=== PATIENT | male | born 1960 | race Hispanic/Latino ===

== ENCOUNTER 2016-12-19 17:35 | Emergency (ER) | payer MEDICARE, MEDICAID ==
[2016-12-19 17:36] VITALS: PULSE 71
[2016-12-19 17:41] VITALS: BP 114/60; TEMP 98.7
[2016-12-19 17:42] VITALS: BMI 29.9
--- NOTE | 2016-12-19 18:14 | ED PDOC ---
Arrival/HPI - General Chief Complaint: Shortness Of Breath Time Seen by Provider: 12/19/16 17:41 Historian: Patient - History of Present Illness Narrative History of Present Illness (Text): 12/19/16 18:06 A 56 year old male, whose past medical history includes hypertension, CHF on lasix, COPD, atrial fibrillation on coumadin and anemia, presents to the emergency department complaining of worsening cough for the past few days. Patient notes a productive cough but denies any fever, chills, nausea, vomiting , diarrhea, abdominal pain, chest pain or any other complaints. He says he does get a little shortness of breathe but that's his baseline. PMD: Dr. Bowman Time/Duration: Other (few days) Symptom Course: Worsening Quality: Other Context: Home Past Medical History - Provider Review Nursing Documentation Reviewed: Yes - Infectious Disease Hx of Infectious Diseases: None - Tetanus Immunization Tetanus Immunization: Unknown - Past Medical History Past Medical History: Non-Contributing - Cardiac Hx Cardiac Disorders: Yes (ASHDSTEPHANIA) Hx Atrial Fibrillation: Yes Hx Congestive Heart Failure: Yes Hx Hypertension: Yes - Pulmonary Hx Respiratory Disorders: Yes Hx Chronic Obstructive Pulmonary Disease (COPD): Yes - Neurological Hx Neurological Disorder: No HX Cerebrovascular Accident: No - HEENT Hx HEENT Disorder: Yes (CONTACTS,WEARS RX GLASSES AT TIMES,H/O OF NOSEBLEEDS) Other/Comment: nosebleeds - Renal Hx Renal Disorder: No - Endocrine/Metabolic Hx Endocrine Disorders: No - Hematological/Oncological Hx Blood Disorders: Yes Hx Anemia: Yes - Integumentary Hx Dermatological Disorder: No - Musculoskeletal/Rheumatological Hx Musculoskeletal Disorders: No Hx Falls: No - Gastrointestinal Hx Gastrointestinal Disorders: Yes (APPENDECTOMY,COLON SURGERY) Hx Gastroesophageal Reflux: Yes Other/Comment: COLS SURGERY A CHILD. PER PT. ,SWALLOWED AN UNKNOWN FOREING OBJ AND SOME PIECES ARE LEFT SHOWED IN XRAYS.DEVELOPED ADHESIONS. - Genitourinary/Gynecological Hx Genitourinary Disorders: No Hx Sexually Transmitted Diseases: No - Psychiatric Hx Psychophysiologic Disorder: No Hx Depression: No Hx Substance Use: No - Past Surgical History Past Surgical History: Non-Contributing - Surgical History Hx Appendectomy: Yes (54 yrs ago) - Anesthesia Hx Anesthesia: Yes Hx Anesthesia Reactions: No Hx Malignant Hyperthermia: No - Suicidal Assessment Feels Threatened In Home Enviroment: No Family/Social History - Physician Review Nursing Documentation Reviewed: Yes Family/Social History: No Known Family HX Smoking Status: Current Some Days Smoker Hx Alcohol Use: No Hx Substance Use: No Substance used: Heroin and opioid use Hx Substance Use Treatment: Yes Allergies/Home Meds Allergies/Adverse Reactions: Allergies No Known Allergies Allergy (Verified 12/19/16 17:42) Home Medications: Home Meds Medication Instructions Recorded Confirmed Warfarin Sodium [Coumadin] 3 mg PO QPM 11/07/13 12/19/16 Roflumilast [Daliresp] 500 mcg PO DAILY 08/04/14 12/19/16 Aspirin [Aspirin EC] 81 mg PO DAILY 11/12/14 12/19/16 Alprazolam [Alprazolam Xr] 0.5 mg PO HS PRN 11/18/15 12/19/16 Digoxin [Lanoxin] 0.125 mg PO BID 11/18/15 12/19/16 Furosemide [Lasix] 40 mg PO QAM 11/18/15 12/19/16 Montelukast [Singulair] 10 mg PO DAILY 11/18/15 12/19/16 Potassium Chloride [Klor-Con 10] 10 meq PO DAILY 11/18/15 12/19/16 Prednisone [Rena] 10 mg PO DAILY 11/18/15 12/19/16 Verapamil [Verapamil HCl] 80 mg PO TID 11/18/15 12/19/16 Arformoterol [Brovana] 15 mcg IH BID 01/27/16 12/19/16 Lubiprostone [Amitiza] 24 mcg PO DAILY 01/27/16 12/19/16 Atenolol [Tenormin] 25 mg PO DAILY 12/19/16 12/19/16 Budesonide [Budesonide] 1 inh INH BID 12/19/16 12/19/16 Digoxin [Lanoxin] 0.125 mg PO DAILY 12/19/16 12/19/16 Polyethylene Glycol 3350 [Miralax] 1 cap PO DAILY 12/19/16 12/19/16 Review of Systems - Physician Review All systems were reviewed & negative as marked: Yes - Review of Systems Constitutional: absent: Fevers, Night Sweats Respiratory: SOB, Cough, Sputum Cardiovascular: absent: Chest Pain Gastrointestinal: absent: Abdominal Pain, Diarrhea, Nausea, Vomiting Physical Exam Vital Signs Reviewed: Yes Vital Signs Temp Pulse Resp BP Pulse Ox 12/19/16 20:14 68 17 96 12/19/16 17:45 22 95 12/19/16 17:40 98.7 F 80 17 114/60 95 Temperature: Afebrile Blood Pressure: Normal Pulse: Regular Respiratory Rate: Normal Appearance: Positive for: Well-Appearing, Non-Toxic, Comfortable Pain Distress: None Mental Status: Positive for: Alert and Oriented X 3 - Systems Exam Head: Present: Atraumatic, Normocephalic Pupils: Present: PERRL Extroacular Muscles: Present: EOMI Conjunctiva: Present: Normal Mouth: Present: Moist Mucous Membranes Neck: Present: Normal Range of Motion. No: JVD Respiratory/Chest: Present: Clear to Auscultation, Good Air Exchange. No: Respiratory Distress, Accessory Muscle Use Cardiovascular: Present: Regular Rate and Rhythm, Normal S1, S2. No: Murmurs Abdomen: Present: Normal Bowel Sounds. No: Tenderness, Distention, Peritoneal Signs Back: Present: Normal Inspection Upper Extremity: Present: Normal Inspection. No: Cyanosis, Edema Lower Extremity: Present: Normal Inspection, NORMAL PULSES. No: Edema, CALF TENDERNESS Neurological: Present: GCS=15, CN II-XII Intact, Speech Normal Skin: Present: Warm, Dry, Normal Color. No: Rashes Psychiatric: Present: Alert, Oriented x 3, Normal Insight, Normal Concentration Medical Decision Making ED Course and Treatment: 12/19/16 18:06 Impression: A 56 year old male with shortness of breath and productive cough. On exam, lungs clear to auscultation bilaterally and no edema. Differential Diagnosis included but are not limited to: Pneumonia vs Bronchitis Plan: -- Chest xray -- EKG -- Labs -- Blood culture -- Reassess and disposition Progress Notes: EKG shows atrial fibrillation at 72 BPM with Q-waves in inferior leads, with no changes from prior on 08/08/16. Interpreted by me. 12/19/16 20:54 Patient's CXR is negative for infiltrate. He saturates at 95-96% on RA. He's on oxygen as needed at home. He denies any shortness of breathe anymore. He was given Doxycycline secondary to elevated WBC and mild bandemia. He does not want to stay in the hospital. He states he wants outpatient treatment and will f/u with Dr. Bowman tomorrow morning. He undestands risk of sepsis and worsening shortness of breathe including disability and . is here with his oxygen to take him home. - Lab Interpretations Lab Results: 12/19/16 18:01 12/19/16 18:01 Lab Results 12/19/16 18:01: Sodium 138, Potassium 4.0, Chloride 95 L, Carbon Dioxide 35 H, Anion Gap 12, BUN 11, Creatinine 0.7, Est GFR ( Amer) > 60, Est GFR (Non- Af Amer) > 60, Random Glucose 131 H, Calcium 9.3, Magnesium 1.9, Lactate Dehydrogenase 326 L, Total Creatine Kinase 43, Troponin I < 0.01, NT-Pro-B Natriuret Pep 327 12/19/16 18:01: PT 23.5 H, INR 2.18 H, APTT 35.7 H 12/19/16 18:01: WBC 12.0 H D, RBC 5.04, Hgb 11.7 L, Hct 37.7 L, MCV 74.8 L, MCH 23.2 L, MCHC 31.0, RDW 20.6 H, Plt Count 273, MPV 10.0, Neutrophils % (Manual) 84 H, Band Neutrophils % 5 H, Lymphocytes % (Manual) 5 L, Monocytes % (Manual) 3 , Eosinophils % (Manual) 3, Platelet Evaluation n, Anisocytosis (manual) 1+, Spherocytes Slight I have reviewed the lab results: Yes Interpretation: Abnormal lab values (elevated wbc and bandemia) - RAD Interpretation Radiology Orders: 12/19/16 18:06 CHEST PORTABLE [RAD] Stat - Medication Orders Current Medication Orders: Discontinued Medications Doxycycline Hyclate (Doryx) 100 mg PO STAT STA PRN Reason: Protocol Stop: 12/19/16 19:07 Last Admin: 12/19/16 19:16 Dose: 100 mg - Scribe Statement The provider has reviewed the documentation as recorded by the Rigoberto Riggs Provider Scribe Attestation: All medical record entries made by the Scribe were at my direction and personally dictated by me. I have reviewed the chart and agree that the record accurately reflects my personal performance of the history, physical exam, medical decision making, and the department course for this patient. I have also personally directed, reviewed, and agree with the discharge instructions and disposition. Disposition/Present on Arrival - Present on Arrival Any Indicators Present on Arrival: No History of DVT/PE: No History of Uncontrolled Diabetes: No Urinary Catheter: No History of Decub. Ulcer: No History Surgical Site Infection Following: None - Disposition Have Diagnosis and Disposition been Completed?: Yes Diagnosis: Bronchitis Disposition: HOME/ ROUTINE Disposition Time: 20:57 Patient Plan: Discharge Condition: IMPROVED Discharge Instructions (ExitCare): Acute Bronchitis (ED) Additional Instructions: Mr Cano, thank you for letting us take care of you today. Your provider was Dr. Underwood. You were treated for Bronchitis. The emergency medical care you received today was directed at your acute symptoms. If you were prescribed any medication, please fill it and take as directed. It may take several days for your symptoms to resolve. Return to the Emergency Department if your symptoms worsen, do not improve, or if you have any other problems. Please contact your doctor or call one of the physicians/clinics you have been referred to that are listed on the Patient Visit Information form that is included in your discharge packet. Bring any paperwork you were given at discharge with you along with any medications you are taking to your follow up visit. Our treatment cannot replace ongoing medical care by a primary care provider (PCP) outside of the emergency department. Thank you for allowing the [facility] team to be part of your care today. If you had an X-Ray or CT scan: A Radiologist will review the ED reading if any change in treatment is needed we will contact you. If you had a blood, urine, or wound culture: It will take several days for the results, if any change in treatment is needed we will contact you. If you had an STI test: It will take 48 hours for the results. Please call after 1 week if you have not heard back. Prescriptions: Doxycycline Hyclate 100 mg PO BID #20 capsule Referrals: Ross Bowman MD [Primary Care Provider] - Follow up with primary Forms: [employer] ([place]ian), WORK NOTE
[2016-12-19 18:32] LABS: BLOOD UREA NITROGEN 11 mg/dL (7-21); CALCIUM 9.3 mg/dL (8.4-10.5); CARBON DIOXIDE 35 mmol/L (21-33); CHLORIDE 95 mmol/L (98-107); GFR AFRICAN-AMERICAN > 60; GLUCOSE,RANDOM 131 mg/dL (70-110); MAGNESIUM 1.9 mg/dL (1.7-2.2); SODIUM 138 mmol/L (132-148)
[2016-12-19 18:33] LABS: HEMATOCRIT 37.7 % (42.0-52.0); MEAN CELL VOLUME 74.8 fL (80.0-105.0); MEAN CORPUSCULAR HEMOGLOBIN 23.2 pg (25.0-35.0); PLATELET COUNT 273 10^3/uL (120.0-450.0); RED CELL DISTRIBUTION WIDTH 20.6 % (11.5-14.5)
[2016-12-19 18:41] LABS: ADD MANUAL DIFF? YES
[2016-12-19 18:44] LABS: TROPONIN I < 0.01 ng/mL
[2016-12-19 18:55] LABS: INR 2.18 (0.93-1.08); PARTIAL THROMBOPLASTIN TIME 35.7 Seconds (23.7-30.8)
[2016-12-19 19:36] LABS: ANISOCYTOSIS 1+; BAND 5 % (0-2); EOSINOPHIL 3 % (0.0-3.0); NEUTROPHIL 84 % (50.0-70.0); PLATELET ESTIMATE n (NORMAL)
[2016-12-19 19:37] LABS: SPHEROCYTE SLIGHT
[2016-12-19 20:22] VITALS: PULSE 68; RESP 17; O2SAT 96
--- NOTE | 2016-12-20 08:22 | RAD ---
HISTORY: cough r/o pna COMPARISON: No prior. FINDINGS: LUNGS: Patchy right basilar opacity. Possible pneumonia. PLEURA: No significant pleural effusion identified, no pneumothorax apparent. CARDIOVASCULAR: Normal. OSSEOUS STRUCTURES: No significant abnormalities. VISUALIZED UPPER ABDOMEN: Normal. OTHER FINDINGS: None. IMPRESSION: Patchy right basilar opacity. Possible pneumonia. Followup advised.
--- NOTE | 2016-12-20 12:45 | CARD ---
APPROVED REPORT EKG Measurement Heart [id number] <Conclusion> Atrial fibrillation Possible Inferior infarct, age undetermined Abnormal ECG
== END 2016-12-19 20:32 | disposition home or self-care (01) ==
LOC: ED 17:35
DX: J20.9 Acute bronchitis, unspecified (principal); I10 Essential (primary) hypertension; I50.9 Heart failure, unspecified; I48.91 Unspecified atrial fibrillation; Z79.01 Long term (current) use of anticoagulants; Z72.0 Tobacco use

== ENCOUNTER 2017-03-31 10:28 | Inpatient (IN) | payer MEDICARE, MEDICAID ==
[2017-03-31 10:32] VITALS: BMI 28.8
[2017-03-31] MEDS ORDERED: Magnesium Sulfate 2 GM in Sodium Chloride 0.9% 100 ML IVPB ONE (11:17)
[2017-03-31 11:18] LABS: BASO # 0.03 K/mm3 (0.0-2.0); BASO % 0.3 % (0.0-3.0); EOS # 0.1 (0.0-0.7); EOS % 0.8 % (1.5-5.0); GRAN # 7.89 (1.4-6.5); GRAN % 85.9 % (50.0-68.0); HEMATOCRIT 30.3 % (42.0-52.0); LYMPH # 0.6 (1.2-3.4); LYMPH % 6.5 % (22.0-35.0); MEAN CELL VOLUME 67.6 fl (80.0-105.0); MEAN CORPUSCULAR HEMOGLOBIN 18.8 pg (25.0-35.0); MEAN CORPUSCULAR HGB CONC 27.7 g/dl (31.0-37.0); MONO # 0.6 (0.1-0.6); MONO % 6.5 % (1.0-6.0); RED CELL DISTRIBUTION WIDTH 18.3 % (11.5-14.5); WHITE BLOOD COUNT 9.2 10^3/ul (4.5-11.0)
[2017-03-31] MEDS ORDERED: Albuterol-Ipratrop 3 mg / 0.5 (3 ml) UD IH STA (11:18)
[2017-03-31 11:28] LABS: ALB/GLOB RATIO 1.5 (1.1-1.8); ALKALINE PHOSPHATASE 78 U/L (38-126); ALT/SGPT 47 U/L (7-56); AST/SGOT 28 U/L (17-59); BILIRUBIN,TOTAL 0.7 mg/dL (0.2-1.3); BLOOD UREA NITROGEN 8 mg/dL (7-21); CALCIUM 8.7 mg/dL (8.4-10.5); CARBON DIOXIDE 31 mmol/L (21-33); CHLORIDE 92 mmol/L (98-107); GFR AFRICAN-AMERICAN > 60; GLUCOSE,RANDOM 156 mg/dL (70-110); INR 1.68 (0.93-1.08); PARTIAL THROMBOPLASTIN TIME 31.4 Seconds (23.7-30.8); POTASSIUM 3.1 mmol/L (3.6-5.0); SODIUM 135 mmol/L (132-148); TOTAL PROTEIN 6.4 g/dL (5.8-8.3)
[2017-03-31] MEDS ORDERED: Potassium Chloride 40 mEq/30 ml LIQ UD PO STA (11:38)
[2017-03-31 11:44] LABS: TROPONIN I < 0.01 ng/mL
[2017-03-31] MEDS ORDERED: Albuterol-Ipratrop 3 mg / 0.5 (3 ml) UD IH PRN (12:09)
[2017-03-31] MEDS: MethylPREDNISolone 40 mg Vial IVP SCH ×2 (12:18→20:44)
[2017-03-31] MEDS: levoFLOXacin 500 MG TAB PO SCH (12:21)
--- NOTE | 2017-03-31 12:35 | RAD ---
HISTORY: sob COMPARISON: 12/19/2016 FINDINGS: LUNGS: No active pulmonary disease. Minimal bibasilar atelectasis PLEURA: No significant pleural effusion identified, no pneumothorax apparent. CARDIOVASCULAR: Normal. OSSEOUS STRUCTURES: No significant abnormalities. VISUALIZED UPPER ABDOMEN: Normal. OTHER FINDINGS: None. IMPRESSION: No active disease.
--- NOTE | 2017-03-31 12:37 | ED PDOC ---
Arrival/HPI - General Chief Complaint: Shortness Of Breath Time Seen by Provider: 03/31/17 11:17 Historian: Patient - History of Present Illness Narrative History of Present Illness (Text): 03/31/17 12:35 A 57 year old male, whose past medical history includes respiratory failure, COPD exacerbation, PNA, dyspnea, CHF, anemia, drug abuse, and drug dependence, presents to the emergency department with shortness of breath, which began 3 days ago. The patient also reports of a chronic cough and he notes that his lower extremities are a little more swollen than usual. The patient denies any fever, chest pain, abdominal pain, headaches, or any other complaints at this time. The patient is compliant with his medication and is currently on Home L2. Time/Duration: < week (x 3 days ) Symptom Onset: Gradual Symptom Course: Other Activities at Onset: Light Context: Home Past Medical History - Provider Review Nursing Documentation Reviewed: Yes - Infectious Disease Hx of Infectious Diseases: None - Tetanus Immunization Tetanus Immunization: Unknown - Past Medical History Past Medical History: Non-Contributing - Cardiac Hx Cardiac Disorders: Yes (STEPHANIA HUDSON) Hx Atrial Fibrillation: Yes Hx Congestive Heart Failure: Yes Hx Hypertension: Yes - Pulmonary Hx Respiratory Disorders: Yes Hx Chronic Obstructive Pulmonary Disease (COPD): Yes - Neurological Hx Neurological Disorder: No HX Cerebrovascular Accident: No - HEENT Hx HEENT Disorder: Yes (CONTACTS,WEARS RX GLASSES AT TIMES,H/O OF NOSEBLEEDS) Other/Comment: nosebleeds - Renal Hx Renal Disorder: No - Endocrine/Metabolic Hx Endocrine Disorders: No - Hematological/Oncological Hx Blood Disorders: Yes Hx Anemia: Yes - Integumentary Hx Dermatological Disorder: No - Musculoskeletal/Rheumatological Hx Musculoskeletal Disorders: No Hx Falls: No - Gastrointestinal Hx Gastrointestinal Disorders: Yes (APPENDECTOMY,COLON SURGERY) Hx Gastroesophageal Reflux: Yes Other/Comment: COLS SURGERY A CHILD. PER PT. ,SWALLOWED AN UNKNOWN FOREING OBJ AND SOME PIECES ARE LEFT SHOWED IN XRAYS.DEVELOPED ADHESIONS. - Genitourinary/Gynecological Hx Genitourinary Disorders: No Hx Sexually Transmitted Diseases: No - Psychiatric Hx Psychophysiologic Disorder: No Hx Depression: No Hx Substance Use: No - Past Surgical History Past Surgical History: Non-Contributing - Surgical History Hx Appendectomy: Yes (54 yrs ago) - Anesthesia Hx Anesthesia: Yes Hx Anesthesia Reactions: No Hx Malignant Hyperthermia: No - Suicidal Assessment Feels Threatened In Home Enviroment: No Family/Social History - Physician Review Nursing Documentation Reviewed: Yes Family/Social History: No Known Family HX Smoking Status: Former Smoker Hx Alcohol Use: No Hx Substance Use: No Substance used: Heroin and opioid use Hx Substance Use Treatment: Yes Allergies/Home Meds Allergies/Adverse Reactions: Allergies No Known Allergies Allergy (Verified 03/31/17 14:21) Home Medications: Home Meds Medication Instructions Recorded Confirmed Warfarin Sodium [Coumadin] 3 mg PO QPM 11/07/13 03/31/17 Roflumilast [Daliresp] 500 mcg PO DAILY 08/04/14 03/31/17 Aspirin [Aspirin EC] 81 mg PO DAILY 11/12/14 03/31/17 Alprazolam [Alprazolam Xr] 0.5 mg PO HS PRN 11/18/15 03/31/17 Furosemide [Lasix] 40 mg PO QAM 11/18/15 03/31/17 Montelukast [Singulair] 10 mg PO DAILY 11/18/15 03/31/17 Potassium Chloride [Klor-Con 10] 10 meq PO DAILY 11/18/15 03/31/17 Prednisone [Rena] 10 mg PO DAILY 11/18/15 03/31/17 Verapamil [Verapamil HCl] 80 mg PO TID 11/18/15 03/31/17 Arformoterol [Brovana] 15 mcg IH BID 01/27/16 03/31/17 Lubiprostone [Amitiza] 24 mcg PO DAILY 01/27/16 03/31/17 Atenolol [Tenormin] 25 mg PO DAILY 12/19/16 03/31/17 Budesonide [Budesonide] 1 inh INH BID 12/19/16 03/31/17 Digoxin [Lanoxin] 0.125 mg PO DAILY 12/19/16 03/31/17 Polyethylene Glycol 3350 [Miralax] 1 cap PO DAILY 12/19/16 03/31/17 oxyCODONE [oxyCODONE Immediate 15 mg PO TID 03/31/17 03/31/17 Release Tab] Review of Systems - Physician Review All systems were reviewed & negative as marked: Yes - Review of Systems Constitutional: absent: Fevers Respiratory: SOB, Cough Cardiovascular: absent: Chest Pain Gastrointestinal: absent: Abdominal Pain Musculoskeletal: Other (swelling in the lower extremities) Neurological: absent: Headache Physical Exam Vital Signs Reviewed: Yes Vital Signs Temp Pulse Pulse Resp BP Pulse Ox 03/31/17 14:34 91 H 116/52 L 03/31/17 14:22 98.7 F 87 104 H 18 116/52 L 93 L 03/31/17 11:39 104/56 L 03/31/17 10:37 98.7 F 104 H 114/53 L 89 L 03/31/17 10:28 20 Temperature: Afebrile Blood Pressure: Normal Pulse: Regular Respiratory Rate: Normal Appearance: Positive for: Well-Appearing, Non-Toxic, Comfortable Pain Distress: None Mental Status: Positive for: Alert and Oriented X 3 - Systems Exam Head: Present: Atraumatic, Normocephalic Pupils: Present: PERRL Extroacular Muscles: Present: EOMI Conjunctiva: Present: Normal Mouth: Present: Moist Mucous Membranes Neck: Present: Normal Range of Motion Respiratory/Chest: Present: Good Air Exchange, Wheezes (bilateral expiratory wheezing). No: Respiratory Distress, Accessory Muscle Use Cardiovascular: Present: Regular Rate and Rhythm, Normal S1, S2. No: Murmurs Abdomen: Present: Normal Bowel Sounds. No: Tenderness, Distention, Peritoneal Signs Back: Present: Normal Inspection Upper Extremity: Present: Normal Inspection. No: Cyanosis, Edema Lower Extremity: Present: Edema (1+ edema bilaterally ) Neurological: Present: GCS=15, CN II-XII Intact, Speech Normal Skin: Present: Warm, Dry, Normal Color. No: Rashes Psychiatric: Present: Alert, Oriented x 3, Normal Insight, Normal Concentration Medical Decision Making ED Course and Treatment: 03/31/17 12:39 Impression: A 57 year old male with shortness of breath Differential Diagnosis included but are not limited to: Plan: -- EKG -- Physician Consult -- Chest X-ray -- Douneb, Budesonide, Lasix, Levaquin, Predinsode, IV Fluids -- Reassess and disposition -- Hospital admisison Prior Visits: Notes and results from previous visits were reviewed. The patient was last seen in the emergency department on 12/19/16 for shortness of breath. The patient was discharged home. Progress Notes: 03/31/17 12:41 EKG: Ordered, reviewed, and independently interpreted the EKG. Rate : 101 BPM Rhythm : Sinus Tachycardia Interpretation : No ST-segment elevations or depressions, no T-wave inversions, normal intervals. Comparison : No previous EKG for comparison. - Lab Interpretations Lab Results: 03/31/17 10:45 03/31/17 10:45 Lab Results 03/31/17 10:45: Iron 11 L, TIBC 416, % Saturation 3 L 03/31/17 10:45: Ferritin 8.9, Vitamin B12 577, Folate Pending 03/31/17 10:45: NT-Pro-B Natriuret Pep 296 03/31/17 10:45: Digoxin 0.7 L 03/31/17 10:45: Sodium 135, Potassium 3.1 L, Chloride 92 L, Carbon Dioxide 31, Anion Gap 15, BUN 8, Creatinine 0.7, Est GFR ( Amer) > 60, Est GFR (Non- Af Amer) > 60, Random Glucose 156 H, Calcium 8.7, Total Bilirubin 0.7, AST 28, ALT 47, Alkaline Phosphatase 78, Lactate Dehydrogenase 420, Total Creatine Kinase 39, Troponin I < 0.01, Total Protein 6.4, Albumin 3.8, Globulin 2.6, Albumin/Globulin Ratio 1.5 03/31/17 10:45: PT 18.1 H, INR 1.68 H, APTT 31.4 H 03/31/17 10:45: WBC 9.2 D, RBC 4.48, Hgb 8.4 L, Hct 30.3 L, MCV 67.6 L, MCH 18.8 L, MCHC 27.7 L, RDW 18.3 H, Plt Count 216, MPV 9.0, Gran % 85.9 H, Lymph % (Auto) 6.5 L, [place] % (Auto) 6.5 H, Eos % (Auto) 0.8 L, Baso % (Auto) 0.3, Gran # 7.89 H, Lymph # 0.6 L, [place] # 0.6, Eos # 0.1, Baso # 0.03 - RAD Interpretation Radiology Orders: 03/31/17 11:06 CHEST PORTABLE [RAD] Stat - Medication Orders Current Medication Orders: Albuterol/Ipratropium (Duoneb 3 Mg/0.5 Mg (3 Ml) Ud) 3 ml IH [id number] ERNESTINA Last Admin: 03/31/17 14:33 Dose: 3 ml Albuterol/Ipratropium (Duoneb 3 Mg/0.5 Mg (3 Ml) Ud) 3 ml IH Q2H PRN PRN Reason: Shortness of Breath Aspirin (Ecotrin) 81 mg PO DAILY [facility] Last Admin: 03/31/17 12:50 Dose: Atenolol (Tenormin) 25 mg PO DAILY [facility] Last Admin: 03/31/17 14:34 Dose: 25 mg Budesonide (Pulmicort Respules) 0.5 mg IH [id number] [facility] Digoxin (Lanoxin) 0.125 mg PO DAILY [facility] Last Admin: 03/31/17 14:32 Dose: 0.125 mg Furosemide (Lasix) 40 mg PO QAM [facility] Levofloxacin (Levaquin) 500 mg PO DAILY [facility] Last Admin: 03/31/17 12:21 Dose: 500 mg Methylprednisolone (Solu-Medrol) 40 mg IVP Q8H [facility] Last Admin: 03/31/17 12:18 Dose: Non-Formulary Medication (Alprazolam [Alprazolam Xr]) 0.5 mg PO HS PRN PRN Reason: Anxiety Non-Formulary Medication (Lubiprostone [Amitiza]) 24 mcg PO DAILY [facility] Last Admin: 03/31/17 15:36 Dose: Oxycodone HCl (Oxycodone Immediate Release Tab) 15 mg PO TID [facility] Last Admin: 03/31/17 14:32 Dose: 15 mg Verapamil HCl (Calan Tab) 80 mg PO TID [facility] Last Admin: 03/31/17 14:48 Dose: Warfarin Sodium (Coumadin) 3 mg PO QPM [facility] Discontinued Medications Albuterol/Ipratropium (Duoneb 3 Mg/0.5 Mg (3 Ml) Ud) 3 ml IH STAT STA Stop: 03/31/17 11:19 Last Admin: 03/31/17 11:25 Dose: 3 ml Furosemide (Lasix) 20 mg IVP STAT STA Stop: 03/31/17 11:19 Last Admin: 03/31/17 11:39 Dose: 20 mg Magnesium Sulfate 2 gm/ Sodium (Chloride) 104 mls @ 102 mls/hr IVPB ONCE ONE Stop: 03/31/17 12:18 Last Admin: 03/31/17 11:41 Dose: 102 mls/hr Methylprednisolone (Solu-Medrol) 125 mg IVP STAT STA Stop: 03/31/17 11:18 Last Admin: 03/31/17 11:35 Dose: Pneumococcal Polyvalent Vaccine (Pneumovax 23 Vaccine) 0.5 ml IM .ONCE ONE Stop: 03/31/17 15:00 Potassium Chloride (Potassium Chloride Oral Soln) 40 meq PO STAT STA Stop: 03/31/17 11:39 Last Admin: 03/31/17 11:46 Dose: 40 meq - Scribe Statement The provider has reviewed the documentation as recorded by the Rigoberto Tomlinson Provider Scribe Attestation: All medical record entries made by the Rigoberto were at my direction and personally dictated by me. I have reviewed the chart and agree that the record accurately reflects my personal performance of the history, physical exam, medical decision making, and the department course for this patient. I have also personally directed, reviewed, and agree with the discharge instructions and disposition. Disposition/Present on Arrival - Present on Arrival Any Indicators Present on Arrival: No History of DVT/PE: No History of Uncontrolled Diabetes: No Urinary Catheter: No History of Decub. Ulcer: No History Surgical Site Infection Following: None - Disposition Have Diagnosis and Disposition been Completed?: Yes Diagnosis: COPD exacerbation, Dyspnea Disposition: HOSPITALIZED Disposition Time: 11:40 Condition: FAIR ED Critical Care Documentation - Critical Care Total Time (mins): 30 Documented critical care: time excludes all time spent performing seperately billable procedures.
[2017-03-31] MEDS ORDERED: Non Formulary Medication (Alprazolam [Alprazolam Xr] 0.5 MG) PO PRN (12:43)
[2017-03-31 13:37] LABS: IRON 11 ug/dL (45-180)
[2017-03-31] MEDS: Albuterol-Ipratrop 3 mg / 0.5 (3 ml) UD IH SCH ×2 (14:31→14:33)
[2017-03-31] MEDS: oxyCODONE 15 mg Immediate Release Tab PO SCH ×2 (14:32→17:53)
[2017-03-31] MEDS: Digoxin 125 mcg (0.125 mg) Tab PO SCH (14:32)
[2017-03-31] MEDS ORDERED: Pneumococcal 23-Valent Vaccine IM ONE (14:59)
[2017-03-31] MEDS: Non Formulary Medication (Lubiprostone [Amitiza] 24 MCG) PO SCH (15:36)
--- NOTE | 2017-03-31 17:05 | CARD ---
APPROVED REPORT EKG Measurement Heart [id number] <Conclusion> Poor data quality, interpretation may be adversely affected Sinus tachycardia Otherwise normal ECG
[2017-03-31 17:21] LABS: FOLATE 9.9 ng/mL
[2017-03-31] MEDS: Budesonide 0.5 mg/2 ml Inhal Susp UD IH SCH (19:37)
--- NOTE | 2017-03-31 21:06 | CON ---
DATE: 03/31/2017 PULMONARY CONSULTATION HISTORY OF PRESENT ILLNESS: The patient is a 57-year-old male with past medical history significant for advanced chronic obstructive pulmonary disease, on home oxygen, positive extensive smoking history, coronary artery disease, myocardial infarction in the past, cardiomyopathy, cardiac arrhythmias, chronic anemia, who presents to [facility] (Formerly [facility]) with a 3-day history of worsening shortness of breath at rest, dyspnea on exertion, cough, and minimal sputum production. There is no history of chest pain, coughing up of blood, or chest pain-made worse with deep respirations. There is no history of temperatures, chills or infectious exposure. There is no history of night sweats, weight loss or appetite change prior to the above events. No history of leg or calf pains. No history of syncope or diaphoresis. No history of recent travel or trauma. REVIEW OF SYSTEMS: No history of nausea, vomiting, or diarrhea. No acute urinary symptoms. No neurological or musculoskeletal complaints. Rest of the review of system is negative. ALLERGIES: NO KNOWN ALLERGIES. SOCIAL HISTORY: Positive for extensive tobacco usage. Social history also positive for pervious poly substance abuse. Also positive for former alcohol abuse. FAMILY HISTORY: No inheritable diseases. HOME MEDICATIONS: Include oxycodone, Coumadin, verapamil, Daliresp, prednisone, MiraLax, Singulair, Lasix, Lanoxin, budesonide, Tenormin, aspirin, Brovana and alprazolam. PHYSICAL EXAMINATION: GENERAL: The patient is mildly short of breath, but in no acute distress. He is not using accessory muscles for breathing. VITAL SIGNS: Temperature 98.7, pulse 92, respiratory rate 20-22, blood pressure 104/56, and oxygen saturation on nasal cannula is 93%. HEENT: Normocephalic and atraumatic. No JVD. CARDIOVASCULAR: Systolic ejection murmur at the lower left sternal border. No S3 gallop. LUNGS: Decreased breath sounds at the bases. [id number] rhonchi and wheezing bilaterally. EXTREMITIES: No clubbing, cyanosis or edema. Calves are nontender to palpation. GASTROINTESTINAL: Abdomen is soft, nontender, nondistended. Bowel sounds are positive. SKIN: No acute rash. NEUROLOGIC: Limited at the present time. PERTINENT LABORATORY DATA: Chest x-ray was done this morning and reviewed. I also compared the film today with the pervious films. On today's film, there is a mild increase in pulmonary vascular congestion. There are also linear chronic appearing changes at both bases. CBC: White count 9.2, hemoglobin 8.4, hematocrit 30.3, platelets of 216. INR 1.68. Complete metabolic profile: Potassium 3.1, chloride 92, glucose 156. Rest of the metabolic profiles are within normal limits. IMPRESSION: 1. Acute bronchitis. 2. Advanced chronic obstructive pulmonary disease. 3. Coronary artery diseases. 4. Cardiomyopathy. 5. Anemia. PLAN: The patient presents to [facility] (Former[facility]) with a 3-day history of worsening pulmonary symptoms. There is no history of fever or chills. I did review the chest x-ray as above. Compared to the pervious films, there is no significant new change. On physical exam, the patient is in [id number] bronchospasm. His oxygen saturation is 93% on nasal cannula-which is acceptable for him. I will start the patient on moderate dose intravenous steroids, as well as frequent nebulizer treatments. I will also start inhaled Pulmicort. There is no history of temperatures or chills. There is no leukocytosis. However, given the patient's above history and age, I will start the patient on oral antibiotic therapy. The patient will be admitted for close observation. I did discuss the case with Dr. Bryson (emergency room) at length. I will also discuss the above with attending physician. Mane Pineda MD MTDRoberto
--- NOTE | 2017-04-01 00:57 | HP ---
HISTORY OF PRESENT ILLNESS: Mr. Cano is 57-year-old male presented to ED with shortness of breath. He has history of respiratory failure, COPD, history of drug abuse or drug dependence, CHF, anemia, atrial fibrillation. He has chronic anemia. He gets IV infusion on a regular basis. Hemoglobin is low at 8.4. He received IV Solu-Medrol in the ER with some relief in shortness of breath. Also developed swelling of lower extremity. PAST MEDICAL HISTORY: COPD, respiratory failure, atrial fibrillation, congestive cardiac failure, chronic anemia. PAST SURGICAL HISTORY: Appendectomy, colon surgery, GE reflux. FAMILY HISTORY: Noncontributory. PERSONAL HISTORY: History of former smoker. History of substance abuse, heroin, and opioid. ALLERGIES: NO KNOWN DRUG ALLERGIES. HOME MEDICATION: Digoxin 0.125 mg daily, oxycodone p.r.n., atenolol 25 mg daily, Amitiza 24 mcg daily, Brovana 15 mcg b.i.d., Verapamil 80 mg p.o. t.i.d. REVIEW OF SYSTEMS: As per HPI. Rest of the 12-point review of systems reviewed and negative. PHYSICAL EXAMINATION: GENERAL: Comfortable in bed, mild respiratory distress. VITAL SIGNS: Respiratory rate 20 per minute, blood pressure 114/80, heart rate is 89 per minute, temperature 98.7. HEENT: Normal. Pallor positive. CHEST: Air entry present and equal and bilaterally. No added sounds. CARDIOVASCULAR: S1 and S2 normal. No murmur, rub, or gallop. EXTREMITIES: 1+ edema bilaterally. NEUROLOGIC: Alert and oriented x3. No focal sensory or motor deficit. SKIN: Warm, dry. No rash. 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 No focal sensory of motor deficit. PSYCH: Normal. LABORATORY DATA: White count 9.2, hemoglobin 8.4, hematocrit 30.3, platelet count 216. Sodium 135, potassium 3.1, glucose 154. ASSESSMENT: 1. Chronic obstructive pulmonary disease acute exacerbation. 2. Atrial fibrillation. 3. Congestive heart failure. 4. Chronic anemia, iron deficiency. 5. History of drug abuse. PLAN: Admit tele monitoring, pulmonary consultation Dr. Pineda requested. DuoNeb q.6h. p.r.n., Solu-Medrol 40 mg q.8h. Continue cardiac medications, verapamil 80 mg p.o. t.i.d., Lasix 40 mg daily, atenolol 25 mg daily, aspirin 81 mg daily. Oxycodone p.r.n. for pain. Continue anticoagulation with Coumadin 3 mg daily. Monitor PT/INR. Digoxin 0.125 mg daily. Hemoglobin and hematocrit low 8.4, chronic iron deficiency anemia. We will give the one dose of IVR 200 mg. Iron study is ordered. Iron 11 percentage saturation is 3. He had extensive GI workup in the past, but source of bleeding could not be found. Discussed with the patient. Discussed with the staff nurse. Jina Cowart MD
--- NOTE | 2017-04-01 02:10 | CP.PCM.PN ---
Subjective - Date & Time of Evaluation Date of Evaluation: 04/01/17 Time of Evaluation: 02:08 - Subjective Subjective: Patient was seen at bedside. Nurse had called and told that he has stomach pain and can not sleep. States that he is on xanax and can not sleep without xanax. Also states that his stomach was hurting bun not anymore. Denies chest pain , sob, nausea, vomiting. ROS: Negative except as mentioned above. Medical record was reviewed. This 57 year old white male was admitted Has PMH of COPD, CHF, atiral fibrillation, chronic anemia,GERD, appendectomy, colon surgery. draft stoamch pain + can't sleep does not want oxycodone for stomach pain. xanax instead of xanax xr Objective - Vital Signs/Intake and Output Vital Signs (last 24 hours): Temp Pulse Resp BP Pulse Ox 98.1 F 95 H 22 130/75 93 L 03/31/17 18:00 03/31/17 18:00 03/31/17 18:00 03/31/17 18:00 03/31/17 14:22 Intake and Output: 03/31/17 04/01/17 18:59 06:59 Output Total 980 Balance -980 - Medications Medications: Current Medications Albuterol/Ipratropium (Duoneb 3 Mg/0.5 Mg (3 Ml) Ud) 3 ml IH [id number] [facility] Last Admin: 03/31/17 14:33 Dose: 3 ml Albuterol/Ipratropium (Duoneb 3 Mg/0.5 Mg (3 Ml) Ud) 3 ml IH Q2H PRN PRN Reason: Shortness of Breath Last Admin: 03/31/17 19:40 Dose: 3 ml Aspirin (Ecotrin) 81 mg PO DAILY [facility] Last Admin: 03/31/17 12:50 Dose: Not Given Atenolol (Tenormin) 25 mg PO DAILY [facility] Last Admin: 03/31/17 14:34 Dose: 25 mg Budesonide (Pulmicort Respules) 0.5 mg IH [id number] [facility] Last Admin: 03/31/17 19:37 Dose: 0.5 mg Digoxin (Lanoxin) 0.125 mg PO DAILY [facility] Last Admin: 03/31/17 14:32 Dose: 0.125 mg Furosemide (Lasix) 40 mg PO QAM [facility] Levofloxacin (Levaquin) 500 mg PO DAILY [facility] Last Admin: 03/31/17 12:21 Dose: 500 mg Methylprednisolone (Solu-Medrol) 40 mg IVP Q8H [facility] Last Admin: 03/31/17 20:44 Dose: 40 mg Non-Formulary Medication (Alprazolam [Alprazolam Xr]) 0.5 mg PO HS PRN PRN Reason: Anxiety Non-Formulary Medication (Lubiprostone [Amitiza]) 24 mcg PO DAILY [facility] Last Admin: 03/31/17 15:36 Dose: Not Given Oxycodone HCl (Oxycodone Immediate Release Tab) 15 mg PO TID [facility] Last Admin: 03/31/17 17:53 Dose: 15 mg Verapamil HCl (Calan Tab) 80 mg PO TID [facility] Last Admin: 03/31/17 17:50 Dose: 80 mg Warfarin Sodium (Coumadin) 3 mg PO QPM [facility] Last Admin: 03/31/17 17:53 Dose: 3 mg - Labs Labs: PT 18.1 Seconds (9.9-11.8) H 03/31/17 10:45 INR 1.68 (0.93-1.08) H 03/31/17 10:45 APTT 31.4 Seconds (23.7-30.8) H 03/31/17 10:45 Laboratory Last Values WBC 9.2 10^3/ul (4.5-11.0) D 03/31/17 10:45 RBC 4.48 10^6/uL (3.5-6.1) 03/31/17 10:45 Hgb 8.4 g/dL (14.0-18.0) L 03/31/17 10:45 Hct 30.3 % (42.0-52.0) L 03/31/17 10:45 MCV 67.6 fl (80.0-105.0) L 03/31/17 10:45 MCH 18.8 pg (25.0-35.0) L 03/31/17 10:45 MCHC 27.7 g/dl (31.0-37.0) L 03/31/17 10:45 RDW 18.3 % (11.5-14.5) H 03/31/17 10:45 Plt Count 216 10^3/uL (120.0-450.0) 03/31/17 10:45 MPV 9.0 fl (7.0-11.0) 03/31/17 10:45 Gran % 85.9 % (50.0-68.0) H 03/31/17 10:45 Lymph % (Auto) 6.5 % (22.0-35.0) L 03/31/17 10:45 Hitchcock % (Auto) 6.5 % (1.0-6.0) H 03/31/17 10:45 Eos % (Auto) 0.8 % (1.5-5.0) L 03/31/17 10:45 Baso % (Auto) 0.3 % (0.0-3.0) 03/31/17 10:45 Gran # 7.89 (1.4-6.5) H 03/31/17 10:45 Lymph # 0.6 (1.2-3.4) L 03/31/17 10:45 Hitchcock # 0.6 (0.1-0.6) 03/31/17 10:45 Eos # 0.1 (0.0-0.7) 03/31/17 10:45 Baso # 0.03 K/mm3 (0.0-2.0) 03/31/17 10:45 PT 18.1 Seconds (9.9-11.8) H 03/31/17 10:45 INR 1.68 (0.93-1.08) H 03/31/17 10:45 APTT 31.4 Seconds (23.7-30.8) H 03/31/17 10:45 Sodium 135 mmol/L (132-148) 03/31/17 10:45 Potassium 3.1 mmol/L (3.6-5.0) L 03/31/17 10:45 Chloride 92 mmol/L (98-107) L 03/31/17 10:45 Carbon Dioxide 31 mmol/L (21-33) 03/31/17 10:45 Anion Gap 15 (10-20) 03/31/17 10:45 BUN 8 mg/dL (7-21) 03/31/17 10:45 Creatinine 0.7 mg/dL (0.5-1.4) 03/31/17 10:45 Est GFR ( Amer) > 60 03/31/17 10:45 Est GFR (Non-Af Amer) > 60 03/31/17 10:45 Random Glucose 156 mg/dL (70-110) H 03/31/17 10:45 Calcium 8.7 mg/dL (8.4-10.5) 03/31/17 10:45 Iron 11 ug/dL (45-180) L 03/31/17 10:45 TIBC 416 ug/dL (261-462) 03/31/17 10:45 % Saturation 3 % (20-55) L 03/31/17 10:45 Ferritin 8.9 ng/mL 03/31/17 10:45 Total Bilirubin 0.7 mg/dL (0.2-1.3) 03/31/17 10:45 AST 28 U/L (17-59) 03/31/17 10:45 ALT 47 U/L (7-56) 03/31/17 10:45 Alkaline Phosphatase 78 U/L (38-126) 03/31/17 10:45 Lactate Dehydrogenase 420 U/L (333-699) 03/31/17 10:45 Total Creatine Kinase 39 U/L (35-230) 03/31/17 10:45 Troponin I < 0.01 ng/mL 03/31/17 10:45 NT-Pro-B Natriuret Pep 296 pg/mL (0-450) 03/31/17 10:45 Total Protein 6.4 g/dL (5.8-8.3) 03/31/17 10:45 Albumin 3.8 g/dL (3.0-4.8) 03/31/17 10:45 Globulin 2.6 gm/dL 03/31/17 10:45 Albumin/Globulin Ratio 1.5 (1.1-1.8) 03/31/17 10:45 Vitamin B12 577 pg/mL (239-931) 03/31/17 10:45 Folate 9.9 ng/mL 03/31/17 10:45 Digoxin 0.7 ng/mL (0.8-2.0) L 03/31/17 10:45 - Constitutional Appears: Well, No Acute Distress - Head Exam Head Exam: ATRAUMATIC, NORMAL INSPECTION, NORMOCEPHALIC - Eye Exam Eye Exam: Normal appearance - ENT Exam ENT Exam: Normal External Ear Exam - Neck Exam Neck Exam: Normal Inspection - Respiratory Exam Respiratory Exam: NORMAL BREATHING PATTERN - Cardiovascular Exam Cardiovascular Exam: absent: JVD - GI/Abdominal Exam GI & Abdominal Exam: absent: Distended - Rectal Exam Rectal Exam: Deferred - Exam Additional comments: Deferred. - Extremities Exam Extremities Exam: Normal Inspection - Back Exam Back Exam: NORMAL INSPECTION - Neurological Exam Neurological Exam: Alert, Oriented x3 - Psychiatric Exam Psychiatric exam: Normal Affect, Normal Mood - Skin Skin Exam: Normal Color Assessment and Plan - Assessment and Plan (Free Text) Assessment: Anxiety. CHF. COPD. Atrial fibrillation. Chronic anemia. GERD. Plan: Xanax 0.5 mg PO now . Continue present management.
[2017-04-01] MEDS: Albuterol-Ipratrop 3 mg / 0.5 (3 ml) UD IH SCH ×4 (02:46→20:35)
[2017-04-01] MEDS: MethylPREDNISolone 40 mg Vial IVP SCH ×3 (05:43→21:58)
[2017-04-01] MEDS: Budesonide 0.5 mg/2 ml Inhal Susp UD IH SCH ×2 (07:32→20:35)
[2017-04-01] MEDS: Digoxin 125 mcg (0.125 mg) Tab PO SCH (09:52)
[2017-04-01] MEDS: levoFLOXacin 500 MG TAB PO SCH (09:53)
[2017-04-01] MEDS: oxyCODONE 15 mg Immediate Release Tab PO SCH ×3 (09:53→17:08)
[2017-04-01] MEDS: Non Formulary Medication (Lubiprostone [Amitiza] 24 MCG) PO SCH (09:54)
--- NOTE | 2017-04-01 12:52 | RAD ---
HISTORY: pneumonia COMPARISON: Chest x-ray performed 03/31/17 TECHNIQUE: Chest PA and lateral FINDINGS: Examination limited by habitus. LUNGS: Linear atelectasis involving the right middle and lower lobe. Streaky retrocardiac atelectasis/ infiltrate. PLEURA: No significant pleural effusion identified. No definite pneumothorax . CARDIOVASCULAR: Heart size appears within normal limits. OSSEOUS STRUCTURES: Degenerative changes. VISUALIZED UPPER ABDOMEN: Unremarkable. OTHER FINDINGS: None. IMPRESSION: Linear atelectasis involving the right middle and lower lobe. Streaky retrocardiac atelectasis/ infiltrate.
--- NOTE | 2017-04-01 12:56 | PN ---
DATE: 04/01/2017 SUBJECTIVE: The patient has no complaints of any chest pain and no shortness of breath. No headaches or dizziness. He states that the breathing is better. PHYSICAL EXAMINATION VITAL SIGNS: Temperature is 98.1, pulse of 95, blood pressure of 130/75, and respiration of 22. GENERAL: The patient is lying in bed, flat, comfortable. HEENT: No oral lesion. Anicteric sclerae. Moist mucosa. NECK: No JVD, adenopathy, or thyromegaly. CARDIOVASCULAR: S1 and S2, regular. No murmurs, rubs, or gallops. LUNGS: Clear to auscultation bilaterally. No wheeze, rales, or rhonchi. ABDOMEN: Bowel sounds are positive, soft, nontender and nondistended. EXTREMITIES: no cyanosis, clubbing or edema. ASSESSMENT: 1. Acute chronic obstructive pulmonary disease exacerbation. 2. Atrial fibrillation on Coumadin. 3. Anemia, iron deficiency type. 4. Peptic ulcer disease. PLAN: The patient is currently comfortable. He is on verapamil. He want to continue on Coumadin for anticoagulation. The patient is on albuterol. He is on Lasix steroid. The patient is on antibiotics of Levaquin. He is on pain medications oxycodone. The patient is receiving atenolol for his atrial fibrillation and he is on a heart healthy diet. We will continue his steroids and nebulizer treatments. We will continue to follow closely. He is improving clinically. Johnathon Willoughby MD
[2017-04-01 14:13] VITALS: RESP 18
--- NOTE | 2017-04-01 17:12 | PN ---
DATE: 04/01/2017 PULMONARY PROGRESS NOTE SUBJECTIVE: Saturnino is doing significantly better than yesterday. He appeared near desk and is actually miraculously better today. He is anxious to be discharge, but he is really not ready for any such move. He is feeling better. The x-ray originally was poor quality with etiology unclear. It needs to be repeated with PA and lateral films to decide if there is any underlying atelectasis infiltrate, pleural effusion, pneumonia, etc. He is feeling better on medications. He needs to have this corticosteroids decrease slightly. We will follow him very, very closely. He was telling me much about his Daliresp. Although, the medication has helped him dramatically. It is way to expensive. He needs pre-authorization that he felt to ask us for because he missed several appointments. We will try to do this for him and if not possible, try to get samples for him in the interim. There is no change in history from what is going from the chart. PHYSICAL EXAMINATION: GENERAL: He is resting comfortably. VITAL SIGNS: Stable. He is afebrile. His heart rate is 80, respiratory rate 16, oxygen sat 97% on supplement oxygen. HEENT: Head is normocephalic, atraumatic. NECK: Supple. No JVD. No bruits. No thyromegaly or mass. CARDIOVASCULAR: Regular rhythm, S1 and S2. No gallops is heard. There is a soft systolic ejection murmur at the lower left sternal border. CHEST: Global decrease in breath sounds, mild rhonchi throughout both lung sousa. Wheezing is still noted bilaterally although it is markedly decreased. ABDOMEN: Soft. Bowel sounds normoactive without mass, guarding, rebound, or organomegaly. EXTREMITIES: Reveal no clubbing, cyanosis. There is trace edema. There is no Homans sign. SKIN: She has no rash or excoriation. NEUROLOGIC: No focal findings. Motor and sensory incoordination is normal. Babinski's downgoing. Deep tendon refluxes is normal. Lymphadenopathy is not present. The supraclavicular notch is clear. There are no nodes palpated in the cervical, inguinal or axillary areas. LABORATORY STUDIES: No new x-ray has been completed, but it needs to be done with a good PA and lateral film. CLINICAL IMPRESSION: 1. Severe chronic obstructive pulmonary disease. This is close to end-stage disease on Daliresp and multiple other medications. 2. Acute bronchitis. 3. Coronary artery disease. 4. Pulmonary vascular congestion, status post. 5. Cardiomyopathy. PLAN: The patient needs a PA and lateral chest. He needs to have this corticosteroid decreased. I need to see if there is any additional change noted. Although, he is clinically better. He is obviously not well enough to go home. We will continue him on bronchodilators, anticholinergics, Daliresp and inhaled corticosteroids. He is still getting nebulizer therapy. No additional problems are noted at this time. We had a long discussion and we will try to push him forward, no longer needs telemetry according to his PMD and we will follow him on the floor. Thank you for the opportunity to see this kemi gentleman. We will see him again in the morning before sending him back to my usual colleagues. Bob Love MD
[2017-04-01] MEDS ORDERED: Non Formulary Medication (Alprazolam [Alprazolam Xr] 0.5 MG) PO PRN (22:31)
[2017-04-02] MEDS: Albuterol-Ipratrop 3 mg / 0.5 (3 ml) UD IH SCH ×3 (01:01→13:43)
[2017-04-02] MEDS: MethylPREDNISolone 40 mg Vial IVP SCH (04:10)
[2017-04-02 07:57] VITALS: O2SAT 95
[2017-04-02] MEDS ORDERED: Iron Sucrose 100 mg/5 ml Inj IVP ONE (09:51)
[2017-04-02 10:43] VITALS: TEMP 97.8
[2017-04-02] MEDS: oxyCODONE 15 mg Immediate Release Tab PO SCH (11:02)
[2017-04-02] MEDS: levoFLOXacin 500 MG TAB PO SCH (11:02)
[2017-04-02] MEDS: Digoxin 125 mcg (0.125 mg) Tab PO SCH (11:02)
[2017-04-02] MEDS: Non Formulary Medication (Lubiprostone [Amitiza] 24 MCG) PO SCH (11:03)
[2017-04-02 11:40] VITALS: BP 125/60; PULSE 82
--- NOTE | 2017-04-02 17:20 | PN ---
DATE: 04/02/2017 PULMONARY PROGRESS NOTE LOCATION: Room 371, bed 2. SUBJECTIVE: The patient is markedly better, doing great. He is still in some minor distress. He has only been here for 2 days, but he is doing well. He has underlying atelectasis and infiltrates. He requires a followup chest x-ray. Clinically, he is doing well; however, the corticosteroids need to be further decreased. PHYSICAL EXAMINATION: GENERAL: He is comfortable, no acute respiratory distress. VITAL SIGNS: Stable. HEENT: Normocephalic. NECK: Supple. No bruit or jugular venous distension. CARDIOVASCULAR: Regular rhythm. S1 and S2 without gallop or rub. There is persistent soft systolic ejection murmur. CHEST: Global decrease in breath sounds. Mild rhonchi and wheezes but markedly improved. ABDOMEN: Soft. Bowel sounds normoactive without mass, guarding, or rebound. No organomegaly. EXTREMITIES: Reveal no clubbing, cyanosis, or edema. No Homans sign is noted. SKIN: No rash or excoriation. NEUROLOGIC: Improved. LYMPHS: Lymphadenopathy is not present. IMAGING: X-ray is pending. CLINICAL IMPRESSION: 1. Severe chronic obstructive pulmonary disease, end-stage disease with poor prognosis. The patient is on Daliresp and has multiple medications that require renewal. 2. Steroid dependent at this time. We will decrease the corticosteroids and see if he does well enough to be discharged soon. He must have oral corticosteroids upon discharge and we can taper this as an outpatient if possible. 3. Coronary artery disease. 4. Pulmonary congestion. 5. Vascular congestion. 6. Cardiomyopathy. PLAN: Await to review chest x-ray, decrease corticosteroids. We will decide with you when appropriate time is for discharge. We will follow with you as necessary. Bob Love MD
[2017-04-02] MEDS ORDERED: MethylPREDNISolone 40 mg Vial IVP SCH (22:00)
--- NOTE | 2017-04-04 09:07 | DS ---
SUBJECTIVE: The patient is a 57-year-old male who came into the hospital because of acute COPD exacerbation. He was placed on nebulizer treatments and given IV steroids. He had improvement of his symptoms. The patient was seen by Pulmonary. He had a chest x-ray that was repeated that shows linear atelectasis. He is going to be discharged home today, follow up as an outpatient. He says his breathing is much better. He has no complaints of any headaches or dizziness. PHYSICAL EXAMINATION: VITAL SIGNS: Temperature is 98, pulse 77, blood pressure is 109/57, respirations 18, O2 saturation is 95%. GENERAL: The patient is lying in bed, flat, comfortable. HEENT: No oral lesion. Anicteric sclerae. Moist mucosa. NECK: No JVD, adenopathy, or thyromegaly. CARDIOVASCULAR: S1 and S2, regular. No murmurs, rubs, or gallops. LUNGS: Clear to auscultation bilaterally. No wheeze, rales, or rhonchi. ABDOMEN: Bowel sounds are positive, soft, nontender and nondistended. EXTREMITIES: No cyanosis, clubbing or edema. ASSESSMENT: 1. Acute chronic obstructive pulmonary disease exacerbation. 2. Congestive heart failure due to systolic dysfunction, chronic, stable. 3. Atrial fibrillation. 4. Chronic anemia, iron deficiency type. PLAN: The patient is currently on Coumadin. The patient is on this for his atrial fibrillation. He has a history of peptic ulcer disease. He was given a dose of Venofer yesterday. He is on antibiotics. This will be continued. I will place him on prednisone at this point and discharge him home to followup as an outpatient. CONDITION: Stable. ACTIVITIES: Increase as tolerated. I will give him another dose of Venofer today as he is not able to see his oncologist. Johnathon Willoughby MD
== END 2017-04-02 15:14 | disposition home or self-care (01) | DRG 191 ==
LOC: ED 10:28 → ERH 11:52 → 2RNO 14:42 → 3RSO 04-01 14:08
PROVIDERS: ADMIT Internal Medicine Nephrology; ATTEND Internal Medicine Nephrology
PROC: 3E0F7GC Introduction of Other Therapeutic Substance into Respiratory Tract, Via Natural or Artificial Opening (ICD-10-PCS; principal; 2017-03-31)
DX: J44.1 Chronic obstructive pulmonary disease with (acute) exacerbation (principal); I50.22 Chronic systolic (congestive) heart failure; I11.0 Hypertensive heart disease with heart failure; I42.9 Cardiomyopathy, unspecified; J44.0 Chronic obstructive pulmonary disease with (acute) lower respiratory infection; J20.9 Acute bronchitis, unspecified; J98.11 Atelectasis; I48.91 Unspecified atrial fibrillation; D50.9 Iron deficiency anemia, unspecified; I25.10 Atherosclerotic heart disease of native coronary artery without angina pectoris; F41.9 Anxiety disorder, unspecified; K21.9 Gastro-esophageal reflux disease without esophagitis; K27.9 Peptic ulcer, site unspecified, unspecified as acute or chronic, without hemorrhage or perforation; Z99.81 Dependence on supplemental oxygen; Z79.01 Long term (current) use of anticoagulants; I25.2 Old myocardial infarction; Z79.52 Long term (current) use of systemic steroids; Z90.49 Acquired absence of other specified parts of digestive tract; Z87.891 Personal history of nicotine dependence

== ENCOUNTER 2017-04-30 12:48 | Emergency (ER) | payer MEDICARE, MEDICAID ==
[2017-04-30 12:48] VITALS: PULSE 82; BMI 28.8
[2017-04-30] MEDS ORDERED: Nitroglycerin 2% Ointment Foilpak UD TOP STA (13:09)
[2017-04-30] MEDS ORDERED: Morphine 2 mg/ml ISec IVP STA (13:09)
[2017-04-30 13:13] VITALS: TEMP 98.6
--- NOTE | 2017-04-30 13:25 | ED PDOC ---
Arrival/HPI - General Chief Complaint: Chest Pain Time Seen by Provider: 04/30/17 12:53 Historian: Patient - History of Present Illness Narrative History of Present Illness (Text): 04/30/17 13:19 A 57 year old male, whose past medical history includes COPD, CHF, anemia, Atrial Fibrillation, complaining of onset chest pain, exertional in nature. Patient describes pain as pressure-like. Patient denies of any cough, shortness of breath, leg pain, back pain, or any other complaints. Also, he mentions regularly experiencing shortness of breath. No PMD Symptom Onset: Gradual Symptom Course: Unchanged Quality: Pressure Past Medical History - Provider Review Nursing Documentation Reviewed: Yes - Infectious Disease Hx of Infectious Diseases: None - Tetanus Immunization Tetanus Immunization: Unknown - Past Medical History Past Medical History: Non-Contributing - Cardiac Hx Cardiac Disorders: Yes (ASHD,AAshelyFIB) Hx Atrial Fibrillation: Yes Hx Congestive Heart Failure: Yes Hx Hypertension: Yes - Pulmonary Hx Respiratory Disorders: Yes Hx Chronic Obstructive Pulmonary Disease (COPD): Yes - Neurological Hx Neurological Disorder: No HX Cerebrovascular Accident: No - HEENT Hx HEENT Disorder: Yes (CONTACTS,WEARS RX GLASSES AT TIMES,H/O OF NOSEBLEEDS) Other/Comment: nosebleeds - Renal Hx Renal Disorder: No - Endocrine/Metabolic Hx Endocrine Disorders: No - Hematological/Oncological Hx Blood Disorders: Yes Hx Anemia: Yes - Integumentary Hx Dermatological Disorder: No - Musculoskeletal/Rheumatological Hx Musculoskeletal Disorders: No Hx Falls: No - Gastrointestinal Hx Gastrointestinal Disorders: Yes (APPENDECTOMY,COLON SURGERY) Hx Gastroesophageal Reflux: Yes Other/Comment: COLS SURGERY A CHILD. PER PT. ,SWALLOWED AN UNKNOWN FOREING OBJ AND SOME PIECES ARE LEFT SHOWED IN XRAYS.DEVELOPED ADHESIONS. - Genitourinary/Gynecological Hx Genitourinary Disorders: No Hx Sexually Transmitted Diseases: No - Psychiatric Hx Psychophysiologic Disorder: No Hx Depression: No Hx Substance Use: No - Past Surgical History Past Surgical History: Non-Contributing - Surgical History Hx Appendectomy: Yes (54 yrs ago) - Anesthesia Hx Anesthesia: Yes Hx Anesthesia Reactions: No Hx Malignant Hyperthermia: No - Suicidal Assessment Feels Threatened In Home Enviroment: No Family/Social History - Physician Review Nursing Documentation Reviewed: Yes Family/Social History: No Known Family HX Smoking Status: Former Smoker Hx Alcohol Use: No Hx Substance Use: No Substance used: Heroin and opioid use Hx Substance Use Treatment: Yes Allergies/Home Meds Allergies/Adverse Reactions: Allergies No Known Allergies Allergy (Verified 04/30/17 13:13) Home Medications: Home Meds Medication Instructions Recorded Confirmed Warfarin Sodium [Coumadin] 3 mg PO QPM 11/07/13 04/30/17 Roflumilast [Daliresp] 500 mcg PO DAILY 08/04/14 04/30/17 Aspirin [Aspirin EC] 81 mg PO DAILY 11/12/14 04/30/17 Alprazolam [Alprazolam Xr] 0.5 mg PO HS PRN 11/18/15 04/30/17 Furosemide [Lasix] 40 mg PO QAM 11/18/15 04/30/17 Montelukast [Singulair] 10 mg PO DAILY 11/18/15 04/30/17 Potassium Chloride [Klor-Con 10] 10 meq PO DAILY 11/18/15 04/30/17 Prednisone [Rena] 10 mg PO DAILY 11/18/15 04/30/17 Verapamil [Calan Tab] 80 mg PO TID 11/18/15 04/30/17 Arformoterol [Brovana] 15 mcg IH BID 01/27/16 04/30/17 Lubiprostone [Amitiza] 24 mcg PO DAILY 01/27/16 04/30/17 Atenolol [Tenormin] 25 mg PO DAILY 12/19/16 04/30/17 Budesonide 1 inh INH BID 12/19/16 04/30/17 Polyethylene Glycol 3350 [Miralax] 1 cap PO PRN PRN 12/19/16 04/30/17 oxyCODONE [oxyCODONE Immediate 15 mg PO TID 03/31/17 04/30/17 Release Tab] Review of Systems - Physician Review All systems were reviewed & negative as marked: Yes - Review of Systems Respiratory: absent: SOB, Cough Cardiovascular: Chest Pain (onset chest pain described as pressure-like) Musculoskeletal: absent: Back Pain, Other (no leg pain) Physical Exam Vital Signs Reviewed: Yes Vital Signs Temp Pulse Resp BP Pulse Ox 04/30/17 13:00 98.6 F 78 16 109/65 94 L Temperature: Afebrile Blood Pressure: Normal Pulse: Regular Respiratory Rate: Normal Appearance: Positive for: Well-Appearing Pain Distress: None Mental Status: Positive for: Alert and Oriented X 3 - Systems Exam Head: Present: Atraumatic, Normocephalic Pupils: Present: PERRL Extroacular Muscles: Present: EOMI Conjunctiva: Present: Normal Mouth: Present: Moist Mucous Membranes Neck: Present: Normal Range of Motion Respiratory/Chest: Present: Clear to Auscultation Cardiovascular: Present: Regular Rate and Rhythm, Normal S1, S2. No: Murmurs Abdomen: Present: Normal Bowel Sounds. No: Tenderness, Distention, Peritoneal Signs Back: Present: Normal Inspection Upper Extremity: Present: Normal Inspection. No: Cyanosis, Edema Lower Extremity: Present: Normal Inspection. No: Edema Neurological: Present: GCS=15, CN II-XII Intact, Speech Normal Skin: Present: Warm, Dry, Normal Color. No: Rashes Psychiatric: Present: Alert, Oriented x 3, Normal Insight, Normal Concentration Medical Decision Making ED Course and Treatment: 04/30/17 13:27 Impression: 57 year old male with onset chest pain. Physical exam shows slightly decreased breath sounds b/l. Plan: -- EKG -- Chest X-ray -- Labs -- Morphine -- Nitroglycerin -- Reassess and disposition Prior Visits: Notes and results from previous visits were reviewed. Patient was last seen in the emergency department on 03/31/2017 for shortness of breath. Patient was admitted. Progress Notes: EKG: Ordered, reviewed, and independently interpreted the EKG. Rate : 96 BPM Rhythm : A-Fib Interpretation : Inferior infarct, no specific ST changes. Comparison : No previous EKG for comparison. 04/30/2017 14:48 Chest X-ray IMPRESSION: No active disease. Dictator: De Mckeon 04/30/17 15:[address] Cowart whom is covering to Dr. Bowman, accepts patient into service. 04/30/17 15:34 Leaving Against Medical Advice (AMA): The patient is choosing to leave against medical advice. I have personally explained to the patient that choosing to do so may result in permanent bodily harm or . I have discussed at great length that without further evaluation and monitoring there may be unforeseen circumstances and/or deterioration causing permanent bodily harm or as a result of their choice. The patient is alert, oriented, and shows the mental capacity to make clear decisions regarding the patients health care at this time. The patient continues to wish to leave against medical advice. In light of the patients decision to leave against medical advice, follow-up has been arranged and the patient is aware of the importance to following up as instructed. The patient has been advised that they should return to the emergency room immediately if they change their mind at any time, or if their condition begins to change or worsen in any way. - Lab Interpretations Lab Results: 04/30/17 13:15 04/30/17 13:15 Lab Results 04/30/17 13:15: WBC 10.0, RBC 4.68, Hgb 8.8 L, Hct 31.5 L, MCV 67.3 L, MCH 18.8 L, MCHC 27.9 L, RDW 19.8 H, Plt Count 271, MPV 9.3 04/30/17 13:15: Sodium 138, Potassium 4.2, Chloride 98, Carbon Dioxide 30, Anion Gap 14, BUN 11, Creatinine 0.7, Est GFR ( Amer) > 60, Est GFR (Non- Af Amer) > 60, Random Glucose 142 H, Calcium 9.3, Total Bilirubin 0.4, AST 28, ALT 48, Alkaline Phosphatase 63, Lactate Dehydrogenase 474, Total Creatine Kinase 48, Troponin I < 0.01, Total Protein 6.2, Albumin 3.9, Globulin 2.3, Albumin/Globulin Ratio 1.7 04/30/17 13:15: PT 26.4 H, INR 2.44 H, APTT 39.1 H I have reviewed the lab results: Yes - RAD Interpretation Radiology Orders: 04/30/17 12:59 CHEST PORTABLE [RAD] Stat - Medication Orders Current Medication Orders: Discontinued Medications Morphine Sulfate (Morphine) 2 mg IVP STAT STA Stop: 04/30/17 13:10 Last Admin: 04/30/17 14:12 Dose: Nitroglycerin (Nitro-Bid 2% Oint) 1 ea TOP ONCE STA Stop: 04/30/17 13:10 Last Admin: 04/30/17 14:12 Dose: - Scribe Statement The provider has reviewed the documentation as recorded by the Rigoberto Simms Provider Scribe Attestation: All medical record entries made by the Audieibtiffany were at my direction and personally dictated by me. I have reviewed the chart and agree that the record accurately reflects my personal performance of the history, physical exam, medical decision making, and the department course for this patient. I have also personally directed, reviewed, and agree with the discharge instructions and disposition. Disposition/Present on Arrival - Present on Arrival Any Indicators Present on Arrival: No History of DVT/PE: No History of Uncontrolled Diabetes: No Urinary Catheter: No History of Decub. Ulcer: No History Surgical Site Infection Following: None - Disposition Have Diagnosis and Disposition been Completed?: Yes Diagnosis: Chest pain Disposition: AGAINST MEDICAL ADVICE Disposition Time: 15:36 Patient Problems: Current Active Problems Problem Status Onset Chest pain Acute Condition: STABLE Discharge Instructions (ExitCare): Chest Pain (ED) Forms: [employer] (Malay)
[2017-04-30 13:39] LABS: HEMATOCRIT 31.5 % (42.0-52.0); MEAN CELL VOLUME 67.3 fl (80.0-105.0); MEAN CORPUSCULAR HEMOGLOBIN 18.8 pg (25.0-35.0); MEAN CORPUSCULAR HGB CONC 27.9 g/dl (31.0-37.0); MEAN PLATELET VOLUME 9.3 fl (7.0-11.0); RED CELL DISTRIBUTION WIDTH 19.8 % (11.5-14.5)
[2017-04-30 13:53] LABS: ALB/GLOB RATIO 1.7 (1.1-1.8); ALKALINE PHOSPHATASE 63 U/L (38-126); ALT/SGPT 48 U/L (7-56); AST/SGOT 28 U/L (17-59); BILIRUBIN,TOTAL 0.4 mg/dL (0.2-1.3); BLOOD UREA NITROGEN 11 mg/dL (7-21); CALCIUM 9.3 mg/dL (8.4-10.5); CARBON DIOXIDE 30 mmol/L (21-33); CHLORIDE 98 mmol/L (98-107); GFR AFRICAN-AMERICAN > 60; GLUCOSE,RANDOM 142 mg/dL (70-110); POTASSIUM 4.2 mmol/L (3.6-5.0); SODIUM 138 mmol/L (132-148); TOTAL PROTEIN 6.2 g/dL (5.8-8.3)
[2017-04-30 14:08] LABS: TROPONIN I < 0.01 ng/mL
[2017-04-30 14:12] LABS: INR 2.44 (0.93-1.08); PARTIAL THROMBOPLASTIN TIME 39.1 Seconds (23.7-30.8)
--- NOTE | 2017-04-30 14:50 | RAD ---
HISTORY: chest pain COMPARISON: 04/01/2017 FINDINGS: LUNGS: No active pulmonary disease. PLEURA: No significant pleural effusion identified, no pneumothorax apparent. CARDIOVASCULAR: Normal. OSSEOUS STRUCTURES: No significant abnormalities. VISUALIZED UPPER ABDOMEN: Normal. OTHER FINDINGS: None. IMPRESSION: No active disease.
[2017-04-30 15:42] VITALS: BP 110/79; PULSE 88; RESP 18; O2SAT 98
--- NOTE | 2017-05-01 07:55 | CARD ---
APPROVED REPORT EKG Measurement Heart [id number] <Conclusion> RSR APC's, new Q in 3
== END 2017-04-30 15:44 | disposition left against medical advice (07) ==
LOC: ED 12:48
DX: R07.9 Chest pain, unspecified (principal); I48.91 Unspecified atrial fibrillation

== ENCOUNTER 2017-08-12 21:38 | Inpatient (IN) | payer MEDICARE, MEDICAID ==
--- NOTE | 2017-08-12 21:54 | ED PDOC ---
Arrival/HPI - General Time Seen by Provider: 08/12/17 21:51 Historian: Patient - History of Present Illness Narrative History of Present Illness (Text): 08/12/17 21:54 Demetrio Ghotra is a 57 year old male, whose past medical history includes COPD, paroxysmal atrial fibrillation, CHF, CAD, [place], hypertension, and chronic back pain, who presents to the Emergency department complaining of worsening shortness of breath for 1 hour prior to arrival. Patient reports associated chest pain and back pain. Patient denies any fever, chills, nausea, vomiting, diarrhea, urinary symptoms, neck pain, headache, dizziness, or any other complaints. PMD: Dr. 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 Love Time/Duration: 1 hour Symptom Course: Unchanged Activities at Onset: Light Context: Home Past Medical History - Provider Review Nursing Documentation Reviewed: Yes - Infectious Disease Hx of Infectious Diseases: None - Tetanus Immunization Tetanus Immunization: Unknown - Past Medical History Past Medical History: Non-Contributing - Cardiac Hx Cardiac Disorders: Yes ([place] 10/2012) Hx Cardiac Arrhythmia: Yes Hx Congestive Heart Failure: Yes Hx Hypertension: Yes Hx Peripheral Edema: Yes - Pulmonary Hx Respiratory Disorders: Yes (on home o2) Hx Chronic Obstructive Pulmonary Disease (COPD): Yes Hx Emphysema: Yes Hx Pneumonia: Yes - Neurological Hx Neurological Disorder: No HX Cerebrovascular Accident: No - HEENT Hx HEENT Disorder: Yes (CONTACTS,WEARS RX GLASSES AT TIMES,H/O OF NOSEBLEEDS) Other/Comment: nosebleeds - Renal Hx Renal Disorder: No - Endocrine/Metabolic Other/Comment: steroid induced diabetes - Hematological/Oncological Hx Blood Disorders: Yes Hx Anemia: Yes (blood transfusion) - Integumentary Other/Comment: ble +1 edema pitting slight redness, tatoo r arm, b/l arms discolored - Musculoskeletal/Rheumatological Hx Musculoskeletal Disorders: No Hx Falls: No Other/Comment: sports injuries b/l ankle fx casted, left fx collarbone sports injury - Gastrointestinal Hx Gastrointestinal Disorders: Yes (APPENDECTOMY,COLON SURGERY) Hx Gastroesophageal Reflux: Yes Other/Comment: colon SURGERY A CHILD. PER PT. ,SWALLOWED some coins SHOWED IN XRAYS.DEVELOPED ADHESIONS.pt was about 20 months old - Genitourinary/Gynecological Hx Prostate Problems: Yes (bph) Hx Sexually Transmitted Diseases: No - Psychiatric Hx Anxiety: Yes Hx Depression: No Hx Substance Use: No - Past Surgical History Past Surgical History: Non-Contributing - Surgical History Hx Appendectomy: Yes (53 yrs ago) Other/Comment: colon sx x2 as a child swallowed coins, bx and polypectomy, egd and colonoscopy - Anesthesia Hx Anesthesia: Yes Hx Anesthesia Reactions: No Hx Malignant Hyperthermia: No - Suicidal Assessment Feels Threatened In Home Enviroment: No Family/Social History - Physician Review Nursing Documentation Reviewed: Yes Family/Social History: Unknown Family HX Smoking Status: Former Smoker Hx Alcohol Use: No Hx Substance Use: No 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 Hx Substance Use Treatment: Yes Allergies/Home Meds Allergies/Adverse Reactions: Allergies No Known Allergies Allergy (Verified 08/12/17 22:09) Home Medications: Home Meds Medication Instructions Recorded Confirmed Roflumilast [Daliresp] 500 mcg PO DAILY 08/04/14 06/04/17 Aspirin [Aspirin EC] 81 mg PO DAILY 11/12/14 06/04/17 Alprazolam [Alprazolam Xr] 0.5 mg PO HS PRN 11/18/15 06/04/17 Furosemide [Lasix] 40 mg PO QAM 11/18/15 05/29/17 Montelukast [Singulair] 10 mg PO DAILY 11/18/15 06/04/17 Potassium Chloride [Klor-Con 10] 10 meq PO DAILY 11/18/15 06/04/17 Prednisone [Rena] 10 mg PO DAILY 11/18/15 05/29/17 Verapamil [Calan Tab] 80 mg PO TID 11/18/15 06/04/17 Arformoterol [Brovana] 15 mcg IH BID 01/27/16 05/29/17 Lubiprostone [Amitiza] 24 mcg PO DAILY 01/27/16 05/29/17 Atenolol [Tenormin] 25 mg PO DAILY 12/19/16 06/04/17 Budesonide 1 inh INH BID 12/19/16 05/29/17 Polyethylene Glycol 3350 [Miralax] 1 cap PO PRN PRN 12/19/16 06/04/17 oxyCODONE [oxyCODONE Immediate 15 mg PO TID 09/01/17 11/05/17 Release Tab] Apixaban [Eliquis] 5 mg PO BID 06/04/17 06/04/17 Clonazepam [Klonopin] 0.5 mg PO BID 06/04/17 06/04/17 Review of Systems - Physician Review All systems were reviewed & negative as marked: Yes - Review of Systems Constitutional: Normal. absent: Fevers Eyes: Normal ENT: Normal Respiratory: SOB. absent: Cough Cardiovascular: Chest Pain Gastrointestinal: Normal. absent: Abdominal Pain, Diarrhea, Nausea, Vomiting Genitourinary Male: Normal. absent: Dysuria, Frequency, Hematuria, Urinary Output Changes Musculoskeletal: Back Pain. absent: Neck Pain Skin: Normal. absent: Rash Neurological: Normal. absent: Headache, Dizziness Endocrine: Normal Hemo/Lymphatic: Normal Psychiatric: Normal Physical Exam Vital Signs Reviewed: Yes Vital Signs Temp Pulse Resp BP Pulse Ox 08/13/17 00:05 66 18 91/63 L 92 L 08/12/17 23:57 69 18 117/70 92 L 08/12/17 22:26 24 08/12/17 22:25 98.4 F 08/12/17 22:05 81 21 144/91 H 95 Temperature: Afebrile Blood Pressure: Normal Pulse: Regular Respiratory Rate: Normal Appearance: Positive for: Well-Appearing, Non-Toxic, Comfortable Pain Distress: None Mental Status: Positive for: Alert and Oriented X 3 - Systems Exam Head: Present: Atraumatic, Normocephalic Pupils: Present: PERRL Extroacular Muscles: Present: EOMI Conjunctiva: Present: Normal Mouth: Present: Moist Mucous Membranes Neck: Present: Normal Range of Motion Respiratory/Chest: Present: Decreased Breath Sounds (Decreased breath sounds bilaterally). No: Respiratory Distress, Accessory Muscle Use Cardiovascular: Present: Regular Rate and Rhythm, Normal S1, S2. No: Murmurs Abdomen: Present: Normal Bowel Sounds. No: Tenderness, Distention, Peritoneal Signs Back: Present: Normal Inspection Upper Extremity: Present: Normal Inspection. No: Cyanosis, Edema Lower Extremity: Present: Normal Inspection. No: Edema Neurological: Present: GCS=15, CN II-XII Intact, Speech Normal Skin: Present: Warm, Dry, Normal Color. No: Rashes Psychiatric: Present: Alert, Oriented x 3, Normal Insight, Normal Concentration Medical Decision Making ED Course and Treatment: 08/12/17 21:54 Impression: 57 year old male complaining of shortness of breath, chest pain, and back pain. Plan: -- EKG -- CXR -- Labs, cardiac enzymes, BNP -- Solu-medrol -- Duoneb -- Reassess and disposition Prior Visits: Notes and results from previous visits were reviewed. On 05/29/2017, pt was seen in the Emergency department for back pain, chest pain, and coughing. Pt was admitted to the hospital for further evaluation. Progress Notes: 08/12/17 22:10 Reviewed EKG, NSR at 74 bpm. Inferior infarct. Non-specific ST/T wave changes. 08/12/17 23:22 Chest X-ray reviewed, shows no acute processes. 08/12/17 23:[address] Cowart, covering for Dr. Bowman, who is aware and agrees with plan. Pt will go to telemetry observation for chest pain under Dr. Bowman's service. - Lab Interpretations Lab Results: 08/12/17 22:20 08/12/17 22:20 Lab Results 08/12/17 22:20: PT 14.7 H, INR 1.28 H, APTT 29.7 08/12/17 22:20: WBC 11.8 H D, RBC 5.24, Hgb 12.5 L D, Hct 40.3 L, MCV 76.9 L D, MCH 23.9 L, MCHC 31.0, RDW 20.0 H, Plt Count 272, MPV 9.8 08/12/17 22:20: Sodium 133, Potassium 4.1, Chloride 93 L, Carbon Dioxide 32, Anion Gap 12, BUN 14, Creatinine 0.7 L, Est GFR ( Amer) > 60, Est GFR ( Non-Af Amer) > 60, Random Glucose 90, Calcium 10.0, Total Bilirubin 0.6, AST 39 , ALT 40, Alkaline Phosphatase 110, Lactate Dehydrogenase 592, Total Creatine Kinase 41, Troponin I < 0.01, NT-Pro-B Natriuret Pep 737 H, Total Protein 7.2, Albumin 4.3, Globulin 2.9, Albumin/Globulin Ratio 1.5 I have reviewed the lab results: Yes - RAD Interpretation Radiology Orders: 08/12/17 21:59 CHEST PORTABLE [RAD] Stat Network Security Consultant: ED Physician - EKG Interpretation Interpreted by ED Physician: Yes Type: 12 lead EKG - Medication Orders Current Medication Orders: Albuterol/Ipratropium (Duoneb 3 Mg/0.5 Mg (3 Ml) Ud) 3 ml IH Q4H PRN PRN Reason: Shortness of Breath Discontinued Medications Albuterol/Ipratropium (Duoneb 3 Mg/0.5 Mg (3 Ml) Ud) 3 ml IH ONCE STA Stop: 08/12/17 21:59 Last Admin: 08/12/17 22:22 Dose: 3 ml Diphenhydramine HCl (Benadryl) 25 mg IVP ONCE ONE Stop: 08/12/17 22:39 Last Admin: 08/12/17 22:40 Dose: 25 mg IVP Administration Document 08/12/17 22:40 YP (Rec: 08/12/17 23:30 YP [id number]) Charges for Administration # of IVP Administrations 1 Hydromorphone HCl (Dilaudid) 2 mg IVP STAT STA Stop: 08/12/17 22:13 Last Admin: 08/12/17 22:22 Dose: 2 mg MAR Pain Assessment Document 08/12/17 22:22 YP (Rec: 08/12/17 22:23 YP [id number]) Pain Reassessment Is this a pain reassessment? No Sleep Is patient sleeping during reassessment? No Presence of Pain Presence of Pain Yes IVP Administration Document 08/12/17 22:22 YP (Rec: 08/12/17 22:23 YP [id number]) Charges for Administration # of IVP Administrations 1 Methylprednisolone (Solu-Medrol) 125 mg IVP ONCE ONE Stop: 08/12/17 21:59 Last Admin: 08/12/17 22:22 Dose: 125 mg IVP Administration Document 08/12/17 22:22 YP (Rec: 08/12/17 22:22 YP [id number]) Charges for Administration # of IVP Administrations 1 - Scribe Statement The provider has reviewed the documentation as recorded by the Scribe Luba Kulkarni All medical record entries made by the Scribe were at my direction and personally dictated by me. I have reviewed the chart and agree that the record accurately reflects my personal performance of the history, physical exam, medical decision making, and the department course for this patient. I have also personally directed, reviewed, and agree with the discharge instructions and disposition. Disposition/Present on Arrival - Present on Arrival Any Indicators Present on Arrival: No History of DVT/PE: No History of Uncontrolled Diabetes: No Urinary Catheter: No History of Decub. Ulcer: No History Surgical Site Infection Following: None - Disposition Have Diagnosis and Disposition been Completed?: Yes Diagnosis: COPD exacerbation, Chest pain Disposition: HOSPITALIZED Disposition Time: 23:56 Patient Plan: Admission Patient Problems: Current Active Problems Problem Status Onset COPD exacerbation Acute Chest pain Acute Condition: STABLE
[2017-08-12] MEDS ORDERED: Albuterol-Ipratrop 3 mg / 0.5 (3 ml) UD IH STA (21:58)
[2017-08-12] MEDS ORDERED: HYDROmorphone 2 mg/ml ISec IVP STA (22:12)
[2017-08-12] MEDS ORDERED: DiphenhydrAMINE 50 mg/ml Inj IVP ONE (22:38)
[2017-08-12 22:49] LABS: HEMOGLOBIN 12.5 g/dL (14.0-18.0); MEAN CELL VOLUME 76.9 fl (80.0-105.0); MEAN CORPUSCULAR HEMOGLOBIN 23.9 pg (25.0-35.0); MEAN PLATELET VOLUME 9.8 fl (7.0-11.0); RBC 5.24 10^6/uL (3.5-6.1); WHITE BLOOD COUNT 11.8 10^3/ul (4.5-11.0)
[2017-08-12 22:57] LABS: ALB/GLOB RATIO 1.5 (1.1-1.8); ALBUMIN 4.3 g/dL (3.0-4.8); ALT/SGPT 40 U/L (7-56); AST/SGOT 39 U/L (17-59); BLOOD UREA NITROGEN 14 mg/dL (7-21); GFR AFRICAN-AMERICAN > 60; GFR NON-AFRICAN AMERICAN > 60
[2017-08-12 23:05] LABS: INR 1.28 (0.93-1.08); PARTIAL THROMBOPLASTIN TIME 29.7 Seconds (25.1-36.5); PROTHROMBIN TIME 14.7 SECONDS (9.4-12.5)
[2017-08-12 23:09] LABS: B-TYPE NATRIURETIC PEPTIDE 737 pg/mL (0-450); TROPONIN I < 0.01 ng/mL
[2017-08-13] MEDS ORDERED: ALPRAZOLAM 0.5 MG PO PRN (00:44)
[2017-08-13] MEDS: Albuterol-Ipratrop 3 mg / 0.5 (3 ml) UD IH PRN (01:28)
[2017-08-13] MEDS ORDERED: HYDROmorphone 0.5 mg/0.5 ml ISec IVP STA (05:35)
--- NOTE | 2017-08-13 08:43 | RAD ---
HISTORY: sob COMPARISON: 06/01/2017 FINDINGS: LUNGS: No active pulmonary disease. PLEURA: No significant pleural effusion identified, no pneumothorax apparent. CARDIOVASCULAR: Normal. OSSEOUS STRUCTURES: No significant abnormalities. VISUALIZED UPPER ABDOMEN: Normal. OTHER FINDINGS: None. IMPRESSION: No active disease.
[2017-08-13] MEDS: oxyCODONE 15 mg Immediate Release Tab PO SCH ×3 (09:02→22:28)
[2017-08-13] MEDS: Potassium Chloride 10 mEq ER Tab PO SCH (11:01)
[2017-08-13] MEDS: LUBIPROSTONE 24 MCG PO SCH (12:24)
[2017-08-13] MEDS: Digoxin 125 mcg (0.125 mg) Tab PO SCH ×2 (14:17→14:31)
[2017-08-13 14:21] VITALS: BMI 28.8
[2017-08-13] MEDS: MethylPREDNISolone 40 mg Vial IVP SCH ×2 (16:02→18:01)
[2017-08-13] MEDS ORDERED: oxyCODONE 15 mg Immediate Release Tab PO PRN (17:04)
[2017-08-13] MEDS: Morphine 2 mg/ml ISec IVP PRN (17:57)
[2017-08-13] MEDS ORDERED: oxyCODONE 15 mg Immediate Release Tab PO SCH (18:15)
[2017-08-13] MEDS: Albuterol-Ipratrop 3 mg / 0.5 (3 ml) UD IH SCH (20:27)
--- NOTE | 2017-08-13 20:37 | HP ---
DATE OF EVALUATION: 08/13/2017 HISTORY OF PRESENT ILLNESS: Mr. Cano is a 57-year-old male, presented to ED with shortness of breath. He has history of hypertension, COPD, paroxysmal atrial fibrillation, and myocardial infarction. He is also complaining of severe back pain. He has chronic back pain. He has history of DVT in the past. Currently, he received nebulizer antibiotics in the ER. Complaining of chills, shortness of breath. No chest pain, no nausea, no vomiting. PAST MEDICAL HISTORY: COPD, CHF, atrial fibrillation, cardiac arrhythmia, hypertension, anemia, history of chronic anemia, history of blood transfusion in the past. PAST SURGICAL HISTORY: Appendectomy, colon surgery, history of BPH. FAMILY HISTORY: Noncontributory. PERSONAL HISTORY: Former smoker. No history of alcohol abuse. ALLERGIES: NO KNOWN DRUG ALLERGIES. MEDICATIONS: Daliresp 500 mcg daily, aspirin 81 mg daily, Xanax 0.5 mg p.o. p.r.n., Lasix 40 mg daily, potassium 10 mEq daily, prednisone 10 mg daily, verapamil 80 mg p.o. t.i.d., Amitiza 24 mcg p.o. daily, atenolol 25 mg daily, Eliquis 5 mg p.o. b.i.d., Klonopin 0.5 mg p.o. b.i.d. REVIEW OF SYSTEMS: As per HPI. Rest of 12-point review of systems reviewed negative. PHYSICAL EXAMINATION: GENERAL: Mild respiratory distress. VITAL SIGNS: Respiratory rate 30 per minute, blood pressure 140/90, pulse ox is 95% on room air, temperature 98.4, heart rate is 130 per minute. HEENT: Normal. NECK: No lymphadenopathy. CHEST: Air entry present and equal bilaterally. No added sounds. CARDIOVASCULAR: S1 and S2 normal. No murmur, no gallop. ABDOMEN: Soft, nontender. No hepatosplenomegaly. Obese. EXTREMITIES: No edema. 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 No focal sensory or motor deficits. SPINE: No focal tenderness. LABORATORY DATA: White count 11.8, hemoglobin 12.5, hematocrit 40.3, platelet count 272. Sodium 133, potassium 4.1, BUN 14, creatinine 0.7, glucose 70. BNP 737. Chest x-ray, no infiltrates. EKG, nonspecific ST-T changes. ASSESSMENT: 1. Chronic obstructive pulmonary disease exacerbation. 2. Congestive heart failure. 3. Coronary artery disease. 4. Back pain. 5. Anemia. 6. Leukocytosis. PLAN: He will be admitted to tele monitoring. DuoNeb q.6 hours p.r.n. Eliquis 5 mg p.o. b.i.d., aspirin 81 mg daily, digoxin 0.125 mg daily, Lasix 40 mg daily, Solu-Medrol 40 mg IV q.6 hours, Singulair 10 mg daily, morphine 2 mg IV q.4 hours p.r.n. for back pain, Xanax 0.5 mg nightly p.r.n. for anxiety, oxycodone for mild to moderate pain at 15 mg q.8 hours, potassium supplementation 10 mEq daily, sotalol 120 mg p.o. q.12 hours. We will continue to monitor the blood count. Cardiology consultation, Dr. Samuel, requested. Pulmonary consultation, Dr. Pineda, requested. Jina Cowart MD MTDRoberto
[2017-08-14] MEDS: oxyCODONE 15 mg Immediate Release Tab PO SCH ×4 (00:41→21:51)
[2017-08-14] MEDS: MethylPREDNISolone 40 mg Vial IVP SCH ×4 (00:44→21:49)
[2017-08-14] MEDS: Albuterol-Ipratrop 3 mg / 0.5 (3 ml) UD IH SCH ×4 (01:46→20:30)
--- NOTE | 2017-08-14 03:13 | CON ---
DATE: 08/13/2017 LOCATION: The patient is in room 275, bed 1. REASON FOR CONSULTATION: Back pain radiating to upper abdominal pain, shortness of breath, history of atrial fibrillation, status post ablation, cardiomyopathy, COPD. HISTORY OF PRESENT ILLNESS: A 57-year-old male who known to have COPD. In June, had an ablation for atrial fibrillation admitting with lower back pain and his lower back pain extend to the upper abdomen, patient had no chest pain. He says when he takes a deep breath it hurts in the back and radiate to the upper abdomen. Therefore he is not taking deep breath and that is causing him marked shortness of breath. He is also very uncomfortable when he lies down or when he walks. Patient said due to back pain he has to sit up. Since ablation, he says he does not have any palpitation. PAST MEDICAL HISTORY: Significant for non-ST segment myocardial infarction in 2013 followed by cardiac catheterization in November 2013 that was essentially normal coronary anatomy and cardiomyopathy possibly secondary to thrombus that went into the coronaries. Later on MUGA scan showed ejection fraction of 54% in October 2013; repeat MUGA in April 2014 showed ejection 50%. Patient had echocardiogram in May 2017 which showed left ventricle size is normal, normal ventricle wall thickness, left ventricle ejection fraction about 50%. Trans-mitral Doppler flow pattern grade I abnormal relaxing pattern, mild pulmonary hypertension with RVSP 49 mmHg. In June 2017, patient had ablation for atrial fibrillation by Dr. Amador, since then he has no palpitation. PERSONAL HISTORY: Used to smoke 1 pack a day, stopped. Denies any drinking. ALLERGIES: PATIENT DENIES ANY ALLERGIES. LIST OF MEDICATIONS AT HOME: The patient was taking Singulair 10 mg p.o. daily, potassium 10 mEq daily, prednisone 10 mg daily, verapamil 80 mg p.o. t.i.d., Brovana 15 mcg IH b.i.d., Amitiza 24 mcg p.o. daily, atenolol 25 mg daily, budesonide 1 inhalation b.i.d., Eliquis 5 mg b.i.d., Klonopin 0.5 b.i.d. PHYSICAL EXAMINATION VITAL SIGNS: Blood pressure 121/89, respirations 18, pulse 99, temperature 97.1. HEENT: Head is normocephalic. Eyes, pupils normal. Conjunctivae normal. Nose and throat normal. NECK: JVP low. Carotids are equal. THORAX: AP diameter is slightly increased. LUNGS: Patient has diminished air entry in the lung. No rales. CARDIOVASCULAR: S1 and S2. ABDOMEN: Soft. Nontender. No organomegaly. EXTREMITIES: No clubbing. No cyanosis. LABORATORY DATA: WBC 11.8, hemoglobin 12.5, hematocrit 40.3, and platelets 272. Sodium 133, potassium 4.1, BUN 14, creatinine 0.7, calcium 10.0. Troponin less than 0.01. NT-pro-B natriuretic peptide 77. Total protein and albumin normal. Chest x-ray clear. EKG showed regular sinus rhythm ____ very small R in lead aVF. DIAGNOSES: Back pain radiating with upper abdominal pain. No chest pain, shortness of breath, chronic obstructive pulmonary disease, nonobstructive coronary artery disease, LV ejection fraction low normal around 50% on the last echo, atrial fibrillation status post ablation, since then patient denies any palpitation PLAN: Patient on Betapace which is sotalol 120 mg p.o q.12 hours, DuoNeb and nebulizer therapy, aspirin 81 daily, Eliquis 5 mg b.i.d., potassium 10 mEq daily, digoxin 0.125 mg p.o. daily, furosemide 40 mg p.o. daily, prednisone 10 mg daily, Singulair 10 mg daily, Solu Medrol 40 mg IV q. 6 hours, Xanax 0.5 mg p.o. q.8 hours. We will monitor with you and we will follow with you. Shaila Resendez MD
[2017-08-14 06:29] LABS: BASO # 0.02 K/mm3 (0.0-2.0); BASO % 0.2 % (0.0-3.0); EOS % 0.1 % (1.5-5.0); GRAN # 7.66 (1.4-6.5); HEMOGLOBIN 12.4 g/dL (14.0-18.0); LYMPH # 0.6 (1.2-3.4); LYMPH % 6.5 % (22.0-35.0); MEAN CORPUSCULAR HEMOGLOBIN 23.8 pg (25.0-35.0); MEAN CORPUSCULAR HGB CONC 31.4 g/dl (31.0-37.0); MEAN PLATELET VOLUME 10.7 fl (7.0-11.0); MONO # 0.4 (0.1-0.6); MONO % 4.2 % (1.0-6.0); RBC 5.2 10^6/uL (3.5-6.1); RED CELL DISTRIBUTION WIDTH 21.5 % (11.5-14.5); WHITE BLOOD COUNT 8.6 10^3/ul (4.5-11.0)
[2017-08-14 06:57] LABS: BLOOD UREA NITROGEN 21 mg/dL (7-21); GFR AFRICAN-AMERICAN > 60; GFR NON-AFRICAN AMERICAN > 60
--- NOTE | 2017-08-14 09:54 | PN ---
DATE: 08/14/2017 PULMONARY NOTE SUBJECTIVE: The patient appears comfortable this morning. He is not short of breath at rest. OBJECTIVE: VITALS: Temperature 98.7, pulse 88, respirations 18, blood pressure 116/59. Oxygen saturation on nasal cannula is 97-98%. HEENT: Normocephalic, atraumatic. No JVD. CARDIOVASCULAR: Systolic ejection murmur at the lower left sternal border. No S3 gallop. LUNGS: Minimal rhonchi. No wheezing. EXTREMITIES: No clubbing, cyanosis, or edema. Calves are nontender to palpation. GI: Abdomen is soft, nontender, and nondistended. Bowel sounds are positive. SKIN: No acute rash. NEUROLOGIC: Limited at the present time. IMPRESSION: 1. Acute back spasms. 2. Advanced chronic obstructive pulmonary disease. 3. Mild bronchospasm. 4. Coronary artery disease. 5. Atrial fibrillation. 6. Chronic anemia. PLAN: The patient appears comfortable this morning. He is not short of breath at rest. On physical exam, there is no significant bronchospasm noted. In addition, there is no significant alveolar-arterial gradient. I will continue the current nebulizer treatments and decrease the intravenous steroids this morning. The patient's main complaint at the present time is his back spasms. He has been in much, much worse bronchospasm in the past. Cardiology evaluation is also noted. Clinical status of the patient is definitely improved - compared to the initial presentation. I will discuss the above with the attending physician. Mane Pineda MD MTDRoberto
[2017-08-14] MEDS: Potassium Chloride 10 mEq ER Tab PO SCH (10:11)
[2017-08-14] MEDS: LUBIPROSTONE 24 MCG PO SCH (10:14)
--- NOTE | 2017-08-14 10:18 | CARD ---
APPROVED REPORT EKG Measurement Heart [id number] <Conclusion> Normal sinus rhythm Cannot rule out Inferior infarct, age undetermined Abnormal ECG
[2017-08-14] MEDS: Digoxin 125 mcg (0.125 mg) Tab PO SCH (13:34)
--- NOTE | 2017-08-14 17:40 | PN ---
DATE: 08/14/2017 REASON FOR CONSULTATION AND FOLLOWUP: Back pain radiating to the abdomen, mild shortness of breath, history of atrial fibrillation, status post ablation, cardiomyopathy, and nonischemic COPD. SUBJECTIVE: The patient denies any chest pain; shortness of breath secondary to back pain, complains of back pain. PHYSICAL EXAMINATION: GENERAL: Not in apparent distress. VITAL SIGNS: As follows: Temperature afebrile, heart rate 88, and blood pressure 116/59. HEENT: PERRLA intact. NECK: Supple. No carotid bruit or thyromegaly. CHEST: Clear to auscultation. HEART: S1 and S2 regular. ABDOMEN: Soft. EXTREMITIES: Clubbing and cyanosis negative. LABORATORY DATA: WBC 8.6, hemoglobin 12.8, hematocrit 39.5, and platelet count 239. Chemistry shows sodium 132, potassium 3.0, chloride 92, CO2 of 32, anion gap of 15, BUN 21, and creatinine 0.7. Troponin is 0.01. IMPRESSION AND PLAN: History of paroxysmal atrial fibrillation, history of radiofrequency ablation, status post converted to normal sinus; last MUGA scan showed an ejection fraction of 54%. Echocardiogram from 2013 shows ejection fraction of 50%, mitral regurgitation, tricuspid regurgitation, right ventricular systolic pressure 49 mmHg. In June, the patient had ablation and admitted with the back pain. Now the patient is in normal sinus. Currently, the patient is off verapamil, off digoxin, off Cardizem. Currently, we will continue Eliquis and sotalol and if remains stable, later on we can discontinue anticoagulation. We will follow with you and we will discontinue Telemetry. Thank you Dr. Cowart for providing us the opportunity in taking care of the patient, Demetrio Cano. Shaila Samuel MD
[2017-08-14] MEDS: Morphine 2 mg/ml ISec IVP PRN (18:48)
--- NOTE | 2017-08-14 22:44 | CP.PCM.PN ---
Subjective - Date & Time of Evaluation Date of Evaluation: 08/14/17 Time of Evaluation: 10:00 - Subjective Subjective: DATE OF EVALUATION: 08/14/2017 HISTORY OF PRESENT ILLNESS: Mr. Cano is a 57-year-old male, presented to ED with shortness of breath. He has history of hypertension, COPD, paroxysmal atrial fibrillation, and myocardial infarction. He is also complaining of severe back pain. He has chronic back pain. He has history of DVT in the past. SOB improved. PAST MEDICAL HISTORY: COPD, CHF, atrial fibrillation, cardiac arrhythmia, hypertension, anemia, history of chronic anemia, history of blood transfusion in the past. PAST SURGICAL HISTORY: Appendectomy, colon surgery, history of BPH. FAMILY HISTORY: Noncontributory. PERSONAL HISTORY: Former smoker. No history of alcohol abuse. ALLERGIES: NO KNOWN DRUG ALLERGIES. MEDICATIONS: Daliresp 500 mcg daily, aspirin 81 mg daily, Xanax 0.5 mg p.o. p.r.n., Lasix 40 mg daily, potassium 10 mEq daily, prednisone 10 mg daily, verapamil 80 mg p.o. t.i.d., Amitiza 24 mcg p.o. daily, atenolol 25 mg daily, Eliquis 5 mg p.o. b.i.d., Klonopin 0.5 mg p.o. b.i.d. REVIEW OF SYSTEMS: As per HPI. Rest of 12-point review of systems reviewed negative. PHYSICAL EXAMINATION: GENERAL: Mild respiratory distress. VITAL SIGNS: reviewed. HEENT: Normal. NECK: No lymphadenopathy. CHEST: Air entry present and equal bilaterally. No added sounds. CARDIOVASCULAR: S1 and S2 normal. No murmur, no gallop. ABDOMEN: Soft, nontender. No hepatosplenomegaly. Obese. EXTREMITIES: No edema. DATA SYSTEMS ANALYST: Alert and oriented x3. No focal sensory or motor deficits. SPINE: No focal tenderness. LABORATORY DATA: reviewed. ASSESSMENT: 1. Chronic obstructive pulmonary disease exacerbation. 2. Congestive heart failure. 3. Coronary artery disease. 4. Back pain. 5. Anemia. 6. Leukocytosis. PLAN: Continue DuoNeb q.6 hours p.r.n. Eliquis 5 mg p.o. b.i.d., aspirin 81 mg daily, digoxin 0.125 mg daily, Lasix 40 mg daily, Solu-Medrol 40 mg IV q.6 hours, Singulair 10 mg daily, morphine 2 mg IV q.4 hours p.r.n. for back pain, Xanax 0.5 mg nightly p.r.n. for anxiety, oxycodone for mild to moderate pain at 15 mg q.8 hours, potassium supplementation 10 mEq daily, sotalol 120 mg p.o. q.12 hours. We will continue to monitor the blood count. Cardiology consultation, Dr. Samuel, appreciated. Pulmonary consultation, Dr. Pineda, appreciated. PSA, SPEP immunofixation for evaluation of back pain. Jina Cowart MD Objective - Vital Signs/Intake and Output Vital Signs (last 24 hours): Temp Pulse Resp BP Pulse Ox 98.8 F 92 H 18 110/71 97 08/14/17 17:47 08/14/17 21:49 08/14/17 17:47 08/14/17 21:49 08/14/17 06:00 Intake and Output: 08/14/17 08/15/17 18:59 06:59 Intake Total 900 Output Total 450 Balance 450 - Medications Medications: Current Medications Albuterol/Ipratropium (Duoneb 3 Mg/0.5 Mg (3 Ml) Ud) 3 ml IH Q4H PRN PRN Reason: Shortness of Breath Last Admin: 08/13/17 01:28 Dose: 3 ml Albuterol/Ipratropium (Duoneb 3 Mg/0.5 Mg (3 Ml) Ud) 3 ml IH [id number] [facility] Last Admin: 08/14/17 20:30 Dose: 3 ml Alprazolam (Xanax) 0.5 mg PO Q8 ERNESTINA PRN Reason: Protocol Last Admin: 08/14/17 21:51 Dose: 0.5 mg Apixaban (Eliquis) 5 mg PO BID [facility] PRN Reason: Protocol Last Admin: 08/14/17 18:48 Dose: 5 mg Aspirin (Ecotrin) 81 mg PO DAILY [facility] Last Admin: 08/14/17 10:12 Dose: 81 mg Digoxin (Lanoxin) 0.125 mg PO 1400 [facility] Last Admin: 08/14/17 13:34 Dose: Not Given Furosemide (Lasix) 40 mg PO QAM [facility] Last Admin: 08/14/17 10:12 Dose: 40 mg Methylprednisolone (Solu-Medrol) 40 mg IVP Q12 [facility] Last Admin: 08/14/17 21:49 Dose: 40 mg Morphine Sulfate (Morphine) 2 mg IVP Q4H PRN PRN Reason: Pain, severe (8-10) Last Admin: 08/14/17 18:48 Dose: 2 mg Alprazolam [ Alprazolam Xr] 0.5 Mg (Home Med) 0.5 mg PO HS PRN PRN Reason: Anxiety Lubiprostone [ Amitiza] 24 Mcg ( Home Med) 24 mcg PO DAILY [facility] Last Admin: 08/14/17 10:14 Dose: Not Given Oxycodone HCl (Oxycodone Immediate Release Tab) 15 mg PO Q8H [facility] Last Admin: 08/14/17 21:51 Dose: 15 mg Potassium Chloride (Klor-Con 10) 10 meq PO DAILY [facility] Last Admin: 08/14/17 10:11 Dose: 10 meq Roflumilast (Daliresp) 500 mcg PO DAILY [facility] Last Admin: 08/14/17 10:12 Dose: 500 mcg Sotalol HCl (Betapace) 120 mg PO Q12 [facility] Last Admin: 08/14/17 21:49 Dose: 120 mg - Labs Labs: 08/14/17 05:20 08/14/17 05:20 PT 14.7 SECONDS (9.4-12.5) H 08/12/17 22:20 INR 1.28 (0.93-1.08) H 08/12/17 22:20 APTT 29.7 Seconds (25.1-36.5) 08/12/17 22:20
[2017-08-15] MEDS: Albuterol-Ipratrop 3 mg / 0.5 (3 ml) UD IH SCH ×4 (01:15→23:03)
[2017-08-15] MEDS: Morphine 2 mg/ml ISec IVP PRN ×2 (01:21→12:29)
[2017-08-15] MEDS ORDERED: MethylPREDNISolone 40 mg Vial IVP STA (01:37)
[2017-08-15] MEDS ORDERED: Albuterol-Ipratrop 3 mg / 0.5 (3 ml) UD IH STA (01:38)
[2017-08-15] MEDS: oxyCODONE 15 mg Immediate Release Tab PO SCH ×3 (05:37→21:30)
[2017-08-15 06:42] LABS: GRAN # 11.31 (1.4-6.5); GRAN % 94.2 % (50.0-68.0); LYMPH # 0.4 (1.2-3.4); LYMPH % 3.7 % (22.0-35.0); MEAN CELL VOLUME 77.2 fl (80.0-105.0); MEAN CORPUSCULAR HEMOGLOBIN 23.8 pg (25.0-35.0); MEAN CORPUSCULAR HGB CONC 30.8 g/dl (31.0-37.0); MONO # 0.3 (0.1-0.6); MONO % 2.1 % (1.0-6.0); PLATELET COUNT 189 10^3/uL (120.0-450.0); RBC 5.04 10^6/uL (3.5-6.1); RED CELL DISTRIBUTION WIDTH 20.1 % (11.5-14.5)
[2017-08-15 07:01] LABS: ALB/GLOB RATIO 1.4 (1.1-1.8); ALBUMIN 3.9 g/dL (3.0-4.8); ALT/SGPT 41 U/L (7-56); AST/SGOT 24 U/L (17-59); BLOOD UREA NITROGEN 20 mg/dL (7-21); CALCIUM 9.7 mg/dL (8.4-10.5); GFR AFRICAN-AMERICAN > 60; GFR NON-AFRICAN AMERICAN > 60; HDL CHOLESTEROL 49 mg/dL (29-60); MAGNESIUM 2.2 mg/dL (1.7-2.2)
[2017-08-15 07:08] LABS: LDL CHOLESTEROL 68 mg/dL (0-129)
--- NOTE | 2017-08-15 07:11 | PN ---
DATE: 08/15/2017 PULMONARY NOTE SUBJECTIVE: The patient appears comfortable this morning. He is not short of breath at rest. PHYSICAL EXAMINATION: VITAL SIGNS: Temperature is 98.0, pulse 98, respirations 18/20, blood pressure 114/87. Oxygen saturation on a non-rebreather is 99%. HEENT: Normocephalic, atraumatic. No JVD. CARDIOVASCULAR: Systolic ejection murmur at the lower left sternal border. No S3 gallop. LUNGS: Minimal/less rhonchi. Few wheezes are also present. EXTREMITIES: No clubbing, cyanosis or edema. Calves are nontender to palpation. GI: Abdomen is soft, nontender and nondistended. Bowel sounds are positive. SKIN: No acute rash. NEUROLOGIC: Exam limited at the present time. IMPRESSION: 1. Acute back spasms. 2. Advanced chronic obstructive pulmonary disease. 3. Mild bronchospasm. 4. Coronary artery disease. 5. Atrial fibrillation. 6. Chronic anemia. PLAN: The patient appears comfortable this morning. He is not short of breath at rest. I did discuss the case with the night nurse at length. The night nurse stated that the patient did experience oxygen desaturation during her shift. The patient was then placed on a non-rebreather mask. At the time of my examination, the patient is quite comfortable. He does state to feeling much better at the time of my examination. I will change him back to nasal cannula. On physical exam, mild bronchospasm remains. I will continue the current nebulizer treatments and intravenous steroids (decreased yesterday) for now. Clinical status of the patient is certainly improved - compared to the initial presentation. However, again, the overall status/prognosis for this patient does remain guarded - as he does continue to have advanced lung disease. I will discuss the above with the attending physician. Mane Pineda MD MTDD
[2017-08-15 08:17] LABS: LYMPHOCYTE 5 % (22.0-35.0); MONOCYTE 5 % (1.0-6.0); NEUTROPHIL 90 % (50.0-70.0); PLATELET ESTIMATE NORMAL (NORMAL)
[2017-08-15] MEDS: Potassium Chloride 10 mEq ER Tab PO SCH (09:20)
[2017-08-15] MEDS: MethylPREDNISolone 40 mg Vial IVP SCH ×2 (09:20→21:24)
[2017-08-15] MEDS: LUBIPROSTONE 24 MCG PO SCH (10:00)
[2017-08-15] MEDS ORDERED: Potassium Chloride 20 mEq ER Tab PO ONE (11:37)
--- NOTE | 2017-08-15 12:52 | CON ---
DATE: 08/13/2017 PULMONARY CONSULTATION REASON FOR CONSULTATION: The patient was seen and examined in the Emergency Room. He is awaiting admission to medical bed, however, medical beds are not available. We will wait for discharges. The patient is known to our services. He is being followed by Dr. Love in office. HISTORY OF PRESENT ILLNESS: The patient has past medical history of COPD, paroxysmal atrial fibrillation, coronary artery disease, congestive heart failure, and mild hypertension. He was complaining of shortness of breath that started according to him few hours prior to admission. He also reported associated chest pain and back pain. Denied any fever, chills, nausea, vomiting, or diarrhea. His private physician is Dr. Bowman and planishing hammer operator is Dr. Love. PAST SURGICAL HISTORY: History of colonic polyps that were removed. ALLERGIES: NO KNOWN DRUG ALLERGIES. HOME MEDICATIONS: Include Singulair, prednisone, Brovana, budesonide, and Klonopin. FAMILY HISTORY: Negative for inherited diseases. SOCIAL HISTORY: He is a milligan smoker. Nondrinker and does not use illicit drugs. REVIEW OF SYSTEMS: Conducted by reviewing all sources. PULMONARY: See history of present illness. CARDIAC: History of cardiac arrhythmia, history of congestive heart failure, history of hypertension. NEUROLOGIC: No complaints. GENITOURINARY: The patient has difficulty passing urine, especially when in distress. The rest of the systems were reviewed and found to be negative. PHYSICAL EXAMINATION: GENERAL: He is awake, alert, in no acute distress. HEAD, EAR, NOSE AND THROAT: Within normal limits. NECK: Supple with no jugular vein distention. CHEST: Symmetrical. HEART: S1 and S2. No S3, regular. LUNGS: Diminished breath sounds bilaterally. Scattered bilateral rhonchi. No wheezing. ABDOMEN: Soft and nontender. No organomegaly. GENITOURINARY: No costovertebral angle tenderness. EXTREMITIES: 1+ pedal edema. NEUROLOGIC: No focal deficits. SKIN: Without cyanosis or skin rashes. IMAGING STUDIES: Chest x-ray shows mild hyperinflation with no acute infiltrates. EKG, normal sinus rhythm, nonspecific ST-T wave changes. LABORATORY DATA: WBC is slightly elevated at 11.8, hemoglobin is slightly reduced at 12.5, and platelets 272,000. Electrolytes are normal. Kidney functions are normal. Pro-BNP is slightly elevated at 737. ASSESSMENT AND PLAN: Exacerbation of chronic obstructive pulmonary disease, chest pain, which will be further evaluated. We will treat these exacerbation of chronic obstructive pulmonary disease with bronchodilator. I now have chest x-ray that I am able to review myself and this shows no cardiomegaly. There is minor atelectatic changes at the right middle lobe. The diaphragms are elevated bilaterally. This is not a good inspiratory fill, so it should be repeated in 24 hours, but does not show acute infiltrates. So he will be treated and evaluated chest pain and will be treated for exacerbation of chronic obstructive pulmonary disease. Jp Lacy MD
[2017-08-15] MEDS: Digoxin 125 mcg (0.125 mg) Tab PO SCH (14:25)
--- NOTE | 2017-08-15 15:53 | PN ---
DATE: 08/15/2017 REASON FOR CONSULTATION: Backache radiating to the abdomen and chest, chronic shortness of breath; atrial fibrillation, status post radiofrequency ablation, cardiomyopathy, mild nonischemic, chronic obstructive pulmonary disease. SUBJECTIVE: complains of back pain that radiates to the front of the abdomen and chest. OBJECTIVE: GENERAL: Not in apparent distress, sits comfortably in bed, but unable to move because of chest pain. VITAL SIGNS: Temperature afebrile, heart rate 90, blood pressure 114/87. HEENT: PERRLA. Extraocular muscles are intact. NECK: Supple. No carotid bruit or thyromegaly. CHEST: Clear to auscultation. HEART: S1 and S2, regular. ABDOMEN: Soft. EXTREMITIES: Clubbing and cyanosis negative. LABORATORY DATA: Blood workup as follows: WBC 12, hemoglobin 12, hematocrit 38.9, platelet counts 189. Chemistry shows sodium of 136, potassium 3.8, chloride 95, carbon dioxide 34, anion gap of 15, BUN 30, creatinine 0.7. IMPRESSION: Back pain, history of nonobstructive coronary artery disease, nonischemic cardiomyopathy, paroxysmal atrial fibrillation, status post radiofrequency ablation, converted to normal sinus, last MUGA scan showed ejection fraction of 54%. Currently, the patient is off verapamil, off digoxin, and off Cardizem. On Eliquis and sotalol. Being followed by Dr. Amador for arrhythmia. If the patient remains stable, we will discontinue long-term anticoagulation. The patient needs to be evaluated for back pain. We will supplement potassium. Thank you Dr. Cowart for providing us the opportunity in taking care of the patient, Mr. Cano. We will supplement potassium. Shaila Samuel MD
[2017-08-15] MEDS: Albuterol-Ipratrop 3 mg / 0.5 (3 ml) UD IH PRN (17:59)
--- NOTE | 2017-08-15 22:20 | CP.PCM.PN ---
Subjective - Date & Time of Evaluation Date of Evaluation: 08/15/17 Time of Evaluation: 09:00 - Subjective Subjective: Shortness of breath improved. Complaining of back pain. On IV steroids. No fever. No chest pain. BP controlled on current meds. Objective - Vital Signs/Intake and Output Vital Signs (last 24 hours): Temp Pulse Resp BP Pulse Ox 98.1 F 89 20 120/69 95 08/15/17 17:32 08/15/17 21:40 08/15/17 20:00 08/15/17 21:20 08/15/17 20:00 - Medications Medications: Current Medications Albuterol/Ipratropium (Duoneb 3 Mg/0.5 Mg (3 Ml) Ud) 3 ml IH [id number] [facility] Last Admin: 08/15/17 13:13 Dose: 3 ml Alprazolam (Xanax) 0.5 mg PO Q8 ENRESTINA PRN Reason: Protocol Last Admin: 08/15/17 21:20 Dose: 0.5 mg Apixaban (Eliquis) 5 mg PO BID [facility] PRN Reason: Protocol Last Admin: 08/15/17 18:03 Dose: 5 mg Aspirin (Ecotrin) 81 mg PO DAILY [facility] Last Admin: 08/15/17 09:23 Dose: 81 mg Digoxin (Lanoxin) 0.125 mg PO 1400 [facility] Last Admin: 08/15/17 14:25 Dose: Not Given Furosemide (Lasix) 40 mg PO QAM [facility] Last Admin: 08/15/17 09:20 Dose: 40 mg Methylprednisolone (Solu-Medrol) 40 mg IVP Q12 [facility] Last Admin: 08/15/17 21:24 Dose: 40 mg Morphine Sulfate (Morphine) 2 mg IVP Q4H PRN PRN Reason: Pain, severe (8-10) Last Admin: 08/15/17 12:29 Dose: 2 mg Alprazolam [ Alprazolam Xr] 0.5 Mg (Home Med) 0.5 mg PO HS PRN PRN Reason: Anxiety Lubiprostone [ Amitiza] 24 Mcg ( Home Med) 24 mcg PO DAILY [facility] Last Admin: 08/15/17 10:00 Dose: Not Given Oxycodone HCl (Oxycodone Immediate Release Tab) 15 mg PO Q8H [facility] Last Admin: 01/16/18 21:30 Dose: 15 mg Potassium Chloride (Klor-Con 10) 10 meq PO DAILY [facility] Last Admin: 08/15/17 09:20 Dose: 10 meq Roflumilast (Daliresp) 500 mcg PO DAILY [facility] Last Admin: 08/15/17 09:21 Dose: 500 mcg Sotalol HCl (Betapace) 120 mg PO Q12 [facility] Last Admin: 08/15/17 21:20 Dose: 120 mg - Labs Labs: 08/15/17 05:30 08/15/17 05:30 PT 14.7 SECONDS (9.4-12.5) H 08/12/17 22:20 INR 1.28 (0.93-1.08) H 08/12/17 22:20 APTT 29.7 Seconds (25.1-36.5) 08/12/17 22:20 - Constitutional Appears: No Acute Distress - Head Exam Head Exam: ATRAUMATIC, NORMAL INSPECTION, NORMOCEPHALIC - Eye Exam Eye Exam: Normal appearance - ENT Exam ENT Exam: Mucous Membranes Moist - Neck Exam Neck Exam: Normal Inspection - Respiratory Exam Respiratory Exam: Clear to Ausculation Bilateral, NORMAL BREATHING PATTERN - Cardiovascular Exam Cardiovascular Exam: REGULAR RHYTHM, +S1, +S2 - GI/Abdominal Exam GI & Abdominal Exam: Soft, Normal Bowel Sounds - Extremities Exam Extremities Exam: Normal Inspection - Back Exam Back Exam: NORMAL INSPECTION - Neurological Exam Neurological Exam: Alert, CN II-XII Intact, Normal Gait, Oriented x3 - Skin Skin Exam: Normal Color Assessment and Plan - Assessment and Plan (Free Text) Assessment: ASSESSMENT: 1. Chronic obstructive pulmonary disease exacerbation. 2. Congestive heart failure. 3. Coronary artery disease. 4. Back pain. 5. Anemia. 6. Leukocytosis. 7. H/O DVT PLAN: Continue DuoNeb q.6 hours p.r.n. On Eliquis 5 mg p.o. b.i.d., aspirin 81 mg daily, digoxin 0.125 mg daily, Lasix 40 mg daily, Solu-Medrol 40 mg IV q.6 hours, Singulair 10 mg daily, morphine 2 mg IV q.4 hours p.r.n. for back pain, Xanax 0.5 mg nightly p.r.n. for anxiety, potassium supplementation 10 mEq daily, sotalol 120 mg p.o. q.12 hours. We will continue to monitor the blood count. Cardiology consultation, Dr. Samuel, appreciated. Pulmonary consultation, Dr. Pineda, appreciated. PSA, SPEP immunofixation for evaluation of back pain. Oxycodone 10 mg Q 4 hr prn for back pain. He has been treated in pain clinic. Jina Cowart MD
[2017-08-16] MEDS: Albuterol-Ipratrop 3 mg / 0.5 (3 ml) UD IH SCH ×4 (03:36→19:26)
[2017-08-16] MEDS: oxyCODONE 15 mg Immediate Release Tab PO SCH (05:39)
[2017-08-16] MEDS ORDERED: Albuterol-Ipratrop 3 mg / 0.5 (3 ml) UD IH STA (05:46)
[2017-08-16 06:13] LABS: ARTERIAL BLOOD GAS HCO3 34.5 mmol/L (21-28); ARTERIAL BLOOD GAS HEMOGLOBIN 11.7 g/dL (11.7-17.4); ARTERIAL BLOOD GAS O2 CAPACITY 16.2 mL/dl (16-24); ARTERIAL BLOOD GAS O2 SAT 86.6 % (95-98); ARTERIAL BLOOD GAS PCO2 52 mm/Hg (35-45); ARTERIAL BLOOD GAS PH 7.43 (7.35-7.45); ARTERIAL BLOOD GAS TCO2 36.1 mmol.L (22-28)
[2017-08-16 06:43] LABS: HEMOGLOBIN 12.7 g/dL (14.0-18.0); MEAN CELL VOLUME 78.4 fl (80.0-105.0); MEAN CORPUSCULAR HEMOGLOBIN 24.2 pg (25.0-35.0); MEAN CORPUSCULAR HGB CONC 30.9 g/dl (31.0-37.0); MEAN PLATELET VOLUME 10.1 fl (7.0-11.0); RBC 5.24 10^6/uL (3.5-6.1); WHITE BLOOD COUNT 14.1 10^3/ul (4.5-11.0)
[2017-08-16 06:55] LABS: BLOOD UREA NITROGEN 23 mg/dL (7-21); CALCIUM 9.6 mg/dL (8.4-10.5); GFR AFRICAN-AMERICAN > 60; GFR NON-AFRICAN AMERICAN > 60; MAGNESIUM 2.5 mg/dL (1.7-2.2)
[2017-08-16 07:03] LABS: ARTERIAL BLOOD GAS HCO3 32.7 mmol/L (21-28); ARTERIAL BLOOD GAS HEMOGLOBIN 11.8 g/dL (11.7-17.4); ARTERIAL BLOOD GAS O2 CAPACITY 16.2 mL/dl (16-24); ARTERIAL BLOOD GAS O2 CONTENT 14.7 ML/dl (15-23); ARTERIAL BLOOD GAS O2 SAT 90.5 % (95-98); ARTERIAL BLOOD GAS PCO2 46 mm/Hg (35-45); ARTERIAL BLOOD GAS PH 7.46 (7.35-7.45); ARTERIAL BLOOD GAS TCO2 34.1 mmol.L (22-28)
[2017-08-16 07:07] LABS: B-TYPE NATRIURETIC PEPTIDE 287 pg/mL (0-450); TROPONIN I < 0.01 ng/mL
--- NOTE | 2017-08-16 07:38 | CP.PCM.PN ---
Subjective - Date & Time of Evaluation Date of Evaluation: 08/16/17 Time of Evaluation: 05:50 - Subjective Subjective: Pt seen stat for his c/o SOB and drop in O2 sat to 82% on 4 litres per min. Pt has history of Copd ,has been on oxycodone and Xanax around the clock Denies c/o chest pain,nausea,vomiting,diaphoresis or any other complaints. O2 sat is 82% on 4LO2/min but other Vital signs are stable Objective - Vital Signs/Intake and Output Vital Signs (last 24 hours): Temp Pulse Resp BP Pulse Ox 98.1 F 86 20 127/90 90 L 08/16/17 06:00 08/16/17 06:00 08/16/17 06:00 08/16/17 06:00 08/16/17 06:00 Intake and Output: 08/16/17 08/16/17 06:59 18:59 Intake Total 120 Output Total 700 Balance -580 - Medications Medications: Current Medications Albuterol/Ipratropium (Duoneb 3 Mg/0.5 Mg (3 Ml) Ud) 3 ml [facility] [id number] Last Admin: 08/16/17 03:36 Dose: 3 ml Alprazolam (Xanax) 0.5 mg PO Q8 ERNESTINA PRN Reason: Protocol Last Admin: 08/16/17 05:39 Dose: 0.5 mg Apixaban (Eliquis) 5 mg PO BID ERNESTINA PRN Reason: Protocol Last Admin: 08/15/17 18:03 Dose: 5 mg Aspirin (Ecotrin) 81 mg PO DAILY [facility] Last Admin: 08/15/17 09:23 Dose: 81 mg Digoxin (Lanoxin) 0.125 mg PO 1400 [facility] Last Admin: 08/15/17 14:25 Dose: Not Given Furosemide (Lasix) 40 mg PO QAM [facility] Last Admin: 08/15/17 09:20 Dose: 40 mg Methylprednisolone (Solu-Medrol) 40 mg IVP Q6 ERNESTINA Morphine Sulfate (Morphine) 2 mg IVP Q4H PRN PRN Reason: Pain, severe (8-10) Last Admin: 08/15/17 12:29 Dose: 2 mg Alprazolam [ Alprazolam Xr] 0.5 Mg (Home Med) 0.5 mg PO HS PRN PRN Reason: Anxiety Lubiprostone [ Amitiza] 24 Mcg ( Home Med) 24 mcg PO DAILY [facility] Last Admin: 08/15/17 10:00 Dose: Not Given Oxycodone HCl (Oxycodone Immediate Release Tab) 15 mg PO Q8H [facility] Last Admin: 08/16/17 05:39 Dose: 15 mg Potassium Chloride (Klor-Con 10) 10 meq PO DAILY [facility] Last Admin: 08/15/17 09:20 Dose: 10 meq Roflumilast (Daliresp) 500 mcg PO DAILY [facility] Last Admin: 08/15/17 09:21 Dose: 500 mcg Sotalol HCl (Betapace) 120 mg PO Q12 [facility] Last Admin: 08/15/17 21:20 Dose: 120 mg - Labs Labs: 08/16/17 06:15 08/16/17 06:15 PT 14.7 SECONDS (9.4-12.5) H 08/12/17 22:20 INR 1.28 (0.93-1.08) H 08/12/17 22:20 APTT 29.7 Seconds (25.1-36.5) 08/12/17 22:20 - Constitutional Appears: In Acute Distress (due to SOB) - Head Exam Head Exam: ATRAUMATIC, NORMAL INSPECTION, NORMOCEPHALIC - Eye Exam Eye Exam: PERRL - ENT Exam ENT Exam: Mucous Membranes Moist - Neck Exam Neck Exam: Normal Inspection - Respiratory Exam Respiratory Exam: Accessory Muscle Use, Decreased Breath Sounds, Wheezes, Respiratory Distress - Cardiovascular Exam Cardiovascular Exam: REGULAR RHYTHM - GI/Abdominal Exam GI & Abdominal Exam: Soft, Normal Bowel Sounds. absent: Tenderness - Extremities Exam Extremities Exam: Normal Inspection. absent: Calf Tenderness - Back Exam Back Exam: NORMAL INSPECTION - Neurological Exam Neurological Exam: Alert, Awake, Oriented x3 - Psychiatric Exam Psychiatric exam: Normal Affect - Skin Skin Exam: Dry, Warm Assessment and Plan - Assessment and Plan (Free Text) Assessment: Exacerbation of COPD Plan: Paient was given Duoneb Rx stat,followed by Solumedrol 125 mg iv push EKG ,CXray, ABGs,.Troponins,CBC,BMP and BNP, ordered stat. Results of ABG discussed with Dr Pineda.Solumedrol 40 mg ivp ordered q 6h.
--- NOTE | 2017-08-16 08:51 | RAD ---
HISTORY: SOB COMPARISON: 08/12/2017 FINDINGS: LUNGS: No active pulmonary disease. PLEURA: No significant pleural effusion identified, no pneumothorax apparent. CARDIOVASCULAR: The heart is normal in size. Mild aortic tortuosity OSSEOUS STRUCTURES: No significant abnormalities. VISUALIZED UPPER ABDOMEN: Normal. OTHER FINDINGS: None. IMPRESSION: No active disease.
--- NOTE | 2017-08-16 10:02 | CARD ---
APPROVED REPORT EKG Measurement Heart [id number] <Conclusion> Normal sinus rhythm Cannot rule out Inferior infarct, age undetermined Abnormal ECG
[2017-08-16] MEDS: Potassium Chloride 10 mEq ER Tab PO SCH (11:17)
[2017-08-16] MEDS: MethylPREDNISolone 40 mg Vial IVP SCH ×2 (11:19→17:25)
[2017-08-16] MEDS: POLYETHYLENE GLYCOL 3350 17 GM/Dose PACKET PO SCH ×2 (11:19→17:24)
[2017-08-16] MEDS: LUBIPROSTONE 24 MCG PO SCH (11:20)
[2017-08-16] MEDS: Morphine 2 mg/ml ISec IVP PRN (11:40)
--- NOTE | 2017-08-16 11:56 | PN ---
DATE: 08/16/2017 SUBJECTIVE: The patient appears comfortable at the present time. He is mildly short of breath, but in no acute distress. PHYSICAL EXAMINATION: VITAL SIGNS: Temperature is 98.1, pulse 81, respirations 20/22, blood pressure 127/90. Oxygen saturation on VentiMask is 90%. HEENT: Normocephalic and atraumatic. No JVD. CARDIOVASCULAR: Systolic ejection murmur at the lower left sternal border. No S3 gallop. LUNGS: Increased rhonchi and wheezing bilaterally. EXTREMITIES: No clubbing, cyanosis or edema. Calves are nontender to palpation. GASTROINTESTINAL: Abdomen is soft, nontender and nondistended. Bowel sounds are positive. SKIN: No acute rash. NEUROLOGIC: Exam limited at the present time. PERTINENT LABORATORY DATA: Chest x-ray was repeated today and reviewed. The chest x-ray is not significantly changed from the previous film. Arterial blood gas was also done on 50% VentiMask. Results are: A pH of 7.46, pCO2 of 46, and pO2 of 55. Oxygen saturation on the arterial blood gas is 91%. IMPRESSION: 1. Acute back spasms. 2. Advanced chronic obstructive pulmonary disease. 3. Increased bronchospasm. 4. Coronary artery disease. 5. Atrial fibrillation. 6. Chronic anemia. PLAN: The patient appears comfortable at the time of my examination. He is mildly short of breath, but in no acute distress. I did discuss the case with the night nurse at length. I have also discussed the case with Dr. Collazo (house physician). Apparently, upon awakening this morning, the patient experienced worsening shortness of breath. He was also noted to be audibly wheezing. I did review the chest x-ray as above. The chest x-ray has not significantly changed from the previous film. I have also reviewed the arterial blood gas. The arterial blood gas does show some CO2 retention, but with normal pH. There is an increase in the alveolar-arterial gradient. I will continue with the VentiMask for now. On physical exam, there is increased bronchospasm noted. The steroids have been increased. I will continue with the nebulizer treatments. One of the major problems in this case is the patient's insistence on frequent pain medications and narcotics. This is certainly a precarious situation, given his advanced chronic obstructive pulmonary disease. The overall status for this patient does remain guarded. I will discuss the above with the attending physician later this morning. Mane Pineda MD MTDRoberto
[2017-08-16] MEDS: oxyCODONE 15 mg Immediate Release Tab PO PRN ×3 (14:46→23:23)
[2017-08-16] MEDS: Digoxin 125 mcg (0.125 mg) Tab PO SCH ×2 (14:47→14:54)
[2017-08-16 14:54] VITALS: PULSE 80
--- NOTE | 2017-08-16 16:02 | PN ---
DATE: 08/16/2017 REASON FOR CONSULTATION AND FOLLOWUP: Back pain radiating to the abdomen and chest, chronic atrial fibrillation, status post radiofrequency ablation, now the patient in normal sinus, nonischemic cardiomyopathy, COPD, obesity. SUBJECTIVE: The patient denies any chest pain, shortness of breath or any palpitations. OBJECTIVE: GENERAL: Not in apparent distress. VITAL SIGNS: Temperature afebrile, heart rate 81, blood pressure 127/90. HEENT: PERRLA, extraocular muscles intact. NECK: Supple. No carotid bruits or thyromegaly. CHEST: Cleat to auscultation. HEART: S1 and S2 regular. ABDOMEN: Soft. LABORATORY DATA: Blood workup as follows; WBC , hemoglobin , hematocrit 41.1, platelet 270. Chemistry shows sodium 135, potassium 4.3, chloride 94, carbon dioxide 20, anion gap of 17, BUN 23, creatinine 0.7. IMPRESSION: 1. Back pain. 2. Nonobstructive coronary artery disease. 3. Nonischemic cardiomyopathy. 4. Paroxysmal atrial fibrillation. 5. Status post radiofrequency ablation converted to normal sinus. Last MUGA scan shows ejection fraction 54%. Currently, the patient is off verapamil, off digoxin, off Cardizem; on Eliquis and sotalol. PLAN: Followup upon discharge with Dr. Amador. CVS status is stable. DC telemetry. The patient is complaining it is difficult to pass urine because of the backache. Continue p.r.n. Live catheter. We will follow with you. CVS status is stable. The patient okay to be discharged when medically stable. Shaila Samuel MD
--- NOTE | 2017-08-16 23:21 | PN ---
DATE: 08/16/2017 SUBJECTIVE: He is comfortable in bed in no acute distress. Shortness of breath is improved. He has episodes of back pain and oxygen desaturation. He is currently on IV steroids and IV antibiotics. Chest x-ray; stat ordered today, no change from previous one. No infiltrate in the lung. He is asking for more frequent pain meds for the back pain. REVIEW OF SYSTEMS: As per HPI. Rest of 12-point review of systems reviewed and negative. PHYSICAL EXAMINATION GENERAL: Mild respiratory distress. VITAL SIGNS: Blood pressure is 120/69, heart rate is 89 per minute and oxygen saturation 95% on oxygen by nasal cannula. HEENT: Pallor positive. NECK: No lymphadenopathy. CHEST: Air entry present and equal bilateral. Crepitations at the bases. Occasional rhonchi. CARDIOVASCULAR: S1 and S2 normal. No murmur. No gallop. ABDOMEN: Obese and nontender. EXTREMITIES: No edema. CENTRAL NERVOUS SYSTEM: Alert and oriented x3. No focal, sensory and motor deficits. SKIN: No petechiae. No rash. LABORATORY DATA: White count 14, hemoglobin 12.7, hematocrit 41.1 and platelet count 270. Sodium 145, potassium 4.3, calcium 9.6, phosphorus 2.5, creatinine 0.7 and GFR more than 60. MEDICATIONS: DuoNeb q.6 hours p.r.n., Xanax 0.5 mg q.4 hours p.r.n., Eliquis 5 mg p.o. b.i.d., aspirin 81 mg daily, digoxin 0.125 mg daily, Colace 100 mg p.o. b.i.d., Lasix 40 mg in the morning, Solu-Medrol 40 q.6 hours, Xanax 0.5 mg at bedtime, potassium 10 mEq daily and sotalol 120 mg p.o. q.12 hours. ASSESSMENT: Chronic obstructive pulmonary disease acute exacerbation, congestive heart failure, leukocytosis, back pain, paroxysmal atrial fibrillation and nonischemic cardiomyopathy. PLAN: Shortness of breath has improved. Heart rate controlled on current medications. Cardiology Dr. Samuel following. Ejection fraction recent was 54% by MUGA scan. Pulmonary Dr. Pineda following. Leukocytosis likely related to steroid use, he is on q.6 hours Solu-Medrol. Hemoglobin and hematocrit has been stable. We will continue MiraLax. Oxycodone will change to q.4 hours p.r.n. We will reserve morphine for severe pain only. Encourage ambulation. Jina Cowart MD
[2017-08-17] MEDS: MethylPREDNISolone 40 mg Vial IVP SCH ×4 (00:02→21:21)
[2017-08-17] MEDS: Albuterol-Ipratrop 3 mg / 0.5 (3 ml) UD IH SCH ×4 (02:55→20:01)
[2017-08-17] MEDS: oxyCODONE 15 mg Immediate Release Tab PO PRN ×5 (06:07→23:00)
[2017-08-17] MEDS: Albuterol-Ipratrop 3 mg / 0.5 (3 ml) UD IH PRN ×2 (06:14→12:03)
[2017-08-17] MEDS ORDERED: MethylPREDNISolone 40 mg Vial IVP SCH (07:30)
--- NOTE | 2017-08-17 08:31 | PN ---
DATE: 08/17/2017 PULMONARY NOTE SUBJECTIVE: The patient appears comfortable this morning. He is not short of breath at rest. He is very anxious. PHYSICAL EXAMINATION: VITALS: Last temperature recorded 97.3, pulse this morning 88, respirations 18/20, blood pressure 113/80. Oxygen saturation on Venti mask is 96%. HEENT: Normocephalic, atraumatic. No JVD. CARDIOVASCULAR: Systolic ejection murmur at the lower left sternal border. No S3 gallop. LUNGS: Less rhonchi, less wheezing. EXTREMITIES: No clubbing, cyanosis, or edema. Calves are nontender to palpation. GI: Abdomen is soft, nontender, and nondistended. Bowel sounds are positive. SKIN: No acute rash. NEUROLOGIC: Limited at the present time. IMPRESSION: 1. Acute back spasms. 2. Advanced chronic obstructive pulmonary disease. 3. Acute bronchospasm. 4. Coronary artery disease. 5. Atrial fibrillation. 6. Chronic anemia. PLAN: The patient appears comfortable at the time of my examination. He is not short of breath at rest. I did have a long talk with the night nurse. Almost on a daily basis, the patient does have panic attacks and starts to hyperventilate. Once he gets his anxiolytics and opioids, he calms down. He does have a long history of opioid dependence. Perhaps, a psychiatric evaluation would be helpful at this point in time. On physical exam, there is less bronchospasm noted this morning. In addition, there is less alveolar-arterial gradient. I will continue the current nebulizer treatments and decrease the intravenous steroids this morning. Input by Internal Medicine and Cardiology are noted. Clinical status of this chronically ill patient does remain guarded. I will discuss the above with the attending physician. Mane Pineda MD LEANDRA
[2017-08-17] MEDS: Potassium Chloride 10 mEq ER Tab PO SCH (10:31)
[2017-08-17] MEDS: POLYETHYLENE GLYCOL 3350 17 GM/Dose PACKET PO SCH ×2 (10:31→18:29)
[2017-08-17] MEDS: LUBIPROSTONE 24 MCG PO SCH (11:59)
[2017-08-17] MEDS: Digoxin 125 mcg (0.125 mg) Tab PO SCH (14:30)
--- NOTE | 2017-08-17 19:29 | PN ---
DATE: 08/17/2017 REASON FOR CONSULTATION AND FOLLOWUP: Back pain radiating to the abdomen and chest, chronic atrial fibrillation, status post radiofrequency ablation, nonischemic cardiomyopathy, obesity, CHF. SUBJECTIVE: Denies any chest pain, complaining of mild shortness of breath. OBJECTIVE: GENERAL: In mild respiratory distress. VITAL SIGNS: As follows; temperature afebrile, heart rate 88, and blood pressure 123/78. HEENT: PERRLA. Extraocular muscles intact. NECK: Supple. No carotid bruit or thyromegaly. CHEST: Clear to auscultation. HEART: S1 and S2 regular. ABDOMEN: Soft. EXTREMITIES: Clubbing and cyanosis negative. LABORATORY DATA: Blood workup as follows: WBC , hemoglobin 12.7, hematocrit 41.1, and platelet count 270. Chemistry shows sodium 135, potassium 4.3, chloride 94 , carbon dioxide 28, anion gap of 17, BUN 23, and creatinine 0.7. Troponin 0.01. IMPRESSION: This is a 57-year-old male with past medical history significant for mild nonischemic cardiomyopathy; nonobstructive coronary artery disease; paroxysmal atrial fibrillation, status post radiofrequency ablation, now the patient is in normal sinus, last MUGA scan showed ejection fraction of 54%, admitted with complaints of back pain, complaining of abdominal pain and shortness of breath secondary to back pain, mild crackles in the bases noted. RECOMMENDATION: He will get 40 mg of Lasix stat after ablation. He is off verapamil, off digoxin, off beta-judith. The patient is on only sotalol 120 mg and apixaban. We will continue Eliquis, given one dose of Lasix now as a stat and repeat another dose of Lasix at 3 p.m.. in addition to daily dose of it. We will follow with you. Thank you Dr. Cowart for providing us the opportunity in taking care of the patient, Rachael. We will repeat the blood workup in the morning next schedule of Lasix. Shaila Samuel MD
[2017-08-17 23:04] VITALS: O2SAT 98
[2017-08-18] MEDS: Albuterol-Ipratrop 3 mg / 0.5 (3 ml) UD IH SCH ×3 (02:03→13:03)
[2017-08-18] MEDS: oxyCODONE 15 mg Immediate Release Tab PO PRN ×3 (05:18→14:48)
[2017-08-18] MEDS: MethylPREDNISolone 40 mg Vial IVP SCH (05:19)
[2017-08-18] MEDS: Albuterol-Ipratrop 3 mg / 0.5 (3 ml) UD IH PRN ×3 (06:26→14:59)
[2017-08-18 07:00] LABS: ALBUMIN (PEP) 3.6 g/dL (3.8-4.8); ALPHA-1-GLOBULIN (PEP) 0.4 g/dL (0.2-0.3)
[2017-08-18 07:08] LABS: BASO # 0.01 K/mm3 (0.0-2.0); BASO % 0.1 % (0.0-3.0); EOS % 0.1 % (1.5-5.0); GRAN # 13.35 (1.4-6.5); GRAN % 88.7 % (50.0-68.0); HEMOGLOBIN 12.9 g/dL (14.0-18.0); LYMPH # 1.1 (1.2-3.4); LYMPH % 7.3 % (22.0-35.0); MEAN CELL VOLUME 78.7 fl (80.0-105.0); MEAN CORPUSCULAR HEMOGLOBIN 23.9 pg (25.0-35.0); MEAN CORPUSCULAR HGB CONC 30.4 g/dl (31.0-37.0); MEAN PLATELET VOLUME 10.5 fl (7.0-11.0); MONO # 0.6 (0.1-0.6); MONO % 3.8 % (1.0-6.0); RBC 5.39 10^6/uL (3.5-6.1); RED CELL DISTRIBUTION WIDTH 19.5 % (11.5-14.5)
[2017-08-18 07:39] LABS: ALB/GLOB RATIO 1.4 (1.1-1.8); ALT/SGPT 44 U/L (7-56); AST/SGOT 32 U/L (17-59); BLOOD UREA NITROGEN 34 mg/dL (7-21); GFR AFRICAN-AMERICAN > 60; GFR NON-AFRICAN AMERICAN > 60; MAGNESIUM 2.5 mg/dL (1.7-2.2)
[2017-08-18 07:50] VITALS: BP 114/82; PULSE 76; RESP 22; TEMP 98
--- NOTE | 2017-08-18 08:37 | CON ---
DATE: 08/17/2017 He is being seen today for consultation. PRESENTATION: The patient is a 57-year-old male seen at bedside, in attendance. The patient was originally admitted to the hospital on 08/12/2017 for complaining of increased shortness of breath prior to arrival. Psychiatric consultation was called due to the patient's anxiety. The patient when initially seen is very anxious, very upset, he is worried that I will think he is crazy, he wants to me to understand his anxiety is related to his medical issues and we go on from there. The patient indicates that he lives with his second . They have been for 14 years. They have a supportive marriage. She appears very supportive of him. They have some issues with finances at this point in time and they were stressed in regard to how sick he has been. The patient has never had seen a psychiatrist. He has never been on any psychiatric medication. He has never had a suicide attempt, and he denies any suicidal feelings at this time. He has never been to drug rehabilitation nor has he ever had any issues with abusing drugs. He only takes medication he has and that is prescribed for him. He does have any history of utilizing alcohol or illicit drugs. Medically, the patient has COPD, paroxysmal atrial fibrillation, CHF, CAD, history of AR, hypertension, and chronic back pain. The patient's primary medical doctor is Dr. Bowman and his acidizer water well is Dr. Love. 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 He has never had a DWI. He denies any family history of mental health issues. He indicates he grew up in [place] in [place]. His parents stay together. He is number 2 of 3 siblings and middle child. He indicates it was an Mosotho Zoroastrianism family and that his childhood was good. 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 He played football, was on the Trackyling team , was very involved in school affairs. When he graduated, he did go to college for a short period of time; however,he ran out of money and was unable to continue. He has worked his adult life in a [employer], which was a very mario place to work with a lot of dirt and fibers. He also indicates his peers were smoker and that those 2 factors, he thinks have a lot to do with his current breathing issues. The patient has a stable marriage. He is an average reader. He loves to talk about politics. He left college originally to support his first and their 2 children after 14 years of marriage was over, they got young, the other 2 children he is involved was one of them. He is a practicing Zoroastrianism. PHYSICAL EXAMINATION: CURRENT VITAL SIGNS: Include blood pressure of 115/71 and a pulse rate of 88. LABORATORY DATA: Latest laboratory results indicate that his white blood cells were up yesterday from the day before, and the patient is having 2 electrocardiograms and 2 chest x-rays since he has been in the hospital. MENTAL STATUS EXAM: The patient is alert and oriented x3. His eye contact is good. His behavior is pleasant and cooperative. His speech, rate, and volume are within normal limits. He tends to speech loudly, this is his baseline normal. His mood is anxious and his affect is constricted. His thoughts are goal directed. He is articulate. He denies being suicidal or homicidal. He denies the presence of hallucinations, delusions, or paranoia. His concentration and his focus he indicates are normal. His memory both short and long-term appears to be adequate. His appetite and sleep are erratic given that he is on steroids and having some significant difficulty with his breathing. DIAGNOSTIC IMPRESSION: Anxiety secondary to medical condition and chronic obstructive pulmonary disease. PLAN: The patient is not suicidal or homicidal and appears in no imminent danger of hurting himself or others. He is anxious, but it is clearly related to the fact that he is having difficulty breathing, this is normally seen in patients with COPD, they struggle very hard breath, it is a physiological anxiety and presents as anxiety on the outside. As I talk with the patient and his breathing comes down, he is able to articulate to me how he is feeling. His anxiety was much less and he was more comfortable. We have some concerns about his medical care and getting questions answered and that kind of thing, so I did direct him back to the medical staff for these questions. However, this patient appears to be psychiatrically stable, he has no history of any psychiatric problems, he has never been treated for any, never been on any medication and never had any suicide attempts and the anxiety is justified given his current situation, but it does seem part of his medical presentation. I will sign off on this patient, please call if there are any further needs. Thank you for the consult. Graciela Holley APN
[2017-08-18] MEDS: POLYETHYLENE GLYCOL 3350 17 GM/Dose PACKET PO SCH (09:04)
[2017-08-18] MEDS: Potassium Chloride 10 mEq ER Tab PO SCH (09:05)
[2017-08-18] MEDS ORDERED: MethylPREDNISolone 40 mg Vial IVP SCH (10:00)
[2017-08-18] MEDS: LUBIPROSTONE 24 MCG PO SCH (11:55)
--- NOTE | 2017-08-18 12:29 | PN ---
DATE: 08/18/2017 PULMONARY NOTE SUBJECTIVE: The patient appears much more comfortable this morning. He is not short of breath at rest. He is much, much less anxious. PHYSICAL EXAMINATION: VITAL SIGNS (last noted in the computer): Temperature is 98.3, pulse 88, respirations 18, blood pressure 152/88. Oxygen saturation on nasal cannula is 98%. HEENT: Normocephalic, atraumatic. No JVD. CARDIOVASCULAR: Systolic ejection murmur at the lower left sternal border. No S3 gallop. LUNGS: Much less rhonchi. No wheezing this morning. EXTREMITIES: No clubbing, cyanosis or edema. Calves are nontender to palpation. GI: Abdomen is soft, nontender and nondistended. Bowel sounds are positive. SKIN: No acute rash. NEUROLOGIC: Limited at the present time. IMPRESSION: 1. Acute back spasms. 2. Advanced chronic obstructive pulmonary disease. 3. Acute bronchospasm. 4. Coronary artery disease. 5. Atrial fibrillation. 6. Chronic anemia. PLAN: The patient appears much more comfortable this morning. He is not short of breath at rest. As above, he is also much, much less anxious. He does state to feeling much better this morning. I did discuss the case with the night nurse at length. The night nurse stated that he had very, very good night. The patient was seen by Psychiatry yesterday. I really appreciate their input. On physical exam, his bronchospasm is significantly less. In addition, the alveolar-arterial gradient is also significantly less. Oxygen saturation on nasal cannula is now 98%. I will continue with the current nebulizer treatments and decrease the intravenous steroids this morning. The patient remains on Eliquis. Input by Cardiology (Dr. Samuel) is noted. Clinical status of the patient is significantly improved this morning. However, again, the future status/prognosis for this patient does remain very guarded - as he does continue to have advanced lung disease. I will discuss the above with the attending physician. Mane Pineda MD MTDRoberto
--- NOTE | 2017-08-18 13:19 | PN ---
DATE: 08/18/2017 LOCATION: Patient in room 565, bed 2. REASON FOR CONSULTATION AND FOLLOWUP: Back pain radiating to the abdomen and chest, chronic atrial fibrillation, status post radiofrequency ablation, nonischemic cardiomyopathy, obesity, CHF and COPD. SUBJECTIVE: The patient complaining of lower back pain. Denies chest pain. Shortness of breath is stable. Denies any palpitation. PHYSICAL EXAMINATION: VITAL SIGNS: Blood pressure 114/82, respirations 22, pulse 76, temperature 98. HEENT: Head is normocephalic. Eyes, pupils normal. Conjunctivae normal. Nose and throat normal. NECK: JVP low. Carotids are equal. THORAX: AP diameter is normal. LUNGS: Clear. CARDIOVASCULAR: S1 and S2. ABDOMEN: Protuberant. No organomegaly. EXTREMITIES: No clubbing. No cyanosis. LABORATORY DATA: Showed WBC 16.0, hemoglobin 12.9, hematocrit 42.4, platelets 264. Sodium 133, potassium 4.3, BUN 34, creatinine 0.7, random glucose 122, calcium 10.0, phosphorus 5.0, magnesium 2.5. AST and ALT normal. Total protein and albumin normal. Chest x-ray clear. DIAGNOSES: Severe back pain, nonischemic cardiomyopathy, chronic obstructive pulmonary disease, nonobstructive coronary artery disease, paroxysmal atrial fibrillation, status post radiofrequency ablation, now patient maintaining sinus rhythm. Last MUGA ejection showed left ventricular ejection fraction of 54%. RECOMMENDATION AND PLAN. The patient's shortness of breath is on the basis of COPD. We will continue sotalol 120 mg b.i.d., Daliresp 500 mcg p.o. daily, DuoNeb hand nebulizer therapy, aspirin 81 daily, Eliquis 5 mg b.i.d., potassium 10 mEq daily, furosemide 40 daily, and Solu-Medrol 40 mg IV q. 12 hours. Clinically, cardiac status is stable. We will follow with you. Shaila Resendez MD
[2017-08-18] MEDS: Digoxin 125 mcg (0.125 mg) Tab PO SCH (14:48)
--- NOTE | 2017-08-19 12:23 | PN ---
DATE: 08/19/2017 PULMONARY FOLLOWUP NOTE LOCATION: TCU. SUBJECTIVE: The patient is feeling more comfortable. This morning, he is having less in the way of shortness of breath, but still has many secretions. It is difficult for him to expectorate and he needs additional help. He has been on fluid restriction, this has made his secretions thicker and he is feeling tight, unable to expectorate his phlegm. PHYSICAL EXAMINATION: GENERAL: He is resting comfortably, but he is awake and alert, able to carry full conversations. VITAL SIGNS: Stable, he is afebrile, heart rate of 80, respiratory rate is 16, blood pressure 160/84 and O2 saturation is 98% on nasal cannula. HEENT: Normocephalic and atraumatic. There is no jugular venous distention or bruit. No lymphadenopathy. CARDIOPULMONARY: Regular rhythm, systolic ejection murmur at the lower left sternal border. S1 and S2. No gallop or rub. LUNGS: Global decrease in breath sounds. No wheezes appreciated. Minimal rhonchi throughout. No rales are noted. ABDOMEN: Soft. Bowel sounds normoactive without mass, guarding, rebound or organomegaly. EXTREMITIES: Reveal no clubbing, cyanosis or edema. There is no Homans' sign. SKIN: No rash or excoriation. Lymphadenopathy is not present and evaluating a supraclavicular notch, cervical, inguinal and axillary areas. NEUROLOGIC: Within normal limits. IMPRESSION: 1. Back pain. 2. Advance chronic obstructive pulmonary disease. 3. Status post acute bronchospasm, resolving slowly. 4. Coronary artery disease, stable. 5. Atrial fibrillation. PLAN: The patient is quite concerned about not receiving his opioids that are required for his back pain. He knows that these are respiratory depressants, but needs the analgesia that he has been on for long periods of time. We will need to adjust his medications with regard to his respiratory status. Due to the secretions, he needs to drink more fluids and we will administer a mucolytic. He is in much better spirits today and we will follow closely with you. Add Mucinex twice daily. Encourage fluids. Continue inhaled bronchodilators and corticosteroids. We will discuss at length with PMD and follow closely. Thank you for the opportunity to continue to follow Mr. Cano. We will follow closely with you. Bob Love MD
--- NOTE | 2017-08-21 00:19 | DS ---
DATE OF DISCHARGE: 08/18/2017 DISCHARGE DIAGNOSES: 1. Chronic obstructive pulmonary disease exacerbation. 2. Congestive heart failure. 3. Leukocytosis. 4. Back pain. 5. Paroxysmal atrial fibrillation. 6. Nonischemic cardiomyopathy. HOSPITAL COURSE: The patient was admitted with shortness of breath. He has history of COPD and CHF. He has severe back pain. He was treated with bronchodilators, IV antibiotics. Pulmonary consultation with Dr. Pineda requested and he followed him during the hospitalization. Chest x-ray did not show any infiltrate. He has severe back pain. He has been extensively evaluated for back pain. His ejection fraction was 54% on MUGA scan, evaluated by Cardiology during hospitalization by Dr. Samuel. Shortness of breath improved, pain controlled with current medication, he is being transferred to Transitional Care Unit for deconditioning. PHYSICAL EXAMINATION: On discharge, GENERAL: Comfortable in bed, in no acute distress. VITAL SIGNS: Temperature 98.7, heart rate 80 per minute, blood pressure 150/60, respiratory rate 20 per minute, and oxygen saturation 95% on room air. HEENT: Normal. NECK: No lymphadenopathy. CHEST: Air entry present and equal bilaterally. No added sounds. CARDIOVASCULAR: S1 and S2 normal. No murmur. No gallop. ABDOMEN: Soft, nontender. No hepatosplenomegaly. EXTREMITIES: No edema. CENTRAL NERVOUS SYSTEM: Alert and oriented x3. SKIN: No petechiae. No rash. DISPOSITION: Discharged to Transitional Care Unit. CONDITION ON DISCHARGE: Stable, discussed with the staff nurse. DISCHARGE MEDICATIONS: DuoNeb q.6 hours as scheduled, Xanax 0.5 mg q.8 hours, atenolol 25 mg daily, Klonopin 0.5 mg p.o. b.i.d., digoxin 0.125 mg daily, Lasix 40 mg in the morning, Solu-Medrol 40 q.12, Protonix, sotalol 120 mg q.12, verapamil 80 mg t.i.d. Discussed with the staff nurse. Discussed with the patient. Time spent in preparing discharge and coordinating care is 60 minutes. Jina Cowart MD
== END 2017-08-18 15:59 | DRG 191 ==
LOC: ED 21:38 → ERH 23:47 → 2RSO 08-13 16:26 → OBSVTOIN 08-14 14:33 → 5RNO 08-16 22:27
PROVIDERS: ADMIT Internal Medicine; ATTEND Internal Medicine
DX: J44.1 Chronic obstructive pulmonary disease with (acute) exacerbation (principal); I42.9 Cardiomyopathy, unspecified; I11.0 Hypertensive heart disease with heart failure; I50.9 Heart failure, unspecified; I08.1 Rheumatic disorders of both mitral and tricuspid valves; I48.0 Paroxysmal atrial fibrillation; N40.0 Benign prostatic hyperplasia without lower urinary tract symptoms; I25.10 Atherosclerotic heart disease of native coronary artery without angina pectoris; M62.830 Muscle spasm of back; F06.4 Anxiety disorder due to known physiological condition; D64.9 Anemia, unspecified; I48.2 Chronic atrial fibrillation; E66.9 Obesity, unspecified; Z68.28 Body mass index [BMI] 28.0-28.9, adult; Z86.718 Personal history of other venous thrombosis and embolism; Z87.891 Personal history of nicotine dependence

== ENCOUNTER 2017-08-18 15:59 | Inpatient (IN) | payer OTHER, MEDICAID ==
[2017-08-18 17:13] VITALS: BMI 25.9
[2017-08-18] MEDS: POLYETHYLENE GLYCOL 3350 17 GM/Dose PACKET PO SCH (18:53)
[2017-08-18] MEDS: oxyCODONE 15 mg Immediate Release Tab PO PRN (19:01)
[2017-08-18] MEDS ORDERED: Influenza Vaccine 60 mcg/0.5 mL SYR (4YR UP) IM ONE (19:06)
[2017-08-18] MEDS ORDERED: Pneumococcal 23-Valent Vaccine IM ONE (19:06)
[2017-08-18] MEDS: MethylPREDNISolone 40 mg Vial IVP SCH (20:09)
[2017-08-18] MEDS: Albuterol-Ipratrop 3 mg / 0.5 (3 ml) UD IH SCH (20:20)
[2017-08-19] MEDS: Albuterol-Ipratrop 3 mg / 0.5 (3 ml) UD IH SCH ×4 (01:44→19:55)
[2017-08-19] MEDS: oxyCODONE 15 mg Immediate Release Tab PO PRN ×5 (02:07→19:24)
[2017-08-19] MEDS: MethylPREDNISolone 40 mg Vial IVP SCH ×2 (05:09→17:52)
[2017-08-19] MEDS: Albuterol-Ipratrop 3 mg / 0.5 (3 ml) UD IH PRN (05:26)
[2017-08-19] MEDS: Potassium Chloride 10 mEq ER Tab PO SCH (08:09)
[2017-08-19] MEDS: POLYETHYLENE GLYCOL 3350 17 GM/Dose PACKET PO SCH ×2 (11:00→17:44)
[2017-08-19] MEDS: Docusate-Senna 50 mg-8.6 mg Tab PO SCH ×2 (11:00→17:45)
[2017-08-19] MEDS: guaiFENesin 600 mg ER Tab PO SCH (17:45)
[2017-08-19] MEDS: Digoxin 125 mcg (0.125 mg) Tab PO SCH (17:50)
[2017-08-19 17:52] VITALS: PULSE 91
[2017-08-20] MEDS: oxyCODONE 15 mg Immediate Release Tab PO PRN ×5 (00:21→21:44)
[2017-08-20] MEDS: Albuterol-Ipratrop 3 mg / 0.5 (3 ml) UD IH SCH ×4 (02:30→20:00)
[2017-08-20] MEDS: MethylPREDNISolone 40 mg Vial IVP SCH ×2 (06:02→22:49)
[2017-08-20] MEDS: Potassium Chloride 10 mEq ER Tab PO SCH (08:17)
[2017-08-20] MEDS: POLYETHYLENE GLYCOL 3350 17 GM/Dose PACKET PO SCH ×2 (09:56→18:11)
[2017-08-20] MEDS: Docusate-Senna 50 mg-8.6 mg Tab PO SCH ×2 (09:56→18:11)
[2017-08-20] MEDS: guaiFENesin 600 mg ER Tab PO SCH ×2 (10:02→18:11)
[2017-08-20] MEDS: Lidocaine 5% Patch TD SCH (10:02)
--- NOTE | 2017-08-20 10:56 | PN ---
DATE: 08/20/2017 SUBJECTIVE: The patient has no complaints of any chest pain. No shortness of breath. He states he has pain in the back that is about 6/10 and worse when he is moving. PHYSICAL EXAMINATION: VITAL SIGNS: Temperature is 98.4, pulse of 91, blood pressure of 100/71, and respirations of 20. GENERAL: The patient is lying in bed, flat, comfortable. HEENT: No oral lesion. Anicteric sclerae. Moist mucosa. NECK: No JVD, adenopathy, or thyromegaly. CARDIOVASCULAR: S1 and S2, regular. No murmurs, rubs, or gallops. LUNGS: Clear to auscultation bilaterally. No wheeze, rales, or rhonchi. ABDOMEN: Bowel sounds are positive, soft, nontender and nondistended. EXTREMITIES: No cyanosis, clubbing or edema. ASSESSMENT: 1. Chronic back pain. 2. Chronic obstructive pulmonary disease. 3. Atrial fibrillation on anticoagulation. 4. Nonischemic cardiomyopathy. PLAN: The patient is not comfortable regarding his back pain. He states he would like Lidoderm patch. The patient is currently on nebulizer treatments. He is on aspirin daily. He is on Eliquis for his atrial fibrillation. The patient has potassium replacement as well as Lasix for his CHF. The patient is on oxycodone for pain. He is receiving Colace for constipation. He is receiving Solu-Medrol for his COPD. The patient had a EF that showed 54% by MUGA. We will place the patient on Lidoderm patch. He is on TCU and going to be continuing. Johnathon Willoughby MD
--- NOTE | 2017-08-20 13:23 | PN ---
DATE: 08/20/2017 PULMONARY PROGRESS NOTE SUBJECTIVE: The patient is markedly better. He has no chest pain. His back is still somewhat bothersome. His respiratory status is better. He is able to sit up and deep breathe deeply. His O2 saturation drops, but when he takes a deep breaths and coughs, it improves. He is not complaining of respiratory problems at this time. He is anxious to get out of TCU and go home. He wants to see me in the office after discharge and start with pulmonary rehabilitation, since the physical therapist and I have both talked to him about moving around more, exercising more. PHYSICAL EXAMINATION: VITAL SIGNS: His vital signs stable. He is afebrile, heart rate is 90, respiratory rate is 16 to 18 , and blood pressure is 110/70. GENERAL: He is sitting at the edge of the bed engaging in physical therapy and in no acute distress. HEENT: Normocephalic and atraumatic. Eyes: PERRLA. EOM is full. Conjunctivae are pink. NECK: Supple. No JVD. No lymphadenopathy. No bruit and no thyromegaly. No lymph nodes. CARDIOVASCULAR: Regular rhythm. S1 and S2 without murmur, gallop or rub. CHEST: Markedly improved. No wheezing is appreciated. Rales and rhonchi are absent as well. There is a prolonged expiratory phase with an increased AP diameter. GASTROINTESTINAL: Abdomen is soft and bowel sounds are normoactive without mass, guarding, rebound or organomegaly. EXTREMITIES: Reveal no clubbing, cyanosis or edema. There is no Homans' sign. LYMPHATIC: Lymphadenopathy is negative. CLINICAL ASSESSMENT: 1. Chronic back pain. 2. Severe chronic obstructive pulmonary disease. 3. Coronary artery disease. 4. Atrial fibrillation with rapid ventricular response. 5. Presently on anticoagulation. 6. Cardiomyopathy. PLAN: The patient is getting physical therapy and his corticosteroids will be decreased. Pain management is being looked into. The patient's COPD is doing better and he will be decreased on his corticosteroids. Hopefully, he will be discharged in the next several days. Dr. Pineda my associate will be following Mr. Cano starting tomorrow. I will see in the office as soon as he is discharged and we will follow closely as before. Thank you for the opportunity to see Demetrio and we will follow up as required. Bob Love MD [facility]
[2017-08-20] MEDS: Digoxin 125 mcg (0.125 mg) Tab PO SCH (15:08)
[2017-08-21] MEDS: oxyCODONE 15 mg Immediate Release Tab PO PRN ×5 (02:08→21:49)
[2017-08-21] MEDS: Albuterol-Ipratrop 3 mg / 0.5 (3 ml) UD IH SCH ×4 (02:18→20:15)
[2017-08-21] MEDS: Potassium Chloride 10 mEq ER Tab PO SCH (08:38)
[2017-08-21] MEDS: Lidocaine 5% Patch TD SCH (09:17)
[2017-08-21] MEDS: POLYETHYLENE GLYCOL 3350 17 GM/Dose PACKET PO SCH ×2 (09:20→17:58)
[2017-08-21] MEDS: Docusate-Senna 50 mg-8.6 mg Tab PO SCH ×2 (09:20→17:57)
[2017-08-21] MEDS: MethylPREDNISolone 40 mg Vial IVP SCH ×2 (09:21→21:43)
[2017-08-21] MEDS: guaiFENesin 600 mg ER Tab PO SCH ×2 (09:21→17:58)
--- NOTE | 2017-08-21 10:01 | PN ---
DATE: 08/21/2017 PULMONARY PROGRESS NOTE SUBJECTIVE: The patient appears comfortable this morning. He is not short of breath at rest. PHYSICAL EXAMINATION: VITAL SIGNS: (Last noted in the computer): Temperature is 98.4, pulse is 84, respirations are 18, and blood pressure is 98/73. Oxygen saturation on nasal cannula is 94%. HEENT: Normocephalic and atraumatic. NECK: No JVD. CARDIOVASCULAR: Systolic ejection murmur at the lower left sternal border. No S3 gallop. LUNGS: Very minimal/less rhonchi. No wheezing. EXTREMITIES: No clubbing, cyanosis or edema. Calves are nontender to palpation. GASTROINTESTINAL: Abdomen is soft, nontender and nondistended. Bowel sounds are positive. SKIN: No acute rash. NEUROLOGIC: Exam is limited at the present time. IMPRESSION 1. Acute back spasms. 2. Advanced chronic obstructive pulmonary disease. 3. Acute bronchospasm - resolving. 4. Coronary artery disease. 5. Atrial fibrillation. 6. Chronic anemia. PLAN: The patient appears very comfortable this morning. He is not short of breath at rest. He states he is feeling much, much better overall. On physical exam, his bronchospasm continues to resolve. I will continue the current nebulizer treatments and low-dose intravenous steroids (decreased yesterday) for now. I would continue with the Cardiology and Psychiatric evaluations. Inputs are noted. Clinical status of the patient is significantly improved - compared to last week. However, again, the overall/future status/prognosis for this patient does remain guarded - as he continues to have advanced lung disease. I will discuss the above with the attending physician. Mane Pineda MD [facility]
[2017-08-21] MEDS: Pantoprazole 40 mg EC Tab PO SCH (14:21)
[2017-08-21] MEDS: Digoxin 125 mcg (0.125 mg) Tab PO SCH (14:22)
--- NOTE | 2017-08-21 15:31 | CON ---
DATE: 08/21/2017 LOCATION: The patient is in room 304, bed 1. REASON FOR CONSULTATION: Back pain radiating to upper abdominal pain, shortness of breath, history of atrial fibrillation, status post ablation, cardiomyopathy, COPD, and deconditioning. HISTORY OF PRESENT ILLNESS: The patient is a 57-year-old male admitted to Transitional Care Unit for deconditioning. The patient was on medical floor, where he was admitted with severe back pain with radiating to the upper abdominal area. The patient is known to have COPD and had atrial fibrillation. In June he had ablation for atrial fibrillation. The patient denied any chest pain, however, he said when he took deep breath his pain in the back was more severe and so he could not take deep breathing, which is leading to his shortness of breath. His pain also gets worse, when he lies down and when he walks, that is lower back pain. Since he had ablation, he denies any incidents of palpitation. The patient is now admitted to Transitional Care Unit for deconditioning and physical therapy. PAST MEDICAL HISTORY: Significant for non-ST segment elevation myocardial infarction in 2013 followed by cardiac catheterization in 2013 that was essential normal coronary anatomy and cardiomyopathy possibly secondary thrombus that went into the coronary. Later on MUGA scan showed ejection fraction of 54% in 2013. Repeat MUGA in 04/2014 showed ejection fraction of 50%. The patient's echo in 05/2017 showed LV normal, normal LV wall thickness, normal LV ejection fraction of 50%, transmitral Doppler flow pattern showed grade I abnormal relaxation pattern, mild pulmonary hypertension, with RVSP 49 mmHg. In 06/2017, patient had ablation for atrial fibrillation by Dr. Amador, since then the patient denies having any palpitations. PERSONAL HISTORY: He used to smoke 1 pack a day, He has stopped. Denies any drinking. ALLERGIES: THE PATIENT DENIES ANY ALLERGIES. MEDICATIONS AT HOME: The patient was taking Singulair 10 mg p.o. daily, potassium 10 mEq daily, prednisone 10 mg daily, verapamil 80 mg p.o. t.i.d., Brovana 15 mcg IH b.i.d., Amitiza 24 mcg p.o. daily, atenolol 25 mg daily, budesonide 1 inhalation b.i.d., Eliquis 5 mg b.i.d., and Klonopin 0.5 mg b.i.d. REVIEW OF SYSTEMS: All other system reviewed, positive mentioned in the HPI, otherwise negative. PHYSICAL EXAMINATION: VITAL SIGNS: Blood pressure 102/73, pulse 80, respirations 29, and the patient is afebrile. HEENT: Head is normocephalic. Eyes, pupils normal. Conjunctivae normal. NECK: JVP low. Carotids are equal. THORAX: AP diameter is slightly increased. LUNGS: No significant rales. CARDIOVASCULAR: S1 and S2. ABDOMEN: Soft. No tenderness. No organomegaly. Bowel sounds normal. EXTREMITIES: No clubbing. No cyanosis. LABORATORY DATA: WBC 15.0, hemoglobin 12.9, hematocrit 42.4, and platelets 264. Random sugar 147. Labs on 08/18/2017 showed sodium 133, potassium 4.3, BUN 34, creatinine 0.7, random sugar 152, random glucose 122, phosphorus 5.0, magnesium 2.5. Troponin less than 0.01. DIAGNOSES AND PLAN: Back pain radiating to upper abdominal wall. No chest pain, shortness of breath due to chronic obstructive pulmonary disease, nonobstructive coronary artery disease, left ventricular ejection fraction low normal around 50% on the last echocardiogram, atrial fibrillation, status post ablation, since then patient does not have any palpitation and deconditioning. The patient is on Transitional Care Unit. The patient is on sotalol 120 b.i.d., DuoNeb hand nebulizer therapy, aspirin 81 daily, Eliquis 5 b.i.d., potassium 10 mEq p.o. daily, digoxin 0.125 daily, furosemide 40 mg p.o. daily, Mobic 15 mg daily, and Solu-Medrol 30 mg IV q.12 hours. We will add Protonix 40 mg daily to therapy and we will continue physical therapy and we will follow with you. Shaila Resendez MD
--- NOTE | 2017-08-22 01:17 | PN ---
DATE: SUBJECTIVE: The patient is a 57-year-old, who was admitted with lower back pain, chest pain, has been having some shortness of breath, cough and congestion, transferred to TCU for close observation and physical therapy and monitoring and pain management. PHYSICAL EXAMINATION GENERAL: He is awake, alert, oriented, communicative. VITAL SIGNS: He is afebrile, pulse 75, respirations 20, blood pressure 104/68. LUNGS: Bilateral fair airflow. No rhonchi or crackles. HEART: S1, S2 audible. ABDOMEN: Soft, obese, nontender. No rebound, no guarding. NEUROLOGIC: The patient is awake and alert, able to communicate. LABORATORY EXAM: Blood sugar is 179. ASSESSMENT AND PLAN: 1. Probably degenerative disk disease versus musculoskeletal . 2. Lumbosacral radiculopathy. 3. Atrial fibrillation, status post ablation procedure in [facility]. 4. Congestive heart failure. 5. History of chronic obstructive pulmonary disease secondary to chronic smoking. 6. Chronic atrial fibrillation. PLAN: Currently, the patient is on sotalol 120 mg twice a day, he is on Daliresp, getting nebulizer treatment, aspirin 81 daily, he is on Eliquis, we will add muscle relaxant. Continue him on Lasix and potassium, Lidoderm patch will be placed on his chest. We will add antiinflammatory and analgesic as needed. I will follow up the patient in the a.m. Ross Bowman MD
[2017-08-22] MEDS: Albuterol-Ipratrop 3 mg / 0.5 (3 ml) UD IH SCH ×4 (02:30→21:24)
[2017-08-22] MEDS: oxyCODONE 15 mg Immediate Release Tab PO PRN ×5 (04:38→23:39)
--- NOTE | 2017-08-22 07:55 | PN ---
DATE: 08/22/2017 PULMONARY NOTE SUBJECTIVE: The patient appears very comfortable this morning. He is not short of breath at rest. PHYSICAL EXAMINATION: VITAL SIGNS: Temperature is 98.2, pulse 80, respirations 18, blood pressure 101/66. Oxygen saturation on nasal cannula is 94%. HEENT: Normocephalic, atraumatic. NECK: No JVD. CARDIOVASCULAR: Systolic ejection murmur at the lower left sternal border. No S3 gallop. LUNGS: Very minimal/less rhonchi. No wheezing. EXTREMITIES: No clubbing, cyanosis or edema. Calves are nontender to palpation. GI: Abdomen is soft, nontender and nondistended. Bowel sounds are positive. SKIN: No acute rash. NEUROLOGIC: Exam limited at the present time. IMPRESSION: 1. Acute back spasms. 2. Advanced chronic obstructive pulmonary disease. 3. Acute bronchospasm - resolving. 4. Coronary artery disease. 5. Atrial fibrillation. 6. Chronic anemia. PLAN: The patient appears very comfortable this morning. He is not short of breath at rest. He does state to feeling much better overall. On physical exam, his bronchospasm continues to resolve. In addition, the alveolar arterial gradient also continues to resolve. I will continue the current nebulizer treatments and low-dose intravenous steroids for now. I would continue with the Psychiatry and Cardiology evaluations. Inputs are noted. Clinical status of the patient is significantly improved. I will discuss the above with the attending physician. Mane Pineda MD [facility]
[2017-08-22] MEDS: Potassium Chloride 10 mEq ER Tab PO SCH (08:40)
[2017-08-22] MEDS: Docusate-Senna 50 mg-8.6 mg Tab PO SCH ×2 (09:27→17:53)
[2017-08-22] MEDS: Lidocaine 5% Patch TD SCH (09:28)
[2017-08-22] MEDS: guaiFENesin 600 mg ER Tab PO SCH ×2 (09:29→17:55)
[2017-08-22] MEDS: POLYETHYLENE GLYCOL 3350 17 GM/Dose PACKET PO SCH ×2 (09:29→17:53)
--- NOTE | 2017-08-22 09:34 | CP.PCM.PCO ---
Physician Communication Note - Physician Communication Note Physician Communication Note: psych team signed off last week, call if any changes with mental status
[2017-08-22] MEDS: Pantoprazole 40 mg EC Tab PO SCH (09:42)
[2017-08-22] MEDS: MethylPREDNISolone 40 mg Vial IVP SCH ×2 (09:51→22:49)
--- NOTE | 2017-08-22 13:21 | PN ---
DATE: 08/22/2017 REASON FOR CONSULTATION: Back pain radiating to upper abdominal pain, shortness of breath, history of atrial fibrillation, status post ablation, cardiomyopathy, COPD, and deconditioning. HISTORY OF PRESENT ILLNESS: Patient admitted to Transitional Care for deconditioning. Patient continues to have back pain radiating to abdominal area. Patient noted to have COPD and had atrial fibrillation. In 06/2017, he had ablation for atrial fibrillation. Since then, patient denies any palpitation. Patient lying in bed, still complains of back pain. He denies any chest pain, palpitation, he says his breathing is stable. PHYSICAL EXAMINATION: VITAL SIGNS: Blood pressure 101/66, respiration 20, pulse 90, temperature is 98.2. HEENT: Head is normocephalic. Eyes, pupils normal. Conjunctivae normal. Nose and throat normal. NECK: JVP low. Carotids are equal. THORAX: AP diameter is normal. LUNGS: No significant rales. CARDIOVASCULAR: S1 and S2. ABDOMEN: Soft. No organomegaly. Bowel sounds normal. EXTREMITIES: No clubbing. No cyanosis. LABORATORY DATA: Random sugar 143. Other lab data was done on the medical floor and they were reported in our previous notes. DIAGNOSES: Back pain radiating to upper abdominal wall. No chest pain, shortness of breath related to chronic obstructive pulmonary disease, nonobstructive coronary artery disease, left ventricular ejection fraction 50% on the last echocardiogram, atrial fibrillation, status post ablation. Since then, patient denies any palpitation and deconditioning. PLAN: Patient to continue physical therapy and continue therapy for back pain. Patient is on aspirin 81 mg daily, Eliquis 5 mg b.i.d., potassium 10 mEq p.o. daily, digoxin 0.125 daily, furosemide 40 p.o. daily, Mobic 15 mg p.o. daily, and Solu-Medrol 30 mg IV q. 12 hours. Clinically, cardiac status stable. Continue physical therapy. Patient is also on sotalol 120 mg b.i.d. Also, on Daliresp 500 mcg p.o. daily. We will follow with you. Shaila Resendez MD [facility] # [id number]
--- NOTE | 2017-08-22 17:45 | RAD ---
HISTORY: back pain COMPARISON: 05/29/2017 FINDINGS: BONES: Moderate compression fractures are seen at T9 and T10. These were not present on the previous study DISC SPACES: Normal. SOFT TISSUES: Normal. OTHER FINDINGS: None. IMPRESSION: Moderate compression fractures are seen at T9 and T10. These were not present on the previous study
--- NOTE | 2017-08-22 17:46 | RAD ---
PROCEDURE: Radiographs of the Lumbar Spine. HISTORY: back pain COMPARISON: No prior. FINDINGS: BONES: Normal alignment. No listhesis. No fracture. DISC SPACES: Unremarkable. OTHER FINDINGS: None. IMPRESSION: Unremarkable radiographs of the lumbar spine.
--- NOTE | 2017-08-22 22:20 | PN ---
DATE: SUBJECTIVE: The patient is 57-year-old, seen and examined, still has back pain, the tip of trapezius muscle area and the low back area, complain of having difficulty taking deep breath because of the pain. Current medication is not helping. PHYSICAL EXAMINATION: VITAL SIGNS: He is afebrile, pulse 96, respirations 20, blood pressure 100/68. LUNGS: Bilateral fair airflow. No rhonchi or crackle. HEART: S1, S2 audible. ABDOMEN: Soft, nontender. No rebound. No guarding. NEUROLOGIC: The patient is awake and alert, able to communicate. LABORATORY DATA: Blood sugar is 119. ASSESSMENT AND PLAN: 1. Musculoskeletal pain. 2. Lumbosacral sprain. 3. Paroxysmal atrial fibrillation, status post ablation, currently on sotalol, off of digoxin. 4. Hypertension. 5. Nonischemic cardiomyopathy. 6. Chronic obstructive pulmonary disease. 7. Opioid dependence. PLAN: I will continue the patient on NSAIDs, local Lidoderm patch has been applied with no significant relief. I will request Dr. Demetrio Mota to evaluate the patient and discharge plan for five days with home physical therapy. Ross Bowman MD
[2017-08-23] MEDS: Albuterol-Ipratrop 3 mg / 0.5 (3 ml) UD IH SCH ×3 (01:16→14:50)
[2017-08-23] MEDS: oxyCODONE 15 mg Immediate Release Tab PO PRN ×3 (03:25→15:40)
--- NOTE | 2017-08-23 08:04 | PN ---
DATE: SUBJECTIVE: The patient appears very comfortable this morning. He is not short of breath at rest. OBJECTIVE VITALS (last noted in the computer): Temperature 97.2, pulse 90, respirations 18, blood pressure 100/68. Oxygen saturation on nasal cannula is 94%. HEENT: Normocephalic, atraumatic. No JVD. CARDIOVASCULAR: Systolic ejection murmur at the lower left sternal border. No S3 gallop. LUNGS: Very minimal/less rhonchi. No wheezing. EXTREMITIES: No clubbing, cyanosis or edema. Calves are nontender to palpation. GASTROINTESTINAL: Abdomen is soft, nontender and nondistended. Bowel sounds are positive. SKIN: No acute rash. NEUROLOGIC: Exam limited at the present time. IMPRESSION 1. Acute back spasms. 2. Advanced chronic obstructive pulmonary disease. 3. Acute bronchospasm - resolving. 4. Coronary artery disease. 5. Atrial fibrillation. 6. Chronic anemia. PLAN: The patient appears very comfortable this morning. He is not short of breath at rest. He does state to feeling much, much better overall. On physical exam, his bronchospasm continues to resolve. In addition, the alveolar-arterial gradient is also much less. I will continue with the current nebulizer treatments and change to oral steroids this morning. Inputs by Cardiology and Psychiatry are noted. Clinical status of the patient is significantly improved. However, again, the future status/prognosis for this patient does remain guarded - as he does continue to have advanced lung disease. Mane Pineda MD MTDD
[2017-08-23] MEDS: Potassium Chloride 10 mEq ER Tab PO SCH (08:24)
[2017-08-23] MEDS: Lidocaine 5% Patch TD SCH (10:21)
[2017-08-23] MEDS: guaiFENesin 600 mg ER Tab PO SCH ×2 (10:22→17:47)
[2017-08-23] MEDS: POLYETHYLENE GLYCOL 3350 17 GM/Dose PACKET PO SCH ×2 (10:22→17:47)
[2017-08-23] MEDS: Docusate-Senna 50 mg-8.6 mg Tab PO SCH ×2 (10:23→17:47)
--- NOTE | 2017-08-23 14:54 | PN ---
DATE: REASON FOR CONSULTATION: ____ back pain radiating to upper abdomen, shortness of breath, history of atrial fibrillation, status post ablation, COPD, deconditioning, left ventricle ejection fraction of 50% on the last echo. SUBJECTIVE: The patient is lying comfortably in bed, without any chest pain, shortness of breath, palpitation, but he still complains of lower back pain. PHYSICAL EXAMINATION: VITAL SIGNS: Blood pressure 100/68, respirations 20, pulse 90 and temperature 97.2. HEENT: Head is normocephalic. Eyes, pupils normal. Conjunctivae are normal. Nose and throat is normal. NECK: JVP low. Carotids equal. THORAX: AP diameter normal. LUNGS: No rales. CARDIOVASCULAR: S1 and S2. ABDOMEN: Soft. No tenderness. No organomegaly. EXTREMITIES: No clubbing, no cyanosis. LABORATORY DATA: Random sugar 219. Other labs were done on the medical floor and they were reported in our previous notes on the medical floor. DIAGNOSES: Back pain radiating to upper abdominal wall, no chest pain, shortness of breath related to chronic obstructive pulmonary disease, non-obstructive coronary artery disease, left ventricular ejection fraction 50% on the last echocardiogram, atrial fibrillation, status post ablation. Since then, patient denies any palpitation. The patient has had deconditioning for which he is getting home physical therapy. PLAN: Will continue physical therapy for deconditioning and back pain. We will continue sotalol 120 mg p.o. b.i.d., DuoNeb hand nebulizer therapy, aspirin 81 mg daily, Eliquis 5 mg b.i.d., Flexeril 5 mg p.o. t.i.d.,potassium 10 mEq p.o. daily, furosemide 40 mg p.o. daily, Mobic 15 mg p.o. daily, Protonix 40 p.o. daily. Continue physical therapy. Shaila Resendez MD
[2017-08-23 17:34] VITALS: RESP 20
[2017-08-24] MEDS: Albuterol-Ipratrop 3 mg / 0.5 (3 ml) UD IH SCH ×4 (01:28→20:31)
[2017-08-24] MEDS: oxyCODONE 15 mg Immediate Release Tab PO PRN ×5 (01:44→23:02)
[2017-08-24] MEDS: Pantoprazole 40 mg EC Tab PO SCH ×2 (05:46→10:02)
[2017-08-24] MEDS: Albuterol-Ipratrop 3 mg / 0.5 (3 ml) UD IH PRN (06:08)
[2017-08-24] MEDS: Potassium Chloride 10 mEq ER Tab PO SCH (08:25)
--- NOTE | 2017-08-24 08:47 | PN ---
DATE: 08/23/2017 SUBJECTIVE: The patient is a 57-year-old, seen and examined, and doing well. He states pain is getting better. No nausea or vomiting. No diarrhea. PHYSICAL EXAMINATION: VITAL SIGNS: The patient is afebrile, pulse 70, respirations 20, and blood pressure 95/59. LUNGS: Bilateral diffusely decreased breath sounds. HEART: S1 and S2 audible. ABDOMEN: Soft and nontender. No rebound. No guarding. NEUROLOGIC: The patient is awake, alert and oriented, and able to communicate. LABORATORY DATA: Blood sugar is 231. ASSESSMENT: 1. T9 and T10 compression fractures. 2. Musculoskeletal chest pain. 3. Chronic obstructive pulmonary disease exacerbation. 4. Chronic atrial fibrillation seems to be rate control. Currently, on sotalol. PLAN: We will continue the patient on current medication. Continue physical therapy. We will follow up with the patient in a.m. Ross Bowman MD
[2017-08-24] MEDS: Lidocaine 5% Patch TD SCH (10:00)
[2017-08-24] MEDS: POLYETHYLENE GLYCOL 3350 17 GM/Dose PACKET PO SCH ×2 (10:01→17:28)
[2017-08-24] MEDS: guaiFENesin 600 mg ER Tab PO SCH ×2 (10:01→17:28)
[2017-08-24] MEDS: Docusate-Senna 50 mg-8.6 mg Tab PO SCH ×2 (10:02→17:28)
--- NOTE | 2017-08-24 10:31 | PN ---
DATE: 08/24/2017 PULMONARY PROGRESS NOTE SUBJECTIVE: The patient appears very comfortable this morning. He is not short of breath at rest. PHYSICAL EXAMINATION: VITAL SIGNS: Temperature is 97.8, pulse is 70, respirations are 18, and blood pressure is 113/77. Oxygen saturation on nasal cannula ranges between 91% and 94%. HEENT: Normocephalic and atraumatic. NECK: No JVD. CARDIOVASCULAR: Systolic ejection murmur at the lower left sternal border. No S3 gallop. LUNGS: Very minimal/less rhonchi. No wheezing. Extremities: No clubbing, cyanosis or edema. Calves are nontender to palpation. GASTROINTESTINAL: Abdomen is soft, nontender and nondistended. Bowel sounds are positive. SKIN: No acute rash. NEUROLOGIC: Exam is limited at the present time. IMPRESSION 1. Acute back spasms. 2. Advanced chronic obstructive pulmonary disease. 3. Acute bronchospasm-- resolving. 4. Coronary artery disease. 5. Atrial fibrillation. 6. Chronic anemia. PLAN: The patient appears very comfortable this morning. He is not short of breath at rest. He does state to feeling much better overall. On physical exam, his bronchospasm continues to resolve. I will continue the current nebulizer treatments and oral steroids (changed yesterday) for now. Inputs by Cardiology and Psychiatry are also noted. Clinical status of the patient is significantly improved. However, again, the overall status/prognosis for this patient does remain guarded - as he continues to have advanced lung disease. I will discuss the above with the attending physician. Mane Pineda MD MTDRoberto
--- NOTE | 2017-08-24 19:32 | PN ---
DATE: SUBJECTIVE: The patient is a 57-year-old male, seen and examined, seems to be in pain. He went for therapy yesterday evening, and since then his upper and lower back has been hurting. He cannot find any comfortable position. PHYSICAL EXAMINATION: VITAL SIGNS: He is afebrile, pulse 170, respirations are 20, and blood pressure is 119/84. LUNGS: Bilateral fair airflow, diffusely decreased breath sounds. No rhonchi or crackles. HEART: S1 and S2 audible. ABDOMEN: Soft and nontender. No rebound, no guarding. NEUROLOGIC: The patient is awake, alert, and oriented. Able to communicate, has generalized weakness. LABORATORY EXAMINATION: Blood sugar is 119. ASSESSMENT: 1. Intractable back pain. 2. T9 and T12 compression fracture. 3. Chronic obstructive pulmonary disease. 4. Nonischemic cardiomyopathy. 5. History of alcohol abuse in the past. 6. History of alcohol dependence. PLAN: We will apply 5% Lidoderm patch to either side of the spine and also in the thoracic spine area. He is on Flexeril 5 mg three times a day. Continue him on Lasix. Continue him on Mobic. We will re-evaluate the patient in a.m. oRss Bowman MD
[2017-08-25] MEDS: Albuterol-Ipratrop 3 mg / 0.5 (3 ml) UD IH SCH ×4 (01:28→21:06)
[2017-08-25] MEDS: Albuterol-Ipratrop 3 mg / 0.5 (3 ml) UD IH PRN (06:06)
--- NOTE | 2017-08-25 08:34 | PN ---
DATE: 08/24/2017 LOCATION: The patient is in room 304, bed 1. REASON FOR CONSULTATION: Back pain radiating to upper abdomen, shortness of breath, history of atrial fibrillation, status post ablation, COPD, deconditioning. SUBJECTIVE: The patient is lying in bed comfortably without chest pain, shortness of breath or palpitations, still complained of back pain. The patient denies any palpitations since ablation. PHYSICAL EXAMINATION: VITAL SIGNS: Blood pressure 113/77, respirations 22, pulse 70, temperature 97.8. HEENT: Head is normocephalic. Eyes, pupils normal. Conjunctivae normal. Nose and throat normal. NECK: JVP low. Carotids are equal. THORAX: AP diameter is normal. LUNGS: No significant rales. CARDIOVASCULAR: S1 and S2. ABDOMEN: Soft. No organomegaly. Bowel sounds normal. EXTREMITIES: No clubbing. No cyanosis. LABORATORY DATA: Random glucose 100. Other labs were done on the medical floor and they were reported in our previous notes. The patient had moderate compression fractures of T9 and T10 . DIAGNOSES: Back pain radiating to the upper abdominal wall probably related to compression fracture of T9 and T10, nonobstructive coronary artery disease, left ventricular ejection fraction 50% on the last echocardiogram, history of atrial fibrillation status post ablation. Since then, patient did not have any palpitation . PLAN: The patient Mobic 15 mg daily, prednisone 40 mg daily, Protonix 40 daily. We will follow with you. Shaila Resendez MD
[2017-08-25] MEDS: Potassium Chloride 10 mEq ER Tab PO SCH (09:00)
[2017-08-25] MEDS: oxyCODONE 15 mg Immediate Release Tab PO PRN (09:17)
[2017-08-25] MEDS: guaiFENesin 600 mg ER Tab PO SCH ×2 (10:34→18:26)
[2017-08-25] MEDS: Pantoprazole 40 mg EC Tab PO SCH ×2 (10:36→10:37)
[2017-08-25] MEDS: Docusate-Senna 50 mg-8.6 mg Tab PO SCH ×2 (10:37→18:26)
[2017-08-25] MEDS: POLYETHYLENE GLYCOL 3350 17 GM/Dose PACKET PO SCH ×2 (11:00→18:26)
[2017-08-25] MEDS: Lidocaine 5% Patch TD SCH (11:53)
--- NOTE | 2017-08-25 11:57 | PN ---
DATE: 08/25/2017 SUBJECTIVE: The patient appears very comfortable this morning. He is not short of breath at rest. PHYSICAL EXAMINATION: VITALS SIGNS: Temperature is 98.7, pulse is 87, respirations 18, blood pressure 101/68. Oxygen saturation on nasal cannula is 96%. HEENT: Normocephalic, atraumatic. NECK: No JVD. CARDIOVASCULAR: Systolic ejection murmur at the lower left sternal border. No S3 gallop. LUNGS: No rhonchi or wheezing this morning. EXTREMITIES: No clubbing, cyanosis, or edema. Calves are nontender to palpation. GI: Abdomen is soft, nontender, and nondistended. Bowel sounds are positive. SKIN: No acute rash. NEUROLOGIC: Limited at the present time. IMPRESSION: 1. Acute back spasms. 2. Advanced chronic obstructive pulmonary disease. 3. Acute bronchospasm - resolving. 4. Coronary artery disease. 5. Atrial fibrillation. 6. Chronic anemia. PLAN: The patient appears very comfortable this morning. He is not short of breath at rest. He does state to feeling much, much better overall. On physical exam, his bronchospasm continues to resolve. In addition, the alveolar arterial gradient also continues to resolve. I will continue with the current nebulizer treatments and decrease the oral steroids this morning. Input by Cardiology is also noted. Clinical status of the patient is significantly improved overall. However, again, the patient's future status/prognosis does remain guarded - as he does continue to have advanced lung disease. The patient is for probable discharge tomorrow. I will discuss the above with the attending physician. Mane Pineda MD LEANDRA
--- NOTE | 2017-08-25 13:48 | PN ---
DATE: 08/25/2017 REASON FOR CONSULTATION AND FOLLOWUP: Complaining of back pain radiating to the front and upper abdomen, shortness of breath, history of atrial fibrillation, status post ablation, COPD, deconditioning not in apparent distress, lying flat in the bed, but is still complaining of pain. OBJECTIVE: GENERAL: Not in apparent distress when he is still, but on movement complained of pain in the back. VITAL SIGNS: Temperature afebrile, heart rate 87, and blood pressure 101/68.. HEENT: PERRLA. Extraocular muscles intact. NECK: Supple. No carotid bruits or thyromegaly. CHEST: Clear to auscultation. HEART: S1, S2, regular. ABDOMEN: Soft. EXTREMITIES: Clubbing and cyanosis negative. LABORATORY DATA: Blood workup as follows; blood glucose 92. IMPRESSION: Back pain. X-ray of his spine shows compression fracture of T9 and T10. Back pain radiating to the upper abdomen, probably related to compression fracture, nonobstructive coronary artery disease, ejection fraction 25% in last echo, history of atrial fibrillation status post ablation. RECOMMENDATION: Adequate analgesia for pain. CV status is stable. Continue Eliquis. Continue sotalol. The patient is on verapamil. Nonischemic cardiomyopathy, history of alcohol abuse in the past, continue Eliquis. If the patient in 2 to 3 months, we will discontinue anticoagulation. Continue sotalol. Follow with Dr. Amador, pattern gater, upon discharge. We will follow with you. The patient had a prior thoracic spine x-ray on 05/29/2013. No acute fracture at that time noted. Thank you Dr. Bowman for providing us the opportunity in taking care of the patient, Demetrio Cano. Shaila Samuel MD
[2017-08-25] MEDS: oxyCODONE 5 mg Immediate Release Tab PO PRN (15:38)
[2017-08-25 17:21] VITALS: PULSE 74; TEMP 98; O2SAT 97
[2017-08-26] MEDS: oxyCODONE 5 mg Immediate Release Tab PO PRN ×2 (00:32→08:13)
--- NOTE | 2017-08-26 00:46 | PN ---
DATE: SUBJECTIVE: Patient is 57 years old, seen and examined. States he feels a lot better today; not having difficulty breathing like before. PHYSICAL EXAMINATION: VITAL SIGNS: He is afebrile, pule 74, respiration 20, blood pressure 91/60. LUNGS: Bilateral, diffusely decreased breath sound. HEART: S1 and S2 audible. ABDOMEN: Soft, nontender, no rebound, no guarding. NEUROLOGICALLY: Patient is awake and alert, able to communicate, ambulate with a cane. LABORATORY DATA: Blood sugar is 252. ASSESSMENT: 1. Intractable back pain. 2. History of T9 and T10 compression fracture. 3. Chronic obstructive pulmonary disease. 4. Atrial fibrillation status post ablation, seems to be in sinus rhythm. 5. Nonischemic cardiomyopathy. PLAN: We will continue patient on current medical regimen. He is on Daliresp, sotalol, nebulizer treatment, aspirin. He is on Eliquis that we will continue a total of 1 month after the ablation and then it will be discontinued. Taper down his steroid. Followup . Ross Bowman MD
[2017-08-26] MEDS: Albuterol-Ipratrop 3 mg / 0.5 (3 ml) UD IH SCH ×2 (01:33→08:00)
[2017-08-26] MEDS: Albuterol-Ipratrop 3 mg / 0.5 (3 ml) UD IH PRN ×3 (03:42→10:38)
[2017-08-26 05:37] VITALS: BP 93/60
[2017-08-26] MEDS: Potassium Chloride 10 mEq ER Tab PO SCH (08:04)
--- NOTE | 2017-08-26 08:55 | PN ---
DATE: 08/26/2017 PULMONARY NOTE SUBJECTIVE: The patient appears very comfortable this morning. He is not short of breath at rest. PHYSICAL EXAMINATION VITAL SIGNS: Last temperature recorded is 98.0, pulse this morning 80, respiration 18, last blood pressure recorded 93/60. Oxygen saturation on nasal cannula is 97%. HEENT: Normocephalic, atraumatic. No JVD. CARDIOVASCULAR: Systolic ejection murmur at the lower left sternal border. No S3 gallop. LUNGS: Clear bilaterally. EXTREMITIES: No clubbing, cyanosis or edema. Calves are nontender to palpation. GI: Abdomen is soft, nontender, nondistended. Bowel sounds are positive. SKIN: No acute rash. NEUROLOGIC: Limited at the present time. IMPRESSION: 1. Acute back spasms. 2. Advanced chronic obstructive pulmonary disease. 3. Acute bronchospasm - resolved. 4. Coronary artery disease. 5. Atrial fibrillation. 6. Chronic anemia. PLAN: The patient appears very comfortable this morning. He is not short of breath at rest. He does state to feeling much, much better overall. On physical exam, his lungs are clear. In addition, the oxygen saturation on nasal cannula is now 97%. I will continue the current nebulizer treatments and oral steroids for now. Clinical status of the patient is significantly improved - compared to the initial presentation. He is for probable discharge this morning. He is well aware that he will need to follow up with my partner, Dr. Love as an outpatient. I will discuss the above with the attending physician. Mane Pineda MD LEANDRA
[2017-08-26] MEDS: Lidocaine 5% Patch TD SCH (10:23)
[2017-08-26] MEDS: Pantoprazole 40 mg EC Tab PO SCH (10:24)
[2017-08-26] MEDS: Docusate-Senna 50 mg-8.6 mg Tab PO SCH (10:24)
[2017-08-26] MEDS: guaiFENesin 600 mg ER Tab PO SCH (10:25)
[2017-08-26] MEDS: POLYETHYLENE GLYCOL 3350 17 GM/Dose PACKET PO SCH (10:25)
--- NOTE | 2017-08-27 08:59 | DS ---
HOSPITAL COURSE: The patient is 57-year-old, seen and examined, was admitted with intractable chest pain, mid back pain, and lower back pain. He was found to have compression fracture of T9 to T10. He also has some component of COPD exacerbation. He was placed in TCU for rehab, pain management, and close observation. The patient meanwhile in TCU received physical therapy, has been on different pain medications until his pain was controlled. PHYSICAL EXAMINATION: GENERAL: On examination today, he is awake, alert, oriented, and communicative. VITAL SIGNS: He is afebrile, pulse 74, respirations 20, blood pressure 93/60. LUNGS: Bilateral diffusely decreased breath sounds. HEART: S1, S2 audible. ABDOMEN: Soft and nontender. No rebound. No guarding. NEUROLOGIC: He is awake, alert, oriented, able to communicate, ambulatory with a walker. LABORATORY EXAM: Blood sugar 94. ASSESSMENT AND PLAN: 1. Chronic obstructive pulmonary disease exacerbation. 2. History of chronic atrial fibrillation, status post ablation. Currently, on Eliquis and he is in sinus rhythm. 3. Degenerative disk disease. 4. Musculoskeletal pain. 5. Nonischemic cardiomyopathy. 6. Morbid obesity. 7. Narcotic dependence. PLAN: The patient is being discharged home on oxycodone 15 mg q. 6 hours p.r.n., Zanaflex 4 mg t.i.d. We will resume all his medications that includes sotalol 120 twice a day. He is on prednisone 10 mg twice a day, Daliresp 500 daily, aspirin, Eliquis, and Xanax. He will follow up in office. Ross Bowman MD
== END 2017-08-26 13:15 | disposition home or self-care (01) | DRG 191 ==
LOC: TRCU 15:59
PROVIDERS: ADMIT Internal Medicine; ATTEND Internal Medicine
PROC: F07Z9FZ Gait Training/Functional Ambulation Treatment using Assistive, Adaptive, Supportive or Protective Equipment (ICD-10-PCS; principal; 2017-08-19)
PROC: F07M6ZZ Therapeutic Exercise Treatment of Musculoskeletal System - Whole Body (ICD-10-PCS; 2017-08-19)
PROC: F08Z1ZZ Dressing Techniques Treatment (ICD-10-PCS; 2017-08-21)
PROC: F08Z2ZZ Grooming/Personal Hygiene Treatment (ICD-10-PCS; 2017-08-21)
PROC: F08Z0ZZ Bathing/Showering Techniques Treatment (ICD-10-PCS; 2017-08-21)
DX: J44.1 Chronic obstructive pulmonary disease with (acute) exacerbation (principal); M48.54XA Collapsed vertebra, not elsewhere classified, thoracic region, initial encounter for fracture; I27.20 Pulmonary hypertension, unspecified; I42.9 Cardiomyopathy, unspecified; I11.0 Hypertensive heart disease with heart failure; I50.9 Heart failure, unspecified; E66.01 Morbid (severe) obesity due to excess calories; F11.20 Opioid dependence, uncomplicated; J98.01 Acute bronchospasm; I48.0 Paroxysmal atrial fibrillation; I48.2 Chronic atrial fibrillation; D64.9 Anemia, unspecified; G89.29 Other chronic pain; I25.10 Atherosclerotic heart disease of native coronary artery without angina pectoris; I25.2 Old myocardial infarction; M54.17 Radiculopathy, lumbosacral region; S33.8XXA Sprain of other parts of lumbar spine and pelvis, initial encounter; Z79.01 Long term (current) use of anticoagulants; Z79.82 Long term (current) use of aspirin; Z79.899 Other long term (current) drug therapy; Z87.891 Personal history of nicotine dependence; K59.00 Constipation, unspecified; M62.830 Muscle spasm of back; M51.36 Other intervertebral disc degeneration, lumbar region

== ENCOUNTER 2017-09-02 09:05 | Inpatient (IN) | payer MEDICARE, MEDICAID ==
[2017-09-02 09:06] VITALS: PULSE 91
[2017-09-02 09:09] VITALS: BMI 27.3
[2017-09-02] MEDS ORDERED: Magnesium Sulfate 1 gm in D5W 1 GM/100 ML BAG IVPB ONE (09:35)
[2017-09-02] MEDS ORDERED: Morphine 2 mg/ml ISec IVP STA (09:35)
--- NOTE | 2017-09-02 09:38 | ED PDOC ---
Arrival/HPI - General Chief Complaint: Shortness Of Breath Time Seen by Provider: 09/02/17 09:32 Historian: Patient, Spouse, EMS - History of Present Illness Narrative History of Present Illness (Text): 09/02/17 09:37 pt p/w + few days onset of worsening sob, pt was just released from the hospital for COPD exacerbation/T9-T10 fracture 1 week ago; pt states he has not felt improvement; and last night with worsening SOB and inability to breath; pt states + intermittent fever, chills, no sweating; pt states his thoracic pain prevents him from breathing properly; pt's at home medications are not helping; pt had seen Dr Mota (pain specialists) 5 days ago but no improvement of pt's back pain; pt states + mild nasal congestions, easily fatigued/weakness, + decr appetite, and noted b/l leg swelling x 1-2 weeks; pt states no abd pain, no cp, no urinary/bowel changes, no loc, no Fall/trauma/sick contact, no travel; pt is here for further eval; pt's without other complaints PMD: Dr. Leach Pain management: Dr. Mota Time/Duration: Prior to Arrival Symptom Onset: Gradual Symptom Course: Unchanged Severity Level: Mild Activities at Onset: Light Context: Home Past Medical History - Provider Review Nursing Documentation Reviewed: Yes - Travel History Have you recently traveled outside [place] w/in the past 3 mons?: No - Past History Past History: No Previous - Infectious Disease Hx of Infectious Diseases: None - Tetanus Immunization Tetanus Immunization: Unknown - Past Medical History Past Medical History: Non-Contributing - Cardiac Hx Cardiac Disorders: Yes (NM) Hx Congestive Heart Failure: Yes Hx Hypertension: Yes - Pulmonary Hx Chronic Obstructive Pulmonary Disease (COPD): Yes - Neurological Hx Neurological Disorder: No - HEENT Hx HEENT Disorder: Yes (CONTACTS,WEARS RX GLASSES AT TIMES,H/O OF NOSEBLEEDS) Other/Comment: nosebleeds - Renal Hx Renal Disorder: No - Endocrine/Metabolic Other/Comment: steroid induced diabetes - Hematological/Oncological Hx Blood Disorders: Yes Hx Anemia: Yes (blood transfusion) - Integumentary Other/Comment: tatoo r arm - Musculoskeletal/Rheumatological Hx Falls: No - Gastrointestinal Hx Gastrointestinal Disorders: Yes (appendectomy,colon sx,gerd) - Genitourinary/Gynecological Hx Genitourinary Disorders: No Hx Reproductive Disorders: No - Psychiatric Hx Anxiety: Yes Hx Substance Use: No - Past Surgical History Past Surgical History: Non-Contributing - Surgical History Hx Appendectomy: Yes (53 yrs ago) Other/Comment: colon sx x2 as a child swallowed coins, bx and polypectomy, egd and colonoscopy - Anesthesia Hx Anesthesia: Yes Hx Anesthesia Reactions: No Hx Malignant Hyperthermia: No - Suicidal Assessment Feels Threatened In Home Enviroment: No Family/Social History - Physician Review Nursing Documentation Reviewed: Yes Family/Social History: No Known Family HX Smoking Status: Former Smoker Hx Alcohol Use: No Hx Substance Use: No 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 Hx Substance Use Treatment: Yes Allergies/Home Meds Allergies/Adverse Reactions: Allergies No Known Allergies Allergy (Verified 09/02/17 14:51) Home Medications: Home Meds Medication Instructions Recorded Confirmed Alprazolam [Xanax] 0.5 mg PO BID 08/13/17 09/02/17 Apixaban [Eliquis] 5 mg PO BID 08/13/17 09/02/17 Aspirin [Adult Aspirin Regimen] 81 mg PO DAILY 08/13/17 09/02/17 Furosemide [Lasix] 40 mg PO DAILY 08/13/17 09/02/17 Linaclotide [Linzess] 72 mcg PO DAILY 08/13/17 09/02/17 Oxycodone HCl [Oxycontin] 15 mg PO QID 08/13/17 09/02/17 Potassium Chloride [Klor-Con 10 meq PO DAILY 08/13/17 09/02/17 Sprinkle] Roflumilast [Daliresp] 500 mcg PO DAILY 08/13/17 09/02/17 Sotalol [Betapace] 120 mg PO BID 08/13/17 09/02/17 predniSONE [Prednisone] 20 mg PO BID 08/13/17 09/02/17 Ferrous Sulfate [Feosol] 325 mg PO BID 09/02/17 09/02/17 Pantoprazole [Protonix] 40 mg PO DAILY 09/02/17 09/02/17 tiZANidine [Zanaflex] 4 mg PO DAILY 09/02/17 09/02/17 Review of Systems - Physician Review All systems were reviewed & negative as marked: Yes - Review of Systems Constitutional: Weight Change, Fevers. absent: Night Sweats Eyes: absent: Vision Changes ENT: Sore Throat, Sinus Congestion Respiratory: SOB Cardiovascular: Chest Pain Gastrointestinal: Appetite Changes (decreased appetite). absent: Abdominal Pain , Stool Changes Genitourinary Male: absent: Urinary Output Changes Endocrine: absent: Diaphoresis Physical Exam Vital Signs Reviewed: Yes Vital Signs Temp Pulse Resp BP Pulse Ox 09/02/17 11:17 85 20 103/62 93 L 09/02/17 10:41 91 H 20 105/42 L 95 09/02/17 10:15 87 22 106/59 L 96 09/02/17 10:02 24 95 09/02/17 09:53 109/57 L 09/02/17 09:06 99.8 F H 101 H 24 103/54 L 92 L Temperature: Febrile Blood Pressure: Hypotensive Pulse: Tachycardic Respiratory Rate: Tachypneic Appearance: Positive for: Well-Appearing, Non-Toxic, Uncomfortable, Other ( uncomfortable, alert/awake, GCS = 15, oriented x 3, mild distress due to resp fatigued; cooperative, follows command with ease) Pain Distress: None Mental Status: Positive for: Alert and Oriented X 3 - Systems Exam Head: Present: Atraumatic, Normocephalic, Other (mild bi-temporal wasting) Pupils: Present: PERRL, Other (no nystagmus, no photophobia, sclera anicteric; visual field intact b/l) Extroacular Muscles: Present: EOMI Conjunctiva: Present: Normal Ears: Present: Normal Mouth: Present: Dry, Other (fair dentitions, dry oral mucosa; no drooling/ stridor, no exudate/lesions) Pharnyx: Present: Normal Nose (External): Present: Atraumatic Nose (Internal): Present: Normal Inspection Neck: Present: Normal Range of Motion, Trachea Midline. No: MIDLINE TENDERNESS Respiratory/Chest: Present: Respiratory Distress, Other (poor respiration/ aeration; faint wheezing noted bibasiliar; + tachypenia, no accessory muscle use noted). No: Accessory Muscle Use Cardiovascular: Present: Regular Rate and Rhythm, Normal S1, S2. No: Murmurs Abdomen: Present: Normal Bowel Sounds, Other (well nourished male, no focal tenderness, no masses/rebound/guarding/rigidity). No: Tenderness, Distention, Peritoneal Signs Rectal: Present: Other (guiacac positve - slightly darken brown stool ) Back: Present: Normal Inspection. No: Midline Tenderness Upper Extremity: Present: Normal Inspection, Normal ROM, NORMAL PULSES, Neurovascularly Intact, Capillary Refill < 2s. No: Cyanosis, Edema Lower Extremity: Present: Normal Inspection, NORMAL PULSES, Swelling (pitting edema +1-2/5; neurovasc intact b/l, strength 5/5 grossly intact in all limbs), Neurovascularly Intact. No: Edema Neurological: Present: GCS=15, CN II-XII Intact, Speech Normal Skin: Present: Warm, Dry, Other (cap refill ~ 1-2 sec, + mild pallor noted). No : Rashes Psychiatric: Present: Alert, Oriented x 3, Normal Insight, Normal Concentration Medical Decision Making ED Course and Treatment: 09/02/17 11:00 Impression: A 57 year old male with SOB I have considered all differential diagnoses regarding patients chief medical complaints/clinical findings which include but are not limited to: r/o ACS/NM , r/o CHF; r/o infection; r/o copd exacerbation Plan: -- labs -- ekg -- xray -- Reassess and disposition Progress Notes: 09/02/17 11:[address] Leach, who is aware and agrees to admission. Requests to contact track laminating machine tender for ICU placement. to contact Dr Samuel/Dennis/Jami for further consultations (cards/heme/GI) 09/02/17 11:[address] Villegas track laminating machine tender, made aware and will evaluate patient at bedside. 12:00 - pt is doing well currently on the bipap machine, pt states he is breathing easier pt denied pain currently pt is made aware of his medical results agrees with admission Re-evaluation Time: 12:00 Reassessment Condition: Improving,but remains with symptoms - Critical Care Critical Care Minutes: 45 minutes Critical Care Time: Excluding Proc Time Narrative Critical Care (Text): 09/02/17 15:40 critical care time: 45min, excluding procedure time, excluding time teaching residents/students/mid-level providers; including initial eval/diagnosis, diagnostic interpretation, re-eval, consultations, final disposition - Lab Interpretations Lab Results: 09/02/17 09:30 09/02/17 09:30 Lab Results 09/02/17 11:40: Blood Type O POSITIVE, Antibody Screen Negative, Crossmatch See Detail, BBK History Checked Patient has bt 09/02/17 11:29: Urine Color Yellow, Urine Appearance Clear, Urine pH 6.0, Ur Specific [place] 1.015, Urine Protein Negative, Urine Glucose (UA) Negative, Urine Ketones Negative, Urine Blood Negative, Urine Nitrate Positive H, Urine Bilirubin Negative, Urine Urobilinogen 0.2, Ur Leukocyte Esterase Small H, Urine RBC 0 - 2, Urine WBC 20 - 25, Ur Epithelial Cells 1 - 3, Urine Bacteria Many 09/02/17 09:30: Influenza Typ A,B (EIA) Negative for flu a/b 09/02/17 09:30: Sodium 135, Chloride 86 L, Potassium 2.9 L* D, Carbon Dioxide 38 H, Anion Gap 14, BUN 13, Creatinine 0.5 L, Est GFR ( Amer) > 60, Est GFR (Non-Af Amer) > 60, Random Glucose 119 H, Calcium 8.9, Total Bilirubin 0.4, AST 24, ALT 36, Alkaline Phosphatase 110, Lactate Dehydrogenase 477, Total Creatine Kinase < 20 L, Troponin I < 0.01, NT-Pro-B Natriuret Pep 702 H, Total Protein 6.0, Albumin 3.3, Globulin 2.6, Albumin/Globulin Ratio 1.3 09/02/17 09:30: pO2 25 L, VBG pH 7.41, VBG pCO2 72.0 H*, VBG HCO3 45.6 H, VBG Total CO2 47.8 H, VBG O2 Sat (Calc) 48.8, VBG Base Excess 17.1 H, VBG Potassium 3.0 L, Sodium 134.0, Chloride 93.0 L, Glucose 121 H, Lactate 1.9, FiO2 21.0, Venous Blood Potassium 3.0 L 09/02/17 09:30: WBC 7.8 D, RBC 2.92 L, Hgb 7.2 L D, Hct 24.2 L, MCV 82.9 D, MCH 24.7 L, MCHC 29.8 L, RDW 20.1 H, Plt Count 177, MPV 9.1, Gran % 93.5 H, Lymph % (Auto) 3.2 L, [facility] % (Auto) 3.1, Eos % (Auto) 0.1 L, Baso % (Auto) 0.1, Gran # 7.27 H, Lymph # (Auto) 0.3 L, [facility] # (Auto) 0.2, Eos # (Auto) 0.0, Baso # (Auto) 0.01, Neutrophils % (Manual) 93 H, Lymphocytes % (Manual) 5 L, Monocytes % (Manual) 2, Platelet Evaluation Normal, Anisocytosis (manual) Slight I have reviewed the lab results: Yes Interpretation: Abnormal lab values (decr h/h, decr k, elevated BNP) - RAD Interpretation Narrative RAD Interpretations (Text): 09/02/17 10:34 Chest X-ray Soaker Meat : Dr. Daniels, [place] الع[place] Report Date : 09/02/2017 10:26:31 HISTORY:severe sob COMPARISON:No prior. FINDINGS: LUNGS:No active pulmonary disease. PLEURA:No significant pleural effusion identified, no pneumothorax apparent. CARDIOVASCULAR:There is mild to moderate aortic tortuosity. The heart is top- normal in size OSSEOUS STRUCTURES:No significant abnormalities. VISUALIZED UPPER ABDOMEN:Normal. OTHER FINDINGS: None. IMPRESSION: No active disease. Radiology Orders: 09/02/17 09:33 CHEST PORTABLE [RAD] Stat Affiliate Marketing Manager: Radiologist - EKG Interpretation EKG Interpretation (Text): 09/02/17 15:45 NSR at 95 bpm, normal axis, no ectopy, poor baseline, non-specific st-t changes , ABNL EKG; no gross changes compare with old ekg 07/2017 Interpreted by ED Physician: Yes Type: 12 lead EKG Comparison: Similar to previous EKG - Medication Orders Current Medication Orders: Alprazolam (Xanax) 0.25 mg PO BID [facility] Stop: 09/09/17 18:01 Alprazolam (Xanax) 0.25 mg PO BID ERNESTINA PRN Reason: Protocol Stop: 09/09/17 18:01 Arformoterol Tartrate (Brovana) 15 mcg IH [id number] [facility] Aspirin (Ecotrin) 81 mg PO DAILY ERNESTINA Ferrous Sulfate (Feosol) 324 mg PO TID [facility] Last Admin: 09/02/17 14:11 Dose: 324 mg Furosemide (Lasix) 40 mg IVP DAILY ERNESTINA Pantoprazole Sodium (Protonix 40mg Ivpb) 40 mg in 100 mls @ 20 mls/hr IVPB .Q5H [facility] Last Admin: 09/02/17 14:13 Dose: 20 mls/hr eMAR Start Stop Document 09/02/17 14:13 RAMOM (Rec: 09/02/17 14:13 RAMOM [facility] [id number]) Intravenous Solution Start Date 09/02/17 Start Time 14:15 Levalbuterol HCl (Xopenex) 1.25 mg IH [id number] ERNESTINA Methylprednisolone (Solu-Medrol) 40 mg IVP Q12 ERNESTINA Montelukast Sodium (Singulair) 10 mg PO HS [facility] Oxycodone HCl (Oxycodone Immediate Release Tab) 15 mg PO Q6H PRN PRN Reason: Pain, severe (8-10) Last Admin: 09/02/17 14:11 Dose: 15 mg Roflumilast (Daliresp) 500 mcg PO DAILY [facility] Last Admin: 09/02/17 14:10 Dose: 500 mcg Roflumilast (Daliresp) 500 mcg PO DAILY [facility] Sotalol HCl (Betapace) 120 mg PO BID [facility] Tizanidine HCl (Zanaflex) 4 mg PO TID [facility] Last Admin: 09/02/17 14:11 Dose: 4 mg Discontinued Medications Albuterol/Ipratropium (Duoneb 3 Mg/0.5 Mg (3 Ml) Ud) 3 ml IH Q15M ERNESTINA Stop: 09/02/17 10:16 Last Admin: 09/02/17 10:55 Dose: 3 ml Aspirin (Ecotrin) 81 mg PO STAT STA Stop: 09/02/17 09:33 Last Admin: 09/02/17 09:47 Dose: 81 mg Diazepam (Valium) 2 mg PO ONCE ONE PRN Reason: Protocol Stop: 09/02/17 09:36 Last Admin: 09/02/17 09:47 Dose: 2 mg Furosemide (Lasix) 40 mg IVP STAT STA Stop: 09/02/17 09:33 Last Admin: 09/02/17 09:53 Dose: 40 mg MAR Blood Pressure Document 09/02/17 09:53 MS (Rec: 09/02/17 09:54 [id number]) Blood Pressure Blood Pressure (100/60-150/90) 109/57 IVP Administration Document 09/02/17 09:53 MS (Rec: 09/02/17 09:54 MS [facility] [id number]) Charges for Administration # of IVP Administrations 1 Magnesium Sulfate/Dextrose (Magnesium Sulfate 1 Gm/100 Ml D5w) 1 gm in 100 mls @ 100 mls/hr IVPB ONCE ONE Stop: 09/02/17 10:34 Last Admin: 09/02/17 09:54 Dose: 100 mls/hr eMAR Start Stop Document 09/02/17 09:54 MS (Rec: 09/02/17 09:54 MS [facility] [id number]) Intravenous Solution Start Date 09/02/17 Start Time 09:54 End Date 09/02/17 End time 10:54 Total Infusion Time 60 Methylprednisolone (Solu-Medrol) 125 mg IVP STAT STA Stop: 09/02/17 09:35 Last Admin: 09/02/17 09:51 Dose: 125 mg IVP Administration Document 09/02/17 09:51 MS (Rec: 09/02/17 09:53 MS [facility] [id number]) Charges for Administration # of IVP Administrations 1 Methylprednisolone (Solu-Medrol) 40 mg IM STAT STA Stop: 09/02/17 13:33 Last Admin: 09/02/17 14:00 Dose: Morphine Sulfate (Morphine) 4 mg IVP STAT STA Stop: 09/02/17 09:40 Last Admin: 09/02/17 09:57 Dose: 4 mg IVP Administration Document 09/02/17 09:57 MS (Rec: 09/02/17 09:57 MS [facility] [id number]) Charges for Administration # of IVP Administrations 1 Pantoprazole Sodium (Protonix Inj) 40 mg IVP STAT STA Stop: 09/02/17 10:55 Last Admin: 09/02/17 11:24 Dose: 40 mg IVP Administration Document 09/02/17 11:24 MS (Rec: 09/02/17 11:24 MS [facility] [id number]) Charges for Administration # of IVP Administrations 1 Potassium Chloride (Klor-Con 10) 20 meq PO STAT STA Stop: 09/02/17 10:39 Last Admin: 09/02/17 10:56 Dose: 20 meq - Scribe Statement The provider has reviewed the documentation as recorded by the Rigoberto Tomlinson Provider Scribe Attestation: All medical record entries made by the Scribe were at my direction and personally dictated by me. I have reviewed the chart and agree that the record accurately reflects my personal performance of the history, physical exam, medical decision making, and the department course for this patient. I have also personally directed, reviewed, and agree with the discharge instructions and disposition. Disposition/Present on Arrival - Present on Arrival Any Indicators Present on Arrival: No History of DVT/PE: No History of Uncontrolled Diabetes: No Urinary Catheter: No History of Decub. Ulcer: No History Surgical Site Infection Following: None - Disposition Have Diagnosis and Disposition been Completed?: Yes Diagnosis: COPD exacerbation, Anemia, GI bleed, Fever, Respiratory distress Disposition: HOSPITALIZED Disposition Time: 12:00 Patient Plan: Admission, ICU Condition: STABLE
[2017-09-02] MEDS ORDERED: Morphine 5 MG/ML SYRINGE IVP STA (09:39)
[2017-09-02 09:50] LABS: BASO # 0.01 K/mm3 (0.0-2.0); BASO % 0.1 % (0.0-3.0); EOS % 0.1 % (1.5-5.0); GRAN # 7.27 (1.4-6.5); GRAN % 93.5 % (50.0-68.0); LYMPH # 0.3 (1.2-3.4); LYMPH % 3.2 % (22.0-35.0); MEAN CELL VOLUME 82.9 fl (80.0-105.0); MEAN CORPUSCULAR HEMOGLOBIN 24.7 pg (25.0-35.0); MEAN CORPUSCULAR HGB CONC 29.8 g/dl (31.0-37.0); MEAN PLATELET VOLUME 9.1 fl (7.0-11.0); MONO # 0.2 (0.1-0.6); MONO % 3.1 % (1.0-6.0); PLATELET COUNT 177 10^3/uL (120.0-450.0); RBC 2.92 10^6/uL (3.5-6.1); RED CELL DISTRIBUTION WIDTH 20.1 % (11.5-14.5); WHITE BLOOD COUNT 7.8 10^3/ul (4.5-11.0)
[2017-09-02 09:54] LABS: HEMOGLOBIN 7.2 g/dL (14.0-18.0)
[2017-09-02] MEDS: Albuterol-Ipratrop 3 mg / 0.5 (3 ml) UD IH SCH ×3 (09:57→10:55)
[2017-09-02 09:59] LABS: VENOUS BLOOD GAS BASE EXCESS 17.1 mmol/L (0.0-2.0); VENOUS BLOOD GAS PO2 25 mm/Hg (30-55); VENOUS BLOOD PH 7.41 (7.32-7.43)
[2017-09-02 10:19] LABS: B-TYPE NATRIURETIC PEPTIDE 702 pg/mL (0-450); TROPONIN I < 0.01 ng/mL
--- NOTE | 2017-09-02 10:27 | RAD ---
HISTORY: severe sob COMPARISON: No prior. FINDINGS: LUNGS: No active pulmonary disease. PLEURA: No significant pleural effusion identified, no pneumothorax apparent. CARDIOVASCULAR: There is mild to moderate aortic tortuosity. The heart is top-normal in size OSSEOUS STRUCTURES: No significant abnormalities. VISUALIZED UPPER ABDOMEN: Normal. OTHER FINDINGS: None. IMPRESSION: No active disease.
[2017-09-02 10:30] LABS: LYMPHOCYTE 5 % (22.0-35.0); MONOCYTE 2 % (1.0-6.0); NEUTROPHIL 93 % (50.0-70.0); PLATELET ESTIMATE NORMAL (NORMAL)
[2017-09-02 10:31] LABS: ALB/GLOB RATIO 1.3 (1.1-1.8); ALBUMIN 3.3 g/dL (3.0-4.8); ALT/SGPT 36 U/L (7-56); ANISOCYTOSIS SLIGHT; AST/SGOT 24 U/L (17-59); BLOOD UREA NITROGEN 13 mg/dL (7-21); CALCIUM 8.9 mg/dL (8.4-10.5); GFR AFRICAN-AMERICAN > 60; GFR NON-AFRICAN AMERICAN > 60
[2017-09-02] MEDS ORDERED: Potassium Chloride 10 mEq ER Tab PO STA (10:38)
[2017-09-02 12:16] LABS: URINE BILIRUBIN NEGATIVE (NEGATIVE); URINE BLOOD NEGATIVE (NEGATIVE); URINE GLUCOSE (UA) NEGATIVE (NEGATIVE); URINE LEUKOCYTE ESTERASE SMALL Leu/uL (NEGATIVE); URINE NITRATE POSITIVE (NEGATIVE); URINE PROTEIN NEGATIVE mg/dL (<30 mg/dL); URINE UROBILINOGEN 0.2 E.U./dL (<1 E.U./dL)
[2017-09-02 12:19] LABS: URINE APPEARANCE CLEAR (CLEAR); URINE COLOR YELLOW (YELLOW)
[2017-09-02 12:32] LABS: URINE BACTERIA MANY (NEG); URINE RBC 0 - 2 /hpf (0-2); URINE WBC 20 - 25 /hpf (0-6)
[2017-09-02] MEDS ORDERED: MethylPREDNISolone 40 mg Vial IM STA (13:32)
[2017-09-02] MEDS: oxyCODONE 15 mg Immediate Release Tab PO PRN ×2 (14:11→19:55)
[2017-09-02] MEDS: Pantoprazole 40mg/100mL NS 40 MG/100 ML BAG IVPB SCH ×2 (14:13→20:30)
[2017-09-02 14:37] LABS: BASO # 0.01 K/mm3 (0.0-2.0); BASO % 0.2 % (0.0-3.0); GRAN # 4.38 (1.4-6.5); GRAN % 94.4 % (50.0-68.0); LYMPH # 0.1 (1.2-3.4); MEAN CELL VOLUME 83.1 fl (80.0-105.0); MEAN CORPUSCULAR HGB CONC 30.1 g/dl (31.0-37.0); MEAN PLATELET VOLUME 8.6 fl (7.0-11.0); MONO # 0.1 (0.1-0.6); MONO % 2.4 % (1.0-6.0); RBC 2.72 10^6/uL (3.5-6.1); WHITE BLOOD COUNT 4.6 10^3/ul (4.5-11.0)
--- NOTE | 2017-09-02 14:39 | CARD ---
APPROVED REPORT EKG Measurement Heart [id number] <Conclusion> Normal sinus rhythm Prolonged QT Abnormal ECG
[2017-09-02 14:44] LABS: HEMOGLOBIN 6.8 g/dL (14.0-18.0)
[2017-09-02] MEDS ORDERED: Pneumococcal 23-Valent Vaccine IM ONE (16:16)
[2017-09-02] MEDS ORDERED: Influenza Vaccine 60 mcg/0.5 mL SYR (4YR UP) IM ONE (16:16)
[2017-09-02] MEDS ORDERED: SOTALOL 120 MG PO SCH (18:00)
[2017-09-02 19:26] LABS: BASO # 0.01 K/mm3 (0.0-2.0); BASO % 0.2 % (0.0-3.0); GRAN # 3.96 (1.4-6.5); GRAN % 92.3 % (50.0-68.0); LYMPH # 0.2 (1.2-3.4); LYMPH % 4.2 % (22.0-35.0); MEAN CELL VOLUME 82.8 fl (80.0-105.0); MEAN CORPUSCULAR HEMOGLOBIN 25.6 pg (25.0-35.0); MEAN CORPUSCULAR HGB CONC 30.9 g/dl (31.0-37.0); MONO # 0.1 (0.1-0.6); MONO % 3.3 % (1.0-6.0); RBC 2.97 10^6/uL (3.5-6.1); RED CELL DISTRIBUTION WIDTH 18.4 % (11.5-14.5); WHITE BLOOD COUNT 4.3 10^3/ul (4.5-11.0)
[2017-09-02 19:30] LABS: HEMOGLOBIN 7.6 g/dL (14.0-18.0)
[2017-09-02] MEDS ORDERED: Sodium Chloride 0.9% 1,000 ML IV SCH (19:45)
[2017-09-02] MEDS: Levalbuterol 1.25 MG/3 ML Inhal Soln UD IH SCH (19:52)
[2017-09-02] MEDS: Arformoterol 15 mcg/2 ml Inh Sol IH SCH (19:52)
[2017-09-02] MEDS: cefTRIAXone 1 gm 1 GM/100 ML BAG IVPB SCH (19:58)
[2017-09-02] MEDS ORDERED: MethylPREDNISolone 40 mg Vial IV SCH (22:00)
[2017-09-02] MEDS: MethylPREDNISolone 40 mg Vial IVP SCH (22:09)
[2017-09-02] MEDS ORDERED: oxyCODONE 15 mg Immediate Release Tab PO STA (22:44)
[2017-09-03] MEDS: Pantoprazole 40mg/100mL NS 40 MG/100 ML BAG IVPB SCH ×4 (01:30→20:40)
--- NOTE | 2017-09-03 01:35 | CON ---
DATE: 09/02/2017 DIRECTOR OF KIDS CONSULTATION REQUESTING PHYSICIAN: Dr. Bowman. CHIEF COMPLAINT: Patient presented with worsening shortness of breath, feeling very weak, intermittent fevers, sore throat and was noted in the emergency room to have anemia and heme-positive stools. HISTORY OF PRESENT ILLNESS: Mr. Cano is a 57-year-old male with a history of COPD, respiratory failure, hypoxia for which he is on home oxygen 3 liters per minute, dyspnea, congestive heart failure, anemia, atrial fibrillation with RVR for which he had an ablation. Patient has spinal compressions of his thoracic spine and has chronic pain. He also carries a diagnosis of anemia as well as congestive heart failure, has had myocardial infarctions in the past as well as has a history of diabetes and hypertension. The patient, at this time, is awake and alert, complaining that he continues to have pain. He did have dark stools this morning and they were heme-positive in the emergency room. He presented with significant shortness of breath and respiratory failure requiring BiPAP and O2 support. The patient continued to complain of sore throat, but note his vitals were stable at this time. He is scheduled for 1 unit of packed red blood cells. PAST MEDICAL HISTORY: As above. ALLERGIES: HE HAS NO KNOWN ALLERGIES. CURRENT MEDICATIONS: His current medications can be evaluated as per the nurse's intake form. SOCIAL HISTORY: Patient is a former smoker. No EtOH use and no drug abuse, but the patient did take heroin and opioids previously. FAMILY HISTORY: Noncontributory. REVIEW OF SYSTEMS: CONSTITUTIONAL: Patient did present with a history of fever and has had some weight loss. HEENT: He complains of some sore throat. RESPIRATORY: The patient presented with shortness of breath, occasional cough. CARDIOVASCULAR: He did have some chest pain. GASTROINTESTINAL: He had decreased appetite, but no nausea or vomiting. GENITOURINARY: All negative. NEUROPSYCHIATRIC: All negative. ENDOCRINE: All negative. IMMUNOLOGIC: All negative. HEMATOLOGIC: History of anemia. INTEGUMENTARY: All negative. PHYSICAL EXAMINATION: VITAL SIGNS: Note that his temperature is 99.8, his pulse is 101, respirations of 24, BP is 103/54. Note that his pulse ox is 92% with BiPAP and O2 support. HEENT: Head is atraumatic, normocephalic. Eyes reactive to light. Ear, nose and throat seemed to be within normal limits. NECK: His neck is supple. No JVD. No thyroid enlargement, no lymph nodes. HEART: Has regular rate and rhythm. Normal S1, S2, but tachycardic. LUNGS: Reveal decreased breath sounds at both bases with occasional rhonchi. ABDOMEN: Soft. Decreased bowel sounds. No obvious organomegaly noted. GENITALIA AND RECTAL: Deferred. MUSCULOSKELETAL: No joint deformities. EXTREMITIES: Reveal 1+ lower extremity edema. NEUROLOGIC: He seemed to be grossly intact. LABORATORY DATA: As far as his laboratories, his white count is 7.8, hemoglobin is 7.2, hematocrit 24.2 with platelets of 177,000. Sodium is 135, potassium 2.9, chloride 86, CO2 of 38 with a BUN of 13, creatinine of 0.5 and glucose of 119. As far as his chest x-ray, it shows no obvious infiltrates. IMPRESSION: My impression is that this patient has acute gastrointestinal bleed with anemia, has exacerbation of his chronic obstructive pulmonary disease and is oxygen dependent with respiratory failure. Patient has history of congestive heart failure, is home oxygen dependent. He also has atrial fibrillation and with history of rapid ventricular response and cardiac ablation. He has chronic thoracic pain and thoracic spine compression. The patient also carries a diagnosis of hypertension, diabetes, anxiety reaction and has had myocardial infarctions in the past. PLAN: As far as our plan, we will consult Pulmonary, Cardiac as well as GI and Hematology. The patient will continue his pain meds of oxycodone. We will start the patient on Protonix and he will get transfused packed red blood cells and we will follow his hemoglobin closely. The patient also will continue his Brovana and his Daliresp and Singulair. We will continue with the BiPAP and O2 support and follow his O2 saturations. The patient will get Lasix for appropriate diuresis and we will continue to treat aggressively and follow closely along with the other consultants and the primary care doctor. Husam Villegas MD
[2017-09-03 02:08] LABS: MEAN CELL VOLUME 82.4 fl (80.0-105.0); MEAN CORPUSCULAR HEMOGLOBIN 25.9 pg (25.0-35.0); MEAN CORPUSCULAR HGB CONC 31.5 g/dl (31.0-37.0); MEAN PLATELET VOLUME 9.1 fl (7.0-11.0); RBC 3.47 10^6/uL (3.5-6.1); RED CELL DISTRIBUTION WIDTH 17.8 % (11.5-14.5); WHITE BLOOD COUNT 5.6 10^3/ul (4.5-11.0)
[2017-09-03] MEDS: Levalbuterol 1.25 MG/3 ML Inhal Soln UD IH SCH ×4 (02:16→19:45)
--- NOTE | 2017-09-03 02:50 | HP ---
HISTORY OF PRESENT ILLNESS: The patient is 57 years old, known to me from multiple previous admissions, came to emergency room, not feeling well, tired, lethargic, short of breath, no energy. The patient called me yesterday evening. He has been having intermittent rectal bleeding for almost a week. Patient has been on Eliquis, but yesterday evening, he had more blood than usual, so he was advised to come to emergency room for further evaluation. Denies any fever or chills. Does complain of some generalized weakness and shortness of breath. PAST MEDICAL HISTORY: Significant for: 1. Congestive heart failure. 2. Emphysema. 3. Chronic AFib. 4. Recent ablation for chronic AFib in [facility]. 5. Intractable back pain secondary to T4, T10 compression fracture that was diagnosed last week. 6. Chronic anemia, had upper and lower endoscopy and colonoscopy, followed by capsule colonoscopy done 2 years ago. He has been on chronic intravenous infusion. Patient states he has been taking pain medications, oxycodone 15 mg every 4 to 6 hours with no relief. Recently saw Dr. Mota also for the same pain management. ALLERGIES: NOT ALLERGIC TO ANY MEDICATION. MEDICATIONS AT HOME: He is on Zanaflex 4 mg 3 times a day, ferrous sulfate 325 daily, Protonix 40 daily, aspirin 81 daily, sotalol 120 twice a day, Lasix 40 mg daily, Eliquis 4 mg twice a day, Xanax 0.5 twice a day, Daliresp 500 mcg daily, potassium 10 mEq daily, oxycodone 15 mg 4 times a day, Linzess 72 daily, and prednisone 20 mg twice a day. SOCIAL HISTORY: He used to be a heavy smoker. He uses drugs presently, has been on methadone, but recently tapered down. He currently is on oxycodone. He quit smoking in 2013, has been smoking a few cigarettes here and there, but was a heavy smoker for 35 years. Does not drink. REVIEW OF SYSTEMS: Generalized weakness, shortness of breath, not feeling well. PHYSICAL EXAMINATION: GENERAL: He is awake and alert. Has BiPAP on. VITAL SIGNS: He is afebrile. Pulse 103, respirations 20, blood pressure 95/54. LUNGS: Bilateral fair airflow. Diffusely decreased breath sounds. HEART: S1 and S2 audible. ABDOMEN: Soft, obese, and nontender. No rebound. No guarding. NEUROLOGIC: Patient is awake and alert, able to communicate. EXTREMITIES: Bilateral leg +1 edema. ASSESSMENT: 1. Symptomatic anemia. 2. Congestive heart failure. 3. Chronic obstructive pulmonary disease exacerbation. 4. Rectal bleeding, etiology unknown. 5. Chronic atrial fibrillation, recently had ablation done, currently in sinus rhythm. 6. Chronic anemia. 7. Non-ischemic cardiomyopathy. PLAN: Patient is currently on sotalol. I will hold off his Eliquis and he will be given two blood transfusions. We will diurese him by 40 mg Lasix everyday. We will monitor his electrolytes. Start him on Xopenex. We will follow up H and H in the a.m. Cardiology consult by Dr. Samuel. GI consult by Dr. Bansal. We will follow this patient. Ross Bowman MD
[2017-09-03] MEDS: oxyCODONE 15 mg Immediate Release Tab PO PRN ×5 (03:30→22:11)
[2017-09-03] MEDS ORDERED: Levalbuterol 1.25 MG/3 ML Inhal Soln UD IH STA (04:08)
[2017-09-03] MEDS ORDERED: Levalbuterol 1.25 MG/3 ML Inhal Soln UD ONE (04:11)
[2017-09-03 06:25] LABS: BASO # 0.01 K/mm3 (0.0-2.0); BASO % 0.2 % (0.0-3.0); GRAN # 5.48 (1.4-6.5); GRAN % 91.3 % (50.0-68.0); HEMOGLOBIN 9.4 g/dL (14.0-18.0); LYMPH # 0.3 (1.2-3.4); LYMPH % 5.5 % (22.0-35.0); MEAN CORPUSCULAR HEMOGLOBIN 26.2 pg (25.0-35.0); MEAN CORPUSCULAR HGB CONC 31.5 g/dl (31.0-37.0); MEAN PLATELET VOLUME 9.2 fl (7.0-11.0); MONO # 0.2 (0.1-0.6); RBC 3.59 10^6/uL (3.5-6.1); RED CELL DISTRIBUTION WIDTH 18.1 % (11.5-14.5)
[2017-09-03 06:49] LABS: ALB/GLOB RATIO 1.2 (1.1-1.8); ALT/SGPT 33 U/L (7-56); AST/SGOT 24 U/L (17-59); BLOOD UREA NITROGEN 14 mg/dL (7-21); CALCIUM 9.1 mg/dL (8.4-10.5); GFR AFRICAN-AMERICAN > 60; GFR NON-AFRICAN AMERICAN > 60; MAGNESIUM 2.3 mg/dL (1.7-2.2)
[2017-09-03] MEDS ORDERED: Albuterol-Ipratrop 3 mg / 0.5 (3 ml) UD IH STA (06:50)
[2017-09-03] MEDS: Arformoterol 15 mcg/2 ml Inh Sol IH SCH ×2 (07:21→19:45)
--- NOTE | 2017-09-03 07:54 | CON ---
DATE: REFERRING PHYSICIAN: Ross Bowman MD REASON FOR CONSULT: Respiratory failure. HISTORY OF PRESENT ILLNESS: This is a 57-year-old gentleman with known history of chronic obstructive lung disease, also had T9-T10 compression fracture, recently discharged from the hospital with COPD exacerbation outpatient, been followed by Dr. Mota for pain management without much relief, admitted in intensive care unit, placed on noninvasive ventilation with high dose of steroids, antibiotics, inhaled bronchodilator; feels a little better, has a cough, shortness of breath and back pain. No nausea, no vomiting. No diarrhea, leg pain, or leg swelling. PAST MEDICAL HISTORY: Again, significant for chronic obstructive lung disease, recent T9-T10 compression fracture, chronic pain syndrome, history of [place] and heart failure, hypertension, steroid-induced hyperglycemia, anemia. FAMILY HISTORY: Significant cardiopulmonary disease reported. SOCIAL HISTORY: Former smoker. Denies any alcohol use. ALLERGIES: None known. MEDICATIONS: He is on sotalol 120 mg twice a day, Brovana inhaled twice a day, Daliresp 500 mcg daily, Ecotrin 81 mg daily, ferrous sulfate 324 mg three times a day, oxycodone immediate release 50 mg q. 6h. p.r.n., Protonix 40 mg IV daily, Rocephin 1 g daily, Singulair 10 mg daily, IV fluid normal saline 100 mL/hour, Solu-Medrol 40 mg q. 12h., Tylenol p.r.n., Xanax 0.25 mg twice a day, Xopenex inhaled q. 6h., Zanaflex 4 mg three times a day REVIEW OF SYSTEMS: No headache or rhinitis. Has cough, shortness of breath. No chest pain. Has mid back discomfort. No nausea, no vomiting or diarrhea, dysuria, leg pain or leg swelling. PHYSICAL EXAMINATION GENERAL: Lying in the bed, on noninvasive ventilation. VITAL SIGNS: Temperature is 98, heart rate 69, respiratory rate is 20, blood pressure is 102/60, pulse ox 95% on BiPAP with supplemental oxygen. HEENT: Moist mucous membrane. Crowded airway. NECK: Supple. No JVD. LUNGS: Has crackles and scattered rhonchi with wheezing. HEART: S1 and S2. ABDOMEN: Soft, nontender. No organomegaly. EXTREMITIES: There is no edema. NEUROLOGICAL: Awake and follows simple commands. LABORATORY DATA: Shows hemoglobin of 7.6, hematocrit 24.6, WBC 4.3, platelet count is 155,000. VBG show pH 7.41, pCO2 of 72, O2 was 25. Sodium 135, potassium 2.9, chloride 86, bicarbonate 38, BUN 13, creatinine 0.5, glucose 119, calcium 8.9, total bilirubin 0.4, AST 24, ALT 36, alkaline phosphatase is 110. Albumin is 3.3. ProBNP 702. Urinalysis shows WBCs 20 to 25. Influenza A and B negative. Chest x-ray shows no active pulmonary disease. EKG was done, which shows normal sinus rhythm. Prolonged QT interval. Thoracic spine x-ray which was done last admission which was on August 22 shows moderate compression fracture seen at T9-T10. Had echocardiogram done in May 2017, which shows a right ventricular systolic pressure of 49. Left ventricle of normal size. There is normal left ventricular wall thickening. Left ventricle systolic function is borderline. There is normal LV segmental wall motion and mild diastolic dysfunction for which had a CT angio done last year which showed mild central lobular emphysema in the lungs and a bronchial thickening most compatible with chronic reactive airway. IMPRESSION AND PLAN: Severe anemia, respiratory failure, chronic obstructive lung disease, history of T9-T10 compression fracture, coronary artery disease, history of atrial fibrillation. Pulmonary point of view, continue BiPAP, IV and inhaled bronchodilator, and GI consult, transfusion. We will also send B12, folate, iron studies; placed on inhibitors, aspirin as well as anticoagulation is on hold. The patient already started on Protonix drip. Followup H and H closely. May need surgical followup. We will follow up with you. Shaila Mercado MD
[2017-09-03] MEDS: cefTRIAXone 1 gm 1 GM/100 ML BAG IVPB SCH (09:06)
[2017-09-03] MEDS: MethylPREDNISolone 40 mg Vial IVP SCH ×2 (09:06→18:31)
--- NOTE | 2017-09-03 09:16 | RAD ---
HISTORY: Evaluate for vascular congestion COMPARISON: 09/02/2017 FINDINGS: LUNGS: No active pulmonary disease. PLEURA: No significant pleural effusion identified, no pneumothorax apparent. CARDIOVASCULAR: Normal. OSSEOUS STRUCTURES: No significant abnormalities. VISUALIZED UPPER ABDOMEN: Normal. OTHER FINDINGS: None. IMPRESSION: No active disease.
[2017-09-03] MEDS: Dexmedetomidine 400mcg/100mL 400 MCG/100 ML BOTTLE IV PRN ×3 (11:04→22:23)
--- NOTE | 2017-09-03 11:46 | CARD ---
APPROVED REPORT EKG Measurement Heart [id number] <Conclusion> Normal sinus rhythm Normal ECG
[2017-09-03] MEDS ORDERED: Potassium Chloride 20 mEq ER Tab PO ONE (13:44)
[2017-09-03 14:14] LABS: GRAN # 6.73 (1.4-6.5); GRAN % 92.9 % (50.0-68.0); HEMOGLOBIN 9.3 g/dL (14.0-18.0); LYMPH # 0.3 (1.2-3.4); LYMPH % 3.9 % (22.0-35.0); MEAN CELL VOLUME 83.1 fl (80.0-105.0); MEAN CORPUSCULAR HEMOGLOBIN 25.8 pg (25.0-35.0); MEAN CORPUSCULAR HGB CONC 31.1 g/dl (31.0-37.0); MEAN PLATELET VOLUME 9.1 fl (7.0-11.0); MONO # 0.2 (0.1-0.6); MONO % 3.2 % (1.0-6.0); RBC 3.6 10^6/uL (3.5-6.1); RED CELL DISTRIBUTION WIDTH 18.3 % (11.5-14.5); WHITE BLOOD COUNT 7.2 10^3/ul (4.5-11.0)
[2017-09-03 14:25] LABS: ALB/GLOB RATIO 1.2 (1.1-1.8); ALBUMIN 3.1 g/dL (3.0-4.8); ALT/SGPT 34 U/L (7-56); AST/SGOT 24 U/L (17-59); BLOOD UREA NITROGEN 14 mg/dL (7-21); GFR AFRICAN-AMERICAN > 60; GFR NON-AFRICAN AMERICAN > 60
--- NOTE | 2017-09-03 23:26 | CP.PCM.CON ---
History of Present Illness - History of Present Illness History of Present Illness: this 57-year-old patient the possibilities here for COPD, paroxysmal atrial fibrillation status post ablation , cardiomyopathy status post a non-ST segment SD possibly secondary thrombus on elaquis was admitted with shortness of breath and episodes of the bright red blood per rectum. He has small amounts of blood intermittently but recently has moved significant blood per rectum. Patient was also found to have a hemoglobin of 7.2 has bilateral leg swelling G a consult was requested to evaluate the anemia and GI bleeding. This patient had push enteroscopy was done by is Dr. Manjarrez on 11/19/2015. Patient had a jejunal biopsies and the duodenal biopsies were negative for celiac disease.patient had a colonoscopy done on the same date was found to have multiple colon polyps hemorrhoids and the preparation was fair with areas of semisolid stool material present throughout the colon , the pathology of the colon polyps were tubular adenomas. The duodenal biopsy negative for celiac and gastric biopsy was negative for H. pylori patient did have colonoscopy done by Dr. Gonzalez on 11/12/2014 on how colon polyps esophageal brushing done revealed a candidiasis. Patient denies any abdominal pain now is no vomiting blood No melena history of bright red blood Per rectum History of chronic back pain. Patient has chronic pain medication being followed by pain management Dr. Mota patient is also on lenses for constipation OTHER POSSIBILITIES HISTORY as above COPD emphysema chronic back pain compression fracture of T10 D4 chronic anemia on iron supplements SOCIAL HISTORY ex-smoker Patient on methadone denies drinking FAMILY HISTORY significant for coronary artery disease REVIEW OF SYSTEM positive as above other systems reviewed Review of Systems - Review of Systems All systems: reviewed and no additional remarkable complaints except - Constitutional Constitutional: absent: Chills, Fever - Gastrointestinal Gastrointestinal: Hematochezia Past Patient History - Infectious Disease Hx of Infectious Diseases: None - Tetanus Immunizations Tetanus Immunization: Unknown - Past Medical History & Family History Past Medical History?: Yes - Past Social History Smoking Status: Former Smoker - CARDIAC Hx Cardiac Disorders: Yes (SD) Hx Congestive Heart Failure: Yes Hx Hypertension: Yes - PULMONARY Hx Chronic Obstructive Pulmonary Disease (COPD): Yes - NEUROLOGICAL Hx Neurological Disorder: No - HEENT Hx HEENT Problems: Yes (CONTACTS,WEARS RX GLASSES AT TIMES,H/O OF NOSEBLEEDS) Other/Comment: nosebleeds - RENAL Hx Chronic Kidney Disease: No - ENDOCRINE/METABOLIC Other/Comment: steroid induced diabetes - HEMATOLOGICAL/ONCOLOGICAL Hx Blood Disorders: Yes Hx Anemia: Yes (blood transfusion) - INTEGUMENTARY Other/Comment: tatoo r arm - MUSCULOSKELETAL/RHEUMATOLOGICAL Hx Falls: No - GASTROINTESTINAL Hx Gastrointestinal Disorders: Yes (appendectomy,colon sx,gerd) - GENITOURINARY/GYNECOLOGICAL Hx Genitourinary Disorders: No Hx Reproductive Disorders: No - PSYCHIATRIC Hx Anxiety: Yes Hx Substance Use: No - SURGICAL HISTORY Hx Appendectomy: Yes (53 yrs ago) Other/Comment: colon sx x2 as a child swallowed coins, bx and polypectomy, egd and colonoscopy - ANESTHESIA Hx Anesthesia: Yes Hx Anesthesia Reactions: No Hx Malignant Hyperthermia: No Meds Allergies/Adverse Reactions: Allergies Allergy/AdvReac Type Severity Reaction Status Date / Time No Known Allergies Allergy Verified 09/02/17 14:51 - Medications Medications: Current Medications Acetaminophen (Tylenol 325mg Tab) 650 mg PO Q6H PRN PRN Reason: Pain, moderate (4-7) Last Admin: 09/02/17 22:10 Dose: 650 mg Arformoterol Tartrate (Brovana) 15 mcg IH [id number] [facility] Last Admin: 09/03/17 07:21 Dose: 15 mcg Ferrous Sulfate (Feosol) 324 mg PO TID ERNESTINA Last Admin: 09/03/17 18:29 Dose: 324 mg Furosemide (Lasix) 40 mg IVP DAILY [facility] Last Admin: 09/03/17 09:05 Dose: 40 mg Pantoprazole Sodium (Protonix 40mg Ivpb) 40 mg in 100 mls @ 20 mls/hr IVPB .Q5H [facility] Last Admin: 09/03/17 20:40 Dose: 20 mls/hr Ceftriaxone Sodium (Rocephin 1 Gram Ivpb) 1 gm in 100 mls @ 100 mls/hr IVPB DAILY ERNESTINA PRN Reason: Protocol Last Admin: 09/03/17 09:06 Dose: 100 mls/hr Dexmedetomidine HCl (Precedex 4 Mcg/Ml (100 Ml)) 400 mcg in 100 mls @ 3.795 mls /hr IV .Q24H PRN; Protocol; 0.2 MCG/KG/HR PRN Reason: Anxiety Last Admin: 09/03/17 22:23 Dose: 1.2 mcg/kg/hr, 22.768 mls/hr Levalbuterol HCl (Xopenex) 1.25 mg IH [id number] [facility] Last Admin: 09/03/17 13:03 Dose: 1.25 mg Methylprednisolone (Solu-Medrol) 40 mg IVP Q6 [facility] Last Admin: 09/03/17 18:31 Dose: 40 mg Montelukast Sodium (Singulair) 10 mg PO HS [facility] Last Admin: 09/03/17 21:39 Dose: 10 mg Oxycodone HCl (Oxycodone Immediate Release Tab) 15 mg PO Q6H PRN PRN Reason: Pain, severe (8-10) Last Admin: 09/03/17 22:11 Dose: 15 mg Roflumilast (Daliresp) 500 mcg PO DAILY [facility] Last Admin: 09/03/17 09:00 Dose: 500 mcg Roflumilast (Daliresp) 500 mcg PO DAILY [facility] Last Admin: 09/03/17 09:00 Dose: Not Given Sotalol HCl (Betapace) 120 mg PO BID [facility] Last Admin: 09/03/17 18:29 Dose: 120 mg Tizanidine HCl (Zanaflex) 4 mg PO TID [facility] Last Admin: 09/03/17 18:29 Dose: 4 mg Physical Exam - Head Exam Head Exam: ATRAUMATIC. absent: NORMOCEPHALIC - Eye Exam Eye Exam: EOMI, PERRL. absent: Scleral icterus - ENT Exam ENT Exam: Mucous Membranes Moist - Neck Exam Neck exam: Positive for: Normal Inspection. Negative for: Lymphadenopathy, Thyromegaly - Respiratory Exam Respiratory Exam: absent: Rhonchi, Stridor - Cardiovascular Exam Cardiovascular Exam: +S1, +S2. absent: JVD - GI/Abdominal Exam GI & Abdominal Exam: Normal Bowel Sounds, Soft. absent: Mass, Tenderness - Extremities Exam Extremities exam: Positive for: pedal edema. Negative for: calf tenderness - Neurological Exam Neurological exam: Alert, Oriented x3 Results - Vital Signs Recent Vital Signs: Last Vital Signs Temp 99 F 09/03/17 16:00 Pulse 79 09/03/17 22:16 Resp 26 H 09/03/17 22:16 BP 107/67 09/03/17 22:16 Pulse Ox 92 L 09/03/17 22:16 - Labs Result Diagrams: 09/03/17 06:00 09/03/17 06:00 Labs: Laboratory Results - last 24 hr 09/03/17 09/03/17 09/03/17 02:00 02:00 02:00 WBC 7.2 D 5.6 D RBC 3.60 3.47 L Hgb 9.3 L 9.0 L Hct 29.9 L 28.6 L MCV 83.1 82.4 MCH 25.8 25.9 MCHC 31.1 31.5 RDW 18.3 H 17.8 H Plt Count 160 135 MPV 9.1 9.1 Gran % 92.9 H Lymph % (Auto) 3.9 L [place] % (Auto) 3.2 Eos % (Auto) 0.0 L Baso % (Auto) 0.0 Gran # 6.73 H Lymph # (Auto) 0.3 L [place] # (Auto) 0.2 Eos # (Auto) 0.0 Baso # (Auto) 0.00 Sodium 138 Potassium 3.4 L Chloride 91 L Carbon Dioxide 37 H Anion Gap 14 BUN 14 Creatinine 0.6 L Est GFR ( Amer) > 60 Est GFR (Non-Af Amer) > 60 Random Glucose 130 H Calcium 9.0 Phosphorus Magnesium Total Bilirubin 0.6 AST 24 ALT 34 Alkaline Phosphatase 99 Total Protein 5.8 Albumin 3.1 Globulin 2.7 Albumin/Globulin Ratio 1.2 09/03/17 09/03/17 06:00 06:00 WBC 6.0 RBC 3.59 Hgb 9.4 L Hct 29.8 L MCV 83.0 MCH 26.2 MCHC 31.5 RDW 18.1 H Plt Count 154 MPV 9.2 Gran % 91.3 H Lymph % (Auto) 5.5 L [place] % (Auto) 3.0 Eos % (Auto) 0.0 L Baso % (Auto) 0.2 Gran # 5.48 Lymph # (Auto) 0.3 L [place] # (Auto) 0.2 Eos # (Auto) 0.0 Baso # (Auto) 0.01 Sodium 136 Potassium 3.3 L Chloride 89 L Carbon Dioxide 39 H Anion Gap 10 BUN 14 Creatinine 0.6 L Est GFR ( Amer) > 60 Est GFR (Non-Af Amer) > 60 Random Glucose 142 H Calcium 9.1 Phosphorus 4.1 Magnesium 2.3 H Total Bilirubin 0.6 AST 24 ALT 33 Alkaline Phosphatase 98 Total Protein 5.5 L Albumin 3.0 Globulin 2.5 Albumin/Globulin Ratio 1.2 Assessment & Plan - Assessment and Plan (Free Text) Assessment: this 57-year-old patient admitted with anemia shortness of breath dysuria or bleeding with a hemoglobin of 7.8 patient drop in hemoglobin to 6.8 admitted hemoglobin 7.2 patient did receive 2 units of packed RBC and now the hemoglobin has improved to 9.4 his problems include 1 GI bleeding history of bleeding per rectum the differential diagnoses include diverticulosis internal hemorrhoids colon polyps patient did have colonoscopy 2 years ago had a multiple polyps the preparation was fair 2. Patient has been on liquids until admission yesterday 3. Paroxysmal A. fib status post ablation therapy 4. Cardiomyopathy history of possible thrombus 5. COPD on home prednisone 6. History of iron deficiency anemia on chronic iron supplement last EGD workup was in 2015 Plan: 1. Follow up of the hemoglobin Hematocrit and transfuse 2. Patient is on empiric pantoprazole IV drip and continue 3. COPD accelerations on IV Solu-Medrol 4, Cardia myopathy history of status post SD in the past status post ablation therapy for atrial fibrillation will continue to closely follow her Consider upper GI endoscopy as initial evaluation after further optimization off cardiopulmonary status I discussed with the Dr. velázquez today about this patient including previous GI workup Continue to follow the patient and suggest further recommendation based on the clinical course - Date & Time Date: 09/03/17 Time: 15:00
[2017-09-04] MEDS: MethylPREDNISolone 40 mg Vial IVP SCH ×4 (00:38→21:35)
--- NOTE | 2017-09-04 00:50 | CON ---
DATE: 09/03/2017 CONSULTING SERVICE: Cardiology. CONSULTING PHYSICIAN: Shaila Samuel MD REASON FOR CONSULTATION AND FOLLOWUP: Cardiac evaluation, admitted with GI bleeding, history of nonobstructive coronary artery disease, cardiomyopathy, AFib status post radiofrequency ablation. BRIEF CLINICAL HISTORY: This is a 57-year-old male with past medical history significant for paroxysmal atrial fibrillation status post radiofrequency ablation; COPD; history of non-ST elevation myocardial infarction in 2013; cardiac catheterization, essentially normal coronaries; came in with complaint of rectal bleeding, patient was on Eliquis; admitting hemoglobin was packed RBC transfusion. Denies any chest pain, shortness of breath, any palpitation. PAST MEDICAL HISTORY: Significant for atrial fibrillation, status post radiofrequency ablation, nonobstructive coronary artery disease, status post cardiac catheterization in 11/2013, history of COPD. Previous cardiac workup as follows: History of cardiac catheterization 11/2013, essentially normal coronaries; cardiomyopathy was secondary to thrombus in the coronaries. Later on, the MUGA scan showed ejection fraction 54%, dated 10/2013. Repeat MUGA in 04/2014, 55%. Most recent MUGA also 50%. Most recent echocardiography on 06/01/2017, it shows borderline LV function within normal, LV segmental wall motion abnormality, mild pulmonary hypertension. At this time, the patient following up with Dr. Garg, ejection fraction 50%. SOCIAL HISTORY: Used to smoke heavy, but cut down. Now, patient is on Methadone Maintenance Program, currently is on oxycodone. Quit smoking in 2012. Denies any history of alcohol abuse. REVIEW OF SYSTEMS: As per HPI. PHYSICAL EXAMINATION: As follows: VITAL SIGNS: Temperature afebrile, heart rate 84, blood pressure 116/65. HEENT: PERRLA. Extraocular muscles intact. NECK: Supple. No carotid bruits or thyromegaly. CHEST: Clear to auscultation. HEART: S1 and S2 regular. ABDOMEN: Soft. EXTREMITIES: Clubbing and cyanosis negative. LABORATORY DATA: WBC 6, hemoglobin 9.8, hematocrit 29.8, platelet count 154. Chemistry showed sodium 130, potassium 3.3, chloride 89, carbon dioxide 39, anion gap of 10, BUN 14, creatinine 0.4. IMPRESSION: Rectal bleed, severe anemia, admitting hemoglobin 6.8. Patient was no Eliquis. History of paroxysmal atrial fibrillation status post radiofrequency ablation, normal coronaries, mild cardiomyopathy, fractured vertebrae, back pain radiating to the front. RECOMMENDATION: Adequate analgesia, avoid NSAID, discontinue Eliquis. We will follow closely. Supplement electrolytes. We will follow with you. Thank you Dr. Bowman for providing us the opportunity in taking care of the patient, Demetrio Ghotra. We will follow with you. Shaila Samuel MD
[2017-09-04] MEDS: Levalbuterol 1.25 MG/3 ML Inhal Soln UD IH SCH ×4 (01:15→19:53)
[2017-09-04] MEDS: Pantoprazole 40mg/100mL NS 40 MG/100 ML BAG IVPB SCH (01:28)
[2017-09-04] MEDS: Dexmedetomidine 400mcg/100mL 400 MCG/100 ML BOTTLE IV PRN (01:30)
--- NOTE | 2017-09-04 02:41 | PN ---
DATE: 09/03/2017 REFERRING PHYSICIAN: Ross Bowman MD. SUBJECTIVE: He is mildly sedative, on noninvasive ventilation. Night was unremarkable. No cough. No sputum production. No abdominal pain. No nausea. No vomiting. He had a dark melanotic stool at one time last night. No leg pain, no leg swelling. OBJECTIVE: GENERAL: On noninvasive ventilation. VITAL SIGNS: Temperature is 98, heart rate 74, respiratory rate is 26, blood pressure is 90/49, pulse ox 92% on BiPAP with supplemental oxygen. HEENT: Moist mucous membrane. Crowded airway. Mallampati score 4. NECK: Supple. No JVD. LUNGS: Bilateral wheezing, rhonchi heard. HEART: S1 and S2. ABDOMEN: Soft, nontender. Nondistended. EXTREMITIES: There is no edema. NEUROLOGIC: Awake and alert. Follows simple commands. MEDICATIONS: He is on sotalol 120 mg twice a day, Brovana inhale twice a day, Daliresp daily. Also ferrous sulfate 324 mg three times a day, Lasix 40 mg daily, oxycodone immediate release 50 mg q. 6 hours p.r.n.. He is on Precedex IV, Protonix 40 mg daily, Rocephin 1 g IV daily, Singulair 10 mg daily, Solu-Medrol 40 mg q. 6 hours, Tylenol p.r.n. basis, Xopenex inhaler q.6 hours, and Zanaflex 4 mg three times a day. LABORATORY DATA: Shows hemoglobin of 9.4, hematocrit 29.8, WBC 6.0, platelet is 154. Sodium 139, potassium 3.3, chloride 89, bicarbonate 39, BUN 14, creatinine 0.6, glucose 142, calcium 9.1, phosphorus 4.1, magnesium 2.3. AST is 24, ALT 33, alkaline phosphatase 98. Albumin is 3.0. Microbiology: Urine culture has gram negative rods. Chest x-ray done today, shows no active pulmonary disease reported. IMPRESSION AND PLAN: Severe anemia probably secondary to gastrointestinal bleed. He had episode of melena last night, chronic obstructive lung disease, respiratory failure, requiring noninvasive ventilation, T9-T10 compression fracture, coronary artery disease, history of atrial fibrillation, presently off all anticoagulation because of gastrointestinal bleed and severe anemia. Continue IV Protonix, continue noninvasive ventilation, IV fluids, IV and inhaled bronchodilator, SCD to lower extremity. Follow up ABG, chest x-ray, CBC, CMP in the morning. GI followup. Critical care time more than 35 minutes. Shaila Mercado MD
[2017-09-04] MEDS: oxyCODONE 15 mg Immediate Release Tab PO PRN ×5 (05:19→21:35)
[2017-09-04] MEDS ORDERED: Levalbuterol 1.25 MG/3 ML Inhal Soln UD IH STA (05:56)
[2017-09-04 06:25] LABS: BASO # 0.03 K/mm3 (0.0-2.0); BASO % 0.6 % (0.0-3.0); GRAN # 4.69 (1.4-6.5); GRAN % 88.3 % (50.0-68.0); HEMOGLOBIN 9.2 g/dL (14.0-18.0); LYMPH # 0.4 (1.2-3.4); LYMPH % 8.3 % (22.0-35.0); MEAN CELL VOLUME 83.5 fl (80.0-105.0); MEAN CORPUSCULAR HEMOGLOBIN 25.8 pg (25.0-35.0); MEAN CORPUSCULAR HGB CONC 30.9 g/dl (31.0-37.0); MONO # 0.2 (0.1-0.6); MONO % 2.8 % (1.0-6.0); RBC 3.57 10^6/uL (3.5-6.1); WHITE BLOOD COUNT 5.3 10^3/ul (4.5-11.0)
[2017-09-04 06:40] LABS: ARTERIAL BLOOD GAS HCO3 31.9 mmol/L (21-28); ARTERIAL BLOOD GAS HEMOGLOBIN 8.5 g/dL (11.7-17.4); ARTERIAL BLOOD GAS O2 CAPACITY 11.9 mL/dl (16-24); ARTERIAL BLOOD GAS O2 CONTENT 11.5 ML/dl (15-23); ARTERIAL BLOOD GAS O2 SAT 96.7 % (95-98); ARTERIAL BLOOD GAS PCO2 40 mm/Hg (35-45); ARTERIAL BLOOD GAS PH 7.51 (7.35-7.45); ARTERIAL BLOOD GAS TCO2 33.1 mmol.L (22-28)
[2017-09-04 07:04] LABS: ALBUMIN 3.1 g/dL (3.0-4.8); BLOOD UREA NITROGEN 18 mg/dL (7-21); CALCIUM 9.3 mg/dL (8.4-10.5); GFR AFRICAN-AMERICAN > 60; GFR NON-AFRICAN AMERICAN > 60; MAGNESIUM 2.3 mg/dL (1.7-2.2)
[2017-09-04 07:05] LABS: ALB/GLOB RATIO 1.1 (1.1-1.8); ALT/SGPT 32 U/L (7-56); AST/SGOT 29 U/L (17-59)
[2017-09-04] MEDS ORDERED: Potassium Chloride 40 mEq/30 ml LIQ UD PO ONE ×2 (07:33→09:49)
[2017-09-04] MEDS: Arformoterol 15 mcg/2 ml Inh Sol IH SCH ×2 (08:03→19:53)
--- NOTE | 2017-09-04 09:53 | PN ---
DATE: 09/03/2017 [facility] REPAIRER NOTE SUBJECTIVE: The patient this morning is on BiPAP with O2 support stating that he needs his pain medications and is a little anxious. The patient had a second unit of packed red blood cells and developed some increased shortness of breath with hypoxia secondary to pulmonary edema. Lasix has been given and he is diuresing very well. We are monitoring him closely with O2 sats and giving the BiPAP as well as the oxygen. The patient's hemoglobin has improved significantly. No fever, chills. No nausea or vomiting. No diarrhea. No chest pain. No abdominal pain. No significant cough. The patient was noted to have UTI and antibiotics were started. PHYSICAL EXAMINATION VITAL SIGNS: His temperature is 97.9, pulse is 87, respirations are 19, and blood pressure is 133/74. SKIN: Warm and dry. HEENT: Head is atraumatic, normocephalic. Eyes, reactive to light. Ear, nose, and throat: Seem to be within normal limits. NECK: Supple. No JVD. No thyroid enlargement or lymph nodes. HEART: Has regular rate and rhythm. Normal S1, S2. LUNGS: Reveal rare crackles at the bases with generalized decreased breath sounds. ABDOMEN: Soft. Decreased bowel sounds. GENITALIA: Deferred. RECTAL: Deferred. MUSCULOSKELETAL: No joint deformities. EXTREMITIES: Reveal trace lower extremity edema. NEUROLOGIC: He seemed to be grossly intact. DATA: As far as his laboratories are concerned, the patient's white count is 6.0, hemoglobin is 9.4, hematocrit 29.8 with platelets of 154,000. His sodium is 136, potassium 3.3, chloride 89, CO2 of 39 with a BUN of 14, creatinine of 0.6, and a glucose of 142. As far as chest x-ray, results are pending. IMPRESSION: My impression is that this patient has acute pulmonary edema. Also, history of severe chronic obstructive pulmonary disease, oxygen dependent at home. He has a history of congestive heart failure and presented to the hospital with acute gastrointestinal bleed and anemia. The patient does have chronic respiratory failure. He carries a diagnosis of atrial fibrillation with a history of rapid ventricular response and cardiac ablation. He has chronic thoracic pain due to thoracic spine compression. The patient has diagnoses of hypertension, diabetes, anxiety and myocardial infarction in the past. PLAN: As far as our plan, we will continue with aggressive diuresis. Continue with the BiPAP and O2 support. The patient is getting his pain medications and his anxiety medications. We will monitor his O2 saturation closely. He is on Brovana as well as Solu-Medrol and he is getting his Daliresp as well as his Singulair. The patient's hemoglobin will be followed closely. We will continue to treat aggressively along with the other consultants and primary care doctor. Husam Villegas MD <
[2017-09-04] MEDS ORDERED: Cefepime 1gm in NS 100ml 1 GM/100 ML BAG IVPB SCH (10:00)
[2017-09-04] MEDS: cefTRIAXone 1 gm 1 GM/100 ML BAG IVPB SCH (10:04)
[2017-09-04 10:07] LABS: INR 0.99 (0.93-1.08); PROTHROMBIN TIME 11.4 SECONDS (9.4-12.5)
[2017-09-04 10:10] LABS: PARTIAL THROMBOPLASTIN TIME 21.6 Seconds (25.1-36.5)
--- NOTE | 2017-09-04 11:35 | CP.PCM.PN ---
<Tasha Francois - Last Filed: 09/04/17 11:31> Subjective - Date & Time of Evaluation Date of Evaluation: 09/04/17 Time of Evaluation: 11:31 - Subjective Subjective: ICU Progress Note for Inna Moncada PGY2 Patient seen and examined at bedside. As per nursing staff, there were no acute overnight events. Patient is resting comfortably on Bipap. He denies chest pain , shortness of breath, nausea/vomiting/diarrhea, numbness/tingling, fever or chills, dysuria or hematuria. Objective - Vital Signs/Intake and Output Vital Signs (last 24 hours): Temp Pulse Resp BP Pulse Ox 98.2 F 80 43 H 126/53 L 95 09/04/17 08:00 09/04/17 11:17 09/04/17 11:00 09/04/17 11:17 09/04/17 11:17 Intake and Output: 09/04/17 09/04/17 06:59 18:59 Intake Total 694.7 Output Total 600 Balance 94.7 - Medications Medications: Current Medications Acetaminophen (Tylenol 325mg Tab) 650 mg PO Q6H PRN PRN Reason: Pain, moderate (4-7) Last Admin: 09/02/17 22:10 Dose: 650 mg Alprazolam (Xanax) 0.25 mg PO TID [facility] PRN Reason: Protocol Stop: 09/11/17 14:01 Alprazolam (Xanax) 0.25 mg PO ONCE ONE PRN Reason: Protocol Stop: 09/04/17 11:22 Arformoterol Tartrate (Brovana) 15 mcg IH [id number] [facility] Last Admin: 09/04/17 08:03 Dose: 15 mcg Ferrous Sulfate (Feosol) 324 mg PO TID [facility] Last Admin: 09/04/17 10:01 Dose: 324 mg Furosemide (Lasix) 40 mg IVP DAILY [facility] Last Admin: 09/04/17 10:03 Dose: 40 mg Cefepime HCl (Maxipime 1gm) 1 gm in 100 mls @ 100 mls/hr IVPB Q12 [facility] PRN Reason: Protocol Last Admin: 09/04/17 10:03 Dose: 100 mls/hr Levalbuterol HCl (Xopenex) 1.25 mg IH [id number] [facility] Last Admin: 09/04/17 08:03 Dose: 1.25 mg Methylprednisolone (Solu-Medrol) 40 mg IVP Q8 [facility] Montelukast Sodium (Singulair) 10 mg PO HS [facility] Last Admin: 09/03/17 21:39 Dose: 10 mg Oxycodone HCl (Oxycodone Immediate Release Tab) 15 mg PO Q4H PRN PRN Reason: Pain, severe (8-10) Pantoprazole Sodium (Protonix Inj) 40 mg IVP Q12 [facility] Last Admin: 09/04/17 10:04 Dose: 40 mg Roflumilast (Daliresp) 500 mcg PO DAILY [facility] Last Admin: 09/04/17 10:01 Dose: 500 mcg Sotalol HCl (Betapace) 120 mg PO BID [facility] Last Admin: 09/04/17 10:01 Dose: 120 mg Tizanidine HCl (Zanaflex) 4 mg PO TID [facility] Last Admin: 09/04/17 10:13 Dose: 4 mg - Labs Labs: 09/04/17 05:30 09/04/17 05:30 PT 11.4 SECONDS (9.4-12.5) 09/04/17 09:30 INR 0.99 (0.93-1.08) 09/04/17 09:30 APTT 21.6 Seconds (25.1-36.5) L 09/04/17 09:30 - Constitutional Appears: No Acute Distress - Head Exam Head Exam: ATRAUMATIC, NORMAL INSPECTION, NORMOCEPHALIC - Eye Exam Eye Exam: Normal appearance, PERRL Pupil Exam: NORMAL ACCOMODATION, PERRL - ENT Exam ENT Exam: Mucous Membranes Dry - Neck Exam Neck Exam: Full ROM - Respiratory Exam Respiratory Exam: Clear to Ausculation Bilateral, NORMAL BREATHING PATTERN. absent: Rales, Rhonchi, Wheezes - Cardiovascular Exam Cardiovascular Exam: REGULAR RHYTHM, +S1, +S2. absent: Gallop, Rubs, Murmur - GI/Abdominal Exam GI & Abdominal Exam: Soft, Normal Bowel Sounds. absent: Rigid, Tenderness, Mass , Rebound - Extremities Exam Extremities Exam: Normal Inspection. absent: Calf Tenderness, Pedal Edema - Neurological Exam Neurological Exam: Alert, Awake, CN II-XII Intact, Oriented x3 - Psychiatric Exam Psychiatric exam: Normal Affect, Normal Mood - Skin Skin Exam: Dry, Warm Assessment and Plan - Assessment and Plan (Free Text) Assessment: This is a 57yo M with PMH with CHF, emphysema (on home O2 4L), paroxysmal a.fib (on Xeralto), Thoracic compression fracture (chronic opioid user) and anemia was admitted for UTI, COPD exacerbation and anemia secondary to GI bleed. Plan: Neuro: A&O x 3 Continue pain control Maintain normotermia CV: Hx of a.fib and CHF HD stable at this time Anticoagulants on hold for GI bleed Cardio on consult Lasix 40 IVP daily and Sotalol Monitor I&O. Maintain MAP >65 Pulm: COPD exacerbation ABG showed improvement of CO2 retention Pt put on venti mask Pulm consulted Maintain spO2>92% Aspiration precaution, HOB elevated Solumedrol decreased to 40q8 Continue Brovana, Singulair, Daliresp, Xopenex GI: Rectal bleeding while on Xeralto GI on consult-recs appreciated Clear liquid diet Heme: Anemia secondary to GI bleed s/p 2U PRBC Hgb stable Hold anticoagulants Monitor H/H Heme consulted ID: UTI Afebrile, no leukocytosis Culture results done with sensitivities Changed Abx to Cefepime Endo: Maintain euglycemia GI ppx: Protonix DVT ppx: SCDs (no anticoags for bleed) Dispo: Patient is HD stable. He will be transferred to [facility]. Case seen, discussed and reviewed with attending. Inna Francois PGY2 <Omer Jules - Last Filed: 09/04/17 12:04> Objective - Vital Signs/Intake and Output Vital Signs (last 24 hours): Temp Pulse Resp BP Pulse Ox 98.2 F 80 43 H 126/53 L 95 09/04/17 08:00 09/04/17 11:17 09/04/17 11:00 09/04/17 11:17 09/04/17 11:17 Intake and Output: 09/04/17 09/04/17 06:59 18:59 Intake Total 694.7 Output Total 600 Balance 94.7 - Medications Medications: Current Medications Acetaminophen (Tylenol 325mg Tab) 650 mg PO Q6H PRN PRN Reason: Pain, moderate (4-7) Last Admin: 09/02/17 22:10 Dose: 650 mg Alprazolam (Xanax) 0.25 mg PO TID [facility] PRN Reason: Protocol Stop: 09/11/17 14:01 Arformoterol Tartrate (Brovana) 15 mcg IH [id number] [facility] Last Admin: 09/04/17 08:03 Dose: 15 mcg Ferrous Sulfate (Feosol) 324 mg PO TID [facility] Last Admin: 09/04/17 10:01 Dose: 324 mg Furosemide (Lasix) 40 mg IVP DAILY [facility] Last Admin: 09/04/17 10:03 Dose: 40 mg Cefepime HCl (Maxipime 1gm) 1 gm in 100 mls @ 100 mls/hr IVPB Q12 [facility] PRN Reason: Protocol Last Admin: 09/04/17 10:03 Dose: 100 mls/hr Levalbuterol HCl (Xopenex) 1.25 mg IH [id number] [facility] Last Admin: 09/04/17 08:03 Dose: 1.25 mg Methylprednisolone (Solu-Medrol) 40 mg IVP Q8 [facility] Montelukast Sodium (Singulair) 10 mg PO HS [facility] Last Admin: 09/03/17 21:39 Dose: 10 mg Oxycodone HCl (Oxycodone Immediate Release Tab) 15 mg PO Q4H PRN PRN Reason: Pain, severe (8-10) Pantoprazole Sodium (Protonix Inj) 40 mg IVP Q12 [facility] Last Admin: 09/04/17 10:04 Dose: 40 mg Roflumilast (Daliresp) 500 mcg PO DAILY [facility] Last Admin: 09/04/17 10:01 Dose: 500 mcg Sotalol HCl (Betapace) 120 mg PO BID [facility] Last Admin: 09/04/17 10:01 Dose: 120 mg Tizanidine HCl (Zanaflex) 4 mg PO TID [facility] Last Admin: 09/04/17 10:13 Dose: 4 mg - Labs Labs: 09/04/17 05:30 09/04/17 05:30 PT 11.4 SECONDS (9.4-12.5) 09/04/17 09:30 INR 0.99 (0.93-1.08) 09/04/17 09:30 APTT 21.6 Seconds (25.1-36.5) L 09/04/17 09:30 Assessment and Plan - Assessment and Plan (Free Text) Plan: Patient seen and examined on rounds with resident, agree with note with following additions/exceptions: 57yo male with PMHx of COPD on home o2, Afib on Xarelto, Chronic opiod use, presents with hypercapnia, which has resolved, currently off bipap, doing well, in NAD, ABG improved. COPD exacerbation Chronic Hypoxia Anemia, stable Afib Recommend: - supp o2 as needed, goal sat 90% - Change antibiotics to cefepime to cover for UTI based on sensitivities - BP control - hold A/C - Sotalol - Lasix daily - Duonebs PRN - Solumedrol 40mg Q8hr - monitor HH, follow up GI - GI ppx, PPI - DVT ppx, SCDs - Stable, transfer to tele
--- NOTE | 2017-09-04 16:48 | PN ---
DATE: 09/04/2017 REASON FOR CONSULTATION: Followup cardiac evaluation, admitted with GI bleed, history of nonobstructive coronary artery disease, cardiomyopathy, AFib, status post radiofrequency ablation. SUBJECTIVE: He denies any chest pain, but complains of back pain. PHYSICAL EXAMINATION: GENERAL: Not in apparent distress. VITAL SIGNS: Temperature afebrile, heart rate 80, blood pressure 123/53. HEENT: PERRLA. Extraocular muscles intact. NECK: Supple. No carotid bruits or thyromegaly. CHEST: Clear to auscultation. HEART: S1 and S2 regular. ABDOMEN: Soft. EXTREMITIES: Clubbing and cyanosis negative. LABORATORY DATA: Blood workup as follows: WBC , hemoglobin 9.8, hematocrit 29.8, platelet count 170. Chemistry showed sodium 130, potassium 3.4, chloride 93, carbon dioxide 33, anion gap of 16, BUN 18, creatinine 0.6, total protein 5.8, albumin 3.1, albumin-globulin ratio 1.1. IMPRESSION: Hypokalemia, rectal bleed, now hemoglobin and hematocrit have been stable, history of nonobstructive coronary artery disease, mild cardiomyopathy, back pain, lumbar vertebra compression fracture. Most recent MUGA scan, preserved left ventricular function. Smoker, history of atrial fibrillation, status post radiofrequency ablation, was on Eliquis. RECOMMENDATIONS: Continue adequate analgesia, avoid NSAID, it was discontinued, supportive care. CVS status is stable. No further invasive cardiac workup is planned. The patient is okay to transfer to telemetry. Continue sotalol. Thank you, Dr. Bowman for providing us the opportunity in taking care of the patient, Demetrio Cano. Shaila Samuel MD
--- NOTE | 2017-09-04 17:44 | PN ---
DATE: SUBJECTIVE: The patient is 57-year-old, seen and examined. States he could not sleep sleeping pill, still has shortness of breath. No more rectal bleeding. Required two blood transfusions. Planned to have endoscopy and colonoscopy once the respiratory status is stable. PHYSICAL EXAMINATION: VITAL SIGNS: He is afebrile, pulse 80, respirations 24, blood pressure 126/53. LUNGS: Bilateral diffusely decreased breath sounds. HEART: S1 and S2 audible. ABDOMEN: Soft, nontender, abuse, no hepatosplenomegaly. NEUROLOGIC: He is awake, alert, able to communicate. EXTREMITIES: Bilateral legs, no edema. LABORATORY DATA: WBC 5.3, hemoglobin 9.2, hematocrit 28.9, platelet of 170. Chemistry; sodium 138, potassium 3.4, chloride 93, CO2 of 33, BUN 18, creatinine 0.6, blood sugar of 135. ASSESSMENT: 1. Rectal bleeding, probably secondary to anticoagulation. He was on Eliquis that has been stopped. The patient has GI workup done almost two years ago including capsule endoscopy and capsule ended up getting stuck, was surgically removed. However, plan is to do EGD and colonoscopy once he is stable. 2. Congestive heart failure, [id number]. 3. Nonischemic cardiomyopathy. 4. Paroxysmal atrial fibrillation, status post ablation, now seems to be in sinus rhythm. 5. Citrobacter freundii urinary tract infection. 6. Degenerative disk disease. 7. Narcotic dependence. 8. Anxiety disorder. PLAN: We will start patient on Cipro since he is sensitive to Cipro. We will give him a dose of Ambien and small dose of anxiolytics and reevaluate in a.m. Ross Bowman MD
--- NOTE | 2017-09-05 00:33 | PN ---
DATE: 09/04/2017 PULMONARY CRITICAL CARE PROGRESS NOTE REFERRING PHYSICIAN: Dr. Bowman. SUBJECTIVE: Patient is still on noninvasive ventilation, mildly sedated, family is at the bedside, it was tried to place on high-flow oxygen, but the patient did not like it. Still short of breath, no melena, no vomiting, no abdominal pain. OBJECTIVE: GENERAL: On noninvasive ventilation. VITAL SIGNS: Temperature is 98, heart rate is 81, respiratory rate is 25, blood pressure 108/61, pulse ox 90% on BiPAP. HEENT: Moist mucous membrane. Crowded airway. NECK: Supple. No JVD. LUNGS: Have a prolonged expiratory phase with some wheezing. HEART: S1, S2. ABDOMEN: Soft, nontender, no organomegaly. EXTREMITIES: No edema. NEUROLOGIC: Awake, alert, and follows simple command. MEDICATIONS: He is on Betapace 120 mg twice a day, Brovana inhaled twice a day, Cipro 500 mg twice a day, Daliresp 500 mg daily, ferrous sulfate 325 mg three times a day, Lasix 40 mg daily, oxycodone immediate release 50 mg q.4 hours p.r.n., Protonix 40 mg q.12 hours, Singulair 10 mg daily, Solu-Medrol 40 mg q.12 hours, Tylenol p.r.n. basis, Xanax 0.25 mg three times a day, Xopenex inhaled q.6 hours p.r.n., Zanaflex 4 mg three times a day p.r.n. LABORATORY DATA: Shows hemoglobin of 9.2, hematocrit 29.8, WBC 5.3, platelet count is 170. INR 0.99, PTT is 22. ABG done today shows pH 7.51, pCO2 40, O2 of 80, this is on BiPAP with 80% oxygen. Sodium 138, potassium 3.4, chloride 93, bicarbonate 33, BUN is 18, creatinine 0.6, calcium is 9.3, phosphorus 4.4, magnesium 2.3. AST 29, ALT 32, alk phos is 102, albumin is 3.1. Influenza A and B is negative. Urine culture has Citrobacter freundii. Nares culture is unremarkable. IMPRESSION AND PLAN: Severe anemia, probably secondary to gastrointestinal bleed, chronic obstructive lung disease, respiratory failure, noninvasive ventilation, T9 to T10 compression fracture, coronary artery disease, history of atrial fibrillation. Case discussed with medical program specialist and spoke to nursing staff. Spoke with family at bedside. All the questions answered. For now, continue BiPAP. Agree with increasing Solu-medrol. Continue inhaled bronchodilator. We will try to optimize pulmonary care to get him off noninvasive ventilation. We will continue BiPAP for now. In the morning, we will try high-flow oxygen. Again, out of bed to chair, physical therapy, followup labs in the morning. Critical care time more than 35 minutes. Thank you and we will follow with you. Shaila Mercado MD
--- NOTE | 2017-09-05 01:55 | CP.PCM.PN ---
Subjective - Date & Time of Evaluation Date of Evaluation: 09/04/17 Time of Evaluation: 05:00 - Subjective Subjective: S: patient requested a nebulizer treatment. He received one about 2 hours ago. Has no other complaints. Also, respiratory therapist had asked me to draw blood for ABG. Medical record was reviewed. O: VSS. Not in distress. BiPAP on. LUNGS: Normal breathing pattern. A:Dyspnea. Poor vascular access. P:Stat nebulizer treatment with Xopenex 1.25 mg . Blood was drawn for ABG from right brachial artery. Objective - Vital Signs/Intake and Output Vital Signs (last 24 hours): Temp Pulse Resp BP Pulse Ox 97.3 F L 69 20 102/59 L 93 L 09/04/17 23:19 09/04/17 23:19 09/04/17 23:19 09/04/17 23:19 09/04/17 23:19 Intake and Output: 09/04/17 09/05/17 18:59 06:59 Intake Total 880 Output Total 1100 Balance -220 - Medications Medications: Current Medications Acetaminophen (Tylenol 325mg Tab) 650 mg PO Q6H PRN PRN Reason: Pain, moderate (4-7) Last Admin: 09/02/17 22:10 Dose: 650 mg Alprazolam (Xanax) 0.25 mg PO TID [facility] PRN Reason: Protocol Stop: 09/11/17 14:01 Last Admin: 09/04/17 17:57 Dose: 0.25 mg Arformoterol Tartrate (Brovana) 15 mcg IH [id number] [facility] [place] Last Admin: 09/04/17 19:53 Dose: 15 mcg Ciprofloxacin (Cipro) 500 mg PO Q12 [facility] PRN Reason: Protocol Stop: 09/09/17 13:01 Last Admin: 09/04/17 21:35 Dose: 500 mg Ferrous Sulfate (Feosol) 324 mg PO TID [facility] [place] Last Admin: 09/04/17 17:57 Dose: 324 mg Furosemide (Lasix) 40 mg IVP DAILY [facility] [place] Last Admin: 09/04/17 10:03 Dose: 40 mg Levalbuterol HCl (Xopenex) 1.25 mg IH [id number] [facility] [place] Last Admin: 09/04/17 19:53 Dose: 1.25 mg Methylprednisolone (Solu-Medrol) 40 mg IVP Q8 [facility] [place] Last Admin: 09/04/17 21:35 Dose: 40 mg Montelukast Sodium (Singulair) 10 mg PO HS [facility] Last Admin: 09/04/17 21:35 Dose: 10 mg Oxycodone HCl (Oxycodone Immediate Release Tab) 15 mg PO Q4H PRN PRN Reason: Pain, severe (8-10) Last Admin: 09/04/17 21:35 Dose: 15 mg Pantoprazole Sodium (Protonix Inj) 40 mg IVP Q12 [facility] [place] Last Admin: 09/04/17 21:35 Dose: 40 mg Roflumilast (Daliresp) 500 mcg PO DAILY [facility] [place] Last Admin: 09/04/17 10:01 Dose: 500 mcg Sotalol HCl (Betapace) 120 mg PO BID [facility] [place] Last Admin: 09/04/17 17:58 Dose: Not Given Tizanidine HCl (Zanaflex) 4 mg PO TID [facility] [place] Last Admin: 09/04/17 17:57 Dose: 4 mg - Labs Labs: 09/04/17 05:30 09/04/17 05:30 PT 11.4 SECONDS (9.4-12.5) 09/04/17 09:30 INR 0.99 (0.93-1.08) 09/04/17 09:30 APTT 21.6 Seconds (25.1-36.5) L 09/04/17 09:30
[2017-09-05] MEDS: oxyCODONE 15 mg Immediate Release Tab PO PRN ×5 (01:59→17:33)
[2017-09-05] MEDS: Levalbuterol 1.25 MG/3 ML Inhal Soln UD IH SCH ×4 (04:05→19:30)
[2017-09-05] MEDS: MethylPREDNISolone 40 mg Vial IVP SCH ×2 (05:43→21:49)
[2017-09-05 06:55] LABS: HEMOGLOBIN 10.8 g/dL (14.0-18.0); MEAN CELL VOLUME 85.5 fl (80.0-105.0); MEAN CORPUSCULAR HEMOGLOBIN 25.7 pg (25.0-35.0); MEAN CORPUSCULAR HGB CONC 30.1 g/dl (31.0-37.0); MEAN PLATELET VOLUME 9.2 fl (7.0-11.0); RBC 4.2 10^6/uL (3.5-6.1); RED CELL DISTRIBUTION WIDTH 18.4 % (11.5-14.5); WHITE BLOOD COUNT 7.1 10^3/ul (4.5-11.0)
[2017-09-05 07:26] LABS: B-TYPE NATRIURETIC PEPTIDE 889 pg/mL (0-450)
[2017-09-05] MEDS: Arformoterol 15 mcg/2 ml Inh Sol IH SCH ×2 (07:33→19:30)
[2017-09-05 07:49] LABS: ALBUMIN 3.2 g/dL (3.0-4.8); ALT/SGPT 28 U/L (7-56); AST/SGOT 26 U/L (17-59); BLOOD UREA NITROGEN 23 mg/dL (7-21); CALCIUM 9.7 mg/dL (8.4-10.5); GFR AFRICAN-AMERICAN > 60; GFR NON-AFRICAN AMERICAN > 60
--- NOTE | 2017-09-05 08:47 | PN ---
DATE: 09/04/2017 SUBJECTIVE: The patient was seen and evaluated earlier today. No episodes of bleeding per rectum or vomiting. The patient is now off the BiPAP. PHYSICAL EXAMINATION: VITAL SIGNS: Afebrile, blood pressure 108/61, respiration is 23, pulse 81, O2 saturation 90%. HEENT: Atraumatic, anicteric. NECK: Supple. HEART: S1 and S2 heard. LUNGS: Bilateral air entry present. There are few rhonchi present bilaterally. EXTREMITIES: No cyanosis, no clubbing. ABDOMEN: Soft, no tenderness. NEUROLOGIC: Alert, oriented. Moves all extremities. LABORATORY DATA: Hemoglobin 9.2, hematocrit 29.8, WBC 5.3, platelets 170. Chemistry shows potassium 3.4, BUN 18, creatinine 0.6, chloride 93. IMPRESSION: This is a 57-year-old patient with a past medical history of chronic obstructive pulmonary disease, history of paroxysmal atrial fibrillation, status post ablation therapy, cardiomyopathy, status post non-ST segment myocardial infarction, chronic back pain, compression fracture of T9 to T10 vertebra, on pain medications, admitted with increased shortness of breath, found to be anemic, status post 2 units of packed red blood cells, hemoglobin now stable. Gastrointestinal bleeding. The patient is admitted with episodes of rectal bleeding. Hemoglobin post-transfusion 9.4 yesterday and today is 9.2. No obvious bleeding. History of coagulopathy. IMPRESSION: This 57-year-old patient with paroxysmal atrial fibrillation, status post ablation therapy, admitted with severe anemia, shortness of breath, hemoglobin of 7.8, status post 2 units of red blood cells given. Hemoglobin is stable. No obvious bleeding per rectum or melena. The patient did have an esophagogastroduodenoscopy and a colonoscopy in 2015. The patient did have a capsule endoscopy h/o retained capsule was noticed. PLAN: 1. Follow up of the hemoglobin, hematocrit. 2. Continue the Protonix. We will discontinue the drip and change it to Protonix 40 mg q. 12 hourly. 3. We will start the patient on clear liquid diet. 4. The patient would benefit from the endoscopy to further evaluate and we will also do the colonoscopy at the same time as the preparation was suboptimal during the last colonoscopy. Both EGD and colonoscopy will be done after optimization of the patient's pulmonary condition. Preoperatively follow up of the hemoglobin and hematocrit and continue the antibiotics and pulmonary optimization as per the child neurologist, patient would benefit with it. 5. Atrial fibrillation, paroxysmal; status post ablation therapy, appears to be in sinus now. 6. Cardiomyopathy, history of history of peripheral vascular disease. Continue Protonix. 7. The patient has chronic obstructive pulmonary disease exacerbation, on IV Solu-Medrol. Continue the antibiotics as per ID and follow up for the hemoglobin and hematocrit. The patient is scheduled for an endoscopy evaluation tomorrow. Followup of the hemoglobin, hematocrit. The patient is scheduled for an endoscopy evaluation tomorrow. We will continue to closely follow up. Continue PPI. The patient would benefit from the EGD and colonoscopy to further evaluate. Last GI workup was done was in 2015, the colonoscopy. He had multiple colon polyps there and the patient's preparation was suboptimal. Chronic reflux disease. Felicia Bansal MD [facility]
[2017-09-05] MEDS ORDERED: Potassium Chloride 20 mEq ER Tab PO ONE (10:47)
--- NOTE | 2017-09-05 11:34 | CP.PCM.PN ---
<Kiki Vega - Last Filed: 09/05/17 13:06> Subjective - Date & Time of Evaluation Date of Evaluation: 09/05/17 Time of Evaluation: 09:30 - Subjective Subjective: Seen and examined at the bedside earlier today, chart review. Patient on BiPAP , no acute distress. Patient denies nausea or vomiting complains of some epigastric burning and right-sided discomfort. On clear liquids no reports of any overt GI bleed. Objective - Vital Signs/Intake and Output Vital Signs (last 24 hours): Temp Pulse Resp BP Pulse Ox 98.4 F 106 H 23 139/84 94 L 09/05/17 06:00 09/05/17 09:46 09/05/17 06:00 09/05/17 09:46 09/05/17 06:00 Intake and Output: 09/05/17 09/05/17 06:59 18:59 Intake Total 240 Output Total 500 Balance -260 - Medications Medications: Current Medications Acetaminophen (Tylenol 325mg Tab) 650 mg PO Q6H PRN PRN Reason: Pain, moderate (4-7) Last Admin: 09/02/17 22:10 Dose: 650 mg Alprazolam (Xanax) 0.25 mg PO TID [facility] PRN Reason: Protocol Stop: 09/11/17 14:01 Last Admin: 09/05/17 09:54 Dose: 0.25 mg Arformoterol Tartrate (Brovana) 15 mcg IH [id number] [facility] Last Admin: 09/05/17 07:33 Dose: 15 mcg Ciprofloxacin (Cipro) 500 mg PO Q12 [facility] PRN Reason: Protocol Stop: 09/09/17 13:01 Last Admin: 09/05/17 10:15 Dose: 500 mg Ferrous Sulfate (Feosol) 324 mg PO TID [facility] Last Admin: 09/05/17 09:49 Dose: 324 mg Furosemide (Lasix) 40 mg IVP DAILY [facility] Last Admin: 09/05/17 09:45 Dose: 40 mg Levalbuterol HCl (Xopenex) 1.25 mg IH [id number] [facility] Last Admin: 09/05/17 07:34 Dose: 1.25 mg Methylprednisolone (Solu-Medrol) 40 mg IVP Q8 [facility] Last Admin: 09/05/17 05:43 Dose: 40 mg Montelukast Sodium (Singulair) 10 mg PO HS [facility] Last Admin: 09/04/17 21:35 Dose: 10 mg Oxycodone HCl (Oxycodone Immediate Release Tab) 15 mg PO Q4H PRN PRN Reason: Pain, severe (8-10) Last Admin: 09/05/17 09:53 Dose: 15 mg Pantoprazole Sodium (Protonix Inj) 40 mg IVP Q12 [facility] Last Admin: 09/05/17 09:45 Dose: 40 mg Roflumilast (Daliresp) 500 mcg PO DAILY [facility] Last Admin: 09/05/17 09:49 Dose: 500 mcg Sotalol HCl (Betapace) 120 mg PO BID [facility] Last Admin: 09/05/17 09:46 Dose: 120 mg Tizanidine HCl (Zanaflex) 4 mg PO TID [facility] Last Admin: 09/05/17 09:55 Dose: 4 mg Zolpidem Tartrate (Ambien) 5 mg PO HS PRN; Protocol PRN Reason: Insomnia Stop: 09/07/17 23:59 - Labs Labs: 09/05/17 05:30 09/05/17 05:30 PT 11.4 SECONDS (9.4-12.5) 09/04/17 09:30 INR 0.99 (0.93-1.08) 09/04/17 09:30 APTT 21.6 Seconds (25.1-36.5) L 09/04/17 09:30 - Constitutional Appears: No Acute Distress - Eye Exam Eye Exam: Normal appearance. absent: Scleral icterus - ENT Exam ENT Exam: Mucous Membranes Moist - Neck Exam Neck Exam: Normal Inspection - Respiratory Exam Respiratory Exam: Decreased Breath Sounds, Rhonchi, Wheezes. absent: Respiratory Distress - Cardiovascular Exam Cardiovascular Exam: +S1, +S2 - GI/Abdominal Exam GI & Abdominal Exam: Soft, Tenderness (right upper quadrant no rebound or guarding), Normal Bowel Sounds. absent: Guarding, Rebound - Extremities Exam Extremities Exam: absent: Calf Tenderness, Pedal Edema - Neurological Exam Neurological Exam: Alert, Awake, Oriented x3 - Skin Skin Exam: Dry, Warm Assessment and Plan - Assessment and Plan (Free Text) Assessment: Assessment: Non-ST [place] Acute exacerbation of COPD GI bleed, rectal bleed Anemia status post 2 units of packed RBCs total Urinary tract infection History of chronic atrial fibrillation, status post cardiac ablation Plan: Monitor H&H , GI bleed and transfuse as necessary Continue Protonix twice a day On clear liquid On oral Cipro On Solu-Medrol abdominal US Consider endoscopy when patient is cardiopulmonary stable. Seen and discussed with Dr. Bansal. <Felicia Bansal V - Last Filed: 09/05/17 19:50> Objective - Vital Signs/Intake and Output Vital Signs (last 24 hours): Temp Pulse Resp BP Pulse Ox 97.6 F 68 20 104/54 L 93 L 09/05/17 16:41 09/05/17 19:30 09/05/17 19:30 09/05/17 19:30 09/05/17 19:30 - Medications Medications: Current Medications Acetaminophen (Tylenol 325mg Tab) 650 mg PO Q6H PRN PRN Reason: Pain, moderate (4-7) Last Admin: 09/02/17 22:10 Dose: 650 mg Alprazolam (Xanax) 0.25 mg PO TID [facility] PRN Reason: Protocol Stop: 09/11/17 14:01 Last Admin: 09/05/17 17:21 Dose: 0.25 mg Arformoterol Tartrate (Brovana) 15 mcg IH [id number] [facility] Last Admin: 09/05/17 19:30 Dose: 15 mcg Ciprofloxacin (Cipro) 500 mg PO Q12 [facility] PRN Reason: Protocol Stop: 09/09/17 13:01 Last Admin: 09/05/17 10:15 Dose: 500 mg Ferrous Sulfate (Feosol) 324 mg PO TID [facility] Last Admin: 09/05/17 17:20 Dose: 324 mg Furosemide (Lasix) 40 mg IVP DAILY [facility] Last Admin: 09/05/17 09:45 Dose: 40 mg Iron Sucrose 100 mg/ Sodium (Chloride) 105 mls @ 210 mls/hr IV DAILY [facility] Stop: 09/10/17 15:16 Last Admin: 09/05/17 16:39 Dose: 210 mls/hr Levalbuterol HCl (Xopenex) 1.25 mg IH [id number] [facility] Last Admin: 09/05/17 19:30 Dose: 1.25 mg Methylprednisolone (Solu-Medrol) 40 mg IVP Q12 [facility] Montelukast Sodium (Singulair) 10 mg PO HS [facility] Last Admin: 09/04/17 21:35 Dose: 10 mg Oxycodone HCl (Oxycodone Immediate Release Tab) 15 mg PO Q4H PRN PRN Reason: Pain, severe (8-10) Last Admin: 09/05/17 17:33 Dose: 15 mg Pantoprazole Sodium (Protonix Inj) 40 mg IVP Q12 [facility] Last Admin: 09/05/17 09:45 Dose: 40 mg Roflumilast (Daliresp) 500 mcg PO DAILY [facility] Last Admin: 09/05/17 09:49 Dose: 500 mcg Sotalol HCl (Betapace) 120 mg PO BID [facility] Last Admin: 09/05/17 17:21 Dose: 120 mg Tizanidine HCl (Zanaflex) 4 mg PO TID [facility] Last Admin: 09/05/17 17:22 Dose: 4 mg Zolpidem Tartrate (Ambien) 10 mg PO [facility] PRN Reason: Protocol Stop: 09/07/17 23:59 - Labs Labs: 09/05/17 05:30 09/05/17 05:30 PT 11.4 SECONDS (9.4-12.5) 09/04/17 09:30 INR 0.99 (0.93-1.08) 09/04/17 09:30 APTT 21.6 Seconds (25.1-36.5) L 09/04/17 09:30 Attending/Attestation - Attestation I have personally seen and examined this patient.: Yes I have fully participated in the care of the patient.: Yes I have reviewed all pertinent clinical information, including history, physical exam and plan: Yes Notes (Text): This is an addendum to GI progress report dictated by Kiki Vega APN.The patient was seen and examined earlier. Medical records, lab studies, imagings were reviewed. Last 24 hours events reviewed. Agreed with the above treatment plan as outlined in Kiki Vega APN's notes the with the addition of the following patient still on BiPAP Complains of some right upper quadrant discomfort Requested for ultrasound scan of the abdomen Would consider endoscopy evaluation once his cardio respiratory status optimized 09/05/17 19:49
--- NOTE | 2017-09-05 13:48 | PN ---
DATE: 09/05/2017 REASON FOR CONSULTATION AND FOLLOWUP: Followup cardiac evaluation, admitted with GI bleed, history of nonobstructive coronary artery disease, cardiomyopathy, atrial fibrillation, status post radiofrequency ablation, now is in normal sinus. SUBJECTIVE: The patient denies any chest pain, shortness of breath or any palpitation. OBJECTIVE GENERAL: Not in apparent distress. Complaining of sleeplessness, wanted Ambien at night. VITAL SIGNS: Temperature afebrile, heart rate 85, blood pressure 137/84. HEENT: PERRLA. Extraocular muscles intact. NECK: Supple. No carotid bruit or thyromegaly. CHEST: Clear to auscultation. HEART: S1, S2 regular. ABDOMEN: Soft. EXTREMITIES: Clubbing and cyanosis negative. LABORATORY DATA: Blood workup as follows: WBC 7.1, hemoglobin 10.8, hematocrit 35.9, and platelet count 198,000. Chemistry shows sodium 142, potassium 3.3, chloride 96, carbon dioxide 49, anion gap of 23, BUN 23, creatinine 0.7, total protein 6.3, albumin 3.2, albumin-globulin ratio 1. IMPRESSION: Hypokalemia; rectal bleed; anemia, status post packed red blood cell transfusion; history of paroxysmal atrial fibrillation, status post radiofrequency ablation, in normal sinus; history of cardiac catheterization; nonobstructive coronary artery disease; cardiomyopathy, improved; lumbar vertebral compression fracture. Last MUGA scan showed preserved LV function. RECOMMENDATIONS: Avoid NSAID. Discontinued Eliquis already. We will give one dose of at bedtime Ambien on the patient request. Continue sotalol. Continue gentle diuretics. CVS status is stable. When the patient is stable from GI point of view, can be discharged. Shaila Samuel MD
--- NOTE | 2017-09-05 14:19 | PN ---
DATE: SUBJECTIVE: The patient is 57 years old. Seen and examined. Still has shortness of breath. Anxious. He states he could not sleep last night. Complained of generalized weakness. No more rectal bleeding. Started on clear liquid. PHYSICAL EXAMINATION: VITAL SIGNS: He is afebrile, pulse 106, respirations 20, blood pressure 139/84. LUNGS: Bilateral diffusely decreased breath sounds, few expiratory rhonchi. HEART: S1 and S2 audible. Regular rate and rhythm. ABDOMEN: Soft, obese, nontender. No rebound. No guarding. NEUROLOGIC: The patient is awake, alert, oriented, able to communicate. LABORATORY EXAM: WBC 7.1, hemoglobin 10.8, hematocrit 35.9, platelet 198. Chemistry: Sodium 142, potassium 3.3, chloride 96, CO2 of 36, BUN 23, creatinine 0.7, blood sugar of 168. Urine positive for Citrobacter freundii. ASSESSMENT: 1. Chronic obstructive pulmonary disease exacerbation. 2. Nonischemic cardiomyopathy. 3. Rectal bleeding, probably secondary to anticoagulant. 4. History of atrial fibrillation, currently in sinus rhythm. 5. Urinary tract infection. 6. Chronic anemia. PLAN: The patient is scheduled for an endoscopy today. Follow up H and H. Continue nebulizer treatment. Will be given Ambien at the patient's request. His potassium has been supplemented. I will cut down his steroid to 40 q. 12. We will reevaluate the patient in the a.m. Follow up H and H in the a.m. Ross Bowman MD
--- NOTE | 2017-09-05 20:00 | US ---
EXAM: US Abdomen Complete EXAM DATE/TIME: 09/05/2017 1:05 PM CLINICAL HISTORY: The patient age is 57 years old and is male; Pain; Abdominal pain; Flank; Right upper quadrant (ruq); Additional info: Right sided abdominal pain Facility exam id and description: Us abd abdomen complete TECHNIQUE: Real-time ultrasound of the abdomen (complete) with image documentation. COMPARISON: CT - ABD PELVIS IV CONTRAST ONLY 2015-12-05 18:15 FINDINGS: Liver: The liver is increased in echogenicity, most commonly due to fatty infiltration, but other chronic liver diseases may have a similar appearance. The liver measures 16.6 x 13.3 cm. Gallbladder: No discrete gallstones are visualized. Upon remeasuring, gallbladder wall thickness is 3 mm. This is borderline thickened. The sonographic Leon sign is negative. Common bile duct: The common bile duct measures 6-7 mm in diameter, which is at the upper limits of normal. Pancreas: The pancreas is incompletely visualized. There is an ovoid focus of gas adjacent to the pancreatic head. Based on these images, it is indeterminate if this is intra-or extraluminal. Kidneys: The right kidney measures 11.4 x 4.8 x 6.1 cm. The cortical thickness of the right kidney is at the low end of normal. There is no hydronephrosis of the right kidney. The left kidney measures 11.7 x 5.2 x 5.3 cm. There is a mildly lobulated hypoechoic cyst at the mid to lower pole the left kidney measuring 2.6 x 2.0 x 2.6 cm. Internal septation is visualized, consistent with increased complexity. There is no hydronephrosis of the left kidney. No shadowing stones. Spleen: The spleen measures 14.5 x 5.3 cm and is normal in echotexture. Aorta: Not imaged. Inferior vena cava: The visualized IVC is patent. Free fluid: No para cholecystic fluid. IMPRESSION: 1. There is an ovoid focus of gas adjacent to the pancreatic head. Based on these images, it is indeterminate if this is intra-or extraluminal. Correlation with CT is recommended. 2. The liver is increased in echogenicity, most commonly due to fatty infiltration, but other chronic liver diseases may have a similar appearance. 3. Splenomegaly. 4. Mild complex left renal cyst. Follow-up ultrasonography is recommended. 5. There is borderline gallbladder wall thickening. No discrete gallstones are visualized. 6. Additional findings described above.
[2017-09-05] MEDS ORDERED: HYDROmorphone 1 mg/ml ISec IVP PRN (21:26)
--- NOTE | 2017-09-05 21:42 | RAD ---
EXAM: XR Abdomen, 2 Views EXAM DATE/TIME: 09/05/2017 8:58 PM CLINICAL HISTORY: The patient age is 57 years old and is male; Screening exam; Other: R/O free air Facility exam id and description: Rad abdp2 abdomen portable 2 views TECHNIQUE: Frontal view of the abdomen/pelvis with upright view of the abdomen. COMPARISON: CR - ABDOMEN (FLAT PLATE) 1VIEW 2015-11-19 12:24 FINDINGS: Lower thorax: Bibasilar atelectatic changes are identified. Intraperitoneal space: No free air is visualized underlying the hemidiaphragms on the upright view. Gastrointestinal tract: Dilated small bowel loops are identified within the central abdomen, suggestive of obstruction. Moderate fecal material is identified within the colon. Bones/joints: There is a linear band of lucency involving the right parasymphyseal pubic bone, likely contributed by gas within the rectum. Fracture cannot be excluded. Osteopenia. Soft tissues: The previously visualized foreign body/filled camera is again identified and is seen in the right lower quadrant. IMPRESSION: 1. No free air is visualized underlying the hemidiaphragms on the upright view. 2. Dilated small bowel loops are identified within the central abdomen, suggestive of obstruction. 3. There is a linear band of lucency involving the right parasymphyseal pubic bone, likely contributed by gas within the rectum. Fracture cannot be excluded. Clinical correlation is recommended. 4. The previously visualized foreign body/filled camera is again identified and is seen in the right lower quadrant. 5. A CT of the abdomen/pelvis is recommended, as clinically indicated.
--- NOTE | 2017-09-05 21:46 | RAD ---
EXAM: XR Chest, 1 View EXAM DATE/TIME: 09/05/2017 9:00 PM CLINICAL HISTORY: The patient age is 57 years old and is male; Screening exam; Other screening; Additional info: R/O free air Facility exam id and description: Rad chest p chest portable TECHNIQUE: Frontal view of the chest. COMPARISON: No relevant prior studies available. FINDINGS: Lungs: Bibasilar atelectatic changes are visualized. Otherwise, there is no visualized confluent infiltrate. There is a nodular opacity within the right lower lung zone measuring 1.4 cm in diameter. This is suggestive of a nipple shadow, although a parenchymal nodule cannot be excluded. The lateral left lung base extends out of the field of view of this study. Pleural space: No visualized pleural effusions. Evaluation for pleural effusion is limited by nonvisualization of the lateral left lung base. No pneumothorax. Heart: No cardiomegaly. Mediastinum: Unremarkable. Bones/joints: Hypertrophic degenerative changes are noted within the spine. IMPRESSION: 1. Bibasilar atelectatic changes are visualized. Otherwise, there is no visualized confluent infiltrate. 2. There is a nodular opacity within the right lower lung zone measuring 1.4 cm in diameter. This is suggestive of a nipple shadow, although a parenchymal nodule cannot be excluded. This could be further evaluated with CT. 3. The lateral left lung base extends out of the field of view of this study.
[2017-09-05] MEDS: Dextrose 5%/0.45% NS 1,000 ML IV SCH (21:49)
[2017-09-05] MEDS: HYDROmorphone 0.5 mg/0.5 ml ISec IVP PRN (21:58)
--- NOTE | 2017-09-05 22:09 | CP.PCM.PN ---
Subjective - Date & Time of Evaluation Date of Evaluation: 09/05/17 Time of Evaluation: 08:30 - Subjective Subjective: Pt was seen after I received a call from Dr Hartman at [facility] findings noted by him on the ultrasound study of his abdomen earlier today.He suspects air in the abdomen,is not sure if it is intraluminal or outside and suggested a CAT scan be done on his abdomen with iv contrast stat. Patient has been c/o of R upper abdominal pain since earlier .At present ,is not any worse than before. VS are stable.He is on continuous BIPAP. Chart reviewed.meds noted.they include steroids. PMH:Recent gastro intestinal bleed,COPD,Nonischemic cardiomyopathy,Afib,UTI, Anemia,DVT. Objective - Vital Signs/Intake and Output Vital Signs (last 24 hours): Temp Pulse Resp BP Pulse Ox 97.6 F 68 20 104/54 L 93 L 09/05/17 16:41 09/05/17 19:30 09/05/17 19:30 09/05/17 19:30 09/05/17 19:30 - Medications Medications: Current Medications Acetaminophen (Tylenol 325mg Tab) 650 mg PO Q6H PRN PRN Reason: Pain, moderate (4-7) Last Admin: 09/02/17 22:10 Dose: 650 mg Alprazolam (Xanax) 0.25 mg PO TID [facility] PRN Reason: Protocol Stop: 09/11/17 14:01 Last Admin: 09/05/17 17:21 Dose: 0.25 mg Arformoterol Tartrate (Brovana) 15 mcg IH [id number] [facility] Last Admin: 09/05/17 19:30 Dose: 15 mcg Ciprofloxacin (Cipro) 500 mg PO Q12 [facility] PRN Reason: Protocol Stop: 09/09/17 13:01 Last Admin: 09/05/17 21:37 Dose: Not Given Ferrous Sulfate (Feosol) 324 mg PO TID [facility] Last Admin: 09/05/17 17:20 Dose: 324 mg Furosemide (Lasix) 40 mg IVP DAILY [facility] Last Admin: 09/05/17 09:45 Dose: 40 mg Hydromorphone HCl (Dilaudid) 1 mg IVP Q4H PRN PRN Reason: Pain, moderate (4-7) Iron Sucrose 100 mg/ Sodium (Chloride) 105 mls @ 210 mls/hr IV DAILY [facility] Stop: 09/10/17 15:16 Last Admin: 09/05/17 16:39 Dose: 210 mls/hr Dextrose/Sodium Chloride (Dextrose 5%/0.45% Ns 1000 Ml) 1,000 mls @ 50 mls/hr IV .Q20H [facility] Levalbuterol HCl (Xopenex) 1.25 mg IH [id number] [facility] Last Admin: 09/05/17 19:30 Dose: 1.25 mg Methylprednisolone (Solu-Medrol) 40 mg IVP Q12 [facility] Montelukast Sodium (Singulair) 10 mg PO HS [facility] Last Admin: 09/05/17 21:37 Dose: Not Given Oxycodone HCl (Oxycodone Immediate Release Tab) 15 mg PO Q4H PRN PRN Reason: Pain, severe (8-10) Last Admin: 09/05/17 17:33 Dose: 15 mg Pantoprazole Sodium (Protonix Inj) 40 mg IVP Q12 [facility] Last Admin: 09/05/17 09:45 Dose: 40 mg Roflumilast (Daliresp) 500 mcg PO DAILY [facility] Last Admin: 09/05/17 09:49 Dose: 500 mcg Sotalol HCl (Betapace) 120 mg PO BID [facility] Last Admin: 09/05/17 17:21 Dose: 120 mg Tizanidine HCl (Zanaflex) 4 mg PO TID [facility] Last Admin: 09/05/17 17:22 Dose: 4 mg Zolpidem Tartrate (Ambien) 10 mg PO [facility] PRN Reason: Protocol Stop: 09/07/17 23:59 Last Admin: 09/05/17 21:36 Dose: Not Given - Labs Labs: 09/05/17 05:30 09/05/17 05:30 PT 11.4 SECONDS (9.4-12.5) 09/04/17 09:30 INR 0.99 (0.93-1.08) 09/04/17 09:30 APTT 21.6 Seconds (25.1-36.5) L 09/04/17 09:30 - Constitutional Appears: Chronically Ill, Other (mildly dyspneic ) - Head Exam Head Exam: ATRAUMATIC, NORMAL INSPECTION, NORMOCEPHALIC - Eye Exam Eye Exam: PERRL - ENT Exam ENT Exam: Mucous Membranes Moist - Neck Exam Neck Exam: Normal Inspection - Respiratory Exam Respiratory Exam: Decreased Breath Sounds, Respiratory Distress (mildly dyspneic ) - Cardiovascular Exam Cardiovascular Exam: REGULAR RHYTHM - GI/Abdominal Exam GI & Abdominal Exam: Soft, Tenderness (in RUQ), Normal Bowel Sounds. absent: Rebound - Extremities Exam Extremities Exam: Normal Inspection. absent: Calf Tenderness, Pedal Edema - Neurological Exam Neurological Exam: Alert, Oriented x3 - Psychiatric Exam Psychiatric exam: Anxious - Skin Skin Exam: Dry, Warm Assessment and Plan - Assessment and Plan (Free Text) Assessment: RUQ pain Plan: Discussed with Dr Bowman,then With Dr Bansal. Cat scan of the Abdomen and Pelvis with no iv or po contrast ordered stat. (Since pt is on steroids there is possibility of perforation.) Due to pt being on continuous Bipap cat scan was cancelled ,Xray Abdomen,flat and upright views ordered stat. Additional orders placed. Pt is NPO ,Surgical consult was ordered.
--- NOTE | 2017-09-05 23:33 | CP.PCM.CON ---
History of Present Illness - History of Present Illness History of Present Illness: GENERAL SURGERY CONSULT NOTE FOR DR. LOCKETT 57yo M with PMHx of COPD on home O2 & prednisone, OH, HTN, DM, CHF, A fib w/ RVR s/p recent ablation, DVT on Eliquis. Surgery consulted for SBO and rule out free air. He initially presented on 09/02 to the ED for SOB and intermittent fever and chills. He also reported a sore throat and had hemoccult positive stool. He was admitted for GI bleed and COPD exacerbation. His Hgb went from 7.2 to 6.8 and he was transfused 2 units PRBC. He was put on a protonix drip and his Eliquis was held. On 09/04, his GI bleed had resolved so his protonix drip was stopped and he was started on CLD. GI planning to do colonoscopy & EGD when optimized. Today, on 09/05, he complained of RUQ pain. An US was done which showed no gallstones; fatty liver; splenomegaly; a focus of gas adjacent to pancreatic head - indeterminate if intra or extraluminal. A CT was ordered but not done yet due to patient being on continuous BIPAP. A CXR was done which did not show any free air. An abdominal X-ray was done which showed dilated loops of small bowel - possible obstruction. The patient states that his abdominal pain has been present for about 2-3 months, on and off. The pain is worse with eating ( any type of food). He denies nausea or vomiting but does have some heartburn. His last BM was / and it was bloody. He has not had any bloody BMs since then. He last passed flatus today. PMHx: COPD on home O2 3L and prednisone, OH, HTN, DM, CHF, A fib w/ RVR s/p recent ablation, chronic anemia, anxiety, chronic pain on oxycodone for spinal compressions, DVT on Eliquis Previous endoscopy & colonoscopy done 2 years ago which showed multiple polyps. Surgeries: colon surgery x2 as a 1 year old after swallowing a coin ( appendectomy done at that time) Allergies: none Social history: former smoker, former heroin and opioid use Review of Systems - Review of Systems All systems: reviewed and no additional remarkable complaints except (as per HPI ) Past Patient History - Infectious Disease Hx of Infectious Diseases: None - Tetanus Immunizations Tetanus Immunization: Unknown - Past Medical History & Family History Past Medical History?: Yes - Past Social History Smoking Status: Former Smoker - CARDIAC Hx Cardiac Disorders: Yes (OH) Hx Congestive Heart Failure: Yes Hx Hypertension: Yes - PULMONARY Hx Chronic Obstructive Pulmonary Disease (COPD): Yes - NEUROLOGICAL Hx Neurological Disorder: No - HEENT Hx HEENT Problems: Yes (CONTACTS,WEARS RX GLASSES AT TIMES,H/O OF NOSEBLEEDS) Other/Comment: nosebleeds - RENAL Hx Chronic Kidney Disease: No - ENDOCRINE/METABOLIC Other/Comment: steroid induced diabetes - HEMATOLOGICAL/ONCOLOGICAL Hx Blood Disorders: Yes Hx Anemia: Yes (blood transfusion) - INTEGUMENTARY Other/Comment: tatoo r arm - MUSCULOSKELETAL/RHEUMATOLOGICAL Hx Falls: No - GASTROINTESTINAL Hx Gastrointestinal Disorders: Yes (appendectomy,colon sx,gerd) - GENITOURINARY/GYNECOLOGICAL Hx Genitourinary Disorders: No Hx Reproductive Disorders: No - PSYCHIATRIC Hx Anxiety: Yes Hx Substance Use: No - SURGICAL HISTORY Hx Appendectomy: Yes (54 yrs ago) Other/Comment: colon sx x2 as a child swallowed coins, bx and polypectomy, egd and colonoscopy - ANESTHESIA Hx Anesthesia: Yes Hx Anesthesia Reactions: No Hx Malignant Hyperthermia: No Meds Allergies/Adverse Reactions: Allergies Allergy/AdvReac Type Severity Reaction Status Date / Time No Known Allergies Allergy Verified 09/02/17 14:51 - Medications Medications: Current Medications Acetaminophen (Tylenol 325mg Tab) 650 mg PO Q6H PRN PRN Reason: Pain, moderate (4-7) Last Admin: 09/02/17 22:10 Dose: 650 mg Alprazolam (Xanax) 0.25 mg PO TID [facility] PRN Reason: Protocol Stop: 09/11/17 14:01 Last Admin: 09/05/17 17:21 Dose: 0.25 mg Arformoterol Tartrate (Brovana) 15 mcg IH [id number] [facility] Last Admin: 09/05/17 19:30 Dose: 15 mcg Ciprofloxacin (Cipro) 500 mg PO Q12 ERNESTINA PRN Reason: Protocol Stop: 09/09/17 13:01 Last Admin: 09/05/17 21:37 Dose: Not Given Ferrous Sulfate (Feosol) 324 mg PO TID [facility] Last Admin: 09/05/17 17:20 Dose: 324 mg Furosemide (Lasix) 40 mg IVP DAILY [facility] Last Admin: 09/05/17 09:45 Dose: 40 mg Hydromorphone HCl (Dilaudid) 1 mg IVP Q4 PRN PRN Reason: Pain, moderate (4-7) Last Admin: 09/05/17 21:58 Dose: 1 mg Iron Sucrose 100 mg/ Sodium (Chloride) 105 mls @ 210 mls/hr IV DAILY [facility] Stop: 09/10/17 15:16 Last Admin: 09/05/17 16:39 Dose: 210 mls/hr Dextrose/Sodium Chloride (Dextrose 5%/0.45% Ns 1000 Ml) 1,000 mls @ 50 mls/hr IV .Q20H [facility] Last Admin: 09/05/17 21:49 Dose: 50 mls/hr Levalbuterol HCl (Xopenex) 1.25 mg IH [id number] [facility] Last Admin: 09/05/17 19:30 Dose: 1.25 mg Methylprednisolone (Solu-Medrol) 40 mg IVP Q12 [facility] Last Admin: 09/05/17 21:49 Dose: 40 mg Montelukast Sodium (Singulair) 10 mg PO HS [facility] Last Admin: 09/05/17 21:37 Dose: Not Given Oxycodone HCl (Oxycodone Immediate Release Tab) 15 mg PO Q4H PRN PRN Reason: Pain, severe (8-10) Last Admin: 09/05/17 17:33 Dose: 15 mg Pantoprazole Sodium (Protonix Inj) 40 mg IVP Q12 [facility] Last Admin: 09/05/17 21:48 Dose: 40 mg Roflumilast (Daliresp) 500 mcg PO DAILY [facility] Last Admin: 09/05/17 09:49 Dose: 500 mcg Sotalol HCl (Betapace) 120 mg PO BID [facility] Last Admin: 09/05/17 17:21 Dose: 120 mg Tizanidine HCl (Zanaflex) 4 mg PO TID [facility] Last Admin: 09/05/17 17:22 Dose: 4 mg Zolpidem Tartrate (Ambien) 10 mg PO [facility] PRN Reason: Protocol Stop: 09/07/17 23:59 Last Admin: 09/05/17 21:36 Dose: Not Given Physical Exam - Constitutional Appears: No Acute Distress, In Acute Distress - Head Exam Head Exam: ATRAUMATIC, NORMAL INSPECTION - Respiratory Exam Respiratory Exam: NORMAL BREATHING PATTERN (on BIPAP). absent: Respiratory Distress - Cardiovascular Exam Cardiovascular Exam: +S1, +S2 - GI/Abdominal Exam GI & Abdominal Exam: Distended (tympanic to percussion), Tenderness (mild tenderness bilateral upper abdomen, more so in RUQ). absent: Firm, Guarding, Rebound, Rigid - Neurological Exam Neurological exam: Alert, CN II-XII Intact, Oriented x3 - Psychiatric Exam Psychiatric exam: Normal Affect, Normal Mood - Skin Skin Exam: Dry, Normal Color, Warm Results - Vital Signs Recent Vital Signs: Last Vital Signs Temp 98.4 F 09/05/17 23:10 Pulse 69 09/05/17 22:47 Resp 24 09/05/17 22:47 BP 164/71 H 09/05/17 22:47 Pulse Ox 91 L 09/05/17 22:47 - Labs Result Diagrams: 09/05/17 05:30 09/05/17 05:30 Labs: Laboratory Results - last 24 hr 09/05/17 09/05/17 09/05/17 05:30 05:30 05:30 WBC 7.1 D RBC 4.20 Hgb 10.8 L Hct 35.9 L MCV 85.5 MCH 25.7 MCHC 30.1 L RDW 18.4 H Plt Count 198 MPV 9.2 Sodium 142 Potassium 3.3 L Chloride 96 L Carbon Dioxide 36 H Anion Gap 14 BUN 23 H Creatinine 0.7 L Est GFR ( Amer) > 60 Est GFR (Non-Af Amer) > 60 Random Glucose 168 H Calcium 9.7 Total Bilirubin 0.5 AST 26 ALT 28 Alkaline Phosphatase 96 NT-Pro-B Natriuret Pep 889 H Total Protein 6.3 Albumin 3.2 Globulin 3.1 Albumin/Globulin Ratio 1.0 L Procalcitonin < 0.05 L Assessment & Plan - Assessment and Plan (Free Text) Assessment: 57yo M with PMHx of COPD on home O2 & prednisone, [place], HTN, DM, CHF, A fib w/ RVR s/p recent ablation, DVT on Eliquis. Surgery consulted for SBO and rule out free air. - Afebrile, Hemodynamically stable, good urine output - No free air on CXR, no peritoneal signs on abdominal exam - Will FU CT - NPO, IV fluids - Serial abdominal exams - Discussed with patient effect of opioids on constipation - Discussed plan with Dr. Bansal - Discussed plan with Dr. Janeth Chew PGY-3
[2017-09-06] MEDS: Levalbuterol 1.25 MG/3 ML Inhal Soln UD IH SCH ×4 (01:50→19:30)
[2017-09-06] MEDS: HYDROmorphone 0.5 mg/0.5 ml ISec IVP PRN ×6 (01:52→21:46)
--- NOTE | 2017-09-06 02:17 | PN ---
DATE: 09/05/2017 PULMONARY PROGRESS NOTE REFERRING PHYSICIAN: Ross Bowman MD. SUBJECTIVE: He is lying in the bed, head at 45 degrees. He is still on noninvasive ventilation with failed attempt to wean off noninvasive ventilation. Got short of breath. No nausea, no vomiting, and no diarrhea. No leg pain or leg swelling. OBJECTIVE: GENERAL: In no acute distress. VITAL SIGNS: Temperature is 98, heart rate is 68, respiratory rate is 20, blood pressure 104/54, and pulse ox 94% on noninvasive ventilation. HEENT: Showed thick neck. LUNGS: Prolonged expiratory phase with some wheezing. HEART: S1 and S2. ABDOMEN: Soft. Nontender. No organomegaly. EXTREMITIES: No edema. NEUROLOGIC: Awake and alert. Follows simple commands. LABORATORY DATA: Shows hemoglobin 10.8, hematocrit 35.9, WBC 7.1, and platelets 198. Sodium 142, potassium 3.3, chloride 96, bicarbonate 36, BUN 23, creatinine 0.7, glucose is 168, calcium 9.7. AST 27, ALT 28, alkaline phosphatase is 96, proBNP 889, albumin is 3.2, and procalcitonin 0.05. Urine culture: Citrobacter freundii. Had an abdominal ultrasound done, with some void focus of gas adjacent to pancreatic head, liver is increased in echogenicity, and renal cyst. MEDICATIONS: He is on Ambien 10 mg daily, sotalol 120 mg twice a day, Brovana inhale twice a day, Cipro 500 mg twice a day, Daliresp 500 mg daily, ferrous sulfate 324 mg three times a day, iron supplement, Lasix 40 mg daily, OxyContin immediate release 15 mg q.4 hours p.r.n., Protonix 40 mg twice a day, Singulair 10 mg daily, Solu-Medrol 40 mg q.12 hours, Tylenol p.r.n., Xanax 0.25 mg 3 times a day, mg q.6 hours p.r.n., and Zanaflex 4 mg 3 times a day. IMPRESSION AND PLAN: Severe anemia, probably secondary to gastrointestinal bleed, chronic obstructive lung disease, respiratory failure requiring noninvasive ventilation, status post T9-T10 compression fracture, coronary artery disease, and history of atrial fibrillation. Pulmonary point of view, back on Solu-Medrol 40 mg twice a day. I think severe anemia is one of the cause to get him off noninvasive ventilation. His hemoglobin should be 15-16 when consider extensive chronic lung disease, so we will continue IV and inhaled bronchodilator, continue attempt to wean off BiPAP, continue attempt to optimize hemoglobin. Gastric prophylaxis. Sequential compressive device to lower extremities. Followup labs in the morning. Critical care time more than 35 minutes. Thank you and we will follow with you. Shaila Mercado MD
--- NOTE | 2017-09-06 02:36 | CON ---
DATE: 09/05/2017 HISTORY OF PRESENT ILLNESS: The patient is a 57-year-old male well known to me from prior admissions as well as the office with known iron-deficiency anemia secondary to GI bleeding. He has history of intermittent rectal bleeding over several years, but has worsened over the last week, presented to the emergency room with hemoglobin of 7.2 on admission, now status post PRBC transfusion. Feels better, though his shortness of breath has not improved. He is currently on BiPAP, still in the ICU and his shortness of breath continues. Denies any fevers or chills. Does have generalized weakness and shortness of breath, and he has not followed up in the office in several months now. Has changed appointments several times and then canceled on multiple occasions. PAST MEDICAL HISTORY: Significant for congestive heart failure, emphysema, chronic AFib, recent ablation for chronic AFib in [facility], intractable back pain secondary to T4, T10 compression as well as chronic known iron-deficiency anemia secondary to AV malformations. ALLERGIES: HE DENIES ANY ALLERGIES TO ANY MEDICATIONS. MEDICATIONS: He takes multiple medications at home including Zanaflex, ferrous sulfate, Protonix, aspirin, Lasix, Eliquis, Daliresp, potassium, oxycodone as well as prednisone and Linzess. SOCIAL HISTORY: Positive for alcohol and drug abuse in the past as well as tobacco abuse. Currently on methadone, but denies any active use. FAMILY HISTORY: Noncontributory. REVIEW OF SYSTEMS: As per the HPI. PHYSICAL EXAMINATION: VITAL SIGNS: Reveal a temperature of 97.5, pulse of 106, respiratory rate of 28, and a blood pressure of 139/84. GENERAL: The patient is a middle-aged male lying in bed in moderate respiratory distress despite BiPAP machine on, and his O2 sats are running in the low 90s. HEENT: Head and neck: Normocephalic and atraumatic. Eyes: Pupils equal, round, reactive to light and accommodation. Extraocular muscles are intact. There is some pallor. No icterus is noted. NECK: Supple with no adenopathy. No JVD. No thyromegaly. LUNGS: Bilateral rhonchi are heard. CARDIOVASCULAR: S1, S2 is heard. Patient is tachycardic. ABDOMEN: Positive bowel sounds. Soft, nontender, nondistended. No organomegaly is palpated. EXTREMITIES: There is no edema, clubbing, or cyanosis. LABORATORY DATA: His labs reveal a white count of 7.1, hemoglobin of 10.8, hematocrit of 35.9, MCV of 85.5, and a platelet count of 198. Chemistries are within normal limits except for a low potassium and an elevated BUN of 23. Iron studies are not done on this admission. ASSESSMENT AND PLAN: Middle-aged male with known iron-deficiency anemia secondary to chronic gastrointestinal bleed from arteriovenous malformations as well as varices. He has had multiple procedures done with no active bleeding source identified including a capsule endoscopy which was embedded, and subsequently he required an operation to have that removed. Currently, admitted with a hemoglobin of 7.2, now packed red blood cells transfusion, his hemoglobin has improved. We will check iron studies and likely start the patient on intravenous Venofer. Continue current management as per Pulmonary and Critical Care Team for his shortness of breath, which is multifactorial secondary to congestive heart failure and chronic obstructive pulmonary disease. Hold Eliquis at this point. Thank you for the consult. We will follow. Minal Collins MD
[2017-09-06 06:20] LABS: HEMOGLOBIN 11.1 g/dL (14.0-18.0); MEAN CELL VOLUME 87.6 fl (80.0-105.0); MEAN CORPUSCULAR HEMOGLOBIN 25.9 pg (25.0-35.0); MEAN CORPUSCULAR HGB CONC 29.6 g/dl (31.0-37.0); MEAN PLATELET VOLUME 9.4 fl (7.0-11.0); RBC 4.28 10^6/uL (3.5-6.1); RED CELL DISTRIBUTION WIDTH 18.5 % (11.5-14.5); WHITE BLOOD COUNT 12.3 10^3/ul (4.5-11.0)
[2017-09-06 06:37] LABS: IRON 152 ug/dL (45-180)
[2017-09-06 06:54] LABS: % IRON SATURATION 49 % (20-55); TOTAL IRON BINDING CAPACITY 309 ug/dL (261-462)
[2017-09-06] MEDS: Arformoterol 15 mcg/2 ml Inh Sol IH SCH ×2 (07:24→19:30)
[2017-09-06] MEDS ORDERED: Barium Sulfate Susp 2.1% w/v, 2.0% w/w 450 mL Bottle PO ONE (07:45)
[2017-09-06 08:00] LABS: ALB/GLOB RATIO 1.1 (1.1-1.8); ALBUMIN 3.7 g/dL (3.0-4.8); ALT/SGPT 30 U/L (7-56); AST/SGOT 44 U/L (17-59); BLOOD UREA NITROGEN 29 mg/dL (7-21); CALCIUM 9.7 mg/dL (8.4-10.5); GFR AFRICAN-AMERICAN > 60; GFR NON-AFRICAN AMERICAN > 60
[2017-09-06] MEDS ORDERED: Iohexol 350 MG/100 ML VIAL ONE ×2 (08:16→15:41)
[2017-09-06] MEDS: MethylPREDNISolone 40 mg Vial IVP SCH ×2 (09:10→21:49)
--- NOTE | 2017-09-06 10:21 | CP.PCM.PN ---
Subjective - Date & Time of Evaluation Date of Evaluation: 09/06/17 Time of Evaluation: 10:17 - Subjective Subjective: Surgery: Dr. Fowler Patient remains in ICU on BiPAP. Patient with increase work of breathing. Patient reports abdominal pain, directly under rib cage bilaterally, right > left. No n/v/f/c. +BM this am. No hematochezia or melena. Objective - Vital Signs/Intake and Output Vital Signs (last 24 hours): Temp Pulse Resp BP Pulse Ox 98.9 F 81 55 H 142/66 94 L 09/06/17 06:00 09/06/17 08:50 09/06/17 07:00 09/06/17 09:08 09/06/17 07:00 Intake and Output: 09/06/17 09/06/17 06:59 18:59 Intake Total 400 Output Total 650 Balance -250 - Medications Medications: Current Medications Acetaminophen (Tylenol 325mg Tab) 650 mg PO Q6H PRN PRN Reason: Pain, moderate (4-7) Last Admin: 09/02/17 22:10 Dose: 650 mg Alprazolam (Xanax) 0.5 mg PO TID PRN; Protocol PRN Reason: Anxiety Last Admin: 09/06/17 09:08 Dose: 0.5 mg Arformoterol Tartrate (Brovana) 15 mcg IH [id number] [facility] Last Admin: 09/06/17 07:24 Dose: 15 mcg Ciprofloxacin (Cipro) 500 mg PO Q12 ERNESTINA PRN Reason: Protocol Stop: 09/09/17 13:01 Last Admin: 09/06/17 09:08 Dose: 500 mg Ferrous Sulfate (Feosol) 324 mg PO TID [facility] Last Admin: 09/06/17 09:08 Dose: 324 mg Furosemide (Lasix) 40 mg IVP DAILY [facility] Last Admin: 09/06/17 09:08 Dose: 40 mg Hydromorphone HCl (Dilaudid) 1 mg IVP Q4 PRN PRN Reason: Pain, moderate (4-7) Last Admin: 09/06/17 10:11 Dose: 1 mg Iron Sucrose 100 mg/ Sodium (Chloride) 105 mls @ 210 mls/hr IV DAILY [facility] Stop: 09/10/17 15:16 Last Admin: 09/06/17 09:14 Dose: 210 mls/hr Dextrose/Sodium Chloride (Dextrose 5%/0.45% Ns 1000 Ml) 1,000 mls @ 50 mls/hr IV .Q20H [facility] Last Admin: 09/05/17 21:49 Dose: 50 mls/hr Potassium Chloride (Potassium Chloride 10 Meq/100 Ml) 10 meq in 100 mls @ 50 mls/hr IVPB ONCE ONE Stop: 09/06/17 12:15 Levalbuterol HCl (Xopenex) 1.25 mg IH [id number] [facility] Last Admin: 09/06/17 07:24 Dose: 1.25 mg Methylprednisolone (Solu-Medrol) 40 mg IVP Q12 [facility] Last Admin: 09/06/17 09:10 Dose: 40 mg Montelukast Sodium (Singulair) 10 mg PO [facility] Last Admin: 09/05/17 21:37 Dose: Not Given Oxycodone HCl (Oxycodone Immediate Release Tab) 15 mg PO Q4H PRN PRN Reason: Pain, severe (8-10) Last Admin: 09/05/17 17:33 Dose: 15 mg Pantoprazole Sodium (Protonix Inj) 40 mg IVP Q12 [facility] Last Admin: 09/06/17 09:10 Dose: 40 mg Roflumilast (Daliresp) 500 mcg PO DAILY [facility] Last Admin: 09/06/17 09:08 Dose: 500 mcg Sotalol HCl (Betapace) 120 mg PO BID [facility] Last Admin: 09/06/17 09:07 Dose: 120 mg Tizanidine HCl (Zanaflex) 4 mg PO TID [facility] Last Admin: 09/06/17 09:13 Dose: 4 mg Zolpidem Tartrate (Ambien) 10 mg PO [facility] PRN Reason: Protocol Stop: 09/07/17 23:59 Last Admin: 09/05/17 21:36 Dose: Not Given - Labs Labs: 09/06/17 05:30 09/06/17 05:30 PT 11.4 SECONDS (9.4-12.5) 09/04/17 09:30 INR 0.99 (0.93-1.08) 09/04/17 09:30 APTT 21.6 Seconds (25.1-36.5) L 09/04/17 09:30 - Constitutional Appears: Other (increased work of breathing ) - Head Exam Head Exam: ATRAUMATIC, NORMOCEPHALIC - Eye Exam Eye Exam: EOMI, Normal appearance - ENT Exam ENT Exam: Mucous Membranes Dry - Respiratory Exam Respiratory Exam: Respiratory Distress (on BiPAP) - Cardiovascular Exam Cardiovascular Exam: REGULAR RHYTHM. absent: Tachycardia - GI/Abdominal Exam GI & Abdominal Exam: Soft, Tenderness (bilateral mild tenderness to palpation, neg jiang's ). absent: Distended, Guarding, Rebound - Extremities Exam Extremities Exam: Normal Inspection. absent: Calf Tenderness - Neurological Exam Neurological Exam: Alert, Awake - Psychiatric Exam Psychiatric exam: Normal Affect, Normal Mood - Skin Skin Exam: Dry, Normal Color, Warm Assessment and Plan - Assessment and Plan (Free Text) Assessment: 57 y/o male w/ abdominal pain, could be secondary to MSK due to increase work of breathing Plan: -abd u/s with "foci of air", recommending repeating U/S study to obtain multiple views of area of concern -most likely represents GB vs intraluminal air -patient respiratory status not able to tolerate laying flat to CT scan -no acute surgical intervention at this time -cont strict Is&Os -f/u am labs -pain control -d/w Dr. Fowler [facility], [place], operated by [facility] PGY3
--- NOTE | 2017-09-06 10:56 | CP.PCM.PN ---
<Kiki Vega - Last Filed: 09/06/17 10:55> Subjective - Date & Time of Evaluation Date of Evaluation: 09/06/17 Time of Evaluation: 09:35 - Subjective Subjective: Seen and examined at the bedside earlier today, chart review. Patient does complain of epigastric burning, no reports of nausea or vomiting. Continues to have right upper quadrant pain. Reported to have a large hard bowel movement last night, no reports of melena or bright red blood per rectum. Abdominal ultrasound findings and abdominal x-ray findings are noted, patient has been evaluated by surgery, remains nothing by mouth. Patient remains on BiPAP with complaints of shortness of breath at times, patient attempted to be weaned off but continues to desaturate with labored breathing. Patient is pending CT scan of abdomen and pelvis when optimal.Passing gas as per patient. Objective - Vital Signs/Intake and Output Vital Signs (last 24 hours): Temp Pulse Resp BP Pulse Ox 98.9 F 81 55 H 142/66 94 L 09/06/17 06:00 09/06/17 08:50 09/06/17 07:00 09/06/17 09:08 09/06/17 07:00 Intake and Output: 09/06/17 09/06/17 06:59 18:59 Intake Total 400 Output Total 650 Balance -250 - Medications Medications: Current Medications Acetaminophen (Tylenol 325mg Tab) 650 mg PO Q6H PRN PRN Reason: Pain, moderate (4-7) Last Admin: 09/02/17 22:10 Dose: 650 mg Alprazolam (Xanax) 0.5 mg PO TID PRN; Protocol PRN Reason: Anxiety Last Admin: 09/06/17 09:08 Dose: 0.5 mg Arformoterol Tartrate (Brovana) 15 mcg IH [id number] [facility] Last Admin: 09/06/17 07:24 Dose: 15 mcg Ciprofloxacin (Cipro) 500 mg PO Q12 ERNESTINA PRN Reason: Protocol Stop: 09/09/17 13:01 Last Admin: 09/06/17 09:08 Dose: 500 mg Ferrous Sulfate (Feosol) 324 mg PO TID [facility] Last Admin: 09/06/17 09:08 Dose: 324 mg Furosemide (Lasix) 40 mg IVP DAILY [facility] Last Admin: 09/06/17 09:08 Dose: 40 mg Hydromorphone HCl (Dilaudid) 1 mg IVP Q4 PRN PRN Reason: Pain, moderate (4-7) Last Admin: 09/06/17 10:11 Dose: 1 mg Iron Sucrose 100 mg/ Sodium (Chloride) 105 mls @ 210 mls/hr IV DAILY [facility] Stop: 09/10/17 15:16 Last Admin: 09/06/17 09:14 Dose: 210 mls/hr Dextrose/Sodium Chloride (Dextrose 5%/0.45% Ns 1000 Ml) 1,000 mls @ 50 mls/hr IV .Q20H [facility] Last Admin: 09/05/17 21:49 Dose: 50 mls/hr Potassium Chloride (Potassium Chloride 10 Meq/100 Ml) 10 meq in 100 mls @ 50 mls/hr IVPB ONCE ONE Stop: 09/06/17 12:15 Last Admin: 09/06/17 10:24 Dose: 50 mls/hr Levalbuterol HCl (Xopenex) 1.25 mg IH [id number] [facility] Last Admin: 09/06/17 07:24 Dose: 1.25 mg Methylprednisolone (Solu-Medrol) 40 mg IVP Q12 [facility] Last Admin: 09/06/17 09:10 Dose: 40 mg Montelukast Sodium (Singulair) 10 mg PO [facility] Last Admin: 09/05/17 21:37 Dose: Not Given Oxycodone HCl (Oxycodone Immediate Release Tab) 15 mg PO Q4H PRN PRN Reason: Pain, severe (8-10) Last Admin: 09/05/17 17:33 Dose: 15 mg Pantoprazole Sodium (Protonix Inj) 40 mg IVP Q12 [facility] Last Admin: 09/06/17 09:10 Dose: 40 mg Roflumilast (Daliresp) 500 mcg PO DAILY [facility] Last Admin: 09/06/17 09:08 Dose: 500 mcg Sotalol HCl (Betapace) 120 mg PO BID [facility] Last Admin: 09/06/17 09:07 Dose: 120 mg Tizanidine HCl (Zanaflex) 4 mg PO TID [facility] Last Admin: 09/06/17 09:13 Dose: 4 mg Zolpidem Tartrate (Ambien) 10 mg PO [facility] PRN Reason: Protocol Stop: 02/08/18 23:59 Last Admin: 09/05/17 21:36 Dose: Not Given - Labs Labs: 09/06/17 05:30 09/06/17 05:30 PT 11.4 SECONDS (9.4-12.5) 09/04/17 09:30 INR 0.99 (0.93-1.08) 09/04/17 09:30 APTT 21.6 Seconds (25.1-36.5) L 09/04/17 09:30 - Constitutional Appears: No Acute Distress - Eye Exam Eye Exam: Normal appearance. absent: Scleral icterus - ENT Exam ENT Exam: Mucous Membranes Moist - Respiratory Exam Respiratory Exam: NORMAL BREATHING PATTERN (labored at times, on BIPAP). absent : Respiratory Distress - Cardiovascular Exam Cardiovascular Exam: +S1, +S2 - GI/Abdominal Exam GI & Abdominal Exam: Distended, Soft, Tenderness (RUQ), Normal Bowel Sounds. absent: Guarding, Rebound - Extremities Exam Extremities Exam: absent: Calf Tenderness, Pedal Edema - Neurological Exam Neurological Exam: Alert, Awake, Oriented x3 - Skin Skin Exam: Dry, Warm Assessment and Plan - Assessment and Plan (Free Text) Assessment: Assessment: RUQ abdominal pain, s/p US, "ovid gas adjacent to pancreas, abd xray reports: Dilated small bowel loops, ? obstruction Non-STEMI Acute exacerbation of COPD GI bleed, rectal bleed Anemia status post 2 units of packed RBCs total Urinary tract infection History of chronic atrial fibrillation, status post cardiac ablation Plan: Monitor H&H , GI bleed and transfuse as necessary Continue Protonix twice a day NPO, continue IVF for hydration On oral Cipro On Solu-Medrol SCD for dvt prophlaxsis surgery on board for repeat abdominal US pending ct scan of A&P when respiratory status improves, on BIPAP Consider endoscopy when patient is cardiopulmonary stable. Seen and discussed with Dr. Bansal. <Felicia Bansal V - Last Filed: 09/06/17 23:39> Objective - Vital Signs/Intake and Output Vital Signs (last 24 hours): Temp Pulse Resp BP Pulse Ox 97.9 F 79 20 142/66 94 L 09/06/17 18:00 09/06/17 17:01 09/06/17 19:50 09/06/17 09:08 09/06/17 07:00 - Medications Medications: Current Medications Acetaminophen (Tylenol 325mg Tab) 650 mg PO Q6H PRN PRN Reason: Pain, moderate (4-7) Last Admin: 09/02/17 22:10 Dose: 650 mg Alprazolam (Xanax) 0.5 mg PO TID PRN; Protocol PRN Reason: Anxiety Last Admin: 09/06/17 22:10 Dose: 0.5 mg Arformoterol Tartrate (Brovana) 15 mcg IH [id number] [facility] Last Admin: 09/06/17 19:30 Dose: 15 mcg Artificial Tears (Refresh Opth Soln) 0.3 ml OU Q8H PRN PRN Reason: Dry eyes Ciprofloxacin (Cipro) 500 mg PO Q12 ERNESTINA PRN Reason: Protocol Stop: 09/09/17 13:01 Last Admin: 09/06/17 21:46 Dose: 500 mg Ferrous Sulfate (Feosol) 324 mg PO TID [facility] Last Admin: 09/06/17 17:08 Dose: 324 mg Furosemide (Lasix) 40 mg IVP DAILY [facility] Last Admin: 09/06/17 09:08 Dose: 40 mg Hydromorphone HCl (Dilaudid) 1 mg IVP Q4 PRN PRN Reason: Pain, moderate (4-7) Last Admin: 09/06/17 21:46 Dose: 0.5 mg Iron Sucrose 100 mg/ Sodium (Chloride) 105 mls @ 210 mls/hr IV DAILY [facility] Stop: 09/10/17 15:16 Last Admin: 09/06/17 09:14 Dose: 210 mls/hr Dextrose/Sodium Chloride (Dextrose 5%/0.45% Ns 1000 Ml) 1,000 mls @ 50 mls/hr IV .Q20H [facility] Last Admin: 09/06/17 17:15 Dose: 50 mls/hr Levalbuterol HCl (Xopenex) 1.25 mg IH [id number] [facility] Last Admin: 09/06/17 19:30 Dose: 1.25 mg Methylprednisolone (Solu-Medrol) 40 mg IVP Q12 [facility] Last Admin: 09/06/17 21:49 Dose: 40 mg Montelukast Sodium (Singulair) 10 mg PO HS [facility] Last Admin: 09/06/17 21:48 Dose: 10 mg Oxycodone HCl (Oxycodone Immediate Release Tab) 15 mg PO Q4H PRN PRN Reason: Pain, severe (8-10) Last Admin: 09/05/17 17:33 Dose: 15 mg Pantoprazole Sodium (Protonix Inj) 40 mg IVP Q12 [facility] Last Admin: 09/06/17 21:48 Dose: 40 mg Roflumilast (Daliresp) 500 mcg PO DAILY [facility] Last Admin: 09/06/17 09:08 Dose: 500 mcg Sotalol HCl (Betapace) 120 mg PO BID [facility] Last Admin: 09/06/17 17:10 Dose: 120 mg Tizanidine HCl (Zanaflex) 4 mg PO TID [facility] Last Admin: 09/06/17 17:08 Dose: 4 mg Zolpidem Tartrate (Ambien) 10 mg PO HS [facility] PRN Reason: Protocol Stop: 09/07/17 23:59 Last Admin: 09/05/17 21:36 Dose: Not Given - Labs Labs: 09/06/17 05:30 09/06/17 05:30 PT 11.4 SECONDS (9.4-12.5) 09/04/17 09:30 INR 0.99 (0.93-1.08) 09/04/17 09:30 APTT 21.6 Seconds (25.1-36.5) L 09/04/17 09:30 Attending/Attestation - Attestation I have personally seen and examined this patient.: Yes I have fully participated in the care of the patient.: Yes I have reviewed all pertinent clinical information, including history, physical exam and plan: Yes Notes (Text): This is an addendum to GI progress report dictated by Kiki Vega APN.The patient was seen and examined earlier. Medical records, lab studies, imagings were reviewed. Last 24 hours events reviewed. Agreed with the above treatment plan as outlined in Kiki Vega APN's notes the with the addition of the following Patient did have bowel movements today. Still he complains of mild abdominal discomfort. I did review the ultrasound and also abdominal x-ray done earlier today. Patient was about to go for a CT of the abdomen and pelvis with a po and IV contrast at the time of evaluation Continue the antibiotics and close monitoring in ICU 09/06/17 23:37
[2017-09-06 13:32] LABS: ARTERIAL BLOOD GAS HCO3 37.1 mmol/L (21-28); ARTERIAL BLOOD GAS O2 SAT 93.7 % (95-98); ARTERIAL BLOOD GAS PCO2 51 mm/Hg (35-45); ARTERIAL BLOOD GAS PH 7.47 (7.35-7.45); ARTERIAL BLOOD GAS TCO2 38.7 mmol.L (22-28)
[2017-09-06] MEDS: Dextrose 5%/0.45% NS 1,000 ML IV SCH ×2 (13:54→17:15)
[2017-09-06 14:39] LABS: FOLATE 10.4 ng/mL
--- NOTE | 2017-09-06 15:16 | PN ---
DATE: 09/06/2017 SUBJECTIVE: The patient denies any chest pain, shortness of breath. complains of pain in the belly, complains of pain in the back. PHYSICAL EXAMINATION: GENERAL: Not in apparent distress, on CPAP. VITAL SIGNS: Temperature afebrile, heart rate , blood pressure . HEENT: PERRLA. Extraocular muscles intact. NECK: Supple. No carotid bruit or thyromegaly. CHEST: Clear to auscultation. HEART: S1 and S2, regular. ABDOMEN: Soft. EXTREMITIES: Clubbing and cyanosis negative. LABORATORY DATA: Blood workup as follows: WBC 12.3, hemoglobin 11. , hematocrit 37.5, and platelet count 335. Chemistry shows sodium 146, potassium 3.7, chloride 90, carbon dioxide 13, anion gap of 14, BUN 29, creatinine 0.7. Total protein 7.2, albumin 3.5, albumin-globulin ratio 1.1. IMPRESSION: Chronic obstructive pulmonary disease; history of vertebral fracture of lower thoracic lumbar vertebra; history of rectal bleed, anemia, status post packed red blood cell transfusion; paroxysmal atrial fibrillation, status post radiofrequency ablation, now the patient is in normal sinus; history of cardiac catheterization; nonobstructive coronary artery disease. Last MUGA scan showed preserved LV function. RECOMMENDATIONS: Aggressive medical treatment, avoid NSAID, Eliquis has been discontinued since admission because of the rectal bleed. H and H remain stable. The patient can be transferred to telemetry. We will supplement potassium. Continue sotalol. We will change Lasix to p.o. once the p.o. is started. Thank you Dr. Bowman for providing us the opportunity in taking care of the patient, Demetrio Cano. We will follow with you. Shaila Samuel MD
[2017-09-06] MEDS ORDERED: HYDROmorphone 1 mg/ml ISec IVP ONE (16:39)
[2017-09-06] MEDS ORDERED: HYDROmorphone 0.5 mg/0.5 ml ISec IVP STA ×2 (16:46→16:48)
--- NOTE | 2017-09-06 16:55 | PN ---
DATE: SUBJECTIVE: The patient is a 57-year-old. Last night events noted. Ultrasound shows questionable air. There is gas adjacent to pancreatic head base on these images. It was determined. It might be intraluminal or extraluminal. discussed with Dr. Bansal. We got surgical team involved. X-ray of the abdomen was done that showed no free air visualized underlying the hemidiaphragm, on the upright view. Dilated small bowel loops were identified. The patient is awaiting CT scan of the abdomen and pelvis prior to making decision. Currently, the patient's respiratory status is not very stable. He is on BiPAP and as soon as BiPAP is removed, he starts complaining that he is very short of breath. He does desaturate. The patient will be given oral contrast soon, so we can have CT of the abdomen and pelvis done. PHYSICAL EXAMINATION: GENERAL: He is sleepy, but arousable. VITAL SIGNS: He is afebrile, pulse 81, respirations , blood pressure 142/66. LUNGS: Bilateral fair airflow. Diffusely decreased breath sound. HEART: S1 and S2 audible. ABDOMEN: Soft. Epigastric discomfort. No rebound. No guarding. NEUROLOGIC: He is sleepy, but arousable. LABORATORY DATA: WBC is 12.3, hemoglobin 11, hematocrit 37, platelets 335. Chemistry: Sodium 146, potassium 3.7, chloride 98, CO2 of 39, BUN 29, creatinine 0.7, blood sugar of 131. ASSESSMENT: 1. Chronic obstructive pulmonary disease exacerbation. 2. Nonischemic cardiomyopathy. 3. Narcotic dependence. 4. History of gastritis. 5. Chronic anemia. 6. Status post rectal bleeding. 7. Urinary tract infection. 8. Chronic atrial fibrillation, status post ablation, currently in sinus rhythm. PLAN: We will continue on BiPAP support. He is n.p.o. We will give him IV fluid. He is currently on sotalol. He is on Brovana. He is on Cipro and is getting IV iron infusion. Once the patient's respiratory status is stable, we will get CT of the abdomen and pelvis. Ross Bowman MD [facility] # [id number]
[2017-09-06] MEDS ORDERED: Lubricant Eye Drops UD OU PRN (18:03)
--- NOTE | 2017-09-06 18:14 | CT ---
PROCEDURE: CT Abdomen and Pelvis with contrast HISTORY: abd pain and constipation COMPARISON: Comparison is made with 12/05/2015 TECHNIQUE: Contrast dose: 100 mL of Omnipaque 350. Axial and reformatted coronal and sagittal CT images of the abdomen and pelvis were obtained after IV and oral contrast administration. Radiation dose: Total exam DLP = 940.68 mGy-cm. This CT exam was performed using one or more of the following dose reduction techniques: Automated exposure control, adjustment of the mA and/or kV according to patient size, and/or use of iterative reconstruction technique. FINDINGS: LOWER THORAX: Bilateral airspace consolidations seen at the lung bases may represent atelectasis or bilateral aspiration pneumonia. No evidence of significant pleural effusion. The heart is normal in size. LIVER: Unremarkable. No gross lesion or ductal dilatation. GALLBLADDER AND BILE DUCTS: Mild diffuse gallbladder wall thickening noted. No definite CT evidence of acute cholecystitis. PANCREAS: Unremarkable. No gross lesion or ductal dilatation. SPLEEN: Unremarkable. ADRENALS: Unremarkable. No mass. KIDNEYS AND URETERS: Unremarkable. No hydronephrosis. No solid mass. VASCULATURE: Unremarkable. No aortic aneurysm. BOWEL: There is moderately dilated small bowel loops at the mid and lower abdomen. The distal small bowel loops demonstrate diffuse wall thickening. No evidence of high-grade bowel obstruction. The oral contrast seen in the large bowel. The stomach is mildly distended. APPENDIX: There is no evidence of appendicitis. PERITONEUM: Unremarkable. No free fluid. No free air. LYMPH NODES: Unremarkable. No enlarged lymph nodes. BLADDER: There is a Live catheter in the bladder. REPRODUCTIVE: Unremarkable. BONES: Partially imaged sclerotic changes and compression deformity of T9 and T10 vertebral bodies is noted. There is also mild compression deformity at the superior endplate of L5. Diffuse osteopenia is noted. OTHER FINDINGS: None. IMPRESSION: No CT evidence of free fluid or free air. Moderately dilated small bowel loops in the mid and lower abdomen. Moderate distal small bowel loops wall thickening. The differential diagnosis includes infectious inflammatory or neoplasm process. No evidence of high-grade bowel obstruction. Oral contrast reached the large bowel. Small opacities at the lung bases may represent atelectasis or aspiration pneumonia. Mild gallbladder wall thickening without evidence of acute cholecystitis. Partially image sclerotic changes and mild compression deformity of T10 and T9 vertebral bodies. Mild compression deformity of L5.
--- NOTE | 2017-09-06 18:34 | PN ---
DATE: 09/06/2017 PULMONARY CRITICAL CARE PROGRESS NOTE REFERRING PHYSICIAN: Ross Bowman MD SUBJECTIVE: He is lying in the bed, head at 45 degrees. Night was unremarkable, on noninvasive ventilation. Still short of breath and no significant cough, no sputum production. No vomiting. No hematuria. No diarrhea reported. OBJECTIVE: VITAL SIGNS: Temperature 98, heart rate 81, respiratory rate is 20, blood pressure 142/56, and pulse ox is 94% on noninvasive ventilation. HEENT: Moist mucous membranes. Crowded airway. NECK: Supple. No JVD. Short thick neck. LUNGS: Bilateral crackles and rhonchi with wheezing. HEART: S1 and S2. ABDOMEN: Soft and nontender. No organomegaly. EXTREMITIES: There is no edema. NEUROLOGIC: Awake and alert. Follows simple commands. MEDICATIONS: He is on Ambien 10 mg at bedtime, sotalol 120 mg twice a day, Brovana inhaled twice a day, Cipro 500 mg twice a day, Daliresp 500 mcg daily, Dilaudid 1 mg q. 4 hours p.r.n., IV fluid Dextrose 50 mL/hour, ferrous sulfate 324 mg three times a day and also getting IV iron, Lasix 40 mg daily, OxyContin immediate release 15 mg q.4 hours p.r.n., Protonix 40 mg twice a day, Singulair 10 mg daily, Solu-Medrol 40 mg q.12 hours, Tylenol p.r.n., Xanax 0.25 mg three times a day p.r.n., Xopenex inhaled q. 6 hours, and Zanaflex 4 mg three times a day. LABORATORY DATA: Shows hemoglobin 11.1, hematocrit 37.5, WBC 12.3, platelets 335, reticulocyte count is 420. Sodium 146, potassium 2.7, chloride , bicarbonate 39. BUN 29, creatinine 0.7. Glucose is 131. Calcium is 9.7. Total bilirubin is 0.5, AST 44, ALT 30, alkaline phosphatase is 111. Albumin is 3.7. Procalcitonin is less than 0.05. Chest x-ray done today shows basilar atelectasis and nodular opacity with the right lower lung zone measuring 1.4 cm, probably nipple shadow, but need to assure it. IMPRESSION AND PLAN: Anemia, probably secondary to gastrointestinal bleed, chronic obstructive lung disease, respiratory failure, noninvasive ventilation, has a T9-T10 compression fracture, coronary artery disease, history of atrial fibrillation. Case discussed with the vocational education professional, Dr. Cameron in detail. Clinically, I feel we need to increase Solu-medrol 40 q. 6 hours to optimize his pulmonary care, so we can get it after noninvasive ventilation, which is a continuous noninvasive ventilation. Seems like anemia is improving. Of course as I said, his optimal hemoglobin probably is 15 for compensating of his severe lung disease. Procalcitonin had been negative. May have to get a proBNP and also need to look at echocardiogram that showed there is no cardiac dysfunction contributing to his respiratory failure. For now, try to increase Solu-medrol, inhaled bronchodilator, keep head at 45 degrees. Try high-flow nasal cannula. Follow up ABG, chest x-ray, CBC, CMP in the morning. Thank you and we will follow with you. Shaila Mercado MD
--- NOTE | 2017-09-06 22:30 | PN ---
DATE: 09/06/2017 SUBJECTIVE: The patient is seen and examined at bedside. He was on BiPAP with FiO2 of 50% /, his O2 sat was 95%-97%. He was going down to high-flow oxygen 50%/60 liters per minute with oxygen saturation varying between 90% and 93%. Of note, patient uses oxygen at home 4 liters per minute. The patient tolerated this transition well. He is not short of breath. He is comfortable. He is not in respiratory or otherwise distress. He talks full sentences. He tolerates oral nutrition and hydration. He was able to drink oral contrast for CT scan of the abdomen and pelvis. OBJECTIVE: VITAL SIGNS: Temperature 98.1, blood pressure 142/66, oxygen saturation 90-93 on 50% FiO2 on high-flow oxygen, respiratory rate 18, heart rate 76. HEENT: Head and neck atraumatic. LUNGS: Decreased breath sounds bilaterally. HEART: Regular rate and rhythm. S1, S2 normal. ABDOMEN: Soft, nondistended, mildly tender in the left upper quadrant. MUSCULOSKELETAL: Trace bilateral pedal and ankle edema. NEUROLOGIC: The patient moves all extremities spontaneously. SKIN: Moist. PSYCHIATRIC: The patient is alert and oriented x3. LABORATORY DATA: WBC 12.3, hemoglobin 11.1, platelet count 335. Sodium 146, potassium 3.7, chloride 98, carbon dioxide 39, BUN 29, creatinine 0.7, glucose 131, calcium 9.7. ABG on BiPAP 7.47/51/62 on 50% FiO2, O2 sat 93%, lactic acid 1.5. MEDICATIONS: Tylenol p.r.n., Xanax p.r.n., Brovana, Cipro, D5 half-normal saline at 50 mL/hour, Feosol, Lasix 40 mg IV daily, Dilaudid p.r.n., Xopenex, Solu-Medrol 40 mg IV q. 12, Singulair, oxycodone p.r.n., Protonix, Daliresp, sotalol, Zanaflex, zolpidem at bedtime. ASSESSMENT AND PLAN: This is a 57-year-old gentleman, who presented with chronic obstructive pulmonary disease exacerbation in the setting of severe chronic obstructive pulmonary disease (patient is on Daliresp and home oxygen). The patient was treated with steroids, antibiotics and bronchodilators. He has temporarily required BiPAP for ventilatory support. He substantially improved. BiPAP was weaned off. He is continued to be on steroid taper and bronchodilators. Abdominal ultrasound revealed a questionable air pocket whether extra or intraluminal. CAT scan of the abdomen, pelvis was ordered to follow up on that. The patient is hemodynamically stable. The patient respiratory khan is at his baseline consistent with chronic ventilatory failure. He however was able to tolerate transition from BiPAP to high-flow O2. We will repeat ABG while on high-flow. If CAT scan of the abdomen and pelvis does not reveal any free air to suggest a perforation, the patient will be considered to be transferred to the telemetry or Med-Surg floor. We will continue to maintain euvolemia,euglycemia, normothermia and oxygen saturation more than 90%. We will continue with deep venous thrombosis, gastrointestinal prophylaxis. Addendum: CTA/P-->enteritis? but no SBO and no perforation: ok to downgrade to tele: discussed with PMD ccm time 40 min Luisito Cameron MD [facility]
[2017-09-07] MEDS: Levalbuterol 1.25 MG/3 ML Inhal Soln UD IH SCH ×4 (01:56→20:22)
[2017-09-07] MEDS: HYDROmorphone 0.5 mg/0.5 ml ISec IVP PRN ×4 (02:00→12:55)
[2017-09-07 06:03] LABS: HEMOGLOBIN 10.6 g/dL (14.0-18.0); MEAN CELL VOLUME 85.6 fl (80.0-105.0); MEAN CORPUSCULAR HEMOGLOBIN 25.4 pg (25.0-35.0); MEAN CORPUSCULAR HGB CONC 29.7 g/dl (31.0-37.0); MEAN PLATELET VOLUME 9.4 fl (7.0-11.0); RBC 4.17 10^6/uL (3.5-6.1); RED CELL DISTRIBUTION WIDTH 17.9 % (11.5-14.5); WHITE BLOOD COUNT 7.3 10^3/ul (4.5-11.0)
[2017-09-07 07:11] LABS: ALB/GLOB RATIO 1.1 (1.1-1.8); ALBUMIN 3.4 g/dL (3.0-4.8); ALT/SGPT 60 U/L (7-56); AST/SGOT 42 U/L (17-59); BLOOD UREA NITROGEN 24 mg/dL (7-21); CALCIUM 9.5 mg/dL (8.4-10.5); GFR AFRICAN-AMERICAN > 60; GFR NON-AFRICAN AMERICAN > 60
[2017-09-07] MEDS: Arformoterol 15 mcg/2 ml Inh Sol IH SCH ×2 (07:17→20:22)
--- NOTE | 2017-09-07 08:25 | CP.PCM.PN ---
Subjective - Date & Time of Evaluation Date of Evaluation: 09/07/17 Time of Evaluation: 08:22 - Subjective Subjective: GENERAL SURGERY CONSULT PROGRESS NOTE FOR DR. LOCKETT Patient has been seen and examined at bedside. No overnight events reported. Patient reports that his dysnea has improved. He denies any fever, chills, abdominal pain, nausea, or vomiting. Objective - Vital Signs/Intake and Output Vital Signs (last 24 hours): Temp Pulse Resp BP Pulse Ox 98.3 F 86 15 124/69 95 09/07/17 00:01 09/07/17 07:28 09/07/17 06:00 09/07/17 06:00 09/07/17 06:00 Intake and Output: 09/07/17 09/07/17 06:59 18:59 Intake Total 100 Output Total 800 Balance -700 - Medications Medications: Current Medications Acetaminophen (Tylenol 325mg Tab) 650 mg PO Q6H PRN PRN Reason: Pain, moderate (4-7) Last Admin: 09/02/17 22:10 Dose: 650 mg Alprazolam (Xanax) 0.5 mg PO TID PRN; Protocol PRN Reason: Anxiety Last Admin: 09/07/17 08:14 Dose: 0.5 mg Arformoterol Tartrate (Brovana) 15 mcg IH [id number] [facility] Last Admin: 09/07/17 07:17 Dose: 15 mcg Artificial Tears (Refresh Opth Soln) 0.3 ml OU Q8H PRN PRN Reason: Dry eyes Ciprofloxacin (Cipro) 500 mg PO Q12 ERNESTINA PRN Reason: Protocol Stop: 09/09/17 13:01 Last Admin: 09/06/17 21:46 Dose: 500 mg Ferrous Sulfate (Feosol) 324 mg PO TID [facility] Last Admin: 09/06/17 17:08 Dose: 324 mg Furosemide (Lasix) 40 mg IVP DAILY [facility] Last Admin: 09/06/17 09:08 Dose: 40 mg Hydromorphone HCl (Dilaudid) 1 mg IVP Q4 PRN PRN Reason: Pain, moderate (4-7) Last Admin: 09/07/17 05:33 Dose: 1 mg Iron Sucrose 100 mg/ Sodium (Chloride) 105 mls @ 210 mls/hr IV DAILY [facility] Stop: 09/10/17 15:16 Last Admin: 09/06/17 09:14 Dose: 210 mls/hr Levalbuterol HCl (Xopenex) 1.25 mg IH [id number] [facility] Last Admin: 09/07/17 07:17 Dose: 1.25 mg Methylprednisolone (Solu-Medrol) 40 mg IVP Q12 [facility] Last Admin: 09/06/17 21:49 Dose: 40 mg Montelukast Sodium (Singulair) 10 mg PO [facility] Last Admin: 09/06/17 21:48 Dose: 10 mg Oxycodone HCl (Oxycodone Immediate Release Tab) 15 mg PO Q4H PRN PRN Reason: Pain, severe (8-10) Last Admin: 09/05/17 17:33 Dose: 15 mg Pantoprazole Sodium (Protonix Inj) 40 mg IVP Q12 [facility] Last Admin: 09/06/17 21:48 Dose: 40 mg Roflumilast (Daliresp) 500 mcg PO DAILY [facility] Last Admin: 09/06/17 09:08 Dose: 500 mcg Sotalol HCl (Betapace) 120 mg PO BID [facility] Last Admin: 09/06/17 17:10 Dose: 120 mg Tizanidine HCl (Zanaflex) 4 mg PO TID [facility] Last Admin: 09/06/17 17:08 Dose: 4 mg Zolpidem Tartrate (Ambien) 10 mg PO [facility] PRN Reason: Protocol Stop: 09/07/17 23:59 Last Admin: 09/05/17 21:36 Dose: Not Given - Labs Labs: 09/07/17 05:30 09/07/17 05:30 PT 11.4 SECONDS (9.4-12.5) 09/04/17 09:30 INR 0.99 (0.93-1.08) 09/04/17 09:30 APTT 21.6 Seconds (25.1-36.5) L 09/04/17 09:30 - Constitutional Appears: Non-toxic, No Acute Distress - Head Exam Head Exam: ATRAUMATIC, NORMAL INSPECTION, NORMOCEPHALIC - Eye Exam Eye Exam: EOMI, Normal appearance - Respiratory Exam Respiratory Exam: Accessory Muscle Use. absent: Respiratory Distress Additional comments: On BIPAP - Cardiovascular Exam Cardiovascular Exam: +S1, +S2 - GI/Abdominal Exam GI & Abdominal Exam: Soft. absent: Distended, Firm, Guarding, Rigid, Tenderness - Neurological Exam Neurological Exam: Alert, Awake, Oriented x3 - Skin Skin Exam: Normal Color, Warm Assessment and Plan - Assessment and Plan (Free Text) Assessment: 57 y/o male w/ abdominal pain, could be secondary to MSK due to increase work of breathing Abd/Pelvis CT - Noted Plan: -advance diet as tolerated -pain control -no acute surgical intervention at this time. Please feel free to contact us with any questions nor concerns. -Will discuss with Dr. Janeth Rogers, PGY1
[2017-09-07 09:22] LABS: ARTERIAL BLOOD GAS HCO3 37.4 mmol/L (21-28); ARTERIAL BLOOD GAS O2 CAPACITY 15.2 mL/dl (16-24); ARTERIAL BLOOD GAS O2 CONTENT 14.1 ML/dl (15-23); ARTERIAL BLOOD GAS PCO2 55 mm/Hg (35-45); ARTERIAL BLOOD GAS PH 7.44 (7.35-7.45); ARTERIAL BLOOD GAS TCO2 39.1 mmol.L (22-28)
[2017-09-07] MEDS: MethylPREDNISolone 40 mg Vial IVP SCH ×2 (09:41→21:26)
--- NOTE | 2017-09-07 16:40 | CP.PCM.PN ---
<Kiki Vega - Last Filed: 09/07/17 16:41> Subjective - Date & Time of Evaluation Date of Evaluation: 09/07/17 Time of Evaluation: 09:25 - Subjective Subjective: Seen and examined at the bedside earlier today, chart review. Patient was able to go on CT scan of abdomen and pelvis on BiPAP, this reported some lung obesity , gallbladder wall thickening with no signs of acute cholecystitis. The small bowel loops appear dilated no evidence of high-grade SBO. The patient denies abdominal discomfort. No reports of nausea, vomiting, fever or chills. Patient appears more comfortable today. Patient requesting oatmeal. Started on clear liquid this morning. Objective - Vital Signs/Intake and Output Vital Signs (last 24 hours): Temp Pulse Resp BP Pulse Ox 98.3 F 122 H 18 122/83 83 L 09/07/17 00:01 09/07/17 10:40 09/07/17 16:03 09/07/17 10:40 09/07/17 10:40 Intake and Output: 09/07/17 09/07/17 06:59 18:59 Intake Total 100 Output Total 800 Balance -700 - Medications Medications: Current Medications Acetaminophen (Tylenol 325mg Tab) 650 mg PO Q6H PRN PRN Reason: Pain, moderate (4-7) Last Admin: 09/02/17 22:10 Dose: 650 mg Alprazolam (Xanax) 0.5 mg PO TID PRN; Protocol PRN Reason: Anxiety Last Admin: 09/07/17 08:14 Dose: 0.5 mg Arformoterol Tartrate (Brovana) 15 mcg IH [id number] [facility] Last Admin: 09/07/17 07:17 Dose: 15 mcg Artificial Tears (Refresh Opth Soln) 0.3 ml OU Q8H PRN PRN Reason: Dry eyes Ferrous Sulfate (Feosol) 324 mg PO TID [facility] Last Admin: 09/07/17 13:00 Dose: 324 mg Furosemide (Lasix) 40 mg IVP DAILY [facility] Last Admin: 09/07/17 09:40 Dose: 40 mg Iron Sucrose 100 mg/ Sodium (Chloride) 105 mls @ 210 mls/hr IV DAILY [facility] Stop: 09/10/17 15:16 Last Admin: 09/07/17 10:34 Dose: 210 mls/hr Levalbuterol HCl (Xopenex) 1.25 mg IH [id number] [facility] Last Admin: 09/07/17 13:14 Dose: 1.25 mg Methylprednisolone (Solu-Medrol) 40 mg IVP Q12 [facility] Last Admin: 09/07/17 09:41 Dose: 40 mg Montelukast Sodium (Singulair) 10 mg PO HS [facility] Last Admin: 09/06/17 21:48 Dose: 10 mg Oxycodone HCl (Oxycodone Immediate Release Tab) 15 mg PO Q4H PRN PRN Reason: Pain, severe (8-10) Last Admin: 09/05/17 17:33 Dose: 15 mg Pantoprazole Sodium (Protonix Inj) 40 mg IVP Q12 [facility] Last Admin: 09/07/17 09:41 Dose: 40 mg Roflumilast (Daliresp) 500 mcg PO DAILY [facility] Last Admin: 09/07/17 09:41 Dose: 500 mcg Sotalol HCl (Betapace) 120 mg PO BID [facility] Last Admin: 09/07/17 09:41 Dose: 120 mg Tizanidine HCl (Zanaflex) 4 mg PO TID [facility] Last Admin: 09/07/17 13:00 Dose: 4 mg Zolpidem Tartrate (Ambien) 10 mg PO [facility] PRN Reason: Protocol Stop: 09/07/17 23:59 Last Admin: 09/05/17 21:36 Dose: Not Given - Labs Labs: 09/07/17 05:30 09/07/17 05:30 PT 11.4 SECONDS (9.4-12.5) 09/04/17 09:30 INR 0.99 (0.93-1.08) 09/04/17 09:30 APTT 21.6 Seconds (25.1-36.5) L 09/04/17 09:30 - Constitutional Appears: No Acute Distress - Eye Exam Eye Exam: Normal appearance - ENT Exam ENT Exam: Mucous Membranes Moist - Neck Exam Neck Exam: Normal Inspection - Respiratory Exam Respiratory Exam: Accessory Muscle Use (on BiPAP), Decreased Breath Sounds, Rhonchi, Wheezes. absent: Respiratory Distress - Cardiovascular Exam Cardiovascular Exam: +S1 - GI/Abdominal Exam GI & Abdominal Exam: Soft, Normal Bowel Sounds. absent: Guarding, Tenderness, Rebound - Neurological Exam Neurological Exam: Alert, Awake, Oriented x3 - Skin Skin Exam: Dry, Warm Assessment and Plan - Assessment and Plan (Free Text) Assessment: Assessment: Resolved RUQ abdominal pain, may be r/t hepatic congestion,s/p US, "ovid gas adjacent to pancreas, abd xray reports: Dilated small bowel loops, ? obstruction ,status post CT scan no evidence of high-grade dysplasia but positive small bowel dilated loops Non-STEMI Acute exacerbation of COPD GI bleed, rectal bleed Anemia status post 2 units of packed RBCs total Urinary tract infection History of chronic atrial fibrillation, status post cardiac ablation Plan: Monitor H&H , GI bleed and transfuse as necessary Continue Protonix twice a day on clear liquids, advance diet as tolerated, will try full liquid diet for lunch On oral Cipro On Solu-Medrol On iron supplement SCD for dvt prophlaxsis surgery on board Consider endoscopy when patient is cardiopulmonary stable. Seen and discussed with Dr. Bansal. <Felicia Bansal V - Last Filed: 09/07/17 20:13> Objective - Vital Signs/Intake and Output Vital Signs (last 24 hours): Temp Pulse Resp BP Pulse Ox 98.5 F 78 20 103/81 91 L 09/07/17 16:00 09/07/17 18:00 09/07/17 18:00 09/07/17 18:00 09/07/17 18:00 Intake and Output: 09/07/17 09/08/17 18:59 06:59 Intake Total 940 Output Total 1150 Balance -210 - Medications Medications: Current Medications Acetaminophen (Tylenol 325mg Tab) 650 mg PO Q6H PRN PRN Reason: Pain, moderate (4-7) Last Admin: 09/02/17 22:10 Dose: 650 mg Alprazolam (Xanax) 0.5 mg PO TID PRN; Protocol PRN Reason: Anxiety Last Admin: 09/07/17 17:24 Dose: 0.5 mg Arformoterol Tartrate (Brovana) 15 mcg IH [id number] [facility] Last Admin: 09/07/17 07:17 Dose: 15 mcg Artificial Tears (Refresh Opth Soln) 0.3 ml OU Q8H PRN PRN Reason: Dry eyes Ferrous Sulfate (Feosol) 324 mg PO TID [facility] Last Admin: 09/07/17 17:24 Dose: 324 mg Furosemide (Lasix) 40 mg IVP DAILY [facility] Last Admin: 09/07/17 09:40 Dose: 40 mg Iron Sucrose 100 mg/ Sodium (Chloride) 105 mls @ 210 mls/hr IV DAILY [facility] Stop: 09/10/17 15:16 Last Admin: 09/07/17 10:34 Dose: 210 mls/hr Levalbuterol HCl (Xopenex) 1.25 mg IH [id number] [facility] Last Admin: 09/07/17 13:14 Dose: 1.25 mg Methylprednisolone (Solu-Medrol) 40 mg IVP Q12 [facility] Last Admin: 09/07/17 09:41 Dose: 40 mg Montelukast Sodium (Singulair) 10 mg PO [facility] Last Admin: 09/06/17 21:48 Dose: 10 mg Oxycodone HCl (Oxycodone Immediate Release Tab) 15 mg PO Q4H PRN PRN Reason: Pain, severe (8-10) Last Admin: 09/07/17 17:24 Dose: 15 mg Pantoprazole Sodium (Protonix Inj) 40 mg IVP Q12 [facility] Last Admin: 09/07/17 09:41 Dose: 40 mg Roflumilast (Daliresp) 500 mcg PO DAILY [facility] Last Admin: 09/07/17 09:41 Dose: 500 mcg Sotalol HCl (Betapace) 120 mg PO BID [facility] Last Admin: 09/07/17 17:25 Dose: 120 mg Tizanidine HCl (Zanaflex) 4 mg PO TID [facility] Last Admin: 09/07/17 17:24 Dose: 4 mg Zolpidem Tartrate (Ambien) 10 mg PO [facility] PRN Reason: Protocol Stop: 09/07/17 23:59 Last Admin: 09/05/17 21:36 Dose: Not Given - Labs Labs: 09/07/17 05:30 09/07/17 05:30 PT 11.4 SECONDS (9.4-12.5) 09/04/17 09:30 INR 0.99 (0.93-1.08) 09/04/17 09:30 APTT 21.6 Seconds (25.1-36.5) L 09/04/17 09:30 Attending/Attestation - Attestation I have personally seen and examined this patient.: Yes I have fully participated in the care of the patient.: Yes I have reviewed all pertinent clinical information, including history, physical exam and plan: Yes Notes (Text): This is an addendum to GI progress report dictated by Kiki Vega APN.The patient was seen and examined earlier. Medical records, lab studies, imagings were reviewed. Last 24 hours events reviewed. Agreed with the above treatment plan as outlined in Kiki Vega APN's notes the with the addition of the following The CT scan was reviewed On examination abdomen soft there was some mild tenderness on deep palpation right upper quadrant area Continue high-dose PPI Advance the diet to full liquid diet and then to soft diet Close follow-up hemoglobin and hematocrit Endoscopy evaluation after optimization off respiratory status 09/07/17 20:12
[2017-09-07] MEDS: oxyCODONE 15 mg Immediate Release Tab PO PRN ×2 (17:24→21:27)
--- NOTE | 2017-09-07 19:31 | PN ---
DATE: SUBJECTIVE: Patient is 57 years old. Seen and examined, still short of breath. No abdominal pain, tolerating liquid diet. Seems a little distended. Asking for more and more pain medication. PHYSICAL EXAMINATION: VITAL SIGNS: Patient is afebrile, pulse 120, blood pressure 122/83, respirations 21. LUNGS: Bilateral diffusely decreased breath sounds. HEART: S1 and S2 audible. ABDOMEN: Soft. Slightly distended. EXTREMITIES: Bilateral leg no edema. NEUROLOGIC: He is awake, alert, oriented, very anxious. LABORATORY DATA: WBC 7.3, hemoglobin 10.6, hematocrit 35.7, platelets of 254. Chemistry: Sodium 140, potassium 3.6, chloride 97, CO2 of 34, BUN 24, creatinine 0.5, blood sugar of 155. ASSESSMENT: 1. Respiratory failure. 2. Pulmonary hypertension. 3. Advanced chronic obstructive pulmonary disease. 4. Narcotic dependence. 5. Cardiomyopathy. 6. Chronic atrial fibrillation status post ablation. 7. Status post gastrointestinal bleed. 8. Chronic anemia. 9. Compression fracture of T9 and T10. PLAN: We will switch his analgesic to p.o. and I will request Dr. eLe to evaluate patient for his anxiety and increasing need of narcotics as his pain is out of proportion to his disease and to give us input how to handle it. Ross Bowman MD
--- NOTE | 2017-09-07 19:36 | PN ---
DATE: REASON FOR CONSULTATION AND FOLLOWUP: Cardiac evaluation, admitted with rectal bleed, history of AFib, status post radiofrequency ablation. SUBJECTIVE: Patient denies any chest pain, shortness of breath, or any palpitation. OBJECTIVE: GENERAL: Not in apparent distress. VITAL SIGNS: Temperature afebrile, heart rate 87, blood pressure 133/82. HEENT: PERRLA intact. NECK: Supple. No carotid bruit or thyromegaly. CHEST: Clear to auscultation. HEART: S1 and S2, regular. ABDOMEN: Soft. EXTREMITIES: Clubbing and cyanosis negative. LABORATORY DATA: WBC , hematocrit 35.7, platelet count 254. Chemistry shows sodium 140, potassium 3.6, chloride 97, carbon dioxide of 34, anion gap of 13. BUN 25, creatinine 0.5. Magnesium 2.5. IMPRESSION: Status post rectal bleed, history of cardiomyopathy, chronic obstructive pulmonary disease, nonischemic cardiomyopathy, narcotic dependence, history of gastritis, rectal bleed, chronic anemia, urinary tract infection, atrial fibrillation, status post radiofrequency ablation, nonobstructive coronary artery disease, off Eliquis since patient came in here, was on Eliquis prior to coming because of atrial fibrillation. RECOMMENDATION: Continue off Eliquis. Resume back sotalol. Monitor H and H, stable. CVS status is stable. No further invasive cardiac workup is planned. Okay to discharge when the H and H remain stable. Shaila Samuel MD
[2017-09-08] MEDS: oxyCODONE 15 mg Immediate Release Tab PO PRN ×2 (02:20→06:18)
[2017-09-08] MEDS: Levalbuterol 1.25 MG/3 ML Inhal Soln UD IH SCH ×4 (02:45→20:10)
--- NOTE | 2017-09-08 02:52 | PN ---
DATE: 09/07/2017 REFERRING PHYSICIAN: Ross Bowman MD SUBJECTIVE: Patient is lying in the bed, head at 45 degrees in the intensive care unit on high-flow nasal cannula oxygen. Was able to take him off BiPAP this morning, still short of breath with some cough. No nausea. No vomiting. No diarrhea. No leg pain or leg swelling. OBJECTIVE: GENERAL: In no acute distress. VITAL SIGNS: Temperature is 98, heart rate is 98, respiratory rate is 20, blood pressure 103/81, pulse ox 91% on high-flow nasal cannula. HEENT: Crowded airway. NECK: Supple. No JVD. LUNGS: Has scattered crackles and wheezing. HEART: S1 and S2. ABDOMEN: Soft. Nontender. No organomegaly. EXTREMITIES: There is no edema. NEUROLOGIC: Awake and alert. Follows simple commands. MEDICATIONS: He is on Ambien 10 mg at bedtime p.r.n., sotalol 120 mg twice a day, Brovana inhaled twice a day, Daliresp 500 mcg daily, ferrous sulfate 324 mg three times a day, IV iron, Lasix 40 mg daily, oxycodone immediate release 15 mg q. 4 hours p.r.n, Protonix 40 mg twice a day, Singulair 10 mg daily, Solu-Medrol 40 mg q. 12 hours, Tylenol p.r.n., Xanax 0.5 mg three times a day p.r.n., Xopenex inhaled q. 6 hours, and Zanaflex 4 mg three times a day. LABORATORY DATA: Shows hemoglobin 10.6, hematocrit 35.7, WBC 7.3, platelets 254, reticulocyte count is 4.2. ABG this morning showed pH 7.44, pCO2 of 55, O2 of 64, this is on 60% oxygen. Sodium 140, potassium 3.6, chloride 97, bicarbonate 34, BUN 24, creatinine 0.5, glucose 155, calcium is 9.5, magnesium 2.5, AST 42, ALT 60, albumin 3.4. Repeat CT of the abdomen and pelvis shows there is no CT evidence of free fluid or free air, dilated small bowel loops in the mid and lower abdomen. Moderate distal small bowel loop with wall thickening. Small basilar infiltrate in the lung. Mild gallbladder thickening. IMPRESSION AND PLAN: Respiratory failure requiring high-flow nasal canula oxygen, able to get him off from noninvasive ventilation, chronic obstructive lung disease, anemia, T9 to T10 compression fracture, coronary artery disease, history of atrial fibrillation. CT evidence also of small bowel thickening. We will continue intravenous and inhaled bronchodilator, keep head at 45 degrees, continue gastric prophylaxis, sequential compression devices to lower extremity. Continue to optimize hemoglobin. Follow up arterial blood gas, chest x-ray, complete blood count, and comprehensive metabolic panel in the morning. Critical care time is more than 35 minutes. We will follow up with you. Shaila Mercado MD
[2017-09-08 03:21] LABS: ARTERIAL BLOOD GAS HEMOGLOBIN 11.2 g/dL (11.7-17.4); ARTERIAL BLOOD GAS O2 CAPACITY 15.4 mL/dl (16-24); ARTERIAL BLOOD GAS O2 SAT 90.7 % (95-98); ARTERIAL BLOOD GAS PH 7.35 (7.35-7.45); ARTERIAL BLOOD GAS TCO2 43.2 mmol.L (22-28)
[2017-09-08 03:22] LABS: ARTERIAL BLOOD GAS PCO2 74 mm/Hg (35-45)
[2017-09-08 03:23] LABS: ARTERIAL BLOOD GAS HCO3 40.9 mmol/L (21-28)
--- NOTE | 2017-09-08 04:44 | CON ---
DATE: IDENTIFYING INFORMATION: The patient is a 57-year-old, two times , retired white male, with a number of admissions for COPD. HISTORY OF PRESENT ILLNESS: On this occasion, the patient had been having intermittent rectal bleeding for almost a week. He had been maintained on Eliquis, but exhibited more blood than usual; thus was advised to come to the emergency room. PAST MEDICAL HISTORY: Positive for congestive heart failure, emphysema, chronic AFib - he had an electrical procedure at [facility] (ablation) at the end of last year, intractable back pain secondary to T4, T10 compression fracture that had been diagnosed last week (which the patient is attributing to his chronic use of steroids to help control his COPD), chronic anemia. He has been on chronic intravenous infusion. MEDICATIONS: The patient is maintained for palliation of his pain relief on oxycodone 50 mg q.4-6 hours without relief. He had recently seen Dr. Mota, pain management, for the same pain management. He also takes Xanax 0.5 mg twice daily. His other medications include Zanaflex 4 mg t.i.d., ferrous sulfate, Protonix, aspirin 81 mg, sotalol 120 mg b.i.d., Lasix 40 mg daily, Eliquis mg b.i.d., Daliresp 500 mcg daily, 10 mEq of potassium, Linzess 72 mcg daily, prednisone 20 mg twice daily. SOCIAL HISTORY: The patient used to be a heavy smoker. He had been on methadone, but recently tapered this down (the patient omitted telling me about this). He does indicate that in his teens and early 20s, he used both marijuana and cocaine, with cocaine being used into his 30s "recreationally." He has never been in treatment for substance abuse, has never seen a psychiatrist, nor has he seen the need for this. He is a [employer] [place] and a high school graduate. He worked for many years as a [employer] worker, but retired/went on disability about 8 years ago because of his pulmonary problems. FAMILY HISTORY: He for the first time to his high school [employer] at age 17 and remained for 8 years. He has a son, now in his 30s, from that union. They broke up mutually. He now has been for approximately 8 years to his second and indicates he gets along with her. She had never been before. The patient is the middle of his parents' three children with he denying any psychiatric familial or substance abuse history. He denied a history of alcohol use, he denied any legal history. VITAL SIGNS: The patient is presently running a low blood pressure with systolic reportedly 80+ earlier; now it is 107/70. DIAGNOSTICS: Metabolically, his hemoglobin is low at 10.6, hematocrit 35.7. It is higher than his admission, but lower than yesterday. Biochemical profile today shows elevated BUN of 24 (but lower than yesterday of 29), creatinine elevated at 0.5 (but lower than the 0.7 of yesterday), with an elevated glucose of 155, elevated magnesium of 2.5, and slightly elevated ALT of 60. He is negative for flu. Urine shows small amount of leukocyte esterase, positive nitrate. No urine drug screen has been performed. PSYCHIATRIC: The patient is presently alert, quiet spoken, wearing a face mask for oxygen, appears older than his stated age, denies feelings of depression, denies irregular use of his prescribed medications, indicates a desire to come off of his pain medication if he can. IMPRESSION AND PLAN: The patient does not appear to be on enormous amount of opioid analgesic relief for chronic back pain. Nor is he taking an excessive amount of Xanax such that we should necessarily worried about an interaction between both opiates and benzodiazepines, as both appear to be needed for his condition. If the patient wants to be tapered from his oxycodone, we can consider either methadone or buprenorphine (Suboxone). Will discuss further with you. Thank you as always for this consultation. Gamal Lee MD/ PhD
[2017-09-08 06:20] LABS: HEMOGLOBIN 12.1 g/dL (14.0-18.0); MEAN CELL VOLUME 86.7 fl (80.0-105.0); MEAN CORPUSCULAR HEMOGLOBIN 25.6 pg (25.0-35.0); MEAN CORPUSCULAR HGB CONC 29.5 g/dl (31.0-37.0); MEAN PLATELET VOLUME 9.4 fl (7.0-11.0); RBC 4.73 10^6/uL (3.5-6.1); RED CELL DISTRIBUTION WIDTH 17.8 % (11.5-14.5); WHITE BLOOD COUNT 17.3 10^3/ul (4.5-11.0)
[2017-09-08 07:13] LABS: ALB/GLOB RATIO 1.1 (1.1-1.8); ALBUMIN 3.6 g/dL (3.0-4.8); ALT/SGPT 57 U/L (7-56); AST/SGOT 33 U/L (17-59); BLOOD UREA NITROGEN 24 mg/dL (7-21); CALCIUM 9.7 mg/dL (8.4-10.5); GFR AFRICAN-AMERICAN > 60; GFR NON-AFRICAN AMERICAN > 60
[2017-09-08] MEDS: Arformoterol 15 mcg/2 ml Inh Sol IH SCH (07:15)
[2017-09-08 08:22] LABS: ARTERIAL BLOOD GAS O2 SAT 84.9 % (95-98); ARTERIAL BLOOD GAS PCO2 59 mm/Hg (35-45); ARTERIAL BLOOD GAS PH 7.45 (7.35-7.45); ARTERIAL BLOOD GAS TCO2 42.8 mmol.L (22-28)
[2017-09-08] MEDS ORDERED: Propofol 10 mg/ml 1,000 MG/100 ML VIAL ONE (09:03)
[2017-09-08] MEDS ORDERED: Propofol 10 mg/ml 500 MG/50 ML VIAL IV PRN (09:09)
[2017-09-08] MEDS: Propofol 10 mg/ml 1,000 MG/100 ML VIAL IV PRN ×2 (09:55→15:40)
--- NOTE | 2017-09-08 10:04 | CP.PCM.PN ---
<Kiki Vega - Last Filed: 09/08/17 10:04> Subjective - Date & Time of Evaluation Date of Evaluation: 09/08/17 Time of Evaluation: 07:55 - Subjective Subjective: S&E a t bedside, chart reviewed, on BIPAP, labored breathing, s/p ABG. Abdominal pain slightly better but present, No N/V. No reports of overt GI bleeding. Objective - Vital Signs/Intake and Output Vital Signs (last 24 hours): Temp Pulse Resp BP Pulse Ox 97.5 F L 94 H 18 154/87 H 92 L 09/08/17 06:00 09/08/17 07:37 09/08/17 09:39 09/08/17 06:00 09/08/17 09:39 - Medications Medications: Current Medications Acetaminophen (Tylenol 325mg Tab) 650 mg PO Q6H PRN PRN Reason: Pain, moderate (4-7) Last Admin: 09/02/17 22:10 Dose: 650 mg Alprazolam (Xanax) 0.5 mg PO TID PRN; Protocol PRN Reason: Anxiety Last Admin: 09/08/17 00:26 Dose: 0.5 mg Arformoterol Tartrate (Brovana) 15 mcg IH [id number] [facility] Last Admin: 09/08/17 07:15 Dose: 15 mcg Artificial Tears (Refresh Opth Soln) 0.3 ml OU Q8H PRN PRN Reason: Dry eyes Ferrous Sulfate (Feosol) 324 mg PO TID [facility] Last Admin: 09/07/17 17:24 Dose: 324 mg Furosemide (Lasix) 40 mg IVP DAILY [facility] Last Admin: 09/07/17 09:40 Dose: 40 mg Iron Sucrose 100 mg/ Sodium (Chloride) 105 mls @ 210 mls/hr IV DAILY [facility] Stop: 09/10/17 15:16 Last Admin: 09/07/17 10:34 Dose: 210 mls/hr Propofol (Diprivan) 500 mg in 50 mls @ 2.164 mls/hr IV .Q23H7M PRN; Protocol; 5 MCG/KG/MIN PRN Reason: TITRATE PER MD ORDER Levalbuterol HCl (Xopenex) 1.25 mg IH [id number] [facility] Last Admin: 09/08/17 07:15 Dose: 1.25 mg Methylprednisolone (Solu-Medrol) 40 mg IVP Q12 [facility] Last Admin: 09/07/17 21:26 Dose: 40 mg Montelukast Sodium (Singulair) 10 mg PO HS [facility] Last Admin: 09/07/17 21:27 Dose: 10 mg Oxycodone HCl (Oxycodone Immediate Release Tab) 15 mg PO Q4H PRN PRN Reason: Pain, severe (8-10) Last Admin: 09/08/17 06:18 Dose: 15 mg Pantoprazole Sodium (Protonix Inj) 40 mg IVP Q12 [facility] Last Admin: 09/07/17 21:26 Dose: 40 mg Roflumilast (Daliresp) 500 mcg PO DAILY [facility] Last Admin: 09/07/17 09:41 Dose: 500 mcg Sotalol HCl (Betapace) 120 mg PO BID [facility] Last Admin: 09/07/17 17:25 Dose: 120 mg Tizanidine HCl (Zanaflex) 4 mg PO TID [facility] Last Admin: 09/07/17 17:24 Dose: 4 mg - Labs Labs: 09/08/17 05:30 09/08/17 05:30 PT 11.4 SECONDS (9.4-12.5) 09/04/17 09:30 INR 0.99 (0.93-1.08) 09/04/17 09:30 APTT 21.6 Seconds (25.1-36.5) L 09/04/17 09:30 - Constitutional Appears: No Acute Distress - Eye Exam Eye Exam: Normal appearance. absent: Scleral icterus - ENT Exam ENT Exam: Mucous Membranes Moist - Respiratory Exam Respiratory Exam: Accessory Muscle Use, Rhonchi, Wheezes, Respiratory Distress ( on BIPAP) - Cardiovascular Exam Cardiovascular Exam: +S1, +S2 - GI/Abdominal Exam GI & Abdominal Exam: Soft, Tenderness (RUQ), Normal Bowel Sounds. absent: Guarding, Rebound - Extremities Exam Extremities Exam: absent: Calf Tenderness - Neurological Exam Neurological Exam: Alert, Awake, Oriented x3 - Skin Skin Exam: Dry, Warm Assessment and Plan - Assessment and Plan (Free Text) Assessment: Assessment: RUQ abdominal pain, may be r/t hepatic congestion,s/p US, "ovid gas adjacent to pancreas, abd xray reports: Dilated small bowel loops, ? obstruction,status post CT scan no evidence of high-grade dysplasia but positive small bowel dilated loops Non-STEMI Acute exacerbation of COPD GI bleed, rectal bleed Anemia status post 2 units of packed RBCs total Urinary tract infection History of chronic atrial fibrillation, status post cardiac ablation Plan: Monitor H&H , GI bleed and transfuse as necessary Continue Protonix twice a day On oral Cipro On Solu-Medrol On iron supplement SCD for dvt prophlaxsis surgery on board on fulls but recommend to keep NPO till resp status improves Consider endoscopy when patient is cardiopulmonary stable. Seen and discussed with Dr. Bansal. <Felicia Bansal V - Last Filed: 09/08/17 19:59> Objective - Vital Signs/Intake and Output Vital Signs (last 24 hours): Temp Pulse Resp BP Pulse Ox 98 F 73 19 89/57 L 96 09/08/17 16:26 09/08/17 18:05 09/08/17 15:22 09/08/17 18:05 09/08/17 16:16 Intake and Output: 09/08/17 09/09/17 18:59 06:59 Intake Total 1117.0 11.8 Output Total 1000 Balance 117.0 11.8 - Medications Medications: Current Medications Acetaminophen (Tylenol 325mg Tab) 650 mg PO Q6H PRN PRN Reason: Pain, moderate (4-7) Last Admin: 09/02/17 22:10 Dose: 650 mg Alprazolam (Xanax) 0.5 mg PO TID PRN; Protocol PRN Reason: Anxiety Last Admin: 09/08/17 00:26 Dose: 0.5 mg Artificial Tears (Refresh Opth Soln) 0.3 ml OU Q8H PRN PRN Reason: Dry eyes Ferrous Sulfate (Feosol) 324 mg PO TID [facility] Last Admin: 09/08/17 18:03 Dose: 324 mg Heparin Sodium (Porcine) (Heparin) 5,000 units SC Q8 [facility] PRN Reason: Protocol Last Admin: 09/08/17 16:02 Dose: 5,000 units Iron Sucrose 100 mg/ Sodium (Chloride) 105 mls @ 210 mls/hr IV DAILY [facility] Stop: 09/10/17 15:16 Last Admin: 09/08/17 13:16 Dose: 210 mls/hr Vancomycin HCl (Vancomycin 1gm) 1 gm in 250 mls @ 167 mls/hr IVPB Q12H [facility] PRN Reason: Protocol Last Admin: 09/08/17 12:28 Dose: 167 mls/hr Meropenem/Sodium Chloride (Meropenem 1g/Ns 100ml Ivpb) 1 gm in 100 mls @ 100 mls/hr IVPB Q8 [facility] PRN Reason: Protocol Last Admin: 09/08/17 16:01 Dose: Not Given Propofol (Diprivan) 1,000 mg in 100 mls @ 2.164 mls/hr IV .Q24H PRN; Protocol; 5 MCG/KG/MIN PRN Reason: TITRATE PER MD ORDER Last Titration: 09/08/17 19:21 Dose: 0 mcg/kg/min, 0 mls/hr Fentanyl Citrate (Fentanyl Citrate/Sodium Chloride 1 Mg/100 Ml) 1,000 mcg in 100 mls @ 7.5 mls/hr IV .[id number] PRN; Protocol; 75 MCG/HR PRN Reason: TITRATE PER MD ORDER Last Admin: 09/08/17 18:19 Dose: 200 mcg/hr, 20 mls/hr diltiaZEM IVPB 100mg in NS (Cardizem 100mg In Ns) 100 mls @ 5 mls/hr IV .Q20H PRN; Protocol; 5 MG/HR PRN Reason: TITRATE PER MD ORDER Last Titration: 09/08/17 17:50 Dose: Infused Sodium Chloride (Sodium Chloride 0.9%) 1,000 mls @ 999 mls/hr IV .Q1H1M [facility] Stop: 09/08/17 20:21 Last Admin: 09/08/17 19:25 Dose: 999 mls/hr Levalbuterol HCl (Xopenex) 1.25 mg IH [id number] [facility] Last Admin: 09/08/17 13:23 Dose: 1.25 mg Methylprednisolone (Solu-Medrol) 40 mg IVP Q12 [facility] Last Admin: 09/08/17 11:51 Dose: 40 mg Montelukast Sodium (Singulair) 10 mg PO HS [facility] Last Admin: 09/07/17 21:27 Dose: 10 mg Oxycodone HCl (Oxycodone Immediate Release Tab) 15 mg PO Q4H PRN PRN Reason: Pain, severe (8-10) Last Admin: 09/08/17 06:18 Dose: 15 mg Pantoprazole Sodium (Protonix Inj) 40 mg IVP Q12 [facility] Last Admin: 09/08/17 11:51 Dose: 40 mg Roflumilast (Daliresp) 500 mcg PO DAILY [facility] Last Admin: 09/08/17 11:52 Dose: 500 mcg Sotalol HCl (Betapace) 120 mg PO BID [facility] Last Admin: 09/08/17 18:05 Dose: Not Given Tizanidine HCl (Zanaflex) 4 mg PO TID [facility] Last Admin: 09/08/17 17:59 Dose: 4 mg - Labs Labs: 09/08/17 05:30 09/08/17 05:30 PT 11.4 SECONDS (9.4-12.5) 09/04/17 09:30 INR 0.99 (0.93-1.08) 09/04/17 09:30 APTT 21.6 Seconds (25.1-36.5) L 09/04/17 09:30 Attending/Attestation - Attestation I have personally seen and examined this patient.: Yes I have fully participated in the care of the patient.: Yes I have reviewed all pertinent clinical information, including history, physical exam and plan: Yes Notes (Text): This is an addendum to GI progress report dictated by Kiki Vega APN.The patient was seen and examined earlier. Medical records, lab studies, imagings were reviewed. Last 24 hours events reviewed. Agreed with the above treatment plan as outlined in Kiki Vega APN's notes the with the addition of the following patient is back on ventilator Intubated for respiratory distress Abdomen soft bowel sounds present Follow up of the hemoglobin and hematocrit High-dose PPI Continue the antibiotics as per ID Endoscopy evaluation after optimization of cardiac pulmonary status 09/08/17 19:57
[2017-09-08 10:13] LABS: ARTERIAL BLOOD GAS HCO3 42.5 mmol/L (21-28); ARTERIAL BLOOD GAS HEMOGLOBIN 12.5 g/dL (11.7-17.4); ARTERIAL BLOOD GAS O2 CONTENT 15.3 ML/dl (15-23); ARTERIAL BLOOD GAS O2 SAT 89.8 % (95-98); ARTERIAL BLOOD GAS PCO2 64 mm/Hg (35-45); ARTERIAL BLOOD GAS PH 7.43 (7.35-7.45); ARTERIAL BLOOD GAS TCO2 44.5 mmol.L (22-28)
[2017-09-08] MEDS ORDERED: Propofol 10 mg/ml Inj (20 ML) IVP ONE (10:18)
--- NOTE | 2017-09-08 11:33 | RAD ---
HISTORY: intubated COMPARISON: Comparison is made with prior same-day exam FINDINGS: LUNGS: The ET tube is seen at appropriate position. Interval improvement in the previously seen bibasilar opacities since the previous study. Otherwise no interval change in the lungs PLEURA: No significant pleural effusion identified, no pneumothorax apparent. CARDIOVASCULAR: Normal. OSSEOUS STRUCTURES: No significant abnormalities. VISUALIZED UPPER ABDOMEN: NG tube seen extending to the abdomen. OTHER FINDINGS: None. IMPRESSION: Appropriate position of the ETT. Interval improvement in the lung bases since the previous study.
[2017-09-08 11:49] LABS: VENOUS BLOOD GAS BASE EXCESS 16.3 mmol/L (0.0-2.0); VENOUS BLOOD GAS PO2 40 mm/Hg (30-55); VENOUS BLOOD PH 7.37 (7.32-7.43)
[2017-09-08] MEDS: MethylPREDNISolone 40 mg Vial IVP SCH ×2 (11:51→22:00)
[2017-09-08] MEDS ORDERED: diltiaZEM IVPB 100mg in NS 100 ML IV PRN (12:18)
[2017-09-08] MEDS: Vancomycin 1gm in NS 250ml 1 GM/250 ML BAG IVPB SCH ×2 (12:28→22:55)
--- NOTE | 2017-09-08 12:35 | US ---
HISTORY: Leg pain and swelling. Evaluate for DVT PHYSICIAN(S): De Campoverde MD. TECHNIQUE: Duplex sonography and color-flow Doppler with graded compression were used to evaluate the deep venous systems of both lower extremities. FINDINGS: The visualized deep venous systems of both lower extremities are sonographically normal and compressible. Normal wave forms and augmentation are seen. There is no sonographic evidence for deep venous thrombosis in the visualized segments of both lower extremities. IMPRESSION: No sonographic evidence for deep venous thrombosis in the visualized segments of both lower extremities.
[2017-09-08] MEDS: Fentanyl 1000mcg/100ml NS 1,000 MCG/100 ML BAG IV PRN ×3 (12:39→22:45)
[2017-09-08] MEDS: Meropenem 1g/NS 100mL IVPB 1 GM/100 ML PIGGYBACK IVPB SCH ×3 (12:46→22:00)
--- NOTE | 2017-09-08 12:55 | RAD ---
HISTORY: infiltrate COMPARISON: Portable chest 09/05/2017. FINDINGS: LUNGS: Bibasilar medial atelectasis favored over infiltrates though the latter is not completely excluded. Clinically correlate further. PLEURA: Borderline right pleural effusion. None is seen the left. No pneumothorax bilaterally. CARDIOVASCULAR: Normal. OSSEOUS STRUCTURES: No significant abnormalities. VISUALIZED UPPER ABDOMEN: Normal. OTHER FINDINGS: None. IMPRESSION: Bibasilar atelectasis favored over infiltrates bilaterally. Clinically correlate. Trace right pleural effusion is not completely excluded.
[2017-09-08] MEDS ORDERED: Iodixanol 320 MG/ML 100 ML BOTTLE IV ONE (13:37)
--- NOTE | 2017-09-08 15:40 | PN ---
DATE: 09/08/2017 SUBJECTIVE: The patient was seen and examined at the bedside. He had an episode of respiratory distress in the morning. His heart rate went up to 160. He started to gasp for air and was working hard to breath to the point that he asked to be put on ventilator. After initial short BPAP trial he was intubated for impending respiratory failure. Currently, he is on PRVC 420/16/5/60%. PHYSICAL EXAMINATION: VITAL SIGNS: His oxygen saturation is 90%, his heart rate is 83, his blood pressure is 116/68, his end-tidal CO2 on the monitor 41, O2 sat 90%, respiratory rate 23. HEENT: Head and neck atraumatic. LUNGS: Few wheezes bilaterally. HEART: Regular rate and rhythm. S1 and S2 normal. ABDOMEN: Soft, nontender, and nondistended. MUSCULOSKELETAL: Trace bilateral pedal and ankle edema. NEUROLOGIC: The patient moves all extremities spontaneously. SKIN: Moist. PSYCH: The patient is sedated with propofol. Chest x-ray showed no acute infiltrate, no active pulmonary disease. Endotracheal tube is in correct position and NG tube is below diaphragm. LABORATORY DATA: WBC is 17.3, hemoglobin 12.1, and platelet count 405. Sodium 142, potassium 4.1, chloride 95, carbon dioxide 40, anion gap 12. BUN 24, creatinine 0.5. Glucose 150. ABG before intubation 7.45, pCO2 of 59, pO2 of 44, down from 61. ABG after intubation 7.43, pCO2 of 64, pO2 of 51, O2 sat 89%. MEDICATIONS: Tylenol p.r.n., Brovana, Lasix 40 mg daily which will be held, Solu-Medrol 40 mg IV q.12, Singulair, oxycodone p.r.n., Protonix, propofol, Daliresp, sotalol, and Zanaflex. ASSESSMENT AND PLAN: This is a 57-year-old gentleman who is intubated for combined hypercapnic and hypoxemic respiratory failure in the setting of severe COPD, bronchospasm and chronic ventilatory failure. The patient does have leukocytosis which is a new change compared with the previous labs and put infection with severe sepsis on the differential diagnosis list. afib with RVR noted--> cardizem drip started; d-dimers, venous doppler is ordered; depending on the results CT chest with PE protocol will be considered. At present time, we will proceed with antibiotics, septic workup, procalcitonin, bronchodilators. We will continue with steroids and Daliresp. Knowing that the patient has enteritis, we will obtain CAT scan of the abdomen and pelvis, to evaluate whether or not it might have contributed to the patient's clinical deterioration. I will also stop Lasix as the patient might need fluids in the setting of severe sepsis. I will also order echocardiogram. I will check troponin. I will do 12-lead EKG. We will continue with protective lung ventilation strategy, tidal volume of 6 to 8 mL per predicted body weight and plateau pressure less than 30. We will maintain I to E ratio more than 1 to 2.5. We will continue with head of bed elevated more than 35 degrees, DVT and GI prophylaxis, oral hygiene. The patient has normal creatinine and making urine. We will put Live catheter in to monitor urine output with a goal of more than 0.5 mL/kg/hour. We will maintain mean arterial pressure of more than 65, euvolemia, euglycemia for additional nephroprotective effect. We will try to avoid nephrotoxic medication, but not in the expense of treating underlying disease. Addendum: No evidence of VTE-->discussed need for TAC for afib with Dr. Samuel: if not spontaneously converted to sinus rhythm within 12-24 hrs TAC will be considered. CT abdomen/pelvis-->no acute changes c/w previous CT; CTH no acute intracranial pathology. Heparin for DVT prophylaxis started. ccm time 40 min Luisito Cameron MD [facility]AN[facility]
--- NOTE | 2017-09-08 16:05 | CT ---
PROCEDURE: CT HEAD WITHOUT CONTRAST. HISTORY: AMS COMPARISON: Unenhanced head CT 08/08/2013. TECHNIQUE: Axial computed tomography images were obtained through the head/brain without intravenous contrast. Radiation dose: Total exam DLP = 933.38 mGy-cm. This CT exam was performed using one or more of the following dose reduction techniques: Automated exposure control, adjustment of the mA and/or kV according to patient size, and/or use of iterative reconstruction technique. FINDINGS: HEMORRHAGE: No intracranial hemorrhage. BRAIN: Relatively extensive bilateral septum semiovale, optic radiation subcortical white matter appreciate throughout the bilateral cerebellar hemispheres once again. The pattern is not appear significantly increased in the interval and there is no cortical edema to suggest an acute or subacute brain infarction at this time. MRI follow-up may be useful for further characterization. While this may be a function of relatively early advanced chronic microangiopathy, other etiologies including vasculitis and demyelination are not excluded as well as others on additional clinical correlation is recommended. If there is a contraindication to MRI then follow-up CT with contrast is advised. Very limited diffuse cerebral atrophy is identified. VENTRICLES: Unremarkable. No hydrocephalus. CALVARIUM: Unremarkable. PARANASAL SINUSES: Unremarkable as visualized. No significant inflammatory changes. MASTOID AIR CELLS: Unremarkable as visualized. No inflammatory changes. OTHER FINDINGS: None. IMPRESSION: Stable unenhanced head CT including extensive white matter lucency throughout the cerebrum but appearing to spare the corpus callosum. No suspicious renal findings as compared to prior head CT dated 08/08/2013. No definite cortical edema cyst to suggest an acute separate brain infarction at this time. Follow-up MRI is advised without contrast as the pattern white-matter changes rather prominent for this patient's age unless there is a prior history of vasculopathy related comorbidity such as diabetes. Further clinical correlation is advised.
--- NOTE | 2017-09-08 16:31 | CT ---
PROCEDURE: CT Chest with contrast (Pulmonary Angiogram) HISTORY: PE COMPARISON: Unenhanced chest CT 02/08/2016. TECHNIQUE: Axial computed tomography images were obtained of the chest in the pulmonary arterial phase of enhancement. Coronal and sagittal reformatted images were created and reviewed. Intravenous contrast dose: Visipaque 320, 100 cc Radiation dose: Total exam DLP = 478.05 mGy-cm. This CT exam was performed using one or more of the following dose reduction techniques: Automated exposure control, adjustment of the mA and/or kV according to patient size, and/or use of iterative reconstruction technique. FINDINGS: PULMONARY ARTERIES: Unremarkable. No pulmonary embolism. AORTA: No acute findings. No thoracic aortic aneurysm. LUNGS: Tiny patchy opacities are scattered in the bilateral upper and lower lobes as well as minimally affecting the right middle lobe suggestive of possible atypical pneumonitis pattern. Limited possibility of mixed alveolar/interstitial pulmonary disease is not excluded and further clinical correlation is recommended. Bilateral basilar dependent atelectasis appreciated. Central airways are remarkable for endotracheal tube intubation terminating at the mid trachea. Limited mucoid material is pooling in the distal trachea and into the intermediate size bronchi bilaterally. For underlying fibrosis in the bilateral bases or tiny pulmonary nodule not excluded bilaterally in the remaining lung sousa including the bases obscured by the alveolar/ interstitial pattern described above. PLEURAL SPACES: Unremarkable. No effusion or pneuomothorax. HEART: Unremarkable. No cardiomegaly. No significant pericardial effusion. LYMPH NODES: No lymphadenopathy. BONES, CHEST WALL: Multiple interval severe compression fracture identified T6, T8, T9 and T10 with a moderate anterior wedge compression fracture identified at T7 without severe spinal stenosis resulting. OTHER FINDINGS: Nasogastric tube in situ terminating at the gastric viscus. IMPRESSION: 1. No CT evidence of pulmonary embolus at this time. 2. Limited mixed alveolar/interstitial pneumonitis affects the bilateral upper and lower lobes and right middle lobe mildly. 3. Limited bilateral basilar atelectasis with underlying pulmonary fibrosis not excluded. Tiny scattered pulmonary nodules are difficult to completely exclude as per above. 4. Indeterminate age advanced compression fracture identified T6, T8, T9 and T10 with a moderate compression fracture T7 in the interval. These are likely osteoporosis related but are indeterminate in age.
--- NOTE | 2017-09-08 16:39 | CT ---
PROCEDURE: CT Abdomen and Pelvis without intravenous contrast HISTORY: severe sepsis COMPARISON: None. TECHNIQUE: Helical CT of the abdomen and pelvis was performed without oral or intravenous contrast as per referring physician request.. Contrast Dose: None Radiation dose: Total exam DLP = 811.84 mGy-cm. This CT exam was performed using one or more of the following dose reduction techniques: Automated exposure control, adjustment of the mA and/or kV according to patient size, and/or use of iterative reconstruction technique. FINDINGS: LOWER THORAX: Unremarkable. LIVER: Unremarkable. No gross lesion or ductal dilatation. GALLBLADDER AND BILE DUCTS: Unremarkable. PANCREAS: Unremarkable. No gross lesion or ductal dilatation. SPLEEN: Unremarkable. ADRENALS: Unremarkable. No mass. KIDNEYS AND URETERS: Unremarkable. No hydronephrosis. No solid mass. VASCULATURE: Unremarkable. No aortic aneurysm. BOWEL: Oral contrast seen retained throughout large-bowel likely from prior administration on 09/06/2017. Limited sigmoid diverticulosis again identified without diverticulitis. APPENDIX: Not identified. No CT pattern suggest appendicitis at this time nevertheless. PERITONEUM: Unremarkable. No free fluid. No free air. LYMPH NODES: Unremarkable. No enlarged lymph nodes. BLADDER: Unremarkable. REPRODUCTIVE: Probable prior prostatectomy. Live catheter remains placed terminating in the urinary bladder lumen with the urinary bladder partially decompressed. BONES: A [id number] compression fracture of L5 is appreciated as well as at L2 which are not clearly identified on the prior and pelvis CT 05/29/2017. Their age is indeterminate. OTHER FINDINGS: None. IMPRESSION: No definite acute intra abdominal or pelvic findings as discussed above. No definitive suspicious fluid collection abscess identified in this unenhanced CT. No measure edema. Stable sigmoid diverticulosis again evident. The overall study is not significantly changed compared to prior abdomen and pelvis CT with contrast 09/06/2017. A nasogastric tube is identified however in the interval terminating in the gastric viscus. Residual oral contrast remains throughout the colon from prior administration 09/06/2017. Compression fracture of L5 is again seen.
--- NOTE | 2017-09-08 16:53 | CP.PCM.CON ---
History of Present Illness - History of Present Illness History of Present Illness: 57 year old male with PMH of CAD with chronic CHF, atrial fibrillation, COPD, history of DVT was initially admitted in [facility] [place] [facility] for shortness of breath and possible small bowel obstruction. He was being monitored closely in the ICU but the continues to have worsening respiratory status and the patient needed to be intubated this morning. His WBC count also increased today and had been normal the previous day. CXR and CT A/P has been showing lower lobe infiltrates and Infectious Diseases consult is requested to further evaluate and manage. He is currently on the ventilator, no fevers currently, no diarrhea. Review of Systems - Review of Systems Systems not reviewed;Unavailable: Intubated Past Patient History - Infectious Disease Hx of Infectious Diseases: None - Tetanus Immunizations Tetanus Immunization: Unknown - Past Medical History & Family History Past Medical History?: Yes - Past Social History Smoking Status: Former Smoker - CARDIAC Hx Pacemaker: No - PULMONARY Hx Chronic Obstructive Pulmonary Disease (COPD): Yes - NEUROLOGICAL Hx Neurological Disorder: No - HEENT Hx HEENT Problems: Yes (CONTACTS,WEARS RX GLASSES AT TIMES,H/O OF NOSEBLEEDS) Other/Comment: nosebleeds - RENAL Hx Chronic Kidney Disease: No - ENDOCRINE/METABOLIC Other/Comment: steroid induced diabetes - HEMATOLOGICAL/ONCOLOGICAL Hx Cancer: No - INTEGUMENTARY Other/Comment: tatoo r arm - MUSCULOSKELETAL/RHEUMATOLOGICAL Hx Falls: No - GASTROINTESTINAL Hx Gastrointestinal Disorders: Yes (appendectomy,colon sx,gerd) - GENITOURINARY/GYNECOLOGICAL Hx Genitourinary Disorders: No Hx Reproductive Disorders: No - PSYCHIATRIC Hx Anxiety: Yes Hx Substance Use: No - SURGICAL HISTORY Hx Mastectomy: No - ANESTHESIA Hx Anesthesia: Yes Hx Anesthesia Reactions: No Hx Malignant Hyperthermia: No Meds Allergies/Adverse Reactions: Allergies Allergy/AdvReac Type Severity Reaction Status Date / Time No Known Allergies Allergy Verified 09/02/17 14:51 - Medications Medications: Current Medications Acetaminophen (Tylenol 325mg Tab) 650 mg PO Q6H PRN PRN Reason: Pain, moderate (4-7) Last Admin: 09/02/17 22:10 Dose: 650 mg Alprazolam (Xanax) 0.5 mg PO TID PRN; Protocol PRN Reason: Anxiety Last Admin: 09/08/17 00:26 Dose: 0.5 mg Artificial Tears (Refresh Opth Soln) 0.3 ml OU Q8H PRN PRN Reason: Dry eyes Ferrous Sulfate (Feosol) 324 mg PO TID [facility] Last Admin: 09/07/17 17:24 Dose: 324 mg Heparin Sodium (Porcine) (Heparin) 5,000 units SC Q8 ERNESTINA PRN Reason: Protocol Iron Sucrose 100 mg/ Sodium (Chloride) 105 mls @ 210 mls/hr IV DAILY [facility] Stop: 09/10/17 15:16 Last Admin: 09/07/17 10:34 Dose: 210 mls/hr Vancomycin HCl (Vancomycin 1gm) 1 gm in 250 mls @ 167 mls/hr IVPB Q12H ERNESTINA PRN Reason: Protocol Meropenem/Sodium Chloride (Meropenem 1g/Ns 100ml Ivpb) 1 gm in 100 mls @ 100 mls/hr IVPB Q8 ERNESTINA PRN Reason: Protocol Propofol (Diprivan) 1,000 mg in 100 mls @ 2.164 mls/hr IV .Q24H PRN; Protocol; 5 MCG/KG/MIN PRN Reason: TITRATE PER MD ORDER Levalbuterol HCl (Xopenex) 1.25 mg IH [id number] [facility] Last Admin: 09/08/17 07:15 Dose: 1.25 mg Methylprednisolone (Solu-Medrol) 40 mg IVP Q12 [facility] Last Admin: 09/07/17 21:26 Dose: 40 mg Montelukast Sodium (Singulair) 10 mg PO HS [facility] Last Admin: 09/07/17 21:27 Dose: 10 mg Oxycodone HCl (Oxycodone Immediate Release Tab) 15 mg PO Q4H PRN PRN Reason: Pain, severe (8-10) Last Admin: 09/08/17 06:18 Dose: 15 mg Pantoprazole Sodium (Protonix Inj) 40 mg IVP Q12 [facility] Last Admin: 09/07/17 21:26 Dose: 40 mg Roflumilast (Daliresp) 500 mcg PO DAILY [facility] Last Admin: 09/07/17 09:41 Dose: 500 mcg Sotalol HCl (Betapace) 120 mg PO BID [facility] Last Admin: 09/07/17 17:25 Dose: 120 mg Tizanidine HCl (Zanaflex) 4 mg PO TID [facility] Last Admin: 09/07/17 17:24 Dose: 4 mg Physical Exam - Constitutional Appears: Other (intubated and sedated) - ENT Exam Additional comments: ET tube in place - Respiratory Exam Respiratory Exam: Decreased Breath Sounds - Cardiovascular Exam Cardiovascular Exam: +S1, +S2 - GI/Abdominal Exam GI & Abdominal Exam: Soft. absent: Tenderness Results - Vital Signs Recent Vital Signs: Last Vital Signs Temp 97.5 F L 09/08/17 06:00 Pulse 111 H 09/08/17 11:12 Resp 18 09/08/17 09:39 BP 116/81 09/08/17 11:12 Pulse Ox 86 L 09/08/17 11:12 - Labs Result Diagrams: 09/08/17 05:30 09/08/17 05:30 Labs: Laboratory Results - last 24 hr 09/08/17 09/08/17 09/08/17 03:00 05:30 05:30 WBC 17.3 H D RBC 4.73 Hgb 12.1 L Hct 41.0 L MCV 86.7 MCH 25.6 MCHC 29.5 L RDW 17.8 H Plt Count 405 MPV 9.4 pCO2 74 H* pO2 61.0 L HCO3 40.9 H* ABG pH 7.35 ABG Total CO2 43.2 H ABG O2 Saturation 90.7 L ABG O2 Content 14.0 L ABG Base Excess 12.6 H ABG Hemoglobin 11.2 L ABG Carboxyhemoglobin 2.0 H POC ABG HHb (Measured) 9.1 H ABG Methemoglobin 0.4 ABG O2 Capacity 15.4 L ABG Potassium VBG pH VBG pCO2 VBG HCO3 VBG Total CO2 VBG O2 Sat (Calc) VBG Base Excess VBG Potassium Hgb O2 Saturation 88.5 L Glucose Lactate FiO2 60.0 Inspiratory BiPAP Sodium 142 Potassium 4.1 Chloride 95 L Carbon Dioxide 40 H Anion Gap 12 BUN 24 H Creatinine 0.5 L Est GFR ( Amer) > 60 Est GFR (Non-Af Amer) > 60 Random Glucose 150 H Calcium 9.7 Total Bilirubin 0.6 AST 33 ALT 57 H Alkaline Phosphatase 118 Total Protein 7.0 Albumin 3.6 Globulin 3.4 Albumin/Globulin Ratio 1.1 Arterial Blood Potassium Venous Blood Potassium 09/08/17 09/08/17 09/08/17 08:15 10:09 11:44 WBC RBC Hgb Hct MCV MCH MCHC RDW Plt Count MPV pCO2 59 H 64 H pO2 44.0 L* 51.0 L 40 HCO3 41.0 H* 42.5 H* ABG pH 7.45 7.43 ABG Total CO2 42.8 H 44.5 H ABG O2 Saturation 84.9 L 89.8 L ABG O2 Content 15.3 ABG Base Excess 14.2 H 15.2 H ABG Hemoglobin 12.5 ABG Carboxyhemoglobin 2.2 H POC ABG HHb (Measured) 9.9 H ABG Methemoglobin 0.6 ABG O2 Capacity 17.0 ABG Potassium 3.4 L VBG pH 7.37 VBG pCO2 79.0 H* VBG HCO3 45.7 H VBG Total CO2 48.1 H VBG O2 Sat (Calc) 74.1 H VBG Base Excess 16.3 H VBG Potassium 3.4 L Hgb O2 Saturation 87.4 L Glucose 131 H 106 Lactate 0.8 1.3 FiO2 50.0 60.0 21.0 Inspiratory BiPAP 16 Sodium 138.0 139.0 Potassium Chloride 98.0 102.0 Carbon Dioxide Anion Gap BUN Creatinine Est GFR ( Amer) Est GFR (Non-Af Amer) Random Glucose Calcium Total Bilirubin AST ALT Alkaline Phosphatase Total Protein Albumin Globulin Albumin/Globulin Ratio Arterial Blood Potassium 3.4 L Venous Blood Potassium 3.4 L Assessment & Plan - Assessment and Plan (Free Text) Plan: Assessment New onset systemic inflammatory response syndrome, consider severe sepsis with VDRF due to bilateral lower lobe HCAP in this patient with possible small bowel obstruction CAD with chronic CHF atrial fibrillation COPD history of DVT Plan Started the patient on Vancomycin and Merrem - follow up blood cx, sputum cx, PCT, repeat CXR will monitor clinically discussed with Dr. Cameron
--- NOTE | 2017-09-08 18:19 | CARD ---
APPROVED REPORT EXAM: LIMITED Two-dimensional and M-mode echocardiogram. INDICATION EVALUATE RV/CARDIOGENIC SHOCK 2D DIMENSIONS IVSd1.2 (0.7-1.1cm)LVDd4.1 (3.9-5.9cm) PWd1.2 (0.7-1.1cm)LVDs3.1 (2.5-4.0cm) FS (%) 24.3 %LVEF (%)48.9 (>50%) Mitral Valve E/A ratio0.0 TDI E/Lateral E'0.0E/Medial E'0.0 Tricuspid Valve TR Peak [id number] [id number] Peak Gr.37mmHg [id number] LEFT VENTRICLE The left ventricle is normal size. There is normal left ventricular wall thickness. Left ventricle systolic function is borderline. No left ventricle thrombus noted on this study. RIGHT VENTRICLE The right ventricle is normal size. There is normal right ventricular wall thickness. RV Systolic function is moderately reduced. ATRIA The left atrium size is normal. The right atrium size is normal. AORTIC VALVE The aortic valve is normal in structure. No aortic regurgitation is present. MITRAL VALVE The mitral valve is normal in structure. There is no mitral valve regurgitation noted. TRICUSPID VALVE There is mild tricuspid regurgitation. There is mild to moderate pulmonary hypertension. GREAT VESSELS The aortic root is normal in size. PERICARDIAL EFFUSION There is a small loculated anterior pericardial effusion. <Conclusion> The left ventricle is normal size. There is normal left ventricular wall thickness. Left ventricle systolic function is borderline. RV Systolic function is moderately reduced. There is mild tricuspid regurgitation. There is mild to moderate pulmonary hypertension.
[2017-09-08] MEDS ORDERED: Sodium Chloride 0.9% 1,000 ML IV STA (19:21)
--- NOTE | 2017-09-08 23:14 | PN ---
DATE: SUBJECTIVE: The patient is a 57-year-old, went into respiratory distress, was intubated this morning. When I examined the patient, he is intubated and sedated. PHYSICAL EXAMINATION VITAL SIGNS: He is afebrile, pulse 73, respirations 18, blood pressure 89/57. LUNGS: Bilateral diffusely decreased breath sounds. HEART: S1 and S2 audible. ABDOMEN: Soft, obese, nontender. No rebound, no guarding. NEUROLOGIC: He is sedated. LABORATORY DATA: WBC 17.3, hemoglobin 12, hematocrit 41, platelets of 405. Chemistry: Sodium 142, potassium 4.1, chloride 95, CO2 of 40, BUN 24, creatinine 0.5, blood sugar of 150. CT scan of the abdomen and pelvis was done that shows no definite acute intraabdominal pelvic finding, with no suspicious fluid collection. Had CT scan of the chest done that shows limited mixed alveolar interstitial pneumonitis, bilateral upper and lower lung regions, affecting the right middle lobe, bilateral basal atelectasis. ASSESSMENT: 1. Respiratory failure. 2. Chronic obstructive pulmonary disease. 3. History of atrial fibrillation, currently in sinus rhythm. 4. Narcotic dependence. 5. Anxiety disorder. 6. Chronic anemia. PLAN: Currently, he is on vent support. We will continue him on antibiotic. He is on sotalol. He is on diltiazem because of his sinus tachycardia and continue him on nebulizer treatment. He is on DVT prophylaxis. We will reevaluate in a.m. ____ overall prognosis. Ross Bowman MD
--- NOTE | 2017-09-08 23:32 | CARD ---
APPROVED REPORT EKG Measurement Heart [id number] <Conclusion> Sinus tachycardia, APCs Nonspecific ST abnormality Abnormal ECG
[2017-09-09] MEDS: Propofol 10 mg/ml 1,000 MG/100 ML VIAL IV PRN ×5 (00:47→20:25)
[2017-09-09] MEDS: Levalbuterol 1.25 MG/3 ML Inhal Soln UD IH SCH ×4 (01:05→19:13)
[2017-09-09] MEDS: Fentanyl 1000mcg/100ml NS 1,000 MCG/100 ML BAG IV PRN ×5 (04:15→22:55)
[2017-09-09] MEDS: Meropenem 1g/NS 100mL IVPB 1 GM/100 ML PIGGYBACK IVPB SCH ×3 (05:07→21:32)
[2017-09-09 06:07] LABS: ARTERIAL BLOOD GAS HCO3 33.5 mmol/L (21-28); ARTERIAL BLOOD GAS HEMOGLOBIN 8.9 g/dL (11.7-17.4); ARTERIAL BLOOD GAS O2 CAPACITY 12.4 mL/dl (16-24); ARTERIAL BLOOD GAS O2 CONTENT 12.1 ML/dl (15-23); ARTERIAL BLOOD GAS O2 SAT 97.8 % (95-98); ARTERIAL BLOOD GAS PCO2 58 mm/Hg (35-45); ARTERIAL BLOOD GAS PH 7.37 (7.35-7.45); ARTERIAL BLOOD GAS TCO2 35.3 mmol.L (22-28)
--- NOTE | 2017-09-09 06:16 | PN ---
DATE: 09/08/2017 PULMONARY CRITICAL CARE PROGRESS NOTE REFERRING PHYSICIAN: Dr. Bowman. SUBJECTIVE: Intubated and sedated. Apparently part of the night, he was on high-flow oxygen and then, noninvasive ventilation, became very short of breath, ended up being placed on the ventilator; getting CT scan of the head, chest, abdomen and pelvis. No hemoptysis, no hematemesis, no hematuria. No diarrhea reported. OBJECTIVE GENERAL: Intubated and sedated. VITAL SIGNS: Temperature is 98, heart rate 73, respiratory rate is 20, blood pressure 89/57, pulse ox 96% on ventilator, 65% oxygen. HEENT: Moist mucous membranes. ET tube, not much secretion. LUNGS: Have a prolonged expiratory phase with rhonchi and crackles. HEART: S1 and S2. ABDOMEN: Soft, nondistended, nontender. EXTREMITIES: No edema. NEUROLOGICAL: Intubated and sedated. MEDICATIONS: He is on sotalol 120 mg twice a day, also patient is on diltiazem for atrial fibrillation and rapid ventricular response, Daliresp 500 mcg daily, on propofol, also on fentanyl, ferrous sulfate 324 mg three times a day, heparin 5000 units subcutaneous q. 8 hours, iron sucrose 100 mg daily, meropenem is 1 g IV q. 8 hours, oxycodone immediate release 50 mg q. 4 hours p.r.n., Protonix 40 mg q. 12 hours, artificial tears 0.3 mL q. 8 hours, Singulair 10 mg daily, Solu-Medrol 40 mg q. 12 hours, Tylenol on p.r.n. basis, vancomycin 1 g IV q. 12 hours, Xanax 0.5 mg three times a day p.r.n.,Xopenex inhaled q. 6 hours, Zanaflex 4 mg three times a day. LABORATORY DATA: Shows sodium 142, potassium 4.1, chloride 95, bicarbonate 40, BUN 24, creatinine 0.5. Glucose 150. Calcium is 9.7, magnesium is 2.5. AST 33, ALT 57, alkaline phosphatase is 118. Troponin is less than 0.01, albumin 3.6, procalcitonin is 0.07. Microbiology: Urine culture has Citrobacter freundii. CT of the chest negative for PE and shows bilateral interstitial alveolar infiltrate, may have some component of fibrosis. CT of the head is unremarkable. Also, CT of the abdomen is unremarkable. Venous Doppler of lower extremity is negative for DVT. Echocardiogram suggested moderately decreased systolic function, I am not sure what moderately meant; 40% or 50%?, but also there is a significant pulmonary hypertension. ASSESSMENT AND PLAN: Respiratory failure, on ventilator, has a chronic lung disease, has a bilateral interstitial alveolar infiltrate. Procalcitonin is negative. Does have cardiomyopathy with pulmonary hypertension, anemia, significant compression fracture from T7 to T10, coronary artery disease, history of atrial fibrillation with rapid ventricular response, on beta judith and also on Cardizem presently. We will continue intravenous and inhaled bronchodilators, antibiotics as per Infectious Diseases. We will send proBNP for the morning. If blood pressure low, continue diuresis. Nasogastric tube in place. We will suggest starting the feeding. Followup ABG, chest x-ray, CBC, CMP in the morning. Critical care time, more than 35 minutes. Thank you and we will follow with you. Shaila Mercado MD
[2017-09-09 06:22] LABS: ALB/GLOB RATIO 1.1 (1.1-1.8); ALBUMIN 3.1 g/dL (3.0-4.8); ALT/SGPT 50 U/L (7-56); AST/SGOT 19 U/L (17-59); B-TYPE NATRIURETIC PEPTIDE 699 pg/mL (0-450); BLOOD UREA NITROGEN 26 mg/dL (7-21); CALCIUM 9.4 mg/dL (8.4-10.5); GFR AFRICAN-AMERICAN > 60; GFR NON-AFRICAN AMERICAN > 60
[2017-09-09] MEDS ORDERED: DOBUTamine 500mg/250ml D5W 500 MG/250 ML BAG IV PRN (09:51)
[2017-09-09] MEDS: MethylPREDNISolone 40 mg Vial IVP SCH ×2 (09:52→21:31)
[2017-09-09] MEDS: Vancomycin 1gm in NS 250ml 1 GM/250 ML BAG IVPB SCH ×2 (09:52→21:48)
--- NOTE | 2017-09-09 10:20 | RAD ---
HISTORY: Intubated. COMPARISON: September 08, 2017. Chest x-ray. September 08, 2017. CT pulmonary angiogram. FINDINGS: LUNGS: No active pulmonary disease. PLEURA: No significant pleural effusion identified, no pneumothorax apparent. CARDIOVASCULAR: No radiographic findings to suggest acute or significant cardiovascular disease. OSSEOUS STRUCTURES: No significant abnormalities. VISUALIZED UPPER ABDOMEN: Normal. OTHER FINDINGS: Satisfactory position of endotracheal tube and nasogastric tube unchanged compared to the prior study. IMPRESSION: No active pulmonary disease. Stable position of support apparatus. No significant interval change compared to the prior examination(s).
--- NOTE | 2017-09-09 10:50 | CP.PCM.PN ---
Subjective - Date & Time of Evaluation Date of Evaluation: 09/09/17 Time of Evaluation: 07:20 - Subjective Subjective: Pt seen and examined, intubated, on sedation, but awake, alert, in NAD, no complaints. Objective - Vital Signs/Intake and Output Vital Signs (last 24 hours): Temp Pulse Resp BP Pulse Ox 97.2 F L 74 19 101/54 L 100 09/09/17 08:00 09/09/17 09:51 09/08/17 15:22 09/09/17 09:51 09/09/17 08:30 Intake and Output: 09/09/17 09/09/17 06:59 18:59 Intake Total 368.0 200 Balance 368.0 200 - Medications Medications: Current Medications Acetaminophen (Tylenol 325mg Tab) 650 mg PO Q6H PRN PRN Reason: Pain, moderate (4-7) Last Admin: 09/02/17 22:10 Dose: 650 mg Alprazolam (Xanax) 0.5 mg PO TID PRN; Protocol PRN Reason: Anxiety Last Admin: 09/08/17 00:26 Dose: 0.5 mg Artificial Tears (Refresh Opth Soln) 0.3 ml OU Q8H PRN PRN Reason: Dry eyes Heparin Sodium (Porcine) (Heparin) 5,000 units SC Q8 ERNESTINA PRN Reason: Protocol Last Admin: 09/09/17 05:07 Dose: 5,000 units Iron Sucrose 100 mg/ Sodium (Chloride) 105 mls @ 210 mls/hr IV DAILY ERNESTINA Stop: 09/10/17 15:16 Last Admin: 09/09/17 09:52 Dose: 210 mls/hr Vancomycin HCl (Vancomycin 1gm) 1 gm in 250 mls @ 167 mls/hr IVPB Q12H ERNESTINA PRN Reason: Protocol Last Admin: 09/09/17 09:52 Dose: 167 mls/hr Meropenem/Sodium Chloride (Meropenem 1g/Ns 100ml Ivpb) 1 gm in 100 mls @ 100 mls/hr IVPB Q8 ERNESTINA PRN Reason: Protocol Last Admin: 09/09/17 05:07 Dose: 100 mls/hr Propofol (Diprivan) 1,000 mg in 100 mls @ 2.164 mls/hr IV .Q24H PRN; Protocol; 5 MCG/KG/MIN PRN Reason: TITRATE PER MD ORDER Last Admin: 09/09/17 10:32 Dose: 46.21 mcg/kg/min, 20 mls/hr Fentanyl Citrate (Fentanyl Citrate/Sodium Chloride 1 Mg/100 Ml) 1,000 mcg in 100 mls @ 7.5 mls/hr IV [id number] PRN; Protocol; 75 MCG/HR PRN Reason: TITRATE PER MD ORDER Last Admin: 09/09/17 08:17 Dose: 200 mcg/hr, 20 mls/hr Dobutamine HCl/Dextrose (Dobutamine/Dextrose 5% 500mg/250ml) 500 mg in 250 mls @ 4.273 mls/hr IV .Q24H PRN; Protocol; 2 MCG/KG/MIN PRN Reason: TITRATE PER PROTOCOL Levalbuterol HCl (Xopenex) 1.25 mg IH [id number] [facility] Last Admin: 09/09/17 08:15 Dose: 1.25 mg Methylprednisolone (Solu-Medrol) 40 mg IVP Q12 [facility] Last Admin: 09/09/17 09:52 Dose: 40 mg Montelukast Sodium (Singulair) 10 mg PO HS [facility] Last Admin: 09/08/17 22:00 Dose: 10 mg Oxycodone HCl (Oxycodone Immediate Release Tab) 15 mg PO Q4H PRN PRN Reason: Pain, severe (8-10) Last Admin: 09/08/17 06:18 Dose: 15 mg Pantoprazole Sodium (Protonix Inj) 40 mg IVP Q12 [facility] Last Admin: 09/09/17 09:53 Dose: 40 mg Roflumilast (Daliresp) 500 mcg PO DAILY [facility] Last Admin: 09/09/17 09:59 Dose: 500 mcg Sotalol HCl (Betapace) 120 mg PO BID [facility] Last Admin: 09/09/17 09:51 Dose: 120 mg Tizanidine HCl (Zanaflex) 4 mg PO TID [facility] Last Admin: 09/09/17 10:03 Dose: 4 mg - Labs Labs: 09/08/17 05:30 09/09/17 05:00 PT 11.4 SECONDS (9.4-12.5) 09/04/17 09:30 INR 0.99 (0.93-1.08) 09/04/17 09:30 APTT 21.6 Seconds (25.1-36.5) L 09/04/17 09:30 - Constitutional Appears: Non-toxic, No Acute Distress - Eye Exam Eye Exam: Normal appearance - ENT Exam ENT Exam: Mucous Membranes Moist - Respiratory Exam Respiratory Exam: Clear to Ausculation Bilateral, NORMAL BREATHING PATTERN - Cardiovascular Exam Cardiovascular Exam: REGULAR RHYTHM, +S1, +S2 - GI/Abdominal Exam GI & Abdominal Exam: Soft, Normal Bowel Sounds - Extremities Exam Extremities Exam: Pedal Edema - Neurological Exam Neurological Exam: Alert, Awake Assessment and Plan - Assessment and Plan (Free Text) Assessment: 57yo male with PMHx of COPD on home o2, Afib on Xarelto, Chronic opiod use, admitted with hypercapnic/hypoxic resp failure, intubated. Currently afebrile, HD stable, comfortable in NAD, good oxygenation. COPD exacerbation Respiratory failure Chronic Hypoxia Anemia, stable Afib Recommend: - cont with ventilatory support, ABG acceptable, daily CPAP trials - Solumedrol 40mg IV q12hr - antibiotics as per ID - follow up cultures, procal - Sotalol - Lasix daily - Duonebs PRN - monitor HH, follow up GI, will discuss with GI about A/C - GI ppx, PPI - DVT ppx, HSQ - Monitor in MICU Critical care time 35 minutes
[2017-09-09 11:05] LABS: HEMOGLOBIN 9.7 g/dL (14.0-18.0); MEAN CELL VOLUME 88.1 fl (80.0-105.0); MEAN CORPUSCULAR HEMOGLOBIN 25.7 pg (25.0-35.0); MEAN CORPUSCULAR HGB CONC 29.1 g/dl (31.0-37.0); MEAN PLATELET VOLUME 9.5 fl (7.0-11.0); RBC 3.78 10^6/uL (3.5-6.1); RED CELL DISTRIBUTION WIDTH 17.8 % (11.5-14.5); WHITE BLOOD COUNT 5.9 10^3/ul (4.5-11.0)
--- NOTE | 2017-09-09 14:46 | PN ---
DATE: 09/09/2017 PULMONARY CRITICAL CARE PROGRESS NOTE REFERRING PHYSICIAN: Ross Bowman MD. SUBJECTIVE: He is intubated, fully awake and alert, mildly sedated. Family is at bedside. Not much ET tube secretion. No hemoptysis, no hematemesis, no hematuria, no diarrhea reported. PHYSICAL EXAMINATION: GENERAL: On ventilator. VITAL SIGNS: Temperature is 98, heart rate 75, respiratory rate is 20, blood pressure 100/55, pulse ox 100% on 65% oxygen on ventilator. HEENT: Moist mucous membranes. ET tube, no secretion. NECK: Supple. No JVD. LUNGS: Have crackles and rhonchi. HEART: S1 and S2. ABDOMEN: Soft, nontender. No organomegaly. EXTREMITIES: No edema. NEUROLOGICAL: Awake and follows simple commands. MEDICATIONS: He is on sotalol 120 mg twice a day, Daliresp 500 mcg daily. He is on IV Diprivan, fentanyl, heparin 5000 unit subcutaneous q. 8 hours, IV iron, also on meropenem 1 gm IV q. 8 hour, oxycodone immediate release 15 mg q. 4 hours p.r.n., Protonix 40 mg daily, artificial tears q. 8 hours, Singulair 10 mg daily, Solu-Medrol 40 mg q. 12 hours, Tylenol on p.r.n. basis, vancomycin 1 g IV q. 12 hours, Xanax 0.5 mg three times a day p.r.n., Xopenex inhaled q. 6 hours, and Zanaflex 4 mg three times a day. LABORATORY DATA: Reviewed. Blood gases this morning show pH 7.37, pCO2 of 58, O2 is 85, this is on 65% oxygen on ventilator. Sodium 141, potassium 4.3, chloride 97, bicarbonate 33, BUN 26, creatinine 0.4, glucose is 124. Calcium is 9.4. AST 19, ALT 50, alkaline phosphatase is 99. ProBNP 699. Albumin 3.1, procalcitonin is 0.07. Urine culture has Citrobacter. Today's chest x-ray is pending. IMPRESSION AND PLAN: Respiratory failure, on ventilator, known to have a chronic obstructive lung disease, some component of fibrosis, atelectasis. According to echocardiogram, moderately decreased left ventricular function with moderate pulmonary hypertension. Anemia; vertebral compression fracture; osteoporosis; atrial fibrillation, presently in sinus rhythm, on beta judith. So, with procalcitonin negative, most likely it is not a pneumonia. Does have a high proBNP?. Of course, there is cardiomyopathy continued into this respiratory failure and there is also chronic disease not helping us. So, I will continue steroids for now. We will suggest adding dobutamine 1.25 mcg per kg per minute. If tolerate well, may go up on 2.5 slowly. Of course, concern is sleeping and back to atrial fibrillation and tachycardiac. We will watch closely. Continue inhaled bronchodilators, gastric prophylaxis, deep venous thrombosis. I spoke to family at bedside. All the questions answered. I spoke to nursing staff. Critical care time more than 35 minutes. Thank you and we will follow with you. Shaila Mercado MD
--- NOTE | 2017-09-09 19:29 | PN ---
DATE: SUBJECTIVE: The patient is a 57-year-old, remains intubated on vent. PHYSICAL EXAMINATION VITAL SIGNS: The patient is afebrile, pulse 64, respirations 18, blood pressure 101/54. LUNGS: Diffusely decreased breath sounds. HEART: S1 and S2 audible. ABDOMEN: Soft, obese, nontender. No rebound, no guarding. NEUROLOGIC: The patient is sleepy but arousable, opens eyes on verbal commands. EXTREMITIES: Bilateral legs, no edema. LABORATORY DATA: WBC is 4.9, hemoglobin 9.7, hematocrit 33.3, platelets 205. Chemistry: Sodium 141, potassium 4.3, chloride 97, CO2 of 33, BUN 26, creatinine 0.4, blood sugar of 124. Flu test is negative. ASSESSMENT: 1. Respiratory failure. 2. Chronic obstructive pulmonary disease exacerbation. 3. Bronchospasm. 4. Narcotic dependence. 5. History of chronic atrial fibrillation status post ablation, now in sinus rhythm. 6. Nonischemic cardiomyopathy. 7. Moderate pulmonary hypertension. 8. Chronic anemia. 9. T9 vertebral compression fracture. PLAN: We will continue the patient on vent support for now. Blood pressure seems to be running low. He is on DVT prophylaxis. He is getting iron supplementation. He is on meropenem and IV steroid. Overall, prognosis is poor. We will continue current treatment and monitor his electrolyte and CBC. Ross Bowman MD
--- NOTE | 2017-09-09 20:11 | PN ---
DATE: SUBJECTIVE: The patient is in bed, not acute distress, was seen earlier this morning in room #129, Bed 5. Patient is intubated on the ventilator. PHYSICAL EXAMINATION VITAL SIGNS: On examination, temperature is 97, blood pressure is 78/40, respiratory rate on the ventilator, and heart rate of 64. HEENT: Unremarkable. NECK: Supple. LUNGS: Have decreased breath sounds. HEART: Normal S1 and S2. ABDOMEN: Soft. LABORATORY DATA: Reveals a white count of 5.9, hemoglobin of 9, platelets of 205, and chemistry reveals that the patient has a BUN of 26, creatinine of 0.4, and procalcitonin 0.07. Urinalysis is noted. Influenza is negative. Microbiology reveals Citrobacter freundii in the urine from 09/04/2017. It is a relatively sensitive organism. Blood cultures are no growth. . No MRSA is detected. REVIEW OF ORDERS: Reveals the patient to be on Dobutamine, meropenem, Solu-Medrol, and IV vancomycin. ASSESSMENT AND PLAN: This is a 57-year-old male with systemic inflammatory response syndrome - consider severe sepsis, ventilator-dependent respiratory failure with bilateral lower lobe healthcare-associated pneumonia with possible small-bowel obstruction with a normal procalcitonin - on vancomycin and meropenem. Cultures are negative thus far. Patient's chest x-ray from this morning - no active pulmonary disease, bacteruria. Jorge A's note from this morning is reviewed. We will follow closely with you. Merrill Martinez MD
--- NOTE | 2017-09-10 01:29 | PN ---
DATE:09/09/2017 SUBJECTIVE: This patient is on vent now. PHYSICAL EXAMINATION: VITAL SIGNS: He is afebrile. pulse 81, blood pressure is 123/68, O2 saturation 99%.09/09/2011 HEENT: Atraumatic, anicteric. NECK: Supple. HEART: S1 and S2 heard. LUNGS: Bilateral air entry present, slightly reduced in the base. EXTREMITIES: Bilateral edema present. NEUROLOGIC: Alert, on vent. LABORATORY DATA: Hemoglobin stable at 9.7, hematocrit 33.3, WBC count come down to 5.9, platelets 205. Chemistry, LFTs normal. BUN 26, creatinine 0.4. IMPRESSION AND PLAN: This 57-year-old patient with chronic obstructive pulmonary disease, paroxysmal atrial fibrillation, status post ablation in the past, cardiomyopathy, admitted with the shortness of breath. Patient also gave history of some bright red blood per rectum before. Patient, for few days, was admitted with severe anemia. The hemoglobin was 7.2, status post transfusion of 2 units. Now, the hemoglobin has been stable. Patient was to be reintubated for the shortness of breath. Patient is on dobutamine drip ,chronic obstructive pulmonary disease, on steroid. Hemoglobin remained stable. Patient did have complaints of right upper quadrant discomfort, had a CT that showed no perforation. Patient is due to have an upper GI endoscopy, which is deferred in view of the respiratory status, would recommend one. Continue to closely follow up the hemoglobin and hematocrit. Continue the PPI. Consider EGD when is optimized. Thank you very much for allowing me to participate in the care of the patient. Felicia Bansal MD LEANDRA
[2017-09-10] MEDS: Levalbuterol 1.25 MG/3 ML Inhal Soln UD IH SCH ×4 (02:06→19:27)
[2017-09-10] MEDS: Propofol 10 mg/ml 1,000 MG/100 ML VIAL IV PRN ×2 (02:30→06:15)
[2017-09-10] MEDS: Fentanyl 1000mcg/100ml NS 1,000 MCG/100 ML BAG IV PRN ×2 (03:19→07:26)
[2017-09-10 05:04] LABS: ARTERIAL BLOOD GAS HCO3 33.3 mmol/L (21-28); ARTERIAL BLOOD GAS O2 CAPACITY 12.6 mL/dl (16-24); ARTERIAL BLOOD GAS O2 CONTENT 12.4 ML/dl (15-23); ARTERIAL BLOOD GAS O2 SAT 98.2 % (95-98); ARTERIAL BLOOD GAS PCO2 55 mm/Hg (35-45); ARTERIAL BLOOD GAS PH 7.39 (7.35-7.45)
[2017-09-10] MEDS: Meropenem 1g/NS 100mL IVPB 1 GM/100 ML PIGGYBACK IVPB SCH ×3 (05:11→21:17)
[2017-09-10 05:50] LABS: HEMOGLOBIN 9.4 g/dL (14.0-18.0); MEAN CORPUSCULAR HEMOGLOBIN 25.9 pg (25.0-35.0); MEAN CORPUSCULAR HGB CONC 29.1 g/dl (31.0-37.0); MEAN PLATELET VOLUME 9.4 fl (7.0-11.0); RBC 3.63 10^6/uL (3.5-6.1); RED CELL DISTRIBUTION WIDTH 17.6 % (11.5-14.5); WHITE BLOOD COUNT 6.4 10^3/ul (4.5-11.0)
[2017-09-10 05:59] LABS: ALB/GLOB RATIO 1.2 (1.1-1.8); ALT/SGPT 39 U/L (7-56); AST/SGOT 28 U/L (17-59); BLOOD UREA NITROGEN 24 mg/dL (7-21); CALCIUM 9.4 mg/dL (8.4-10.5); GFR AFRICAN-AMERICAN > 60; GFR NON-AFRICAN AMERICAN > 60
--- NOTE | 2017-09-10 09:14 | CP.PCM.PN ---
Subjective - Date & Time of Evaluation Date of Evaluation: 09/10/17 Time of Evaluation: 07:20 - Subjective Subjective: Pt seen and examined, reports no major complaints, awake, alert, in NAD, placed on CPAP. Objective - Vital Signs/Intake and Output Vital Signs (last 24 hours): Temp Pulse Resp BP Pulse Ox 97.7 F 83 19 110/63 88 L 09/09/17 16:00 09/10/17 09:01 09/08/17 15:22 09/10/17 09:01 09/10/17 09:01 Intake and Output: 09/10/17 09/10/17 06:59 18:59 Intake Total 1565 100 Output Total 100 Balance 1465 100 - Medications Medications: Current Medications Acetaminophen (Tylenol 325mg Tab) 650 mg PO Q6H PRN PRN Reason: Pain, moderate (4-7) Last Admin: 09/02/17 22:10 Dose: 650 mg Alprazolam (Xanax) 0.5 mg PO TID PRN; Protocol PRN Reason: Anxiety Last Admin: 09/08/17 00:26 Dose: 0.5 mg Artificial Tears (Refresh Opth Soln) 0.3 ml OU Q8H PRN PRN Reason: Dry eyes Heparin Sodium (Porcine) (Heparin) 5,000 units SC Q8 ERNESTINA PRN Reason: Protocol Last Admin: 09/10/17 05:11 Dose: 5,000 units Iron Sucrose 100 mg/ Sodium (Chloride) 105 mls @ 210 mls/hr IV DAILY ERNESTINA Stop: 09/10/17 15:16 Last Admin: 09/09/17 09:52 Dose: 210 mls/hr Vancomycin HCl (Vancomycin 1gm) 1 gm in 250 mls @ 167 mls/hr IVPB Q12H ERNESTINA PRN Reason: Protocol Last Admin: 09/09/17 21:48 Dose: 167 mls/hr Meropenem/Sodium Chloride (Meropenem 1g/Ns 100ml Ivpb) 1 gm in 100 mls @ 100 mls/hr IVPB Q8 ERNESTINA PRN Reason: Protocol Last Admin: 09/10/17 05:11 Dose: 100 mls/hr Propofol (Diprivan) 1,000 mg in 100 mls @ 2.164 mls/hr IV .Q24H PRN; Protocol; 5 MCG/KG/MIN PRN Reason: TITRATE PER MD ORDER Last Admin: 09/10/17 06:15 Dose: 40 mcg/kg/min, 17.309 mls/hr Fentanyl Citrate (Fentanyl Citrate/Sodium Chloride 1 Mg/100 Ml) 1,000 mcg in 100 mls @ 7.5 mls/hr IV .[id number] PRN; Protocol; 75 MCG/HR PRN Reason: TITRATE PER MD ORDER Last Admin: 09/10/17 07:26 Dose: 220 mcg/hr, 22 mls/hr Levalbuterol HCl (Xopenex) 1.25 mg IH [id number] [facility] Last Admin: 09/10/17 08:19 Dose: 1.25 mg Methylprednisolone (Solu-Medrol) 40 mg IVP Q12 [facility] Last Admin: 09/09/17 21:31 Dose: 40 mg Montelukast Sodium (Singulair) 10 mg PO HS [facility] Last Admin: 09/09/17 21:33 Dose: 10 mg Oxycodone HCl (Oxycodone Immediate Release Tab) 15 mg PO Q4H PRN PRN Reason: Pain, severe (8-10) Last Admin: 09/08/17 06:18 Dose: 15 mg Pantoprazole Sodium (Protonix Inj) 40 mg IVP Q12 [facility] Last Admin: 09/09/17 21:31 Dose: 40 mg Roflumilast (Daliresp) 500 mcg PO DAILY [facility] Last Admin: 09/09/17 09:59 Dose: 500 mcg Sotalol HCl (Betapace) 120 mg PO BID [facility] Last Admin: 09/09/17 17:26 Dose: Not Given Tizanidine HCl (Zanaflex) 4 mg PO TID [facility] Last Admin: 09/09/17 17:30 Dose: 4 mg - Labs Labs: 09/10/17 05:00 09/10/17 05:00 PT 11.4 SECONDS (9.4-12.5) 09/04/17 09:30 INR 0.99 (0.93-1.08) 09/04/17 09:30 APTT 21.6 Seconds (25.1-36.5) L 09/04/17 09:30 - Constitutional Appears: Non-toxic, No Acute Distress - Eye Exam Eye Exam: Normal appearance - ENT Exam ENT Exam: Mucous Membranes Moist - Respiratory Exam Respiratory Exam: Clear to Ausculation Bilateral, NORMAL BREATHING PATTERN - Cardiovascular Exam Cardiovascular Exam: REGULAR RHYTHM, +S1, +S2 - GI/Abdominal Exam GI & Abdominal Exam: Soft, Normal Bowel Sounds - Extremities Exam Extremities Exam: Pedal Edema - Neurological Exam Neurological Exam: Alert, Awake - Psychiatric Exam Psychiatric exam: Normal Affect Assessment and Plan - Assessment and Plan (Free Text) Assessment: 57yo male with PMHx of COPD on home o2, Afib on Xarelto, Chronic opiod use, admitted with hypercapnic/hypoxic resp failure, intubated. Currently afebrile, HD stable, comfortable in NAD, good oxygenation. Placed on CPAP trial, doing well, possible extubation today. COPD exacerbation Respiratory failure Chronic Hypoxia Anemia, stable Afib Recommend: - cont with ventilatory support, ABG acceptable, daily CPAP trials, possible extubation today - Solumedrol 40mg IV q12hr - antibiotics as per ID - follow up cultures - Sotalol - Lasix daily - DC Dobutamine, (tachycardia) - Duonebs PRN - monitor HH, follow up GI, will discuss with GI about A/C - EGD when optimized as per GI - GI ppx, PPI - DVT ppx, HSQ - Monitor in MICU
[2017-09-10] MEDS: MethylPREDNISolone 40 mg Vial IVP SCH ×2 (09:51→21:17)
[2017-09-10] MEDS: Vancomycin 1gm in NS 250ml 1 GM/250 ML BAG IVPB SCH ×2 (09:51→22:14)
--- NOTE | 2017-09-10 10:51 | RAD ---
HISTORY: intubated COMPARISON: September 09, 2017. Single-view chest 09/08/2017 CT thorax FINDINGS: LUNGS: Go atelectasis at the lung bases. Stable PLEURA: No significant pleural effusion identified, no pneumothorax apparent. CARDIOVASCULAR: No radiographic findings to suggest acute or significant cardiovascular disease. PICC line tip at the level of the right axillary vein unchanged. OSSEOUS STRUCTURES: No significant abnormalities. VISUALIZED UPPER ABDOMEN: Unremarkable OTHER FINDINGS: Stable position of endotracheal tube and nasogastric tube. IMPRESSION: No significant interval change compared to the prior examination(s). Stable position of support apparatus.
[2017-09-10] MEDS: oxyCODONE 15 mg Immediate Release Tab PO PRN ×3 (12:52→21:16)
--- NOTE | 2017-09-10 16:49 | PN ---
DATE: 09/10/2017 REASON FOR CONSULTATION: Nonischemic cardiomyopathy, paroxysmal atrial fibrillation, status post radiofrequency ablation, rectal bleed, respiratory failure, intubated, AFib now converted to normal sinus. SUBJECTIVE: The patient remains on vent. OBJECTIVE: GENERAL: Not in apparent distress. VITAL SIGNS: Temperature afebrile, heart rate 88, blood pressure 131/69. HEENT: PERRLA, intact. NECK: Supple. No carotid bruit or thyromegaly. CHEST: Clear to auscultation. HEART: S1 and S2, regular. ABDOMEN: Soft. EXTREMITIES: Clubbing and cyanosis negative. LABORATORY DATA: Blood workup as follows: WBC 6.5, hemoglobin 9.4, hematocrit 32.3, platelet count 297. Chemistry shows sodium 141, potassium 4.5, chloride 98, carbon dioxide is 36, anion gap of 12. BUN 24, creatinine 0.5. IMPRESSION: Status post respiratory failure, bronchospasm, rectal bleed, narcotic dependence, paroxysmal atrial fibrillation, status post radiofrequency ablation. Also the patient has two episodes of atrial fibrillation, narcotic dependence, lower thoracic vertebral fracture, back pain, moderate pulmonary hypertension, and nonischemic cardiomyopathy status post cardiac catheterization, no significant coronary artery disease. Repeat echocardiogram on 09/08/2017, shows left ventricular systolic function borderline, RV systolic function reduced, mild tricuspid regurgitation, [id number] pulmonary hypertension. RECOMMENDATIONS: Continue vent management. Continue gentle diuresis. Not on anticoagulation because patient has a recent GI bleed. Continue beta-judith. We will follow with you. Thank you Dr. Bowman for providing us the opportunity in taking care of the patient, Demetrio Cano. Shaila Samuel MD
--- NOTE | 2017-09-10 17:33 | PN ---
DATE: 09/10/2017 SUBJECTIVE: The patient is in bed, in no acute distress, nontoxic, was seen earlier today in the CCU 129, bed 5. OBJECTIVE: VITAL SIGNS: Temperature is 97; blood pressure is 130/60; respiratory rate, the patient is on the vent; and heart rate of 83. HEENT: Unremarkable. NECK: Supple. LUNGS: Decreased breath sounds. HEART: Normal S1, S2. ABDOMEN: Soft, nontender. LABORATORY EXAMINATION: Reveals the patient's white count of 6.4, hemoglobin of 9, platelets of 297. BUN of 24, creatinine of 0.5. Procalcitonin from 0.07. Urinalysis is noted and influenza is negative. The patient did have an HIV test in January, which was negative also. The patient had a chest x-ray this morning, which was read by Dr. Thomas Green, which is reported as no significant change. ASSESSMENT/PLAN: This is a 57-year-old male with systemic inflammatory response syndrome, severe sepsis, ventilator-dependent respiratory failure, bilateral lower healthcare associated pneumonia, possible small bowel obstruction, normal procalcitonin vancomycin, meropenem. Cultures thus far are no growth at 24 hours. Urine culture does have Citrobacter freundii, with wbc's in the urine now 20 to 25, many bacteria. Continue the present course and make adjustments within the next 24 hours. The patient currently on meropenem and vancomycin. Merrill Martinez MD
[2017-09-11] MEDS: oxyCODONE 15 mg Immediate Release Tab PO PRN ×5 (00:35→23:36)
--- NOTE | 2017-09-11 00:44 | PN ---
DATE: SUBJECTIVE: Patient is awake, able to communicate with his hands. He does have an ET tube in place. He denies any pain. PHYSICAL EXAMINATION: VITAL SIGNS: Temperature is 98, pulse of 62, blood pressure of 120/59, and respiration is 13. GENERAL: The patient is lying in bed, flat, comfortable. HEENT: No oral lesion. Anicteric sclerae. Moist mucosa. Positive for ET tube. NECK: No JVD, adenopathy, or thyromegaly. CARDIOVASCULAR: S1 and S2, regular. No murmurs, rubs, or gallops. LUNGS: Clear to auscultation bilaterally. No wheeze, rales, or rhonchi. ABDOMEN: Bowel sounds are positive, soft, nontender and nondistended. EXTREMITIES: no cyanosis, clubbing or edema. 1. Resp failure 2. Nonischemic Cardiomyopathy 3. Pulmonary HTN 4. Chronic anemia 5. T9 Vertebral fracture He is on antibiotic, vancomycin. He is getting Xopenex for his breathing treatments. His blood work showed a white count as normal.Continue with ventilator. Labs reviewed Continue in ICU. Johnathon Willoughby MD MTDRoberto
[2017-09-11] MEDS: Levalbuterol 1.25 MG/3 ML Inhal Soln UD IH SCH ×4 (02:31→19:40)
--- NOTE | 2017-09-11 03:57 | PN ---
DATE: 09/10/2017 PULMONARY CRITICAL CARE PROGRESS NOTE REFERRING PHYSICIAN: Ross Bowman MD SUBJECTIVE: He is lying in the bed, head at degrees. He is on high flow oxygen and extubated. Night was unremarkable. More awake and alert. Still short of breath and cough. No vomiting. No hematuria. No diarrhea. No leg swelling reported. OBJECTIVE: GENERAL: In no acute distress. 7ITAL SIGNS: Temperature is 98, heart rate is 62, respiratory rate is 18-20, blood pressure 120/59, pulse ox 97% on high flow nasal cannula. HEENT: Moist mucous membranes. Crowded airway. Mallampati score is IV. NECK: Supple, no JVD .LUNGS: Poor air flow with scattered rhonchi and crackles. HEART: S1, S2. ABDOMEN: Soft, nontender. No organomegaly. EXTREMITIES: No edema. NEUROLOGIC: Awake, alert. Follows simple commands. MEDICATIONS: He is on sotalol 120 mg twice a day, Daliresp 500 mcg daily, Diprivan want to discontinue, fentanyl is discontinued, heparin 5000 unit subcutaneous q. 8 hours, meropenem 1 gm IV q. 8 hour, oxycodone immediate release q. 4 hours p.r.n., Protonix 40 mg q. 12 hours, artificial tears q. 8 hours p.r.n., Singulair 10 mg at bedtime, Solu-Medrol 40 mg q. 12 hours, Tylenol p.r.n., vancomycin 1 g IV q. 12 hours, Xanax 0.5 mg three times a day p.r.n., Xopenex inhaled q. 6 hours, Zanaflex 4 mg three times a day, was discontinued after 12 hours because of tachycardia. LABORATORY DATA: Shows hemoglobin 9.4, hematocrit 32.3, WBC 6.4, platelet is 297. Blood gas this morning showed pH 7.39, PCO2 55, O2 is 115, this is on 65% oxygen, sodium 141, potassium 4.5, chloride 98, bicarbonate 36, BUN 24, creatinine 0.5. Glucose 124. Calcium is 9.4. AST 20, ALT 39. Alkaline phosphatase 87. Albumin is 3.0. Procalcitonin was 0.07. Chest x-ray done this morning shows atelectasis in the lung bases, otherwise unremarkable. IMPRESSION AND PLAN: Respiratory failure, being on ventilator, liberated on high flow nasal cannula, chronic obstructive lung disease, that may be component of atelectasis and fibrosis. Cardiomyopathy with moderately decreased left ventricular function, pulmonary hypertension, anemia; vertebral compression fracture; osteoporosis; atrial fibrillation. Case discussed with the nursing staff. Continue IV and inhaled bronchodilator antibiotics, keep head 45 degrees, continue high flow oxygen, diuretics, may need pulmonary vasodilator. Gastric prophylaxis. Deep venous thrombosis. Aspiration precaution. Follow labs in the morning. Critical care time more than 35 minutes. Thank you and we will follow with you Shaila Mercado MD
--- NOTE | 2017-09-11 04:03 | PN ---
DATE: SUBJECTIVE: The patient was seen and evaluated today. The patient is off the ventilator and is in high flow oxygen. PHYSICAL EXAMINATION: VITAL SIGNS: Temperature 98, blood pressure 120/59, respirations 18, O2 saturation 97%, and is in high flow oxygen. HEENT: Atraumatic, anicteric. NECK: Supple. HEART: S1 and S2 heard. LUNGS: Bilateral air entry present. EXTREMITIES: No cyanosis, no clubbing. NEUROLOGICAL: Alert, oriented, moves all the extremities. LABORATORY DATA: Hemoglobin 9.4, hematocrit 32.3, WBC 6.4, platelets 297. LFTs normal. ASSESSMENT: This is a 57-year-old patient with chronic obstructive pulmonary disease, paroxysmal atrial fibrillation, status post ablation in the past, cardiomyopathy, admitted with shortness of breath and the patient also gave history of bright red blood per rectum. The patient's hemoglobin on admission was 7.2, status post 2 units of packed red blood cells, the patient's hemoglobin has been stable. The patient was intubated, extubated today, on dobutamine drip. Continue the patient on heparin 5000 units q. 8 hourly, on Protonix 40 mg daily. The patient is also on steroid. Needed close followup with the hemoglobin and hematocrit. The patient did complain of pain in the right upper quadrant area. The patient has CT scan done showed no perforation and no free air. The plan is to continue the PPI and close followup of the hemoglobin and hematocrit, and consider upper endoscopic evaluation once the patient's cardiorespiratory status is optimized. I would consider emergency endoscopic evaluation if the patient develops an active bleeding; however, it carries a higher risk in view of this cardiorespiratory status presently. Thank you very much for allowing me to participate in the care of the patient. Felicia Bansal MD
[2017-09-11] MEDS: Meropenem 1g/NS 100mL IVPB 1 GM/100 ML PIGGYBACK IVPB SCH ×3 (05:11→23:13)
[2017-09-11 05:47] LABS: ARTERIAL BLOOD GAS HCO3 35.9 mmol/L (21-28); ARTERIAL BLOOD GAS HEMOGLOBIN 10.4 g/dL (11.7-17.4); ARTERIAL BLOOD GAS O2 CAPACITY 14.3 mL/dl (16-24); ARTERIAL BLOOD GAS O2 CONTENT 13.4 ML/dl (15-23); ARTERIAL BLOOD GAS O2 SAT 93.9 % (95-98); ARTERIAL BLOOD GAS PCO2 45 mm/Hg (35-45); ARTERIAL BLOOD GAS PH 7.51 (7.35-7.45); ARTERIAL BLOOD GAS TCO2 37.3 mmol.L (22-28)
[2017-09-11 07:21] LABS: HEMOGLOBIN 10.9 g/dL (14.0-18.0); MEAN CELL VOLUME 87.1 fl (80.0-105.0); MEAN CORPUSCULAR HGB CONC 29.9 g/dl (31.0-37.0); MEAN PLATELET VOLUME 9.8 fl (7.0-11.0); RBC 4.19 10^6/uL (3.5-6.1); WHITE BLOOD COUNT 6.6 10^3/ul (4.5-11.0)
[2017-09-11 07:39] LABS: ALB/GLOB RATIO 1.2 (1.1-1.8); ALBUMIN 3.3 g/dL (3.0-4.8); ALT/SGPT 37 U/L (7-56); AST/SGOT 39 U/L (17-59); BLOOD UREA NITROGEN 17 mg/dL (7-21); CALCIUM 9.4 mg/dL (8.4-10.5); GFR AFRICAN-AMERICAN > 60; GFR NON-AFRICAN AMERICAN > 60
--- NOTE | 2017-09-11 08:34 | RAD ---
HISTORY: intubated COMPARISON: 09/10/2017. FINDINGS: Interval extubation. The nasogastric tube has been removed. The right PICC line terminates in the right axillary vein. LUNGS: The lungs are well inflated. There is interval improved aeration in the right lower lobe. There is probable atelectasis in the left lung base. PLEURA: No significant pleural effusion identified, no pneumothorax apparent. CARDIOVASCULAR: Normal. OSSEOUS STRUCTURES: No significant abnormalities. VISUALIZED UPPER ABDOMEN: Normal. OTHER FINDINGS: None. IMPRESSION: Status post extubation No active pulmonary disease.
--- NOTE | 2017-09-11 08:42 | CON ---
DATE: 09/09/2017 HISTORY OF PRESENT ILLNESS: The patient is a 57-year-old white male with multiple admissions for respiratory distress secondary to COPD. The patient has a history of anxiety related to his medical condition, and Psychiatry followed up with him on 08/17/2017 for anxiety and was signed off as it was related to medical issues. The patient was also followed by Dr. Lee on 09/07/2017 for anxiety and narcotic dependence. I reviewed both of these notes as well as recent notes on the unit, met with the patient at bedside. Apparently, the patient went into respiratory distress yesterday and required intubation and sedation. I met with him at bedside and that he is alert, focus is fair, and he remains oriented, however, interview has been conducted by yes or no questions or by patient responding or questioning or expressing himself by writing it in my notebook. His responses are consistent with the nursing report. He denies having any pain at this time, and he requested that we remove his restraints which was done after I left between the hour of 8 a.m. and 9 a.m. He appears to be in fairly good control during my interview. He is not suicidal. He is not hallucinating. He is aware of current situation and regarding his mental health issues, he does not appear to be super enthusiastic about discussing or focusing on them at this time in consideration of his current status. It is unclear if he wants psychiatry to follow up at a later time when his medical condition improves. Regardless, he is consistent with his responses and does not pretend, and he has never pretended to be in acute danger to himself. He does not appear to be hallucinating and major issue is that there still appears to be anxiety. Presents with fair insight and judgment. PHYSICAL EXAMINATION VITAL SIGNS: Vital signs were reviewed. LABORATORY DATA: The patient's recent laboratory work was also reviewed by this provider from this morning. Relevant medications include Xanax 0.5 mg p.o. four times daily of which the patient did not receive any doses yesterday and only received one dose around 12:26 a.m. yesterday. He only received two doses on 09/07/2017. The patient of note is also on oxycodone 50 mg q.4 hours. p.r.n., and he only received about two doses yesterday, no doses this morning, and only two doses on 09/07/2017, and the patient is also getting an infusion of Fentanyl daily. IMPRESSION: Anxiety secondary to general medical condition, and this anxiety appears to be appropriate considering his current condition that requires intubation due to his respiratory distress. RECOMMENDATIONS: As much as possible, we would minimize Xanax use, and I will decrease his p.r.n. use as the patient has very tenuous respiratory condition, and he also has not required too much of the medication while in the ICU. The patient's medical team should adjust narcotics as tolerated and taper him from his opioids. Of note, the patient is comfortable at this time, so there is some leeway for medical team to follow up on this recommendation though I am sure medical team is aware of opiates effects on breathing, but it should be noted that he told both this provider and the nursing that his pain management is under control and further taper should be considered. At this time, Psychiatry will follow up with the patient every two days to monitor his progress. This patient's medical issues are his predominant focus at this time. Please request an earlier consult if there are any acute changes in his presentation. Sandy Juárez MD
[2017-09-11] MEDS: MethylPREDNISolone 40 mg Vial IVP SCH ×2 (11:10→23:19)
[2017-09-11] MEDS: Vancomycin 1gm in NS 250ml 1 GM/250 ML BAG IVPB SCH ×2 (11:11→23:20)
--- NOTE | 2017-09-11 11:49 | PCM.PYCHPN ---
Psychiatric Progress Note - Psychiatric Progress Note Patient seen today, length of contact: 25 Patient Chief Complaint: T fatigue Patient is weak. Is asking to be put [facility]. Will discuss with Dr. nick Problems Identified/Issues Discussed: general health and possibilng put on mmethadone. Patient informs that he he had bad reaction to buprenorhine in the past Medication Change: No Medical Record Reviewed: Yes Consults ordered or reviewed: discussed wit dr nick
[2017-09-11 12:11] LABS: ALBUMIN (PEP) 3.2 g/dL (3.8-4.8); ALPHA-1-GLOBULIN (PEP) 0.5 g/dL (0.2-0.3)
--- NOTE | 2017-09-11 13:05 | CP.CCUPN ---
<Mike Srivastava - Last Filed: 09/11/17 13:15> CCU Subjective - Physician Review Subjective (Free Text): Mike Srivastava PGY1 ICU Note for Dr. Jules Patient was seen and examined at bedside in ICU. Patient is breathing comfortably on high flow O2 and denies any shortness of breath or any chest pain , fever/chills. Patient was extubated yesterday and has been saturating well and had no respiratory distress since then. Patient complaining of some facial numbness, but no focal deficits noted. CCU Objective - Vital Signs / Intake & Output Vital Signs (Last 4 hours): Vital Signs Pulse BP 09/11/17 11:09 119 H 132/77 Intake and Output (Last 8hrs): Intake & Output 09/10/17 09/11/17 09/11/17 22:59 06:59 14:59 Intake Total 954 634 Output Total 850 1400 Balance 104 -766 Weight 164 lb 8 oz Intake: IV 504 514 abx 450 460 diprivan 27 27 fentanyl 27 27 Oral 450 120 Output: Urine 850 1400 Urethral (Live) 850 1400 Other: # Bowel Movements 0 0 - Physical Exam Head: Positive for: Atraumatic, Normocephalic, Other (mild bi-temporal wasting) Pupils: Positive for: PERRL, Other (no nystagmus, no photophobia, sclera anicteric; visual field intact b/l) Extroacular Muscles: Positive for: EOMI Conjunctiva: Positive for: Normal Ears: Positive for: Normal Mouth: Positive for: Dry, Other (fair dentitions, dry oral mucosa; no drooling/ stridor, no exudate/lesions) Pharnyx: Positive for: Normal Nose (External): Positive for: Atraumatic Nose (Internal): Positive for: Normal Inspection Neck: Positive for: Normal Range of Motion. Negative for: MIDLINE TENDERNESS Respiratory/Chest: Positive for: Clear to Auscultation, Other (on high flow O2 ) . Negative for: Accessory Muscle Use, Wheezes, Rhonchi, Tachypneic Cardiovascular: Positive for: Regular Rate and Rhythm, Normal S1, S2. Negative for: Murmurs Abdomen: Positive for: Normal Bowel Sounds, Other (well nourished male, no focal tenderness, no masses/rebound/guarding/rigidity). Negative for: Tenderness, Distention, Peritoneal Signs Back: Positive for: Normal Inspection. Negative for: Midline Tenderness Upper Extremity: Positive for: Normal Inspection, Normal ROM, NORMAL PULSES, Neurovascularly Intact, Capillary Refill < 2s. Negative for: Cyanosis, Edema Lower Extremity: Positive for: Normal Inspection, NORMAL PULSES, Neurovascularly Intact. Negative for: Edema Neurological: Positive for: GCS=15, CN II-XII Intact, Speech Normal Skin: Positive for: Warm, Dry. Negative for: Rashes Psychiatric: Positive for: Alert, Oriented x 3, Normal Insight, Normal Concentration - Medications Active Medications: Active Medications Generic Name Dose Route Start Last Admin Trade Name Freq PRN Reason Stop Dose Admin Acetaminophen 650 mg 09/02/17 21:43 09/02/17 22:10 Tylenol 325mg Tab PO 650 mg Q6H PRN Administration Pain, moderate (4-7) Alprazolam 0.5 mg 09/06/17 10:00 09/11/17 09:26 Xanax PO 0.5 mg TID PRN Administration Anxiety Protocol Artificial Tears 0.3 ml 09/06/17 18:03 Refresh Opth Soln OU Q8H PRN Dry eyes Furosemide 10 mg 09/10/17 22:00 09/11/17 05:10 Lasix IVP 10 mg Q8 ERNESTINA Administration Heparin Sodium (Porcine) 5,000 units 09/08/17 14:00 09/11/17 05:08 Heparin SC 5,000 units Q8 ERNESTINA Administration Protocol Vancomycin HCl 1 gm in 250 mls @ 167 mls/hr 09/08/17 10:45 09/11/17 11:11 Vancomycin 1gm IVPB 167 mls/hr Q12H ERNESTINA Administration Protocol Meropenem/Sodium Chloride 1 gm in 100 mls @ 100 mls/hr 09/08/17 14:00 05:11 Meropenem 1g/Ns 100ml Ivpb IVPB 100 mls/hr Q8 ERNESTINA Administration Protocol Fentanyl Citrate 1,000 mcg in 100 mls @ 7.5 mls/hr 09/08/17 12:18 09/10/17 09 :25 Fentanyl Citrate/Sodium Chloride 1 Mg/100 Ml IV 0 mcg/hr .[id number] PRN 0 mls/hr TITRATE PER MD ORDER Titration Protocol 75 MCG/HR Levalbuterol HCl 1.25 mg 09/02/17 20:00 09/11/17 08:36 Xopenex IH 1.25 mg [id number] ERNESTINA Administration Methylprednisolone 40 mg 09/05/17 22:00 09/11/17 11:10 Solu-Medrol IVP 40 mg Q12 ERNESTINA Administration Montelukast Sodium 10 mg 09/02/17 22:00 09/10/17 21:16 Singulair PO 10 mg HS ERNESTINA Administration Oxycodone HCl 15 mg 09/04/17 10:21 09/11/17 11:10 Oxycodone Immediate Release Tab PO 15 mg Q4H PRN Administration Pain, severe (8-10) Pantoprazole Sodium 40 mg 09/04/17 10:00 09/11/17 11:10 Protonix Inj IVP 40 mg Q12 ERNESTINA Administration Roflumilast 500 mcg 09/02/17 12:15 09/11/17 11:10 Daliresp PO 500 mcg DAILY ERNESTINA Administration Sotalol HCl 120 mg 09/02/17 18:00 09/11/17 11:09 Betapace PO 120 mg BID ERNESTINA Administration Tizanidine HCl 4 mg 09/02/17 14:00 09/11/17 11:09 Zanaflex PO 4 mg TID ERNESTINA Administration - Patient Studies Lab Studies: Microbiology Studies 09/08/17 11:00 Blood Culture - Preliminary Blood NO GROWTH AFTER 3 DAYS 09/08/17 10:30 Blood Culture - Preliminary Blood NO GROWTH AFTER 3 DAYS 09/08/17 18:31 Urine Culture - Final Urine,Catheterized No Growth (<1,000 CFU/ML) Lab Studies 09/11/17 09/11/17 09/11/17 Range/Units 05:30 05:30 05:30 WBC 6.6 (4.5-11.0) 10^3/ul RBC 4.19 (3.5-6.1) 10^6/uL Hgb 10.9 L (14.0-18.0) g/dL Hct 36.5 L (42.0-52.0) % MCV 87.1 (80.0-105.0) fl MCH 26.0 (25.0-35.0) pg MCHC 29.9 L (31.0-37.0) g/dl RDW 18.0 H (11.5-14.5) % Plt Count 356 (120.0-450.0) 10^3/uL MPV 9.8 (7.0-11.0) fl pCO2 45 (35-45) mm/Hg pO2 57.0 L (80-100) mm/Hg HCO3 35.9 H (21-28) mmol/L ABG pH 7.51 H (7.35-7.45) ABG Total CO2 37.3 H (22-28) mmol.L ABG O2 Saturation 93.9 L (95-98) % ABG O2 Content 13.4 L (15-23) ML/dl ABG Base Excess 11.6 H (-2.0-3.0) mmol/L ABG Hemoglobin 10.4 L (11.7-17.4) g/dL ABG Carboxyhemoglobin 2.0 H (0.5-1.5) % POC ABG HHb (Measured) 5.9 H (0-5) % ABG Methemoglobin 0.9 (0.0-3.0) % ABG O2 Capacity 14.3 L (16-24) mL/dl Hgb O2 Saturation 91.3 L (95.0-98.0) % FiO2 50.0 % Sodium 142 (132-148) mmol/L Potassium 3.5 L (3.6-5.0) mmol/L Chloride 95 L (98-107) mmol/L Carbon Dioxide 37 H (21-33) mmol/L Anion Gap 13 (10-20) BUN 17 (7-21) mg/dL Creatinine 0.5 L (0.8-1.5) mg/dl Est GFR ( Amer) > 60 Est GFR (Non-Af Amer) > 60 Random Glucose 100 (70-110) mg/dL Calcium 9.4 (8.4-10.5) mg/dL Total Bilirubin 0.6 (0.2-1.3) mg/dL AST 39 (17-59) U/L ALT 37 (7-56) U/L Alkaline Phosphatase 100 (38-126) U/L Total Protein 6.0 (5.8-8.3) g/dL Albumin 3.3 (3.0-4.8) g/dL Albumin (PEP) (3.8-4.8) g/dL Globulin 2.7 gm/dL Albumin/Globulin Ratio 1.2 (1.1-1.8) Xddon-4-Btxazwbjz (0.2-0.3) g/dL Narqu-1-Mszhdaadx (0.5-0.9) g/dL Sxan-0-Ixljibsk (0.4-0.6) g/dL Nnlj-5-Ihugrmzj (0.2-0.5) g/dL Gamma Globulins (0.8-1.7) g/dL Abnorm Protein Band 1 Abnorm Protein Band 2 Abnorm Protein Band 3 MARIA ANTONIA & SPEP Interp 09/06/17 Range/Units 05:30 WBC (4.5-11.0) 10^3/ul RBC (3.5-6.1) 10^6/uL Hgb (14.0-18.0) g/dL Hct (42.0-52.0) % MCV (80.0-105.0) fl MCH (25.0-35.0) pg MCHC (31.0-37.0) g/dl RDW (11.5-14.5) % Plt Count (120.0-450.0) 10^3/uL MPV (7.0-11.0) fl pCO2 (35-45) mm/Hg pO2 (80-100) mm/Hg HCO3 (21-28) mmol/L ABG pH (7.35-7.45) ABG Total CO2 (22-28) mmol.L ABG O2 Saturation (95-98) % ABG O2 Content (15-23) ML/dl ABG Base Excess (-2.0-3.0) mmol/L ABG Hemoglobin (11.7-17.4) g/dL ABG Carboxyhemoglobin (0.5-1.5) % POC ABG HHb (Measured) (0-5) % ABG Methemoglobin (0.0-3.0) % ABG O2 Capacity (16-24) mL/dl Hgb O2 Saturation (95.0-98.0) % FiO2 % Sodium (132-148) mmol/L Potassium (3.6-5.0) mmol/L Chloride (98-107) mmol/L Carbon Dioxide (21-33) mmol/L Anion Gap (10-20) BUN (7-21) mg/dL Creatinine (0.8-1.5) mg/dl Est GFR ( Amer) Est GFR (Non-Af Amer) Random Glucose (70-110) mg/dL Calcium (8.4-10.5) mg/dL Total Bilirubin (0.2-1.3) mg/dL AST (17-59) U/L ALT (7-56) U/L Alkaline Phosphatase (38-126) U/L Total Protein (5.8-8.3) g/dL Albumin (3.0-4.8) g/dL Albumin (PEP) 3.2 L (3.8-4.8) g/dL Globulin gm/dL Albumin/Globulin Ratio (1.1-1.8) Etnxn-3-Smgmekldl 0.5 H (0.2-0.3) g/dL Tspoe-2-Mskhmjysz 1.2 H (0.5-0.9) g/dL Fqkb-7-Kehcvooo 0.5 (0.4-0.6) g/dL Rfpm-1-Metnscuj 0.3 (0.2-0.5) g/dL Gamma Globulins 1.0 (0.8-1.7) g/dL Abnorm Protein Band 1 TEST NOT PERFORMED Abnorm Protein Band 2 TEST NOT PERFORMED Abnorm Protein Band 3 TEST NOT PERFORMED MARIA ANTONIA & SPEP Interp See note Laboratory Results - last 24 hr 09/06/17 09/11/17 09/11/17 05:30 05:30 05:30 WBC 6.6 RBC 4.19 Hgb 10.9 L Hct 36.5 L MCV 87.1 MCH 26.0 MCHC 29.9 L RDW 18.0 H Plt Count 356 MPV 9.8 pCO2 45 pO2 57.0 L HCO3 35.9 H ABG pH 7.51 H ABG Total CO2 37.3 H ABG O2 Saturation 93.9 L ABG O2 Content 13.4 L ABG Base Excess 11.6 H ABG Hemoglobin 10.4 L ABG Carboxyhemoglobin 2.0 H POC ABG HHb (Measured) 5.9 H ABG Methemoglobin 0.9 ABG O2 Capacity 14.3 L Hgb O2 Saturation 91.3 L FiO2 50.0 Sodium Potassium Chloride Carbon Dioxide Anion Gap BUN Creatinine Est GFR ( Amer) Est GFR (Non-Af Amer) Random Glucose Calcium Total Bilirubin AST ALT Alkaline Phosphatase Total Protein Albumin Albumin (PEP) 3.2 L Globulin Albumin/Globulin Ratio Qxqsz-1-Jingtlfnw 0.5 H Nonno-5-Lmknpdpmn 1.2 H Dbmj-6-Aqjjrxxb 0.5 Xbas-3-Vmiawkno 0.3 Gamma Globulins 1.0 Abnorm Protein Band 1 TEST NOT PERFORMED Abnorm Protein Band 2 TEST NOT PERFORMED Abnorm Protein Band 3 TEST NOT PERFORMED MARIA ANTONIA & SPEP Interp See note 09/11/17 05:30 WBC RBC Hgb Hct MCV MCH MCHC RDW Plt Count MPV pCO2 pO2 HCO3 ABG pH ABG Total CO2 ABG O2 Saturation ABG O2 Content ABG Base Excess ABG Hemoglobin ABG Carboxyhemoglobin POC ABG HHb (Measured) ABG Methemoglobin ABG O2 Capacity Hgb O2 Saturation FiO2 Sodium 142 Potassium 3.5 L Chloride 95 L Carbon Dioxide 37 H Anion Gap 13 BUN 17 Creatinine 0.5 L Est GFR ( Amer) > 60 Est GFR (Non-Af Amer) > 60 Random Glucose 100 Calcium 9.4 Total Bilirubin 0.6 AST 39 ALT 37 Alkaline Phosphatase 100 Total Protein 6.0 Albumin 3.3 Albumin (PEP) Globulin 2.7 Albumin/Globulin Ratio 1.2 Gbyxr-1-Apkmimpjj Phjby-7-Zcssmsvhc Prbk-5-Vxedrcdf Giur-0-Zskaocop Gamma Globulins Abnorm Protein Band 1 Abnorm Protein Band 2 Abnorm Protein Band 3 MARIA ANTONIA & SPEP Interp Review of Systems - Review of Systems All systems: reviewed and no additional remarkable complaints except (as per HPI ) Critical Care Progress Note - Prophylaxis GI Prophylaxis GI: PPI - Prophylaxis DVT Prophylaxis DVT: Heparin SQ - Nutrition Nutrition: Nutrition Category Date Time Status Liquid Diet [DIET] Diets 09/10/17 Dinner Ordered Assessment/Plan - Assessment and Plan (Free Text) Assessment: 57yo M with PMH with CHF, emphysema (on home O2 4L), paroxysmal a.fib, Thoracic compression fracture (chronic opioid user) and anemia was admitted for UTI, COPD exacerbation and anemia secondary to GI bleed. Plan: Neuro: A&O x 3 Continue pain control Maintain normotermia Neuro consulted, recs appreciated will start Gabapentin 100mg HS per Neuro recs CV: Hx of a.fib and CHF HD stable at this time Anticoagulants on hold for GI bleed, per Cardio, will not restart Xarelto DVT ppx with heparin SC Cardio on consult Lasix 40 IVP daily and Sotalol Monitor I&O. Maintain MAP >65 Pulm: COPD exacerbation resolved Satting well on high flow O2 Pulm consulted Maintain spO2>92% Aspiration precaution, HOB elevated Solumedrol decreased to 40q8 Continue Brovana, Singulair, Daliresp, Xopenex GI: Rectal bleeding while on Xeralto, will not restart per Cardio recs GI on consult-recs appreciated Clear liquid diet Heme: Anemia secondary to GI bleed s/p 2U PRBC Hgb stable Hold anticoagulants Monitor H/H Heme consulted ID: [id number] Afebrile, no leukocytosis Culture results done with sensitivities Patient on Vanc and Meropenem Endo: Maintain euglycemia GI ppx: Protonix DVT ppx: Heparin and SCDs Dispo: Patient is HD stable. He will be transferred to [facility]. Patient was seen, examined and discussed with attending, Dr. Jorge A Srivastava PGY1 Pager # [phone] <Omer Jules - Last Filed: 09/11/17 13:25> CCU Objective - Vital Signs / Intake & Output Vital Signs (Last 4 hours): Vital Signs Pulse BP 09/11/17 11:09 119 H 132/77 Intake and Output (Last 8hrs): Intake & Output 09/10/17 09/11/17 09/11/17 22:59 06:59 14:59 Intake Total 954 634 Output Total 850 1400 Balance 104 -766 Weight 164 lb 8 oz Intake: IV 504 514 abx 450 460 diprivan 27 27 fentanyl 27 27 Oral 450 120 Output: Urine 850 1400 Urethral (Live) 850 1400 Other: # Bowel Movements 0 0 - Medications Active Medications: Active Medications Generic Name Dose Route Start Last Admin Trade Name Freq PRN Reason Stop Dose Admin Acetaminophen 650 mg 09/02/17 21:43 09/02/17 22:10 Tylenol 325mg Tab PO 650 mg Q6H PRN Administration Pain, moderate (4-7) Alprazolam 0.5 mg 09/06/17 10:00 09/11/17 09:26 Xanax PO 0.5 mg TID PRN Administration Anxiety Protocol Artificial Tears 0.3 ml 09/06/17 18:03 Refresh Opth Soln OU Q8H PRN Dry eyes Furosemide 10 mg 09/10/17 22:00 09/11/17 05:10 Lasix IVP 10 mg Q8 ERNESTINA Administration Gabapentin 100 mg 09/11/17 22:00 Neurontin PO HS ERNESTINA Protocol Heparin Sodium (Porcine) 5,000 units 09/08/17 14:00 09/11/17 05:08 Heparin SC 5,000 units Q8 ERNESTINA Administration Protocol Vancomycin HCl 1 gm in 250 mls @ 167 mls/hr 09/08/17 10:45 09/11/17 11:11 Vancomycin 1gm IVPB 167 mls/hr Q12H ERNESTINA Administration Protocol Meropenem/Sodium Chloride 1 gm in 100 mls @ 100 mls/hr 09/08/17 14:00 05:11 Meropenem 1g/Ns 100ml Ivpb IVPB 100 mls/hr Q8 ERNESTINA Administration Protocol Fentanyl Citrate 1,000 mcg in 100 mls @ 7.5 mls/hr 09/08/17 12:18 09/10/17 09 :25 Fentanyl Citrate/Sodium Chloride 1 Mg/100 Ml IV 0 mcg/hr .[id number] PRN 0 mls/hr TITRATE PER MD ORDER Titration Protocol 75 MCG/HR Levalbuterol HCl 1.25 mg 09/02/17 20:00 09/11/17 08:36 Xopenex IH 1.25 mg [id number] ERNESTINA Administration Methylprednisolone 40 mg 09/05/17 22:00 09/11/17 11:10 Solu-Medrol IVP 40 mg Q12 ERNESTINA Administration Montelukast Sodium 10 mg 09/02/17 22:00 09/10/17 21:16 Singulair PO 10 mg HS ERNESTINA Administration Oxycodone HCl 15 mg 09/04/17 10:21 09/11/17 11:10 Oxycodone Immediate Release Tab PO 15 mg Q4H PRN Administration Pain, severe (8-10) Pantoprazole Sodium 40 mg 09/04/17 10:00 09/11/17 11:10 Protonix Inj IVP 40 mg Q12 ERNESTINA Administration Roflumilast 500 mcg 09/02/17 12:15 09/11/17 11:10 Daliresp PO 500 mcg DAILY ERNESTINA Administration Sotalol HCl 120 mg 09/02/17 18:00 09/11/17 11:09 Betapace PO 120 mg BID ERNESTINA Administration Tizanidine HCl 4 mg 09/02/17 14:00 09/11/17 11:09 Zanaflex PO 4 mg TID ERNESTINA Administration - Patient Studies Lab Studies: Microbiology Studies 09/08/17 11:00 Blood Culture - Preliminary Blood NO GROWTH AFTER 3 DAYS 09/08/17 10:30 Blood Culture - Preliminary Blood NO GROWTH AFTER 3 DAYS 09/08/17 18:31 Urine Culture - Final Urine,Catheterized No Growth (<1,000 CFU/ML) Lab Studies 09/11/17 09/11/17 09/11/17 Range/Units 05:30 05:30 05:30 WBC 6.6 (4.5-11.0) 10^3/ul RBC 4.19 (3.5-6.1) 10^6/uL Hgb 10.9 L (14.0-18.0) g/dL Hct 36.5 L (42.0-52.0) % MCV 87.1 (80.0-105.0) fl MCH 26.0 (25.0-35.0) pg MCHC 29.9 L (31.0-37.0) g/dl RDW 18.0 H (11.5-14.5) % Plt Count 356 (120.0-450.0) 10^3/uL MPV 9.8 (7.0-11.0) fl pCO2 45 (35-45) mm/Hg pO2 57.0 L (80-100) mm/Hg HCO3 35.9 H (21-28) mmol/L ABG pH 7.51 H (7.35-7.45) ABG Total CO2 37.3 H (22-28) mmol.L ABG O2 Saturation 93.9 L (95-98) % ABG O2 Content 13.4 L (15-23) ML/dl ABG Base Excess 11.6 H (-2.0-3.0) mmol/L ABG Hemoglobin 10.4 L (11.7-17.4) g/dL ABG Carboxyhemoglobin 2.0 H (0.5-1.5) % POC ABG HHb (Measured) 5.9 H (0-5) % ABG Methemoglobin 0.9 (0.0-3.0) % ABG O2 Capacity 14.3 L (16-24) mL/dl Hgb O2 Saturation 91.3 L (95.0-98.0) % FiO2 50.0 % Sodium 142 (132-148) mmol/L Potassium 3.5 L (3.6-5.0) mmol/L Chloride 95 L (98-107) mmol/L Carbon Dioxide 37 H (21-33) mmol/L Anion Gap 13 (10-20) BUN 17 (7-21) mg/dL Creatinine 0.5 L (0.8-1.5) mg/dl Est GFR ( Amer) > 60 Est GFR (Non-Af Amer) > 60 Random Glucose 100 (70-110) mg/dL Calcium 9.4 (8.4-10.5) mg/dL Total Bilirubin 0.6 (0.2-1.3) mg/dL AST 39 (17-59) U/L ALT 37 (7-56) U/L Alkaline Phosphatase 100 (38-126) U/L Total Protein 6.0 (5.8-8.3) g/dL Albumin 3.3 (3.0-4.8) g/dL Albumin (PEP) (3.8-4.8) g/dL Globulin 2.7 gm/dL Albumin/Globulin Ratio 1.2 (1.1-1.8) Wpnpp-9-Dwsevegtq (0.2-0.3) g/dL Wqgzz-4-Snptqisut (0.5-0.9) g/dL Sjsm-9-Oifvzfnn (0.4-0.6) g/dL Vfzq-0-Qoxemnbi (0.2-0.5) g/dL Gamma Globulins (0.8-1.7) g/dL Abnorm Protein Band 1 Abnorm Protein Band 2 Abnorm Protein Band 3 MARIA ANTONIA & SPEP Interp 09/06/17 Range/Units 05:30 WBC (4.5-11.0) 10^3/ul RBC (3.5-6.1) 10^6/uL Hgb (14.0-18.0) g/dL Hct (42.0-52.0) % MCV (80.0-105.0) fl MCH (25.0-35.0) pg MCHC (31.0-37.0) g/dl RDW (11.5-14.5) % Plt Count (120.0-450.0) 10^3/uL MPV (7.0-11.0) fl pCO2 (35-45) mm/Hg pO2 (80-100) mm/Hg HCO3 (21-28) mmol/L ABG pH (7.35-7.45) ABG Total CO2 (22-28) mmol.L ABG O2 Saturation (95-98) % ABG O2 Content (15-23) ML/dl ABG Base Excess (-2.0-3.0) mmol/L ABG Hemoglobin (11.7-17.4) g/dL ABG Carboxyhemoglobin (0.5-1.5) % POC ABG HHb (Measured) (0-5) % ABG Methemoglobin (0.0-3.0) % ABG O2 Capacity (16-24) mL/dl Hgb O2 Saturation (95.0-98.0) % FiO2 % Sodium (132-148) mmol/L Potassium (3.6-5.0) mmol/L Chloride (98-107) mmol/L Carbon Dioxide (21-33) mmol/L Anion Gap (10-20) BUN (7-21) mg/dL Creatinine (0.8-1.5) mg/dl Est GFR ( Amer) Est GFR (Non-Af Amer) Random Glucose (70-110) mg/dL Calcium (8.4-10.5) mg/dL Total Bilirubin (0.2-1.3) mg/dL AST (17-59) U/L ALT (7-56) U/L Alkaline Phosphatase (38-126) U/L Total Protein (5.8-8.3) g/dL Albumin (3.0-4.8) g/dL Albumin (PEP) 3.2 L (3.8-4.8) g/dL Globulin gm/dL Albumin/Globulin Ratio (1.1-1.8) Cnvkw-1-Qpdypztyj 0.5 H (0.2-0.3) g/dL Mgoft-6-Whkbctooh 1.2 H (0.5-0.9) g/dL Nboe-0-Awyviwim 0.5 (0.4-0.6) g/dL Yqtr-3-Fkkootsv 0.3 (0.2-0.5) g/dL Gamma Globulins 1.0 (0.8-1.7) g/dL Abnorm Protein Band 1 TEST NOT PERFORMED Abnorm Protein Band 2 TEST NOT PERFORMED Abnorm Protein Band 3 TEST NOT PERFORMED MARIA ANTONIA & SPEP Interp See note Laboratory Results - last 24 hr 09/06/17 09/11/17 09/11/17 05:30 05:30 05:30 WBC 6.6 RBC 4.19 Hgb 10.9 L Hct 36.5 L MCV 87.1 MCH 26.0 MCHC 29.9 L RDW 18.0 H Plt Count 356 MPV 9.8 pCO2 45 pO2 57.0 L HCO3 35.9 H ABG pH 7.51 H ABG Total CO2 37.3 H ABG O2 Saturation 93.9 L ABG O2 Content 13.4 L ABG Base Excess 11.6 H ABG Hemoglobin 10.4 L ABG Carboxyhemoglobin 2.0 H POC ABG HHb (Measured) 5.9 H ABG Methemoglobin 0.9 ABG O2 Capacity 14.3 L Hgb O2 Saturation 91.3 L FiO2 50.0 Sodium Potassium Chloride Carbon Dioxide Anion Gap BUN Creatinine Est GFR ( Amer) Est GFR (Non-Af Amer) Random Glucose Calcium Total Bilirubin AST ALT Alkaline Phosphatase Total Protein Albumin Albumin (PEP) 3.2 L Globulin Albumin/Globulin Ratio Suhrv-6-Ekatgmwas 0.5 H Tsomr-7-Aepmukkfc 1.2 H Ecou-4-Bjxbemax 0.5 Zsnj-5-Qgwphtzr 0.3 Gamma Globulins 1.0 Abnorm Protein Band 1 TEST NOT PERFORMED Abnorm Protein Band 2 TEST NOT PERFORMED Abnorm Protein Band 3 TEST NOT PERFORMED MARIA ANTONIA & SPEP Interp See note 09/11/17 05:30 WBC RBC Hgb Hct MCV MCH MCHC RDW Plt Count MPV pCO2 pO2 HCO3 ABG pH ABG Total CO2 ABG O2 Saturation ABG O2 Content ABG Base Excess ABG Hemoglobin ABG Carboxyhemoglobin POC ABG HHb (Measured) ABG Methemoglobin ABG O2 Capacity Hgb O2 Saturation FiO2 Sodium 142 Potassium 3.5 L Chloride 95 L Carbon Dioxide 37 H Anion Gap 13 BUN 17 Creatinine 0.5 L Est GFR ( Amer) > 60 Est GFR (Non-Af Amer) > 60 Random Glucose 100 Calcium 9.4 Total Bilirubin 0.6 AST 39 ALT 37 Alkaline Phosphatase 100 Total Protein 6.0 Albumin 3.3 Albumin (PEP) Globulin 2.7 Albumin/Globulin Ratio 1.2 Fioqi-1-Srqhrfrqk Tqkbp-4-Jarrqywgm Coxf-0-Rxagcydn Snkt-5-Xjfodwje Gamma Globulins Abnorm Protein Band 1 Abnorm Protein Band 2 Abnorm Protein Band 3 MARIA ANTONIA & SPEP Interp Critical Care Progress Note - Nutrition Nutrition: Nutrition Category Date Time Status Liquid Diet [DIET] Diets 09/10/17 Dinner Ordered Assessment/Plan - Assessment and Plan (Free Text) Assessment: Pt seen and examined on rounds with resident, agree with note with following additions/exceptions: 57yo male with PMHx of COPD on home o2, Afib on Xarelto, Chronic opiod use, admitted with hypercapnic/hypoxic resp failure, intubated. Patient yesterday placed on CPAP trial, for 1 hour, did well, subsequently extubated to high flow 50%/50LPM. Currently afebrile, HD stable, comfortable in NAD, good oxygenation. COPD exacerbation Respiratory failure Chronic Hypoxia Anemia, stable Afib Recommend: - cont with high flow as tolerated, titrate down FiO2, goal sat 90% - Solumedrol 40mg IV q12hr - antibiotics as per ID - follow up cultures - Sotalol - Lasix daily - Duonebs PRN - monitor HH, follow up GI, EGD when optimized as per GI - defer anticoagulaiton to Cardiology - - GI ppx, PPI - DVT ppx, HSQ - stable, transfer to telemetry
--- NOTE | 2017-09-11 14:07 | CON ---
DATE: 09/11/2017 NEUROLOGY CONSULTATION CHIEF COMPLAINT: Facial numbness and whole body numbness. HISTORY OF PRESENT ILLNESS: This is a 57-year-old man with past medical history of COPD, on home oxygen; AFib, on Xarelto; chronic opioid use; history of T9 vertebral fracture; chronic anemia; nonischemic cardiomyopathy, who came in for hypercapnic-hypoxic respiratory failure, was initially intubated, currently extubated, is sitting up in the chair with high-flow oxygen, complained of facial numbness and whole body numbness. He is mildly anxious. His blood pressures are stable and electrolytes are stable except for some low potassium. He moves all extremities, no focal deficits on neuro exam. No pronator drift seen. PAST MEDICAL HISTORY: COPD, on home oxygen; AFib, on Xarelto; chronic opioid use; history of T9 vertebral fracture; history of ischemic cardiomyopathy. ALLERGIES: NO KNOWN DRUG ALLERGIES. SOCIAL HISTORY: No illicit drug use, smoking or EtOH abuse at this time. FAMILY HISTORY: Noncontributory. REVIEW OF SYSTEMS: A 14-point of review of systems except as per the HPI. PHYSICAL EXAMINATION: VITAL SIGNS: Temperature afebrile, pulse rate 75, blood pressure 136/68, high-flow oxygen. GENERAL: Patient is sitting up in bed, in no acute distress. HEENT: Head is atraumatic and normocephalic. PERRLA. Extraocular muscles intact. NECK: Supple. No JVD, no adenopathy noted. LUNGS: Mild decreased breath sounds, otherwise no wheeze or rhonchi. ABDOMEN: Soft, nontender, nondistended. Bowel sounds present. EXTREMITIES: No clubbing, no cyanosis. Peripheral pulses 2+ felt bilaterally. NEUROLOGIC: Patient is mildly anxious. Otherwise A and O x3. Speech is fluent without any errors. Cranial nerves II-XII intact. No pronator drift seen. No facial asymmetry. Motor: Moves all extremities equally. No focal weakness. Toes are downgoing bilaterally. DTRs are 2+ throughout. Coordination: Zrwprw-ev-opas intact. Gait is deferred for now. LABORATORY DATA: Sodium is 142, potassium 3.5, chloride is 95, carbon dioxide 37, BUN 17, creatinine 0.5, random glucose 100. ASSESSMENT AND PLAN: This is a 57-year-old man with history of chronic obstructive pulmonary disease, on home oxygen; atrial fibrillation, on Xarelto; chronic opioid use; T9 vertebral fracture; history of ischemic cardiomyopathy, came in for hypercapnic-hypoxic respiratory failure, status post intubation, status post extubation, currently on high-flow oxygen and DuoNeb. I was consulted for generalized numbness as well as facial numbness. He is mildly anxious. Facial numbness could be secondary to his hypercapnic-hypoxic respiratory failure superimposed on anxiety and given his underlying high-flow oxygen. No focal neurological deficits seen on examination. At this recommend: 1. Aspirin 81 mg for stroke prevention and he is Xarelto given his history of AFib. 2. Keep blood pressure between 130 to 144. 3. Monitor electrolytes and correct accordingly. He is mildly hypokalemic, we will therefore correct his underlying hypokalemia. 4. respiratory treatments, which could also cause facial numbness, therefore be cautious. 5. Continue with the Xanax p.r.n. for his underlying anxiety. 6. Give gabapentin 100 mg p.o. at bedtime for underlying numbness. Once again, he is neurologically stable. Thank you for this consult. Demarco Linder MD
--- NOTE | 2017-09-11 16:24 | CP.PCM.PN ---
Subjective - Date & Time of Evaluation Date of Evaluation: 09/11/17 Time of Evaluation: 09:10 - Subjective Subjective: Extubated, still with shortness of breath at rest, no fevers, still with cough. Objective - Vital Signs/Intake and Output Vital Signs (last 24 hours): Temp Pulse Resp BP Pulse Ox 98.2 F 75 13 136/68 95 09/11/17 04:00 09/11/17 05:41 09/11/17 04:00 09/11/17 05:10 09/11/17 05:00 Intake and Output: 09/10/17 09/11/17 18:59 06:59 Intake Total 1125.6 634 Output Total 850 1400 Balance 275.6 -766 - Medications Medications: Current Medications Acetaminophen (Tylenol 325mg Tab) 650 mg PO Q6H PRN PRN Reason: Pain, moderate (4-7) Last Admin: 09/02/17 22:10 Dose: 650 mg Alprazolam (Xanax) 0.5 mg PO TID PRN; Protocol PRN Reason: Anxiety Last Admin: 09/08/17 00:26 Dose: 0.5 mg Artificial Tears (Refresh Opth Soln) 0.3 ml OU Q8H PRN PRN Reason: Dry eyes Furosemide (Lasix) 10 mg IVP Q8 ERNESTINA Last Admin: 09/11/17 05:10 Dose: 10 mg Heparin Sodium (Porcine) (Heparin) 5,000 units SC Q8 ERNESTINA PRN Reason: Protocol Last Admin: 09/11/17 05:08 Dose: 5,000 units Vancomycin HCl (Vancomycin 1gm) 1 gm in 250 mls @ 167 mls/hr IVPB Q12H ERNESTINA PRN Reason: Protocol Last Admin: 09/10/17 22:14 Dose: 167 mls/hr Meropenem/Sodium Chloride (Meropenem 1g/Ns 100ml Ivpb) 1 gm in 100 mls @ 100 mls/hr IVPB Q8 ERNESTINA PRN Reason: Protocol Last Admin: 09/11/17 05:11 Dose: 100 mls/hr Propofol (Diprivan) 1,000 mg in 100 mls @ 2.164 mls/hr IV .Q24H PRN; Protocol; 5 MCG/KG/MIN PRN Reason: TITRATE PER MD ORDER Last Titration: 09/10/17 09:15 Dose: 0 mcg/kg/min, 0 mls/hr Fentanyl Citrate (Fentanyl Citrate/Sodium Chloride 1 Mg/100 Ml) 1,000 mcg in 100 mls @ 7.5 mls/hr IV .[id number] PRN; Protocol; 75 MCG/HR PRN Reason: TITRATE PER MD ORDER Last Titration: 09/10/17 09:25 Dose: 0 mcg/hr, 0 mls/hr Levalbuterol HCl (Xopenex) 1.25 mg IH [id number] [facility] Last Admin: 09/11/17 02:31 Dose: 1.25 mg Methylprednisolone (Solu-Medrol) 40 mg IVP Q12 [facility] Last Admin: 09/10/17 21:17 Dose: 40 mg Montelukast Sodium (Singulair) 10 mg PO HS [facility] Last Admin: 09/10/17 21:16 Dose: 10 mg Oxycodone HCl (Oxycodone Immediate Release Tab) 15 mg PO Q4H PRN PRN Reason: Pain, severe (8-10) Last Admin: 09/11/17 05:09 Dose: 15 mg Pantoprazole Sodium (Protonix Inj) 40 mg IVP Q12 [facility] Last Admin: 09/10/17 21:18 Dose: 40 mg Roflumilast (Daliresp) 500 mcg PO DAILY [facility] Last Admin: 09/10/17 09:47 Dose: 500 mcg Sotalol HCl (Betapace) 120 mg PO BID [facility] Last Admin: 09/10/17 17:21 Dose: 120 mg Tizanidine HCl (Zanaflex) 4 mg PO TID [facility] Last Admin: 09/10/17 17:22 Dose: 4 mg - Labs Labs: 09/10/17 05:00 09/10/17 05:00 PT 11.4 SECONDS (9.4-12.5) 09/04/17 09:30 INR 0.99 (0.93-1.08) 09/04/17 09:30 APTT 21.6 Seconds (25.1-36.5) L 09/04/17 09:30 - Constitutional Appears: Chronically Ill - Head Exam Head Exam: NORMAL INSPECTION - ENT Exam ENT Exam: Mucous Membranes Moist - Neck Exam Neck Exam: absent: Meningismus - Respiratory Exam Respiratory Exam: Decreased Breath Sounds - Cardiovascular Exam Cardiovascular Exam: +S1, +S2 - GI/Abdominal Exam GI & Abdominal Exam: Soft. absent: Tenderness Assessment and Plan - Assessment and Plan (Free Text) Plan: Assessment consider severe sepsis S/P VDRF due to bilateral lower lobe HCAP in this patient with possible small bowel obstruction CAD with chronic CHF atrial fibrillation COPD history of DVT Plan continue Vancomycin and Merrem day 4 - cultures have been negative - should complete 4-7 days of antibiotics will continue to monitor clinically
--- NOTE | 2017-09-11 20:58 | PN ---
DATE: 09/11/2017 PULMONARY CRITICAL CARE PROGRESS NOTE REFERRING PHYSICIAN: Ross Bowman MD. SUBJECTIVE: The patient is lying in the bed on high-flow oxygen, having dinner. Night was unremarkable. Feels a little better. Still very short of breath, very deconditioned. Need lift to get him out of bed to chair. No abdominal pain. No diarrhea. No leg pain or leg swelling. OBJECTIVE: GENERAL: In no acute distress. VITAL SIGNS: Temp is 98, heart rate is 85, respiratory rate is 26, blood pressure 125/76, pulse ox 95% on high-flow nasal cannula. HEENT: Dry mucous membrane. NECK: Supple. No JVD. LUNGS: Have some crackles and rhonchi. HEART: S1 and S2. ABDOMEN: Soft and nontender. There is no organomegaly. EXTREMITIES: There is no edema. NEUROLOGICAL: Awake, alert. Follows simple command. LABORATORY DATA: Shows hemoglobin 10.9, hematocrit 36.5, WBC 6.6, platelet is 356. Blood gases today showed pH 7.51, pCO2 of 45, O2 of 57 that is on high-flow 50 L oxygen. Sodium 142, potassium 3.5, chloride 95, bicarbonate 37, BUN 17, creatinine 0.5, glucose is 100, calcium is 9.4, AST 39, ALT 37, alk phos is 100, albumin is 3.3. Microbiology: Blood culture has been negative. A repeat urine culture, there is no growth. Chest x-ray done today shows extubation. Still has a bilateral infiltrate, but improved, especially on the right lung. MEDICATIONS: He is on Betapace 120 mg twice a day, Daliresp 500 mcg daily, heparin 5000 units subcu q. 8 hours, Lasix 10 mg q. 8 hours, meropenem 1 g IV q. 8 hours, gabapentin 100 mg at bedtime, oxycodone immediate release 15 mg q. 4 hours p.r.n., Protonix 40 mg twice a day, artificial tears to both eyes q. 8 hours, Singulair 10 mg daily, Solu-Medrol 40 mg q. 12 hours, Tylenol p.r.n., vancomycin 1 g IV q. 12 hours, Xanax 0.5 mg three times a day p.r.n., Xopenex 1.25 mg q. 6 hours, Zanaflex 4 mg three times a day. IMPRESSION AND PLAN: Respiratory failure, liberated from ventilator, on high-flow nasal cannula oxygen. Chronic obstructive lung disease. Also component of cardiomyopathy with heart failure, history of atelectasis, fibrosis, pulmonary hypertension, anemia, vertebral compression fracture, atrial fibrillation. Case discussed with nursing staff. I also spoke to my resident. Continue IV diuretics, IV and inhaled bronchodilator, antibiotics. Keep head elevated at 45 degrees. May continue high-flow nasal cannula. Physical therapy. Follow up labs in the morning. Critical care time is more than 35 minutes. Thank you and we will follow with you. Shaila Mercado MD
[2017-09-12] MEDS: Levalbuterol 1.25 MG/3 ML Inhal Soln UD IH SCH ×4 (01:05→20:00)
--- NOTE | 2017-09-12 01:47 | PN ---
DATE: SUBJECTIVE: The patient is a 57-year-old, seen and examined while successfully extubated. Mild shortness of breath, on high-flow oxygen, 50% Ventimask, seems to be comfortable. PHYSICAL EXAMINATION VITAL SIGNS: He is afebrile. Pulse 85, respirations , blood pressure 125/76. LUNGS: Bilateral decreased breath sounds rhonchi. HEART: S1 and S2 audible. ABDOMEN: Soft, nontender. No rebound. No guarding. NEUROLOGIC: The patient is awake and alert. Able to communicate. LABORATORY DATA: WBC 6.6, hemoglobin 10.9, hematocrit 36.5, platelets 365. Chemistries: Sodium 142, potassium 3.5, chloride 95, CO2 of 37, BUN 17, creatinine 0.5, blood sugar of 100. Urine cultures and blood cultures are negative. ASSESSMENT: 1. Chronic obstructive pulmonary disease exacerbation, status post extubation. 2. Nonischemic cardiomyopathy. 3. Status post gastrointestinal bleed. 4. Bilateral pneumonia. 5. Left facial and tongue numbness. 6. Anxiety disorder. 7. Narcotic dependence. PLAN: Currently, the patient is on nebulizer treatment. He is on Sotalol. His AFib was corrected by ablation. He is off of anticoagulation. He is on DVT prophylaxis. We will continue him on IV diuretics. He is on meropenem and he is on 40 mg q. 12, vancomycin 1 g q. [address] The patient seems to be relatively stable and can be transferred to telemetry close to the nursing station. Ross Bowman MD
--- NOTE | 2017-09-12 01:58 | PN ---
DATE: SUBJECTIVE: This patient was seen and evaluated today. The patient is off the ventilator. The patient is alert . PHYSICAL EXAMINATION: VITAL SIGNS: Afebrile. Blood pressure is 125/76, pulse 68, O2 saturation 95%, respiration is 24. HEENT: Atraumatic and anicteric. NECK: Supple. HEART: S1 and S2 heard. LUNGS: Bilateral air entry present. ABDOMEN: Soft. EXTREMITIES: No cyanosis. No clubbing. LABORATORY DATA: Hemoglobin 10.9, hematocrit 36.5, WBC 6.6, platelets 356. Chemistry: Potassium 3.5. LFTs normal. IMPRESSION: This is a 57-year-old patient with a past medical history of COPD, paroxysmal atrial fibrillation, status post ablation therapy, cardiomyopathy, admitted with shortness of breath. The patient gave a history of bright red blood per rectum for few days before the admission. The patient's hemoglobin was 7.2. On admission, the patient was transfused 2 units. Presently, the hemoglobin has been stable. The patient was intubated and extubated. The patient is on heparin now, hemoglobin has been stable. The patient has history of right upper quadrant pain, improved on high dose PPI. Recommend to closely follow up with the hemoglobin and hematocrit. Slowly advance the diet. We will consider endoscopy and also colonoscopy evaluation after further optimization of the cardiopulmonary status. We will continue to closely follow up with his care. Thank you very much for allowing me to participate in the care of the patient. Felicia Bnasal MD
[2017-09-12] MEDS: oxyCODONE 15 mg Immediate Release Tab PO PRN ×4 (04:17→19:57)
[2017-09-12] MEDS: Meropenem 1g/NS 100mL IVPB 1 GM/100 ML PIGGYBACK IVPB SCH ×2 (05:25→14:21)
[2017-09-12 05:45] LABS: ARTERIAL BLOOD GAS O2 CAPACITY 15.3 mL/dl (16-24); ARTERIAL BLOOD GAS O2 CONTENT 14.9 ML/dl (15-23); ARTERIAL BLOOD GAS O2 SAT 97.7 % (95-98); ARTERIAL BLOOD GAS PCO2 62 mm/Hg (35-45); ARTERIAL BLOOD GAS PH 7.44 (7.35-7.45)
[2017-09-12 05:49] LABS: ARTERIAL BLOOD GAS HCO3 42.1 mmol/L (21-28)
[2017-09-12 08:05] LABS: HEMOGLOBIN 11.5 g/dL (14.0-18.0); MEAN CELL VOLUME 89.1 fl (80.0-105.0); MEAN CORPUSCULAR HEMOGLOBIN 26.6 pg (25.0-35.0); MEAN CORPUSCULAR HGB CONC 29.8 g/dl (31.0-37.0); MEAN PLATELET VOLUME 9.7 fl (7.0-11.0); RBC 4.33 10^6/uL (3.5-6.1); RED CELL DISTRIBUTION WIDTH 18.1 % (11.5-14.5)
--- NOTE | 2017-09-12 08:23 | PN ---
DATE: 09/11/2017 REASON FOR CONSULTATION AND FOLLOWUP: Nonischemic cardiomyopathy; paroxysmal atrial fibrillation, status post radiofrequency ablation; rectal bleed; respiratory failure, intubated and subsequently extubated, very brief period; AFib, now converted to normal sinus. SUBJECTIVE: Patient denies any chest pain, shortness of breath, or any palpitation. OBJECTIVE: GENERAL: Not in apparent distress, sitting on the chair. Feels that he is dependent narcotically. VITAL SIGNS: Heart rate 75, blood pressure 132/77. HEENT: PERRLA, extraocular muscles intact. NECK: Supple. No carotid bruit or thyromegaly. CHEST: Clear to auscultation. HEART: S1 and S2, regular. ABDOMEN: Soft. EXTREMITIES: Clubbing and cyanosis negative. LABORATORY DATA: Blood workup as follows: WBC 6.6, hemoglobin 10.9, hematocrit 36.5, platelet count 356. Chemistry shows sodium 142, potassium 3.5, chloride 95, carbon dioxide 32, anion gap of 13, BUN 17, creatinine 0.5. IMPRESSION: Status post respiratory failure, bronchospasm, is extubated very brief period of atrial fibrillation; history of atrial fibrillation, status post radiofrequency ablation, was on Eliquis at home, brought here on Eliquis; has a big rectal bleed, off anticoagulation; nonischemic cardiomyopathy; chronic obstructive pulmonary disease; narcotic dependent. Most recent echo on 09/08/2017 shows left ventricular function, borderline; systolic function reduced; mild tricuspid regurgitation; [id number] pulmonary hypertension. RECOMMENDATION: Continue sotalol, we will continue DVT prophylaxis, oxycodone. treatment for COPD. Resident patient was on Eliquis at home, but since the patient has a big rectal bleed, we will hold off anticoagulation, a full dose of anticoagulation. Patient is in normal sinus, though very briefly, the patient went, after the intubation, AFib converted to normal sinus. Since recent history of GI bleed, we will try to off. Continue sotalol. The patient is in normal sinus. We will supplement potassium. We will repeat EKG in the morning. Thank you, Dr. Bowman, for providing us the opportunity in taking care of the patient, Rachael. Shaila Samuel MD cc: Ross Bowman MD [facility] # [id number]
--- NOTE | 2017-09-12 08:37 | RAD ---
HISTORY: intubated COMPARISON: 09/11/2017 FINDINGS: LUNGS: Bibasilar subsegmental atelectasis. PLEURA: No significant pleural effusion identified, no pneumothorax apparent. CARDIOVASCULAR: Normal. OSSEOUS STRUCTURES: No significant abnormalities. VISUALIZED UPPER ABDOMEN: Normal. OTHER FINDINGS: None. IMPRESSION: Bibasilar subsegmental atelectasis. Otherwise unremarkable.
[2017-09-12 08:40] LABS: ALB/GLOB RATIO 1.3 (1.1-1.8); ALBUMIN 3.4 g/dL (3.0-4.8); ALT/SGPT 40 U/L (7-56); AST/SGOT 25 U/L (17-59); BLOOD UREA NITROGEN 16 mg/dL (7-21); CALCIUM 9.5 mg/dL (8.4-10.5); GFR AFRICAN-AMERICAN > 60; GFR NON-AFRICAN AMERICAN > 60
--- NOTE | 2017-09-12 10:31 | CARD ---
APPROVED REPORT EKG Measurement Heart [id number] <Conclusion> Atrial fibrillation with rapid ventricular response, new NSSTW changes Prolonged QTc
[2017-09-12] MEDS: Vancomycin 1gm in NS 250ml 1 GM/250 ML BAG IVPB SCH (10:39)
[2017-09-12] MEDS: MethylPREDNISolone 40 mg Vial IVP SCH ×2 (10:41→21:08)
--- NOTE | 2017-09-12 11:57 | CP.PCM.PN ---
<Kiki Vega - Last Filed: 09/12/17 11:57> Subjective - Date & Time of Evaluation Date of Evaluation: 09/12/17 Time of Evaluation: 09:45 - Subjective Subjective: S&E at bedside, on 100% O2NC, no respiratory distress, denies abdominal pain, N/ V tolerated full liquids, no reports of BM. Appear clinically better. Objective - Vital Signs/Intake and Output Vital Signs (last 24 hours): Temp Pulse Resp BP Pulse Ox 98.3 F 99 H 18 100/64 98 09/12/17 04:00 09/12/17 11:09 09/12/17 07:36 09/12/17 11:09 09/12/17 07:00 Intake and Output: 09/12/17 09/12/17 06:59 18:59 Intake Total 810 Output Total 2575 Balance -1765 - Medications Medications: Current Medications Acetaminophen (Tylenol 325mg Tab) 650 mg PO Q6H PRN PRN Reason: Pain, moderate (4-7) Last Admin: 09/02/17 22:10 Dose: 650 mg Alprazolam (Xanax) 0.5 mg PO TID PRN; Protocol PRN Reason: Anxiety Last Admin: 09/12/17 06:40 Dose: 0.5 mg Artificial Tears (Refresh Opth Soln) 0.3 ml OU Q8H PRN PRN Reason: Dry eyes Furosemide (Lasix) 20 mg IVP Q12 ERNESTINA Last Admin: 09/12/17 10:40 Dose: 20 mg Gabapentin (Neurontin) 100 mg PO HS ERNESTINA PRN Reason: Protocol Last Admin: 09/11/17 23:19 Dose: 100 mg Heparin Sodium (Porcine) (Heparin) 5,000 units SC Q8 ERNESTINA PRN Reason: Protocol Last Admin: 09/12/17 05:24 Dose: 5,000 units Vancomycin HCl (Vancomycin 1gm) 1 gm in 250 mls @ 167 mls/hr IVPB Q12H ERNESTINA PRN Reason: Protocol Last Admin: 09/12/17 10:39 Dose: 167 mls/hr Meropenem/Sodium Chloride (Meropenem 1g/Ns 100ml Ivpb) 1 gm in 100 mls @ 100 mls/hr IVPB Q8 ERNESTINA PRN Reason: Protocol Last Admin: 09/12/17 05:25 Dose: 100 mls/hr Levalbuterol HCl (Xopenex) 1.25 mg IH [id number] [facility] Last Admin: 09/12/17 07:33 Dose: 1.25 mg Methylprednisolone (Solu-Medrol) 40 mg IVP Q12 [facility] Last Admin: 09/12/17 10:41 Dose: 40 mg Montelukast Sodium (Singulair) 10 mg PO HS [facility] Last Admin: 09/11/17 23:19 Dose: 10 mg Oxycodone HCl (Oxycodone Immediate Release Tab) 15 mg PO Q4H PRN PRN Reason: Pain, severe (8-10) Last Admin: 09/12/17 11:05 Dose: 15 mg Pantoprazole Sodium (Protonix Inj) 40 mg IVP Q12 [facility] Last Admin: 09/12/17 10:40 Dose: 40 mg Roflumilast (Daliresp) 500 mcg PO DAILY [facility] Last Admin: 09/12/17 10:40 Dose: 500 mcg Sotalol HCl (Betapace) 120 mg PO BID [facility] Last Admin: 09/12/17 11:09 Dose: Not Given Tizanidine HCl (Zanaflex) 4 mg PO TID [facility] Last Admin: 09/12/17 10:41 Dose: 4 mg - Labs Labs: 09/12/17 07:40 09/12/17 07:40 PT 11.4 SECONDS (9.4-12.5) 09/04/17 09:30 INR 0.99 (0.93-1.08) 09/04/17 09:30 APTT 21.6 Seconds (25.1-36.5) L 09/04/17 09:30 - Constitutional Appears: No Acute Distress - Eye Exam Eye Exam: Normal appearance. absent: Scleral icterus - ENT Exam ENT Exam: Mucous Membranes Moist - Neck Exam Neck Exam: Normal Inspection - Respiratory Exam Respiratory Exam: NORMAL BREATHING PATTERN. absent: Respiratory Distress - Cardiovascular Exam Cardiovascular Exam: +S1, +S2 - GI/Abdominal Exam GI & Abdominal Exam: Soft, Normal Bowel Sounds. absent: Distended, Guarding, Tenderness, Rebound - Extremities Exam Extremities Exam: absent: Calf Tenderness - Neurological Exam Neurological Exam: Alert, Awake, Oriented x3 - Skin Skin Exam: Dry, Warm Assessment and Plan - Assessment and Plan (Free Text) Assessment: Assessment: S/P Respiratory failure Resolved RUQ abdominal pain, may be r/t hepatic congestion,s/p US, "ovid gas adjacent to pancreas, abd xray reports: Dilated small bowel loops, ? obstruction ,status post CT scan no evidence of high-grade dysplasia but positive small bowel dilated loops Non-STEMI Acute exacerbation of COPD GI bleed, rectal bleed Anemia status post 2 units of packed RBCs total Urinary tract infection History of chronic atrial fibrillation, status post cardiac ablation Plan: Monitor H&H , GI bleed and transfuse as necessary Continue Protonix twice a day On IV antibiotics On Solu-Medrol On iron supplement on Heparin SQ ,dvt prophlaxsis Full liquids, slowly advance diet as tolerated Consider endoscopy when patient is cardiopulmonary stable. Seen and discussed with Dr. Bansal. <Felicia Bansal V - Last Filed: 09/12/17 23:51> Objective - Vital Signs/Intake and Output Vital Signs (last 24 hours): Temp Pulse Resp BP Pulse Ox 98.3 F 90 20 136/53 L 100 09/12/17 04:00 09/12/17 22:00 09/12/17 18:00 09/12/17 21:07 09/12/17 18:00 Intake and Output: 09/12/17 09/13/17 18:59 06:59 Intake Total 950 Output Total 1800 Balance -850 - Medications Medications: Current Medications Acetaminophen (Tylenol 325mg Tab) 650 mg PO Q6H PRN PRN Reason: Pain, moderate (4-7) Last Admin: 09/02/17 22:10 Dose: 650 mg Alprazolam (Xanax) 0.5 mg PO TID PRN; Protocol PRN Reason: Anxiety Last Admin: 09/12/17 15:25 Dose: 0.5 mg Artificial Tears (Refresh Opth Soln) 0.3 ml OU Q8H PRN PRN Reason: Dry eyes Furosemide (Lasix) 20 mg IVP Q12 ERNESTINA Last Admin: 09/12/17 21:07 Dose: 20 mg Gabapentin (Neurontin) 100 mg PO HS ERNESTINA PRN Reason: Protocol Last Admin: 09/12/17 21:07 Dose: 100 mg Heparin Sodium (Porcine) (Heparin) 5,000 units SC Q8 ERNESTINA PRN Reason: Protocol Last Admin: 09/12/17 21:07 Dose: 5,000 units Levalbuterol HCl (Xopenex) 1.25 mg IH [id number] [facility] Last Admin: 09/12/17 14:04 Dose: 1.25 mg Methylprednisolone (Solu-Medrol) 30 mg IVP Q12 [facility] Last Admin: 09/12/17 21:08 Dose: 30 mg Montelukast Sodium (Singulair) 10 mg PO HS [facility] Last Admin: 09/12/17 21:07 Dose: 10 mg Oxycodone HCl (Oxycodone Immediate Release Tab) 15 mg PO Q4H PRN PRN Reason: Pain, severe (8-10) Last Admin: 09/12/17 19:57 Dose: 15 mg Pantoprazole Sodium (Protonix Inj) 40 mg IVP Q12 [facility] Last Admin: 09/12/17 21:06 Dose: 40 mg Roflumilast (Daliresp) 500 mcg PO DAILY [facility] Last Admin: 09/12/17 10:40 Dose: 500 mcg Sotalol HCl (Betapace) 120 mg PO BID [facility] Last Admin: 09/12/17 17:06 Dose: 120 mg Tizanidine HCl (Zanaflex) 4 mg PO TID [facility] Last Admin: 09/12/17 17:06 Dose: 4 mg - Labs Labs: 09/12/17 07:40 09/12/17 07:40 PT 11.4 SECONDS (9.4-12.5) 09/04/17 09:30 INR 0.99 (0.93-1.08) 09/04/17 09:30 APTT 21.6 Seconds (25.1-36.5) L 09/04/17 09:30 Attending/Attestation - Attestation Notes (Text): This is an addendum to GI progress report dictated by Kiki Vega APN.The patient was seen and examined earlier. Medical records, lab studies, imagings were reviewed. Last 24 hours events reviewed. Agreed with the above treatment plan as outlined in Kiki Vega APN's notes the with the addition of the following 09/12/17 23:50
--- NOTE | 2017-09-12 16:38 | PN ---
DATE: 09/12/2017 REASON FOR CONSULTATION AND FOLLOWUP: Nonischemic cardiomyopathy; paroxysmal atrial fibrillation, status post radiofrequency ablation; rectal bleed; respiratory failure, intubated and now successfully extubated. SUBJECTIVE: The patient denies any chest pain, shortness of breath, or any palpitation. OBJECTIVE: GENERAL: Not in apparent distress. VITAL SIGNS: Temperature afebrile, heart rate 83, blood pressure 100/64. HEENT: PERRLA, extraocular muscles intact. NECK: Supple. No carotid bruit or thyromegaly. CHEST: Clear to auscultation. HEART: S1 and S2, regular. ABDOMEN: Soft. EXTREMITIES: Clubbing and cyanosis negative. LABORATORY DATA: Blood workup as follows: WBC 8, hemoglobin 11.9, hematocrit 38.6, and platelet count 345. Chemistry shows sodium 140, potassium 5.9, carbon dioxide 39, anion gap of 14. BUN 16, creatinine 0.5. IMPRESSION: History of paroxysmal atrial fibrillation, status post radiofrequency ablation; nonischemic cardiomyopathy, status post cardiac catheterization; chronic obstructive pulmonary disease exacerbation; bronchospasm; upper respiratory failure, intubated and successfully extubated. Most recent echo on 09/08/2017, showed ejection fraction borderline, systolic function reduced, mild tricuspid regurgitation, [id number] pulmonary hypertension. Admitted to rectal bleed. The patient was at home and came to the hospital with Eliquis, but is stopped because of the rectal bleed. I discussed with the resident. RECOMMENDATION: No anticoagulation because patient recently has history of rectal bleed, status post packed RBC transfusion. Continue sotalol. Continue DVT prophylaxis. Supplement electrolytes as needed. The patient has a history of narcotic abuse. We will follow with you. CVS status stable. Gentle diuretics to keep the patient in negative fluid balance. Monitor electrolytes. Thank you Dr. Bowman for providing us the opportunity in taking care of the patient, Demetrio Cano. Shaila Samuel MD
--- NOTE | 2017-09-12 21:58 | PN ---
DATE: SUBJECTIVE: Patient is 57 years old. Seen and examined, extubated, seems to be comfortable. No chest pain, no shortness of breath. No palpitation. PHYSICAL EXAMINATION: VITAL SIGNS: Patient is afebrile. Pulse 102, respirations 20, blood pressure 100/64. LUNGS: Bilateral decreased breath sounds. A few rhonchi, scattered. HEART: S1 and S2 audible. Regular rate and rhythm. ABDOMEN: Soft, obese, nontender. No rebound, no guarding. NEUROLOGIC: He is awake and alert, oriented. Communicative. Has generalized weakness. EXTREMITIES: Bilateral legs, he has muscular atrophy because of disuse, atrophy and because of being on steroids intermittently for long time. Bilateral legs, no edema. LABORATORY DATA: WBC is 8.0, hemoglobin 11.5, hematocrit 38, platelet of 345. CHEMISTRY: Sodium 143, potassium 5.0, chloride 96, CO2 of 39, BUN 16, creatinine 0.5. Blood sugar of 145. ASSESSMENT: 1. Status post chronic obstructive pulmonary disease exacerbation. 2. Respiratory failure, status post extubation. 3. Chronic anemia, iron deficiency. 4. Narcotic dependence. 5. Anxiety disorder. 6. Nonischemic cardiomyopathy. 7. Peptic ulcer disease. 8. Recent gastrointestinal bleed. 9. History of atrial fibrillation status post ablation and had been on Eliquis but that has been stopped. PLAN: Patient is being transferred to telemetry. He is on sotalol. We will continue montelukast. He is on DVT prophylaxis. He is getting Lasix, meropenem. Can tapered down the steroids from 40 to 30 mg and physical therapy evaluation has been requested. We will follow up with this patient in the a.m. Ross Bowman MD
[2017-09-13] MEDS: oxyCODONE 15 mg Immediate Release Tab PO PRN ×6 (00:07→21:18)
--- NOTE | 2017-09-13 00:26 | PN ---
DATE: 09/12/2017 SUBJECTIVE: The patient was seen in room 129, bed 3, early this morning. No fevers and no chills. He was doing, awake. PHYSICAL EXAMINATION: VITAL SIGNS: Temperature is 98, blood pressure is 92/50, respiratory rate of 18, heart rate of 104. HEENT: Unremarkable. LUNGS: Decreased breath sounds. HEART: Normal S1, S2. ABDOMEN: Soft, nontender. LABORATORY EXAMINATION: Reveals a white count of 8000, hemoglobin of 11, platelets of 345. BUN of 16, creatinine of 0.5 and procalcitonin 0.07. Urinalysis is noted and serology for influenza is negative. ASSESSMENT/PLAN: This is a 57-year-old male with severe sepsis, status post ventilatory dependent respiratory failure due to bilateral lower lobe healthcare associated with a possible small bowel obstruction, coronary artery disease, history of chronic congestive heart failure and atrial fibrillation. Day #5 of vancomycin and meropenem, would complete 4 to 7 days. The patient is much improved, afebrile. White count is normal. His procalcitonin is down. We will discontinue the vancomycin and the meropenem. No further antibiotics; however, the patient is at risk for developing nosocomial infections. Merrill Martinez MD
[2017-09-13] MEDS: Levalbuterol 1.25 MG/3 ML Inhal Soln UD IH SCH ×4 (01:40→20:20)
--- NOTE | 2017-09-13 02:03 | PN ---
DATE: 09/12/2017 REFERRING PHYSICIAN: Ross Bowman MD SUBJECTIVE: He is lying in the bed at 45 degrees, slowly improving, decrease shortness of breath and cough. No nausea, no vomiting. No diarrhea, pain, leg swelling; been up in the chair today. OBJECTIVE: GENERA: In no acute distress. VITAL SIGNS: Temperature is 98, heart rate is 120, respiratory rate is 20, blood pressure 136/53, pulse ox 100% on high-flow nasal cannula. HEENT: Moist mucous membranes. Crowded airway. NECK: Supple. No JVD. LUNGS: Have a scattered rhonchi, crackles, wheezing. HEART: S1 and S2. ABDOMEN: Soft, nontender, no organomegaly. EXTREMITIES: There is no edema. NEUROLOGIC: Awake and alert, follows simple commands. MEDICATIONS: He is on Betapace 120 mg twice daily, Daliresp 5 mcg daily, heparin 5000 subcu q. 8 hour, Lasix 20 mg twice a day, gabapentin 100 mg at bedtime, oxycodone immediate release 50 mg q.4h. p.r.n., Protonix 40 mg twice a day, Singulair 10 mg daily, Solu-Medrol 30 mg q.12h., Tylenol p.r.n. basis, Xanax 0.5 mg three times a day p.r.n., Xopenex inhaled q.6h., Zanaflex 4 mg three times a day. LABORATORY DATA: Shows, hemoglobin 11.5, hematocrit 38.6, WBC 8.0, platelet is 345. ABG show pH 7.44, pCO2 of 62, O2 90% - this is on high-flow nasal cannula. Sodium 143, potassium 5.0, chloride 96, bicarbonate 39, BUN 16, creatinine 0.5, glucose is 145, calcium 9.5, AST 25, ALT is 40, alk phos is 93. Albumin is 3.4. Chest x-ray done today shows by basilar segmental atelectasis, otherwise unremarkable. IMPRESSION AND PLAN: Respiratory failure requiring ventilation, presently liberated from the ventilator on high-flow nasal cannula, requiring bilevel positive airway pressure at night and chronic obstructive lung disease. There is a component of cardiomyopathy with heart failure, atelectasis, pulmonary fibrosis, hypertension, anemia, vertebral compression fracture, atrial fibrillation, activities of daily living dysfunction. Case discussed with nursing staff, also spoke to speech and respiratory therapist. Will continue diuretics IV bronchodilator, gastric prophylaxis. CT to lower extremity, out of bed to chair, physical therapy. Follow up labs in the morning. Thank you and we will follow with you. Shaila Mercado MD
[2017-09-13 07:17] LABS: ARTERIAL BLOOD GAS HEMOGLOBIN 10.4 g/dL (11.7-17.4); ARTERIAL BLOOD GAS O2 CAPACITY 14.3 mL/dl (16-24); ARTERIAL BLOOD GAS O2 CONTENT 13.2 ML/dl (15-23); ARTERIAL BLOOD GAS O2 SAT 92.1 % (95-98); ARTERIAL BLOOD GAS PCO2 54 mm/Hg (35-45); ARTERIAL BLOOD GAS PH 7.48 (7.35-7.45); ARTERIAL BLOOD GAS TCO2 41.9 mmol.L (22-28)
[2017-09-13 07:18] LABS: HEMOGLOBIN 11.6 g/dL (14.0-18.0); MEAN CELL VOLUME 90.3 fl (80.0-105.0); MEAN CORPUSCULAR HEMOGLOBIN 26.7 pg (25.0-35.0); MEAN CORPUSCULAR HGB CONC 29.5 g/dl (31.0-37.0); MEAN PLATELET VOLUME 9.7 fl (7.0-11.0); RBC 4.35 10^6/uL (3.5-6.1); RED CELL DISTRIBUTION WIDTH 18.2 % (11.5-14.5); WHITE BLOOD COUNT 10.5 10^3/ul (4.5-11.0)
[2017-09-13 07:21] LABS: ARTERIAL BLOOD GAS HCO3 40.2 mmol/L (21-28)
[2017-09-13 07:35] LABS: ALB/GLOB RATIO 1.3 (1.1-1.8); ALBUMIN 3.4 g/dL (3.0-4.8); ALT/SGPT 40 U/L (7-56); AST/SGOT 23 U/L (17-59); BLOOD UREA NITROGEN 17 mg/dL (7-21); CALCIUM 9.4 mg/dL (8.4-10.5); GFR AFRICAN-AMERICAN > 60; GFR NON-AFRICAN AMERICAN > 60
[2017-09-13] MEDS ORDERED: Potassium Chloride 20 mEq ER Tab PO ONE (09:36)
[2017-09-13] MEDS: MethylPREDNISolone 40 mg Vial IVP SCH ×2 (10:00→21:19)
--- NOTE | 2017-09-13 12:22 | CP.PCM.PN ---
<Kiki Vega - Last Filed: 09/13/17 12:21> Subjective - Date & Time of Evaluation Date of Evaluation: 09/13/17 Time of Evaluation: 09:45 - Subjective Subjective: S&E at bedside earlier today, chart reviewed, no complaints of N/V or abdominal pain. No respiratory distress, tolerating well diet. No acute overnight events. Last BM yesterday. Was hypotensive this am. Objective - Vital Signs/Intake and Output Vital Signs (last 24 hours): Temp Pulse Resp BP Pulse Ox 98.3 F 99 H 15 132/75 93 L 09/12/17 04:00 09/13/17 10:00 09/13/17 10:00 09/13/17 10:01 09/13/17 10:00 - Medications Medications: Current Medications Acetaminophen (Tylenol 325mg Tab) 650 mg PO Q6H PRN PRN Reason: Pain, moderate (4-7) Last Admin: 09/02/17 22:10 Dose: 650 mg Alprazolam (Xanax) 0.5 mg PO TID PRN; Protocol PRN Reason: Anxiety Last Admin: 09/13/17 07:53 Dose: 0.5 mg Artificial Tears (Refresh Opth Soln) 0.3 ml OU Q8H PRN PRN Reason: Dry eyes Furosemide (Lasix) 20 mg IVP Q12 [facility] Last Admin: 09/13/17 10:01 Dose: 20 mg Gabapentin (Neurontin) 100 mg PO HS ERNESTINA PRN Reason: Protocol Last Admin: 09/12/17 21:07 Dose: 100 mg Heparin Sodium (Porcine) (Heparin) 5,000 units SC Q8 ERNESTINA PRN Reason: Protocol Last Admin: 09/13/17 05:57 Dose: 5,000 units Levalbuterol HCl (Xopenex) 1.25 mg IH [id number] [facility] Last Admin: 09/13/17 08:30 Dose: 1.25 mg Methylprednisolone (Solu-Medrol) 30 mg IVP Q12 [facility]NEST[facility] Last Admin: 09/13/17 10:00 Dose: 30 mg Montelukast Sodium (Singulair) 10 mg PO HS [facility] Last Admin: 09/12/17 21:07 Dose: 10 mg Oxycodone HCl (Oxycodone Immediate Release Tab) 15 mg PO Q4H PRN PRN Reason: Pain, severe (8-10) Last Admin: 09/13/17 08:26 Dose: 15 mg Pantoprazole Sodium (Protonix Inj) 40 mg IVP Q12 [facility] Last Admin: 09/13/17 09:58 Dose: 40 mg Roflumilast (Daliresp) 500 mcg PO DAILY [facility] Last Admin: 09/13/17 10:00 Dose: 500 mcg Sotalol HCl (Betapace) 120 mg PO BID [facility] Last Admin: 09/13/17 09:58 Dose: 120 mg Tizanidine HCl (Zanaflex) 4 mg PO TID [facility] Last Admin: 09/13/17 10:01 Dose: 4 mg - Labs Labs: 09/13/17 05:30 09/13/17 05:30 PT 11.4 SECONDS (9.4-12.5) 09/04/17 09:30 INR 0.99 (0.93-1.08) 09/04/17 09:30 APTT 21.6 Seconds (25.1-36.5) L 09/04/17 09:30 - Constitutional Appears: No Acute Distress - Head Exam Head Exam: NORMOCEPHALIC - Eye Exam Eye Exam: Normal appearance. absent: Scleral icterus - ENT Exam ENT Exam: Mucous Membranes Moist - Neck Exam Neck Exam: Normal Inspection - Respiratory Exam Respiratory Exam: Rhonchi, NORMAL BREATHING PATTERN. absent: Respiratory Distress - Cardiovascular Exam Cardiovascular Exam: +S1, +S2 - GI/Abdominal Exam GI & Abdominal Exam: Soft, Normal Bowel Sounds. absent: Guarding, Tenderness, Rebound - Extremities Exam Extremities Exam: Normal Capillary Refill. absent: Calf Tenderness, Pedal Edema - Neurological Exam Neurological Exam: Alert, Awake, Oriented x3 - Skin Skin Exam: Dry, Warm Assessment and Plan - Assessment and Plan (Free Text) Assessment: Assessment: S/P Respiratory failure Resolved RUQ abdominal pain, may be r/t hepatic congestion,s/p US, "ovid gas adjacent to pancreas, abd xray reports: Dilated small bowel loops, ? obstruction ,status post CT scan no evidence of high-grade dysplasia but positive small bowel dilated loops Non-STEMI Acute exacerbation of COPD GI bleed, rectal bleed Anemia status post 2 units of packed RBCs total Urinary tract infection History of chronic atrial fibrillation, status post cardiac ablation Plan: Monitor H&H , GI bleed and transfuse as necessary Continue Protonix twice a day off antibiotics On Solu-Medrol on Heparin SQ ,dvt prophlaxsis advacne diet to soft low residual diet Consider endoscopy when patient is cardiopulmonary stable. Seen and discussed with Dr. Bansal. <Felicia Bansal V - Last Filed: 09/13/17 23:13> Objective - Vital Signs/Intake and Output Vital Signs (last 24 hours): Temp Pulse Resp BP Pulse Ox 98.6 F 71 20 86/55 L 96 09/13/17 18:00 09/13/17 21:06 09/13/17 21:06 09/13/17 21:16 09/13/17 21:06 - Labs Labs: 09/13/17 05:30 09/13/17 05:30 PT 11.4 SECONDS (9.4-12.5) 09/04/17 09:30 INR 0.99 (0.93-1.08) 09/04/17 09:30 APTT 21.6 Seconds (25.1-36.5) L 09/04/17 09:30 Attending/Attestation - Attestation I have personally seen and examined this patient.: Yes I have fully participated in the care of the patient.: Yes I have reviewed all pertinent clinical information, including history, physical exam and plan: Yes Notes (Text): This is an addendum to GI progress report dictated by Kiki Vega APN.The patient was seen and examined earlier. Medical records, lab studies, imagings were reviewed. Last 24 hours events reviewed. Agreed with the above treatment plan as outlined in Kiki Vega APN's notes the with the addition of the following 09/13/17 23:13
--- NOTE | 2017-09-13 13:08 | PN ---
DATE: REASON FOR CONSULTATION AND FOLLOWUP: Nonischemic cardiomyopathy with paroxysmal atrial fibrillation, status post radiofrequency ablation; rectal bleed; respiratory failure, intubated and now successfully extubated. SUBJECTIVE: The patient denies any chest pain, shortness of breath, or any palpitation. OBJECTIVE GENERAL: Not in apparent distress. VITAL SIGNS: Temperature afebrile, heart rate 70, blood pressure 93/53. HEENT: PERRLA, intact. NECK: Supple. No carotid bruit or thyromegaly. CHEST: Clear to auscultation. HEART: S1, S2, regular. ABDOMEN: Soft. EXTREMITIES: Clubbing and cyanosis negative. LABORATORY DATA: Blood workup as follows: WBC , hemoglobin , hematocrit 39.3, platelet count 366,000. Chemistry shows sodium 140, potassium 3.4, chloride , creatinine of 0.5. IMPRESSION: Hypokalemia; chronic obstructive pulmonary disease exacerbation; narcotic dependence; nonischemic cardiomyopathy; paroxysmal atrial fibrillation, status post radiofrequency ablation, recommended not on anticoagulation because of the patient's recent history of rectal bleed. The patient came in on Eliquis, but held because of the rectal bleed. Very briefly, the patient on this admission went into atrial fibrillation, converted to normal sinus during intubation, off anticoagulation again. We will continue off anticoagulation. As mentioned, discussed with the resident. Continue sotalol. Continue deep venous thrombosis prophylaxis. Supplement electrolytes as needed. Discharge planning. Thank you Dr. Bowman for providing us the opportunity in taking care of the patient, Mr. Cano. We will supplement potassium. Shaila Samuel MD
[2017-09-13 18:05] VITALS: TEMP 98.6
--- NOTE | 2017-09-13 18:40 | PN ---
DATE: 09/13/2017 SUBJECTIVE: Patient is in bed, in no acute distress, nontoxic. PHYSICAL EXAMINATION: VITAL SIGNS: Temperature is 98, blood pressure is 130/70, respiratory rate of 18, heart rate of 98. HEENT: Unremarkable. NECK: Supple. LUNGS: Have decreased breath sounds. HEART: Normal S1, S2. ABDOMEN: Soft, nontender. LABORATORY EXAMINATION: Reveals a white count of 10,000, hemoglobin of 11. Chemistries reveal the BUN of 17, creatinine of 0.7. Review of orders reveals the patient to be on Solu-Medrol. The patient is not on any antibiotics. ASSESSMENT AND PLAN: This is a 57-year-old male with severe sepsis, status post ventilatory-dependent respiratory failure due to bilateral lower healthcare-associated and possible small bowel obstruction, coronary artery disease, history of chronic congestive heart failure, and atrial fibrillation. Day #5 of vancomycin and meropenem, currently now off of antibiotics, afebrile, and the patient is at risk for developing nosocomial infection. Patient was seen early this morning in [facility], bed 5, doing well. Merrill Martinez MD
[2017-09-13 21:20] VITALS: BP 86/55
[2017-09-13 21:40] VITALS: PULSE 71; RESP 20; O2SAT 96
--- NOTE | 2017-09-14 05:57 | PN ---
PULMONARY PROGRESS NOTE DATE: 09/13/2017 REFERRING PHYSICIAN: Ross Bowman MD SUBJECTIVE: He is lying in the recliner chair in Intensive Care Unit on high flow nasal cannula oxygen. Feels better, decreased cough, decreased shortness of breath. No nausea, no vomiting. No diarrhea. No leg pain or leg swelling. OBJECTIVE: GENERAL: In no acute distress. VITAL SIGNS: Temperature is 98, heart rate is 71, respiratory rate is 20, blood pressure 86/55, pulse ox 96% on high-flow nasal cannula. HEENT: Moist mucous membranes. Crowded airway. Mallampati score is IV. NECK: Supple. No JVD. LUNGS: Improved airflow, decreased crackles, still wheezing. HEART: S1 and S2. ABDOMEN: Soft, nontender, no organomegaly. EXTREMITIES: There is no edema. NEUROLOGIC: Awake and alert, follows simple commands. MEDICATIONS: Reviewed. No new changes in medication reported since yesterday. LABORATORY DATA: Revealed hemoglobin 11.6, hematocrit 39.3, WBC 10.5, platelet count is 366, blood gases show pH 7.48, PCO2 of 54, O2 of 55, this is on a liter of high-flow nasal cannula oxygen. Sodium 142, potassium 3.4, chloride 92, bicarbonate 40, BUN 17, creatinine 0.5. Glucose 162, calcium is 9.5. AST 23, ALT 40, alkaline phosphatase is 88, albumin is 3.4. IMPRESSION AND PLAN: Respiratory failure requiring noninvasive ventilation and high-flow oxygen during the daytime, chronic obstructive lung disease, component of heart failure with cardiomyopathy, atelectasis, pulmonary fibrosis, hypertension, anemia, vertebral compression fracture, atrial fibrillation. Spoke to Press Breaker. Spoke to nursing staff. the patient being discharge to long-term acute care type of services, could go there on noninvasive ventilation. Continue diuretics. Continue intravenous and inhaled bronchodilator, antibiotics, gastric prophylaxis. Heating to lower extremity, needs aggressive physical therapy. Critical care time: More than 35 minutes. Shaila Mercaod MD
--- NOTE | 2017-09-14 08:49 | PN ---
DATE: 09/13/2017 SUBJECTIVE: The patient is a 57-year-old white male, who was seen today seated for the first time and in the presence of his and son. He has been treated for severe sepsis, status post ventilatory-dependent respiratory failure due to bilateral lower pneumonia, possible small bowel obstruction, coronary artery disease, history of congestive heart failure and atrial fibrillation. He is complaining about the food. He informs me that he is going to a rehab facility with the Social Work noting that he will be going to [facility]. He is presently taking Betapace 120 mg b.i.d., Daliresp 500 mcg daily, heparin 5000 units subcu q. 8 hours, Lasix 20 mg IV push q. 12 hours, Neurontin 100 mg at bedtime, oxycodone 15 mg q. 4 hours p.r.n., Protonix 40 mg IV push q. 12 hours, artificial tears 0.3 mL daily, Singulair 10 mg at bedtime, Solu-Medrol 30 mg IV push q. 12 hours, Xanax 0.5 t.i.d. p.r.n. and Xopenex 1.25 mg q. 6 hours and Zanaflex 4 mg t.i.d. CBC and differential today show lowered hemoglobin 11.6, hematocrit 39.3. Biochemical profile shows lower potassium of 3.4, creatinine 0.5, elevated glucose 162. Gamal Lee MD/ PhD
[2017-09-14] MEDS ORDERED: Lubricant Eye Drops UD OU SCH (10:00)
--- NOTE | 2017-09-14 18:26 | DS ---
HISTORY OF PRESENT ILLNESS: The patient is a 57-year-old, seen and examined, sitting in chair, mild shortness of breath, awake, alert, oriented, complaint of generalized weakness, complaint of difficulty walking. The patient states that he has developed muscular atrophy because of being on steroid and was . The patient was initially admitted because of GI bleed secondary to Eliquis that has been stopped. The patient has chronic AFib, had ablation done in [place] and was supposed to be on Eliquis for a month, but he started to have lower GI bleed, so Eliquis is stopped and currently not on anticoagulation. PHYSICAL EXAMINATION: GENERAL: He is doing well except generalized weakness. VITAL SIGNS: He is afebrile, pulse 87, respirations 21, blood pressure 107/55. LUNGS: Bilateral diffusely decreased breath sounds. HEART: S1 and S2 audible. ABDOMEN: Soft, obese, nontender. No rebound. No guarding. NEUROLOGIC: The patient is awake, alert, and oriented. Generalized weakness. LABORATORY DATA: WBC is 10.5, hemoglobin 11.6, hematocrit 39.3, platelet of 366. Chemistry: Sodium 142, potassium 3.4, chloride 92, CO2 of 40, BUN 17, creatinine 0.5, blood sugar of 162. Flu test is negative. ASSESSMENT: 1. Status post gastrointestinal bleed. 2. History of atrial fibrillation, but currently in sinus rhythm. 3. Chronic obstructive pulmonary disease. 4. Non-ischemic cardiomyopathy. 5. Status post respiratory failure and extubation. 6. Generalized weakness and muscular atrophy. PLAN: The patient is clinically stable and can be transferred to LTAC. I will continue him on sotalol. He is on Daliresp. He is on potassium supplementation. He is on Lasix 20 q. 12. I will maintain him on oxycodone, Protonix, Xanax, and Xopenex. He can be transferred to LTAC where he will be followed with . Ross Bowman MD
== END 2017-09-13 22:14 | DRG 208 ==
LOC: ED 09:05 → ERH 12:01 → CCU 12:36
PROVIDERS: ADMIT Internal Medicine; ATTEND Internal Medicine
PROC: 5A09457 Assistance with Respiratory Ventilation, 24-96 Consecutive Hours, Continuous Positive Airway Pressure (ICD-10-PCS; 2017-09-02)
PROC: 3E0F7GC Introduction of Other Therapeutic Substance into Respiratory Tract, Via Natural or Artificial Opening (ICD-10-PCS; 2017-09-02)
PROC: 5A1945Z Respiratory Ventilation, 24-96 Consecutive Hours (ICD-10-PCS; principal; 2017-09-08)
PROC: 05HY33Z Insertion of Infusion Device into Upper Vein, Percutaneous Approach (ICD-10-PCS; 2017-09-08)
PROC: 0BH17EZ Insertion of Endotracheal Airway into Trachea, Via Natural or Artificial Opening (ICD-10-PCS; 2017-09-08)
DX: J44.1 Chronic obstructive pulmonary disease with (acute) exacerbation (principal); R65.20 Severe sepsis without septic shock; J96.11 Chronic respiratory failure with hypoxia; J96.12 Chronic respiratory failure with hypercapnia; J18.9 Pneumonia, unspecified organism; A41.9 Sepsis, unspecified organism; K55.21 Angiodysplasia of colon with hemorrhage; I42.8 Other cardiomyopathies; F11.20 Opioid dependence, uncomplicated; N39.0 Urinary tract infection, site not specified; M48.54XA Collapsed vertebra, not elsewhere classified, thoracic region, initial encounter for fracture; J98.11 Atelectasis; I11.0 Hypertensive heart disease with heart failure; I27.20 Pulmonary hypertension, unspecified; J84.10 Pulmonary fibrosis, unspecified; I50.9 Heart failure, unspecified; I48.2 Chronic atrial fibrillation; I25.10 Atherosclerotic heart disease of native coronary artery without angina pectoris; G89.4 Chronic pain syndrome; D50.0 Iron deficiency anemia secondary to blood loss (chronic); F06.4 Anxiety disorder due to known physiological condition; E87.6 Hypokalemia; B96.89 Other specified bacterial agents as the cause of diseases classified elsewhere; K21.9 Gastro-esophageal reflux disease without esophagitis; Z99.81 Dependence on supplemental oxygen; M81.0 Age-related osteoporosis without current pathological fracture; J98.01 Acute bronchospasm; J44.0 Chronic obstructive pulmonary disease with (acute) lower respiratory infection; I36.1 Nonrheumatic tricuspid (valve) insufficiency; K27.9 Peptic ulcer, site unspecified, unspecified as acute or chronic, without hemorrhage or perforation; K59.00 Constipation, unspecified; K64.9 Unspecified hemorrhoids; I25.2 Old myocardial infarction; Z79.01 Long term (current) use of anticoagulants; Z79.52 Long term (current) use of systemic steroids; Z86.718 Personal history of other venous thrombosis and embolism; Z79.82 Long term (current) use of aspirin

== ENCOUNTER 2017-12-28 03:56 | Inpatient (IN) | payer MEDICARE, MEDICAID ==
[2017-12-28 03:57] VITALS: PULSE 91
[2017-12-28 04:11] VITALS: BMI 24.3
[2017-12-28] MEDS ORDERED: Albuterol 0.083% Inhal Sol (2.5 mg/3 mL) UD INH STA (04:38)
[2017-12-28] MEDS ORDERED: Albuterol-Ipratrop 3 mg / 0.5 (3 ml) UD IH STA (04:38)
[2017-12-28 04:42] LABS: VENOUS BLOOD GAS BASE EXCESS 11.5 mmol/L (0.0-2.0); VENOUS BLOOD GAS PO2 26 mm/Hg (30-55); VENOUS BLOOD PH 7.39 (7.32-7.43)
[2017-12-28 04:51] LABS: ALB/GLOB RATIO 1.5 (1.1-1.8); ALBUMIN 3.8 g/dL (3.0-4.8); ALT/SGPT 32 U/L (7-56); AST/SGOT 32 U/L (17-59); BLOOD UREA NITROGEN 11 mg/dL (7-21); CALCIUM 9.3 mg/dL (8.4-10.5); GFR AFRICAN-AMERICAN > 60; GFR NON-AFRICAN AMERICAN > 60
[2017-12-28 04:58] LABS: BASO # 0.05 K/mm3 (0.0-2.0); BASO % 0.6 % (0.0-3.0); EOS # 0.2 (0.0-0.7); EOS % 2.7 % (1.5-5.0); GRAN # 6.11 (1.4-6.5); HEMOGLOBIN 10.5 g/dL (14.0-18.0); INR 0.93 (0.93-1.08); LYMPH # 1.1 (1.2-3.4); MEAN CORPUSCULAR HEMOGLOBIN 24.1 pg (25.0-35.0); MEAN CORPUSCULAR HGB CONC 30.7 g/dl (31.0-37.0); MEAN PLATELET VOLUME 10.5 fl (7.0-11.0); MONO # 0.7 (0.1-0.6); MONO % 8.7 % (1.0-6.0); PROTHROMBIN TIME 10.6 SECONDS (9.4-12.5); RBC 4.35 10^6/uL (3.5-6.1); RED CELL DISTRIBUTION WIDTH 14.8 % (11.5-14.5); WHITE BLOOD COUNT 8.2 10^3/ul (4.5-11.0)
[2017-12-28 04:59] LABS: MEAN CELL VOLUME 78.6 fl (80.0-105.0)
--- NOTE | 2017-12-28 05:01 | ED PDOC ---
Arrival/HPI - General Chief Complaint: Palpitations Time Seen by Provider: 12/28/17 04:11 Historian: Patient, Family - History of Present Illness Narrative History of Present Illness (Text): 12/28/17 04:50 57 year old male, whose past medical history includes COPD, paroxysmal atrial fibrillation status post ablation, CHF, CAD, NE, Hypertension, and chronic back pain, presents to the emergency department complaining of rapid hear rate that began today. Patient was just discharged from a 6 month rehab program after being admitted for respiratory distress and chest pain. Patient had a transfusion from blood loss situation due to hemorrhoids which the transfusion led to CHF and being placed in the CCU for a couple of week. Patient then was sent to rehab due to being too weak to move. Patient was discharged from rehab 7 days ago. Patient denies any fever, chills, chest pain, shortness of breath, abdominal pain, nausea, vomiting, diarrhea, urinary symptoms, back pain, neck pain, headache, dizziness, or any other complaints. PMD: Dr. Bowman Outcomes Specialist: Dr. Love Time/Duration: Other (tonight) Symptom Onset: Sudden Symptom Course: Unchanged Activities at Onset: Light Context: Home Past Medical History - Provider Review Nursing Documentation Reviewed: Yes - Past History Past History: No Previous - Infectious Disease Hx of Infectious Diseases: None - Tetanus Immunization Tetanus Immunization: Unknown - Past Medical History Past Medical History: Non-Contributing - Cardiac Hx Congestive Heart Failure: Yes Hx Hypertension: Yes Other/Comment: Cardiac ablation for Afib jun 30 2017 - Pulmonary Hx Chronic Obstructive Pulmonary Disease (COPD): Yes (O2 at home) Hx Emphysema: Yes - Neurological Hx Neurological Disorder: No - HEENT Hx HEENT Disorder: Yes (CONTACTS,WEARS RX GLASSES AT TIMES,H/O OF NOSEBLEEDS) Other/Comment: nosebleeds - Renal Hx Renal Disorder: No - Endocrine/Metabolic Hx Diabetes Mellitus Type 2: Yes - Hematological/Oncological Hx Cancer: No - Integumentary Other/Comment: tatoo r arm - Musculoskeletal/Rheumatological Hx Falls: No Hx Spinal Stenosis: Yes - Gastrointestinal Hx Gastrointestinal Disorders: Yes (appendectomy,colon sx,gerd) - Genitourinary/Gynecological Hx Genitourinary Disorders: No Hx Reproductive Disorders: No - Psychiatric Hx Anxiety: Yes Hx Substance Use: No - Past Surgical History Past Surgical History: Non-Contributing - Surgical History Hx Mastectomy: No - Anesthesia Hx Anesthesia: Yes Hx Anesthesia Reactions: No Hx Malignant Hyperthermia: No - Suicidal Assessment Feels Threatened In Home Enviroment: No Family/Social History - Physician Review Nursing Documentation Reviewed: Yes Family/Social History: No Known Family HX Smoking Status: Former Smoker Hx Alcohol Use: No Hx Substance Use: No 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 Hx Substance Use Treatment: Yes Allergies/Home Meds Allergies/Adverse Reactions: Allergies No Known Allergies Allergy (Verified 12/28/17 04:16) Home Medications: Home Meds Medication Instructions Recorded Confirmed Alprazolam [Xanax] 0.5 mg PO BID 08/13/17 12/28/17 Apixaban [Eliquis] 5 mg PO BID 08/13/17 09/02/17 Aspirin [Adult Aspirin Regimen] 81 mg PO DAILY 08/13/17 09/02/17 Furosemide [Lasix] 40 mg PO DAILY 08/13/17 12/28/17 Linaclotide [Linzess] 72 mcg PO DAILY 08/13/17 09/02/17 Oxycodone HCl [Oxycontin] 20 mg PO BID 08/13/17 12/28/17 Potassium Chloride [Klor-Con 10 meq PO DAILY 08/13/17 09/02/17 Sprinkle] Roflumilast [Daliresp] 500 mcg PO DAILY 08/13/17 12/28/17 Sotalol [Betapace] 120 mg PO BID 08/13/17 12/28/17 predniSONE [Prednisone] 5 mg PO BID 08/13/17 12/28/17 Ferrous Sulfate [Feosol] 325 mg PO BID 09/02/17 09/02/17 Pantoprazole [Protonix] 40 mg PO DAILY 09/02/17 12/28/17 tiZANidine [Zanaflex] 4 mg PO DAILY 09/02/17 09/02/17 Montelukast [Singulair] 10 mg PO DAILY 12/28/17 12/28/17 Tiotropium [Spiriva] 18 mcg PO DAILY 12/28/17 12/28/17 Review of Systems - Physician Review All systems were reviewed & negative as marked: Yes - Review of Systems Constitutional: absent: Fevers, Other (Chills) Respiratory: absent: SOB Cardiovascular: Other (rapid heart rate). absent: Chest Pain Gastrointestinal: absent: Abdominal Pain, Constipation, Diarrhea, Nausea Genitourinary Male: absent: Dysuria, Frequency, Hematuria Musculoskeletal: absent: Back Pain, Neck Pain Neurological: absent: Headache, Dizziness Physical Exam Vital Signs Reviewed: Yes Vital Signs Pulse Resp BP Pulse Ox 12/28/17 04:16 104 H 18 108/68 96 Blood Pressure: Normal Pulse: Tachycardic Respiratory Rate: Normal Appearance: Positive for: Well-Appearing, Non-Toxic, Comfortable Pain Distress: None Mental Status: Positive for: Alert and Oriented X 3, other (anxious) - Systems Exam Head: Present: Atraumatic, Normocephalic Pupils: Present: PERRL Extroacular Muscles: Present: EOMI Conjunctiva: Present: Normal Mouth: Present: Moist Mucous Membranes Neck: Present: JVD (some JVD) Respiratory/Chest: Present: Clear to Auscultation, Good Air Exchange. No: Respiratory Distress, Accessory Muscle Use Cardiovascular: Present: Regular Rate and Rhythm, Normal S1, S2. No: Murmurs Abdomen: No: Tenderness, Distention, Peritoneal Signs Back: Present: Normal Inspection Upper Extremity: Present: Normal Inspection. No: Cyanosis, Edema Lower Extremity: Present: Normal Inspection. No: Edema Neurological: Present: GCS=15, CN II-XII Intact, Speech Normal Skin: Present: Warm, Dry, Normal Color. No: Rashes Psychiatric: Present: Alert, Oriented x 3, Normal Insight, Normal Concentration , Anxious Medical Decision Making ED Course and Treatment: 12/28/17 04:30 Impression: 57 year old male presents complaining of rapid heart rate that began tonight. Plan: -- VBG -- Labs -- Chest X-Ray -- Albuterol, Duoneb -- Blood Culture -- EKG -- Reassess and disposition Prior Visits: Notes and results from previous visits were reviewed. On 09/02/17 patient came in complaining of worsening shortness of breath. Patient was admitted. Progress Notes: 12/28/17 05:54 CXR Impression: As read by me, COPD. Bilateral hemodiaphragm. Elevated hemodiaphragm atelectasis EKG: Ordered, reviewed, and independently interpreted the EKG. Rate : 103 BPM Rhythm : Sinus Tachycardia Interpretation : incomplete RBBB. Inferior infarct Comparison : No previous EKG for comparison. 12/28/17 06:[address] Bowman who is aware and agrees with the plan. Accepts patient into her service. - Lab Interpretations Lab Results: 12/28/17 04:03 12/28/17 04:03 Lab Results 12/28/17 04:03: Sodium 143, Chloride 95 L, Potassium 3.2 L, Carbon Dioxide 37 H , Anion Gap 15, BUN 11, Creatinine 0.5 L, Est GFR ( Amer) > 60, Est GFR ( Non-Af Amer) > 60, Random Glucose 118 H, Calcium 9.3, Total Bilirubin 0.5, AST 32, ALT 32, Alkaline Phosphatase 94, Lactate Dehydrogenase 464, Total Creatine Kinase 25 L, Troponin I < 0.01, NT-Pro-B Natriuret Pep 821 H, Total Protein 6.4 , Albumin 3.8, Globulin 2.6, Albumin/Globulin Ratio 1.5 12/28/17 04:03: pO2 26 L, VBG pH 7.39, VBG pCO2 65.0 H, VBG HCO3 39.3 H, VBG Total CO2 41.3 H, VBG O2 Sat (Calc) 48.8, VBG Base Excess 11.5 H, VBG Potassium 3.1 L, Sodium 140.0, Chloride 95.0 L, Glucose 121 H, Lactate 1.4, FiO2 21.0, Venous Blood Potassium 3.1 L 12/28/17 04:03: PT 10.6, INR 0.93 12/28/17 04:03: WBC 8.2 D, RBC 4.35, Hgb 10.5 L, Hct 34.2 L, MCV 78.6 L D, MCH 24.1 L, MCHC 30.7 L, RDW 14.8 H, Plt Count 275, MPV 10.5, Gran % 75.0 H, Lymph % (Auto) 13.0 L, Fergus % (Auto) 8.7 H, Eos % (Auto) 2.7, Baso % (Auto) 0.6, Gran # 6.11, Lymph # (Auto) 1.1 L, Fergus # (Auto) 0.7 H, Eos # (Auto) 0.2, Baso # ( Auto) 0.05 I have reviewed the lab results: Yes - RAD Interpretation Radiology Orders: 12/28/17 04:12 CHEST PORTABLE [RAD] Stat - EKG Interpretation Interpreted by ED Physician: Yes Type: 12 lead EKG - Medication Orders Current Medication Orders: Ceftriaxone Sodium (Rocephin 1 Gram Ivpb) 1 gm in 100 mls @ 200 mls/hr IVPB STAT STA PRN Reason: Protocol Stop: 12/28/17 06:35 Last Admin: 12/28/17 06:15 Dose: 200 mls/hr eMAR Start Stop Document 12/28/17 06:15 IT (Rec: 12/28/17 06:16 IT [id number]) Intravenous Solution Start Date 12/28/17 Start Time 06:16 Azithromycin (Zithromax 500mg In Ns) 500 mg in 250 mls @ 167 mls/hr IVPB STAT STA PRN Reason: Protocol Stop: 12/28/17 07:35 Discontinued Medications Albuterol Sulfate (Albuterol 0.083% Inhal Brigida (2.5 Mg/3 Ml) Ud) 2.5 mg INH STAT STA Stop: 12/28/17 04:39 Last Admin: 12/28/17 04:58 Dose: 2.5 mg Albuterol/Ipratropium (Duoneb 3 Mg/0.5 Mg (3 Ml) Ud) 3 ml IH STAT STA Stop: 12/28/17 04:39 Last Admin: 12/28/17 04:58 Dose: 3 ml - Scribe Statement The provider has reviewed the documentation as recorded by the Rigoberto Castro Provider Scribe Attestation: All medical record entries made by the Rigoberto were at my direction and personally dictated by me. I have reviewed the chart and agree that the record accurately reflects my personal performance of the history, physical exam, medical decision making, and the department course for this patient. I have also personally directed, reviewed, and agree with the discharge instructions and disposition. Disposition/Present on Arrival - Present on Arrival Any Indicators Present on Arrival: No History of DVT/PE: No History of Uncontrolled Diabetes: No Urinary Catheter: No History of Decub. Ulcer: No History Surgical Site Infection Following: None - Disposition Have Diagnosis and Disposition been Completed?: Yes Diagnosis: Chronic obstructive pulmonary disease, Dyspnea, Palpitations, COPD exacerbation , Acute bronchitis Disposition: HOSPITALIZED Disposition Time: 06:24 Patient Plan: Admission, Telemetry Condition: FAIR
[2017-12-28 05:03] LABS: B-TYPE NATRIURETIC PEPTIDE 821 pg/mL (0-450); TROPONIN I < 0.01 ng/mL
[2017-12-28] MEDS ORDERED: Azithromycin 500MG/NS 250ml 500 MG/250 ML BAG IVPB STA (06:06)
[2017-12-28] MEDS ORDERED: cefTRIAXone 1 gm 1 GM/100 ML BAG IVPB STA (06:06)
--- NOTE | 2017-12-28 08:33 | RAD ---
HISTORY: Chest Pain COMPARISON: 09/12/2017 FINDINGS: LUNGS: No active pulmonary disease. PLEURA: No significant pleural effusion identified, no pneumothorax apparent. CARDIOVASCULAR: Normal. OSSEOUS STRUCTURES: No significant abnormalities. VISUALIZED UPPER ABDOMEN: Normal. OTHER FINDINGS: None. IMPRESSION: No active disease.
[2017-12-28] MEDS: Pantoprazole 40 mg EC Tab PO SCH (11:02)
[2017-12-28] MEDS: Potassium Chloride 10 mEq ER Tab PO SCH (11:02)
[2017-12-28] MEDS ORDERED: OXYCODONE HCL 20 MG PO SCH (11:45)
[2017-12-28] MEDS: oxyCODONE 20 mg ER Tab (oxyCONTIN) PO SCH ×2 (12:30→22:06)
[2017-12-28] MEDS: Levalbuterol 1.25 MG/3 ML Inhal Soln UD IH SCH ×2 (13:47→19:51)
[2017-12-28] MEDS ORDERED: Potassium Chloride 20 mEq ER Tab PO ONE (13:47)
--- NOTE | 2017-12-28 22:52 | HP ---
HISTORY OF PRESENT ILLNESS: The patient is 57-year-old, known to me from multiple previous admissions. Patient was admitted here in August with COPD exacerbation. At that point, he had rectal bleeding. He was in respiratory distress. He was intubated and extubated successfully, but he was very deconditioned, so he was transferred to LTAC in the town facility named [facility]. He remained there, received aggressive rehab, started to ambulate, but he got bacteremia. He was intubated. He was referred to medical center where he was treated with antibiotics. He was recently discharged from long-term acute care facility last . Patient states last night he became short of breath and he developed tachycardia, so then called ambulance and was brought to emergency room. Denies any fever or chills. Does complain of cough and congestion. PAST MEDICAL HISTORY: Significant for, 1. Hypotension now. 2. Congestive heart failure. 3. COPD. 4. History of AFib status post radiofrequency ablation in [facility]. 5. Chronic degenerative disk disease and opioid dependence. 6. Chronic anemia. Workup has been negative and capsule endoscopy was negative. 7. Anxiety disorder. ALLERGIES: NOT ALLERGIC TO ANY MEDICATIONS. MEDICATION AT HOME: He is on prednisone 5 mg twice a day, OxyContin 20 mg twice a day, Xanax 0.5 b.i.d., Daliresp 500 mcg daily, Singulair 10 mg daily, Spiriva daily, Protonix 40 daily, Lasix 40 daily, Zanaflex 4 mg at bedtime, potassium supplementation less than 72 mcg daily, aspirin 81 daily and Eliquis has been discontinued. SOCIAL HISTORY: He is , lives with his . History of smoking. Still smokes here and there 1 or 2 cigarettes; quit in 2012. He used to use marijuana. He used to drink, but not recently. REVIEW OF SYSTEMS: Significant for cough, congestion, shortness of breath. PHYSICAL EXAMINATION: GENERAL: He is awake, alert, oriented, communicative. VITAL SIGNS: He is afebrile, pulse 99, respirations 18, blood pressure 100/62. LUNGS: Bilateral good airflow. No rhonchi or crackles. HEART: S1 and S2 audible. ABDOMEN: Soft, obese, and nontender. No rebound. No guarding. NEUROLOGIC: Patient is awake and alert, communicative. LABORATORY DATA: WBC is 8.2, hemoglobin 10.5, hematocrit 34.2, platelets 275. PT 10.6, INR 0.93. Chemistry: Sodium 143, potassium 3.2, chloride , CO2 of 37, BUN 11, creatinine 0.5, blood sugar of 118. LFT's are within normal limits. BNP 621. ASSESSMENT: 1. Chronic obstructive pulmonary disease exacerbation. 2. Asthmatic bronchitis. 3. Sinus tachycardia. 4. Chronic back pain. 5. Chronic anemia. PLAN: We will restart patient on sotalol 120 mg twice a day, Daliresp, he is on nebulizer treatment. We will start him on Xopenex Lasix 40 IV daily and supplement potassium. Follow up electrolyte in a.m.. Cardiology consult and Pulmonary consult has been requested. Ross Bowman MD
--- NOTE | 2017-12-28 23:45 | CARD ---
APPROVED REPORT EKG Measurement Heart [id number] <Conclusion> Sinus tachycardia with premature atrial complexes with aberrant conduction Incomplete right bundle branch block Inferior infarct, age undetermined Abnormal ECG
--- NOTE | 2017-12-29 01:33 | CON ---
DATE: 12/28/2017 CARDIOLOGY CONSULTATION REASON FOR CONSULTATION: Sinus tachycardia; palpitation; history of AFib, status post radiofrequency ablation; COPD; CHF. BRIEF CLINICAL HISTORY: This is a 57-year-old male with a past medical history of COPD; paroxysmal atrial fibrillation, status post radiofrequency ablation in June. Then, patient was on anticoagulation and admitted with significant GI bleed, requiring 4 units of packed RBCs and was intubated at that time. Later on, patient was discharged to rehab from [place] and came back yesterday with complaint of low blood pressure and heart rate of 140 at home. So, patient called the ambulance and brought here. PAST MEDICAL HISTORY: Significant for atrial fibrillation, status post radiofrequency ablation in June, status post cardiac cath, nonobstructive coronary artery disease. Cardiac cath in 11/2013, patient presented with non-STEMI, history of COPD, history of cardiomyopathy. History of recently admitted with sepsis, also patient had a PICC line and went to the rehab where the patient developed sepsis and was admitted to [facility] for full-blown sepsis and later on treated with IV antibiotic and removal of the line. 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 Later on, the MUGA scan shows ejection fraction significant improved at 54%. At that time as mentioned above, patient had non-STEMI most likely secondary to thrombus sent from the LV to coronaries. Last MUGA scan shows ejection fraction in 04/2014, 65% where as in 10/2013, is 54%. Most recently echo, patient on 06/01/2017, that shows a borderline LV function within normal limit, mild pulmonary hypertension. This time, the patient was being followed by other security officer as well. Patient had last echo done in [facility] on 09/08/2017, read by Dr. Garg that shows normal LV thickness, systolic function borderline, RV systolic pressure moderately reduced. There is a mild tricuspid regurgitation, [id number] pulmonary hypertension. No mitral valve regurgitation noted and a calculated ejection fraction of 48% with a calculated RV systolic pressure of 47%. Past history also significant for lumbar radiculopathy secondary to spinal disease. SOCIAL HISTORY: Denies any history of alcohol abuse, quit smoking. REVIEW OF SYSTEMS: As per HPI. PHYSICAL EXAMINATION: As follows: VITAL SIGNS: Temperature afebrile, heart rate 101, blood pressure 104/68. HEENT: PERRLA. Extraocular muscles intact. NECK: Supple. No carotid bruits or thyromegaly. CHEST: Clear to auscultation. HEART: S1 and S2 regular. ABDOMEN: Soft. EXTREMITIES: Clubbing and cyanosis negative, but trace pedal edema noted. LABORATORY DATA: Blood workup as follows: WBC 8.8, hemoglobin , hematocrit 34.2, platelet count 275. Chemistry shows sodium 143, potassium 3, chloride 95, carbon dioxide 37, anion gap of 15, BUN 11, creatinine 0.5. ProBNP 821. IMPRESSION: Tachycardia, in sinus; patient claims a heart rate of 170, but here the patient has sinus tachycardia. History of paroxysmal atrial fibrillation, status post radiofrequency ablation in 06/2014. History of multiple admissions with congestive heart failure and atrial fibrillation with rapid ventricular rate; history of chronic obstructive pulmonary disease, multiple admission with chronic obstructive pulmonary disease exacerbation; history of cardiac catheterization in 2013, nonobstructive coronary artery disease, history of [id number] myocardial infarction most likely secondary to thrombus went into coronaries. Cardiac catheterization revealed normal coronaries. History of recent line sepsis from the peripherally inserted central catheter line and admitted with sepsis at [facility] after getting discharge from here. History of gastrointestinal bleed, off anticoagulation. Currently, patient is taking only sotalol. Digoxin completely stopped, also Eliquis was discontinued after the last gastrointestinal bleed, history of radiofrequency ablation in June. Last echo in 2018, read by Dr. Garg, he has no significant mitral regurgitation, [id number] tricuspid regurgitation and right ventricular systolic pressure reported as 47 and ejection fraction of 49%. RECOMMENDATION: We will repeat the MUGA scan to see the LV function. We will resume back sotalol and if the patient gets more tachycardic, we will consider verapamil. Now the patient's blood pressure is borderline, so we will hold off. Continue sotalol and aspirin. We will follow with you. Discuss in length with the patient and patient's . We will supplement potassium and also get a lipid profile, TSH, hemoglobin A1c. We will hold any type of anticoagulation because of the history of bleeding. We will consider Venodyne boot for DVT prophylaxis. Thank you, Dr. Bowman, for providing us the opportunity in taking care of Demetrio Cano. Shaila Samuel MD
[2017-12-29] MEDS: Levalbuterol 1.25 MG/3 ML Inhal Soln UD IH SCH ×5 (02:45→20:30)
[2017-12-29] MEDS: oxyCODONE 15 mg Immediate Release Tab PO PRN ×2 (04:48→17:51)
[2017-12-29 07:11] LABS: BASO # 0.03 K/mm3 (0.0-2.0); BASO % 0.5 % (0.0-3.0); EOS # 0.2 (0.0-0.7); EOS % 3.1 % (1.5-5.0); GRAN # 4.15 (1.4-6.5); GRAN % 70.5 % (50.0-68.0); HEMOGLOBIN 8.8 g/dL (14.0-18.0); LYMPH # 0.9 (1.2-3.4); LYMPH % 15.5 % (22.0-35.0); MEAN CELL VOLUME 79.5 fl (80.0-105.0); MEAN CORPUSCULAR HEMOGLOBIN 23.8 pg (25.0-35.0); MEAN CORPUSCULAR HGB CONC 29.9 g/dl (31.0-37.0); MEAN PLATELET VOLUME 9.5 fl (7.0-11.0); MONO # 0.6 (0.1-0.6); MONO % 10.4 % (1.0-6.0); RBC 3.7 10^6/uL (3.5-6.1); RED CELL DISTRIBUTION WIDTH 14.8 % (11.5-14.5); WHITE BLOOD COUNT 5.9 10^3/ul (4.5-11.0)
[2017-12-29 07:34] LABS: LDL CHOLESTEROL 82 mg/dL (0-129)
[2017-12-29 07:47] LABS: ALB/GLOB RATIO 1.3 (1.1-1.8); ALBUMIN 3.3 g/dL (3.0-4.8); ALT/SGPT 26 U/L (7-56); AST/SGOT 18 U/L (17-59); BLOOD UREA NITROGEN 8 mg/dL (7-21); CALCIUM 8.7 mg/dL (8.4-10.5); GFR AFRICAN-AMERICAN > 60; GFR NON-AFRICAN AMERICAN > 60; HDL CHOLESTEROL 34 mg/dL (29-60)
[2017-12-29] MEDS ORDERED: Potassium Chloride 20 mEq ER Tab PO ONE ×2 (09:27→11:45)
[2017-12-29] MEDS: Potassium Chloride 10 mEq ER Tab PO SCH (09:45)
[2017-12-29] MEDS: oxyCODONE 20 mg ER Tab (oxyCONTIN) PO SCH ×2 (09:45→22:14)
[2017-12-29] MEDS: Pantoprazole 40 mg EC Tab PO SCH (09:45)
[2017-12-29] MEDS: Magnesium Oxide 400 mg Tab UD PO SCH ×2 (09:55→17:50)
[2017-12-29] MEDS ORDERED: Magnesium Citrate Oral SOL (300 ml) PO ONE (10:32)
[2017-12-29] MEDS: POLYETHYLENE GLYCOL 3350 17 GM/Dose PACKET PO SCH (11:48)
[2017-12-29 11:53] LABS: HEMOGLOBIN 9.6 g/dL (14.0-18.0)
[2017-12-29] MEDS ORDERED: Gadodiamide 287 MG/ML VIAL (20ML) IV ONE (12:49)
--- NOTE | 2017-12-29 13:40 | MRI ---
PROCEDURE: MR LUMBAR SPINE WITH AND WITHOUT CONTRAST HISTORY: low back pain /numbnesss COMPARISON: None available. TECHNIQUE: Multiecho multiplanar sequences were performed through the lumbar spine with and without the use of intravenous contrast. FINDINGS: Normal lumbar lordosis. Multiple vertebral compression fractures are seen with marrow edema and enhancement indicating they are either acute or subacute. There is mild compression of the superior endplate of T12 with associated enhancement. There is a focal Schmorl's node. There is a mild compression deformity of the inferior endplate of L1 with enhancement and edema. There is a large Schmorl's node of the superior endplate of L2 and enhancement of the lower half of the L2 vertebral body. L3 and L4 vertebral bodies are unremarkable. There is a moderate compression deformity of L5 with edema and enhancement in the inferior half. Conus medullaris unremarkable at the level of T12 Paraspinal soft tissues are unremarkable. OTHER FINDINGS: None. IMPRESSION: Multiple compression fractures with marrow edema and enhancement consistent with acute or subacute fractures.
--- NOTE | 2017-12-29 14:56 | PN ---
DATE: 12/29/2017 SUBJECTIVE: The patient is 57-year-old, complained of constipation, does have shortness of breath with cough, no more feeling of palpitation. PHYSICAL EXAMINATION: VITAL SIGNS: The patient is afebrile, pulse 58, respirations 18, blood pressure 100/55. LUNGS: Bilateral fair airflow, diffusely decreased breath sounds. HEART: S1 and S2 audible. ABDOMEN: Soft, nontender, obese, no hepatosplenomegaly. NEUROLOGIC: The patient is awake, alert, oriented, communicative. LABORATORY DATA: Hemoglobin 9.6, hematocrit 32. Chemistry: Sodium 140, potassium 3.8, chloride 97, CO2 of 34, BUN 8, creatinine 0.6, blood sugar of 98. ASSESSMENT: 1. Chronic obstructive pulmonary disease exacerbation. 2. Cardiomyopathy. 3. Left ventricular dysfunction. 4. Mild pulmonary hypertension. 5. Status post ablation for atrial fibrillation, now in sinus rhythm. 6. Chronic degenerative disk disease. PLAN: We will follow up MUGA scan. He is currently on sotalol, Daliresp, nebulizer treatment. He is on diuretics. Continue him on Rocephin and Zithromax. The patient is scheduled to have MRI of the lumbosacral spine. We will follow that. Follow up electrolyte in the a.m. Ross Bowman MD
--- NOTE | 2017-12-29 14:57 | PN ---
DATE: 12/29/2017 REASON FOR CONSULTATION: Follow up sinus tachycardia, palpitations, history of atrial fibrillation. He is status post radiofrequency ablation, COPD, CHF. SUBJECTIVE: The patient denies any chest pain, shortness of breath, wanted bedside commode because he feels that legs are weak and he get an accident. OBJECTIVE: GENERAL: Not in any apparent distress, lying flat on the bed. VITAL SIGNS: Temperature afebrile, heart rate 88, blood pressure 97/61. HEENT: PERRLA. Extraocular muscles intact. NECK: Supple. No carotid bruit. No thyromegaly. CHEST: Clear to auscultation. HEART: S1 and S2 regular. ABDOMEN: Soft. EXTREMITIES: Clubbing and cyanosis negative. LABORATORY DATA: Blood workup as follows; WBC 5.9, hemoglobin 8.8, hematocrit 29.4, platelet count 241. Chemistry shows sodium 140, potassium 3.8, chloride 97, carbon dioxide 34, anion gap of 13, BUN 8, creatinine 0.8. IMPRESSION: History of paroxysmal atrial fibrillation, status post radiofrequency ablation; history of [id number] myocardial infarction in the past; history of cardiac catheterization; nonobstructive coronary artery disease, possibly thrombus went into coronaries; history of bad chronic obstructive pulmonary disease; history of atrial fibrillation, status post radiofrequency ablation in June; history of cardiac catheterization in 11/2013. Last MUGA scan shows ejection fraction 54%, on sotalol. Hypotension, bad chronic obstructive pulmonary disease, history of gastrointestinal bleed, was on Eliquis; massive gastrointestinal bleed on last admission and he came back from rehab. RECOMMENDATIONS: Cut the sotalol to 80 mg twice. We will provide the bedside commode. Complaint of numbness in the feet, history of lumbar radiculopathy. We will ask Dr. Linder for followup. Repeat CBC because of drop in hemoglobin from 10.5 to 8.8. If remained stable, then we will discontinue telemetry. We will supplement potassium. Continue physical therapy and bedside commode and we will get MUGA scan to assess the LV and RV function. Most recent echo the patient had on 06/01/2017 that shows borderline LV function within the normal limit. Mild pulmonary hypertension. Repeat echo on 09/08/2017 shows mild tricuspid regurgitation, mild to moderate pulmonary hypertension. No mitral valve regurgitation. Calculated ejection fraction 48% with calculated RV systolic pressure 47 mmHg. Interim, continue supplement potassium. Continue aspirin. Continue pain medication. We will change the albuterol to Xopenex to prevent tachycardia and stat CBC. If the CBC remain stable, then we will discontinue telemetry. History of GI bleed in the past. I will send also guaiac stool also and repeat H&H. Thank you, Dr. Bowman, for providing us the opportunity in taking care of the patient, Demetrio Cano. Shaila Samuel MD
--- NOTE | 2017-12-29 15:21 | CON ---
DATE: 12/29/2017 PULMONARY CONSULTATION We were asked by Dr. Bowman, nuclear spectroscopist to evaluate and treat this 57-year-old man who is well known to us from previous admissions. HISTORY OF PRESENT ILLNESS: A 57-year-old admitted in August with exacerbation of COPD. He was intubated and after successful weaning of the ventilator, his condition has improved. He was transferred to [facility]. However, he developed bacteremia due to a line sepsis. From there, he went to acute hospital and was discharged 1 week ago. He states that last night he developed rapid heartbeat and some shortness of breath and was brought to emergency room. ALLERGIES: NO KNOWN ALLERGIES. HOME MEDICATIONS: He was on prednisone 5 mg b.i.d., OxyContin 20 b.i.d., Singulair 10 once a day, Spiriva daily and Eliquis was discontinued. SOCIAL HISTORY: History of smoking, quit in 2012 and recently was not drinking. FAMILY HISTORY: HTN, CAD REVIEW OF SYSTEMS: Was conducted by reviewing all sources. Respiratory: See history of present illness. In addition to that, there is cough, congestion. Cardiovascular: Recent tachycardia. See history of present illness. GI: No history of nausea, vomiting or diarrhea. The rest of the systems were reviewed and found to be negative. PHYSICAL EXAMINATION: GENERAL: He is awake, alert, in no acute distress. VITAL SIGNS: His respirations are 22, pulse 100, blood pressure is 100/62, oxygen saturation on nasal cannula is 95. HEENT: Examination of head normocephalic and atraumatic. PULMONARY: Bilateral good airflow. No rhonchi or crackles. CARDIOVASCULAR: S1, S2. GI: Soft, obese, nontender. No rebound. No guarding. NEUROLOGIC: No focal deficits. SKIN: No skin rashes. No cyanosis. LABORATORY DATA: WBC is 8.2, hemoglobin of 10.5, hematocrit 34. CO2 of 37. ASSESSMENT: 1. Exacerbation of chronic obstructive pulmonary disease. 2. Bronchial asthma. 3. Tachycardia, sinus versus supraventricular tachycardia. 4. Chronic anemia. PLAN: The patient was started on Xopenex inhalations. I will adjust his nebulizer treatments. His electrolytes are acceptable. Cardiology is seeing the patient and he is currently undergoing workup. A nuclear stress test will be done today. We will review results. We will follow closely. Jp Lacy MD [facility] # [id number] LEANDRA
--- NOTE | 2017-12-29 18:42 | CON ---
DATE: 12/29/2017 NEUROLOGY CONSULT CHIEF COMPLAINT: Low back pain and numbness of the toes. HISTORY OF PRESENT ILLNESS: This is a 57-year-old man with history of COPD; history of cardiomyopathy; history of pulmonary hypertension; history of AFib, status post ablation, now in sinus rhythm; history of chronic low back pain and chronic degenerative disk disease and and deconditioned state, who was recently admitted in the hospital in 08/2017 for COPD exacerbation, was intubated and successfully weaned off from the ventilator and condition improved and transferred to the long-term care and now has developed bacteremia due to the line sepsis for that he has been admitted to the hospital for further evaluation and developed rapid AFib and shortness of breath and was brought into the emergency room, which has now been stabilized. I was consulted for low back pain, occasionally radiating down the leg as well as numbness of his toes. He has underwent an MRI of the lumbosacral spine, which showed multiple compression fractures, marrow edema and enhancement consistent with acute to subacute fractures, especially there is a moderate compression deformity at L5 with edema and enhancement in the inferior half as well as mild compression of superior end plate of T12 and associated encroachment and mild compression deformity of the inferior end plate of L1 with enhancement of edema. The patient will likely benefit from gabapentin and he is on opiates for pain relief. We will also recommend Neurosurgery consult for acute and subacute compression fractures and physical therapy. PAST MEDICAL HISTORY: As above. SOCIAL HISTORY: No illicit drug use, smoking or EtOH abuse. ALLERGIES: NO KNOWN DRUG ALLERGIES. MEDICATIONS: Reviewed by nurses' reconciliation sheet. FAMILY HISTORY: Noncontributory. REVIEW OF SYSTEMS: Fourteen-point review of systems negative except as per the HPI. PHYSICAL EXAMINATION: VITAL SIGNS: Temperature of 98, pulse rate 116, blood pressure 98/59, respiratory rate of 18. GENERAL: The patient is sitting up in bed, in no acute distress. HEENT: Atraumatic, normocephalic. PERRLA. Extraocular muscles intact. NECK: Supple. No JVD. No adenopathy noted. LUNGS: Clear to auscultation. No adventitious sounds. HEART: S1, S2. Normal rate and rhythm. No murmurs, rubs or gallops. ABDOMEN: Soft, nontender and nondistended. Bowel sounds are present. EXTREMITIES: No clubbing. No cyanosis. Peripheral pulses 2+ felt bilaterally. NEUROLOGIC: The patient is alert and oriented to person, place, month and year. Speech is fluent without any errors. Cranial nerves II through XII intact. Motor exam: Moves all extremities equally. No pronator drift seen. Sensory exam: Decreased light touch and pinprick up to the calves bilaterally. Decreased vibration of the toes. DTRs are 2+ throughout, 1 at both knees and ankles. Coordination: Iuwnee-em-lige intact. No dysmetria noted. LABORATORY DATA: Sodium is 140, potassium 3.8, chloride 97, carbon dioxide of 34, BUN of 8, creatinine of 0.6, random glucose of 98. ASSESSMENT AND PLAN: This is a 57-year-old man with history of chronic obstructive pulmonary disease with recent chronic obstructive pulmonary disease exacerbation; history of atrial fibrillation, status post ablation; hypertension; chronic degenerative disk disease especially in the lumbosacral area with occasional low back pain radiating down the right leg, who comes in for a line sepsis and bacteremia and developed rapid heart rate and shortness of breath. He has been corrected by Cardiology and the Medical team. I was consulted for mid low back pain, radiating down the right buttocks down the right leg with some paresthesias and numbness of his toes, which is likely secondary to his underlying acute on chronic lumbosacral radiculopathy with evidence of acute on chronic subacute compression fractures, which is seen on the MRI with marrow edema, especially at the L5 inferior half where there is some edema as well, but the conus medullaris is unremarkable at the level of T12. Paraspinal soft tissues are unremarkable. At this time, I would recommend, 1. Physical and occupational therapy. 2. Lidoderm patches. 3. Gabapentin 300 mg p.o. at bedtime for neuropathic relief and this will continue with chronic nonsteroidal antiinflammatory drugs or opiates for acute onset of pain. 4. Neurosurgery consult in regards to acute and subacute compression fractures and continue with current present medical management. Thank you for this consult. Demarco Linder MD
[2017-12-30] MEDS: Levalbuterol 1.25 MG/3 ML Inhal Soln UD IH SCH ×4 (02:50→19:58)
[2017-12-30] MEDS: oxyCODONE 15 mg Immediate Release Tab PO PRN ×2 (05:07→16:19)
[2017-12-30 07:59] LABS: BASO # 0.03 K/mm3 (0.0-2.0); BASO % 0.6 % (0.0-3.0); EOS # 0.2 (0.0-0.7); EOS % 3.4 % (1.5-5.0); GRAN # 3.63 (1.4-6.5); GRAN % 68.1 % (50.0-68.0); HEMOGLOBIN 8.8 g/dL (14.0-18.0); LYMPH # 0.9 (1.2-3.4); LYMPH % 16.1 % (22.0-35.0); MEAN CELL VOLUME 78.9 fl (80.0-105.0); MEAN CORPUSCULAR HEMOGLOBIN 24.1 pg (25.0-35.0); MEAN CORPUSCULAR HGB CONC 30.6 g/dl (31.0-37.0); MEAN PLATELET VOLUME 9.4 fl (7.0-11.0); MONO # 0.6 (0.1-0.6); MONO % 11.8 % (1.0-6.0); RBC 3.65 10^6/uL (3.5-6.1); RED CELL DISTRIBUTION WIDTH 14.9 % (11.5-14.5); WHITE BLOOD COUNT 5.3 10^3/ul (4.5-11.0)
[2017-12-30 08:17] LABS: BLOOD UREA NITROGEN 7 mg/dL (7-21); CALCIUM 8.8 mg/dL (8.4-10.5); GFR AFRICAN-AMERICAN > 60; GFR NON-AFRICAN AMERICAN > 60
[2017-12-30] MEDS: oxyCODONE 20 mg ER Tab (oxyCONTIN) PO SCH ×2 (11:03→21:39)
[2017-12-30] MEDS: Potassium Chloride 10 mEq ER Tab PO SCH (11:06)
[2017-12-30] MEDS: Magnesium Oxide 400 mg Tab UD PO SCH ×2 (11:06→17:58)
[2017-12-30] MEDS: Pantoprazole 40 mg EC Tab PO SCH (11:06)
[2017-12-30] MEDS: POLYETHYLENE GLYCOL 3350 17 GM/Dose PACKET PO SCH (11:07)
--- NOTE | 2017-12-30 11:16 | CP.PCM.PN ---
Subjective - Date & Time of Evaluation Date of Evaluation: 12/30/17 Time of Evaluation: 11:15 - Subjective Subjective: full consult dictated no acute surgical problem poor surgical candidate in any event Suggest consult by Dr Campoverde for vertebroplasty Objective - Vital Signs/Intake and Output Vital Signs (last 24 hours): Temp Pulse Resp BP Pulse Ox 98.5 F 83 18 91/60 L 93 L 12/30/17 06:00 12/30/17 11:06 12/30/17 06:00 12/30/17 11:06 12/30/17 06:00 Intake and Output: 12/30/17 12/30/17 06:59 18:59 Intake Total 120 Output Total 200 Balance -80 - Medications Medications: Current Medications Alprazolam (Xanax) 0.5 mg PO BID ERNESTINA PRN Reason: Protocol Last Admin: 12/30/17 11:04 Dose: 0.5 mg Aspirin (Ecotrin) 81 mg PO DAILY ERNESITNA Last Admin: 12/30/17 11:06 Dose: 81 mg Budesonide (Pulmicort Respules) 0.5 mg IH BIDRESP ERNESTINA Furosemide (Lasix) 40 mg IVP DAILY ERNESTINA Last Admin: 12/30/17 11:06 Dose: 40 mg Levalbuterol HCl (Xopenex) 1.25 mg [id number] Last Admin: 12/30/17 08:31 Dose: 1.25 mg Magnesium Oxide (Mag-Ox) 400 mg PO BID ERNESTINA Last Admin: 12/30/17 11:06 Dose: 400 mg Montelukast Sodium (Singulair) 10 mg PO DAILY ERNESTINA Last Admin: 12/30/17 11:06 Dose: 10 mg Oxycodone HCl (Oxycontin Extended Release Tab) 20 mg PO Q12 ERNESTINA Last Admin: 12/30/17 11:03 Dose: 20 mg Oxycodone HCl (Oxycodone Immediate Release Tab) 15 mg PO Q6H PRN PRN Reason: Pain, moderate (4-7) Last Admin: 12/30/17 05:07 Dose: 15 mg Pantoprazole Sodium (Protonix Ec Tab) 40 mg PO DAILY ERNESTINA Last Admin: 12/30/17 11:06 Dose: 40 mg Polyethylene Glycol (Miralax) 17 gm PO DAILY ERNESTINA Last Admin: 12/30/17 11:07 Dose: Not Given Potassium Chloride (Klor-Con 10) 10 meq PO DAILY [facility] Last Admin: 12/30/17 11:06 Dose: 10 meq Roflumilast (Daliresp) 500 mcg PO DAILY [facility] Last Admin: 12/30/17 11:06 Dose: 500 mcg Sotalol HCl (Betapace) 80 mg PO BID [facility] Last Admin: 12/30/17 11:06 Dose: 80 mg Verapamil HCl (Verapamil Inj) 2.5 mg IVP Q6H PRN PRN Reason: for heart rate >130 - Labs Labs: 12/30/17 07:30 12/30/17 07:30 PT 10.6 SECONDS (9.4-12.5) 12/28/17 04:03 INR 0.93 (0.93-1.08) 12/28/17 04:03
--- NOTE | 2017-12-30 13:38 | PN ---
DATE: 12/30/2017 SUBJECTIVE: The patient is a 57 years old, seen and examined, lying in bed, seems to be comfortable. No nausea. No vomiting. No diarrhea. PHYSICAL EXAMINATION: VITAL SIGNS: He is afebrile, pulse 83, respirations 18, blood pressure 91/60. LUNGS: Bilateral diffusely decreased breath sounds. HEART: S1 and S2, audible. ABDOMEN: Soft, obese, nontender. No rebound. No guarding. NEUROLOGIC: He is awake, alert, oriented, communicative. EXTREMITIES: Bilateral legs, no edema. LABORATORY DATA: WBC 5.3, hemoglobin 8.8, hematocrit 28, platelet of 224. Chemistry: Sodium 137, potassium 4.4, chloride 96, CO2 33, BUN 7, creatinine is 0.6. Blood sugar of 97. He had MUGA scan done yesterday, results are pending. Lumbar spine MRI was ordered that shows multiple compression fracture with marrow edema and enhancement consistent with acute or subacute fractures. Dr. Downs was consulted. His input noted and appreciated. He referred the patient to Dr. De Campoverde for possible kyphoplasty. ASSESSMENT: 1. Chronic obstructive pulmonary disease exacerbation. 2. Congestive heart failure. 3. Status post ablation procedure for atrial fibrillation, currently, the patient is in sinus rhythm. 4. Nonischemic cardiomyopathy. 5. Chronic back pain. 8. Chronic anemia. PLAN: We will continue patient on current medication, sotalol is used for treatment of his arrhythmia. We will continue him on Daliresp, potassium. He is on Lasix. Continue him on magnesium and Protonix. I will request Dr. De Campoverde to evaluate the patient if he is a candidate for kyphoplasty. Ross Bowman MD
--- NOTE | 2017-12-30 13:44 | PN ---
DATE: 12/30/2017 NEUROLOGY FOLLOWUP CHIEF COMPLAINT: Followup for low back pain. SUBJECTIVE: The patient is seen and examined at bedside, has mild low back pain. Neurosurgery is seen. Recommended vertebroplasty rather than surgery for his acute and subacute compression fractures, especially at the L5 inferior half. No acute events overnight. PAST MEDICAL HISTORY: History of COPD; history of cardiomyopathy; history of pulmonary hypertension; history of AFib, status post ablation and chronic degenerative disk disease. ALLERGIES: NO KNOWN DRUG ALLERGIES. SOCIAL HISTORY: No illicit use, smoking or EtOH abuse. MEDICATIONS: Reviewed by nurse reconciliation sheet. FAMILY HISTORY: Noncontributory. LABORATORY DATA: Sodium is 137, potassium 4.4, chloride of 96, BUN of 7, creatinine 0.6, random glucose of 97. PHYSICAL EXAMINATION: VITAL SIGNS: Temperature of 98.5, pulse rate of 82, blood pressure of 91/60, respiratory rate of 18, oxygen saturation of % by nasal cannula. GENERAL: The patient is sitting up in bed, in no acute distress. HEENT: Atraumatic, normocephalic. PERRLA. Extraocular muscles intact. NECK: Supple. No JVD. No adenopathy noted. LUNGS: Clear to auscultation. No adventitious sounds. HEART: S1, S2. Normal rate and rhythm. No murmurs, rubs or gallops. ABDOMEN: Soft, nontender and nondistended. Bowel sounds are present. EXTREMITIES: No clubbing. No cyanosis. Peripheral pulses 2+ felt bilaterally. NEUROLOGIC: The patient is alert and oriented to person, place, month and year. Speech is fluent without any errors. Cranial nerves II through XII intact. Motor exam: Moves all extremities equally. No pronator drift seen. Sensory exam: Decreased light touch and pinprick up to the calves bilaterally. Decreased vibration of the toes. DTRs are 2+ throughout, 1 at both knees and ankles. Coordination: Ppergo-vo-[id number] intact. No dysmetria noted. Gait is deferred for now. ASSESSMENT AND PLAN: This is a 57-year-old man with history of chronic obstructive pulmonary disease with recent chronic obstructive pulmonary disease exacerbation; history of atrial fibrillation, status post ablation; hypertension; chronic degenerative disk disease, especially in the lumbosacral area with occasionally low back pain radiating down the right leg, who comes in for a line sepsis, bacteremia, rapid heart rate and shortness of breath. He has been corrected and stabilized by the Medical and Cardiac team. I was consulted initially for mid to low back pain radiating down the right buttocks down the right leg with some paresthesias in terms of numbness and tingling of the toes, which is likely secondary to acute on chronic lumbosacral radiculopathy with evidence of acute on chronic subacute compression fractures, which is seen on the MRI with marrow edema, especially at the L4 inferior half. Neurosurgical team has evaluated the patient and recommended no surgical indication at this time and then recommend vertebroplasty. At this time, I will recommend, 1. Physical and occupational therapy. 2. Lidoderm patches. 3. Gabapentin 300 mg p.o. at bedtime for neuropathic relief and continue with chronic antisteroidals. 4. Consult Dr. De Campoverde for vertebroplasty and continue current present medical management. Thank you for this followup. Demarco Linder MD
--- NOTE | 2017-12-30 16:17 | PN ---
DATE: 12/30/2017 PULMONARY PROGRESS NOTE LOCATION: Room 275, bed 2. SUBJECTIVE: Demetrio Cano has markedly improved since coming to the hospital. He had exacerbation of chronic obstructive pulmonary disease, was initially intubated and weaned from mechanical ventilation, underlying sepsis and now is recovering on telemetry. He is in no acute respiratory distress at this time, moving around gives him some distress but the rest is fine. PHYSICAL EXAMINATION: GENERAL: He is resting comfortably, in no acute distress. VITAL SIGNS: Stable. Blood pressure 120/70, heart rate 80, respiratory rate 18, O2 sat 98% on supplemental nasal cannula oxygen. HEENT: Normocephalic, atraumatic. Eyes: PERRLA. EOM is full. Conjunctivae pink. NECK: Supple. No JVD. No bruit. No lymphadenopathy. CHEST: Global decrease in breath sounds. No wheezing appreciated. Minimal rhonchi noted. ABDOMEN: Soft. Bowel sounds normoactive without mass, guarding, rebound or organomegaly. EXTREMITIES: No clubbing, cyanosis or edema. NEUROLOGICAL: No focal findings. SKIN: Dry; intact LABORATORY STUDIES: No new findings are available today. ASSESSMENT: 1. Status post exacerbation of chronic obstructive pulmonary disease. 2. Status post respiratory failure. 3. Tracheomalacia. 4. Acute bronchospasm, resolved. 5. Anemia. PLAN: Continue vigorous inhalation therapy. Cardiology evaluation. Stress test regarding cardiac disease is pending. We will follow closely with you and decide on the need for further intervention based on his clinical status. We will follow with you during this hospitalization and afterwards in the office as usual. Continue to taper medications as tolerated. Thank you for the opportunity to see Demetrio Cano in followup Pulmonary evaluation. Bob Love MD LEANDRA
[2017-12-30] MEDS: Budesonide 0.5 mg/2 ml Inhal Susp UD IH SCH (19:58)
[2017-12-31] MEDS: Levalbuterol 1.25 MG/3 ML Inhal Soln UD IH SCH ×4 (04:35→19:35)
[2017-12-31] MEDS: oxyCODONE 15 mg Immediate Release Tab PO PRN ×2 (05:39→16:38)
[2017-12-31 07:32] LABS: ALB/GLOB RATIO 1.3 (1.1-1.8); ALBUMIN 3.3 g/dL (3.0-4.8); ALT/SGPT 26 U/L (7-56); AST/SGOT 26 U/L (17-59); BLOOD UREA NITROGEN 6 mg/dL (7-21); CALCIUM 8.9 mg/dL (8.4-10.5); GFR AFRICAN-AMERICAN > 60; GFR NON-AFRICAN AMERICAN > 60
[2017-12-31] MEDS: Budesonide 0.5 mg/2 ml Inhal Susp UD IH SCH ×2 (08:58→19:35)
[2017-12-31] MEDS: Magnesium Oxide 400 mg Tab UD PO SCH ×2 (10:22→17:47)
[2017-12-31] MEDS: Potassium Chloride 10 mEq ER Tab PO SCH (10:23)
[2017-12-31] MEDS: Pantoprazole 40 mg EC Tab PO SCH (10:23)
[2017-12-31] MEDS: oxyCODONE 20 mg ER Tab (oxyCONTIN) PO SCH ×2 (10:23→22:32)
[2017-12-31] MEDS: POLYETHYLENE GLYCOL 3350 17 GM/Dose PACKET PO SCH (10:24)
--- NOTE | 2017-12-31 15:06 | PN ---
DATE: 12/31/2017 SUBJECTIVE: The patient is markedly improved after significant diuresis. He has no respiratory distress at this time. He does note a discoloration and discomfort in his right lower extremity, it appears different than the left and is enlarged. Further evaluation is required. PHYSICAL EXAMINATION: GENERAL: Resting comfortably, improved respiratory status. VITAL SIGNS: Stable. Blood pressure 110/70, heart rate 80, respiratory rate 16, O2 sat 98% on supplemental oxygen. HEENT: Normocephalic, atraumatic. Eyes: PERRLA. EOMs full. Conjunctivae pink. NECK: Supple. No JVD. No lymphadenopathy. No bruit. CHEST: Global decrease in breath sounds. No wheezing appreciated. Some rales and rhonchi noted today. ABDOMEN: Soft. Bowel sounds normoactive without mass, guarding, rebound, organomegaly. EXTREMITIES: Reveal some edema and discoloration of the right lower extremity. Etiology unclear. NEUROLOGIC: No focal findings. ASSESSMENT: 1. Rule out deep venous thrombosis. Rule out cellulitis, right lower extremity. 2. Status post respiratory failure. 3. Exacerbation of chronic obstructive pulmonary disease, resolved. 4. Congestive heart failure, currently being treated. PLAN: Bilateral venous Dopplers to rule out DVT. PMD to be notified about evaluation of right lower extremity. Continue vigorous bronchodilator and inhaled corticosteroids. Close followup is essential. We will follow closely with you and decide on the need for further intervention. Thank you for allowing us to participate in the care of this kemi gentleman. Bob Love MD
--- NOTE | 2017-12-31 15:28 | PN ---
DATE: 12/31/2017 SUBJECTIVE: The patient has no complaints of any chest pain or shortness of breath. No headaches. PHYSICAL EXAMINATION: VITAL SIGNS: Temperature is 98.2, pulse of 11, blood pressure is 93/60, respiration is 19. GENERAL: The patient is lying in bed, flat, comfortable. HEENT: No oral lesion. Anicteric sclerae. Moist mucosa. NECK: No JVD, adenopathy, or thyromegaly. CARDIOVASCULAR: S1 and S2, regular. No murmurs, rubs, or gallops. LUNGS: Clear to auscultation bilaterally. No wheeze, rales, or rhonchi. ABDOMEN: Bowel sounds are positive, soft, nontender and nondistended. EXTREMITIES: No cyanosis, clubbing or edema. ASSESSMENT: 1. Acute chronic obstructive pulmonary disease. 2. Congestive heart failure. 3. Atrial fibrillation, now in sinus rhythm, status post ablation. 4. Chronic back pain. 5. Anemia, chronic. PLAN: The patient is currently on sotalol. This will be continued. He is on Daliresp for breathing. The patient is on Lasix daily. He is on Neurontin for neuropathy. He is going to continue on oxycodone for pain. The patient is on verapamil. He is on a heart-healthy diet. Johnathon Willoughby MD
[2018-01-01] MEDS: Levalbuterol 1.25 MG/3 ML Inhal Soln UD IH SCH ×4 (01:24→20:33)
[2018-01-01] MEDS: oxyCODONE 15 mg Immediate Release Tab PO PRN ×2 (03:12→16:44)
[2018-01-01] MEDS: Budesonide 0.5 mg/2 ml Inhal Susp UD IH SCH ×2 (07:45→20:33)
--- NOTE | 2018-01-01 08:14 | CON ---
DATE: 12/29/2017 HISTORY OF PRESENT ILLNESS: This is a 57-year-old male with significant cardiopulmonary disease, who has longstanding low back pain. He was treated with some epidurals and inpatient physical therapy, which helped somewhat. He tends to use a walker or wheelchair to get around because of low back pain. He denies any leg pain. He states that the pain has slowly been getting worse. He presents with an MRI showing multiple small compression fractures in the lumbar spine. There is really no evidence of spinal stenosis. He has, on exam, 5/5 strength. No straight leg raising. No sensory deficits and his back is fairly nontender. At this point, he needs to be maximally treated for his admission diagnosis and treated for his cardiopulmonary disease. The spine is a longstanding problem, which is certainly not emergent. I told him that he can come to the office and we can discuss possible treatment, but based upon the MRI that I see, I really cannot discern a surgical management for him. Perhaps an evaluation for kyphoplasty or vertebroplasty by Dr. Campoverde would be warranted. Chon Downs MD
--- NOTE | 2018-01-01 08:16 | CP.PCM.PN ---
Subjective - Date & Time of Evaluation Date of Evaluation: 01/01/18 Time of Evaluation: 06:35 - Subjective Subjective: Awake, no distress, denies shortness of breath and chest pain Reason for consultation and follow up:Cardiac evaluation, sinus tachycardia, atrial fibrillation post ablation, COPD, CHF Seen and examined by me and Dr. Samuel Objective - Vital Signs/Intake and Output Vital Signs (last 24 hours): Temp Pulse Resp BP Pulse Ox 98.1 F 110 H 20 98/65 L 95 01/01/18 06:00 01/01/18 06:00 01/01/18 06:00 01/01/18 06:00 01/01/18 06:00 Intake and Output: 01/01/18 01/01/18 06:59 18:59 Intake Total 480 Output Total 340 Balance 140 - Medications Medications: Current Medications Alprazolam (Xanax) 0.5 mg PO BID ERNESTINA PRN Reason: Protocol Last Admin: 12/31/17 17:47 Dose: 0.5 mg Aspirin (Ecotrin) 81 mg PO DAILY [facility] Last Admin: 12/31/17 10:22 Dose: 81 mg Budesonide (Pulmicort Respules) 0.5 mg IH BIDRESP [facility] Last Admin: 01/01/18 07:45 Dose: 0.5 mg Furosemide (Lasix) 40 mg IVP DAILY [facility] Last Admin: 12/31/17 10:24 Dose: 40 mg Gabapentin (Neurontin) 300 mg PO HS ERNESTINA PRN Reason: Protocol Last Admin: 12/31/17 22:33 Dose: 300 mg Levalbuterol HCl (Xopenex) 1.25 mg IH A5CNSHT [facility] Last Admin: 01/01/18 07:45 Dose: 1.25 mg Magnesium Oxide (Mag-Ox) 400 mg PO BID [facility] Last Admin: 12/31/17 17:47 Dose: 400 mg Montelukast Sodium (Singulair) 10 mg PO DAILY [facility] Last Admin: 12/31/17 10:23 Dose: 10 mg Oxycodone HCl (Oxycontin Extended Release Tab) 20 mg PO Q12 [facility] Last Admin: 12/31/17 22:32 Dose: 20 mg Oxycodone HCl (Oxycodone Immediate Release Tab) 15 mg PO Q6H PRN PRN Reason: Pain, moderate (4-7) Last Admin: 01/01/18 03:12 Dose: 15 mg Pantoprazole Sodium (Protonix Ec Tab) 40 mg PO DAILY [facility] Last Admin: 12/31/17 10:23 Dose: 40 mg Polyethylene Glycol (Miralax) 17 gm PO DAILY [facility] Last Admin: 12/31/17 10:24 Dose: Not Given Potassium Chloride (Klor-Con 10) 10 meq PO DAILY [facility] Last Admin: 12/31/17 10:23 Dose: 10 meq Roflumilast (Daliresp) 500 mcg PO DAILY [facility] Last Admin: 12/31/17 10:22 Dose: 500 mcg Sotalol HCl (Betapace) 80 mg PO BID [facility] Last Admin: 12/31/17 17:47 Dose: 80 mg Verapamil HCl (Verapamil Inj) 2.5 mg IVP Q6H PRN PRN Reason: for heart rate >130 - Labs Labs: 12/30/17 07:30 12/31/17 06:30 PT 10.6 SECONDS (9.4-12.5) 12/28/17 04:03 INR 0.93 (0.93-1.08) 12/28/17 04:03 - Constitutional Appears: No Acute Distress - Head Exam Head Exam: NORMOCEPHALIC - Eye Exam Eye Exam: Normal appearance - ENT Exam ENT Exam: Mucous Membranes Moist - Respiratory Exam Respiratory Exam: Decreased Breath Sounds, NORMAL BREATHING PATTERN Additional comments: nasal cannula - Cardiovascular Exam Cardiovascular Exam: +S1, +S2 Additional comments: Telemetry sinus tachycardia - GI/Abdominal Exam GI & Abdominal Exam: Soft, Normal Bowel Sounds - Extremities Exam Extremities Exam: Normal Capillary Refill Additional comments: 1+edema - Neurological Exam Neurological Exam: Alert, Awake, Oriented x3 - Psychiatric Exam Psychiatric exam: Normal Affect, Normal Mood - Skin Skin Exam: Intact, Normal Color, Warm Assessment and Plan - Assessment and Plan (Free Text) Assessment: A 57 year old male,who was brought to the ER by ambulance due to rapid heart rate (sinus tachycardia). History of COPD, paroxysmal atrial fibrillation status post ablation, CHF, CAD, LA, Hypertension, and chronic back pain. Recently discharged from rehab post hospitalization for CHF and rectal bleeding from hemorrhoids requiring blood transfusion. Plan: Complaining of back pain. PRN pain medication On ASA 81 mg daily, Lasix 40 mg daily, Sotalol 80 mg BID, PRN Verapamil for HR above 130 Continue current medications Continue current treatment Will follow up Plan and treatment discussed with Dr. Samuel
--- NOTE | 2018-01-01 09:49 | US ---
HISTORY: Leg pain and swelling. Evaluate for DVT PHYSICIAN(S): De Campoverde MD. TECHNIQUE: Duplex sonography and color-flow Doppler with graded compression were used to evaluate the deep venous systems of both lower extremities. The exam is somewhat limited by edema. FINDINGS: The visualized deep venous systems of both lower extremities are sonographically normal and compressible. Normal wave forms and augmentation are seen. There is no sonographic evidence for deep venous thrombosis in the visualized segments of both lower extremities. IMPRESSION: No sonographic evidence for deep venous thrombosis in the visualized segments of both lower extremities.
[2018-01-01] MEDS: POLYETHYLENE GLYCOL 3350 17 GM/Dose PACKET PO SCH (10:11)
[2018-01-01] MEDS: oxyCODONE 20 mg ER Tab (oxyCONTIN) PO SCH ×2 (10:11→21:29)
[2018-01-01] MEDS: Potassium Chloride 10 mEq ER Tab PO SCH (10:12)
[2018-01-01] MEDS: Pantoprazole 40 mg EC Tab PO SCH (10:12)
[2018-01-01] MEDS: Magnesium Oxide 400 mg Tab UD PO SCH ×2 (10:13→18:09)
--- NOTE | 2018-01-01 14:12 | PN ---
DATE: 01/01/2018 SUBJECTIVE: The patient is 57 years old, seen and examined, lying in bed, seems to be comfortable. Complains of back pain. Complains of shortness of breath. Complains of palpitation at time. PHYSICAL EXAMINATION: VITAL SIGNS: He is afebrile, pulse 110, respirations 20, blood pressure 98/65. LUNGS: Bilateral diffusely decreased breath sounds. HEART: S1 and S2, audible. Regular rate and rhythm. ABDOMEN: Soft, obese, nontender. No rebound. No guarding. NEUROLOGICAL: The patient is awake, alert, oriented, able to communicate. Moves all extremities. No focal deficits. LABORATORY DATA: Procalcitonin 0.05. ASSESSMENT: 1. Sinus tachycardia. 2. Non-ischemic cardiomyopathy. 3. Chronic obstructive pulmonary disease. 4, History of atrial fibrillation, status post ablation. 5. Congestive heart failure. 6. Multiple compression fracture with marrow edema of T12-L1. PLAN: The patient currently is on diuretic. He is on nebulizer treatment. He is on Betapace, getting diuretic IV daily. He is on stool softeners and awaiting Dr. De Campoverde's evaluation for possible kyphoplasty. oRss Bowman MD
--- NOTE | 2018-01-01 21:18 | CARD ---
APPROVED REPORT PROCEDURE The above named patient recieved 25.06 millicuries of Tc99m tagged red blood cells intravenously. After achieving equilibrium, gated imaging of 16/frame/cycle was performed utillizing Gamma camera interfaced with a digital computer and gated device. Gated imaging was then performed in the left anterior oblique, anterior, and the left lateral projections. Findings Left Ventricle: The quality of the study is good. The left ventricle is within normal lmiits in size. The right ventricle is normal in size. Wall motion study shows mild diffuse hypokinesis of the left ventricle. RV wall motion is normal. The right atrium is dynamic. The left atrium is prominent. The remainder of the study is unremarkable. Impressions Mild LV dysfunction with diffuse hypokinesis. LVEF = 44%. Normal RV wall motion. In comparison with the last study of 11/21/2013, there is interval decrease in LV contractility.
[2018-01-02] MEDS: Levalbuterol 1.25 MG/3 ML Inhal Soln UD IH SCH ×4 (01:54→19:52)
[2018-01-02] MEDS: oxyCODONE 15 mg Immediate Release Tab PO PRN ×2 (02:46→16:36)
--- NOTE | 2018-01-02 05:52 | CP.PCM.PN ---
Subjective - Date & Time of Evaluation Date of Evaluation: 01/02/18 Time of Evaluation: 06:25 - Subjective Subjective: Feels better, awake, no distress, denies shortness of breath and chest pain, still complains of back pain Reason for consultation and follow up:Cardiac evaluation, sinus tachycardia, atrial fibrillation post ablation, COPD, CHF Seen and examined by me and Dr. Samuel Objective - Vital Signs/Intake and Output Vital Signs (last 24 hours): Temp Pulse Resp BP Pulse Ox 98.4 F 99 H 22 100/60 99 01/01/18 17:35 01/01/18 18:11 01/01/18 17:35 01/01/18 18:11 01/01/18 17:35 Intake and Output: 01/01/18 01/02/18 18:59 06:59 Intake Total 360 720 Output Total 700 Balance 360 20 - Medications Medications: Current Medications Alprazolam (Xanax) 0.5 mg PO BID [facility] PRN Reason: Protocol Last Admin: 01/01/18 18:09 Dose: 0.5 mg Aspirin (Ecotrin) 81 mg PO DAILY [facility] Last Admin: 01/01/18 10:12 Dose: 81 mg Budesonide (Pulmicort Respules) 0.5 mg IH BIDRESP [facility] Last Admin: 01/01/18 20:33 Dose: 0.5 mg Furosemide (Lasix) 40 mg IVP DAILY [facility] Last Admin: 01/01/18 10:14 Dose: 40 mg Gabapentin (Neurontin) 300 mg PO HS [facility] PRN Reason: Protocol Last Admin: 01/01/18 21:31 Dose: 300 mg Levalbuterol HCl (Xopenex) 1.25 mg IH [id number] [facility] Last Admin: 01/02/18 01:54 Dose: 1.25 mg Magnesium Oxide (Mag-Ox) 400 mg PO BID [facility] Last Admin: 01/01/18 18:09 Dose: 400 mg Montelukast Sodium (Singulair) 10 mg PO DAILY [facility] Last Admin: 01/01/18 10:12 Dose: 10 mg Oxycodone HCl (Oxycontin Extended Release Tab) 20 mg PO Q12 [facility] Last Admin: 01/01/18 21:29 Dose: 20 mg Oxycodone HCl (Oxycodone Immediate Release Tab) 15 mg PO Q6H PRN PRN Reason: Pain, moderate (4-7) Last Admin: 01/02/18 02:46 Dose: 15 mg Pantoprazole Sodium (Protonix Ec Tab) 40 mg PO DAILY [facility] Last Admin: 01/01/18 10:12 Dose: 40 mg Polyethylene Glycol (Miralax) 17 gm PO DAILY [facility] Last Admin: 01/01/18 10:11 Dose: 17 gm Potassium Chloride (Klor-Con 10) 10 meq PO DAILY [facility] Last Admin: 01/01/18 10:12 Dose: 10 meq Roflumilast (Daliresp) 500 mcg PO DAILY [facility] Last Admin: 01/01/18 10:12 Dose: 500 mcg Sotalol HCl (Betapace) 80 mg PO BID [facility] Last Admin: 01/01/18 18:11 Dose: 80 mg Verapamil HCl (Verapamil Inj) 2.5 mg IVP Q6H PRN PRN Reason: for heart rate >130 - Labs Labs: 12/30/17 07:30 12/31/17 06:30 PT 10.6 SECONDS (9.4-12.5) 12/28/17 04:03 INR 0.93 (0.93-1.08) 12/28/17 04:03 - Constitutional Appears: No Acute Distress - Head Exam Head Exam: NORMOCEPHALIC - Eye Exam Eye Exam: Normal appearance - ENT Exam ENT Exam: Mucous Membranes Moist - Respiratory Exam Respiratory Exam: Decreased Breath Sounds, Rhonchi, NORMAL BREATHING PATTERN - Cardiovascular Exam Cardiovascular Exam: +S1, +S2 Additional comments: no JVD - GI/Abdominal Exam GI & Abdominal Exam: Soft, Normal Bowel Sounds - Extremities Exam Extremities Exam: Normal Capillary Refill - Back Exam Additional comments: back pain chronic - Neurological Exam Neurological Exam: Alert, Awake, Oriented x3 - Psychiatric Exam Psychiatric exam: Normal Affect, Normal Mood - Skin Skin Exam: Intact, Normal Color, Warm Assessment and Plan - Assessment and Plan (Free Text) Assessment: A 57 year old male,who was brought to the ER by ambulance due to rapid heart rate (sinus tachycardia). History of COPD, paroxysmal atrial fibrillation status post ablation, CHF, CAD, [place], Hypertension, and chronic back pain. Recently discharged from rehab post hospitalization for CHF and rectal bleeding from hemorrhoids requiring blood transfusion.For possible kyphoplasty (back pain ) Plan: Cardiac status stable Heart rate and blood pressure controlled Still Complaining of back pain. PRN pain medication Dr. Campoverde on consult for possible kyphoplasty On ASA 81 mg daily, Lasix 40 mg daily, Sotalol 80 mg BID, PRN Verapamil for HR above 130 Continue current medications Continue current treatment Will follow up Plan and treatment discussed with Dr. Samuel
[2018-01-02] MEDS: Budesonide 0.5 mg/2 ml Inhal Susp UD IH SCH ×2 (07:54→19:52)
[2018-01-02] MEDS: Potassium Chloride 10 mEq ER Tab PO SCH (09:28)
[2018-01-02] MEDS: POLYETHYLENE GLYCOL 3350 17 GM/Dose PACKET PO SCH (09:29)
[2018-01-02] MEDS: Pantoprazole 40 mg EC Tab PO SCH (09:30)
[2018-01-02] MEDS: oxyCODONE 20 mg ER Tab (oxyCONTIN) PO SCH ×2 (09:31→21:41)
--- NOTE | 2018-01-02 13:16 | PN ---
DATE: 01/02/2018 SUBJECTIVE: The patient is 57 years old, seen and examined. Mild shortness of breath. Intermittent tachycardia. Complained of back pain. Had bowel movement yesterday. PHYSICAL EXAMINATION: VITAL SIGNS: He is afebrile, pulse 111, respirations 20, blood pressure 99/72. LUNGS: Bilateral fair airflow decreased breath sound. HEART: S1 and S2 audible. Tachycardic. ABDOMEN: Soft. Nontender. No rebound. No guarding. NEUROLOGIC: He is awake, alert, oriented, communicative. He has palpable discomfort in the lumbar area. LABORATORY EXAM: His sodium 139, potassium 4.5, chloride 96, CO2 of 35, BUN 6, creatinine 0.6, blood sugar of 102. ASSESSMENT: 1. Chronic obstructive pulmonary disease exacerbation. 2. Sinus tachycardia. 3. Intractable back pain due to multiple compression fractures. 4. Chronic obstructive pulmonary disease. 5. Nonischemic cardiomyopathy. 6. Chronic low back pain and multiple compression fractures. 7. Chronic anemia. 8. Morbid obesity. PLAN: We will continue the patient on current medication. Discussed with Dr. De Campoverde. The patient is planned to have kyphoplasty done either tonight or tomorrow. Then we will make disposition plan for possible physical therapy. I will request for TCU evaluation. If he is a candidate, he can be transferred in the a.m. Ross Bowman MD
--- NOTE | 2018-01-02 16:49 | PN ---
DATE: 01/02/2018 PULMONARY PROGRESS NOTE SUBJECTIVE: The patient was seen and examined at the bedside. He states that his breathing has improved. He is less short of breath, coughing less and less expiratory wheezes. PHYSICAL EXAMINATION: VITAL SIGNS: Temperature is 97, pulse 111, respirations 20, pulse oximetry is 94 on room air, blood pressure is 99/72. HEENT: Examination of head, ears, nose and throat is within normal limits. NECK: Supple with no jugular vein distentions. CARDIOVASCULAR: S1, S2. No S3. Regular. PULMONARY: Diminished breath sounds bilaterally with diffuse expiratory wheezes. No rales. GI: Soft, nontender. No organomegaly. : No CVA tenderness. SKIN: Clear with no cyanosis and no skin rashes. NEUROLOGIC: Limited at the present time. ASSESSMENT: 1. Exacerbation of chronic obstructive pulmonary disease. 2. Chronic respiratory insufficiency. 3. Cardiomyopathy. 4. Rule out deep vein thrombosis. 5. Congestive heart failure. PLAN: We will continue with vigorous bronchodilator and inhaled corticosteroid therapy. Venous Dopplers will be done to rule out DVT, although it appears like chronic symmetrical lower extremity swelling. His pulse oximetry is acceptable. We will follow closely. Jp Lacy MD
[2018-01-03] MEDS: Levalbuterol 1.25 MG/3 ML Inhal Soln UD IH SCH ×4 (03:02→19:55)
--- NOTE | 2018-01-03 04:23 | CON ---
DATE: 01/02/2018 TIME: 7 p.m. CHIEF COMPLAINT AND HISTORY OF PRESENT ILLNESS: This is a 57-year-old gentleman, who was admitted with a COPD exacerbation. His past medical history is significant for atrial fibrillation, status post ablation and pulmonary artery hypertension. He is complaining of significant lumbar back pain, which has been acute on chronic. The pain is severe and interferes with his sleep. MRI of the lumbar spine demonstrated acute compression fractures at T12, L1, L2, and L5. He denies recent trauma other than bed transfers. He is tender to palpation in these locations. He has been evaluatedby neurosurgery, who recommended possible vertebroplasty/kyphoplasty. I had a long discussion with Mr. Cano concerning his back pain. There is a chronic component and acute fractures. His osteopenia is likely related to COPD and steroid use. He is frustrated by his current situation and would like a kyphoplasty procedure attempted. We will try to perform multiple lumbar kyphoplasties at L1, L2, and L5. This was discussed at length with the patient. De Campoverde MD MTDRoberto
[2018-01-03] MEDS: oxyCODONE 15 mg Immediate Release Tab PO PRN ×2 (05:19→15:36)
--- NOTE | 2018-01-03 06:53 | CP.PCM.PN ---
Subjective - Date & Time of Evaluation Date of Evaluation: 01/03/18 Time of Evaluation: 06:15 - Subjective Subjective: Awake, no distress, denies shortness of breath and chest pain, complaints of back pain (chronic) Reason for consultation and follow up:Cardiac evaluation, sinus tachycardia, atrial fibrillation post ablation, COPD, CHF Seen and examined by me and Dr. Samuel Objective - Vital Signs/Intake and Output Vital Signs (last 24 hours): Temp Pulse Resp BP Pulse Ox 97.6 F 113 H 20 111/57 L 96 01/02/18 18:00 01/02/18 18:00 01/02/18 18:00 01/02/18 18:00 01/02/18 18:00 Intake and Output: 01/02/18 01/03/18 18:59 06:59 Intake Total 540 Output Total 700 Balance -160 - Medications Medications: Current Medications Alprazolam (Xanax) 0.5 mg PO BID [facility] PRN Reason: Protocol Last Admin: 01/02/18 17:20 Dose: 0.5 mg Aspirin (Ecotrin) 81 mg PO DAILY [facility] Last Admin: 01/02/18 09:28 Dose: 81 mg Budesonide (Pulmicort Respules) 0.5 mg IH BIDRESP [facility] Last Admin: 01/02/18 19:52 Dose: 0.5 mg Furosemide (Lasix) 40 mg IVP DAILY [facility] Last Admin: 01/02/18 09:29 Dose: Not Given Gabapentin (Neurontin) 300 mg PO HS [facility] PRN Reason: Protocol Last Admin: 01/02/18 21:40 Dose: 300 mg Levalbuterol HCl (Xopenex) 1.25 mg IH [id number] [facility] Last Admin: 01/03/18 03:02 Dose: 1.25 mg Magnesium Oxide (Mag-Ox) 400 mg PO BID [facility] Last Admin: 01/01/18 18:09 Dose: 400 mg Montelukast Sodium (Singulair) 10 mg PO DAILY [facility] Last Admin: 01/02/18 09:30 Dose: 10 mg Oxycodone HCl (Oxycontin Extended Release Tab) 20 mg PO Q12 [facility] Last Admin: 01/02/18 21:41 Dose: 20 mg Oxycodone HCl (Oxycodone Immediate Release Tab) 15 mg PO Q6H PRN PRN Reason: Pain, moderate (4-7) Last Admin: 01/03/18 05:19 Dose: 15 mg Pantoprazole Sodium (Protonix Ec Tab) 40 mg PO DAILY [facility] Last Admin: 01/02/18 09:30 Dose: 40 mg Polyethylene Glycol (Miralax) 17 gm PO DAILY [facility] Last Admin: 01/02/18 09:29 Dose: 17 gm Potassium Chloride (Klor-Con 10) 10 meq PO DAILY [facility] Last Admin: 01/02/18 09:28 Dose: 10 meq Roflumilast (Daliresp) 500 mcg PO DAILY [facility] Last Admin: 01/02/18 09:28 Dose: 500 mcg Sotalol HCl (Betapace) 80 mg PO BID [facility] Last Admin: 01/02/18 17:18 Dose: 80 mg Verapamil HCl (Verapamil Inj) 2.5 mg IVP Q6H PRN PRN Reason: for heart rate >130 - Labs Labs: 12/30/17 07:30 12/31/17 06:30 PT 10.6 SECONDS (9.4-12.5) 12/28/17 04:03 INR 0.93 (0.93-1.08) 12/28/17 04:03 - Constitutional Appears: No Acute Distress - Head Exam Head Exam: NORMOCEPHALIC - Eye Exam Eye Exam: Normal appearance - ENT Exam ENT Exam: Mucous Membranes Moist - Respiratory Exam Respiratory Exam: Decreased Breath Sounds Additional comments: shortness of breath on exertion Nasal cannula - Cardiovascular Exam Cardiovascular Exam: +S1, +S2 - GI/Abdominal Exam GI & Abdominal Exam: Soft, Normal Bowel Sounds - Exam Additional comments: continent - Extremities Exam Extremities Exam: Normal Capillary Refill - Back Exam Additional comments: chronic back pain - Neurological Exam Neurological Exam: Alert, Awake, Oriented x3 - Psychiatric Exam Psychiatric exam: Normal Affect, Normal Mood - Skin Skin Exam: Intact, Normal Color, Warm Assessment and Plan - Assessment and Plan (Free Text) Assessment: A 57 year old male,who was brought to the ER by ambulance due to rapid heart rate (sinus tachycardia). History of COPD, paroxysmal atrial fibrillation status post ablation, CHF, CAD, [place], Hypertension, and chronic back pain. Recently discharged from rehab post hospitalization for CHF and rectal bleeding from hemorrhoids requiring blood transfusion.For possible kyphoplasty (back pain ) Plan: For possible kyphoplasty (chronic back pain) Dr. Campoverde on consult for possible kyphoplasty Cardiac status stable Blood pressure controlled Still Complaining of back pain. PRN pain medication On ASA 81 mg daily, Lasix 40 mg daily, Sotalol 80 mg BID, PRN Verapamil for HR above 130 Continue current medications Continue current treatment Will follow up Plan and treatment discussed with Dr. Samuel
[2018-01-03] MEDS: Budesonide 0.5 mg/2 ml Inhal Susp UD IH SCH ×2 (07:36→19:55)
[2018-01-03 08:27] VITALS: TEMP 97.9
--- NOTE | 2018-01-03 08:42 | PN ---
DATE: 01/03/2018 PULMONARY NOTE SUBJECTIVE: The patient appears comfortable this morning. He is not short of breath at rest. OBJECTIVE: VITAL SIGNS: Last temperature recorded is 97.6, pulse this morning is approximately 90, respiratory rate 18/20, blood pressure 111/57. Oxygen saturation on room air is 96%. HEENT: Normocephalic, atraumatic. No JVD. CARDIOVASCULAR: Systolic ejection murmur at the lower left sternal border. No S3 gallop. LUNGS; Minimal bilateral rhonchi. No wheezing. EXTREMITIES: Positive for mild edema. No cyanosis or clubbing. Calves are nontender to palpation. GASTROINTESTINAL: Abdomen is soft, nontender, nondistended. Bowel sounds are positive. SKIN: No acute rash. NEUROLOGIC: Exam limited at the present time. IMPRESSION: 1. Advanced chronic obstructive pulmonary disease. 2. Mild bronchospasm. 3. Coronary artery disease. 4. Atrial fibrillation. 5. Lumbar compression fractures. PLAN: The patient appears comfortable this morning. He is not short of breath at rest. He does state to feeling better overall. On physical exam, there is no significant bronchospasm noted. In addition, there is no significant alveolar-arterial gradient. Oxygen saturation on room air is currently 96%. I will continue with the current pulmonary medications for now. I did review the note by Dr. De Campoverde. The patient is for kyphoplasty in the near future. His overall status/prognosis does remain guarded. Input by Cardiology is also noted. I will discuss the above with the attending physician. Mnae Pineda MD MTDD
[2018-01-03] MEDS ORDERED: oxyCODONE 15 mg Immediate Release Tab PO PRN (09:02)
[2018-01-03] MEDS: POLYETHYLENE GLYCOL 3350 17 GM/Dose PACKET PO SCH (09:28)
[2018-01-03] MEDS: Pantoprazole 40 mg EC Tab PO SCH (09:29)
[2018-01-03] MEDS: oxyCODONE 20 mg ER Tab (oxyCONTIN) PO SCH ×2 (11:18→21:01)
--- NOTE | 2018-01-03 14:52 | PN ---
DATE: 01/03/2018 SUBJECTIVE: The patient is 57 years old, seen and examined, sitting in a chair, complained of mild shortness of breath and intractable back pain, just back pain medication, scheduled to have kyphoplasty done. PHYSICAL EXAMINATION: GENERAL: He is awake, alert, oriented, and communicative. VITAL SIGNS: He is afebrile, pulse 109, respirations 22, and blood pressure 100/66. LUNGS: Bilateral diffusely decreased breath sounds. HEART: S1 and S2 audible. ABDOMEN: Soft, nontender. No rebound. No guarding. NEUROLOGIC: The patient is awake, alert, oriented, able to communicate. EXTREMITIES: Bilateral leg, no edema. ASSESSMENT: 1. Chronic obstructive pulmonary disease exacerbation. 2. Non-ischemic cardiomyopathy. 3. Congestive heart failure. 4. Intractable back pain. 5. Multiple compression fracture of lumbar and thoracic spine. Patient is scheduled for lumbar kyphoplasty today. PLAN: Analgesic as needed. Continue on current medication including sotalol, Daliresp, aspirin 81 daily. He is on magnesium 400 twice a day and getting MiraLax, gabapentin. We will reevaluate in the a.m. The patient is going for kyphoplasty in later afternoon. Ross Bowman MD
[2018-01-03] MEDS ORDERED: Lidocaine 2% Inj (20ml) ONE ×2 (17:09→18:19)
[2018-01-03] MEDS ORDERED: Midazolam 2 MG/2 ML VIAL ONE ×3 (17:10→18:00)
[2018-01-03] MEDS ORDERED: Flumazenil 0.1 mg/ml Inj (5ml) IVP ONE (18:36)
[2018-01-03] MEDS: Magnesium Oxide 400 mg Tab UD PO SCH (18:45)
[2018-01-03] MEDS ORDERED: Sodium Chloride 0.45% 1,000 ML IV SCH (19:00)
[2018-01-03] MEDS: Oxycodone/Acetaminophen 5/325 mg Tab PO PRN (19:35)
[2018-01-03] MEDS ORDERED: Oxycodone/Acetaminophen 5/325 mg Tab ONE (19:37)
[2018-01-03 19:46] VITALS: RESP 15; O2SAT 94
[2018-01-04] MEDS: oxyCODONE 15 mg Immediate Release Tab PO PRN ×3 (00:28→13:34)
[2018-01-04] MEDS: Levalbuterol 1.25 MG/3 ML Inhal Soln UD IH SCH ×4 (02:49→13:45)
[2018-01-04 07:07] LABS: BASO # 0.04 K/mm3 (0.0-2.0); BASO % 0.8 % (0.0-3.0); EOS # 0.2 (0.0-0.7); GRAN # 3.81 (1.4-6.5); GRAN % 72.2 % (50.0-68.0); HEMOGLOBIN 8.2 g/dL (14.0-18.0); LYMPH # 0.6 (1.2-3.4); MEAN CELL VOLUME 78.1 fl (80.0-105.0); MEAN CORPUSCULAR HEMOGLOBIN 22.8 pg (25.0-35.0); MEAN CORPUSCULAR HGB CONC 29.2 g/dl (31.0-37.0); MEAN PLATELET VOLUME 9.4 fl (7.0-11.0); MONO # 0.6 (0.1-0.6); RBC 3.6 10^6/uL (3.5-6.1); RED CELL DISTRIBUTION WIDTH 15.2 % (11.5-14.5); WHITE BLOOD COUNT 5.3 10^3/ul (4.5-11.0)
[2018-01-04 07:29] LABS: BLOOD UREA NITROGEN 8 mg/dL (7-21); CALCIUM 8.8 mg/dL (8.4-10.5); GFR AFRICAN-AMERICAN > 60; GFR NON-AFRICAN AMERICAN > 60
--- NOTE | 2018-01-04 07:59 | CP.PCM.PN ---
Subjective - Date & Time of Evaluation Date of Evaluation: 01/04/18 Time of Evaluation: 06:25 - Subjective Subjective: Awake, no distress, complaints of back pain (post kyphoplasty),denies shortness of breath and chest pain, Reason for consultation and follow up:Cardiac evaluation, sinus tachycardia, atrial fibrillation post ablation, COPD, CHF Seen and examined by me and Dr. Samuel Objective - Vital Signs/Intake and Output Vital Signs (last 24 hours): Temp Pulse Resp BP Pulse Ox 97.9 F 92 H 15 100/60 94 L 01/03/18 19:44 01/03/18 19:44 01/03/18 19:44 01/03/18 19:44 01/03/18 19:44 Intake and Output: 01/04/18 01/04/18 06:59 18:59 Intake Total 600 Output Total 400 Balance 200 - Medications Medications: Current Medications Acetaminophen (Tylenol 325mg Tab) 650 mg PO Q4 PRN PRN Reason: Pain, Mild (1-3) Alprazolam (Xanax) 0.5 mg PO BID [facility] PRN Reason: Protocol Last Admin: 01/03/18 18:45 Dose: Not Given Aspirin (Ecotrin) 81 mg PO DAILY [facility] Last Admin: 01/03/18 09:29 Dose: 81 mg Budesonide (Pulmicort Respules) 0.5 mg IH BIDRESP [facility] Last Admin: 01/03/18 19:55 Dose: Not Given Gabapentin (Neurontin) 300 mg PO HS [facility] PRN Reason: Protocol Last Admin: 01/03/18 21:01 Dose: 300 mg Sodium Chloride (Sodium Chloride 0.45%) 1,000 mls @ 80 mls/hr IV .[id number] [facility] Stop: 01/04/18 12:00 Levalbuterol HCl (Xopenex) 1.25 mg IH [id number] [facility] Last Admin: 01/04/18 02:49 Dose: Not Given Magnesium Oxide (Mag-Ox) 400 mg PO BID [facility] Last Admin: 01/03/18 18:45 Dose: Not Given Montelukast Sodium (Singulair) 10 mg PO DAILY [facility] Last Admin: 01/03/18 09:30 Dose: 10 mg Ondansetron HCl (Zofran Inj) 4 mg IVP Q6H PRN PRN Reason: Nausea/Vomiting Oxycodone HCl (Oxycontin Extended Release Tab) 20 mg PO Q12 [facility] Last Admin: 01/03/18 21:01 Dose: 20 mg Oxycodone HCl (Oxycodone Immediate Release Tab) 15 mg PO Q6H PRN PRN Reason: Pain, moderate (4-7) Last Admin: 01/04/18 06:36 Dose: 15 mg Oxycodone/Acetaminophen (Percocet 5/325 Mg Tab) 1 tab PO Q4H PRN PRN Reason: Pain, moderate (4-7) Stop: 01/06/18 19:00 Last Admin: 01/03/18 19:35 Dose: 1 tab Pantoprazole Sodium (Protonix Ec Tab) 40 mg PO DAILY [facility] Last Admin: 01/03/18 09:29 Dose: 40 mg Polyethylene Glycol (Miralax) 17 gm PO DAILY [facility] Last Admin: 01/03/18 09:28 Dose: Not Given Roflumilast (Daliresp) 500 mcg PO DAILY [facility] Last Admin: 01/03/18 09:30 Dose: 500 mcg Sotalol HCl (Betapace) 80 mg PO BID [facility] Last Admin: 01/03/18 18:45 Dose: Not Given Verapamil HCl (Verapamil Inj) 2.5 mg IVP Q6H PRN PRN Reason: for heart rate >130 - Labs Labs: 01/04/18 06:00 01/04/18 06:00 PT 10.6 SECONDS (9.4-12.5) 12/28/17 04:03 INR 0.93 (0.93-1.08) 12/28/17 04:03 - Constitutional Appears: In Acute Distress - Head Exam Head Exam: NORMOCEPHALIC - Eye Exam Eye Exam: Normal appearance - ENT Exam ENT Exam: Mucous Membranes Moist - Respiratory Exam Respiratory Exam: Decreased Breath Sounds, NORMAL BREATHING PATTERN - Cardiovascular Exam Cardiovascular Exam: +S1, +S2 - GI/Abdominal Exam GI & Abdominal Exam: Soft, Normal Bowel Sounds - Extremities Exam Extremities Exam: Normal Capillary Refill Additional comments: 1+ edema - Neurological Exam Neurological Exam: Alert, Awake, Oriented x3 - Psychiatric Exam Psychiatric exam: Normal Affect, Normal Mood - Skin Skin Exam: Intact, Normal Color, Warm Assessment and Plan - Assessment and Plan (Free Text) Assessment: A 57 year old male,who was brought to the ER by ambulance due to rapid heart rate (sinus tachycardia). History of COPD, paroxysmal atrial fibrillation status post ablation, CHF, CAD, [place], Hypertension, and chronic back pain. Recently discharged from rehab post hospitalization for CHF and rectal bleeding from hemorrhoids requiring blood transfusion. kyphoplasty (back pain) Plan: Kyphoplasty done yesterday(chronic back pain) Still Complaining of back pain. PRN pain medication Cardiac status stable Blood pressure controlled On ASA 81 mg daily, Lasix 40 mg daily, Sotalol 80 mg BID, PRN Verapamil for HR above 130 Continue current medications Continue current treatment Will follow up Plan and treatment discussed with Dr. Samuel
[2018-01-04] MEDS: Budesonide 0.5 mg/2 ml Inhal Susp UD IH SCH (08:37)
--- NOTE | 2018-01-04 09:03 | PN ---
DATE: 01/04/2018 PULMONARY NOTE SUBJECTIVE: The patient appears comfortable this morning. He is not short of breath at rest. PHYSICAL EXAMINATION: VITAL SIGNS (Last noted in the computer): Temperature is 97.9, pulse 92, respirations 15, blood pressure 100/60. Oxygen saturation on nasal cannula is 94%-96%. HEENT: Normocephalic, atraumatic. No JVD. CARDIOVASCULAR: Systolic ejection murmur at the lower left sternal border. No S3 gallop. LUNGS: Very minimal/less rhonchi. No wheezing. EXTREMITIES: Positive for mild edema. No cyanosis or clubbing. Calves are nontender to palpation. GASTROINTESTINAL: Abdomen is soft, nontender, and nondistended. Bowel sounds are positive. SKIN: No acute rash. NEUROLOGIC: Limited at the present time. IMPRESSION: 1. Advanced chronic obstructive pulmonary disease. 2. Mild bronchospasm - resolving. 3. Coronary artery disease. 4. Atrial fibrillation. 5. Lumbar compression fractures. Status post kyphoplasty. PLAN: The patient appears comfortable this morning. He is not short of breath at rest. He does state to feeling better overall. On physical exam, there is no significant bronchospasm noted. In addition, there is no significant alveolar-arterial gradient. I will continue with the current pulmonary medications for now. Inputs by Cardiology and Interventional Radiology are also noted. The patient is status post kyphoplasty. Clinical status of the patient has certainly improved overall. I will discuss the above with the attending physician. Mane Pineda MD MTDD
[2018-01-04] MEDS: Pantoprazole 40 mg EC Tab PO SCH (09:59)
[2018-01-04] MEDS: Magnesium Oxide 400 mg Tab UD PO SCH (10:00)
[2018-01-04] MEDS: oxyCODONE 20 mg ER Tab (oxyCONTIN) PO SCH (10:00)
[2018-01-04] MEDS: POLYETHYLENE GLYCOL 3350 17 GM/Dose PACKET PO SCH (10:01)
[2018-01-04 10:12] VITALS: BP 106/65; PULSE 62
--- NOTE | 2018-01-04 14:12 | IP.NPCORE ---
COPD Progress Note - COPD Progress Note FEV1/FVC<70: No Plan to assess at outpatient follow up: Yes Symptoms:: Increase in Dyspnea Initial CXR:: no active disease Date:: 12/28/17
--- NOTE | 2018-01-04 14:22 | VASCULAR ---
PROCEDURE: 1. L1 kyphoplasty 2. L2 kyphoplasty 3. L5 kyphoplasty and biopsy HISTORY: Severe refractory lumbar back pain. Unresponsive to conservative measures including at bedrest, analgesics, and physical therapy. Multiple old and new compression fractures on MRI. Acute L1, L2, and L5 compression fractures PHYSICIAN(S): De Campoverde MD. TECHNIQUE: he relative risks and indications of the procedure were explained to the patient and informed written consent obtained. The patient was placed prone on the arteriography table and the thoracolumbar spine prepped and draped in the usual sterile fashion. Conscious sedation and monitoring were provided throughout the procedure by a nurse. The L5 vertebral body was carefully localized with fluoroscopy. The skin and soft tissues were anesthetized with 1% Xylocaine. Under direct fluoroscopic guidance, bilateral transpedicular bone needles were placed into the posterior aspect of the L5 vertebral body. Through the right needle, a biopsy of the [id number] body was performed. The specimen was sent to histology. Next bilateral 15mm bone balloons were placed in the medial portion of the L5 vertebral body. They were inflated to approximately 4 cc apiece with dilute contrast. The balloons were removed and 6 cc of barium-impregnated PMMA cement instilled into the L5 vertebral body. No extravasation was seen. The bone needles were removed. Next to the L2 vertebral body was localized with fluoroscopy. Skin and soft tissues were anesthetized 1 percent xylocaine. Bilateral transpedicular bone needles were placed into the anterior inferior aspect of the L2 vertebral body. Exchange is made for 15 mm bone balloons. The balloons were inflated to 4 cc apiece with dilute contrast. The balloons were removed and 6 cc of barium -impregnated PMMA cement instilled into L2 vertebral body. No extravasation was noted. Finally the L1 vertebral body was localized with fluoroscopy. The skin and soft tissues were anesthetized 1 percent xylocaine. Once again bilateral transpedicular bone needles were placed into the anterior and inferior aspect of the L1 vertebral body. Exchange is made for 15 mm bone balloons. The balloons were inflated to 4 cc apiece with dilute contrast. The balloons were removed and 7.5 cc of barium impregnated PMMA cement instilled into L1 vertebral body. No extravasation was noted. The patient tolerated the procedure well IMPRESSION: 1. L5 vertebral body biopsy and kyphoplasty. 2. L2 vertebral body kyphoplasty 3. L1 vertebral body kyphoplasty
[2018-01-04] MEDS: Oxycodone/Acetaminophen 5/325 mg Tab PO PRN (15:40)
--- NOTE | 2018-01-04 17:19 | PN ---
DATE: 01/04/2018 SUBJECTIVE: The patient is 57 years old, seen and examined, lying in bed, states he is so since yesterday's procedure. Complained of mild shortness of breath. No nausea or vomiting. No diarrhea. PHYSICAL EXAMINATION: VITAL SIGNS: The patient is afebrile, pulse 62, respirations 15, blood pressure 106/65. LUNGS: Bilateral diffusely decreased breath sounds. Occasional rhonchi. HEART: S1 and S2 audible. ABDOMEN: Soft. Nontender. No rebound. No guarding. NEUROLOGICAL: The patient is awake, alert, oriented, communicative. LABORATORY EXAM: WBC is 5.3, hemoglobin 8.2, hematocrit 28, and platelets of 311. Chemistry: Sodium 139, potassium 4.7, chloride 98, CO2 of 33. BUN 8, creatinine 0.7. Blood sugar of 100. Blood cultures are negative. ASSESSMENT: 1. Status post kyphoplasty. 2. Hypertension. 3. Congestive heart failure. 4. Dilated cardiomyopathy. 5. Chronic anemia. 6. Multiple lumbar fracture. PLAN: The patient will be encouraged for ambulation. I will give a dose of Venofer and give him analgesic as needed. If accepted in TCU, can be transferred later on today. Ross Bowman MD
== END 2018-01-04 16:59 | DRG 478 ==
LOC: ED 03:56 → ERH 06:07 → 2RSO 08:50 → 3RSO 01-01 14:36
PROVIDERS: ADMIT Internal Medicine; ATTEND Internal Medicine
PROC: 3E0F7GC Introduction of Other Therapeutic Substance into Respiratory Tract, Via Natural or Artificial Opening (ICD-10-PCS; 2017-12-28)
PROC: 0QS03ZZ Reposition Lumbar Vertebra, Percutaneous Approach (ICD-10-PCS; principal; 2018-01-03)
PROC: 0QB03ZX Excision of Lumbar Vertebra, Percutaneous Approach, Diagnostic (ICD-10-PCS; 2018-01-03)
PROC: 0QU03JZ Supplement Lumbar Vertebra with Synthetic Substitute, Percutaneous Approach (ICD-10-PCS; 2018-01-03)
DX: M48.56XA Collapsed vertebra, not elsewhere classified, lumbar region, initial encounter for fracture (principal); J44.1 Chronic obstructive pulmonary disease with (acute) exacerbation; I42.0 Dilated cardiomyopathy; M54.17 Radiculopathy, lumbosacral region; M48.54XA Collapsed vertebra, not elsewhere classified, thoracic region, initial encounter for fracture; F41.9 Anxiety disorder, unspecified; G89.29 Other chronic pain; I50.9 Heart failure, unspecified; I11.0 Hypertensive heart disease with heart failure; I25.10 Atherosclerotic heart disease of native coronary artery without angina pectoris; I27.21 Secondary pulmonary arterial hypertension; I48.91 Unspecified atrial fibrillation; R00.0 Tachycardia, unspecified; I25.2 Old myocardial infarction; D64.9 Anemia, unspecified; K59.00 Constipation, unspecified; Z99.81 Dependence on supplemental oxygen

== ENCOUNTER 2018-01-04 16:23 | Inpatient (IN) | payer OTHER, MEDICAID ==
[2018-01-04 17:08] VITALS: BMI 25.7
[2018-01-04] MEDS ORDERED: Oxycodone/Acetaminophen 5/325 mg Tab PO PRN (17:52)
[2018-01-04] MEDS: Magnesium Oxide 400 mg Tab UD PO SCH (19:28)
[2018-01-04] MEDS: Levalbuterol 1.25 MG/3 ML Inhal Soln UD IH SCH (20:53)
[2018-01-04] MEDS: Budesonide 0.5 mg/2 ml Inhal Susp UD IH SCH (20:53)
[2018-01-04] MEDS: oxyCODONE 20 mg ER Tab (oxyCONTIN) PO SCH (21:14)
[2018-01-04] MEDS ORDERED: Levalbuterol 1.25 MG/3 ML Inhal Soln UD IH STA (23:33)
[2018-01-04] MEDS: oxyCODONE 15 mg Immediate Release Tab PO PRN (23:36)
--- NOTE | 2018-01-05 03:47 | CP.PCM.PN ---
Subjective - Date & Time of Evaluation Date of Evaluation: 01/05/18 Time of Evaluation: 03:44 - Subjective Subjective: Patient was seen because of shortness of breath. Has no other complaints. Had recently received Xopenex treatment. Denies chest pain , sob, nausea, sweating. Medical record was reviewed. This 57 year old white male was admitted with rectal bleeding,respiratory distress. Has PMH of CHF,COPD, HTN, atrial fibrillation, DJD, anemia, anxiety. Objective - Vital Signs/Intake and Output Vital Signs (last 24 hours): Temp Pulse Resp BP Pulse Ox 98.4 F 110 H 20 105/69 96 01/05/18 00:00 01/05/18 00:00 01/05/18 00:00 01/05/18 00:00 01/05/18 00:12 - Medications Medications: Current Medications Acetaminophen (Tylenol 325mg Tab) 650 mg PO Q4 PRN PRN Reason: Pain, Mild (1-3) Alprazolam (Xanax) 0.5 mg PO BID ERNESTINA PRN Reason: Protocol Last Admin: 01/04/18 19:33 Dose: 0.5 mg Aspirin (Ecotrin) 81 mg PO 0800 ERNESTINA Budesonide (Pulmicort Respules) 0.5 mg IH BIDRESP [facility] Last Admin: 01/04/18 20:53 Dose: 0.5 mg Gabapentin (Neurontin) 300 mg PO HS ERNESTINA PRN Reason: Protocol Last Admin: 01/04/18 21:14 Dose: 300 mg Levalbuterol HCl (Xopenex) 1.25 mg IH [id number] [facility] Last Admin: 01/04/18 20:53 Dose: 1.25 mg Magnesium Oxide (Mag-Ox) 400 mg PO BID [facility] Last Admin: 01/04/18 19:28 Dose: 400 mg Montelukast Sodium (Singulair) 10 mg PO DAILY [facility] Ondansetron HCl (Zofran Inj) 4 mg IVP Q6H PRN PRN Reason: Nausea/Vomiting Oxycodone HCl (Oxycodone Immediate Release Tab) 15 mg PO Q6H PRN PRN Reason: moderate pain (4-7) Last Admin: 01/04/18 23:36 Dose: 15 mg Oxycodone HCl (Oxycontin Extended Release Tab) 20 mg PO Q12 [facility] Last Admin: 01/04/18 21:14 Dose: 20 mg Oxycodone/Acetaminophen (Percocet 5/325 Mg Tab) 1 tab PO Q4H PRN PRN Reason: moderate pain (4-7) Stop: 01/07/18 17:53 Pantoprazole Sodium (Protonix Ec Tab) 40 mg PO 0630 [facility] Polyethylene Glycol (Miralax) 17 gm PO DAILY [facility] Roflumilast (Daliresp) 500 mcg PO DAILY [facility] Sotalol HCl (Betapace) 80 mg PO BID [facility] Last Admin: 01/04/18 23:49 Dose: 80 mg Verapamil HCl (Verapamil Inj) 2.5 mg IVP Q6H PRN PRN Reason: for heart rate >130 - Constitutional Appears: Well, No Acute Distress - Head Exam Head Exam: ATRAUMATIC, NORMAL INSPECTION, NORMOCEPHALIC - Eye Exam Eye Exam: Normal appearance - ENT Exam ENT Exam: Normal External Ear Exam - Neck Exam Neck Exam: Normal Inspection - Respiratory Exam Respiratory Exam: Wheezes (Bilateral.), NORMAL BREATHING PATTERN. absent: Accessory Muscle Use, Prolonged Expiratory Phase, Rales, Rhonchi, Stridor - Cardiovascular Exam Cardiovascular Exam: absent: JVD - GI/Abdominal Exam GI & Abdominal Exam: absent: Distended - Rectal Exam Rectal Exam: Deferred - Exam Exam: NORMAL INSPECTION - Extremities Exam Extremities Exam: Normal Inspection - Back Exam Back Exam: NORMAL INSPECTION - Neurological Exam Neurological Exam: Alert, Awake, Oriented x3 - Psychiatric Exam Psychiatric exam: Normal Affect, Normal Mood - Skin Skin Exam: Normal Color Assessment and Plan - Assessment and Plan (Free Text) Assessment: Dyspnea. COPD. CHF. Anemia. DJD. HYN. Atrial fibrillation. Plan: Xopenex 1.25 mg as nebulizer treatment. Continue present management.
[2018-01-05] MEDS: Pantoprazole 40 mg EC Tab PO SCH ×2 (05:17→05:57)
[2018-01-05] MEDS: oxyCODONE 15 mg Immediate Release Tab PO PRN ×2 (05:23→14:56)
[2018-01-05 07:22] LABS: BASO # 0.03 K/mm3 (0.0-2.0); BASO % 0.6 % (0.0-3.0); EOS # 0.2 (0.0-0.7); EOS % 3.5 % (1.5-5.0); GRAN # 3.74 (1.4-6.5); HEMOGLOBIN 8.1 g/dL (14.0-18.0); LYMPH # 0.7 (1.2-3.4); LYMPH % 12.9 % (22.0-35.0); MEAN CELL VOLUME 77.7 fl (80.0-105.0); MEAN CORPUSCULAR HEMOGLOBIN 23.5 pg (25.0-35.0); MEAN CORPUSCULAR HGB CONC 30.2 g/dl (31.0-37.0); MEAN PLATELET VOLUME 9.5 fl (7.0-11.0); MONO # 0.6 (0.1-0.6); RBC 3.45 10^6/uL (3.5-6.1); RED CELL DISTRIBUTION WIDTH 15.2 % (11.5-14.5); WHITE BLOOD COUNT 5.2 10^3/ul (4.5-11.0)
[2018-01-05] MEDS: Budesonide 0.5 mg/2 ml Inhal Susp UD IH SCH ×2 (07:24→20:20)
[2018-01-05] MEDS: Levalbuterol 1.25 MG/3 ML Inhal Soln UD IH SCH ×3 (07:24→20:20)
[2018-01-05 08:05] LABS: ALB/GLOB RATIO 1.3 (1.1-1.8); ALBUMIN 3.1 g/dL (3.0-4.8); ALT/SGPT 22 U/L (7-56); AST/SGOT 23 U/L (17-59); BLOOD UREA NITROGEN 7 mg/dL (7-21); CALCIUM 8.8 mg/dL (8.4-10.5); GFR AFRICAN-AMERICAN > 60; GFR NON-AFRICAN AMERICAN > 60
--- NOTE | 2018-01-05 08:44 | PN ---
DATE: 01/05/2018 PULMONARY NOTE SUBJECTIVE: The patient appears comfortable this morning. He is not short of breath at rest. PHYSICAL EXAMINATION: VITAL SIGNS: Temperature is 98.5, pulse this morning is approximately 88, respiratory rate 18/20, blood pressure last recorded 88/61. Oxygen saturation on nasal cannula is 90-96%. HEENT: Normocephalic, atraumatic. No JVD. CARDIOVASCULAR: Systolic ejection murmur at the lower left sternal border. No S3 gallop. LUNGS: Very minimal/less rhonchi bilaterally. No wheezing. EXTREMITIES: Positive for mild edema. No cyanosis. No clubbing. Calves are nontender to palpation. GI: Abdomen is soft, nontender and nondistended. Bowel sounds are positive. SKIN: No acute rash. NEUROLOGIC: Limited at the present time. IMPRESSION: 1. Advanced chronic obstructive pulmonary disease. 2. Mild bronchospasm. 3. Coronary artery disease. 4. Atrial fibrillation. 5. Lumbar compression fractures. Status post kyphoplasty. PLAN: The patient appears comfortable at the present time. He is not short of breath at rest. He does state to feeling better overall. I did discuss the case with the night nurse at length. The night nurse stated that the patient did have an episode of shortness of breath(during her shift) - relieved with a nebulizer treatment. At the time of my examination, the patient is not in significant bronchospasm at all. I will continue with the current nebulizer treatments, and add a p.r.n. dosage for the patient. The patient is status post kyphoplasty. Reevaluation with Dr. Campoverde has been ordered. Clinical status of the patient is significantly improved overall. However, his future status/prognosis does remain somewhat guarded - as he continues to have advanced lung disease. The patient did request that I follow him throughout this hospital admission. He is now on the transitional unit - where he will participate physical therapy. I will discuss the above with the attending physician. Mane Pineda MD [facility]
[2018-01-05] MEDS: Magnesium Oxide 400 mg Tab UD PO SCH ×2 (10:06→17:53)
[2018-01-05] MEDS: POLYETHYLENE GLYCOL 3350 17 GM/Dose PACKET PO SCH (10:07)
[2018-01-05] MEDS: oxyCODONE 20 mg ER Tab (oxyCONTIN) PO SCH ×2 (10:09→22:02)
[2018-01-06] MEDS: Levalbuterol 1.25 MG/3 ML Inhal Soln UD IH SCH ×5 (01:00→21:20)
--- NOTE | 2018-01-06 03:11 | HP ---
HISTORY OF PRESENT ILLNESS: The patient is 57 years old, known to me from multiple previous admissions, came to emergency room because of chest pressure, rapid heart rate, and shortness of breath. Patient was also complaining of intractable back pain. Patient was started on his usual medication. He had MRI done that shows multiple compression fractures in the lumbar spine and also has a compression fracture in the thoracic area. Dr. De Campoverde was consulted. Patient underwent kyphoplasty yesterday, being transferred to TCU for rehab. PAST MEDICAL HISTORY: He has past medical history significant for; 1. Nonischemic cardiomyopathy. 2. COPD. 3. Hypertension. 4. Hyperlipidemia. 5. Chronic anemia. 6. Chronic degenerative disk disease. 7. Opioid dependence. ALLERGIES: HE IS NOT ALLERGIC TO ANY MEDICATIONS. MEDICATIONS AT HOME: As per MAR, he is on Zanaflex, prednisone, verapamil, Spiriva, sotalol, pantoprazole, oxycodone, montelukast, Lasix, ferrous sulfate, and Xanax. REVIEW OF SYSTEMS: Significant for back pain and shortness of breath. PHYSICAL EXAMINATION: GENERAL: He is awake, alert, oriented, communicative. VITAL SIGNS: He is afebrile, pulse 100, respirations 22, blood pressure 100/64. LUNGS: Bilateral fair airflow. No rhonchi or crackle. HEART: S1, S2 audible. ABDOMEN: Soft, nontender, obese. No hepatosplenomegaly. NEUROLOGICAL: He is awake, alert, oriented, able to communicate. Complained of low back pain. LABORATORY DATA: WBC is 5.2, hemoglobin 8.1, hematocrit 26.8, platelet of 270. Chemistry: Sodium 139, potassium 4.3, chloride 100, CO2 of 33, BUN 7, creatinine 0.7, blood sugar of 107. LFTs are within normal limit. ASSESSMENT: 1. Status post kyphoplasty for lumbar spine multiple compression fractures. 2. Nonischemic cardiomyopathy. 3. Hypertension. 4. Hyperlipidemia. 5. Status post radiofrequency ablation for chronic atrial fibrillation, currently in sinus rhythm. PLAN: We will continue patient on current medication. He is requesting to cut down his p.r.n. medication. He want to get rid of opioids, he states he has . We will keep him on slow-release MS Contin 20 mg twice a day. Encourage physical therapy. We will follow up his labs intermittently. Ross Bowman MD
[2018-01-06] MEDS: oxyCODONE 10 mg Immediate Release Tab PO PRN ×2 (05:29→15:18)
[2018-01-06] MEDS: Pantoprazole 40 mg EC Tab PO SCH (06:21)
[2018-01-06] MEDS: Budesonide 0.5 mg/2 ml Inhal Susp UD IH SCH ×2 (07:34→21:20)
[2018-01-06] MEDS: Magnesium Oxide 400 mg Tab UD PO SCH ×2 (10:12→17:44)
[2018-01-06] MEDS: POLYETHYLENE GLYCOL 3350 17 GM/Dose PACKET PO SCH (10:12)
[2018-01-06] MEDS: oxyCODONE 20 mg ER Tab (oxyCONTIN) PO SCH ×2 (10:13→21:28)
--- NOTE | 2018-01-06 23:32 | PN ---
DATE: 01/06/2018 SUBJECTIVE: Patient is 57 years old, seen and examined, lying in bed, seems to be comfortable. States he was very short of breath after physical therapy yesterday, but it took him long time to recuperate. PHYSICAL EXAMINATION: VITAL SIGNS: Temperature 99.4, pulse 95, respirations 20, blood pressure 91/62. LUNGS: Bilateral diffusely decreased breath sounds. HEART: S1 and S2 audible. ABDOMEN: Soft. Nontender. No rebound. No guarding. NEUROLOGICAL: He is awake, alert, oriented, able to communicate. Moving all extremities. EXTREMITIES: Bilateral legs edema. ASSESSMENT: 1. Chronic obstructive pulmonary disease exacerbation. 2. Compression fracture of lumbar and thoracic area, status post lumbar kyphoplasty. 3. Nonischemic cardiomyopathy. 4. Chronic anemia. 5. Hypotension. 6. Chronic degenerative disk disease. PLAN: We will continue patient on current medication. We will monitor his blood pressure closely. If blood pressure drops below 90, we might add midodrine. Continue nebulizer treatment. Ross Bowman MD
[2018-01-07] MEDS: Levalbuterol 1.25 MG/3 ML Inhal Soln UD IH SCH ×4 (01:37→21:44)
[2018-01-07] MEDS: oxyCODONE 10 mg Immediate Release Tab PO PRN ×2 (03:23→17:21)
[2018-01-07] MEDS: Pantoprazole 40 mg EC Tab PO SCH (05:32)
[2018-01-07] MEDS: Budesonide 0.5 mg/2 ml Inhal Susp UD IH SCH ×2 (07:35→21:44)
[2018-01-07] MEDS: oxyCODONE 20 mg ER Tab (oxyCONTIN) PO SCH ×2 (09:15→21:23)
[2018-01-07] MEDS: Magnesium Oxide 400 mg Tab UD PO SCH ×2 (09:16→17:14)
[2018-01-07] MEDS: POLYETHYLENE GLYCOL 3350 17 GM/Dose PACKET PO SCH (09:24)
--- NOTE | 2018-01-07 22:50 | PN ---
DATE: 01/07/2018 SUBJECTIVE: The patient is 57 years old, seen and examined, complain of feeling tired and exhausted. He has a couple of bowel movements this morning and he feels nauseous and does not have appetite. PHYSICAL EXAMINATION VITAL SIGNS: He is afebrile, pulse 94, respirations 20 and blood pressure 92/55. LUNGS: Bilateral fair airflow, diffusely decreased breath sounds. HEART: S1 and S2 audible. ABDOMEN: Soft. Nontender. Obese . There is no hepatosplenomegaly. NEUROLOGICAL: The patient is awake, alert, oriented and communicative. EXTREMITIES: Bilateral legs, no edema. LABORATORY DATA: His blood sugar is 98. ASSESSMENT AND PLAN: 1. Diarrhea probably secondary to laxative. 2. Chronic obstructive pulmonary disease. 3. Nonischemic cardiomyopathy. 4. Chronic back pain and recent kyphoplasty of lumbar compression fracture. PLAN: We will hold his Colace, continue him on aspirin and also hold magnesium oxide that could cause diarrhea too. I will hold MiraLax and continue him on gabapentin, oxycodone, and I will give him a dose of Zofran as needed. We will follow up the patient. Ross Bowman MD
[2018-01-08] MEDS: Levalbuterol 1.25 MG/3 ML Inhal Soln UD IH SCH ×4 (01:38→22:00)
[2018-01-08] MEDS: oxyCODONE 10 mg Immediate Release Tab PO PRN ×2 (05:07→16:07)
[2018-01-08] MEDS: Pantoprazole 40 mg EC Tab PO SCH (06:20)
[2018-01-08 07:21] LABS: ALB/GLOB RATIO 1.3 (1.1-1.8); ALBUMIN 3.1 g/dL (3.0-4.8); ALT/SGPT 20 U/L (7-56); AST/SGOT 15 U/L (17-59); BLOOD UREA NITROGEN 8 mg/dL (7-21); CALCIUM 8.8 mg/dL (8.4-10.5); GFR AFRICAN-AMERICAN > 60; GFR NON-AFRICAN AMERICAN > 60
[2018-01-08] MEDS: Budesonide 0.5 mg/2 ml Inhal Susp UD IH SCH ×2 (07:27→22:00)
--- NOTE | 2018-01-08 07:31 | PN ---
DATE: 01/08/2018 PULMONARY NOTE SUBJECTIVE: The patient appears comfortable this morning. He is not short of breath at rest. OBJECTIVE: VITAL SIGNS (last noted in the computer): Temperature is 98, pulse 94, respirations 18/20, blood pressure 92/55. Oxygen saturation on nasal cannula is 93%. HEENT: Normocephalic, atraumatic. No JVD. CARDIOVASCULAR: Systolic ejection murmur at the lower left sternal border. No S3 gallop. LUNGS: Very minimal rhonchi bilaterally. No wheezing. EXTREMITIES: Positive for mild edema. No cyanosis or clubbing. Calves are nontender to palpation. GI: Abdomen is soft, nontender and nondistended. Bowel sounds are positive. SKIN: No acute rash. NEUROLOGIC: Exam limited at the present time. IMPRESSION: 1. Advanced chronic obstructive pulmonary disease. 2. Mild bronchospasm - resolving. 3. Coronary artery disease. 4. Atrial fibrillation. 5. Lumbar compression fractures, status post kyphoplasty. PLAN: The patient appears comfortable this morning. He is not short of breath at rest. He does state to feeling much better overall. On physical exam, no significant bronchospasm is noted. In addition, there is no significant alveolar-arterial gradient. I will continue with the current nebulizer treatments and inhaled steroids for now. Repeat morning labs are pending. Clinical status of the patient is certainly improved - compared to the initial presentation. I will discuss the above with Dr. Bowman. Mane Pineda MD [facility]
--- NOTE | 2018-01-08 08:15 | PN ---
DATE: 01/06/2018 PULMONARY PROGRESS NOTE SUBJECTIVE: Patient was seen and examined in transitional care unit. He is stating that he is less short of breath. He is on oxygen 24x7. PHYSICAL EXAMINATION: VITAL SIGNS: His temperature is 98.5, pulse is 84, respirations 20, blood pressure is 95/60, oxygen saturation on nasal canula is 93%. HEENT: Head normocephalic and atraumatic. CARDIOVASCULAR: S1 and S2. No S3. Regular. PULMONARY: Diminished breath sounds bilaterally, with few expiratory wheezes. GASTROINTESTINAL: Soft, nontender. No organomegaly. EXTREMITIES: 1+ pedal edema. SKIN: No acute skin rash. NEUROLOGIC: No focal deficits. ASSESSMENT: 1. Advanced chronic obstructive pulmonary disease. 2. Resolving bronchospasm. 3. Coronary artery disease. 4. Atrial fibrillation. 5. Lumbar compression fractures, status post kyphoplasty. PLAN: Patient's pulmonary status is stable. He is not short of breath at rest. He is using supplemental oxygen, nebulizer treatments. Clinically, he is improved. We will continue with current intervention. Jp Lacy MD
[2018-01-08] MEDS: oxyCODONE 20 mg ER Tab (oxyCONTIN) PO SCH ×2 (09:36→21:00)
--- NOTE | 2018-01-08 20:33 | PN ---
DATE: 01/08/2018 SUBJECTIVE: The patient is a 57-year-old, seen and examined. Complained of feeling tired, fatigue. Complained of having diarrhea, had two bowel movement since morning. PHYSICAL EXAMINATION: VITAL SIGNS: He is afebrile, pulse 90, respirations 20, blood pressure 98/55. LUNGS: Bilateral few soft crackle at bases. HEART: S1, S2 audible. ABDOMEN: Soft, nontender. No rebound. No guarding. NEUROLOGICAL: Patient is awake and alert, able to communicate. EXTREMITIES: Bilateral legs, no edema. LABORATORY EXAM: Sodium 141, potassium 4.6, chloride 98, CO2 of 34, BUN 8, creatinine 0.8. Blood sugar of 83. Hemoglobin on 01/05/2018 was 8.1, hematocrit 26.8. ASSESSMENT: 1. Nonischemic cardiomyopathy. 2. Compression fracture of lumbar vertebra, status post kyphoplasty. 3. History of atrial fibrillation, status post ablation. 4. History of chronic obstructive pulmonary disease. 5. Opioid dependence. 6. Recent diarrhea. PLAN: We will hold his laxative, give him one dose of loperamide and continue all other medications. We will follow up patient in a.m. Ross Bowman MD
--- NOTE | 2018-01-09 01:03 | PN ---
DATE: 01/08/2018 SUBJECTIVE: The patient is 57 years old, seen and examined, complained of feeling tired, mild shortness of breath, had diarrhea again, although laxatives are on hold. Denies any abdominal pain. No nausea or vomiting. States he has no appetite. PHYSICAL EXAMINATION: GENERAL: He is afebrile, pulse 62, respirations 18, and blood pressure 93/60. LUNGS: Bilateral fair airflow, decreased breath sounds at bases. HEART: S1 and S2 audible. No murmur. ABDOMEN: Soft. It is nontender. No rebound. No guarding. NEUROLOGICAL: He is awake, alert, oriented, and communicative. LABORATORY EXAM: WBC is 5.2, hemoglobin 8, hematocrit 26.8, platelet of 270. Chemistry: Blood sugar is 134. ASSESSMENT: 1. Diarrhea, probably secondary to laxative. 2. Status post lumbar kyphoplasty. 3. Nonischemic cardiomyopathy. 4. Hypotension. 5. Chronic obstructive pulmonary disease. PLAN: So, the plan is we will give him one dose of . Sent stool for Clostridium difficile. Continue physical therapy. Medication reviewed. Continue current medications. We will follow up patient in a.m. Ross Bowman MD
[2018-01-09] MEDS: Levalbuterol 1.25 MG/3 ML Inhal Soln UD IH SCH ×4 (01:54→20:04)
[2018-01-09] MEDS: oxyCODONE 10 mg Immediate Release Tab PO PRN ×3 (02:07→17:37)
[2018-01-09] MEDS: Pantoprazole 40 mg EC Tab PO SCH (06:22)
[2018-01-09] MEDS: Budesonide 0.5 mg/2 ml Inhal Susp UD IH SCH ×2 (07:25→20:04)
[2018-01-09] MEDS: oxyCODONE 20 mg ER Tab (oxyCONTIN) PO SCH ×3 (07:43→21:22)
--- NOTE | 2018-01-09 08:11 | PN ---
DATE: 01/09/2018 PULMONARY NOTE SUBJECTIVE: The patient appears comfortable this morning. He is not short of breath at rest. PHYSICAL EXAMINATION: VITAL SIGNS: (Last noted in the computer): Temperature is 97.1, pulse 62, respirations 18, blood pressure 93/61. Oxygen saturation on nasal cannula is 91%-94%. HEENT: Normocephalic, atraumatic. No JVD. CARDIOVASCULAR: Systolic ejection murmur at the lower left sternal border. No S3 gallop. LUNGS: Clear bilaterally this morning. EXTREMITIES: Positive for mild edema. No cyanosis, no clubbing. Calves are nontender to palpation. GASTROINTESTINAL: Abdomen is soft, nontender, and nondistended. Bowel sounds are positive. SKIN: No acute rash. NEUROLOGIC: Limited at the present time. IMPRESSION: 1. Advanced chronic obstructive pulmonary disease. 2. Mild bronchospasm - resolving. 3. Coronary artery disease. 4. Atrial fibrillation. 5. Lumbar compression fractures, status post kyphoplasty. PLAN: The patient appears comfortable this morning. He is not short of breath at rest. He does state to feeling much better overall. On physical exam, his lungs are clear this morning. I will continue with the current nebulizer treatments and inhaled steroids for now. Input by Internal Medicine is also noted. The clinical status of the patient has significantly improved overall. However, again, his future status/prognosis does remain somewhat guarded - as he does continue to have advanced lung disease. I will discuss the above with Dr. Bowman. Mane Pineda MD [facility]
--- NOTE | 2018-01-09 12:56 | PN ---
DATE: 01/09/2018 SUBJECTIVE: The patient is 57 years old. Complained of feeling bloated. No appetite. He states that he ate very little and feels full. Did have bowel movement with scanty blood, not black. PHYSICAL EXAMINATION: VITAL SIGNS: He is afebrile, pulse 89, respirations 18, blood pressure 92/57. LUNGS: Bilateral fair airflow. No rhonchi or crackle. HEART: S1 and S2 audible. ABDOMEN: Soft, obese, nontender. No rebound. No guarding. NEUROLOGICAL: He is awake, alert, oriented, communicative, ambulatory. BACK: He said his back pain has converted into soreness only. His initial pain seems to be better. ASSESSMENT: 1. Status post kyphoplasty, lumbar vertebral fracture. 2. Nonischemic cardiomyopathy. 3. Chronic obstructive pulmonary disease. 4. Probably gastroparesis. 5. Neuropathy. PLAN: Start him on Reglan. Follow up his H&H in the a.m. He might need blood transfusion since his hemoglobin is running borderline. Ross Bowman MD
[2018-01-10] MEDS: Levalbuterol 1.25 MG/3 ML Inhal Soln UD IH SCH ×4 (01:41→20:49)
[2018-01-10] MEDS: oxyCODONE 10 mg Immediate Release Tab PO PRN ×2 (04:51→13:28)
[2018-01-10] MEDS: Levalbuterol 1.25 MG/3 ML Inhal Soln UD IH PRN ×2 (05:09→18:24)
[2018-01-10] MEDS: Pantoprazole 40 mg EC Tab PO SCH (06:02)
[2018-01-10 07:09] LABS: BASO # 0.03 K/mm3 (0.0-2.0); EOS # 0.1 (0.0-0.7); EOS % 3.7 % (1.5-5.0); GRAN # 2.02 (1.4-6.5); GRAN % 67.3 % (50.0-68.0); HEMOGLOBIN 8.1 g/dL (14.0-18.0); LYMPH # 0.5 (1.2-3.4); LYMPH % 16.3 % (22.0-35.0); MEAN CELL VOLUME 78.9 fl (80.0-105.0); MEAN CORPUSCULAR HEMOGLOBIN 22.8 pg (25.0-35.0); MEAN CORPUSCULAR HGB CONC 28.9 g/dl (31.0-37.0); MEAN PLATELET VOLUME 10.9 fl (7.0-11.0); MONO # 0.4 (0.1-0.6); MONO % 11.7 % (1.0-6.0); RBC 3.55 10^6/uL (3.5-6.1); RED CELL DISTRIBUTION WIDTH 16.7 % (11.5-14.5)
[2018-01-10] MEDS: Budesonide 0.5 mg/2 ml Inhal Susp UD IH SCH ×2 (07:20→20:49)
[2018-01-10 07:36] LABS: ALB/GLOB RATIO 1.4 (1.1-1.8); ALBUMIN 3.3 g/dL (3.0-4.8); ALT/SGPT 19 U/L (7-56); AST/SGOT 17 U/L (17-59); BLOOD UREA NITROGEN 7 mg/dL (7-21); CALCIUM 9.1 mg/dL (8.4-10.5); GFR AFRICAN-AMERICAN > 60; GFR NON-AFRICAN AMERICAN > 60
--- NOTE | 2018-01-10 09:41 | PN ---
DATE: 01/10/2018 PULMONARY NOTE SUBJECTIVE: The patient appears comfortable this morning. He is not short of breath at rest. PHYSICAL EXAMINATION VITAL SIGNS: Last temperature recorded is 98.1, pulse is 67, respirations 18, blood pressure 99/66. Oxygen saturation on nasal cannula is 94%. HEENT: Normocephalic, atraumatic. No JVD. CARDIOVASCULAR: Systolic ejection murmur at the lower left sternal border. No S3 gallop. LUNGS: Minimal rhonchi bilaterally. No wheezing. EXTREMITIES: Mild edema. No cyanosis, no clubbing. Calves are nontender to palpation. GI: Abdomen is soft, nontender and nondistended. Bowel sounds are positive. SKIN: No acute rash. NEUROLOGIC: Limited at the present time. IMPRESSION: 1. Advanced chronic obstructive pulmonary disease. 2. Mild bronchospasm - resolving. 3. Coronary artery disease. 4. Atrial fibrillation. 5. Lumbar compression fractures, status post kyphoplasty. PLAN: The patient appears comfortable this morning. He is not short of breath at rest. He does state to feeling much better overall. On physical exam, there is no significant bronchospasm noted. In addition, the alveolar-arterial gradient is also less. I will continue with the current pulmonary medications for now. The clinical status of the patient is significantly improved overall. Again, his future status/prognosis does remain guarded. I will discuss the above with Dr. Bowman. Mane Pineda MD [facility]
[2018-01-10] MEDS: oxyCODONE 20 mg ER Tab (oxyCONTIN) PO SCH ×2 (09:44→21:04)
--- NOTE | 2018-01-11 00:27 | PN ---
DATE: 01/10/2018 SUBJECTIVE: Patient is 57 years old, seen and examined, still complaining of feeling bloated and little better than before. Had couple of bowel movements. PHYSICAL EXAMINATION VITAL SIGNS: He is afebrile. Pulse 98, respirations 20, blood pressure 104/64. LUNGS: Bilateral diffusely decreased breath sounds. HEART: S1 and S2 audible. ABDOMEN: Soft, nontender. No rebound. No guarding. NEUROLOGICAL: Patient is awake and alert, able to communicate. EXTREMITIES: Bilateral legs, no edema. LABORATORY DATA: WBC 3, hemoglobin 8.1, hematocrit 28, platelets of 230. Chemistry: Sodium 141, potassium 4.1, chloride 103, CO2 28, BUN 7, creatinine 0.5, blood sugar of 96. ASSESSMENT: 1. Chronic obstructive pulmonary disease exacerbation. 2. Compression fracture, secondary to osteoporosis, and being on steroids, status post kyphoplasty. 3. Nonischemic cardiomyopathy. 4. Hypotension. 5. Chronic anemia. GI workup negative. PLAN: I will give one dose of Venofer. Will continue on current medications. Continue on Protonix. He is on Reglan. We will continue that and encourage physical therapy. Follow up patient. Ross Bowman MD
[2018-01-11] MEDS: Levalbuterol 1.25 MG/3 ML Inhal Soln UD IH SCH ×4 (01:35→19:23)
[2018-01-11] MEDS: oxyCODONE 10 mg Immediate Release Tab PO PRN ×3 (02:28→17:44)
[2018-01-11] MEDS: Pantoprazole 40 mg EC Tab PO SCH (05:36)
[2018-01-11] MEDS: Levalbuterol 1.25 MG/3 ML Inhal Soln UD IH PRN (06:36)
[2018-01-11] MEDS: Budesonide 0.5 mg/2 ml Inhal Susp UD IH SCH ×2 (07:26→19:23)
--- NOTE | 2018-01-11 07:49 | PN ---
DATE: 01/11/2018 PULMONARY NOTE SUBJECTIVE: The patient appears comfortable this morning. He is not short of breath at rest. OBJECTIVE: VITAL SIGNS: Temperature is 98, pulse 96, respirations 18, blood pressure 93/59.. Oxygen saturation on nasal cannula is 92 - 94%. HEENT: Normocephalic, atraumatic. No JVD. CARDIOVASCULAR: Systolic ejection murmur at the lower left sternal border. No S3 gallop. LUNGS: Clear bilaterally this morning. EXTREMITIES: Mild edema. No cyanosis, no clubbing. Calves are nontender to palpation. GI: Abdomen is soft, nontender and nondistended. Bowel sounds are positive. SKIN: No acute rash. NEUROLOGIC: Exam limited at the present time. IMPRESSION: 1. Advanced chronic obstructive pulmonary disease. 2. Mild bronchospasm - resolved. 3. Coronary artery disease. 4. Atrial fibrillation. 5. Lumbar compression fractures, status post kyphoplasty. PLAN: The patient appears comfortable this morning. He is not short of breath at rest. He does state to feeling much better overall. On physical exam, his lungs are clear this morning. In addition, the alveolar-arterial gradient is also less. I will continue with the current pulmonary medications for now. The clinical status of the patient is significantly improved overall. However, again, his future status/prognosis does remain guarded. I will discuss the above with the attending physician. Mane Pineda MD MTDD
[2018-01-11] MEDS: oxyCODONE 20 mg ER Tab (oxyCONTIN) PO SCH ×2 (09:53→21:47)
[2018-01-11 16:23] VITALS: PULSE 91; RESP 20; TEMP 98.7; O2SAT 96
--- NOTE | 2018-01-11 21:20 | PN ---
DATE: 01/11/2018 SUBJECTIVE: Patient is 57 years old, seen and examined, lying in bed, just came from therapy, feels tired, complaining of back pain, had kyphoplasty done. PHYSICAL EXAMINATION: VITAL SIGNS: He is afebrile. Pulse 91, respirations 20, blood pressure 93/59. LUNGS: Bilateral diffusely decreased breath sounds. HEART: S1 and S2 audible. ABDOMEN: Soft, nontender. No rebound. No guarding. NEUROLOGICAL: Patient is awake, alert, oriented, communicative. Moves all extremities. Complaining of back pain upon ambulation. ASSESSMENT: 1. Nonischemic cardiomyopathy. 2. Advanced chronic obstructive pulmonary disease. 3. Hypotension. 4. Chronic anemia. 5. Chronic constipation. 6. Deconditioning and difficulty walking. PLAN: Give him another bag of iron supplementation. Continue current medications. Patient remains stable. He is scheduled to be discharged in a.m. Ross Bowman MD
[2018-01-12] MEDS: Levalbuterol 1.25 MG/3 ML Inhal Soln UD IH SCH ×3 (01:15→13:14)
[2018-01-12] MEDS: oxyCODONE 10 mg Immediate Release Tab PO PRN ×2 (05:09→11:35)
[2018-01-12] MEDS: Pantoprazole 40 mg EC Tab PO SCH (05:47)
[2018-01-12] MEDS: Budesonide 0.5 mg/2 ml Inhal Susp UD IH SCH (07:31)
--- NOTE | 2018-01-12 07:50 | PN ---
DATE: 01/12/2018 PULMONARY NOTE SUBJECTIVE: The patient appears very comfortable this morning. He is not short of breath at rest. OBJECTIVE: VITAL SIGNS (last noted in the computer): Temperature is 98.7, pulse 91, respirations 18/20, blood pressure 93/59. Oxygen saturation on nasal cannula is 96%. HEENT: Normocephalic, atraumatic. No JVD. CARDIOVASCULAR: Systolic ejection murmur at the lower left sternal border. No S3 gallop. LUNGS: Clear bilaterally. EXTREMITIES: Mild edema. No cyanosis, no clubbing. Calves are nontender to palpation. GI: Abdomen is soft, nontender and nondistended. Bowel sounds are positive. SKIN: No acute rash. NEUROLOGIC: Exam limited at the present time. IMPRESSION: 1. Advanced chronic obstructive pulmonary disease. 2. Mild bronchospasm - resolved. 3. Coronary artery disease. 4. Atrial fibrillation. 5. Lumbar compression fractures, status post kyphoplasty. PLAN: The patient appears very comfortable this morning. He is not short of breath at rest. He does state to feeling much better overall. On physical exam, his lungs remain clear. In addition, the alveolar-arterial gradient is also much less. I will continue with the current pulmonary medications for now. The clinical status of the patient is significantly improved overall. However, again, his future status/prognosis does remain somewhat guarded - as he continues to have advanced lung disease. He is for discharge in the near future. I will discuss the above with the attending physician. Mane Pineda MD MTDD
[2018-01-12] MEDS: oxyCODONE 20 mg ER Tab (oxyCONTIN) PO SCH (09:30)
[2018-01-12 09:33] VITALS: BP 98/66
--- NOTE | 2018-01-12 22:21 | DS ---
HISTORY OF PRESENT ILLNESS: The patient is 57 years old, seen and examined. The patient was initially admitted with shortness of breath, palpitation and cough and congestion. He was also having intractable back pain. Had MRI of the lumbosacral spine. He was found to have thoracic vertebral fracture, but was chronic; however, lumbar fracture was acute, so he was seen by Dr. De Campoverde and underwent kyphoplasty. PHYSICAL EXAMINATION: GENERAL: He is awake, alert, oriented, communicative. Complained of back pain. VITAL SIGNS: He is afebrile, pulse 91, respirations 20, blood pressure 93/59. LUNGS: Bilateral diffusely decreased breath sounds. HEART: S1 and S2 audible. ABDOMEN: Soft. Nontender. No rebound. No guarding. NEUROLOGICAL: He is awake, alert, oriented, communicative, ambulatory, participating in therapy. ASSESSMENT: 1. Nonischemic cardiomyopathy. 2. Compression fracture, chronic use of steroid, status post kyphoplasty of multiple lumbar vertebrae. 3. Hypotension. 4. Chronic obstructive pulmonary disease. 5. Degenerative disk disease. 6. Chronic narcotic dependence. PLAN: The patient is being discharged home on MS Contin, oxycodone 10 mg b.i.d. p.r.n. and he will resume all his medications. Follow up with Dr. Love and will follow up the patient in the office as outpatient. Ross Bowman MD
== END 2018-01-12 15:51 | disposition home or self-care (01) | DRG 560 ==
LOC: TRCU 16:23
PROVIDERS: ADMIT Internal Medicine; ATTEND Internal Medicine
PROC: 3E0F7GC Introduction of Other Therapeutic Substance into Respiratory Tract, Via Natural or Artificial Opening (ICD-10-PCS; 2018-01-04)
PROC: F07Z9FZ Gait Training/Functional Ambulation Treatment using Assistive, Adaptive, Supportive or Protective Equipment (ICD-10-PCS; principal; 2018-01-05)
PROC: F08Z4FZ Home Management Treatment using Assistive, Adaptive, Supportive or Protective Equipment (ICD-10-PCS; 2018-01-05)
DX: M48.56XD Collapsed vertebra, not elsewhere classified, lumbar region, subsequent encounter for fracture with routine healing (principal); R26.2 Difficulty in walking, not elsewhere classified; Z98.890 Other specified postprocedural states; I42.9 Cardiomyopathy, unspecified; F11.20 Opioid dependence, uncomplicated; J44.1 Chronic obstructive pulmonary disease with (acute) exacerbation; I25.10 Atherosclerotic heart disease of native coronary artery without angina pectoris; D64.9 Anemia, unspecified; G62.9 Polyneuropathy, unspecified; I10 Essential (primary) hypertension; R19.7 Diarrhea, unspecified; T47.4X5A Adverse effect of other laxatives, initial encounter; M81.0 Age-related osteoporosis without current pathological fracture; K59.09 Other constipation; I95.9 Hypotension, unspecified; E78.5 Hyperlipidemia, unspecified

== ENCOUNTER 2018-03-15 05:45 | Inpatient (IN) | payer MEDICARE, MEDICAID ==
[2018-03-15 05:45] VITALS: PULSE 91; BMI 24.3
--- NOTE | 2018-03-15 05:54 | ED PDOC ---
Arrival/HPI - General Time Seen by Provider: 03/15/18 05:46 Historian: Patient - History of Present Illness Narrative History of Present Illness (Text): 03/15/18 05:50 Demetrio Ghotra is a 57 year old male, whose past medical history includes COPD, paroxysmal atrial fibrillation, CHF, CAD, NC, hypertension, and chronic back pain, who presents to the Emergency department complaining of shortness of breath, progressively worsening since yesterday. Patient reports associated productive cough with sputum and a fever of 101F yesterday evening. Patient denies any nausea, vomiting, diarrhea, urinary symptoms, neck pain, headache, dizziness, or any other complaints. PMD: Dr. Bowman Stem Crusher: Dr. Love Time/Duration: 24 hours Symptom Onset: Gradual Symptom Course: Unchanged Activities at Onset: Light Context: Home Past Medical History - Provider Review Nursing Documentation Reviewed: Yes - Past History Past History: No Previous - Infectious Disease Hx of Infectious Diseases: None - Tetanus Immunization Tetanus Immunization: Unknown - Past Medical History Past Medical History: Non-Contributing - Cardiac Hx Cardiac Disorders: Yes Hx Congestive Heart Failure: Yes Hx Hypertension: Yes - Pulmonary Hx Chronic Obstructive Pulmonary Disease (COPD): Yes (O2 at home) - Neurological Hx Neurological Disorder: No - HEENT Hx HEENT Disorder: Yes (CONTACTS,WEARS RX GLASSES AT TIMES,H/O OF NOSEBLEEDS) Other/Comment: nosebleeds - Renal Hx Renal Disorder: No - Endocrine/Metabolic Hx Diabetes Mellitus Type 2: Yes - Hematological/Oncological Hx Cancer: No - Integumentary Other/Comment: tatoo r arm - Musculoskeletal/Rheumatological Hx Falls: Yes - Gastrointestinal Hx Gastrointestinal Disorders: Yes (appendectomy,colon sx,gerd) - Genitourinary/Gynecological Hx Genitourinary Disorders: No - Psychiatric Hx Anxiety: Yes Hx Substance Use: No - Past Surgical History Past Surgical History: Non-Contributing - Surgical History Hx Mastectomy: No - Anesthesia Hx Anesthesia: Yes Hx Anesthesia Reactions: No Hx Malignant Hyperthermia: No - Suicidal Assessment Feels Threatened In Home Enviroment: No Family/Social History - Physician Review Nursing Documentation Reviewed: Yes Family/Social History: Unknown Family HX Smoking Status: Former Smoker Hx Alcohol Use: No Hx Substance Use: No 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 Hx Substance Use Treatment: Yes Allergies/Home Meds Allergies/Adverse Reactions: Allergies No Known Allergies Allergy (Verified 03/15/18 05:56) Home Medications: Home Meds Medication Instructions Recorded Confirmed Alprazolam [Xanax] 0.5 mg PO BID 08/13/17 03/15/18 Furosemide [Lasix] 20 mg PO DAILY 08/13/17 03/15/18 Linaclotide [Linzess] 72 mcg PO DAILY 08/13/17 03/15/18 Oxycodone HCl [Oxycontin] 20 mg PO BID 08/13/17 03/15/18 Potassium Chloride [Klor-Con 10 meq PO DAILY 08/13/17 03/15/18 Sprinkle] Roflumilast [Daliresp] 500 mcg PO DAILY 08/13/17 03/15/18 predniSONE [predniSONE Tab] 5 mg PO BID 08/13/17 03/15/18 Pantoprazole [Protonix EC Tab] 40 mg PO DAILY 09/02/17 03/15/18 Tiotropium [Spiriva] 18 mcg PO DAILY 12/28/17 03/15/18 Levalbuterol [Xopenex] 1.25 mg IH [id number] PRN 03/15/18 03/15/18 Montelukast [Singulair] 10 mg PO HS 03/15/18 03/15/18 oxyCODONE [oxyCODONE Immediate 10 mg PO BID PRN 03/15/18 03/15/18 Release Tab] Review of Systems - Physician Review All systems were reviewed & negative as marked: Yes - Review of Systems Constitutional: Fevers Eyes: Normal ENT: Normal Respiratory: SOB, Cough, Sputum Cardiovascular: Normal. absent: Chest Pain Gastrointestinal: Normal. absent: Abdominal Pain, Diarrhea, Nausea, Vomiting Genitourinary Male: Normal. absent: Dysuria, Frequency, Hematuria, Urinary Output Changes Musculoskeletal: Normal. absent: Back Pain, Neck Pain Skin: Normal. absent: Rash Neurological: Normal. absent: Headache, Dizziness Endocrine: Normal Hemo/Lymphatic: Normal Psychiatric: Normal Physical Exam Vital Signs Reviewed: Yes Vital Signs Temp Pulse Resp BP Pulse Ox 03/15/18 11:55 98.8 F 82 20 122/78 95 03/15/18 10:00 78 18 110/71 95 03/15/18 09:00 20 95 03/15/18 08:26 98.7 F 84 20 101/63 94 L 03/15/18 07:03 80 20 110/72 96 03/15/18 06:01 19 95 03/15/18 05:52 98.3 F 86 19 127/71 92 L Temperature: Afebrile Blood Pressure: Normal Pulse: Regular Respiratory Rate: Normal Appearance: Positive for: Well-Appearing, Non-Toxic, Comfortable Pain Distress: None Mental Status: Positive for: Alert and Oriented X 3 - Systems Exam Head: Present: Atraumatic, Normocephalic Pupils: Present: PERRL Extroacular Muscles: Present: EOMI Conjunctiva: Present: Normal Mouth: Present: Moist Mucous Membranes Neck: Present: Normal Range of Motion Respiratory/Chest: No: Good Air Exchange (Poor air entry bilaterally), Respiratory Distress, Accessory Muscle Use Cardiovascular: Present: Regular Rate and Rhythm, Normal S1, S2. No: Murmurs Abdomen: No: Tenderness, Distention, Peritoneal Signs Back: Present: Normal Inspection Upper Extremity: Present: Normal Inspection. No: Cyanosis, Edema Lower Extremity: Present: Normal Inspection. No: Edema Neurological: Present: GCS=15, CN II-XII Intact, Speech Normal Skin: Present: Warm, Dry, Normal Color. No: Rashes Psychiatric: Present: Alert, Oriented x 3, Normal Insight, Normal Concentration Medical Decision Making ED Course and Treatment: 03/15/18 05:50 Impression: 58 year old male complaining of progressively worsening shortness of breath, productive cough with sputum, and fever since yesterday. Plan: -- EKG -- Chest X-Ray -- Labs, cardiac enzymes -- Reassess and disposition Progress Notes: 03/15/18 05:57 Reviewed EKG, NSR at [address] bpm[address] Non-specific ST/T wave changes. - Lab Interpretations Lab Results: 03/15/18 06:03 03/15/18 06:03 Lab Results 03/15/18 06:03: Sodium 137, Potassium 3.7, Chloride 97 L, Carbon Dioxide 27, Anion Gap 17, BUN 15, Creatinine 0.5 L, Est GFR ( Amer) > 60, Est GFR ( Non-Af Amer) > 60, Random Glucose 102, Calcium 9.7, Magnesium 1.9, Total Bilirubin 1.0, AST 14 L, ALT 31, Alkaline Phosphatase 99, Lactate Dehydrogenase 324 L, Total Creatine Kinase < 20 L, Troponin I < 0.01, NT-Pro-B Natriuret Pep 252, Total Protein 7.1, Albumin 4.3, Globulin 2.9, Albumin/Globulin Ratio 1.5 03/15/18 06:03: PT 11.6, INR 1.01, APTT 25.5 03/15/18 06:03: WBC 17.0 H D, RBC 5.04, Hgb 13.0 L D, Hct 40.0 L, MCV 79.4 L, MCH 25.8, MCHC 32.5, RDW 17.4 H, Plt Count 196, MPV 10.3, Gran % 89.0 H, Lymph % (Auto) 5.2 L, [place] % (Auto) 5.3, Eos % (Auto) 0.4 L, Baso % (Auto) 0.1, Gran # 15.15 H, Lymph # (Auto) 0.9 L, [place] # (Auto) 0.9 H, Eos # (Auto) 0.1, Baso # ( Auto) 0.02 - RAD Interpretation Radiology Orders: 03/15/18 06:01 CHEST PORTABLE [RAD] Stat - EKG Interpretation Interpreted by ED Physician: Yes Type: 12 lead EKG - Medication Orders Current Medication Orders: Acetaminophen (Tylenol 325mg Tab) 650 mg PO Q4H PRN PRN Reason: Fever >100.5 F Albuterol/Ipratropium (Duoneb 3 Mg/0.5 Mg (3 Ml) Ud) 3 ml IH Q3H PRN PRN Reason: Shortness of Breath Aspirin (Ecotrin) 81 mg PO DAILY ERNESTINA Ferrous Sulfate (Feosol) 324 mg PO BID ERNESTINA Furosemide (Lasix) 40 mg PO DAILY ERNESTINA Last Admin: 03/15/18 14:12 Dose: 40 mg MAR Blood Pressure Document 03/15/18 14:12 EKATERINA (Rec: 03/15/18 14:13 [facility] [id number]) Blood Pressure Blood Pressure (100/60-150/90) 112/63 Potassium Chloride (Klor-Con 10) 10 meq PO DAILY ERNESTINA Last Admin: 03/15/18 14:12 Dose: 10 meq Roflumilast (Daliresp) 500 mcg PO DAILY ERNESTINA Last Admin: 03/15/18 14:11 Dose: 500 mcg Sotalol HCl (Betapace) 80 mg PO BID ERNESTINA Discontinued Medications Albuterol/Ipratropium (Duoneb 3 Mg/0.5 Mg (3 Ml) Ud) 3 ml IH Q15M ERNESTINA Stop: 03/15/18 06:46 Last Admin: 03/15/18 06:58 Dose: 3 ml Azithromycin (Zithromax) 500 mg PO STAT STA PRN Reason: Protocol Stop: 03/15/18 07:38 Last Admin: 03/15/18 07:55 Dose: 500 mg Ceftriaxone Sodium (Rocephin 1 Gram Ivpb) 1 gm in 100 mls @ 200 mls/hr IVPB STAT STA PRN Reason: Protocol Stop: 03/15/18 08:05 Last Admin: 03/15/18 07:54 Dose: 200 mls/hr eMAR Start Stop Document 03/15/18 07:54 KARLIA (Rec: 03/15/18 07:55 SZMelissa [id number]) Intravenous Solution Start Date 03/15/18 Start Time 07:54 End Date 03/15/18 End time 08:30 Total Infusion Time 36 Methylprednisolone (Solu-Medrol) 125 mg IVP STAT STA Stop: 03/15/18 06:02 Last Admin: 03/15/18 06:10 Dose: 125 mg IVP Administration Document 03/15/18 06:10 RG (Rec: 03/15/18 06:16 RG [id number]) Charges for Administration # of IVP Administrations 1 - Transfer of Care Patient signed out to Dr:: leandro labs and dispo - Scribe Statement The provider has reviewed the documentation as recorded by the Rigoberto Kulkarni Provider Scribe Attestation: All medical record entries made by the Scribtiffany were at my direction and personally dictated by me. I have reviewed the chart and agree that the record accurately reflects my personal performance of the history, physical exam, medical decision making, and the department course for this patient. I have also personally directed, reviewed, and agree with the discharge instructions and disposition. Disposition/Present on Arrival - Present on Arrival Any Indicators Present on Arrival: No History of DVT/PE: No History of Uncontrolled Diabetes: No Urinary Catheter: No History Surgical Site Infection Following: None - Disposition Have Diagnosis and Disposition been Completed?: Yes Diagnosis: COPD exacerbation, Pneumonia Disposition: HOSPITALIZED Disposition Time: 07:00 Patient Problems: Current Active Problems Problem Status Onset COPD exacerbation Acute Pneumonia Acute Condition: FAIR
[2018-03-15] MEDS: Albuterol-Ipratrop 3 mg / 0.5 (3 ml) UD IH SCH ×4 (06:07→19:36)
[2018-03-15 07:05] LABS: BASO # 0.02 K/mm3 (0.0-2.0); BASO % 0.1 % (0.0-3.0); EOS # 0.1 (0.0-0.7); EOS % 0.4 % (1.5-5.0); GRAN # 15.15 (1.4-6.5); LYMPH # 0.9 (1.2-3.4); LYMPH % 5.2 % (22.0-35.0); MEAN CELL VOLUME 79.4 fl (80.0-105.0); MEAN CORPUSCULAR HEMOGLOBIN 25.8 pg (25.0-35.0); MEAN CORPUSCULAR HGB CONC 32.5 g/dl (31.0-37.0); MEAN PLATELET VOLUME 10.3 fl (7.0-11.0); MONO # 0.9 (0.1-0.6); MONO % 5.3 % (1.0-6.0); RBC 5.04 10^6/uL (3.5-6.1); RED CELL DISTRIBUTION WIDTH 17.4 % (11.5-14.5)
[2018-03-15 07:16] LABS: ALB/GLOB RATIO 1.5 (1.1-1.8); ALBUMIN 4.3 g/dL (3.0-4.8); ALT/SGPT 31 U/L (7-56); AST/SGOT 14 U/L (17-59); BLOOD UREA NITROGEN 15 mg/dL (7-21); CALCIUM 9.7 mg/dL (8.4-10.5); GFR AFRICAN-AMERICAN > 60; GFR NON-AFRICAN AMERICAN > 60
[2018-03-15 07:26] LABS: INR 1.01; PARTIAL THROMBOPLASTIN TIME 25.5 Seconds (25.1-36.5); PROTHROMBIN TIME 11.6 SECONDS (9.4-12.5)
[2018-03-15 07:27] LABS: B-TYPE NATRIURETIC PEPTIDE 252 pg/mL (0-450); TROPONIN I < 0.01 ng/mL
[2018-03-15] MEDS ORDERED: cefTRIAXone 1 gm 1 GM/100 ML BAG IVPB STA (07:36)
--- NOTE | 2018-03-15 08:02 | ED PDOC ---
Physical Exam Vital Signs Reviewed: Yes Vital Signs Temp Pulse Resp BP Pulse Ox 03/15/18 08:26 98.7 F 84 20 101/63 94 L 03/15/18 07:03 80 20 110/72 96 03/15/18 06:01 19 95 03/15/18 05:52 98.3 F 86 19 127/71 92 L Temperature: Afebrile Blood Pressure: Normal Pulse: Regular Respiratory Rate: Normal - Systems Exam Respiratory/Chest: Present: Rhonchi (lungs have right-sided rhonchi, cleared when he coughs). No: Rales Lower Extremity: No: Edema Medical Decision Making ED Course and Treatment: 03/15/18 07:58 ED Course and Treatment: 03/15/18 05:50 Impression: 58 year old male complaining of progressively worsening shortness of breath, productive cough with sputum, and fever since yesterday. Plan: -- EKG -- Chest X-Ray -- Labs, cardiac enzymes -- Reassess and disposition Progress Notes: 03/15/18 05:57 Reviewed EKG, NSR at 85 bpm[address] Non-specific ST/T wave changes. 03/15/18 07:00 Case endorsed to me by Dr. Bhagat for pending Chest X-Ray results/reassessment/ 03/15/18 07:40 Patient found with white count of 17. Chest X-ray read and interpreted by me and is clear of infiltrates in light of his cough and fever. Will treat with IV and antibiotics. Patient currently improving but still having symptoms. Lungs have right sided bronchi that is cleared when he coughs. No rales, no lower extremity edema. Patient is on chronic steroids, which may also increase his white count. Will admit patient for treatment of Pneumonia and COPD. 03/15/18 08:[address] Bowman about case, who is aware of and agrees with plan. Dr. Bowman agrees to admit patient onto her service. Dr. Bowman is asking for consult from Dr. Pineda. Patient is being admitted to remote telemetry. - Lab Interpretations Lab Results: 03/15/18 06:03 03/15/18 06:03 Lab Results 03/15/18 06:03: Sodium 137, Potassium 3.7, Chloride 97 L, Carbon Dioxide 27, Anion Gap 17, BUN 15, Creatinine 0.5 L, Est GFR ( Amer) > 60, Est GFR ( Non-Af Amer) > 60, Random Glucose 102, Calcium 9.7, Magnesium 1.9, Total Bilirubin 1.0, AST 14 L, ALT 31, Alkaline Phosphatase 99, Lactate Dehydrogenase 324 L, Total Creatine Kinase < 20 L, Troponin I < 0.01, NT-Pro-B Natriuret Pep 252, Total Protein 7.1, Albumin 4.3, Globulin 2.9, Albumin/Globulin Ratio 1.5 03/15/18 06:03: PT 11.6, INR 1.01, APTT 25.5 03/15/18 06:03: WBC 17.0 H D, RBC 5.04, Hgb 13.0 L D, Hct 40.0 L, MCV 79.4 L, MCH 25.8, MCHC 32.5, RDW 17.4 H, Plt Count 196, MPV 10.3, Gran % 89.0 H, Lymph % (Auto) 5.2 L, [place] % (Auto) 5.3, Eos % (Auto) 0.4 L, Baso % (Auto) 0.1, Gran # 15.15 H, Lymph # (Auto) 0.9 L, [place] # (Auto) 0.9 H, Eos # (Auto) 0.1, Baso # ( Auto) 0.02 - RAD Interpretation Radiology Orders: 03/15/18 06:01 CHEST PORTABLE [RAD] Stat Pig Breeder: ED Physician - Medication Orders Current Medication Orders: Discontinued Medications Albuterol/Ipratropium (Duoneb 3 Mg/0.5 Mg (3 Ml) Ud) 3 ml IH Q15M ERNESTINA Stop: 03/15/18 06:46 Last Admin: 03/15/18 06:58 Dose: 3 ml Azithromycin (Zithromax) 500 mg PO STAT STA PRN Reason: Protocol Stop: 03/15/18 07:38 Last Admin: 03/15/18 07:55 Dose: 500 mg Ceftriaxone Sodium (Rocephin 1 Gram Ivpb) 1 gm in 100 mls @ 200 mls/hr IVPB STAT STA PRN Reason: Protocol Stop: 03/15/18 08:05 Last Admin: 03/15/18 07:54 Dose: 200 mls/hr eMAR Start Stop Document 03/15/18 07:54 FELY (Rec: 03/15/18 07:55 FELY [id number]) Intravenous Solution Start Date 03/15/18 Start Time 07:54 End Date 03/15/18 End time 08:30 Total Infusion Time 36 Methylprednisolone (Solu-Medrol) 125 mg IVP STAT STA Stop: 03/15/18 06:02 Last Admin: 03/15/18 06:10 Dose: 125 mg IVP Administration Document 03/15/18 06:10 RG (Rec: 03/15/18 06:16 RG [id number]) Charges for Administration # of IVP Administrations 1 - Scribe Statement The provider has reviewed the documentation as recorded by the Scribe Kaci Saunders All medical record entries made by the Scribtiffany were at my direction and personally dictated by me. I have reviewed the chart and agree that the record accurately reflects my personal performance of the history, physical exam, medical decision making, and the department course for this patient. I have also personally directed, reviewed, and agree with the discharge instructions and disposition. Disposition/Present on Arrival - Present on Arrival Any Indicators Present on Arrival: No History of DVT/PE: No History of Uncontrolled Diabetes: No Urinary Catheter: No History of Decub. Ulcer: No History Surgical Site Infection Following: None - Disposition Have Diagnosis and Disposition been Completed?: Yes Diagnosis: COPD exacerbation, Pneumonia Disposition: HOSPITALIZED Disposition Time: 08:19 Patient Plan: Admission Condition: FAIR
--- NOTE | 2018-03-15 09:17 | RAD ---
Date of service: 03/15/2018 HISTORY: sob COMPARISON: 12/28/2017 FINDINGS: LUNGS: Bibasilar subsegmental atelectasis. No acute infiltrate. PLEURA: No significant pleural effusion identified, no pneumothorax apparent. CARDIOVASCULAR: Normal. OSSEOUS STRUCTURES: No significant abnormalities. VISUALIZED UPPER ABDOMEN: Normal. OTHER FINDINGS: None. IMPRESSION: Bibasilar subsegmental atelectasis.
[2018-03-15 09:32] LABS: VENOUS BLOOD GAS BASE EXCESS 2.8 mmol/L (0.0-2.0); VENOUS BLOOD GAS PO2 79 mm/Hg (30-55); VENOUS BLOOD PH 7.39 (7.32-7.43)
--- NOTE | 2018-03-15 10:08 | CARD ---
APPROVED REPORT Date of service: 03/15/2018 EKG Measurement Heart [id number] <Conclusion> Normal sinus rhythm Incomplete right bundle branch block Possible Inferior infarct, age undetermined Abnormal ECG
[2018-03-15] MEDS ORDERED: Albuterol-Ipratrop 3 mg / 0.5 (3 ml) UD IH PRN (11:58)
[2018-03-15 12:26] LABS: URINE BILIRUBIN NEGATIVE (NEGATIVE); URINE BLOOD NEGATIVE (NEGATIVE); URINE GLUCOSE (UA) NEGATIVE (NEGATIVE); URINE LEUKOCYTE ESTERASE NEGATIVE Leu/uL (NEGATIVE); URINE PROTEIN NEGATIVE mg/dL (<30 mg/dL)
[2018-03-15 12:28] LABS: URINE APPEARANCE CLEAR (CLEAR); URINE COLOR YELLOW (YELLOW)
[2018-03-15] MEDS: Potassium Chloride 10 mEq ER Tab PO SCH (14:12)
[2018-03-15] MEDS: oxyCODONE 20 mg ER Tab (oxyCONTIN) PO SCH (17:28)
[2018-03-15] MEDS ORDERED: SOTALOL 120 MG PO SCH (18:00)
[2018-03-15] MEDS: Cefepime 0.5 GM in Sodium Chloride 0.9% 100 ML IVPB SCH (18:30)
[2018-03-15] MEDS: oxyCODONE 10 mg Immediate Release Tab PO PRN (22:50)
[2018-03-15] MEDS: MethylPREDNISolone 40 mg Vial IV SCH (22:50)
[2018-03-16] MEDS: Cefepime 0.5 GM in Sodium Chloride 0.9% 100 ML IVPB SCH ×3 (04:44→19:00)
[2018-03-16] MEDS: oxyCODONE 20 mg ER Tab (oxyCONTIN) PO SCH ×2 (06:18→18:27)
[2018-03-16] MEDS: MethylPREDNISolone 40 mg Vial IV SCH (06:19)
[2018-03-16 06:27] LABS: EOS % 0.1 % (1.5-5.0); GRAN # 8.82 (1.4-6.5); GRAN % 93.1 % (50.0-68.0); HEMOGLOBIN 12.6 g/dL (14.0-18.0); LYMPH # 0.4 (1.2-3.4); LYMPH % 4.3 % (22.0-35.0); MEAN CELL VOLUME 78.6 fl (80.0-105.0); MEAN CORPUSCULAR HEMOGLOBIN 25.5 pg (25.0-35.0); MEAN CORPUSCULAR HGB CONC 32.4 g/dl (31.0-37.0); MEAN PLATELET VOLUME 10.4 fl (7.0-11.0); MONO # 0.2 (0.1-0.6); MONO % 2.5 % (1.0-6.0); PLATELET COUNT 188 10^3/uL (120.0-450.0); RBC 4.95 10^6/uL (3.5-6.1); RED CELL DISTRIBUTION WIDTH 16.9 % (11.5-14.5); WHITE BLOOD COUNT 9.5 10^3/ul (4.5-11.0)
[2018-03-16 06:54] LABS: ALB/GLOB RATIO 1.4 (1.1-1.8); ALBUMIN 4.1 g/dL (3.0-4.8); ALT/SGPT 21 U/L (7-56); AST/SGOT 16 U/L (17-59); BLOOD UREA NITROGEN 15 mg/dL (7-21); CALCIUM 9.9 mg/dL (8.4-10.5); GFR AFRICAN-AMERICAN > 60; GFR NON-AFRICAN AMERICAN > 60
--- NOTE | 2018-03-16 07:39 | CON ---
Copied To: Mane Pineda MD Attending MD: Mane Pineda MD DATE: 03/16/2018 PULMONARY CONSULTATION REFERRING PHYSICIAN: Dr. Bowman REASON FOR CONSULTATION: Chronic obstructive pulmonary disease. HISTORY OF PRESENT ILLNESS: The patient is a chronically ill 58-year-old male, with past medical history significant for advanced chronic obstructive pulmonary disease, on home oxygen, paroxysmal atrial fibrillation, coronary artery disease, myocardial infarction in the past, hypertension, who presents to [facility], [place] with a 2-day history of worsening shortness of breath at rest, dyspnea on exertion, cough, and sputum production. There is no history of chest pain, coughing up of blood, or chest pain - made worse with deep respirations. The patient does state to low grade fevers at home. No history of chills or infectious exposure. No history of night sweats, weight loss or appetite change prior to the above events. No history of leg or calf pains. No history of syncope or diaphoresis. No history of recent travel or trauma. REVIEW OF SYSTEMS: No history of nausea, vomiting or diarrhea. No acute urinary symptoms. No new neurologic complaints. Rest of the review of systems is negative. ALLERGIES: NO KNOWN ALLERGIES. SOCIAL HISTORY: Positive for extensive tobacco usage. Also positive for previous alcohol usage. Also positive for previous polysubstance abuse. FAMILY HISTORY: No inheritable diseases. HOME MEDICATIONS: Include Lasix, Spiriva, prednisone, oxycodone, Betapace, Daliresp, oxycodone, Singulair, Xopenex, Pulmicort, Ecotrin, Xanax. PHYSICAL EXAMINATION: GENERAL: The patient appears comfortable this morning. He is not short of breath at rest. He is not using accessory muscles for breathing. VITAL SIGNS: Temperature is 97.7, pulse is 66, respirations 18, blood pressure 110/77. Oxygen saturation on nasal cannula is 95%. HEENT: Normocephalic, atraumatic. No JVD. CARDIOVASCULAR: Systolic ejection murmur at the lower left sternal border. No S3 gallop. LUNGS: Decreased breath sounds at the bases. Mild bilateral rhonchi and wheezing are appreciated. EXTREMITIES: Mild edema. No cyanosis, no clubbing. Calves are nontender to palpation. GI: Abdomen is soft, nontender, nondistended. Bowel sounds are positive. SKIN: No acute rash. NEUROLOGIC: Exam limited at the present time. PERTINENT LABORATORY DATA: Chest x-ray was done and reviewed. I have also compared the most present chest x-ray with previous x-rays. There are very minimal linear chronic changes at the right base. There are also minimal changes at the left base. However, I do question whether there is an accompanying infiltrate (small) at the left base. CBC: White count 17.0K, hemoglobin 13, hematocrit 40, platelets of 196,000. Complete metabolic profile: Glucose 144, AST 16. Rest of the metabolic profile is within normal limits. IMPRESSION: 1. Acute bronchitis. 2. Advanced chronic obstructive pulmonary disease, on home oxygen. 3. Rule out pneumonia versus subsegmental atelectasis - left base. 4. Mild anemia. 5. Coronary artery disease. PLAN: I did discuss the case with the night nurse at length. I have also reviewed the chart at length, and discussed the case with the patient at length. The patient presents to [facility], [place] with a 2-day history of worsening pulmonary symptoms. I did review the chest x-ray - at length - above. Procalcitonin has been ordered for this morning - to help us distinguish whether we are dealing with a true pneumonia or not. I would continue with the current antibiotic therapy for now. The temperatures have now fully resolved. On physical exam, there is mild bronchospasm noted. I will continue the current nebulizer treatments and decrease the intravenous steroids this morning. I will also add inhaled Pulmicort - which he is on at home. Again, I did discuss the case with the night nurse at length. The night nurse stated that the patient had a very good night. The patient himself states to feeling much better this morning, and is clinically improved. Additional pulmonary intervention will be based on the above results, as well as the clinical status of the patient. I will discuss the above with Dr. Bowman. Thank you very much for this pulmonary consultation. Mane Pineda MD LEANDRA
[2018-03-16] MEDS: Budesonide 0.5 mg/2 ml Inhal Susp UD IH SCH ×2 (07:51→20:00)
[2018-03-16] MEDS: Albuterol-Ipratrop 3 mg / 0.5 (3 ml) UD IH SCH ×3 (07:51→20:00)
[2018-03-16 08:13] LABS: LYMPHOCYTE 6 % (22.0-35.0); MONOCYTE 1 % (1.0-6.0); NEUTROPHIL 93 % (50.0-70.0); PLATELET ESTIMATE NORMAL (NORMAL)
--- NOTE | 2018-03-16 08:29 | HP ---
Copied To: Ross Bowman MD Attending MD: Ross Bowman MD HISTORY OF PRESENT ILLNESS: The patient is 58 years old, states he has not been feeling well for almost a week. He is steroid dependent and he states usually his phlegm is clear, but lately it has turned yellow and has not been feeling well. He was having chills and increasing shortness of breath. No chest pain palpitation. PAST MEDICAL HISTORY: Significant for: 1. COPD. 2. Nonischemic cardiomyopathy. 3. Hypotension. 4. Chronic back pain, on narcotics. 5. History of AFib, status post ablation. 6. Chronic constipation. ALLERGIES: NOT ALLERGIC TO ANY MEDICATION. MEDICATIONS AT HOME: He is on Lasix 20 mg daily, Spiriva 18 mcg daily, prednisone 5 mg three times a day, oxycodone 10 mg twice a day, sotalol 80 mg twice a day, Daliresp, potassium 10 mEq daily, Protonix 40 daily, OxyContin 20 mg twice a day, Singulair 10 mg daily, aspirin 81 daily and Xanax 0.5 twice a day. SOCIAL HISTORY: He used to be a heavy smoker and used to drink heavy. He used to use illicit drugs also including marijuana and cocaine, but quit a couple of years ago. REVIEW OF SYSTEMS: Significant for cough, congestion, shortness of breath and chills. PHYSICAL EXAMINATION GENERAL: He is awake, alert, oriented, communicative. VITAL SIGNS: He is afebrile, pulse 80, respirations 19, blood pressure 110/77. LUNGS: Bilateral diffusely decreased breath sound. Soft crackle at bases. HEART: S1 and S2 audible. ABDOMEN: Soft, nontender. No rebound. No guarding. NEUROLOGIC: The patient is awake, alert, oriented and communicative. EXTREMITIES: Bilateral leg, no edema. LABORATORY EXAM: WBC 17, hemoglobin 13, hematocrit 40, platelet 196. Chemistry: Sodium 137, potassium 3.7, chloride 97, CO2 of 27, BUN 15, creatinine 0.5, blood sugar of 102. LFTs are within normal limit. LDH is 324. Urinalysis is unremarkable. X-ray of chest shows bibasilar subsegmental atelectasis. ASSESSMENT: 1. Chronic obstructive pulmonary disease exacerbation. 2. History of chronic atrial fibrillation, status post ablation, now on sinus rhythm. 3. Asthmatic bronchitis. 4. Hypertension. 5. Chronic back pain. PLAN: We will continue the patient's usual medication. Start him on nebulizer treatment. Start him empirically on antibiotics, order for procalcitonin and order for CT scan of the chest and we will reevaluate the patient in a.m. Ross Bowman MD
[2018-03-16] MEDS: Potassium Chloride 10 mEq ER Tab PO SCH (09:39)
[2018-03-16] MEDS: MethylPREDNISolone 40 mg Vial IVP SCH ×2 (09:40→21:25)
--- NOTE | 2018-03-16 13:41 | CT ---
Date of service: 03/16/2018 PROCEDURE: CT Chest without contrast HISTORY: sob/cough COMPARISON: 09/08/2017 CT TECHNIQUE: Contiguous axial images were obtained through the chest without intravenous contrast enhancement. Sagittal and coronal reconstructions were performed. Radiation dose (DLP): 473 mGy-cm. This CT exam was performed using one or more of the following dose reduction techniques: Automated exposure control, adjustment of the mA and/or kV according to patient size, and/or use of iterative reconstruction technique. FINDINGS: LUNGS: Dense areas of consolidation are seen in the posterior lower lobes bilaterally. There is also some linear scarring in the superior segments of the lower lobes. The lungs have a hyperaerated appearance suggestive of COPD. MEDIASTINUM: Unremarkable thoracic aorta. No aneurysm. Normal sized heart. Main pulmonary artery unremarkable. No vascular congestion. No lymphadenopathy. PLEURA: No pleural fluid. No pneumothorax. BONES: Multiple compression fractures. Previous vertebroplasties UPPER ABDOMEN: Grossly unremarkable. OTHER FINDINGS: None. IMPRESSION: Dense areas of consolidation are seen in the posterior lower lobes bilaterally. There is also some linear scarring in the superior segments of the lower lobes. The lungs have a hyperaerated appearance suggestive of COPD.
[2018-03-16] MEDS: POLYETHYLENE GLYCOL 3350 17 GM/Dose PACKET PO SCH (14:16)
--- NOTE | 2018-03-16 14:24 | PN ---
Copied To: Ross Bowman MD Attending MD: Ross Bowman MD DATE: 03/16/2018 SUBJECTIVE: The patient is a 58-year-old, seen and examined, doing better than yesterday, had some blood-tinged expectoration. No chest pain. Does have shortness of breath when walking. PHYSICAL EXAMINATION: VITAL SIGNS: He is afebrile, pulse 70, respiration 18, blood pressure 113/74. LUNGS: Bilateral good airflow. No rhonchi or crackle. HEART: S1 and S2 audible. ABDOMEN: Soft, nontender. No rebound, no guarding. NEUROLOGIC: The patient is awake, alert, oriented, communicative. LABORATORY DATA: WBC is 9.5, hemoglobin 12.6, hematocrit 38.9, platelets of 188. PT 11.6, INR 1.01. Chemistry: Sodium 139, potassium 4.6, chloride 99, CO2 28, BUN 15, creatinine 0.5, blood sugar of 144. Blood cultures are negative. CT scan is pending. ASSESSMENT AND PLAN: 1. History of chronic obstructive pulmonary disease exacerbation. 2. Asthmatic bronchitis. 3. History of congestive heart failure. 4. History of sleep apnea. 5. Nonischemic cardiomyopathy. 6. History of atrial fibrillation, had ablation done, currently in sinus rhythm. 7. Chronic degenerative disk disease. So, plan is we will continue the patient on Betapace, doxycycline, Maxipime, analgesic. Steroid has been tapered down. CT scan is ordered. We will follow up procalcitonin and make decision depending on procalcitonin and CT of the chest. If there is no pneumonia, we will switch to p.o. antibiotic and taper down steroid and possible discharge over the weekend. Ross Bowman MD
--- NOTE | 2018-03-16 15:44 | IP.NPCORE ---
COPD Progress Note - COPD Progress Note Plan to assess at outpatient follow up: Yes Symptoms:: Increase in Dyspnea, Cough Initial CXR:: Bibasilar atelectasis Date:: 03/15/18 Oxygen Saturation/Pulse Oximetry:: 97 ABG Not Indicated (Symptoms Improved): Yes Nebulizers Q2-4 hrs:: Duonebs/Albuterol Therapy Antibiotics (Name/Dose/Frequency):: Cefepime IV q8 Systemic Steroids w/ methylprednisolone Name/Dose/Frequency:: solumedrol 40 iv q12 Oxygen Delivery Method: Nasal Cannula Oxygen Flow Rate: 3 Smoking cessation counseling all stages copd exacerbation: Yes
[2018-03-16] MEDS: oxyCODONE 10 mg Immediate Release Tab PO PRN (22:55)
[2018-03-17] MEDS: Albuterol-Ipratrop 3 mg / 0.5 (3 ml) UD IH SCH ×2 (01:17→09:39)
[2018-03-17] MEDS: Cefepime 0.5 GM in Sodium Chloride 0.9% 100 ML IVPB SCH ×3 (01:47→17:46)
[2018-03-17] MEDS: oxyCODONE 20 mg ER Tab (oxyCONTIN) PO SCH ×2 (06:26→19:02)
[2018-03-17 07:35] LABS: HEMOGLOBIN 13.6 g/dL (14.0-18.0); MEAN CELL VOLUME 78.7 fl (80.0-105.0); MEAN CORPUSCULAR HEMOGLOBIN 25.9 pg (25.0-35.0); MEAN CORPUSCULAR HGB CONC 32.9 g/dl (31.0-37.0); MEAN PLATELET VOLUME 9.8 fl (7.0-11.0); RBC 5.26 10^6/uL (3.5-6.1); WHITE BLOOD COUNT 11.3 10^3/ul (4.5-11.0)
[2018-03-17 08:05] LABS: ALB/GLOB RATIO 1.4 (1.1-1.8); ALT/SGPT 20 U/L (7-56); AST/SGOT 24 U/L (17-59); BLOOD UREA NITROGEN 16 mg/dL (7-21); CALCIUM 10.2 mg/dL (8.4-10.5); GFR AFRICAN-AMERICAN > 60; GFR NON-AFRICAN AMERICAN > 60
[2018-03-17] MEDS: Potassium Chloride 10 mEq ER Tab PO SCH (09:21)
[2018-03-17] MEDS: POLYETHYLENE GLYCOL 3350 17 GM/Dose PACKET PO SCH (09:22)
[2018-03-17] MEDS: MethylPREDNISolone 40 mg Vial IVP SCH ×2 (09:22→21:21)
[2018-03-17] MEDS: Budesonide 0.5 mg/2 ml Inhal Susp UD IH SCH ×2 (09:41→19:56)
[2018-03-17] MEDS: diltiaZEM IVPB 100mg in NS 100 ML IV SCH (09:50)
[2018-03-17] MEDS: Enoxaparin 60 mg Syringe SC SCH ×2 (10:14→21:21)
--- NOTE | 2018-03-17 10:28 | CARD ---
APPROVED REPORT Date of service: 03/17/2018 EKG Measurement Heart [id number] <Conclusion> Atrial fibrillation with rapid ventricular response with premature ventricular or aberrantly conducted complexes RSR' or QR pattern in V1 suggests right ventricular conduction delay Inferior infarct, age undetermined Abnormal ECG
--- NOTE | 2018-03-17 12:03 | PN ---
Copied To: Jp Lacy MD Attending MD: Jp Lacy MD DATE: 03/17/2018 PULMONARY PROGRESS NOTE SUBJECTIVE: Patient was seen and examined at bedside. He is receiving nebulizer treatment at the present time. He is coughing productively and expectorating yellow green sputum. The sputum is being collected for cultures. PHYSICAL EXAMINATION: VITAL SIGNS: Temperature 97.7, pulse 64, respirations 20, pulse oximetry is 97% on room air. HEAD, EARS, NOSE AND THROAT: Within normal limits. NECK: Supple. There is no jugular vein distention. CARDIOVASCULAR: S1, S2. No S3, irregular. PULMONARY: Bilateral coarse rhonchi more in the lower lobe, a few expiratory wheezes. GI: Soft, nontender. No organomegaly. EXTREMITIES: 1+ pedal edema. SKIN: No acute skin rashes. NEUROLOGIC: No focal deficits. LABORATORY DATA: Additional data reviewed. Today's potassium is 4.2, sodium 141, chloride is 100. WBC is 11.3, hemoglobin of 13.6. ASSESSMENT: 1. Exacerbation of chronic obstructive pulmonary disease. 2. Acute bronchitis, rule out pneumonia versus subsegmental atelectasis, left base. 3. Coronary artery disease. PLAN: Patient will continue on inhalation therapy with DuoNeb and added budesonide. He is also on systemic steroids with Solu-Medrol 40 mg IV every 12 hours. Procalcitonin is pending. We are sending sputum for cultures. We are also aware the patient is being transferred to Telemetry for [facility]. Jp Lacy MD
--- NOTE | 2018-03-17 14:07 | PN ---
Copied To: Ross Bowman MD Attending MD: Ross Bowman MD DATE: 03/17/2018 SUBJECTIVE: The patient is a 58-year-old who states he was constipated, he went to the bathroom this morning, he was straining and he was noted to have rapid atrial fibrillation on monitor, so he was transferred to Telemetry, started on Cardizem drip, still a little tachy and in atrial fibrillation. No nausea or vomiting, no diarrhea. PHYSICAL EXAMINATION: VITAL SIGNS: Afebrile; pulse 75; respirations 20; later on around 10 o'clock, his heart rate was 152; blood pressure 119/71. LUNGS: Bilateral fair airflow. No rhonchi or crackle. HEART: S1, S2 audible, irregular, tachy. ABDOMEN: Soft, nontender. No rebound, no guarding. NEUROLOGICAL: He is awake, alert, oriented, communicative. EXTREMITIES: Moves all extremities. LABORATORY EXAM: WBC 11.3, hemoglobin 13, hematocrit 41, platelet 193. Chemistry: Sodium 141, potassium 4.2, chloride 100, CO2 29, BUN 16, creatinine 0.6, blood sugar of 116, procalcitonin 0.10. Blood cultures are negative. CT scan of the chest shows density of consolidation in the posterior lower lobes bilaterally, also some linear scarring in the superior segment of the lower lobes. The lungs have hyperinflated, appearance, otherwise, suggestive of COPD. ASSESSMENT: 1. Community acquired pneumonia. 2. Recurrence of atrial fibrillation. 3. Nonischemic cardiomyopathy. PLAN: Currently, he is on Cardizem drip, he is given a dose of Lovenox 60 mg every 12 hours. We will continue him on current antibiotics. We will follow up closely. Ross Bowman MD
[2018-03-17] MEDS: oxyCODONE 10 mg Immediate Release Tab PO PRN (14:39)
--- NOTE | 2018-03-17 17:37 | CON ---
Copied To: Shaila Samuel MD Attending MD: Shaila Samuel MD DATE: 03/17/2018 REASON FOR CONSULTATION: AFib with rapid ventricular rate, cardiac evaluation followup. BRIEF CLINICAL HISTORY: This is a 58-year-old male with past medical history of nonischemic cardiomyopathy, hypertension, chronic back pain, history of atrial fibrillation, status post radiofrequency ablation admitted with acute exacerbation of COPD. This morning, the patient was complaining of palpitation. EKG was found to be AFib with rapid ventricular rate. Cardiology consult was called. The patient denies any chest pain. Denies any shortness of breath, complained earlier of some palpitation. PAST MEDICAL HISTORY: Significant for atrial fibrillation, status post radiofrequency ablation in 06/2017, status post cardiac catheterization, nonobstructive coronary artery disease. Cardiac catheterization done in 11/2013 when the patient presented with non-STEMI, history of COPD, history of cardiomyopathy, history of recently admitted with sepsis, PICC line, went to the rehab, admitted to [facility] for full-blown sepsis, later on they treated with IV antibiotic. PREVIOUS CARDIAC WORKUP: As follows: History of cardiac catheterization in 11/2013, essentially normal coronaries; cardiomyopathy was secondary to thrombus in the coronary possibly; later on, the MUGA scan shows ejection fraction significantly improved to 54%. At that time as mentioned above, patient had non-STEMI, most likely secondary to thrombus, went into from LV to coronaries. Then serial MUGA scan was done on 04/2014, 65% where is in 10/2013, 54% EF. Most recent echo on 06/01/2017, that shows borderline LV function within normal limit, mild pulmonary hypertension. Last echo repeated at [facility], dated 09/08/2017, read by Dr. Garg, systolic function borderline, RV systolic function moderately reduced, mild tricuspid regurgitation, [id number] pulmonary hypertension. No mitral valve regurgitation noted and calculated ejection fraction of 48%. Calculated RVSP 47%. History of lumbar radiculopathy, secondary to spinal canal disease, history of COPD. SOCIAL HISTORY: Denies smoking, denies any history of alcohol abuse. REVIEW OF SYSTEMS: As per HPI. PHYSICAL EXAMINATION: As follows: VITAL SIGNS: Temperature afebrile, heart rate 140, blood pressure 114/75. HEENT: PERRLA. Extraocular muscles intact. NECK: Supple. No carotid bruits or thyromegaly. CHEST: Clear to auscultation. HEART: S1 and S2 regular. ABDOMEN: Soft. EXTREMITIES: Clubbing and cyanosis negative. LABORATORY DATA: Blood workup as follows: WBC 11, hemoglobin 13.4, hematocrit 41.7, platelet count 193. Chemistry shows sodium 141, potassium 4.2, chloride 100, carbon dioxide 29, anion gap of 17, BUN 16, creatinine 0.6. EKG shows AFib with rapid ventricular rate. IMPRESSION: Atrial fibrillation with rapid ventricular rate, chronic obstructive pulmonary disease, hypertension, nonobstructive coronary artery disease, cardiomyopathy, status post radiofrequency ablation, admitted with chronic obstructive pulmonary disease. RECOMMENDATIONS: Avoid dual nebulizer, put into Xopenex, start Cardizem 10 mg IV push followed by 5 mg, transfer to telemetry because though it is telemetry, but we cannot get stat drip. I will give low doses of anticoagulation as a bridge for this new episode of atrial fibrillation. Monitor H and H closely. Also add TSH stat in the blood to rule out any hyperthyroidism. We will discontinue dual nebulizer treatment to Xopenex. We will start as mentioned. We will put the Lovenox 1 mg/kg and monitor the . Further recommendations will depend upon the hospital course. We will follow with you. Repeat CBC and CMP in the morning as well as mag and phos. Thank you, Dr. Bowman, for providing us the opportunity in taking care of patient, Demetrio Cano. Shaila Samuel MD
[2018-03-17] MEDS: Levalbuterol 0.63 MG/3 ML Inhal Soln UD IH PRN (19:56)
[2018-03-18] MEDS: oxyCODONE 10 mg Immediate Release Tab PO PRN ×2 (02:41→12:28)
[2018-03-18] MEDS: diltiaZEM IVPB 100mg in NS 100 ML IV SCH ×2 (02:42→05:01)
[2018-03-18] MEDS: Cefepime 0.5 GM in Sodium Chloride 0.9% 100 ML IVPB SCH ×3 (05:38→21:44)
[2018-03-18] MEDS: oxyCODONE 20 mg ER Tab (oxyCONTIN) PO SCH ×2 (06:01→17:26)
[2018-03-18 07:30] LABS: BASO # 0.01 K/mm3 (0.0-2.0); BASO % 0.1 % (0.0-3.0); GRAN # 7.33 (1.4-6.5); GRAN % 89.3 % (50.0-68.0); LYMPH # 0.7 (1.2-3.4); LYMPH % 7.9 % (22.0-35.0); MEAN CELL VOLUME 79.2 fl (80.0-105.0); MEAN CORPUSCULAR HEMOGLOBIN 25.7 pg (25.0-35.0); MEAN CORPUSCULAR HGB CONC 32.4 g/dl (31.0-37.0); MEAN PLATELET VOLUME 10.2 fl (7.0-11.0); MONO # 0.2 (0.1-0.6); MONO % 2.7 % (1.0-6.0); RBC 5.06 10^6/uL (3.5-6.1); WHITE BLOOD COUNT 8.2 10^3/ul (4.5-11.0)
[2018-03-18] MEDS: Budesonide 0.5 mg/2 ml Inhal Susp UD IH SCH ×2 (07:37→19:44)
[2018-03-18] MEDS: Levalbuterol 0.63 MG/3 ML Inhal Soln UD IH PRN ×2 (07:37→19:44)
--- NOTE | 2018-03-18 07:50 | CP.PCM.PN ---
Subjective - Date & Time of Evaluation Date of Evaluation: 03/18/18 Time of Evaluation: 06:30 - Subjective Subjective: Awake, no distress, denies shortness of breath Reason for consultation and follow up: Cardiac evaluation of rapid ventricular rate Atrial fibrillation, history of chronic Afib, coronary artery disease, congestive heart failure, COPD, myocardial infarction, hypertension. Seen and examined by me and Dr. Samuel Objective - Vital Signs/Intake and Output Vital Signs (last 24 hours): Temp Pulse Resp BP Pulse Ox 97.7 F 77 20 101/69 95 03/18/18 06:00 03/18/18 06:00 03/18/18 06:00 03/18/18 06:00 03/18/18 06:00 Intake and Output: 03/18/18 03/18/18 06:59 18:59 Intake Total 2230 Output Total 1200 Balance 1030 - Medications Medications: Current Medications Acetaminophen (Tylenol 325mg Tab) 650 mg PO Q4H PRN PRN Reason: Fever >100.5 F Albuterol/Ipratropium (Duoneb 3 Mg/0.5 Mg (3 Ml) Ud) 3 ml IH Q3H PRN PRN Reason: Shortness of Breath Alprazolam (Xanax) 0.5 mg PO BID [facility] PRN Reason: Protocol Last Admin: 03/17/18 17:46 Dose: 0.5 mg Aspirin (Ecotrin) 81 mg PO DAILY [facility] Last Admin: 03/17/18 09:21 Dose: 81 mg Budesonide (Pulmicort Respules) 0.5 mg IH [id number] [facility] Last Admin: 03/18/18 07:37 Dose: 0.5 mg Doxycycline Hyclate (Doryx) 100 mg PO Q12 [facility] Stop: 03/20/18 22:01 Last Admin: 03/17/18 21:21 Dose: 100 mg Enoxaparin Sodium (Lovenox) 60 mg SC Q12H [facility] PRN Reason: Protocol Last Admin: 03/17/18 21:21 Dose: 60 mg Ferrous Sulfate (Feosol) 324 mg PO BID [facility] Last Admin: 03/17/18 17:46 Dose: 324 mg Furosemide (Lasix) 40 mg PO DAILY [facility] Last Admin: 03/17/18 10:14 Dose: 40 mg diltiaZEM IVPB 100mg in NS (Cardizem 100mg In Ns) 100 mls @ 5 mls/hr IV .Q20H ERNESTINA PRN Reason: 5 MG/HR Last Admin: 03/18/18 05:01 Dose: Not Given Cefepime HCl 0.5 gm/ Sodium (Chloride) 100 mls @ 100 mls/hr IVPB 0600,1400, 2200 ERNESTINA PRN Reason: Protocol Last Admin: 03/18/18 05:38 Dose: 100 mls/hr Levalbuterol HCl (Xopenex) 0.63 mg IH [id number] PRN PRN Reason: Shortness of Breath Last Admin: 03/18/18 07:37 Dose: 0.63 mg Methylprednisolone (Solu-Medrol) 40 mg IVP Q12 [facility] Last Admin: 03/17/18 21:21 Dose: 40 mg Oxycodone HCl (Oxycontin Extended Release Tab) 20 mg PO 0600,1800 [facility] Last Admin: 03/18/18 06:01 Dose: Not Given Oxycodone HCl (Oxycodone Immediate Release Tab) 10 mg PO BID PRN PRN Reason: Pain, moderate (4-7) Last Admin: 03/18/18 02:41 Dose: 10 mg Polyethylene Glycol (Miralax) 17 gm PO DAILY [facility] Last Admin: 03/17/18 09:22 Dose: 17 gm Potassium Chloride (Klor-Con 10) 10 meq PO DAILY [facility] Last Admin: 03/17/18 09:21 Dose: 10 meq Roflumilast (Daliresp) 500 mcg PO DAILY [facility] Last Admin: 03/17/18 09:20 Dose: 500 mcg Sotalol HCl (Betapace) 80 mg PO BID [facility] Last Admin: 03/17/18 17:40 Dose: Not Given - Labs Labs: 03/18/18 06:00 03/17/18 07:00 PT 11.6 SECONDS (9.4-12.5) 03/15/18 06:03 INR 1.01 03/15/18 06:03 APTT 25.5 Seconds (25.1-36.5) 03/15/18 06:03 - Constitutional Appears: No Acute Distress - Eye Exam Eye Exam: Normal appearance - ENT Exam ENT Exam: Mucous Membranes Moist - Respiratory Exam Respiratory Exam: Decreased Breath Sounds, Clear to Ausculation Bilateral, NORMAL BREATHING PATTERN - Cardiovascular Exam Cardiovascular Exam: REGULAR RHYTHM, +S1, +S2 Additional comments: Telemetry NSR 60's - GI/Abdominal Exam GI & Abdominal Exam: Soft, Normal Bowel Sounds - Extremities Exam Extremities Exam: Normal Capillary Refill - Neurological Exam Neurological Exam: Alert, Awake, Oriented x3 - Psychiatric Exam Psychiatric exam: Normal Affect - Skin Skin Exam: Dry, Warm Assessment and Plan - Assessment and Plan (Free Text) Assessment: A 57 year old male who came in to the ER due to shortness of breath. History of chronic Afib, post radiofrequency ablation, coronary artery disease, congestive heart failure, COPD, myocardial infarction, non ischemic cardiomyopathy,hypertension and chronic back pain. Admitted for excerbation of COPD. Cardiac consult was called due to feeling of palpitations and EKG showed rapid Afib. Started on Iv cardizem after bolus. Plan: Denies any shortness of breath or palpitation On IV cardizem drip at 5 mg /hr Telemetry shows NSR at 60's-70's Will discontinue IV Cardizem and switch to oral On ASA 81 mg daily,Lasix 40 mg daily,Solumedrol 40 mg q 12 hours Sotalol 80 mg BID Stable blood pressure Continue current treatment Continue current medications Will follow up Plan and treatment discussed with Dr. Samuel
[2018-03-18 08:32] LABS: ALB/GLOB RATIO 1.4 (1.1-1.8); ALBUMIN 3.6 g/dL (3.0-4.8); ALT/SGPT 28 U/L (7-56); AST/SGOT 12 U/L (17-59); BLOOD UREA NITROGEN 20 mg/dL (7-21); CALCIUM 9.4 mg/dL (8.4-10.5); GFR AFRICAN-AMERICAN > 60; GFR NON-AFRICAN AMERICAN > 60
[2018-03-18] MEDS ORDERED: Alum-Mag Hydrox-Simethicone Susp (30 mL) PO ONE (09:03)
[2018-03-18] MEDS: POLYETHYLENE GLYCOL 3350 17 GM/Dose PACKET PO SCH (09:22)
[2018-03-18] MEDS: Potassium Chloride 10 mEq ER Tab PO SCH (09:23)
[2018-03-18] MEDS: MethylPREDNISolone 40 mg Vial IVP SCH ×2 (09:24→21:02)
[2018-03-18] MEDS: Enoxaparin 60 mg Syringe SC SCH ×2 (09:25→21:01)
--- NOTE | 2018-03-18 10:18 | PN ---
Copied To: Jp Lacy MD Attending MD: Jp Lacy MD DATE: 03/18/2018 PULMONARY PROGRESS NOTE SUBJECTIVE: The patient was seen and examined at the bedside on telemetry. PHYSICAL EXAMINATION: VITAL SIGNS: His temperature is 97, pulse 80, respirations 20, pulse oximetry is 95 on nasal cannula, blood pressure 117/72. HEENT: Head normocephalic and atraumatic. NECK: Supple with no jugular vein distentions. CARDIOVASCULAR: S1, S2. No S3. Irregular. PULMONARY: Diminished breath sounds bilaterally with scattered rhonchi, prolonged expiration and few expiratory wheezes. GI: Soft, nontender. No organomegaly. EXTREMITIES: 1+ pedal edema. SKIN: Clear with no cyanosis and no skin rashes. NEUROLOGIC: No focal deficits. LABORATORY DATA: Reviewed. WBC is 8.2, today's hemoglobin is 13. Sodium 140, potassium 4.9, chloride 102. ASSESSMENT: 1. Exacerbation of severe chronic obstructive pulmonary disease. 2. Hypoxia. 3. Cardiomyopathy. 4. Cardiac arrhythmia. 5. Community acquired pneumonia. PLAN: Currently, he is on telemetry with Cardizem drips. He is on intravenous antibiotics. He is receiving nebulizer treatment with added steroids. I reviewed his latest CT scan of chest which was done on 03/16/2018. That shows chronic changes with some bilateral organized pleural effusions and possible infiltrates with air bronchogram at left base, although it appears to me more chronic than acute. So, we will continue with current intervention as well as Cardiology intervention and Dr. Bowman's note were reviewed and agreed with plan. Jp Lacy MD
--- NOTE | 2018-03-18 14:47 | PN ---
Copied To: Johnathon iWlloughby MD Attending MD: Johnathon Willoughby MD DATE: 03/18/2018 SUBJECTIVE: The patient has no complaints of any chest pain. No shortness of breath. No headache or dizziness. PHYSICAL EXAMINATION: VITAL SIGNS: Temperature is 97.7, pulse of 80, blood pressure is 117/72, respiration is 20. GENERAL: The patient is lying in bed, flat, comfortable. HEENT: No oral lesion. Anicteric sclerae. Moist mucosa. NECK: No JVD, adenopathy, or thyromegaly. CARDIOVASCULAR: S1 and S2, regular. No murmurs, rubs, or gallops. LUNGS: Clear to auscultation bilaterally. No wheeze, rales, or rhonchi. ABDOMEN: Bowel sounds are positive, soft, nontender and nondistended. EXTREMITIES: No cyanosis, clubbing or edema. LABORATORY DATA: White count of 8.3, hemoglobin of 13. Creatinine is 0.6. ASSESSMENT: 1. Community-acquired pneumonia. 2. Nonischemic cardiomyopathy. 3. Atrial fibrillation. 4. Acute chronic obstructive pulmonary disease. PLAN: The patient is currently admitted to the hospital. The patient is on Solu-Medrol. He states he is feeling better. He is on Xopenex. This will be continued. He is on MiraLax for constipation. The patient is on Lovenox for DVT prophylaxis. He is receiving iron supplement. The patient is receiving doxycycline for antibiotic. He is on Cardizem for his atrial fibrillation. He is going to continue with sotalol as well. Johnathon Willoughby MD
[2018-03-19] MEDS: oxyCODONE 10 mg Immediate Release Tab PO PRN ×3 (00:56→22:37)
[2018-03-19] MEDS: Cefepime 0.5 GM in Sodium Chloride 0.9% 100 ML IVPB SCH ×3 (04:59→22:17)
[2018-03-19] MEDS: oxyCODONE 20 mg ER Tab (oxyCONTIN) PO SCH (06:03)
--- NOTE | 2018-03-19 06:43 | CP.PCM.PN ---
Subjective - Date & Time of Evaluation Date of Evaluation: 03/19/18 Time of Evaluation: 06:35 - Subjective Subjective: Awake, ambulating to bathroom,mild shortness of breath on exertion Reason for consultation and follow up: Cardiac evaluation of rapid ventricular rate Atrial fibrillation, history of chronic Afib, coronary artery disease, congestive heart failure, COPD, myocardial infarction, hypertension. Seen and examined by me and Dr. Samuel Objective - Vital Signs/Intake and Output Vital Signs (last 24 hours): Temp Pulse Resp BP Pulse Ox 98.7 F 75 20 103/68 95 03/19/18 06:00 03/19/18 06:00 03/19/18 06:00 03/19/18 06:00 03/19/18 06:00 Intake and Output: 03/18/18 03/19/18 18:59 06:59 Intake Total 960 318 Output Total 625 325 Balance 335 -7 - Medications Medications: Current Medications Acetaminophen (Tylenol 325mg Tab) 650 mg PO Q4H PRN PRN Reason: Fever >100.5 F Albuterol/Ipratropium (Duoneb 3 Mg/0.5 Mg (3 Ml) Ud) 3 ml IH Q3H PRN PRN Reason: Shortness of Breath Alprazolam (Xanax) 0.5 mg PO BID [facility] PRN Reason: Protocol Last Admin: 03/18/18 17:26 Dose: 0.5 mg Aspirin (Ecotrin) 81 mg PO DAILY [facility] Last Admin: 03/18/18 09:22 Dose: 81 mg Budesonide (Pulmicort Respules) 0.5 mg IH [id number] [facility] Last Admin: 03/18/18 19:44 Dose: 0.5 mg Diltiazem HCl (Cardizem) 30 mg PO Q8 [facility] Last Admin: 03/19/18 04:59 Dose: 30 mg Doxycycline Hyclate (Doryx) 100 mg PO Q12 [facility] Stop: 03/20/18 22:01 Last Admin: 03/18/18 21:02 Dose: 100 mg Enoxaparin Sodium (Lovenox) 40 mg SC DAILY [facility] PRN Reason: Protocol Ferrous Sulfate (Feosol) 324 mg PO BID [facility] Last Admin: 03/18/18 17:26 Dose: 324 mg Furosemide (Lasix) 40 mg PO DAILY [facility] Last Admin: 03/18/18 09:23 Dose: 40 mg Home Med (Home Med) 1 unit PO DAILY [facility] Cefepime HCl 0.5 gm/ Sodium (Chloride) 100 mls @ 100 mls/hr IVPB 0600,1400, 2200 [facility] PRN Reason: Protocol Last Admin: 03/19/18 04:59 Dose: 100 mls/hr Levalbuterol HCl (Xopenex) 0.63 mg IH [id number] PRN PRN Reason: Shortness of Breath Last Admin: 03/18/18 19:44 Dose: 0.63 mg Methylprednisolone (Solu-Medrol) 40 mg IVP Q12 [facility] Last Admin: 03/18/18 21:02 Dose: 40 mg Oxycodone HCl (Oxycontin Extended Release Tab) 20 mg PO 0600,1800 [facility] Last Admin: 03/19/18 06:03 Dose: Not Given Oxycodone HCl (Oxycodone Immediate Release Tab) 10 mg PO BID PRN PRN Reason: Pain, moderate (4-7) Last Admin: 03/19/18 00:56 Dose: 10 mg Polyethylene Glycol (Miralax) 17 gm PO DAILY [facility] Last Admin: 03/18/18 09:22 Dose: 17 gm Potassium Chloride (Klor-Con 10) 10 meq PO DAILY [facility] Last Admin: 03/18/18 09:23 Dose: 10 meq Roflumilast (Daliresp) 500 mcg PO DAILY [facility] Last Admin: 03/18/18 09:23 Dose: 500 mcg Sotalol HCl (Betapace) 80 mg PO BID [facility] Last Admin: 03/18/18 17:26 Dose: 80 mg - Labs Labs: 03/18/18 06:00 03/18/18 06:00 PT 11.6 SECONDS (9.4-12.5) 03/15/18 06:03 INR 1.01 03/15/18 06:03 APTT 25.5 Seconds (25.1-36.5) 03/15/18 06:03 - Eye Exam Eye Exam: Normal appearance - ENT Exam ENT Exam: Mucous Membranes Moist - Respiratory Exam Respiratory Exam: Decreased Breath Sounds, Rhonchi, NORMAL BREATHING PATTERN - Cardiovascular Exam Cardiovascular Exam: REGULAR RHYTHM, +S1, +S2 - GI/Abdominal Exam GI & Abdominal Exam: Soft, Normal Bowel Sounds - Extremities Exam Extremities Exam: Normal Capillary Refill - Neurological Exam Neurological Exam: Alert, Awake, Oriented x3 - Psychiatric Exam Psychiatric exam: Normal Affect - Skin Skin Exam: Dry, Warm Assessment and Plan - Assessment and Plan (Free Text) Assessment: A 57 year old male who came in to the ER due to shortness of breath. History of chronic Afib, post radiofrequency ablation, coronary artery disease, congestive heart failure, COPD, myocardial infarction, non ischemic cardiomyopathy,hypertension and chronic back pain. Admitted for excerbation of COPD. Cardiac consult was called due to feeling of palpitations and EKG showed rapid Afib. IV Cardizem given. Plan: Mild shortness on breath on exertion,walking to bathroom Continue nebulizer treatment as ordered Continue IV antibiotics as ordered IV Cardizem switch to oral Telemetry remains NSR at 60's-70's On ASA 81 mg daily,Lasix 40 mg daily,Solumedrol 40 mg q 12 hours Sotalol 80 mg BID, Cardizem 30 mg TID Stable blood pressure Continue current treatment Continue current medications Will follow up Plan and treatment discussed with Dr. Samuel
[2018-03-19] MEDS: Levalbuterol 0.63 MG/3 ML Inhal Soln UD IH PRN ×2 (07:47→13:17)
[2018-03-19] MEDS: Budesonide 0.5 mg/2 ml Inhal Susp UD IH SCH ×2 (07:47→20:21)
--- NOTE | 2018-03-19 09:24 | PN ---
Copied To: Bob Love MD Attending MD: Bob Love MD DATE: 03/19/2018 PULMONARY PROGRESS NOTE SUBJECTIVE: The patient is markedly better, sitting in bed, conversing without any shortness of breath. He states that he is markedly better since being here in the hospital. His history has been reviewed once again with the patient as I have not seen my patient in quite sometime. There is a history of back surgery in extended period of time in convalescent rehabilitation. PHYSICAL EXAMINATION: GENERAL: The patient remains comfortable, in no acute distress. VITAL SIGNS: Stable, afebrile. Heart rate 80, respiratory rate 16, O2 sat 95% on nasal cannula, blood pressure 120/70. HEENT: Normocephalic, atraumatic. NECK: Supple. No JVD. No lymphadenopathy. No bruit. CARDIOVASCULAR: Regular rhythm. S1, S2, irregular rhythm. No gallop appreciated. LUNGS: Global decrease in breath sounds with minimal rales. No wheezes appreciated. ABDOMEN: Soft. Bowel sounds normoactive without mass, guarding, rebound or organomegaly. EXTREMITIES: Reveal no clubbing or cyanosis. There is trace edema. SKIN: No rash or excoriation. NEUROLOGIC: No focal findings. LYMPH NODES: No lymphadenopathy found in evaluation of the supraclavicular notch, cervical, inguinal and axillary areas. DATA: Chest x-ray of late shows no changes when compared to previous although it is important to see whether or not there is an underlying pneumonitis or subsequent atelectasis. Followup x-ray requested. ASSESSMENT: 1. Severe chronic obstructive pulmonary disease. 2. Hypoxemia. 3. Severe cardiomegaly and coronary artery disease. 4. Cardiac arrhythmia. 5. Pulmonary vascular congestion/congestive heart failure. 6. Pneumonitis versus atelectasis. PLAN: Continue antibiotics and vigorous inhaled bronchodilators. We will repeat a chest x-ray PA and lateral to make sure that there is some improvement on the film. It is hard to believe that the way this patient looks with suspected pneumonia is incongruous. We will follow closely and decide on the need for further intervention if the chest x-ray in fact looks better; perhaps a followup CAT scan will be required. Continue antibiotics for now as the patient has improved dramatically over the course of the last several days. We will follow closely and decide on the need for further intervention. He should have a good PA and lateral chest x-ray in the department. Thank you for the opportunity to evaluate this kemi gentleman. Bob Love MD MTDD
[2018-03-19] MEDS: MethylPREDNISolone 40 mg Vial IVP SCH ×2 (09:39→22:16)
[2018-03-19] MEDS: POLYETHYLENE GLYCOL 3350 17 GM/Dose PACKET PO SCH (09:40)
[2018-03-19] MEDS: Potassium Chloride 10 mEq ER Tab PO SCH (09:41)
[2018-03-19] MEDS: Enoxaparin 40 mg Syringe SC SCH (09:55)
[2018-03-19] MEDS: LINZESS 145 MCG PO SCH (09:56)
[2018-03-19] MEDS ORDERED: oxyCODONE 20 mg ER Tab (oxyCONTIN) PO PRN (10:54)
--- NOTE | 2018-03-19 11:31 | RAD ---
Date of service: 03/19/2018 HISTORY: Pneumonia vs atelectasis COMPARISON: 03/15/2018 TECHNIQUE: Chest PA and lateral FINDINGS: LUNGS: Linear atelectasis in both lungs. The lungs are otherwise clear PLEURA: No significant pleural effusion identified. No pneumothorax apparent. CARDIOVASCULAR: Normal. OSSEOUS STRUCTURES: No significant abnormalities. VISUALIZED UPPER ABDOMEN: Normal. OTHER FINDINGS: None. IMPRESSION: No active disease.
--- NOTE | 2018-03-19 13:22 | PN ---
Copied To: Ross Bowman MD Attending MD: Ross Bowman MD DATE: 03/19/2019 SUBJECTIVE: The patient is 58 years old, seen and examined, seen frustrated, gets short of breath on walking to the bathroom. States cough is better than before. No nausea, vomiting or diarrhea. PHYSICAL EXAMINATION: GENERAL: The patient is afebrile. VITAL SIGNS: Pulse 70, respirations 20, blood pressure 122/75. LUNGS: Bilateral diffusely decreased breath sound. HEART: S1 and S2 audible. ABDOMEN: Soft, obese, nontender. No rebound. No guarding. NEUROLOGICAL: The patient is awake, alert, oriented, communicative, ambulatory. EXTREMITIES: Bilateral legs, no edema. LABORATORY DATA: Blood cultures are negative. X-ray of chest was done this morning, is pending. ASSESSMENT AND PLAN: Chronic obstructive pulmonary edema exacerbation, bilateral basal atelectasis, history of atrial fibrillation, got into atrial fibrillation again, was on Cardizem drip, that was discontinued yesterday. Currently, he is on sotalol and diltiazem 30 mg every eight hours, switch to p.o. Cardizem. Usually, the problem is his blood pressure is running on the low side, we will see if we can control his heart rate with sotalol and diltiazem. Second issue is the patient has a and was in sinus rhythm for good period of time. The patient had history of rectal bleeding while he was on Eliquis. Since he is in sinus rhythm, we will hold off on anticoagulant. The patient was told there is risk of stroke or bleeding if he is on anticoagulant and if not, he has risk of stroke, he understands that and choose not to be on anticoagulant. The patient is not actively wheezing. I will cut down his steroid in the morning and make discharge plan. Ross Bowman MD
[2018-03-20] MEDS: Cefepime 0.5 GM in Sodium Chloride 0.9% 100 ML IVPB SCH ×2 (06:00→13:49)
[2018-03-20] MEDS: oxyCODONE 10 mg Immediate Release Tab PO PRN ×2 (06:00→13:30)
--- NOTE | 2018-03-20 07:15 | CP.PCM.PN ---
Subjective - Date & Time of Evaluation Date of Evaluation: 03/20/18 Time of Evaluation: 06:10 - Subjective Subjective: Awake, no distress, lying in bed Reason for consultation and follow up: Cardiac evaluation of rapid ventricular rate Atrial fibrillation, history of chronic Afib, coronary artery disease, congestive heart failure, COPD, myocardial infarction, hypertension. Seen and examined by me and Dr. Samuel Objective - Vital Signs/Intake and Output Vital Signs (last 24 hours): Temp Pulse Resp BP Pulse Ox 98.7 F 68 18 115/74 95 03/19/18 23:25 03/20/18 05:59 03/19/18 23:25 03/20/18 05:59 03/19/18 23:25 Intake and Output: 03/20/18 03/20/18 06:59 18:59 Intake Total 540 Output Total 600 Balance -60 - Medications Medications: Current Medications Acetaminophen (Tylenol 325mg Tab) 650 mg PO Q4H PRN PRN Reason: Fever >100.5 F Albuterol/Ipratropium (Duoneb 3 Mg/0.5 Mg (3 Ml) Ud) 3 ml IH Q3H PRN PRN Reason: Shortness of Breath Alprazolam (Xanax) 0.5 mg PO BID [facility] PRN Reason: Protocol Last Admin: 03/19/18 18:28 Dose: 0.5 mg Aspirin (Ecotrin) 81 mg PO DAILY [facility] Last Admin: 03/19/18 09:40 Dose: 81 mg Budesonide (Pulmicort Respules) 0.5 mg IH [id number] [facility] Last Admin: 03/19/18 20:21 Dose: 0.5 mg Diltiazem HCl (Cardizem) 30 mg PO Q8 [facility] Last Admin: 03/20/18 05:59 Dose: 30 mg Doxycycline Hyclate (Doryx) 100 mg PO Q12 [facility] Stop: 03/20/18 22:01 Last Admin: 03/19/18 22:15 Dose: 100 mg Enoxaparin Sodium (Lovenox) 40 mg SC DAILY [facility] PRN Reason: Protocol Last Admin: 03/19/18 09:55 Dose: 40 mg Ferrous Sulfate (Feosol) 324 mg PO BID [facility] Last Admin: 03/19/18 18:28 Dose: 324 mg Furosemide (Lasix) 40 mg PO DAILY [facility] Last Admin: 03/19/18 09:40 Dose: 40 mg Home Med (Home Med) 1 unit PO DAILY [facility] Last Admin: 03/19/18 09:56 Dose: 1 unit Cefepime HCl 0.5 gm/ Sodium (Chloride) 100 mls @ 100 mls/hr IVPB 0600,1400, 2200 [facility] PRN Reason: Protocol Last Admin: 03/20/18 06:00 Dose: 100 mls/hr Levalbuterol HCl (Xopenex) 0.63 mg IH [id number] PRN PRN Reason: Shortness of Breath Last Admin: 03/19/18 13:17 Dose: 0.63 mg Methylprednisolone (Solu-Medrol) 40 mg IVP Q12 [facility] Last Admin: 03/19/18 22:16 Dose: 40 mg Oxycodone HCl (Oxycodone Immediate Release Tab) 10 mg PO BID PRN PRN Reason: Pain, moderate (4-7) Last Admin: 03/20/18 06:00 Dose: 10 mg Oxycodone HCl (Oxycontin Extended Release Tab) 20 mg PO 0600,1800 PRN PRN Reason: Pain, moderate (4-7) Last Admin: 03/19/18 18:34 Dose: 20 mg Polyethylene Glycol (Miralax) 17 gm PO DAILY [facility] Last Admin: 03/19/18 09:40 Dose: 17 gm Potassium Chloride (Klor-Con 10) 10 meq PO DAILY [facility] Last Admin: 03/19/18 09:41 Dose: 10 meq Roflumilast (Daliresp) 500 mcg PO DAILY [facility] Last Admin: 03/19/18 09:53 Dose: 500 mcg Sotalol HCl (Betapace) 80 mg PO BID [facility] Last Admin: 03/19/18 18:29 Dose: 80 mg - Labs Labs: 03/18/18 06:00 03/18/18 06:00 PT 11.6 SECONDS (9.4-12.5) 03/15/18 06:03 INR 1.01 03/15/18 06:03 APTT 25.5 Seconds (25.1-36.5) 03/15/18 06:03 - Constitutional Appears: No Acute Distress - Eye Exam Eye Exam: Normal appearance - ENT Exam ENT Exam: Mucous Membranes Moist - Respiratory Exam Respiratory Exam: Decreased Breath Sounds, NORMAL BREATHING PATTERN - Cardiovascular Exam Cardiovascular Exam: +S1, +S2 - GI/Abdominal Exam GI & Abdominal Exam: Soft, Normal Bowel Sounds - Neurological Exam Neurological Exam: Alert, Awake, Oriented x3 - Skin Skin Exam: Dry, Warm Assessment and Plan - Assessment and Plan (Free Text) Assessment: A 57 year old male who came in to the ER due to shortness of breath. History of chronic Afib, post radiofrequency ablation, coronary artery disease, congestive heart failure, COPD, myocardial infarction, non ischemic cardiomyopathy,hypertension and chronic back pain. Admitted for exacerbation of COPD. Cardiac consult was called due to feeling of palpitations and EKG showed rapid Afib. IV Cardizem given.stabilized heart rate and switched to oral cardizem. Plan: Stable heart rate, off telemetry Denies shortness of breath Mild shortness on breath on exertion,walking to bathroom Continue nebulizer treatment as ordered Continue IV antibiotics as ordered On ASA 81 mg daily,Lasix 40 mg daily,Solumedrol 40 mg q 12 hours Sotalol 80 mg BID, Cardizem 30 mg TID Stable blood pressure Continue current treatment Continue current medications Will follow up Plan and treatment discussed with Dr. Samuel
[2018-03-20] MEDS: Budesonide 0.5 mg/2 ml Inhal Susp UD IH SCH (08:02)
[2018-03-20] MEDS: Levalbuterol 0.63 MG/3 ML Inhal Soln UD IH PRN ×2 (08:02→13:15)
[2018-03-20 08:04] VITALS: TEMP 97.6; O2SAT 98
[2018-03-20 08:37] VITALS: RESP 18
[2018-03-20] MEDS: LINZESS 145 MCG PO SCH (09:44)
[2018-03-20] MEDS: POLYETHYLENE GLYCOL 3350 17 GM/Dose PACKET PO SCH (09:45)
[2018-03-20] MEDS: Potassium Chloride 10 mEq ER Tab PO SCH (09:45)
--- NOTE | 2018-03-20 09:47 | PN ---
Copied To: Bob Love MD Attending MD: Bob Love MD DATE: 03/20/2018 PULMONARY PROGRESS NOTE SUBJECTIVE: Ines is feeling much better today. He is being prepared to go to TCU. He is very comfortable, sitting in bed. He is a little anxious as usual, but he has no respiratory distress. He is receiving antibiotics for presumed pneumonia. Followup chest x-ray done yesterday fails to show this pneumonia, some minimal areas of atelectasis, unsure whether or not a further CT scan will be required to further evaluate this radiographic abnormality. OBJECTIVE: GENERAL: On physical exam, the patient is comfortable sitting in bed discussing current news with his daughter. VITAL SIGNS: Stable, afebrile. Respiratory rate 16; O2 sat 96, on supplemental oxygen; blood pressure 128/80. HEENT: Normocephalic, atraumatic. NECK: Supple. No JVD. No lymphadenopathy. No bruit. CARDIOVASCULAR: Irregular rhythm. No gallop or rub appreciated. LUNGS: Global decrease in breath sounds. No wheezes or rhonchi. Minimal rales noted. ABDOMEN: Soft. Bowel sounds normoactive without mass, guarding, rebound or organomegaly. EXTREMITIES: Reveal no clubbing, cyanosis or edema. There is no Homans' sign. Additional examination findings are stable. CLINICAL DATA: X-ray as described above. PROBLEMS: 1. Chronic obstructive pulmonary disease, markedly improved. 2. Hypoxemia, improved on supplemental oxygen. 3. Possible pneumonia, rule out atelectasis, on antibiotics. 4. Cardiac arrhythmias. 5. Severe cardiomegaly with coronary artery disease and congestive heart failure. 6. Pulmonary vascular congestion/heart failure, stable at this time. PLAN: Continue antibiotics. Continue vigorous attention to bronchodilators and diuretics. Would suggest followup CT scan in 3 to 4 days. We will follow the patient during his sojourn in [facility]. Bob Love MD
[2018-03-20] MEDS: Enoxaparin 40 mg Syringe SC SCH (09:51)
[2018-03-20] MEDS: MethylPREDNISolone 40 mg Vial IVP SCH (09:59)
[2018-03-20] MEDS ORDERED: Simethicone 80 mg Chewtab PO PRN (10:24)
[2018-03-20] MEDS ORDERED: Verapamil 120 mg ER Tab PO SCH (13:00)
[2018-03-20 13:34] VITALS: BP 127/80; PULSE 78
--- NOTE | 2018-03-21 05:14 | DS ---
Copied To: Ross Bowman MD Attending MD: Ross Bowman MD HISTORY OF PRESENT ILLNESS: The patient is 58 years old, seen and examined. He initially came in with an increasing shortness of breath, productive cough. Denies any nausea or vomiting. Still has shortness of breath. Complained of constipation. PHYSICAL EXAMINATION: VITAL SIGNS: He is afebrile, pulse 75, respirations 18, blood pressure 111/67. LUNGS: Bilateral fair airflow. No rhonchi or crackle. HEART: S1 and S2 audible. ABDOMEN: Soft, nontender. No rebound. No guarding. NEUROLOGICAL: He is awake, alert, oriented and communicative. LABORATORY EXAM: There is no new lab available today. ASSESSMENT: 1. Chronic obstructive pulmonary disease exacerbation. 2. Status post brief period of atrial fibrillation, now in sinus rhythm. 3. Nonischemic cardiomyopathy. 4. Chronic degenerative disc disease. 5. History of hypertension, currently running hypotensive. PLAN: Currently, patient is on sotalol. We will change to verapamil 120. Patient still get winded when he goes to the bathroom. He can be transferred to TCU if accepted to monitor his respiratory status. He is currently on antibiotics also, and we will taper down his steroids slowly. Ross Bowman MD
== END 2018-03-20 14:38 | DRG 191 ==
LOC: ED 05:45 → ERH 08:19 → 3RSO 13:06 → 2RSO 03-17 09:42 → 5RNO 03-19 17:20
PROVIDERS: ADMIT Internal Medicine; ATTEND Internal Medicine
PROC: 3E0F7GC Introduction of Other Therapeutic Substance into Respiratory Tract, Via Natural or Artificial Opening (ICD-10-PCS; principal; 2018-03-15)
DX: J44.1 Chronic obstructive pulmonary disease with (acute) exacerbation (principal); I42.9 Cardiomyopathy, unspecified; I48.0 Paroxysmal atrial fibrillation; J20.9 Acute bronchitis, unspecified; I25.10 Atherosclerotic heart disease of native coronary artery without angina pectoris; G89.29 Other chronic pain; Z99.81 Dependence on supplemental oxygen; R09.02 Hypoxemia; K59.09 Other constipation; M54.16 Radiculopathy, lumbar region; I27.20 Pulmonary hypertension, unspecified; I50.9 Heart failure, unspecified; I11.0 Hypertensive heart disease with heart failure; K59.00 Constipation, unspecified; I48.2 Chronic atrial fibrillation; J44.0 Chronic obstructive pulmonary disease with (acute) lower respiratory infection; I25.2 Old myocardial infarction; Z79.52 Long term (current) use of systemic steroids; Z79.82 Long term (current) use of aspirin

== ENCOUNTER 2018-03-20 14:41 | Inpatient (IN) | payer OTHER, MEDICAID ==
[2018-03-20 15:01] VITALS: BMI 23.7
[2018-03-20] MEDS ORDERED: Albuterol-Ipratrop 3 mg / 0.5 (3 ml) UD IH PRN (15:01)
[2018-03-20] MEDS ORDERED: oxyCODONE 20 mg ER Tab (oxyCONTIN) PO PRN (15:01)
[2018-03-20] MEDS: MethylPREDNISolone 40 mg Vial IVP SCH (17:43)
[2018-03-20] MEDS: Levalbuterol 0.63 MG/3 ML Inhal Soln UD IH PRN (19:30)
[2018-03-20] MEDS: Budesonide 0.5 mg/2 ml Inhal Susp UD IH SCH (19:30)
[2018-03-20] MEDS: oxyCODONE 10 mg Immediate Release Tab PO PRN (19:59)
[2018-03-20] MEDS: Cefepime 0.5 GM in Sodium Chloride 0.9% 100 ML IVPB SCH (21:26)
[2018-03-20] MEDS ORDERED: Cefepime (Maxipime) 1 g Inj IVPB SCH (22:00)
[2018-03-21] MEDS: oxyCODONE 20 mg ER Tab (oxyCONTIN) PO PRN ×2 (01:02→12:49)
[2018-03-21] MEDS: Levalbuterol 0.63 MG/3 ML Inhal Soln UD IH PRN ×3 (01:37→19:55)
[2018-03-21] MEDS: Cefepime 0.5 GM in Sodium Chloride 0.9% 100 ML IVPB SCH (06:10)
[2018-03-21] MEDS: Enoxaparin 40 mg Syringe SC SCH (06:10)
[2018-03-21] MEDS: MethylPREDNISolone 40 mg Vial IVP SCH ×2 (06:11→17:34)
[2018-03-21] MEDS: Budesonide 0.5 mg/2 ml Inhal Susp UD IH SCH ×2 (07:14→19:55)
[2018-03-21] MEDS: oxyCODONE 10 mg Immediate Release Tab PO PRN ×2 (07:26→17:39)
--- NOTE | 2018-03-21 07:40 | CP.PCM.CON ---
History of Present Illness - History of Present Illness History of Present Illness: Awake, ambulating to bathroom, mild shortness of breath Reason for consultation: Continuity of care in TCU, Cardiac evaluation of rapid ventricular rate Atrial fibrillation, history of chronic Afib, coronary artery disease, congestive heart failure, COPD, myocardial infarction, hypertension. Brief history of present illness: Transferred to TCU for reconditioning. A 57 year old male who came in to the ER due to shortness of breath. History of chronic Afib, post radiofrequency ablation, coronary artery disease, congestive heart failure, COPD, myocardial infarction, non ischemic cardiomyopathy, hypertension and chronic back pain. Admitted for exacerbation of COPD, episode of rapid atrial fibrillation treated with cardizem. Seen and examined by me and Dr. Samuel Review of Systems - Review of Systems All systems: reviewed and no additional remarkable complaints except Review of Systems: from HPI Past Patient History - Infectious Disease Hx of Infectious Diseases: None - Tetanus Immunizations Tetanus Immunization: Unknown - Past Medical History & Family History Past Medical History?: Yes - Past Social History Smoking Status: Former Smoker - CARDIAC Hx Cardiac Disorders: Yes Hx Congestive Heart Failure: Yes Hx Hypertension: Yes - PULMONARY Hx Chronic Obstructive Pulmonary Disease (COPD): Yes (O2 at home) - NEUROLOGICAL Hx Neurological Disorder: No - HEENT Hx HEENT Problems: Yes (CONTACTS,WEARS RX GLASSES AT TIMES,H/O OF NOSEBLEEDS) Other/Comment: nosebleeds - RENAL Hx Chronic Kidney Disease: No - ENDOCRINE/METABOLIC Hx Diabetes Mellitus Type 2: Yes - HEMATOLOGICAL/ONCOLOGICAL Hx Cancer: No - INTEGUMENTARY Other/Comment: tatoo r arm - MUSCULOSKELETAL/RHEUMATOLOGICAL Hx Falls: No - GASTROINTESTINAL Hx Gastrointestinal Disorders: Yes (appendectomy,colon sx,gerd) - GENITOURINARY/GYNECOLOGICAL Hx Reproductive Disorders: No - PSYCHIATRIC Hx Anxiety: Yes Hx Substance Use: No - SURGICAL HISTORY Hx Mastectomy: No - ANESTHESIA Hx Anesthesia: Yes Hx Anesthesia Reactions: No Hx Malignant Hyperthermia: No Meds Allergies/Adverse Reactions: Allergies Allergy/AdvReac Type Severity Reaction Status Date / Time No Known Allergies Allergy Verified 03/15/18 05:56 - Medications Medications: Current Medications Acetaminophen (Tylenol 325mg Tab) 650 mg PO Q4H PRN; Protocol PRN Reason: Fever >100.5 F Albuterol/Ipratropium (Duoneb 3 Mg/0.5 Mg (3 Ml) Ud) 3 ml IH Q3H PRN; Protocol PRN Reason: Shortness of Breath Alprazolam (Xanax) 0.5 mg PO BID [facility] PRN Reason: Protocol Last Admin: 03/20/18 17:49 Dose: 0.5 mg Aspirin (Ecotrin) 81 mg PO 0800 [facility] PRN Reason: Protocol Budesonide (Pulmicort Respules) 0.5 mg IH [id number] [facility]ST[facility] PRN Reason: Protocol Last Admin: 03/21/18 07:14 Dose: 0.5 mg Diltiazem HCl (Cardizem) 30 mg PO Q8 [facility] PRN Reason: Protocol Last Admin: 03/21/18 06:08 Dose: 30 mg Doxycycline Hyclate (Doryx) 100 mg PO Q12 [facility] PRN Reason: Protocol Last Admin: 03/20/18 21:26 Dose: 100 mg Enoxaparin Sodium (Lovenox) 40 mg SC 0600 [facility] PRN Reason: Protocol Last Admin: 03/21/18 06:10 Dose: 40 mg Ferrous Sulfate (Feosol) 324 mg PO 0800,1800 [facility] PRN Reason: Protocol Last Admin: 03/20/18 17:43 Dose: 324 mg Furosemide (Lasix) 40 mg PO 0600 [facility] PRN Reason: Protocol Last Admin: 03/21/18 06:09 Dose: 40 mg Cefepime HCl 0.5 gm/ Sodium (Chloride) 100 mls @ 100 mls/hr IVPB Q8 COUNT INCLUDES [facility] Last Admin: 03/21/18 06:10 Dose: 100 mls/hr Levalbuterol HCl (Xopenex) 0.63 mg IH [id number] PRN; Protocol PRN Reason: Shortness of Breath Last Admin: 03/21/18 07:14 Dose: 0.63 mg Methylprednisolone (Solu-Medrol) 40 mg IVP 0600,1800 ER[facility]ST[facility] PRN Reason: Protocol Last Admin: 03/21/18 06:11 Dose: 40 mg Linaclotide [Linzess (] 145 Mcg) 145 mcg PO DAILY [facility] Oxycodone HCl (Oxycodone Immediate Release Tab) 10 mg PO BID PRN; Protocol PRN Reason: Pain, moderate (4-7) Last Admin: 03/21/18 07:26 Dose: 10 mg Oxycodone HCl (Oxycontin Extended Release Tab) 20 mg PO 0000,1200 PRN; Protocol PRN Reason: Pain, moderate (4-7) Last Admin: 03/21/18 01:02 Dose: 20 mg Polyethylene Glycol (Miralax) 17 gm PO DAILY [facility] PRN Reason: Protocol Potassium Chloride (Klor-Con 10) 10 meq PO 0800 ER[facility]STINA PRN Reason: Protocol Roflumilast (Daliresp) 500 mcg PO DAILY [facility] PRN Reason: Protocol Simethicone (Mylicon Chew Tab) 80 mg PO [facility] PRN; Protocol PRN Reason: GI distress Sotalol HCl (Betapace) 80 mg PO BID COUNT [facility]CLUDES [facility] PRN Reason: Protocol Last Admin: 03/20/18 17:42 Dose: 80 mg Physical Exam - Constitutional Appears: No Acute Distress - Eye Exam Eye Exam: Normal appearance - ENT Exam ENT Exam: Mucous Membranes Moist - Respiratory Exam Respiratory Exam: Decreased Breath Sounds, Rhonchi, NORMAL BREATHING PATTERN - Cardiovascular Exam Cardiovascular Exam: +S1, +S2 - GI/Abdominal Exam GI & Abdominal Exam: Normal Bowel Sounds, Soft - Neurological Exam Neurological exam: Alert, Oriented x3 - Psychiatric Exam Psychiatric exam: Normal Affect - Skin Skin Exam: Dry, Warm Results - Vital Signs Recent Vital Signs: Last Vital Signs Temp 97.6 F 03/20/18 16:00 Pulse 68 03/21/18 06:08 Resp 20 03/20/18 16:00 BP 101/67 03/21/18 06:09 Pulse Ox 94 L 03/20/18 16:00 Assessment & Plan - Assessment and Plan (Free Text) Assessment: Transferred to TCU for reconditioning. A 57 year old male who came in to the ER due to shortness of breath. History of chronic Afib, post radiofrequency ablation, coronary artery disease, congestive heart failure, COPD, myocardial infarction, non ischemic cardiomyopathy,hypertension and chronic back pain. Admitted for exacerbation of COPD, episode of rapid atrial fibrillation treated with cardizem IV then switch to oral. Plan: Transferred to TCU for physical therapy Mild shortness of breath post ambulation Continue nebulizer treatment and Solumedrol Stable heart rate, stable blood pressure Continue IV antibiotics as ordered On ASA 81 mg daily,Lasix 40 mg daily,Solumedrol 40 mg q 12 hours Sotalol 80 mg BID, Cardizem 30 mg TID Continue current treatment Continue current medications Will follow up Plan and treatment discussed with Dr. Samuel Thank you for the opportunity of taking care of Mr. Demetrio Ghotra - Date & Time Date: 03/21/18 Time: 06:50
[2018-03-21] MEDS: Potassium Chloride 10 mEq ER Tab PO SCH (08:08)
[2018-03-21] MEDS ORDERED: Home Med 1 UNIT PO SCH (10:00)
[2018-03-21] MEDS: Linaclotide [Linzess] 145 MCG PO SCH (10:13)
[2018-03-21] MEDS: POLYETHYLENE GLYCOL 3350 17 GM/Dose PACKET PO SCH (10:17)
--- NOTE | 2018-03-21 11:02 | PN ---
Copied To: Jp Lacy MD Attending MD: Jp Lacy MD DATE: 03/21/2018 PULMONARY PROGRESS NOTE SUBJECTIVE: Patient was seen and examined at bedside on Transitional Care Unit. He states his breathing has improved. He is on oxygen by nasal cannula. He continues on nebulizer treatments. PHYSICAL EXAMINATION: VITAL SIGNS: Temperature is 98; pulse 68 and irregular; respirations 20, pulse oximetry is 94% on nasal cannula. HEENT: Head, normocephalic and atraumatic. NECK: Supple. There is no jugular vein distention. CARDIOVASCULAR: S1, S2. No S3, regular. PULMONARY: Diminished breath sounds bilaterally with prolonged expiration and a few end-expiratory wheezes. Moderate airway obstruction. GI: Soft and nontender. No organomegaly. EXTREMITIES: A 1+ pedal edema. SKIN: No acute skin rash. NEUROLOGIC: Limited at the present time. LABORATORY DATA: There are no new labs to review. ASSESSMENT: 1. Severe chronic obstructive pulmonary disease, improving. 2. Atrial fibrillation. 3. Congestive heart failure. 4. Respiratory insufficiency. PLAN: We will continue with current intervention with supplemental oxygen and nebulizer treatments. Steroids are tapered. His overall respiratory status has improved. Jp Lacy MD MTDD
--- NOTE | 2018-03-21 20:59 | HP ---
Copied To: Ross Bowman MD Attending MD: Ross Bowman MD HISTORY OF PRESENT ILLNESS: The patient is a 58-year-old who came in with increasing shortness of breath, productive cough, abdominal discomfort, easy fatigability, also with increasing shortness of breath on minimal walking. PAST MEDICAL HISTORY: Significant for: 1. COPD. 2. Nonischemic cardiomyopathy. 3. History of alcohol abuse. 4. History of drug abuse in the past. 5. History of GI bleed, had endoscopy, colonoscopy, and capsule endoscopy done and was found to be unremarkable. 6. Chronic degenerative disk disease, on narcotics. 7. History of AFib, status post ablation, but had episode of AFib two days ago, was started on verapamil, seems to be under control now. ALLERGIES: NOT ALLERGIC TO ANY MEDICATIONS. MEDICATIONS AT HOME: He is on: 1. Prednisone 15 mg daily. 2. OxyContin 20 mg twice a day. 3. Oxycodone 10 mg twice a day. 4. Spiriva. 5. Sotalol 80 mg twice a day. 6. Simethicone. 7. Daliresp. 8. Potassium 10 mEq daily. 9. MiraLax. 10. Protonix. 11. Singulair 10 mg daily. 12. Linzess 145 daily. 13. Xopenex. 14. Ferrous sulfate. 15. Lovenox. 16. Xanax 0.5 b.i.d. SOCIAL HISTORY: He is , lives with his . He used to smoke up until last year. He used to drink heavy, but quit. REVIEW OF SYSTEMS: Exertional dyspnea and weakness upon walking. He used his home oxygen. PHYSICAL EXAMINATION: GENERAL: He is awake, alert, oriented, able to communicate, just came back from therapy, has shortness of breath. VITAL SIGNS: He is afebrile, pulse 71, respiration 18, blood pressure 103/60. LUNGS: Bilateral fair airflow. No rhonchi or crackles. HEART: S1 and S2 audible. ABDOMEN: Soft, nontender. No rebound. No guarding. NEUROLOGICAL: He is awake, alert, oriented, communicative, ambulatory. EXTREMITIES: Bilateral legs, no edema. ASSESSMENT: 1. Chronic obstructive pulmonary disease exacerbation. 2. Congestive heart failure. 3. Intermittent atrial fibrillation, status post ablation. 4. Chronic anemia. 5. Deconditioning and difficulty walking. PLAN: Currently, the patient is on doxycycline 100 twice a day. He is on Daliresp. He is on Cardizem 30 mg every 8 hours. We will discontinue that and start him on verapamil. Continue Maxipime as per ID recommendation. He is on MiraLax and simethicone. We will continue that. Use analgesics as needed. We will follow up the patient in a.m. Ross Bowman MD
[2018-03-22] MEDS: oxyCODONE 20 mg ER Tab (oxyCONTIN) PO PRN ×2 (00:06→14:10)
[2018-03-22] MEDS: Levalbuterol 0.63 MG/3 ML Inhal Soln UD IH PRN ×4 (01:38→20:00)
[2018-03-22] MEDS: MethylPREDNISolone 40 mg Vial IVP SCH (05:45)
[2018-03-22] MEDS: Enoxaparin 40 mg Syringe SC SCH (05:45)
[2018-03-22] MEDS: Budesonide 0.5 mg/2 ml Inhal Susp UD IH SCH ×2 (07:13→20:01)
--- NOTE | 2018-03-22 07:15 | CP.PCM.PN ---
Subjective - Date & Time of Evaluation Date of Evaluation: 03/22/18 Time of Evaluation: 06:45 - Subjective Subjective: Awake, no distress, complaining of feeling bloated,constipated, Reason for consultation and follow up: Continuity of care in TCU, Cardiac evaluation of rapid ventricular rate Atrial fibrillation, history of chronic Afib, coronary artery disease, congestive heart failure, COPD, myocardial infarction, hypertension. Seen and examined by me and Dr. Resendez Objective - Vital Signs/Intake and Output Vital Signs (last 24 hours): Temp Pulse Resp BP Pulse Ox 98.2 F 100 H 20 103/59 L 98 03/21/18 16:00 03/21/18 17:33 03/21/18 16:00 03/22/18 05:45 03/21/18 16:00 - Medications Medications: Current Medications Acetaminophen (Tylenol 325mg Tab) 650 mg PO Q4H PRN; Protocol PRN Reason: Fever >100.5 F Albuterol/Ipratropium (Duoneb 3 Mg/0.5 Mg (3 Ml) Ud) 3 ml IH Q3H PRN; Protocol PRN Reason: Shortness of Breath Alprazolam (Xanax) 0.5 mg PO BID [facility]INA PRN Reason: Protocol Last Admin: 03/21/18 17:39 Dose: 0.5 mg Aspirin (Ecotrin) 81 mg PO 0800 [facility] PRN Reason: Protocol Last Admin: 03/21/18 08:08 Dose: 81 mg Budesonide (Pulmicort Respules) 0.5 mg IH [id number] [facility] PRN Reason: Protocol Last Admin: 03/21/18 19:55 Dose: 0.5 mg Doxycycline Hyclate (Doryx) 100 mg PO Q12 [facility] PRN Reason: Protocol Last Admin: 03/21/18 21:14 Dose: 100 mg Enoxaparin Sodium (Lovenox) 40 mg SC 0600 ER[facility]STINA PRN Reason: Protocol Last Admin: 03/22/18 05:45 Dose: 40 mg Ferrous Sulfate (Feosol) 324 mg PO 0800,1800 [facility] PRN Reason: Protocol Last Admin: 03/21/18 17:34 Dose: 324 mg Furosemide (Lasix) 40 mg PO 0600 ER[facility]STINA PRN Reason: Protocol Last Admin: 03/22/18 05:45 Dose: 40 mg Levalbuterol HCl (Xopenex) 0.63 mg IH [id number] PRN; Protocol PRN Reason: Shortness of Breath Last Admin: 03/22/18 01:38 Dose: 0.63 mg Methylprednisolone (Solu-Medrol) 40 mg IVP 0600,1800 ER[facility]STINA PRN Reason: Protocol Last Admin: 03/22/18 05:45 Dose: 40 mg Linaclotide [Linzess (] 145 Mcg) 145 mcg PO DAILY [facility] Last Admin: 03/21/18 10:13 Dose: 145 mcg Oxycodone HCl (Oxycodone Immediate Release Tab) 10 mg PO BID PRN; Protocol PRN Reason: Pain, moderate (4-7) Last Admin: 03/21/18 17:39 Dose: 10 mg Oxycodone HCl (Oxycontin Extended Release Tab) 20 mg PO 0000,1200 PRN; Protocol PRN Reason: Pain, moderate (4-7) Last Admin: 03/22/18 00:06 Dose: 20 mg Polyethylene Glycol (Miralax) 17 gm PO DAILY [facility] PRN Reason: Protocol Last Admin: 03/21/18 10:17 Dose: 17 gm Potassium Chloride (Klor-Con 10) 10 meq PO 0800 ER[facility]STINA PRN Reason: Protocol Last Admin: 03/21/18 08:08 Dose: 10 meq Roflumilast (Daliresp) 500 mcg PO DAILY [facility] PRN Reason: Protocol Last Admin: 03/21/18 10:12 Dose: 500 mcg Simethicone (Mylicon Chew Tab) 80 mg PO [facility] PRN; Protocol PRN Reason: GI distress Sotalol HCl (Betapace) 40 mg PO BID [facility] PRN Reason: Protocol Last Admin: 03/21/18 17:33 Dose: 40 mg Verapamil HCl (Calan Sr Tab) 120 mg PO DAILY [facility] - Constitutional Appears: No Acute Distress - Eye Exam Eye Exam: Normal appearance - ENT Exam ENT Exam: Mucous Membranes Moist - Respiratory Exam Respiratory Exam: Decreased Breath Sounds, Rhonchi, NORMAL BREATHING PATTERN - Cardiovascular Exam Cardiovascular Exam: +S1, +S2 - GI/Abdominal Exam GI & Abdominal Exam: Soft, Normal Bowel Sounds Additional comments: denies nausea, feeling bloated/constipated non tender,soft - Extremities Exam Extremities Exam: Normal Capillary Refill - Neurological Exam Neurological Exam: Alert, Awake, Oriented x3 - Psychiatric Exam Psychiatric exam: Normal Affect - Skin Skin Exam: Intact, Warm Assessment and Plan - Assessment and Plan (Free Text) Assessment: Transferred to TCU for reconditioning. A 57 year old male who came in to the ER due to shortness of breath. History of chronic Afib, post radiofrequency ablation, coronary artery disease, congestive heart failure, COPD, myocardial infarction, non ischemic cardiomyopathy,hypertension and chronic back pain. Admitted for exacerbation of COPD, episode of rapid atrial fibrillation treated with cardizem IV then switch to oral. Plan: Complaints of being bloated, constipated, had bowel movement but small amount. wanted medicine to have a good bowel movement and cleanse. Denies shortness of breath Stable heart rate, stable blood pressure Continue IV antibiotics as ordered On ASA 81 mg daily,Lasix 40 mg daily,Solumedrol 40 mg q 12 hours Sotalol 80 mg BID, Calan Sr 120 mg daily Will order Mg Citrate half bottle for constipation x 1 dose Continue current treatment Continue current medications Will follow up Plan and treatment discussed with
[2018-03-22] MEDS: oxyCODONE 10 mg Immediate Release Tab PO PRN (08:32)
[2018-03-22] MEDS: Potassium Chloride 10 mEq ER Tab PO SCH (08:32)
[2018-03-22] MEDS ORDERED: Magnesium Citrate Oral SOL (300 ml) PO ONE (08:37)
--- NOTE | 2018-03-22 09:05 | PN ---
Copied To: Bob Love MD Attending MD: Bob Love MD DATE: 03/22/2018 PULMONARY PROGRESS NOTE SUBJECTIVE: The patient is in bed in the Transitional Care Unit feeling well. His general status is improved. He still has air hunger when moving around. He continues on nasal oxygen, nebulizer treatments and his other medications. He remains on diuretics for congestive heart failure. PHYSICAL EXAMINATION: VITAL SIGNS: Remain stable. He is afebrile, oxygen sat 96% on nasal cannula, respiratory rate 18, pulse of 68. HEENT: Normocephalic, atraumatic. NECK: Supple. No JVD. No lymphadenopathy. No bruit. CARDIOVASCULAR: Regular rhythm. S1, S2. No gallop is heard at this time. LUNGS: A global decrease in breath sounds with prolonged expiration. There is no wheezing noted today. General status is somewhat improved. ABDOMEN: Soft. Bowel sounds normoactive without mass, guarding, rebound or organomegaly. EXTREMITIES: Reveal trace edema. SKIN: No rash or excoriation. NEUROLOGICAL: Awake and alert, oriented. LABORATORY STUDIES: No new laboratory studies are available. ASSESSMENT: 1. Severe chronic obstructive pulmonary disease, improving. 2. Bronchospasm considerably better. 3. Pulmonary vascular congestion. 4. Respiratory insufficiency. PLAN: Decrease IV corticosteroids. Continue inhaled corticosteroids. Continue other nebulizer treatments. We will monitor the patient in the TCU and decide on further decrease in steroid dose. Thank you for the opportunity to evaluate Mr. Cano. Bob Love MD
[2018-03-22] MEDS: Linaclotide [Linzess] 145 MCG PO SCH (09:55)
[2018-03-22] MEDS: POLYETHYLENE GLYCOL 3350 17 GM/Dose PACKET PO SCH (09:56)
[2018-03-22] MEDS: Simethicone 80 mg Chewtab PO PRN (09:57)
[2018-03-22] MEDS ORDERED: Verapamil 180 mg ER Tab PO SCH (10:00)
[2018-03-22] MEDS ORDERED: MethylPREDNISolone 40 mg Vial IV SCH (10:00)
[2018-03-22] MEDS: Verapamil 120 mg ER Tab PO SCH (14:48)
--- NOTE | 2018-03-22 15:33 | PN ---
Copied To: Ross Bowman MD Attending MD: Ross Bowman MD DATE: 03/22/2018 SUBJECTIVE: The patient is a 58-year-old, seen and examined, doing well. No nausea or vomiting. No diarrhea. Eating and tolerating. Gets short of breath when walks small distance. Seen in gym, getting stationary bike exercise. Seems to be doing fair. PHYSICAL EXAMINATION: GENERAL: He is awake, alert, oriented, communicative, not in any distress. VITAL SIGNS: He is afebrile, pulse 100, respiration 18, blood pressure 128/79. LUNGS: Bilateral fair airflow. No rhonchi or crackle. Decreased at bases posteriorly. HEART: S1 and S2 audible. Regular rate and rhythm. ABDOMEN: Soft, nontender. No rebound, no guarding. NEUROLOGIC: He is awake, alert, oriented, communicative, ambulatory. EXTREMITIES: Bilateral legs, no edema. ASSESSMENT AND PLAN: 1. Chronic obstructive pulmonary disease exacerbation. 2. Bilateral basal atelectasis. 3. Nonischemic cardiomyopathy. 4. History of hypertension, currently hypotensive. 5. Status post ablation, had brief period of atrial fibrillation, has been started on Eliquis and currently he is on sotalol mg twice a day and verapamil. We will continue that. He is on doxycycline and he is getting Lovenox also. We will continue him on MiraLax. He is on Percocet. We will cut down his steroids to p.o. prednisone. We will follow up the patient. Ross Bowman MD
[2018-03-23] MEDS: oxyCODONE 20 mg ER Tab (oxyCONTIN) PO PRN ×3 (00:34→23:55)
[2018-03-23] MEDS: Enoxaparin 40 mg Syringe SC SCH (05:34)
[2018-03-23] MEDS: Levalbuterol 0.63 MG/3 ML Inhal Soln UD IH PRN ×2 (07:04→19:33)
[2018-03-23] MEDS: Budesonide 0.5 mg/2 ml Inhal Susp UD IH SCH ×2 (07:05→19:33)
--- NOTE | 2018-03-23 07:31 | CP.PCM.PN ---
Subjective - Date & Time of Evaluation Date of Evaluation: 03/23/18 Time of Evaluation: 06:25 - Subjective Subjective: Easily awaken, no distress, lying in bed Reason for consultation and follow up: Continuity of care in TCU, Cardiac evaluation of rapid ventricular rate Atrial fibrillation, history of chronic Afib, coronary artery disease, congestive heart failure, COPD, myocardial infarction, hypertension. Seen and examined by me and Dr. Resendez Objective - Vital Signs/Intake and Output Vital Signs (last 24 hours): Temp Pulse Resp BP Pulse Ox 97.4 F L 108 H 20 100/62 95 03/22/18 16:00 03/22/18 16:00 03/22/18 16:00 03/23/18 05:33 03/22/18 16:00 - Medications Medications: Current Medications Acetaminophen (Tylenol 325mg Tab) 650 mg PO Q4H PRN; Protocol PRN Reason: Fever >100.5 F Albuterol/Ipratropium (Duoneb 3 Mg/0.5 Mg (3 Ml) Ud) 3 ml IH Q3H PRN; Protocol PRN Reason: Shortness of Breath Alprazolam (Xanax) 0.5 mg PO BID [facility] PRN Reason: Protocol Last Admin: 03/23/18 00:34 Dose: 0.5 mg Aspirin (Ecotrin) 81 mg PO 0800 [facility] PRN Reason: Protocol Last Admin: 03/22/18 08:32 Dose: 81 mg Budesonide (Pulmicort Respules) 0.5 mg IH [id number] [facility] PRN Reason: Protocol Last Admin: 03/23/18 07:05 Dose: 0.5 mg Doxycycline Hyclate (Doryx) 100 mg PO Q12 [facility] PRN Reason: Protocol Last Admin: 03/22/18 21:17 Dose: 100 mg Enoxaparin Sodium (Lovenox) 40 mg SC 0600 [facility] PRN Reason: Protocol Last Admin: 03/23/18 05:34 Dose: 40 mg Ferrous Sulfate (Feosol) 324 mg PO 0800,1800 [facility] PRN Reason: Protocol Last Admin: 03/22/18 17:49 Dose: 324 mg Furosemide (Lasix) 40 mg PO 0600 [facility] PRN Reason: Protocol Last Admin: 03/23/18 05:33 Dose: 40 mg Levalbuterol HCl (Xopenex) 0.63 mg IH [id number] PRN; Protocol PRN Reason: Shortness of Breath Last Admin: 03/23/18 07:04 Dose: 0.63 mg Linaclotide [Linzess (] 145 Mcg) 145 mcg PO DAILY [facility] Last Admin: 03/22/18 09:55 Dose: 145 mcg Oxycodone HCl (Oxycodone Immediate Release Tab) 10 mg PO BID PRN; Protocol PRN Reason: Pain, moderate (4-7) Last Admin: 03/22/18 08:32 Dose: 10 mg Oxycodone HCl (Oxycontin Extended Release Tab) 20 mg PO 0000,1200 PRN; Protocol PRN Reason: Pain, moderate (4-7) Last Admin: 03/23/18 00:34 Dose: 20 mg Polyethylene Glycol (Miralax) 17 gm PO DAILY [facility] PRN Reason: Protocol Last Admin: 03/22/18 09:56 Dose: 17 gm Potassium Chloride (Klor-Con 10) 10 meq PO 0800 ERNESTINA PRN Reason: Protocol Last Admin: 03/22/18 08:32 Dose: 10 meq Prednisone (Prednisone Tab) 20 mg PO BID [facility] Roflumilast (Daliresp) 500 mcg PO DAILY [facility] PRN Reason: Protocol Last Admin: 03/22/18 09:55 Dose: 500 mcg Simethicone (Mylicon Chew Tab) 80 mg PO [facility] PRN; Protocol PRN Reason: GI distress Last Admin: 03/22/18 09:57 Dose: 80 mg Sotalol HCl (Betapace) 40 mg PO BID [facility] PRN Reason: Protocol Last Admin: 03/22/18 09:54 Dose: 40 mg Verapamil HCl (Calan Sr Tab) 120 mg PO DAILY [facility] Last Admin: 03/22/18 14:48 Dose: 120 mg - Constitutional Appears: No Acute Distress - Eye Exam Eye Exam: Normal appearance - ENT Exam ENT Exam: Mucous Membranes Moist - Respiratory Exam Respiratory Exam: Decreased Breath Sounds, Rhonchi, NORMAL BREATHING PATTERN - Cardiovascular Exam Cardiovascular Exam: +S1, +S2 - GI/Abdominal Exam GI & Abdominal Exam: Soft, Normal Bowel Sounds - Extremities Exam Extremities Exam: Normal Capillary Refill - Neurological Exam Neurological Exam: Alert, Awake, Oriented x3 - Psychiatric Exam Psychiatric exam: Normal Affect - Skin Skin Exam: Intact, Warm Assessment and Plan - Assessment and Plan (Free Text) Assessment: Transferred to TCU for reconditioning. A 57 year old male who came in to the ER due to shortness of breath. History of chronic Afib, post radiofrequency ablation, coronary artery disease, congestive heart failure, COPD, myocardial infarction, non ischemic cardiomyopathy,hypertension and chronic back pain. Admitted for exacerbation of COPD, episode of rapid atrial fibrillation treated with cardizem IV then switch to oral. Plan: Denies shortness of breath Stable heart rate, stable blood pressure Continue IV antibiotics as ordered On ASA 81 mg daily,Lasix 40 mg daily,Solumedrol 40 mg q 12 hours Sotalol 40 mg BID, Calan Sr 120 mg daily Physical therapy in progress Continue current treatment Continue current medications Will follow up Plan and treatment discussed with
[2018-03-23] MEDS: Potassium Chloride 10 mEq ER Tab PO SCH (08:02)
--- NOTE | 2018-03-23 09:58 | PN ---
Copied To: Jp Lacy MD Attending MD: Jp Lacy MD DATE: 03/23/2018 PULMONARY PROGRESS NOTE SUBJECTIVE: The patient was seen and examined on Transitional Care Unit. He appears to be very weak. He did not sleep well. He is complaining of shortness of breath on minimal exertion. PHYSICAL EXAMINATION: VITAL SIGNS: His temperature is 97.4, pulse 108 and irregular, respirations 20, pulse oximetry is 95 on nasal cannula, blood pressure is 100/62. HEENT: Head normocephalic and atraumatic. NECK: Supple with no jugular vein distention. CARDIOVASCULAR: S1, S2. No S3, irregular. PULMONARY: Diminished breath sounds at both bases with a few rhonchi. No wheezing. GI: Soft, nontender. No organomegaly. EXTREMITIES: A 1+ pedal edema. No cyanosis. NEUROLOGIC: Limited at the present time. LABORATORY DATA: There are no new labs to review. ASSESSMENT: 1. Severe chronic obstructive pulmonary disease, stable. 2. Bronchospasm, improving. 3. Pulmonary vascular congestion. 4. Atrial fibrillation. PLAN: Agree with Dr. Love's note from yesterday and plan to decrease intravenous steroids. Actually, the steroids were switched to oral. Continue nebulizer treatment and continue the intervention as per Cardiology. Jp Lacy MD
[2018-03-23] MEDS: oxyCODONE 10 mg Immediate Release Tab PO PRN ×2 (10:02→21:27)
[2018-03-23] MEDS: POLYETHYLENE GLYCOL 3350 17 GM/Dose PACKET PO SCH ×2 (10:03→10:09)
[2018-03-23] MEDS: Linaclotide [Linzess] 145 MCG PO SCH (10:04)
[2018-03-23] MEDS: Verapamil 120 mg ER Tab PO SCH (10:04)
[2018-03-23] MEDS: Simethicone 80 mg Chewtab PO PRN (14:06)
--- NOTE | 2018-03-23 15:38 | CP.PCM.CON ---
<Annabelle Brumfield - Last Filed: 03/23/18 15:35> History of Present Illness - History of Present Illness History of Present Illness: Podiatry Consult Note: Dr. Wilcox 58 year old male with PMHx of COPD, paroxysmal atrial fibrillation, CHF, CAD, [place] , hypertension, and chronic back pain was seen and evaluated at bedside for elongated, dystrophic nails. Patient reports that his big toe nails are painful. Denies of recent F/N/V/C/SOB/CP/headache. Reports that every now and then he feels some numbness and tingling in his feet. Denies of any other pedal complains at this time. PMHx: COPD, paroxysmal atrial fibrillation, CHF, CAD, [place], hypertension, and chronic back pain PSHx: colon surgery x2 as a 1 year old after swallowing a coin (appendectomy done at that time) Allergies: N.K.D.A SHx: Former, EtOH or illicit drug usage Review of Systems - Constitutional Constitutional: As Per HPI Past Patient History - Infectious Disease Hx of Infectious Diseases: None - Tetanus Immunizations Tetanus Immunization: Unknown - Past Medical History & Family History Past Medical History?: Yes - Past Social History Smoking Status: Former Smoker - CARDIAC Hx Cardiac Disorders: Yes (Afib (S/P ablation)) Hx Congestive Heart Failure: Yes Hx Hypertension: Yes - PULMONARY Hx Chronic Obstructive Pulmonary Disease (COPD): Yes (+Home O2) - NEUROLOGICAL Hx Neurological Disorder: No - HEENT Hx HEENT Problems: Yes (CONTACTS,WEARS RX GLASSES AT TIMES,H/O OF NOSEBLEEDS) Other/Comment: nosebleeds - RENAL Hx Chronic Kidney Disease: No - ENDOCRINE/METABOLIC Hx Diabetes Mellitus Type 2: Yes - HEMATOLOGICAL/ONCOLOGICAL Hx Cancer: No - INTEGUMENTARY Other/Comment: tatoo r arm - MUSCULOSKELETAL/RHEUMATOLOGICAL Hx Falls: No - GASTROINTESTINAL Hx Gastrointestinal Disorders: Yes (appendectomy,colon sx,gerd) - GENITOURINARY/GYNECOLOGICAL Hx Reproductive Disorders: No - PSYCHIATRIC Hx Anxiety: Yes Hx Substance Use: No - SURGICAL HISTORY Hx Mastectomy: No - ANESTHESIA Hx Anesthesia: Yes Hx Anesthesia Reactions: No Hx Malignant Hyperthermia: No Meds Allergies/Adverse Reactions: Allergies Allergy/AdvReac Type Severity Reaction Status Date / Time No Known Allergies Allergy Verified 03/15/18 05:56 - Medications Medications: Current Medications Acetaminophen (Tylenol 325mg Tab) 650 mg PO Q4H PRN; Protocol PRN Reason: Fever >100.5 F Albuterol/Ipratropium (Duoneb 3 Mg/0.5 Mg (3 Ml) Ud) 3 ml IH Q3H PRN; Protocol PRN Reason: Shortness of Breath Alprazolam (Xanax) 0.5 mg PO BID [facility] PRN Reason: Protocol Last Admin: 03/23/18 10:03 Dose: 0.5 mg Aspirin (Ecotrin) 81 mg PO 0800 [facility] PRN Reason: Protocol Last Admin: 03/23/18 08:02 Dose: 81 mg Budesonide (Pulmicort Respules) 0.5 mg IH [id number] [facility] PRN Reason: Protocol Last Admin: 03/23/18 07:05 Dose: 0.5 mg Doxycycline Hyclate (Doryx) 100 mg PO Q12 [facility] PRN Reason: Protocol Last Admin: 03/23/18 10:04 Dose: 100 mg Enoxaparin Sodium (Lovenox) 40 mg SC 0600 [facility] PRN Reason: Protocol Last Admin: 03/23/18 05:34 Dose: 40 mg Ferrous Sulfate (Feosol) 324 mg PO 0800,1800 [facility] PRN Reason: Protocol Last Admin: 03/23/18 08:02 Dose: 324 mg Furosemide (Lasix) 40 mg PO 0600 [facility] PRN Reason: Protocol Last Admin: 03/23/18 05:33 Dose: 40 mg Levalbuterol HCl (Xopenex) 0.63 mg IH [id number] PRN; Protocol PRN Reason: Shortness of Breath Last Admin: 03/23/18 07:04 Dose: 0.63 mg Non-Formulary Medication (Linaclotide [Linzess]) 145 mcg PO 0630 [facility] Oxycodone HCl (Oxycodone Immediate Release Tab) 10 mg PO BID PRN; Protocol PRN Reason: Pain, moderate (4-7) Last Admin: 03/23/18 10:02 Dose: 10 mg Oxycodone HCl (Oxycontin Extended Release Tab) 20 mg PO 0000,1200 PRN; Protocol PRN Reason: Pain, moderate (4-7) Last Admin: 03/23/18 14:06 Dose: 20 mg Polyethylene Glycol (Miralax) 17 gm PO DAILY [facility] PRN Reason: Protocol Last Admin: 03/23/18 10:09 Dose: Not Given Potassium Chloride (Klor-Con 10) 10 meq PO 0800 [facility] PRN Reason: Protocol Last Admin: 03/23/18 08:02 Dose: 10 meq Prednisone (Prednisone Tab) 20 mg PO BID [facility] Last Admin: 03/23/18 10:03 Dose: 20 mg Roflumilast (Daliresp) 500 mcg PO DAILY [facility] PRN Reason: Protocol Last Admin: 03/23/18 10:04 Dose: 500 mcg Simethicone (Mylicon Chew Tab) 80 mg PO [facility] PRN; Protocol PRN Reason: GI distress Last Admin: 03/23/18 14:06 Dose: 80 mg Sotalol HCl (Betapace) 40 mg PO BID [facility] PRN Reason: Protocol Last Admin: 03/23/18 10:05 Dose: Not Given Verapamil HCl (Calan Sr Tab) 120 mg PO DAILY [facility] Last Admin: 03/23/18 10:04 Dose: Not Given Physical Exam - Constitutional Appears: Well, Non-toxic, No Acute Distress - Extremities Exam Additional comments: Bilateral LE exam VASC: DP/PT pulses are palpable 2/4, Cap refill time: < 3 sec to all digits, Temp gradient: warm to cool from proximal to distal, no pitting or non-pitting edema ntoed DERM: Discolored, hypertrophic, elongated nails x 10, no open lesions, no clinical suspicion of active infection NEURO: Protective sensation grossly intact ORTHO: MMT: 5/5 in all 4 directions; AROM and PROM WNL on b/l LE at the ankle AJ and MTPJ - Neurological Exam Neurological exam: Alert, Oriented x3 - Psychiatric Exam Psychiatric exam: Normal Affect, Normal Mood Results - Vital Signs Recent Vital Signs: Last Vital Signs Temp 97.4 F L 03/22/18 16:00 Pulse 102 H 03/23/18 10:04 Resp 20 03/22/18 16:00 BP 95/63 L 03/23/18 10:05 Pulse Ox 95 03/22/18 16:00 Assessment & Plan - Assessment and Plan (Free Text) Assessment: 58 year old male evaluated for onychomycosis Plan: Patient seen and evaluated Discussed with attending Dr. Wilcox Labs, vitals and charts reviewed Aseptic debridement of nails using sterile clippers Tolerated the procedure well with no reported incidents Stable from podiatry standpoint - re-consult as needed Educated to follow up with Dr. Wilcox as an outpatient Thank you for the podiatry consult and allowing to take part in patient care - Date & Time Date: 03/23/18 Time: 15:47 <Alfredo Wilcox - Last Filed: 03/24/18 08:12> Meds - Medications Medications: Current Medications Acetaminophen (Tylenol 325mg Tab) 650 mg PO Q4H PRN; Protocol PRN Reason: Fever >100.5 F Albuterol/Ipratropium (Duoneb 3 Mg/0.5 Mg (3 Ml) Ud) 3 ml IH Q3H PRN; Protocol PRN Reason: Shortness of Breath Alprazolam (Xanax) 0.5 mg PO BID [facility] PRN Reason: Protocol Last Admin: 03/23/18 17:34 Dose: 0.5 mg Aspirin (Ecotrin) 81 mg PO 0800 [facility] PRN Reason: Protocol Last Admin: 03/23/18 08:02 Dose: 81 mg Budesonide (Pulmicort Respules) 0.5 mg IH [id number] [facility] PRN Reason: Protocol Last Admin: 03/24/18 07:20 Dose: 0.5 mg Doxycycline Hyclate (Doryx) 100 mg PO Q12 [facility] PRN Reason: Protocol Last Admin: 03/23/18 21:20 Dose: 100 mg Enoxaparin Sodium (Lovenox) 40 mg SC 0600 [facility] PRN Reason: Protocol Last Admin: 03/24/18 05:29 Dose: 40 mg Ferrous Sulfate (Feosol) 324 mg PO 0800,1800 [facility] PRN Reason: Protocol Last Admin: 03/23/18 17:31 Dose: 324 mg Furosemide (Lasix) 40 mg PO 0600 [facility] PRN Reason: Protocol Last Admin: 03/24/18 05:22 Dose: 40 mg Levalbuterol HCl (Xopenex) 0.63 mg IH [id number] PRN; Protocol PRN Reason: Shortness of Breath Last Admin: 03/24/18 07:21 Dose: 0.63 mg Non-Formulary Medication (Linaclotide [Linzess]) 145 mcg PO 0630 [facility] Last Admin: 03/24/18 05:30 Dose: 145 mcg Oxycodone HCl (Oxycodone Immediate Release Tab) 10 mg PO BID PRN; Protocol PRN Reason: Pain, moderate (4-7) Last Admin: 03/23/18 21:27 Dose: 10 mg Oxycodone HCl (Oxycontin Extended Release Tab) 20 mg PO 0000,1200 PRN; Protocol PRN Reason: Pain, moderate (4-7) Last Admin: 03/23/18 23:55 Dose: 20 mg Polyethylene Glycol (Miralax) 17 gm PO DAILY [facility] PRN Reason: Protocol Last Admin: 03/23/18 10:09 Dose: Not Given Potassium Chloride (Klor-Con 10) 10 meq PO 0800 [facility] PRN Reason: Protocol Last Admin: 03/23/18 08:02 Dose: 10 meq Prednisone (Prednisone Tab) 20 mg PO 0800,1800 [facility] Last Admin: 03/23/18 18:52 Dose: Not Given Roflumilast (Daliresp) 500 mcg PO DAILY [facility] PRN Reason: Protocol Last Admin: 03/23/18 10:04 Dose: 500 mcg Simethicone (Mylicon Chew Tab) 80 mg PO [facility] PRN; Protocol PRN Reason: GI distress Last Admin: 03/23/18 14:06 Dose: 80 mg Sotalol HCl (Betapace) 40 mg PO BID [facility] PRN Reason: Protocol Last Admin: 03/23/18 17:30 Dose: 40 mg Verapamil HCl (Calan Sr Tab) 180 mg PO DAILY [facility] Results - Vital Signs Recent Vital Signs: Last Vital Signs Temp 98.8 F 03/23/18 16:00 Pulse 100 H 03/23/18 17:30 Resp 20 03/23/18 16:00 BP 110/61 03/24/18 05:22 Pulse Ox 96 03/23/18 17:11 - Labs Result Diagrams: 03/24/18 07:00 03/24/18 07:00 Labs: Laboratory Results - last 24 hr 03/24/18 03/24/18 07:00 07:00 WBC 14.3 H D RBC 5.26 Hgb 13.8 L Hct 41.9 L MCV 79.7 L MCH 26.2 MCHC 32.9 RDW 16.7 H Plt Count 199 MPV 9.2 Gran % 92.1 H Lymph % (Auto) 4.5 L Pierce % (Auto) 2.7 Eos % (Auto) 0.5 L Baso % (Auto) 0.2 Gran # 13.19 H Lymph # (Auto) 0.7 L Pierce # (Auto) 0.4 Eos # (Auto) 0.1 Baso # (Auto) 0.03 Sodium 138 Potassium 4.5 Chloride 93 L Carbon Dioxide 34 H Anion Gap 16 BUN 19 Creatinine 0.5 L Est GFR ( Amer) > 60 Est GFR (Non-Af Amer) > 60 Random Glucose 79 Calcium 9.7 Total Bilirubin 0.3 AST 65 H D ALT 122 H Alkaline Phosphatase 78 Total Protein 6.6 Albumin 4.1 Globulin 2.6 Albumin/Globulin Ratio 1.6 Attending/Attestation - Attestation I have personally seen and examined this patient.: Yes I have fully participated in the care of the patient.: Yes I have reviewed all pertinent clinical information: Yes
--- NOTE | 2018-03-23 19:21 | PN ---
Copied To: Ross Bowman MD Attending MD: Ross Bowman MD DATE: 03/23/2018 SUBJECTIVE: Patient is 58-year-old, seen and examined, lying in bed, complains of having palpitation even at rest. No nausea or vomiting, still has constipation. PHYSICAL EXAMINATION: VITAL SIGNS: He is afebrile, pulse 100, respiration 20, blood pressure 113/67. LUNGS: Bilateral good airflow. No rhonchi or crackle. HEART: S1 and S2 audible. ABDOMEN: Soft, nontender. No rebound. No guarding. NEUROLOGICAL: He is awake, alert, oriented, communicative. LABORATORY EXAMINATION: He has no lab available today. ASSESSMENT: 1. Chronic obstructive pulmonary disease exacerbation. 2. Congestive heart failure exacerbation. 3. Nonischemic cardiomyopathy. 4. Brief period of atrial fibrillation. 5. Chronic anemia. 6. Chronic constipation. 7. Chronic back pain, long-term on narcotics. PLAN: At this point, I will increase his verapamil to 180 since his blood pressure is running fine. We will continue him on sotalol 40 mg twice a day. We will reduce the dose of sotalol, continue him on verapamil, continue him on doxycycline. I will order one chemistry for the morning to monitor his electrolyte. We will follow up the patient in a.m. Ross Bowman MD
[2018-03-24] MEDS: Enoxaparin 40 mg Syringe SC SCH (05:29)
[2018-03-24] MEDS: Non Formulary Medication (Linaclotide [Linzess] 145 MCG) PO SCH (05:30)
[2018-03-24 07:19] LABS: BASO # 0.03 K/mm3 (0.0-2.0); BASO % 0.2 % (0.0-3.0); EOS # 0.1 (0.0-0.7); EOS % 0.5 % (1.5-5.0); GRAN # 13.19 (1.4-6.5); GRAN % 92.1 % (50.0-68.0); HEMOGLOBIN 13.8 g/dL (14.0-18.0); LYMPH # 0.7 (1.2-3.4); LYMPH % 4.5 % (22.0-35.0); MEAN CELL VOLUME 79.7 fl (80.0-105.0); MEAN CORPUSCULAR HEMOGLOBIN 26.2 pg (25.0-35.0); MEAN CORPUSCULAR HGB CONC 32.9 g/dl (31.0-37.0); MEAN PLATELET VOLUME 9.2 fl (7.0-11.0); MONO # 0.4 (0.1-0.6); MONO % 2.7 % (1.0-6.0); PLATELET COUNT 199 10^3/uL (120.0-450.0); RBC 5.26 10^6/uL (3.5-6.1); RED CELL DISTRIBUTION WIDTH 16.7 % (11.5-14.5); WHITE BLOOD COUNT 14.3 10^3/ul (4.5-11.0)
[2018-03-24] MEDS: Budesonide 0.5 mg/2 ml Inhal Susp UD IH SCH ×2 (07:20→19:57)
[2018-03-24] MEDS: Levalbuterol 0.63 MG/3 ML Inhal Soln UD IH PRN ×3 (07:21→19:57)
--- NOTE | 2018-03-24 07:32 | CP.PCM.PN ---
Subjective - Date & Time of Evaluation Date of Evaluation: 03/24/18 Time of Evaluation: 06:55 - Subjective Subjective: awake,mild shortness of breath, sitting side of bed Reason for consultation and follow up: Continuity of care in TCU, Cardiac evaluation of rapid ventricular rate Atrial fibrillation, history of chronic Afib, coronary artery disease, congestive heart failure, COPD, myocardial infarction, hypertension. Seen and examined by me and Dr. Resendez Objective - Vital Signs/Intake and Output Vital Signs (last 24 hours): Temp Pulse Resp BP Pulse Ox 98.8 F 100 H 20 110/61 96 03/23/18 16:00 03/23/18 17:30 03/23/18 16:00 03/24/18 05:22 03/23/18 17:11 - Medications Medications: Current Medications Acetaminophen (Tylenol 325mg Tab) 650 mg PO Q4H PRN; Protocol PRN Reason: Fever >100.5 F Albuterol/Ipratropium (Duoneb 3 Mg/0.5 Mg (3 Ml) Ud) 3 ml IH Q3H PRN; Protocol PRN Reason: Shortness of Breath Last Admin: 03/24/18 07:20 Dose: 3 ml Alprazolam (Xanax) 0.5 mg PO BID [facility] PRN Reason: Protocol Last Admin: 03/23/18 17:34 Dose: 0.5 mg Aspirin (Ecotrin) 81 mg PO 0800 [facility] PRN Reason: Protocol Last Admin: 03/23/18 08:02 Dose: 81 mg Budesonide (Pulmicort Respules) 0.5 mg IH [id number] [facility] PRN Reason: Protocol Last Admin: 03/24/18 07:20 Dose: 0.5 mg Doxycycline Hyclate (Doryx) 100 mg PO Q12 [facility] PRN Reason: Protocol Last Admin: 03/23/18 21:20 Dose: 100 mg Enoxaparin Sodium (Lovenox) 40 mg SC 0600 [facility] PRN Reason: Protocol Last Admin: 03/24/18 05:29 Dose: 40 mg Ferrous Sulfate (Feosol) 324 mg PO 0800,1800 [facility] PRN Reason: Protocol Last Admin: 03/23/18 17:31 Dose: 324 mg Furosemide (Lasix) 40 mg PO 0600 [facility] PRN Reason: Protocol Last Admin: 03/24/18 05:22 Dose: 40 mg Levalbuterol HCl (Xopenex) 0.63 mg IH [id number] PRN; Protocol PRN Reason: Shortness of Breath Last Admin: 03/24/18 07:21 Dose: 0.63 mg Non-Formulary Medication (Linaclotide [Linzess]) 145 mcg PO 0630 [facility] Last Admin: 03/24/18 05:30 Dose: 145 mcg Oxycodone HCl (Oxycodone Immediate Release Tab) 10 mg PO BID PRN; Protocol PRN Reason: Pain, moderate (4-7) Last Admin: 03/23/18 21:27 Dose: 10 mg Oxycodone HCl (Oxycontin Extended Release Tab) 20 mg PO 0000,1200 PRN; Protocol PRN Reason: Pain, moderate (4-7) Last Admin: 03/23/18 23:55 Dose: 20 mg Polyethylene Glycol (Miralax) 17 gm PO DAILY [facility] PRN Reason: Protocol Last Admin: 03/23/18 10:09 Dose: Not Given Potassium Chloride (Klor-Con 10) 10 meq PO 0800 [facility] PRN Reason: Protocol Last Admin: 03/23/18 08:02 Dose: 10 meq Prednisone (Prednisone Tab) 20 mg PO 0800,1800 [facility] Last Admin: 03/23/18 18:52 Dose: Not Given Roflumilast (Daliresp) 500 mcg PO DAILY [facility] PRN Reason: Protocol Last Admin: 03/23/18 10:04 Dose: 500 mcg Simethicone (Mylicon Chew Tab) 80 mg PO [facility] PRN; Protocol PRN Reason: GI distress Last Admin: 03/23/18 14:06 Dose: 80 mg Sotalol HCl (Betapace) 40 mg PO BID [facility] PRN Reason: Protocol Last Admin: 03/23/18 17:30 Dose: 40 mg Verapamil HCl (Calan Sr Tab) 180 mg PO DAILY [facility] - Labs Labs: 03/24/18 07:00 - Constitutional Appears: No Acute Distress - Eye Exam Eye Exam: Normal appearance - ENT Exam ENT Exam: Mucous Membranes Moist - Respiratory Exam Respiratory Exam: Decreased Breath Sounds, Rhonchi, NORMAL BREATHING PATTERN - Cardiovascular Exam Cardiovascular Exam: +S1, +S2 - GI/Abdominal Exam GI & Abdominal Exam: Soft, Normal Bowel Sounds - Neurological Exam Neurological Exam: Alert, Awake, Oriented x3 - Psychiatric Exam Psychiatric exam: Normal Affect - Skin Skin Exam: Dry, Warm Assessment and Plan - Assessment and Plan (Free Text) Assessment: Transferred to TCU for reconditioning. A 57 year old male who came in to the ER due to shortness of breath. History of chronic Afib, post radiofrequency ablation, coronary artery disease, congestive heart failure, COPD, myocardial infarction, non ischemic cardiomyopathy,hypertension and chronic back pain. Admitted for exacerbation of COPD, episode of rapid atrial fibrillation treated with cardizem IV then switch to oral. Plan: Mild shortness of breath when walking Continue Nebulizer treatment Heart rate goes up to 110/min Calan SR increased to 180 mg daily yesterday Will increase Sotalol to 80 mg BID Watch for hypotension Continue IV antibiotics as ordered On ASA 81 mg daily,Lasix 40 mg daily,Solumedrol 20 mg BID Sotalol 40 mg BID, Calan Sr 120 mg daily Physical therapy in progress Seen by Podiatry for nails Continue current treatment Continue current medications Will follow up Plan and treatment discussed with
[2018-03-24 07:45] LABS: ALB/GLOB RATIO 1.6 (1.1-1.8); ALBUMIN 4.1 g/dL (3.0-4.8); ALT/SGPT 122 U/L (7-56); AST/SGOT 65 U/L (17-59); BLOOD UREA NITROGEN 19 mg/dL (7-21); CALCIUM 9.7 mg/dL (8.4-10.5); GFR NON-AFRICAN AMERICAN > 60
[2018-03-24] MEDS: Potassium Chloride 10 mEq ER Tab PO SCH (08:48)
[2018-03-24] MEDS: POLYETHYLENE GLYCOL 3350 17 GM/Dose PACKET PO SCH (09:07)
[2018-03-24] MEDS: oxyCODONE 20 mg ER Tab (oxyCONTIN) PO PRN ×3 (09:16→23:59)
[2018-03-24] MEDS: oxyCODONE 10 mg Immediate Release Tab PO PRN ×2 (09:16→17:31)
[2018-03-24 10:07] LABS: EOSINOPHIL 1 % (0.0-3.0); LYMPHOCYTE 9 % (22.0-35.0); MONOCYTE 3 % (1.0-6.0); NEUTROPHIL 87 % (50.0-70.0)
[2018-03-24 10:08] LABS: PLATELET ESTIMATE NORMAL (NORMAL)
[2018-03-24] MEDS: Verapamil 180 mg ER Tab PO SCH (10:55)
--- NOTE | 2018-03-24 12:24 | PN ---
Copied To: Bob Love MD Attending MD: Bob Love MD DATE: 03/24/2018 PULMONARY PROGRESS NOTE SUBJECTIVE: The patient is feeling well other than constipation. He will discuss this with his PMD. His respiratory status is improved. He is not short of breath at rest. He is able to move around a bit without dyspnea. Greater exertion, however, does cause some shortness of breath. He remains on prednisone 40 mg daily in divided doses. PHYSICAL EXAMINATION: VITAL SIGNS: Stable. He is afebrile; heart rate of 100, but irregular; respiratory rate is 18; pulse ox 96% on nasal cannula. HEENT: Normocephalic, atraumatic. NECK: Supple. No JVD. No lymphadenopathy. CARDIOVASCULAR: Irregular rhythm. S1, S2. LUNGS: Global decrease in breath sounds with minimal rhonchi. No wheezing appreciated. ABDOMEN: Soft. Bowels sounds normoactive without mass, guarding, rebound or organomegaly. : Within normal limits EXTREMITY: Reveals trace edema persists. SKIN: Dry; intact LABORATORY DATA: No new laboratory study is available. ASSESSMENT: 1. Chronic obstructive pulmonary disease, severe, but stable and improving. 2. Bronchospasm, improving. Remains on the prednisone 20. 3. Pulmonary vascular congestion/congestive heart failure, improved as well. 4. Atrial fibrillation. 5. Constipation. PLAN: Continue to decrease corticosteroids. We will change from prednisone to Medrol at a decreased dose. This will hopefully allow for less sodium retention in the phase of congestive heart failure. We will continue to follow Mr. Cano closely. He remains on Daliresp in addition to inhaled bronchodilators, corticosteroids and anticholinergics. We will follow closely with him during this hospitalization and again upon discharge. Thank you for the opportunity to continue to follow this kemi gentleman. Bob oLve MD MTDD
[2018-03-24] MEDS: Simethicone 80 mg Chewtab PO PRN (17:32)
[2018-03-24] MEDS: Bisacodyl 5mg EC Tab PO SCH (18:02)
--- NOTE | 2018-03-24 22:15 | PN ---
Copied To: Ross Bowman MD Attending MD: Ross Bowman MD DATE: 03/24/2018 SUBJECTIVE: The patient is a 58-year-old, seen and examined, complained of intermittent tachycardia and palpitation, complained of constipation. Otherwise doing better. OBJECTIVE: VITAL SIGNS: He is afebrile, pulse 70, respirations 16, blood pressure 101/72. LUNGS: Bilateral diffusely decreased breath sounds. HEART: S1, S2 audible. ABDOMEN: Soft and obese, nontender. No rebound, no guarding. NEUROLOGIC: He is awake, alert, oriented, communicative, ambulatory. Bilateral legs, no edema. LABORATORY DATA: WBCs 14.3, hemoglobin 13.8, hematocrit 41.9, platelets of 199. Chemistry; sodium 138, potassium 4.5, chloride 93, CO2 of 34, BUN 19, creatinine 0.5, blood sugar of 79. AST 65, ALT 122. ASSESSMENT: 1. Chronic obstructive pulmonary disease exacerbation. 2. History of heart failure. 3. Nonischemic cardiomyopathy. 4. Chronic degenerative disc disease. 5. Chronic constipation secondary to narcotics. PLAN: I will start him on p.o. Dulcolax since he is complaining of constipation in spite of being on MiraLax. Ross Bowman MD
[2018-03-25] MEDS: Enoxaparin 40 mg Syringe SC SCH (05:53)
[2018-03-25] MEDS: Non Formulary Medication (Linaclotide [Linzess] 145 MCG) PO SCH (05:53)
[2018-03-25] MEDS: Budesonide 0.5 mg/2 ml Inhal Susp UD IH SCH ×2 (07:13→20:03)
[2018-03-25] MEDS: Levalbuterol 0.63 MG/3 ML Inhal Soln UD IH PRN ×2 (07:14→20:03)
--- NOTE | 2018-03-25 07:26 | CP.PCM.PN ---
Subjective - Date & Time of Evaluation Date of Evaluation: 03/25/18 Time of Evaluation: 06:55 - Subjective Subjective: Ambulating to bathroom, awake, shortness of breath on exertion Reason for consultation and follow up: Continuity of care in TCU, Cardiac evaluation of rapid ventricular rate Atrial fibrillation, history of chronic Afib, coronary artery disease, congestive heart failure, COPD, myocardial infarction, hypertension. Seen and examined by me and Dr. Resendez Objective - Vital Signs/Intake and Output Vital Signs (last 24 hours): Temp Pulse Resp BP Pulse Ox 98.7 F 76 16 100/58 L 96 03/24/18 16:00 03/24/18 17:33 03/24/18 16:00 03/25/18 05:55 03/24/18 16:00 - Medications Medications: Current Medications Acetaminophen (Tylenol 325mg Tab) 650 mg PO Q4H PRN; Protocol PRN Reason: Fever >100.5 F Albuterol/Ipratropium (Duoneb 3 Mg/0.5 Mg (3 Ml) Ud) 3 ml IH Q3H PRN; Protocol PRN Reason: Shortness of Breath Alprazolam (Xanax) 0.5 mg PO BID [facility] PRN Reason: Protocol Last Admin: 03/24/18 17:29 Dose: 0.5 mg Aspirin (Ecotrin) 81 mg PO 0800 [facility] PRN Reason: Protocol Last Admin: 03/24/18 08:49 Dose: 81 mg Bisacodyl (Dulcolax) 5 mg PO DAILY [facility] Last Admin: 03/24/18 18:02 Dose: 5 mg Budesonide (Pulmicort Respules) 0.5 mg IH [id number] [facility] PRN Reason: Protocol Last Admin: 03/25/18 07:13 Dose: 0.5 mg Doxycycline Hyclate (Doryx) 100 mg PO Q12 [facility] PRN Reason: Protocol Last Admin: 03/24/18 21:33 Dose: 100 mg Enoxaparin Sodium (Lovenox) 40 mg SC 0600 [facility] PRN Reason: Protocol Last Admin: 03/25/18 05:53 Dose: 40 mg Ferrous Sulfate (Feosol) 324 mg PO 0800,1800 [facility] PRN Reason: Protocol Last Admin: 03/24/18 17:33 Dose: 324 mg Furosemide (Lasix) 40 mg PO 0600 [facility] PRN Reason: Protocol Last Admin: 03/25/18 05:55 Dose: 40 mg Levalbuterol HCl (Xopenex) 0.63 mg IH [id number] PRN; Protocol PRN Reason: Shortness of Breath Last Admin: 03/25/18 07:14 Dose: 0.63 mg Methylprednisolone (Medrol) 12 mg PO BID [facility] Last Admin: 03/24/18 17:34 Dose: 12 mg Non-Formulary Medication (Linaclotide [Linzess]) 145 mcg PO 0630 [facility] Last Admin: 03/25/18 05:53 Dose: 145 mcg Oxycodone HCl (Oxycodone Immediate Release Tab) 10 mg PO BID PRN; Protocol PRN Reason: Pain, moderate (4-7) Last Admin: 03/24/18 17:31 Dose: 10 mg Oxycodone HCl (Oxycontin Extended Release Tab) 20 mg PO 0000,1200 PRN; Protocol PRN Reason: Pain, moderate (4-7) Last Admin: 03/24/18 23:59 Dose: 20 mg Polyethylene Glycol (Miralax) 17 gm PO DAILY [facility] PRN Reason: Protocol Last Admin: 03/24/18 09:07 Dose: 17 gm Potassium Chloride (Klor-Con 10) 10 meq PO 0800 [facility] PRN Reason: Protocol Last Admin: 03/24/18 08:48 Dose: 10 meq Roflumilast (Daliresp) 500 mcg PO DAILY [facility] PRN Reason: Protocol Last Admin: 03/24/18 09:18 Dose: 500 mcg Simethicone (Mylicon Chew Tab) 80 mg PO [facility] PRN; Protocol PRN Reason: GI distress Last Admin: 03/24/18 17:32 Dose: 80 mg Sotalol HCl (Betapace) 80 mg PO BID [facility] Last Admin: 03/24/18 17:33 Dose: 80 mg Verapamil HCl (Calan Sr Tab) 180 mg PO DAILY [facility] Last Admin: 03/24/18 10:55 Dose: 180 mg - Labs Labs: 03/24/18 07:00 03/24/18 07:00 - Constitutional Appears: No Acute Distress - Eye Exam Eye Exam: Normal appearance - Respiratory Exam Respiratory Exam: Decreased Breath Sounds, Clear to Ausculation Bilateral, NORMAL BREATHING PATTERN - Cardiovascular Exam Cardiovascular Exam: +S1, +S2 - GI/Abdominal Exam GI & Abdominal Exam: Soft, Normal Bowel Sounds - Neurological Exam Neurological Exam: Alert, Awake, Oriented x3 - Psychiatric Exam Psychiatric exam: Normal Affect - Skin Skin Exam: Intact, Warm Assessment and Plan - Assessment and Plan (Free Text) Assessment: Transferred to TCU for reconditioning. A 57 year old male who came in to the ER due to shortness of breath. History of chronic Afib, post radiofrequency ablation, coronary artery disease, congestive heart failure, COPD, myocardial infarction, non ischemic cardiomyopathy,hypertension and chronic back pain. Admitted for exacerbation of COPD, episode of rapid atrial fibrillation treated with cardizem IV then switch to oral. Plan: Heart rate controlled to 70-80's/min continue on Sotalol and Calan SR Mild shortness of breath after walking from the bathroom Continue Nebulizer treatment Continue IV antibiotics as ordered On ASA 81 mg daily,Lasix 40 mg daily,Medrol 12 mg BID Sotalol 80 mg BID, Calan Sr 120 mg daily Complaints of constipation- on Dulcolax 5 mg daily, Linzess 145 mcg daily Miralax 17 gm daily. Physical therapy in progress Continue current treatment Continue current medications Will follow up Plan and treatment discussed with
[2018-03-25] MEDS: oxyCODONE 10 mg Immediate Release Tab PO PRN (08:30)
[2018-03-25] MEDS: Potassium Chloride 10 mEq ER Tab PO SCH (08:30)
[2018-03-25] MEDS: Bisacodyl 5mg EC Tab PO SCH (09:50)
[2018-03-25] MEDS: POLYETHYLENE GLYCOL 3350 17 GM/Dose PACKET PO SCH (09:52)
[2018-03-25] MEDS: Verapamil 180 mg ER Tab PO SCH (09:52)
--- NOTE | 2018-03-25 11:59 | PN ---
Copied To: Bob Love MD Attending MD: Bob Love MD DATE: 03/25/2018 PULMONARY PROGRESS NOTE SUBJECTIVE: Demetrio is feeling stronger. He is sitting up in bed. He offers no complaints regarding shortness of breath. He is able to talk comfortably without dyspnea. We have explained the oral corticosteroid dose. Change to Medrol 60 mg twice daily, he is aware. PHYSICAL EXAMINATION: VITAL SIGNS: Stable, afebrile. HEENT: Normocephalic, atraumatic. NECK: Supple. No JVD. CARDIOVASCULAR: Irregular rhythm. S1, S2 without gallop. LUNGS: Improved breath sounds. No effusions. No rales, rhonchi or wheezes noted today. ABDOMEN: Soft. : Within normal limits EXTREMITIES: Reveal no clubbing or cyanosis. Edema has resolved. SKIN: Dry; intact ASSESSMENT: Chronic obstructive pulmonary disease, severe, but improved; pulmonary vascular congestion, improved as well; atrial fibrillation. PLAN: The patient plans to be discharged in the next several days. He will go home on his medication including Brovana, budesonide, Spiriva and Daliresp. He will require a tapering dose of corticosteroids, which we may need to continue on an every other day basis at the next office visit. He has been told to contact my office immediately upon discharge and make an appointment for 1 week following discharge. He will be taking oral corticosteroids until that time when we can better assess his mobility and general pulmonary status. He is markedly more comfortable and we agree with the possibility of discharge over the next 48-72 hours. Bob Love MD MTDRoberto
[2018-03-25] MEDS: oxyCODONE 20 mg ER Tab (oxyCONTIN) PO PRN (14:56)
[2018-03-26] MEDS: Enoxaparin 40 mg Syringe SC SCH (05:23)
[2018-03-26] MEDS: oxyCODONE 10 mg Immediate Release Tab PO PRN ×2 (05:25→15:17)
[2018-03-26] MEDS: Non Formulary Medication (Linaclotide [Linzess] 145 MCG) PO SCH (06:35)
[2018-03-26] MEDS: Levalbuterol 0.63 MG/3 ML Inhal Soln UD IH PRN (06:58)
[2018-03-26] MEDS: Potassium Chloride 10 mEq ER Tab PO SCH (08:00)
--- NOTE | 2018-03-26 08:10 | CP.PCM.PN ---
Subjective - Date & Time of Evaluation Date of Evaluation: 03/26/18 Time of Evaluation: 06:40 - Subjective Subjective: lying in bed, awake, denies shortness of breath, room changed Reason for consultation and follow up: Continuity of care in TCU, Cardiac evaluation of rapid ventricular rate Atrial fibrillation, history of chronic Afib, coronary artery disease, congestive heart failure, COPD, myocardial infarction, hypertension. Seen and examined by me and Dr. Samuel Objective - Vital Signs/Intake and Output Vital Signs (last 24 hours): Temp Pulse Resp BP Pulse Ox 98.7 F 62 18 107/72 98 03/25/18 15:00 03/25/18 15:00 03/25/18 15:00 03/26/18 05:24 03/25/18 12:11 - Medications Medications: Current Medications Acetaminophen (Tylenol 325mg Tab) 650 mg PO Q4H PRN; Protocol PRN Reason: Fever >100.5 F Albuterol/Ipratropium (Duoneb 3 Mg/0.5 Mg (3 Ml) Ud) 3 ml IH Q3H PRN; Protocol PRN Reason: Shortness of Breath Alprazolam (Xanax) 0.5 mg PO BID [facility] PRN Reason: Protocol Last Admin: 03/25/18 17:13 Dose: 0.5 mg Aspirin (Ecotrin) 81 mg PO 0800 [facility] PRN Reason: Protocol Last Admin: 03/26/18 08:00 Dose: 81 mg Bisacodyl (Dulcolax) 5 mg PO DAILY [facility] Last Admin: 03/25/18 09:50 Dose: 5 mg Budesonide (Pulmicort Respules) 0.5 mg IH [id number] [facility] PRN Reason: Protocol Last Admin: 03/25/18 20:03 Dose: 0.5 mg Doxycycline Hyclate (Doryx) 100 mg PO Q12 [facility] PRN Reason: Protocol Last Admin: 03/25/18 21:34 Dose: 100 mg Enoxaparin Sodium (Lovenox) 40 mg SC 0600 [facility] PRN Reason: Protocol Last Admin: 03/26/18 05:23 Dose: 40 mg Ferrous Sulfate (Feosol) 324 mg PO 0800,1800 [facility] PRN Reason: Protocol Last Admin: 03/26/18 08:00 Dose: 324 mg Furosemide (Lasix) 40 mg PO 0600 [facility] PRN Reason: Protocol Last Admin: 03/26/18 05:24 Dose: 40 mg Levalbuterol HCl (Xopenex) 1.25 mg IH [id number] [facility] Non-Formulary Medication (Linaclotide [Linzess]) 145 mcg PO 0630 [facility] Last Admin: 03/26/18 06:35 Dose: 145 mcg Oxycodone HCl (Oxycodone Immediate Release Tab) 10 mg PO BID PRN; Protocol PRN Reason: Pain, moderate (4-7) Last Admin: 03/26/18 05:25 Dose: 10 mg Oxycodone HCl (Oxycontin Extended Release Tab) 20 mg PO 0000,1200 PRN; Protocol PRN Reason: Pain, moderate (4-7) Last Admin: 03/25/18 14:56 Dose: 20 mg Polyethylene Glycol (Miralax) 17 gm PO DAILY [facility] PRN Reason: Protocol Last Admin: 03/25/18 09:52 Dose: 17 gm Potassium Chloride (Klor-Con 10) 10 meq PO 0800 [facility] PRN Reason: Protocol Last Admin: 03/26/18 08:00 Dose: 10 meq Prednisone (Prednisone Tab) 20 mg PO DAILY [facility] Roflumilast (Daliresp) 500 mcg PO DAILY [facility] PRN Reason: Protocol Last Admin: 03/25/18 09:51 Dose: 500 mcg Simethicone (Mylicon Chew Tab) 80 mg PO [facility] PRN; Protocol PRN Reason: GI distress Last Admin: 03/24/18 17:32 Dose: 80 mg Sotalol HCl (Betapace) 80 mg PO BID [facility] Last Admin: 03/25/18 17:09 Dose: 80 mg Verapamil HCl (Calan Sr Tab) 180 mg PO DAILY [facility] Last Admin: 03/25/18 09:52 Dose: 180 mg - Labs Labs: 03/24/18 07:00 03/24/18 07:00 - Constitutional Appears: No Acute Distress - Eye Exam Eye Exam: Normal appearance - ENT Exam ENT Exam: Mucous Membranes Moist - Respiratory Exam Respiratory Exam: Decreased Breath Sounds, NORMAL BREATHING PATTERN - Cardiovascular Exam Cardiovascular Exam: +S1, +S2 - GI/Abdominal Exam GI & Abdominal Exam: Soft, Normal Bowel Sounds - Extremities Exam Extremities Exam: Normal Capillary Refill - Neurological Exam Neurological Exam: Alert, Awake, Oriented x3 - Psychiatric Exam Psychiatric exam: Normal Affect - Skin Skin Exam: Intact, Warm Assessment and Plan - Assessment and Plan (Free Text) Assessment: A 57 year old male who came in to the ER due to shortness of breath. History of chronic Afib, post radiofrequency ablation, coronary artery disease, congestive heart failure, COPD, myocardial infarction, non ischemic cardiomyopathy,hypertension and chronic back pain. Admitted for exacerbation of COPD, episode of rapid atrial fibrillation treated with cardizem IV then switch to oral.Transferred to TCU for reconditioning. Heart rate 100-110's, Sotalol increased to 80 mg and Calan increased to 180 mg daily, controlled to 70's and 80's. Plan: Feels better, breathing better Clinically improved Heart rate controlled after increasing dose of Sotalol and Calan SR. Continue Nebulizer treatment Continue IV antibiotics as ordered On ASA 81 mg daily,Lasix 40 mg daily,Medrol 12 mg BID Sotalol 80 mg BID, Calan Sr 180 mg daily Physical therapy in progress Continue current treatment Continue current medications discharge planning Will follow up Plan and treatment discussed with
--- NOTE | 2018-03-26 08:19 | PN ---
Copied To: Mane Pienda MD Attending MD: Mane Pineda MD DATE: 03/26/2018 PULMONARY NOTE SUBJECTIVE: The patient appears very comfortable this morning. He is not short of breath at rest. PHYSICAL EXAMINATION: VITAL SIGNS: Temperature is 98.7, pulse 62, respirations 18, blood pressure 107/72. Oxygen saturation on nasal cannula is 98%. HEENT: Normocephalic, atraumatic. No JVD. CARDIOVASCULAR: Systolic ejection murmur at the lower left sternal border. No S3 gallop. LUNGS: Clear bilaterally. EXTREMITIES: Mild edema. No cyanosis, no clubbing. Calves are nontender to palpation. GASTROINTESTINAL: Abdomen is soft, nontender, and nondistended. Bowel sounds are positive. SKIN: No acute rash. NEUROLOGIC: Limited at the present time. IMPRESSION: 1. Acute bronchitis. 2. Advanced chronic obstructive pulmonary disease, on home oxygen. 3. Left basilar pneumonia. 4. Mild anemia. 5. Coronary artery disease. PLAN: The patient appears very comfortable this morning. He is not short of breath at rest. He does state to feeling much, much better overall. On physical exam, his bronchospasm has primarily resolved. In addition, the alveolar-arterial gradient has also resolved. I will continue with the current nebulizer treatments for now. I will also change to oral prednisone - for ease of weaning. The patient remains on oral antibiotic therapy. There are no temperatures noted. Clinical status of the patient is significantly improved overall. I will discuss the above the attending physician. Mane Pineda MD LEANDRA
--- NOTE | 2018-03-26 09:14 | PN ---
Copied To: Ross Bowman MD Attending MD: Ross Bowman MD DATE: 03/25/2018 SUBJECTIVE: The patient is 58 years old, seen and examined. Had chest pain after he came back from therapy, was given nitroglycerin, seems to be doing a little better. Mild shortness of breath. Off and on palpitation. PHYSICAL EXAMINATION: VITAL SIGNS: He is afebrile, pulse 75, respirations 20, blood pressure 113/63. LUNGS: Bilateral fair airflow. No rhonchi or crackle. HEART: S1 and S2 audible. ABDOMEN: Soft, obese, nontender. No rebound. No guarding. NEUROLOGICAL: He is awake, alert, oriented, communicative. EXTREMITIES: Bilateral legs, no edema. ASSESSMENT: 1. Nonischemic cardiomyopathy. 2. Chronic obstructive pulmonary disease. 3. History of hypertension, but currently running hypotensive. 4. Degenerative disk disease with narcotic dependence for back pain. 5. Chronic constipation. PLAN: Currently, the patient is on sotalol, verapamil. We will continue that. He is on doxycycline, nebulizer treatment. Keep him on analgesic. We will reevaluate the patient in the a.m. Ross Bowman MD
[2018-03-26] MEDS: Verapamil 180 mg ER Tab PO SCH (10:25)
[2018-03-26] MEDS: Bisacodyl 5mg EC Tab PO SCH (10:25)
[2018-03-26] MEDS: POLYETHYLENE GLYCOL 3350 17 GM/Dose PACKET PO SCH (10:26)
[2018-03-26] MEDS: oxyCODONE 20 mg ER Tab (oxyCONTIN) PO PRN (11:04)
[2018-03-26] MEDS: Budesonide 0.5 mg/2 ml Inhal Susp UD IH SCH (19:37)
[2018-03-26] MEDS: Levalbuterol 1.25 MG/3 ML Inhal Soln UD IH SCH (19:38)
[2018-03-27] MEDS: oxyCODONE 20 mg ER Tab (oxyCONTIN) PO PRN ×2 (00:13→16:24)
[2018-03-27] MEDS: Simethicone 80 mg Chewtab PO PRN ×2 (00:17→17:16)
--- NOTE | 2018-03-27 00:37 | PN ---
Copied To: Ross Bowman MD Attending MD: Ross Bowman MD DATE: 03/26/2018 SUBJECTIVE: Patient is 58 years old, seen and examined, lying in bed, seems to be comfortable. No chest pain. No shortness of breath. Does complain of constipation. PHYSICAL EXAMINATION: VITAL SIGNS: He is afebrile, pulse 82, respiration 22, blood pressure 100/64. LUNGS: Bilateral fair airflow. No rhonchi or crackle. HEART: S1 and S2 audible. Regular rate and rhythm. ABDOMEN: Soft, obese, and nontender. No rebound. No guarding. NEUROLOGIC: He is awake, alert, oriented, communicative, ambulate with a walker. Gets exertional dyspnea. ASSESSMENT AND PLAN: 1. Chronic obstructive pulmonary disease exacerbation. 2. History of hypertension, but currently running hypotensive. 3. Brief episode of atrial fibrillation. Currently, patient is on Betapace 80 mg twice a day, verapamil 180 mg daily. I will discontinue patient's doxycycline. We will continue him on nebulizer treatment. 4. Nonischemic cardiomyopathy. 5. Chronic degenerative disk disease, on narcotics. So, patient is able to continue all other treatment. He is scheduled to be discharged on Monday. Ross Bowman MD
[2018-03-27] MEDS: Levalbuterol 1.25 MG/3 ML Inhal Soln UD IH SCH ×6 (02:16→19:20)
[2018-03-27] MEDS: Enoxaparin 40 mg Syringe SC SCH (05:50)
[2018-03-27] MEDS: Non Formulary Medication (Linaclotide [Linzess] 145 MCG) PO SCH (05:51)
--- NOTE | 2018-03-27 06:59 | CP.PCM.PN ---
Subjective - Date & Time of Evaluation Date of Evaluation: 03/27/18 Time of Evaluation: 06:35 - Subjective Subjective: ambulating to bathroom, denies shortness of breath,awake,feels okay Reason for consultation and follow up: Continuity of care in TCU, Cardiac evaluation of rapid ventricular rate Atrial fibrillation, history of chronic Afib, coronary artery disease, congestive heart failure, COPD, myocardial infarction, hypertension. Seen and examined by me and Dr. Samuel Objective - Vital Signs/Intake and Output Vital Signs (last 24 hours): Temp Pulse Resp BP Pulse Ox 98.7 F 82 18 89/54 L 96 03/25/18 15:00 03/26/18 17:44 03/25/18 15:00 03/27/18 05:50 03/26/18 16:06 - Medications Medications: Current Medications Acetaminophen (Tylenol 325mg Tab) 650 mg PO Q4H PRN; Protocol PRN Reason: Fever >100.5 F Albuterol/Ipratropium (Duoneb 3 Mg/0.5 Mg (3 Ml) Ud) 3 ml IH Q3H PRN; Protocol PRN Reason: Shortness of Breath Alprazolam (Xanax) 0.5 mg PO BID [facility] PRN Reason: Protocol Last Admin: 03/26/18 17:45 Dose: 0.5 mg Aspirin (Ecotrin) 81 mg PO 0800 [facility] PRN Reason: Protocol Last Admin: 03/26/18 08:00 Dose: 81 mg Bisacodyl (Dulcolax) 5 mg PO DAILY [facility] Last Admin: 03/26/18 10:25 Dose: 5 mg Budesonide (Pulmicort Respules) 0.5 mg IH [id number] [facility] PRN Reason: Protocol Last Admin: 03/26/18 19:37 Dose: 0.5 mg Enoxaparin Sodium (Lovenox) 40 mg SC 0600 [facility] PRN Reason: Protocol Last Admin: 03/27/18 05:50 Dose: 40 mg Ferrous Sulfate (Feosol) 324 mg PO 0800,1800 [facility] PRN Reason: Protocol Last Admin: 03/26/18 17:44 Dose: 324 mg Furosemide (Lasix) 40 mg PO 0600 [facility] PRN Reason: Protocol Last Admin: 03/27/18 05:50 Dose: Not Given Levalbuterol HCl (Xopenex) 1.25 mg IH [id number] [facility] Last Admin: 03/27/18 02:22 Dose: 1.25 mg Non-Formulary Medication (Linaclotide [Linzess]) 145 mcg PO 0630 [facility] Last Admin: 03/27/18 05:51 Dose: 145 mcg Oxycodone HCl (Oxycodone Immediate Release Tab) 10 mg PO BID PRN; Protocol PRN Reason: Pain, moderate (4-7) Last Admin: 03/26/18 15:17 Dose: 10 mg Oxycodone HCl (Oxycontin Extended Release Tab) 20 mg PO 0000,1200 PRN; Protocol PRN Reason: Pain, moderate (4-7) Last Admin: 03/27/18 00:13 Dose: 20 mg Polyethylene Glycol (Miralax) 17 gm PO DAILY [facility] PRN Reason: Protocol Last Admin: 03/26/18 10:26 Dose: 17 gm Potassium Chloride (Klor-Con 10) 10 meq PO 0800 [facility] PRN Reason: Protocol Last Admin: 03/26/18 08:00 Dose: 10 meq Prednisone (Prednisone Tab) 20 mg PO DAILY [facility] Last Admin: 03/26/18 10:26 Dose: 20 mg Roflumilast (Daliresp) 500 mcg PO DAILY [facility] PRN Reason: Protocol Last Admin: 03/26/18 10:25 Dose: 500 mcg Simethicone (Mylicon Chew Tab) 80 mg PO [facility] PRN; Protocol PRN Reason: GI distress Last Admin: 03/27/18 00:17 Dose: 80 mg Sotalol HCl (Betapace) 80 mg PO BID [facility] Last Admin: 03/26/18 17:44 Dose: 80 mg Verapamil HCl (Calan Sr Tab) 180 mg PO DAILY [facility] Last Admin: 03/26/18 10:25 Dose: 180 mg - Labs Labs: 03/24/18 07:00 03/24/18 07:00 - Constitutional Appears: No Acute Distress - Eye Exam Eye Exam: Normal appearance - Respiratory Exam Respiratory Exam: Decreased Breath Sounds, NORMAL BREATHING PATTERN - Cardiovascular Exam Cardiovascular Exam: +S1, +S2 - GI/Abdominal Exam GI & Abdominal Exam: Soft, Normal Bowel Sounds - Neurological Exam Neurological Exam: Alert, Awake, Oriented x3 - Psychiatric Exam Psychiatric exam: Normal Affect - Skin Skin Exam: Intact, Warm Assessment and Plan - Assessment and Plan (Free Text) Assessment: A 57 year old male who came in to the ER due to shortness of breath. History of chronic Afib, post radiofrequency ablation, coronary artery disease, congestive heart failure, COPD, myocardial infarction, non ischemic cardiomyopathy,hypertension and chronic back pain. Admitted for exacerbation of COPD, episode of rapid atrial fibrillation treated with cardizem IV then switch to oral.Transferred to TCU for reconditioning. Heart rate 100-110's, Sotalol increased to 80 mg and Calan increased to 180 mg daily, controlled to 70's and 80's.Clinically improved. Plan: Clinically improved, feels better Heart rate controlled On ASA 81 mg daily,Lasix 40 mg daily,Medrol 12 mg BID Sotalol 80 mg BID, Calan Sr 180 mg daily Physical therapy in progress Continue current treatment Continue current medications Discharge planning Will follow up Plan and treatment discussed with
[2018-03-27 07:11] LABS: BASO # 0.01 K/mm3 (0.0-2.0); BASO % 0.1 % (0.0-3.0); EOS # 0.1 (0.0-0.7); EOS % 1.1 % (1.5-5.0); GRAN # 10.03 (1.4-6.5); GRAN % 88.2 % (50.0-68.0); HEMOGLOBIN 12.8 g/dL (14.0-18.0); LYMPH # 0.8 (1.2-3.4); LYMPH % 7.3 % (22.0-35.0); MEAN CORPUSCULAR HEMOGLOBIN 26.2 pg (25.0-35.0); MEAN CORPUSCULAR HGB CONC 32.7 g/dl (31.0-37.0); MEAN PLATELET VOLUME 9.8 fl (7.0-11.0); MONO # 0.4 (0.1-0.6); MONO % 3.3 % (1.0-6.0); RBC 4.89 10^6/uL (3.5-6.1); RED CELL DISTRIBUTION WIDTH 17.1 % (11.5-14.5); WHITE BLOOD COUNT 11.4 10^3/ul (4.5-11.0)
[2018-03-27] MEDS: Budesonide 0.5 mg/2 ml Inhal Susp UD IH SCH ×2 (07:13→19:19)
--- NOTE | 2018-03-27 07:27 | PN ---
Copied To: Mane Pineda MD Attending MD: Mane Pineda MD DATE: 03/27/2018 PULMONARY NOTE SUBJECTIVE: The patient appears very comfortable this morning. He is not short of breath at rest. PHYSICAL EXAMINATION: VITAL SIGNS: Last temperature recorded is 98.7, pulse this morning is 80, respirations 18, blood pressure 89/54. Oxygen saturation on nasal cannula is 96%. HEENT: Normocephalic, atraumatic. No JVD. CARDIOVASCULAR: Systolic ejection murmur at the lower left sternal border. No S3 gallop. LUNGS: Clear bilaterally. EXTREMITIES: Mild edema. No cyanosis, no clubbing. Calves are nontender to palpation. GASTROINTESTINAL: Abdomen is soft, nontender, and nondistended. Bowel sounds are positive. SKIN: No acute rash. NEUROLOGIC: Limited at the present time. IMPRESSION: 1. Acute bronchitis. 2. Advanced chronic obstructive pulmonary disease, on home oxygen. 3. Left basilar pneumonia. 4. Mild anemia. 5. Coronary artery disease. PLAN: The patient appears very comfortable this morning. He is not short of breath at rest. He does state to feeling much better overall. I did discuss the case with the night nurse and practical nursing teacher at length. The patient's blood pressure is a little bit low for him - this morning. The blood pressure will be rechecked within the hour. The nursing staff will also touch base with Dr. Bowman later this morning. On physical exam, his lungs remain clear. In addition, there is no significant alveolar-arterial gradient. I will continue with the current nebulizer treatments and low dose prednisone (changed yesterday) for now. Input by Cardiology is also noted. Clinical status of the patient has significantly improved overall. However, the future status/prognosis for this patient does remain somewhat guarded - as he does continue to have advanced lung disease. I will discuss the above with Dr. Bowman. Mane Pineda MD [facility]
[2018-03-27 07:28] LABS: BLOOD UREA NITROGEN 20 mg/dL (7-21); CALCIUM 8.9 mg/dL (8.4-10.5); GFR NON-AFRICAN AMERICAN > 60
[2018-03-27] MEDS: Potassium Chloride 10 mEq ER Tab PO SCH (07:47)
[2018-03-27] MEDS: Verapamil 180 mg ER Tab PO SCH (09:42)
[2018-03-27] MEDS: Bisacodyl 5mg EC Tab PO SCH (09:43)
[2018-03-27] MEDS: POLYETHYLENE GLYCOL 3350 17 GM/Dose PACKET PO SCH (09:44)
[2018-03-27] MEDS: oxyCODONE 10 mg Immediate Release Tab PO PRN ×2 (09:48→23:42)
[2018-03-27] MEDS ORDERED: Verapamil 180 mg ER Tab PO SCH (11:58)
[2018-03-27] MEDS ORDERED: Alum-Mag Hydrox-Simethicone Susp (30 mL) PO ONE (20:13)
--- NOTE | 2018-03-28 00:38 | PN ---
Copied To: Ross Bowman MD Attending MD: Ross Bowman MD DATE: 03/27/2018 SUBJECTIVE: The patient is 58 years old, seen and examined, complained of feeling weak, tired. His blood pressure was low this morning. Complained of feeling drained. No shortness of breath. No chest pain. PHYSICAL EXAMINATION: VITAL SIGNS: He is afebrile, pulse 96, respirations 18, blood pressure 112/62. LUNGS: Bilateral fair airflow. Diffusely decreased breath sounds, posteriorly. HEART: S1, S2 audible, rate controlled. ABDOMEN: Soft, obese, nontender. No rebound. No guarding. NEUROLOGICAL: He is awake, alert, oriented, communicative. EXTREMITIES: Bilateral legs, no edema. LABORATORY EXAM: WBC 11.4, hemoglobin 12.8, hematocrit 39.1, platelets 135. Chemistry: Sodium 137, potassium 3.9, chloride 99, CO2 of 29, BUN 20, creatinine 0.5. Blood sugar of 112. ASSESSMENT: 1. Status post congestive heart failure exacerbation. 2. History of chronic obstructive pulmonary disease. 3. short lived episode of atrial fibrillation, currently in sinus rhythm. 4. Deconditioning and difficulty walking. 5. Chronic back pain. 6. Narcotic dependence. PLAN: Currently patient is rate controlled. Blood pressure seemed to be decent. We will reevaluate in the a.m. and make disposition plan. Ross Bowman MD
[2018-03-28] MEDS: Levalbuterol 1.25 MG/3 ML Inhal Soln UD IH SCH ×3 (02:04→14:11)
[2018-03-28] MEDS: Non Formulary Medication (Linaclotide [Linzess] 145 MCG) PO SCH (06:00)
[2018-03-28] MEDS: Enoxaparin 40 mg Syringe SC SCH (06:00)
[2018-03-28] MEDS: oxyCODONE 20 mg ER Tab (oxyCONTIN) PO PRN (06:00)
--- NOTE | 2018-03-28 06:54 | CP.PCM.PN ---
Subjective - Date & Time of Evaluation Date of Evaluation: 03/28/18 Time of Evaluation: 06:45 - Subjective Subjective: denies shortness of breath, awake,lying in bed Reason for consultation and follow up: Continuity of care in TCU, Cardiac evaluation of rapid ventricular rate Atrial fibrillation, history of chronic Afib, coronary artery disease, congestive heart failure, COPD, myocardial infarction, hypertension. Seen and examined by me and Dr. Samuel Objective - Vital Signs/Intake and Output Vital Signs (last 24 hours): Temp Pulse Resp BP Pulse Ox 97.8 F 96 H 18 97/61 L 100 03/27/18 16:00 03/27/18 17:17 03/27/18 16:00 03/28/18 06:00 03/27/18 16:00 - Medications Medications: Current Medications Acetaminophen (Tylenol 325mg Tab) 650 mg PO Q4H PRN; Protocol PRN Reason: Fever >100.5 F Albuterol/Ipratropium (Duoneb 3 Mg/0.5 Mg (3 Ml) Ud) 3 ml IH Q3H PRN; Protocol PRN Reason: Shortness of Breath Alprazolam (Xanax) 0.5 mg PO BID [facility] PRN Reason: Protocol Last Admin: 03/27/18 17:19 Dose: 0.5 mg Aspirin (Ecotrin) 81 mg PO 0800 [facility] PRN Reason: Protocol Last Admin: 03/27/18 08:00 Dose: 81 mg Bisacodyl (Dulcolax) 5 mg PO DAILY [facility] Last Admin: 03/27/18 09:43 Dose: 5 mg Budesonide (Pulmicort Respules) 0.5 mg IH [id number] [facility] PRN Reason: Protocol Last Admin: 03/27/18 19:19 Dose: 0.5 mg Enoxaparin Sodium (Lovenox) 40 mg SC 0600 [facility] PRN Reason: Protocol Last Admin: 03/28/18 06:00 Dose: 40 mg Ferrous Sulfate (Feosol) 324 mg PO 0800,1800 [facility] PRN Reason: Protocol Last Admin: 03/27/18 17:22 Dose: Not Given Furosemide (Lasix) 40 mg PO 0600 [facility] PRN Reason: Protocol Last Admin: 03/28/18 06:00 Dose: 40 mg Levalbuterol HCl (Xopenex) 1.25 mg IH [id number] [facility] Last Admin: 03/28/18 02:04 Dose: 1.25 mg Non-Formulary Medication (Linaclotide [Linzess]) 145 mcg PO 0630 [facility] Last Admin: 03/28/18 06:00 Dose: 145 mcg Oxycodone HCl (Oxycodone Immediate Release Tab) 10 mg PO BID PRN; Protocol PRN Reason: Pain, moderate (4-7) Last Admin: 03/27/18 23:42 Dose: 10 mg Oxycodone HCl (Oxycontin Extended Release Tab) 20 mg PO 0000,1200 PRN; Protocol PRN Reason: Pain, moderate (4-7) Last Admin: 03/28/18 06:00 Dose: 20 mg Polyethylene Glycol (Miralax) 17 gm PO DAILY [facility] PRN Reason: Protocol Last Admin: 03/27/18 09:44 Dose: Not Given Potassium Chloride (Klor-Con 10) 10 meq PO 0800 [facility] PRN Reason: Protocol Last Admin: 03/27/18 07:47 Dose: 10 meq Prednisone (Prednisone Tab) 20 mg PO DAILY [facility] Last Admin: 03/27/18 09:45 Dose: Not Given Roflumilast (Daliresp) 500 mcg PO DAILY [facility] PRN Reason: Protocol Last Admin: 03/27/18 09:42 Dose: 500 mcg Simethicone (Mylicon Chew Tab) 80 mg PO [facility] PRN; Protocol PRN Reason: GI distress Last Admin: 03/27/18 17:16 Dose: 80 mg Sotalol HCl (Betapace) 80 mg PO BID [facility] Last Admin: 03/27/18 17:17 Dose: 80 mg Verapamil HCl (Calan Sr Tab) 180 mg PO DAILY [facility] - Labs Labs: 03/27/18 06:30 03/27/18 06:30 - Constitutional Appears: No Acute Distress - Head Exam Head Exam: NORMOCEPHALIC - Eye Exam Eye Exam: Normal appearance - ENT Exam ENT Exam: Mucous Membranes Moist - Respiratory Exam Respiratory Exam: Decreased Breath Sounds, Clear to Ausculation Bilateral, NORMAL BREATHING PATTERN - Cardiovascular Exam Cardiovascular Exam: +S1, +S2 - GI/Abdominal Exam GI & Abdominal Exam: Soft, Normal Bowel Sounds - Extremities Exam Extremities Exam: Normal Capillary Refill - Neurological Exam Neurological Exam: Alert, Awake, Oriented x3 - Psychiatric Exam Psychiatric exam: Normal Affect - Skin Skin Exam: Dry, Warm Assessment and Plan - Assessment and Plan (Free Text) Assessment: A 57 year old male who came in to the ER due to shortness of breath. History of chronic Afib, post radiofrequency ablation, coronary artery disease, congestive heart failure, COPD, myocardial infarction, non ischemic cardiomyopathy,hypertension and chronic back pain. Admitted for exacerbation of COPD, episode of rapid atrial fibrillation treated with cardizem IV then switch to oral.Transferred to TCU for reconditioning. Heart rate 100-110's, Sotalol increased to 80 mg and Calan increased to 180 mg daily, controlled to 70's and 80's.Clinically improved.Awaiting discharge. Plan: Cardiac status stable Heart rate controlled 90's/min Blood pressure stable Improved clinically No shortness of breath at rest On ASA 81 mg daily,Lasix 40 mg daily,Medrol 12 mg BID Sotalol 80 mg BID, Calan Sr 180 mg daily Physical therapy in progress Continue current treatment Continue current medications Discharge planning, possible today Will follow up Plan and treatment discussed with
[2018-03-28] MEDS: Budesonide 0.5 mg/2 ml Inhal Susp UD IH SCH (07:22)
[2018-03-28] MEDS: Potassium Chloride 10 mEq ER Tab PO SCH (07:47)
[2018-03-28] MEDS: Bisacodyl 5mg EC Tab PO SCH ×2 (09:46→11:58)
[2018-03-28] MEDS: POLYETHYLENE GLYCOL 3350 17 GM/Dose PACKET PO SCH ×2 (09:46→09:52)
--- NOTE | 2018-03-28 10:18 | PN ---
Copied To: Mane Pineda MD Attending MD: Mane Pineda MD DATE: 03/28/2018 PULMONARY NOTE SUBJECTIVE: The patient appears very comfortable this morning. He is not short of breath at rest. PHYSICAL EXAMINATION: VITAL SIGNS: Last temperature recorded is 97.8, pulse this morning 88, respiratory rate 18, blood pressure 97/61. Oxygen saturation on nasal cannula is 100%. HEENT: Normocephalic, atraumatic. No JVD. CARDIOVASCULAR: Systolic ejection murmur at the lower left sternal border. No S3 gallop. LUNGS: Clear bilaterally. EXTREMITIES: Mild edema. No cyanosis, no clubbing. Calves are nontender to palpation. GASTROINTESTINAL: Abdomen is soft, nontender, and nondistended. Bowel sounds are positive. SKIN: No acute rash. NEUROLOGIC: Limited at the present time. IMPRESSION: 1. Acute bronchitis. 2. Advanced chronic obstructive pulmonary disease, on home oxygen. 3. Left basilar pneumonia. 4. Mild anemia. 5. Coronary artery disease. PLAN: The patient appears very comfortable this morning. He is not short of breath at rest. He does state to feeling much better overall. I did discuss the case with the night nurse at length. The night nurse stated that the patient had a very good night. His blood pressure is improved - compared to yesterday. On physical exam, his bronchospasm continues to resolve. In addition, the oxygen saturation on nasal cannula is now 100%. I will continue with the current nebulizer treatments and low-dose oral steroids for now. Input by Cardiology is noted. Clinical status of the patient is significantly improved overall. I will discuss the above with Dr. Bowman. Mane Pineda MD MTDD
[2018-03-28] MEDS: oxyCODONE 10 mg Immediate Release Tab PO PRN (12:01)
[2018-03-28 14:27] VITALS: BP 110/80; PULSE 101; RESP 16; TEMP 98; O2SAT 98
--- NOTE | 2018-03-29 01:37 | DS ---
Copied To: Ross Bowman MD Attending MD: Ross Bowman MD HISTORY OF PRESENT ILLNESS: The patient is 58 years old, who came initially with cough, congestion, productive cough. He was treated for pneumonia initially, but CAT scan was negative; so, he was given IV steroid and antibiotic initially and while he was in telemetry and waiting to be transferred to TCU, he had episode of AFib; so, he was given a dose of Lovenox, started on Cardizem drip and later on transitioned to verapamil, then transferred to TCU for close observation and physical therapy and did well and started to ambulate, complained of back pain. PHYSICAL EXAMINATION: GENERAL: Today he is awake, alert, oriented, communicative. VITAL SIGNS: He is afebrile, pulse 101, respirations 16, blood pressure 110/80. LUNGS: Bilateral good airflow. Diffusely decreased breath sounds. HEART: S1 and S2 audible. No murmur. ABDOMEN: Soft, nontender. No rebound. No guarding. NEUROLOGICAL: He is awake, alert, oriented and communicative. LABORATORY EXAM: WBC is 11.4, hemoglobin 12.8, hematocrit 39.1, platelet of 135. Chemistry: Sodium 137, potassium 3.9, chloride 99, CO2 of 29, BUN 20, creatinine 0.5. Blood sugar of 112. AST 65, ALT 122. ASSESSMENT: 1. Chronic obstructive pulmonary disease exacerbation. 2. Congestive heart failure exacerbation. 3. Nonischemic cardiomyopathy. 4. Degenerative disc disease. 5. Status post thoracic vertebral fracture, kyphoplasty. PLAN: Patient is being discharged home. He is not on Eliquis anymore; however, he has been started on sotalol 80 mg twice a day, verapamil 180 daily. We will continue his aspirin. We will continue his nebulizer treatment and 10 to 20 mg of prednisone daily. He will follow up with me and Dr. Samuel as outpatient. Ross Bowman MD
== END 2018-03-28 15:56 | disposition home or self-care (01) | DRG 190 ==
LOC: TRCU 14:41
PROVIDERS: ADMIT Internal Medicine; ATTEND Internal Medicine
PROC: F07Z9FZ Gait Training/Functional Ambulation Treatment using Assistive, Adaptive, Supportive or Protective Equipment (ICD-10-PCS; principal; 2018-03-22)
PROC: F07L6ZZ Therapeutic Exercise Treatment of Musculoskeletal System - Lower Back / Lower Extremity (ICD-10-PCS; 2018-03-22)
PROC: F08Z4ZZ Home Management Treatment (ICD-10-PCS; 2018-03-22)
PROC: F07Z5ZZ Bed Mobility Treatment (ICD-10-PCS; 2018-03-23)
DX: J44.1 Chronic obstructive pulmonary disease with (acute) exacerbation (principal); J18.9 Pneumonia, unspecified organism; I42.9 Cardiomyopathy, unspecified; F11.20 Opioid dependence, uncomplicated; J98.11 Atelectasis; R26.2 Difficulty in walking, not elsewhere classified; J44.0 Chronic obstructive pulmonary disease with (acute) lower respiratory infection; J20.9 Acute bronchitis, unspecified; I11.0 Hypertensive heart disease with heart failure; I50.9 Heart failure, unspecified; I25.10 Atherosclerotic heart disease of native coronary artery without angina pectoris; I48.0 Paroxysmal atrial fibrillation; I48.2 Chronic atrial fibrillation; M51.9 Unspecified thoracic, thoracolumbar and lumbosacral intervertebral disc disorder; D64.9 Anemia, unspecified; E11.9 Type 2 diabetes mellitus without complications; G89.29 Other chronic pain; K21.9 Gastro-esophageal reflux disease without esophagitis; K59.03 Drug induced constipation; T40.605A Adverse effect of unspecified narcotics, initial encounter; I25.2 Old myocardial infarction; Z99.81 Dependence on supplemental oxygen; Z87.891 Personal history of nicotine dependence

== ENCOUNTER 2018-08-07 11:56 | Inpatient (IN) | payer MEDICARE, MEDICAID ==
[2018-08-07 11:56] VITALS: PULSE 91
--- NOTE | 2018-08-07 12:16 | ED PDOC ---
Arrival/HPI - General Chief Complaint: Shortness Of Breath Time Seen by Provider: 08/07/18 12:03 Historian: Patient - History of Present Illness Narrative History of Present Illness (Text): 08/07/18 12:16 58 year old male, on lasix, whose past medical history includes COPD, paroxysmal atrial fibrillation, CHF, CAD, [place], hypertension, and chronic back pain, presents to the emergency department complaining of shortness of breath for the past 2 days. Patient states he was having cataract surgery this morning and on his way back he was having a hard time catching his breath, his shortness of breath with wheezing has worsened over the past 2 days. He reports secondary sinus congestion with yellow sputum and bilateral lower extremity edema. Of note, patient is on 3L of oxygen at home. Patient denies fevers, chills, headache, dizziness, chest pain, abdominal pain, nausea, vomiting, diarrhea, neck pain, or any other complaint. PMD: Dr. Samano Pbx Repairer: Dr. Samuel Time/Duration: < week Symptom Onset: Gradual Symptom Course: Unchanged Activities at Onset: Light Context: Home Past Medical History - Provider Review Nursing Documentation Reviewed: Yes - Past History Past History: No Previous - Infectious Disease Hx of Infectious Diseases: None - Tetanus Immunization Tetanus Immunization: Unknown - Past Medical History Past Medical History: Non-Contributing - Cardiac Hx Cardiac Disorders: Yes (Afib (S/P ablation)) Hx Atrial Fibrillation: Yes Hx Congestive Heart Failure: Yes Hx Hypertension: Yes - Pulmonary Hx Chronic Obstructive Pulmonary Disease (COPD): Yes (+Home O2 @ 3LPM) Hx Emphysema: Yes - Neurological Hx Neurological Disorder: No - HEENT Hx HEENT Disorder: Yes (CONTACTS,WEARS RX GLASSES AT TIMES,H/O OF NOSEBLEEDS) Hx Cataracts: Yes Other/Comment: nosebleeds - Renal Hx Renal Disorder: No - Endocrine/Metabolic Hx Diabetes Mellitus Type 2: Yes - Hematological/Oncological Hx Anemia: Yes Hx Cancer: No - Integumentary Other/Comment: tatoo r arm - Musculoskeletal/Rheumatological Hx Falls: No - Gastrointestinal Hx Gastrointestinal Disorders: Yes (appendectomy,colon sx,gerd) - Genitourinary/Gynecological Hx Reproductive Disorders: No - Psychiatric Hx Anxiety: Yes Hx Substance Use: No - Past Surgical History Past Surgical History: Non-Contributing - Surgical History Hx Mastectomy: No Other/Comment: Ablation (h/o afib) - Anesthesia Hx Anesthesia: Yes Hx Anesthesia Reactions: No Hx Malignant Hyperthermia: No - Suicidal Assessment Feels Threatened In Home Enviroment: No Family/Social History - Physician Review Nursing Documentation Reviewed: Yes Family/Social History: No Known Family HX Smoking Status: Former Smoker Hx Alcohol Use: Yes Hx Substance Use: No 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 Hx Substance Use Treatment: Yes Allergies/Home Meds Allergies/Adverse Reactions: Allergies No Known Allergies Allergy (Verified 03/15/18 05:56) Home Medications: Home Meds Medication Instructions Recorded Confirmed Alprazolam [Xanax] 0.5 mg PO BID 08/13/17 03/15/18 Furosemide [Lasix] 20 mg PO DAILY 08/13/17 03/15/18 Linaclotide [Linzess] 145 mcg PO DAILY 08/13/17 03/18/18 Oxycodone HCl [Oxycontin] 20 mg PO BID 08/13/17 03/15/18 Potassium Chloride [Klor-Con 10 meq PO DAILY 08/13/17 03/15/18 Sprinkle] Roflumilast [Daliresp] 500 mcg PO DAILY 08/13/17 03/15/18 predniSONE [predniSONE Tab] 5 mg PO BID 08/13/17 03/15/18 Pantoprazole [Protonix EC Tab] 40 mg PO DAILY 09/02/17 03/15/18 Tiotropium [Spiriva] 18 mcg PO DAILY 12/28/17 03/15/18 Levalbuterol [Xopenex] 1.25 mg IH [id number] PRN 03/15/18 03/15/18 Montelukast [Singulair] 10 mg PO HS 03/15/18 03/15/18 oxyCODONE [oxyCODONE Immediate 10 mg PO BID PRN 03/15/18 03/15/18 Release Tab] Review of Systems - Physician Review All systems were reviewed & negative as marked: Yes - Review of Systems Constitutional: absent: Fevers ENT: Sinus Congestion Respiratory: SOB, Sputum (yellow sputum ), Wheezing Cardiovascular: Edema (bilateral lower leg edema). absent: Chest Pain Gastrointestinal: absent: Abdominal Pain, Diarrhea, Nausea, Vomiting Genitourinary Male: absent: Dysuria Musculoskeletal: absent: Neck Pain Neurological: absent: Headache, Dizziness Physical Exam Vital Signs Reviewed: Yes Temperature: Afebrile Blood Pressure: Hypotensive Pulse: Regular Respiratory Rate: Normal Appearance: Positive for: Well-Appearing, Non-Toxic, Comfortable Pain Distress: None Mental Status: Positive for: Alert and Oriented X 3 - Systems Exam Head: Present: Atraumatic, Normocephalic Pupils: Present: PERRL Extroacular Muscles: Present: EOMI Conjunctiva: Present: Normal Mouth: Present: Moist Mucous Membranes Neck: Present: Normal Range of Motion Respiratory/Chest: Present: Wheezes (inspiratory and expiratory wheezes bilatory with bibasilar crackles), Other (in short sentences). No: Respiratory Distress, Accessory Muscle Use Cardiovascular: Present: Regular Rate and Rhythm, Normal S1, S2. No: Murmurs Abdomen: No: Tenderness, Distention, Peritoneal Signs Back: Present: Normal Inspection Upper Extremity: Present: Normal Inspection. No: Cyanosis, Edema Lower Extremity: Present: Edema (+3 pitting edema on lower extremities bilaterally) Neurological: Present: GCS=15, CN II-XII Intact, Speech Normal Skin: Present: Warm, Dry, Normal Color. No: Rashes Psychiatric: Present: Alert, Oriented x 3, Normal Insight, Normal Concentration Medical Decision Making ED Course and Treatment: 08/07/18 12:16 Impression: 58 year old male who presents to the emergency department complaining of shortness of breath. Differential Diagnosis included but are not limited to: --CHF exacerbation --ACS --pneumonia Plan: -- VBG -- EKG -- Labs -- Chest X-ray -- Blood Culture -- Nasal Cannula -- Urinalysis -- Reassess and disposition Prior Visits: Notes and results from previous visits were reviewed. Progress Notes: 08/07/18 13:[address] Bowman(PCP) who agrees with plan and accepts patient under telemetry. - Lab Interpretations Lab Results: 08/07/18 12:50 08/07/18 12:50 Lab Results 08/07/18 12:50: Sodium 140, Chloride 102, Potassium 4.6, Carbon Dioxide 34 H, Anion Gap 9 L, BUN 20, Creatinine 0.7 L, Est GFR ( Amer) > 60, Est GFR (Non-Af Amer) > 60, Random Glucose 147 H, Calcium 9.6, Magnesium 2.2, Total Bilirubin 0.4, AST 24, ALT 36, Alkaline Phosphatase 68, Troponin I 0.02 D, NT-Pro-B Natriuret Pep 395, Total Protein 6.9, Albumin 4.2, Globulin 2.7, Albumin/Globulin Ratio 1.5 08/07/18 12:50: pO2 40, VBG pH 7.22 L, VBG pCO2 86.0 H*, VBG HCO3 35.2 H, VBG Total CO2 37.8 H, VBG O2 Sat (Calc) 69.8 H, VBG Base Excess 4.5 H, VBG Potassium 4.4, Sodium 140.0, Chloride 100.0, Glucose 153 H, Lactate 2.8 H, FiO2 21.0, Venous Blood Potassium 4.4 08/07/18 12:50: PT 10.2, INR 0.89, APTT 24.7 L 08/07/18 12:50: WBC 14.4 H, RBC 4.72, Hgb 13.6 L, Hct 42.8, MCV 90.7 D, MCH 28.8, MCHC 31.8, RDW 14.4, Plt Count 187, MPV 10.1, Gran % 87.0 H, Lymph % (Auto) 6.3 L, Dickinson % (Auto) 5.6, Eos % (Auto) 0.9 L, Baso % (Auto) 0.2, Gran # 12.51 H, Lymph # (Auto) 0.9 L, Dickinson # (Auto) 0.8 H, Eos # (Auto) 0.1, Baso # (Auto) 0.03 I have reviewed the lab results: Yes - RAD Interpretation Narrative RAD Interpretations (Text): 08/07/18 13:42 Chest X-ray reviewed by radiologist, shows: IMPRESSION: No active pulmonary disease. Software Test Specialist: Radiologist - EKG Interpretation EKG Interpretation (Text): 08/07/18 13:11 EKG taken at 12:05 reviewed, shows: NSR at 86 bpm, with left axis deviation and incomplete RBBB. Interpreted by ED Physician: Yes Type: 12 lead EKG - Scribe Statement The provider has reviewed the documentation as recorded by the Scribe Niurka Chávez Provider Scribe Attestation: All medical record entries made by the Scribe were at my direction and personally dictated by me. I have reviewed the chart and agree that the record accurately reflects my personal performance of the history, physical exam, medical decision making, and the department course for this patient. I have also personally directed, reviewed, and agree with the discharge instructions and disposition. Disposition/Present on Arrival - Present on Arrival Any Indicators Present on Arrival: No History of DVT/PE: No History of Uncontrolled Diabetes: No Urinary Catheter: No History of Decub. Ulcer: No History Surgical Site Infection Following: None - Disposition Have Diagnosis and Disposition been Completed?: Yes Diagnosis: Weakness
[2018-08-07 13:00] LABS: VENOUS BLOOD GAS BASE EXCESS 4.5 mmol/L (0.0-2.0); VENOUS BLOOD GAS PO2 40 mm/Hg (30-55); VENOUS BLOOD PH 7.22 (7.32-7.43)
[2018-08-07 13:03] LABS: BASO # 0.03 K/mm3 (0.0-2.0); BASO % 0.2 % (0.0-3.0); EOS # 0.1 (0.0-0.7); EOS % 0.9 % (1.5-5.0); GRAN # 12.51 (1.4-6.5); HEMOGLOBIN 13.6 g/dL (14.0-18.0); LYMPH # 0.9 (1.2-3.4); LYMPH % 6.3 % (22.0-35.0); MEAN CELL VOLUME 90.7 fl (80.0-105.0); MEAN CORPUSCULAR HEMOGLOBIN 28.8 pg (25.0-35.0); MEAN CORPUSCULAR HGB CONC 31.8 g/dl (31.0-37.0); MEAN PLATELET VOLUME 10.1 fl (7.0-11.0); MONO # 0.8 (0.1-0.6); MONO % 5.6 % (1.0-6.0); RBC 4.72 10^6/uL (3.5-6.1); RED CELL DISTRIBUTION WIDTH 14.4 % (11.5-14.5); WHITE BLOOD COUNT 14.4 10^3/uL (4.5-11.0)
[2018-08-07 13:11] LABS: INR 0.89; PARTIAL THROMBOPLASTIN TIME 24.7 Seconds (25.1-36.5); PROTHROMBIN TIME 10.2 SECONDS (9.4-12.5)
[2018-08-07 13:14] LABS: ALB/GLOB RATIO 1.5 (1.1-1.8); ALBUMIN 4.2 g/dL (3.0-4.8); ALT/SGPT 36 U/L (7-56); AST/SGOT 24 U/L (17-59); BLOOD UREA NITROGEN 20 mg/dL (7-21); CALCIUM 9.6 mg/dL (8.4-10.5); GFR NON-AFRICAN AMERICAN > 60
[2018-08-07] MEDS ORDERED: Albuterol-Ipratrop 3 mg / 0.5 (3 ml) UD IH STA (13:14)
[2018-08-07 13:21] LABS: B-TYPE NATRIURETIC PEPTIDE 395 pg/mL (0-450)
[2018-08-07] MEDS ORDERED: Albuterol-Ipratrop 3 mg / 0.5 (3 ml) UD ONE (13:23)
[2018-08-07 13:25] LABS: TROPONIN I 0.02 ng/mL
--- NOTE | 2018-08-07 13:37 | RAD ---
Date of service: 08/07/2018 HISTORY: Shortness of breath COMPARISON: 03/19/2018. FINDINGS: LUNGS: Lungs are well inflated. There is multifocal subsegmental atelectasis in the lower lobes. PLEURA: No pleural effusions or pneumothorax. CARDIOVASCULAR: The heart is normal in size. No aortic atherosclerotic calcification present. OSSEOUS STRUCTURES: Within normal limits for the patient's age. VISUALIZED UPPER ABDOMEN: Normal. OTHER FINDINGS: None. IMPRESSION: No active pulmonary disease.
[2018-08-07 16:35] LABS: VENOUS BLOOD GAS BASE EXCESS 8.9 mmol/L (0.0-2.0); VENOUS BLOOD GAS PO2 76 mm/Hg (30-55); VENOUS BLOOD PH 7.41 (7.32-7.43)
[2018-08-07 18:22] LABS: PH,URINE 5.5 (4.7-8.0); URINE BILIRUBIN NEGATIVE (NEGATIVE); URINE BLOOD NEGATIVE (NEGATIVE); URINE COLOR LIGHT YELLOW (YELLOW); URINE GLUCOSE (UA) NEGATIVE (NEGATIVE); URINE LEUKOCYTE ESTERASE NEGATIVE Leu/uL (NEGATIVE); URINE PROTEIN NEGATIVE mg/dL (<30 mg/dL); URINE UROBILINOGEN 0.2 E.U./dL (<1 E.U./dL)
[2018-08-07 18:23] LABS: URINE APPEARANCE CLEAR (CLEAR)
[2018-08-07] MEDS ORDERED: Albuterol-Ipratrop 3 mg / 0.5 (3 ml) UD IH PRN (20:13)
--- NOTE | 2018-08-07 20:37 | CARD ---
APPROVED REPORT Date of service: 08/07/2018 EKG Measurement Heart [id number] <Conclusion> Normal Sinus rhythm Left axis deviation Incomplete right bundle branch block Inferior infarct, age undetermined Abnormal ECG
[2018-08-07 21:36] VITALS: BMI 25.8
[2018-08-07] MEDS ORDERED: Pneumococcal 23-Valent Vaccine IM ONE (21:37)
[2018-08-07] MEDS ORDERED: Influenza Vaccine 60 mcg/0.5 mL SYR (4YR UP) IM ONE (21:37)
[2018-08-07] MEDS: MethylPREDNISolone 40 mg Vial IV SCH (22:35)
[2018-08-07] MEDS: oxyCODONE 20 mg ER Tab (oxyCONTIN) PO SCH (22:37)
[2018-08-08] MEDS ORDERED: Albuterol-Ipratrop 3 mg / 0.5 (3 ml) UD IH SCH (02:00)
[2018-08-08] MEDS: MethylPREDNISolone 40 mg Vial IV SCH ×3 (05:35→22:01)
[2018-08-08] MEDS: Pantoprazole 40 mg EC Tab PO SCH (09:03)
[2018-08-08] MEDS: oxyCODONE 10 mg Immediate Release Tab PO PRN (09:03)
[2018-08-08] MEDS: Potassium Chloride 10 mEq ER Tab PO SCH (09:03)
[2018-08-08] MEDS: cefTRIAXone 1 gm 1 GM/100 ML BAG IVPB SCH (09:04)
[2018-08-08] MEDS: Azithromycin 500MG/NS 250ml 500 MG/250 ML BAG IVPB SCH (09:06)
--- NOTE | 2018-08-08 11:18 | CP.PCM.APN ---
Subjective - Date & Time of Evaluation Date of Evaluation: 08/08/18 Time of Evaluation: 09:15 - Subjective Subjective: pt seen and examined at bedside , states he feels much better after BIPAP and lasix and soulmedrol treatment he recevied . States he is abl to breathe much better. Review of Systems - Constitutional Constitutional: absent: As Per HPI, Anorexia, Chills, Daytime Sleepiness, Excessive Sweating, Fatigue, Fever, Frequent Falls, Headache, Increased Appetite, Lethargy, Malaise, Night Sweats, Snoring, Sleep Apnea, Weight Gain, Weight Loss, Weakness, Other - Cardiovascular Cardiovascular: absent: As Per HPI, Acrocyanosis, Chest Pain, Chest Pain at Rest, Chest Pain with Activity, Claudication, Diaphoresis, Dyspnea, Dyspnea on Exertion, Edema, Irregular Heart Rhythm, Pain Radiating to Arm/Neck/Jaw, Leg Edema, Leg Ulcers, Lightheadedness, Orthopnea, Palpitations, Paroxysmal Nocturnal Dyspnea, Pedal Edema, Radiating Pain, Rapid Heart Rate, Slow Heart Rate, Syncope, Other - Respiratory Respiratory: Dyspnea Objective - Vital Signs/Intake and Output Vital Signs (last 24 hours): Temp Pulse Resp BP Pulse Ox 98.0 F 100 H 20 117/59 L 98 08/08/18 06:00 08/08/18 10:00 08/08/18 06:00 08/08/18 09:04 08/08/18 06:00 Intake and Output: 08/08/18 08/08/18 06:59 18:59 Intake Total 260 260 Output Total 720 720 Balance -460 -460 - Medications Medications: Current Medications Albuterol/Ipratropium (Duoneb 3 Mg/0.5 Mg (3 Ml) Ud) 3 ml IH [id number] REPLACED BY [facility] Last Admin: 08/08/18 08:49 Dose: 3 ml Albuterol/Ipratropium (Duoneb 3 Mg/0.5 Mg (3 Ml) Ud) 3 ml IH Q2H PRN PRN Reason: Shortness of Breath Alprazolam (Xanax) 0.5 mg PO BID REPLACED BY [facility]; Protocol Last Admin: 08/08/18 09:02 Dose: 0.5 mg Aspirin (Ecotrin) 81 mg PO DAILY REPLACED BY [facility] Last Admin: 08/08/18 09:03 Dose: 81 mg Atorvastatin Calcium (Lipitor) 10 mg PO DAILY REPLACED BY [facility] Last Admin: 08/08/18 09:03 Dose: 10 mg Furosemide (Lasix) 40 mg IVP DAILY REPLACED BY [facility] Last Admin: 08/08/18 09:04 Dose: 40 mg Ceftriaxone Sodium (Rocephin 1 Gram Ivpb) 1 gm in 100 mls @ 100 mls/hr IVPB DAILY REPLACED BY [facility]; Protocol Last Admin: 08/08/18 09:04 Dose: 100 mls/hr Azithromycin (Zithromax 500mg In Ns) 500 mg in 250 mls @ 167 mls/hr IVPB DAILY REPLACED BY [facility]; Protocol Last Admin: 08/08/18 09:06 Dose: 167 mls/hr Methylprednisolone (Solu-Medrol) 40 mg IV Q8 REPLACED BY [facility] Last Admin: 08/08/18 05:35 Dose: 40 mg Oxycodone HCl (Oxycontin Extended Release Tab) 20 mg PO Q12 ERNESTINA Last Admin: 08/07/18 22:37 Dose: 20 mg Oxycodone HCl (Oxycodone Immediate Release Tab) 10 mg PO BID PRN PRN Reason: moderate pain (4-7) Last Admin: 08/08/18 09:03 Dose: 10 mg Pantoprazole Sodium (Protonix Ec Tab) 40 mg PO DAILY REPLACED BY [facility] Last Admin: 08/08/18 09:03 Dose: 40 mg Potassium Chloride (Klor-Con 10) 10 meq PO DAILY REPLACED BY [facility] Last Admin: 08/08/18 09:03 Dose: 10 meq - Labs Labs: 08/07/18 12:50 08/07/18 12:50 PT 10.2 SECONDS (9.4-12.5) 08/07/18 12:50 INR 0.89 08/07/18 12:50 APTT 24.7 Seconds (25.1-36.5) L 08/07/18 12:50 - Constitutional Appears: Non-toxic, No Acute Distress - Head Exam Head Exam: NORMOCEPHALIC - Eye Exam Eye Exam: Normal appearance Pupil Exam: NORMAL ACCOMODATION - Respiratory Exam Respiratory Exam: Decreased Breath Sounds, Rhonchi, Wheezes - Cardiovascular Exam Cardiovascular Exam: Irregular Rhythm, +S1, +S2 - GI/Abdominal Exam GI & Abdominal Exam: Soft - Extremities Exam Extremities Exam: Full ROM, Normal Capillary Refill - Neurological Exam Neurological Exam: Alert, Awake - Skin Skin Exam: Dry, Intact Assessment and Plan - Assessment and Plan (Free Text) Plan: 58 yr ol white male with pmh sig for advanced copd on 3l home o2, afib, chf/ dilated cm, mi, htn chronic back pain admitted with worsening LE edema, sob and cough s/p BIPAP treatment now for futher mgmt and treatment with cardiac and pul consultation on board #advanced copd/ resp insufficieny iV solumerol 40 q8 douneb #Leukocytosis iv rocephin and zithro #parox afib cardiology consultation tele monitoring # htn continue present mgmt Pt states he has 3l O2 at home but does not have BIPAP. will discuss with PMD will continue to monitor clinical status BPCI/TIC - BPCIA/TIC Educated pt/family on BPCIA/CIR/Med to Bed Programs: Yes Flyers given, including CMS Beneficiary letter: Yes Pt/family verbalized understanding & agreed to program: Yes
[2018-08-08] MEDS: oxyCODONE 20 mg ER Tab (oxyCONTIN) PO SCH ×2 (12:01→22:02)
[2018-08-08] MEDS ORDERED: Levalbuterol 0.63 MG/3 ML Inhal Soln UD IH PRN (12:04)
[2018-08-08] MEDS: Enoxaparin 40 mg Syringe SC SCH (13:40)
[2018-08-08] MEDS: Levalbuterol 0.63 MG/3 ML Inhal Soln UD IH SCH ×2 (13:48→19:34)
[2018-08-08] MEDS: diltiaZEM IVPB 100mg in NS 100 ML IV PRN (15:53)
--- NOTE | 2018-08-08 20:40 | CON ---
DATE OF CONSULTATION: 08/08/2018 LOCATION: The patient is in room 271, bed 1. REASON FOR CONSULTATION: Shortness of breath, exacerbation of COPD, respiratory tract infection, atrial fibrillation, hypertension, history of cardiomyopathy. HISTORY OF PRESENT ILLNESS: The patient is a 58-year-old who is known to have cardiomyopathy in the past, which he showed improvement later on; COPD; hypertension; chronic back pain due to spinal problems; history of atrial fibrillation, status post radiofrequency ablation; admitted with the history that last few days, he started having cough with whitish expectoration, but last 2 days, his cough came to the yellow expectoration and increasing shortness of breath every day, but last 2 days, it became much more marked shortness of breath. The patient also noticed some swelling and redness on the lower legs. The patient denies chest pain, denies palpitation, denies fever and chills. PAST MEDICAL HISTORY: Significant for COPD; atrial fibrillation, radiofrequency ablation in 06/2017, status post cardiac catheterization, which showed nonobstructive coronary artery disease. Once the patient was admitted with non-STEMI and probably had thrombus from LV event to the coronary. Later on, the patient showed improvement in the LV function. This cath was done in 11/2013, when the patient was admitted with a non-STEMI, history of COPD, history of sepsis, history of back pain with history of kyphoplasty. PREVIOUS CARDIAC WORKUP: The patient had cardiac catheterization in 11/2013, which showed normal coronaries. Cardiomyopathy was secondary to probably thrombus in the coronary, possibility. Later on, MUGA scan showed ejection fraction significantly improved to 54%. As mentioned before, the patient has presented with non-STEMI at that time, most likely secondary to thrombus, went from LV to the coronaries, then serial MUGA scan was done in 04/2014, which showed ejection fraction of 65%. In 10/2013, it showed 54% ejection fraction. Most recent echo was done on 06/01/2017, that showed borderline LV function, which was within normal limits and mild pulmonary hypertension. Last echo done at [facility] was 09/08/2017, read by Dr. Beltre, which showed systolic function borderline, RV systolic function moderately reduced, mild tricuspid regurg, [id number] pulmonary hypertension, ejection fraction around about 48%, RVSP about 47 mmHg. PERSONAL HISTORY: Denies smoking. Denies drinking. LIST OF HOME MEDICATIONS: The patient was on prednisone 5 mg b.i.d, oxycodone for pain, sotalol 80 mg b.i.d., potassium 10 mEq daily, Protonix 40 daily, Lovenox 40 mg subcutaneous daily, Pulmicort Respules, Xanax 0.5 b.i.d. REVIEW OF SYSTEMS: All the systems were reviewed, positive as mentioned in the history, otherwise, negative. PHYSICAL EXAMINATION: VITAL SIGNS: Blood pressure 115/79, respirations 20, pulse 100, temperature 98. HEENT: Head is normocephalic. Eyes: Pupils normal. Conjunctivae normal. Nose and throat: Normal. NECK: JVP low. Carotids equal. THORAX: AP diameter normal. LUNGS: Bilateral scattered rhonchi and rales. CARDIOVASCULAR: S1 and S2. ABDOMEN: Protuberant. No organomegaly. EXTREMITIES: The patient's redness and swelling of the legs have improved compared to last night as the patient received Lasix. LABORATORY DATA: Chest x-ray: No significant abnormality. EKG shows sinus rhythm, possible old inferior wall NE, and incomplete right bundle-branch block. WBC 14.4, hemoglobin 13.6, hematocrit 42.8, platelets 187. Sodium 140, potassium 4.6, BUN 20, creatinine 0.7. Troponin 0.02 AST and ALT normal. Calcium 9.6. Magnesium 2.2. Total protein and albumin normal. DIAGNOSES: Exacerbation of chronic obstructive pulmonary disease; history of right heart dysfunction; [id number] pulmonary hypertension; lesser ejection fraction; history of cardiomyopathy in the past, which showed later some improvement; history of chronic atrial fibrillation, status post radiofrequency ablation; hyperlipidemia; history of hypertension; history of anemia; back pain; kyphoplasty of spine. PLAN: We will continue sotalol 80 mg b.i.d. We will change the nebulizer therapy to Xopenex, aspirin 81 mg daily, potassium 10 daily, furosemide 40 IV daily, atorvastatin 10 daily, Lovenox 40 mg subcutaneous daily, ceftriaxone 1 g IV daily, methylprednisolone 40 mg IV every 8 hours, Xanax 0.5 b.i.d., and we will follow with you. Shaila Resendez MD
--- NOTE | 2018-08-08 22:30 | PN ---
DATE: 08/08/2018 SUBJECTIVE: The patient is a 58-year-old, seen and examined, doing much better. No shortness of breath. PHYSICAL EXAMINATION VITAL SIGNS: He is afebrile. Pulse 80, respirations 18, blood pressure . LUNGS: Bilateral diffusely decreased breath sounds. HEART: S1 and S2 audible. ABDOMEN: Soft, obese, nontender. No rebound, no guarding. NEUROLOGICAL: The patient is awake, alert, oriented, communicative, moves all extremities. ASSESSMENT: 1. Chronic obstructive pulmonary disease exacerbation. 2. Hypertension, currently hypotension. 3. Chronic atrial fibrillation, status post ablation, currently in sinus rhythm. 4. Degenerative disk disease, status post multiple kyphoplasties. PLAN: Currently, the patient is on IV antibiotics and IV steroids. He is on Cardizem drip. We will monitor his electrolytes in a.m. We will follow up the patient. Ross Bowman MD
[2018-08-09] MEDS: Levalbuterol 0.63 MG/3 ML Inhal Soln UD IH SCH ×4 (01:52→19:57)
[2018-08-09] MEDS: diltiaZEM IVPB 100mg in NS 100 ML IV PRN (02:05)
[2018-08-09] MEDS: Pantoprazole 40 mg EC Tab PO SCH ×2 (06:49→06:53)
[2018-08-09] MEDS: MethylPREDNISolone 40 mg Vial IV SCH ×3 (06:49→21:43)
[2018-08-09 07:12] LABS: GRAN # 9.91 (1.4-6.5); GRAN % 91.5 % (50.0-68.0); HEMOGLOBIN 12.5 g/dL (14.0-18.0); LYMPH # 0.5 (1.2-3.4); LYMPH % 4.3 % (22.0-35.0); MEAN CELL VOLUME 87.9 fl (80.0-105.0); MEAN CORPUSCULAR HGB CONC 31.9 g/dl (31.0-37.0); MEAN PLATELET VOLUME 10.2 fl (7.0-11.0); MONO # 0.5 (0.1-0.6); MONO % 4.2 % (1.0-6.0); PLATELET COUNT 189 10^3/uL (120.0-450.0); RBC 4.46 10^6/uL (3.5-6.1); RED CELL DISTRIBUTION WIDTH 13.8 % (11.5-14.5); WHITE BLOOD COUNT 10.8 10^3/uL (4.5-11.0)
[2018-08-09 07:37] LABS: ALB/GLOB RATIO 1.4 (1.1-1.8); ALT/SGPT 34 U/L (7-56); AST/SGOT 19 U/L (17-59); BLOOD UREA NITROGEN 21 mg/dL (7-21); CALCIUM 9.8 mg/dL (8.4-10.5); GFR NON-AFRICAN AMERICAN > 60
[2018-08-09 08:05] LABS: ATYPICAL LYMPHOCYTE 3 % (0.0-0.0); BAND 2 % (0-2); LYMPHOCYTE 1 % (22.0-35.0); MONOCYTE 0 % (1.0-6.0); NEUTROPHIL 94 % (50.0-70.0); PLATELET ESTIMATE NORMAL (NORMAL)
--- NOTE | 2018-08-09 08:43 | CP.PCM.PN ---
Subjective - Date & Time of Evaluation Date of Evaluation: 08/09/18 Time of Evaluation: 06:45 - Subjective Subjective: Awake, alert, no distress, feels better Reason for consultation and follow up: Cardiac evaluation of shortness of breath,exacerbation of COPD, rapid ventricular rate atrial fibrillation, Seen and examined by me and Dr. Samuel Objective - Vital Signs/Intake and Output Vital Signs (last 24 hours): Temp Pulse Resp BP Pulse Ox 97.5 F L 67 18 95/65 L 94 L 08/09/18 05:53 08/09/18 05:53 08/09/18 05:53 08/09/18 05:53 08/09/18 05:53 Intake and Output: 08/09/18 08/09/18 06:59 18:59 Intake Total 2620 Output Total 3250 Balance -630 - Medications Medications: Current Medications Alprazolam (Xanax) 0.5 mg PO BID [facility]; Protocol Last Admin: 08/08/18 17:58 Dose: 0.5 mg Aspirin (Ecotrin) 81 mg PO DAILY [facility] Last Admin: 08/08/18 09:03 Dose: 81 mg Atorvastatin Calcium (Lipitor) 10 mg PO DAILY [facility] Last Admin: 08/08/18 09:03 Dose: 10 mg Enoxaparin Sodium (Lovenox) 40 mg SC DAILY [facility]; Protocol Last Admin: 08/08/18 13:40 Dose: 40 mg Furosemide (Lasix) 40 mg IVP DAILY [facility] Last Admin: 08/08/18 09:04 Dose: 40 mg Ceftriaxone Sodium (Rocephin 1 Gram Ivpb) 1 gm in 100 mls @ 100 mls/hr IVPB DAILY [facility]; Protocol Last Admin: 08/08/18 09:04 Dose: 100 mls/hr Azithromycin (Zithromax 500mg In Ns) 500 mg in 250 mls @ 167 mls/hr IVPB DAILY [facility]; Protocol Last Admin: 08/08/18 09:06 Dose: 167 mls/hr diltiaZEM IVPB 100mg in NS (Cardizem 100mg In Ns) 100 mls @ 10 mls/hr IV .Q10H PRN; Protocol PRN Reason: TITRATE PER MD ORDER Last Admin: 08/09/18 02:05 Dose: 10 mg/hr, 10 mls/hr Levalbuterol HCl (Xopenex) 0.63 mg IH Q2 PRN PRN Reason: Shortness of Breath Levalbuterol HCl (Xopenex) 0.63 mg IH [id number] [facility] Last Admin: 08/09/18 08:31 Dose: 0.63 mg Methylprednisolone (Solu-Medrol) 40 mg IV Q8 [facility] Last Admin: 08/09/18 06:49 Dose: 40 mg Oxycodone HCl (Oxycontin Extended Release Tab) 20 mg PO Q12 [facility] Last Admin: 08/08/18 22:02 Dose: 20 mg Oxycodone HCl (Oxycodone Immediate Release Tab) 10 mg PO BID PRN PRN Reason: moderate pain (4-7) Last Admin: 08/08/18 09:03 Dose: 10 mg Pantoprazole Sodium (Protonix Ec Tab) 40 mg PO 0600 [facility] Last Admin: 08/09/18 06:53 Dose: Not Given Potassium Chloride (Klor-Con 10) 10 meq PO DAILY [facility] Last Admin: 08/08/18 09:03 Dose: 10 meq Sotalol HCl (Betapace) 80 mg PO BID [facility] Last Admin: 08/08/18 17:59 Dose: 80 mg Verapamil HCl (Verapamil Inj) 5 mg IVP Q6 PRN PRN Reason: Heart rate Last Admin: 08/08/18 12:19 Dose: 5 mg - Labs Labs: 08/09/18 06:30 08/09/18 06:30 PT 10.2 SECONDS (9.4-12.5) 08/07/18 12:50 INR 0.89 08/07/18 12:50 APTT 24.7 Seconds (25.1-36.5) L 08/07/18 12:50 - Constitutional Appears: Non-toxic, No Acute Distress - Head Exam Head Exam: NORMAL INSPECTION, NORMOCEPHALIC - Eye Exam Eye Exam: Normal appearance Pupil Exam: NORMAL ACCOMODATION - ENT Exam ENT Exam: Mucous Membranes Moist, Normal Exam - Respiratory Exam Respiratory Exam: Decreased Breath Sounds, Wheezes, NORMAL BREATHING PATTERN - Cardiovascular Exam Cardiovascular Exam: REGULAR RHYTHM, +S1, +S2 - GI/Abdominal Exam GI & Abdominal Exam: Soft, Normal Bowel Sounds - Extremities Exam Extremities Exam: Full ROM Additional comments: 1+edema - Neurological Exam Neurological Exam: Alert, Awake, Oriented x3 - Psychiatric Exam Psychiatric exam: Normal Affect, Normal Mood - Skin Skin Exam: Dry, Normal Color, Warm Assessment and Plan - Assessment and Plan (Free Text) Assessment: A 58 year olf male who came in to the ER due to shortness of breath. History of COPD, chronic atrial fibrillation, radiofrequency ablation 06/2017, hypertension,chronic back pain with kyphoplasty, Non-STEMI, non-obstructive coronary artery disease, cardiomyopathy,LVEF 48% from Echo last 09/08/2017. Admitted for exacerbation of COPD. Had episode of rapid atrial fibrillation, Cardizem bolus given and started on Cardizem drip. Heart rate controlled, switch IV cardizem to oral. Plan: Feels much better Wheezing, nebulizer treatment as ordered Heart rate controlled to 60-70's, normal sinus rhthym On Cardizem IV drip, will discontinue IV and switch to oral Blood pressure controlled On ASA 81 mg daily. Lasix 40 mg daily,Solumedrol 40 mg every 8 hours Potassium chloride 10 meq daily, Sotalol 80 mg BID Continue current treatment Continue IV antibiotics as ordered Will follow up Plan and treatment discussed with Dr. Samuel
--- NOTE | 2018-08-09 10:02 | CP.PCM.APN ---
Subjective - Date & Time of Evaluation Date of Evaluation: 08/09/18 Time of Evaluation: 09:00 - Subjective Subjective: pt seen asleep in bed , NAD Review of Systems - Constitutional Constitutional: absent: As Per HPI, Anorexia, Chills, Daytime Sleepiness, Excessive Sweating, Fatigue, Fever, Frequent Falls, Headache, Increased Appetite, Lethargy, Malaise, Night Sweats, Snoring, Sleep Apnea, Weight Gain, Weight Loss, Weakness, Other - Respiratory Respiratory: Dyspnea on Exertion Objective - Vital Signs/Intake and Output Vital Signs (last 24 hours): Temp Pulse Resp BP Pulse Ox 97.5 F L 67 18 95/65 L 94 L 08/09/18 05:53 08/09/18 05:53 08/09/18 05:53 08/09/18 05:53 08/09/18 05:53 Intake and Output: 08/09/18 08/09/18 06:59 18:59 Intake Total 2620 Output Total 3250 Balance -630 - Medications Medications: Current Medications Alprazolam (Xanax) 0.5 mg PO BID [facility]; Protocol Last Admin: 08/08/18 17:58 Dose: 0.5 mg Aspirin (Ecotrin) 81 mg PO DAILY [facility]S [facility] Last Admin: 08/08/18 09:03 Dose: 81 mg Atorvastatin Calcium (Lipitor) 10 mg PO DAILY [facility]S [facility] Last Admin: 08/08/18 09:03 Dose: 10 mg Diltiazem HCl (Cardizem) 30 mg PO TID [facility]S [facility] Enoxaparin Sodium (Lovenox) 40 mg SC DAILY [facility]S AT [facility]; Protocol Last Admin: 08/08/18 13:40 Dose: 40 mg Furosemide (Lasix) 40 mg IVP DAILY [facility] Last Admin: 08/08/18 09:04 Dose: 40 mg Ceftriaxone Sodium (Rocephin 1 Gram Ivpb) 1 gm in 100 mls @ 100 mls/hr IVPB DAILY [facility]S [facility]; Protocol Last Admin: 08/08/18 09:04 Dose: 100 mls/hr Azithromycin (Zithromax 500mg In Ns) 500 mg in 250 mls @ 167 mls/hr IVPB DAILY [facility]S [facility]; Protocol Last Admin: 08/08/18 09:06 Dose: 167 mls/hr Levalbuterol HCl (Xopenex) 0.63 mg IH Q2 PRN PRN Reason: Shortness of Breath Levalbuterol HCl (Xopenex) 0.63 mg IH [id number] [facility] 234 B[facility]S [facility] Last Admin: 08/09/18 08:31 Dose: 0.63 mg Methylprednisolone (Solu-Medrol) 40 mg IV Q8 [facility] 234 [facility]S AT [facility] Last Admin: 08/09/18 06:49 Dose: 40 mg Oxycodone HCl (Oxycontin Extended Release Tab) 20 mg PO Q12 [facility]S [facility] Last Admin: 08/08/18 22:02 Dose: 20 mg Oxycodone HCl (Oxycodone Immediate Release Tab) 10 mg PO BID PRN PRN Reason: moderate pain (4-7) Last Admin: 08/08/18 09:03 Dose: 10 mg Pantoprazole Sodium (Protonix Ec Tab) 40 mg PO 0600 [facility] Last Admin: 08/09/18 06:53 Dose: Not Given Potassium Chloride (Klor-Con 10) 10 meq PO DAILY [facility]S [facility] Last Admin: 08/08/18 09:03 Dose: 10 meq Sotalol HCl (Betapace) 80 mg PO BID [facility] 234 [facility]S [facility] Last Admin: 08/08/18 17:59 Dose: 80 mg Verapamil HCl (Verapamil Inj) 5 mg IVP Q6 PRN PRN Reason: Heart rate Last Admin: 08/08/18 12:19 Dose: 5 mg - Labs Labs: 08/09/18 06:30 08/09/18 06:30 PT 10.2 SECONDS (9.4-12.5) 08/07/18 12:50 INR 0.89 08/07/18 12:50 APTT 24.7 Seconds (25.1-36.5) L 08/07/18 12:50 - Constitutional Appears: No Acute Distress - Head Exam Head Exam: NORMAL INSPECTION, NORMOCEPHALIC - Eye Exam Eye Exam: Normal appearance, PERRL - ENT Exam ENT Exam: Mucous Membranes Moist - Respiratory Exam Respiratory Exam: Decreased Breath Sounds, NORMAL BREATHING PATTERN - Cardiovascular Exam Cardiovascular Exam: Irregular Rhythm, +S1, +S2 - GI/Abdominal Exam GI & Abdominal Exam: Normal Bowel Sounds - Extremities Exam Extremities Exam: Normal Inspection - Back Exam Back Exam: NORMAL INSPECTION - Neurological Exam Neurological Exam: Alert, Awake, Oriented x3 - Psychiatric Exam Psychiatric exam: Normal Affect, Normal Mood - Skin Skin Exam: Dry, Intact Assessment and Plan - Assessment and Plan (Free Text) Plan: 58 yr ol white male with pmh sig for advanced copd on 3l home o2, afib, chf/ dilated cm, mi, htn chronic back pain admitted with worsening LE edema, sob and cough s/p BIPAP treatment now for futher mgmt and treatment with cardiac consultation on board #advanced copd/ resp insufficieny iV solumerol 40 q8 - roberta tapered douneb changed to Xopenex due to high heart rate Pt states he has 3l O2 at home but does not have BIPAP. #Leukocytosis iv rocephin and zithro will monitor for prolonged QT #parox afib - episode of rapid afib cardiology consultation with Dr Samuel spoke to Dr Samuel re medication regimen Pt had rapid afib overnight and was on cardizem drip - now converted to PO will monitor as pt now on cardizem and betapce # htn continue present mgmt stable will discuss with PMD will continue to monitor clinical status BPCI/TIC - BPCIA/TIC Educated pt/family on BPCIA/CIR/Med to Bed Programs: Yes Flyers given, including [facility] Beneficiary letter: Yes Pt/family verbalized understanding & agreed to program: Yes
[2018-08-09] MEDS: Potassium Chloride 10 mEq ER Tab PO SCH (10:44)
[2018-08-09] MEDS: Enoxaparin 40 mg Syringe SC SCH (10:44)
[2018-08-09] MEDS: cefTRIAXone 1 gm 1 GM/100 ML BAG IVPB SCH (10:45)
[2018-08-09] MEDS: Azithromycin 500MG/NS 250ml 500 MG/250 ML BAG IVPB SCH (10:46)
[2018-08-09] MEDS: oxyCODONE 20 mg ER Tab (oxyCONTIN) PO SCH ×2 (12:05→21:41)
--- NOTE | 2018-08-09 16:56 | PN ---
DATE: 08/09/2018 LOCATION: Room 271, Bed 1. SUBJECTIVE: The patient was admitted with shortness of breath, cough and yellowish expectoration. The patient's breathing in the last few days gradually got worse and that he went into respiratory distress. The patient has a known case of COPD, atrial fibrillation, had radiofrequency ablation in 06/2017. Cardiac catheterization had shown nonobstructive coronary artery disease. Once the patient was admitted with non-STEMI, probably had thrombus from LV went to the coronaries and caused non-STEMI. Later on, the patient showed improvement and initially LV ejection fraction was low consistent with cardiomyopathy but later on it showed improvement. Catheterization was done in 11/2013 when the patient was admitted with non-STEMI, COPD, sepsis, history of back pain with history of kyphoplasty. Detailed cardiac workup has been mentioned in my consult of 08/08/2018. Most recent echo done on 06/01/2017 showed ejection fraction around 40. Last echo was done on 09/08/2017 and it showed LV ejection fraction of 48% with RVSP about 47 mmHg, mild tricuspid regurge, mild to moderate pulmonary hypertension. The patient is on antibiotics, IV Lasix and he shows improvement. He is less short of breath. His swelling of legs also is improving, and we will continue hand nebulizer therapy and Sotalol 80 b.i.d., Xopenex, and aspirin 81 daily, potassium 10 daily, furosemide 40 IV daily, atorvastatin 10 daily, Lovenox 40 mg subcu daily, ceftriaxone 1 g IV, methylprednisolone 40 mg IV every 8 hours, Xanax 0.5 b.i.d. The patient yesterday went into rapid atrial fibrillation, was given Cardizem drip. Today's heart rate is between 60 and 70. We are going to switch to Cardizem 30 mg p.o. t.i.d. along with Sotalol 80 b.i.d. Since the patient has atrial fibrillation, we will put him back on Eliquis 5 b.i.d. and will stop Lovenox, the patient is already on aspirin also. We will monitor closely. The patient still has wheezing. We will follow with you. Shaila Resendez MD
--- NOTE | 2018-08-09 22:54 | PN ---
DATE: 08/09/2018 SUBJECTIVE: The patient is a 58-year-old, seen and examined. He states that he feels a lot better, still short of breath. He was on Cardizem drip, switched to p.o. PHYSICAL EXAMINATION GENERAL: He is awake, alert, oriented and communicative. VITAL SIGNS: He is afebrile. Pulse 72, respirations 18, blood pressure 121/73. LUNGS: Bilateral few occasional expiratory rhonchi. HEART: S1, S2 audible. ABDOMEN: Soft, nontender. No rebound, no guarding. NEUROLOGIC: The patient is awake, alert, oriented and communicative. Moves all extremities. EXTREMITIES: Bilateral legs, +1 edema. LABORATORY DATA: WBC 10.8, hemoglobin 12.5, hematocrit 39.2, platelets 189. Chemistry: Sodium 136, potassium 5, chloride 93, CO2 of 37, BUN 21, creatinine 0.6, blood sugar 143. Blood cultures are negative. ASSESSMENT: 1. Chronic obstructive pulmonary disease exacerbation. 2. Congestive heart failure exacerbation. 3. Bronchitis. 4. Chronic anemia. 5. Degenerative disk disease, status post multiple . PLAN: The patient is on sotalol. He is on Cardizem 30 mg three times a day. He has been started on Eliquis. Analgesic as needed. We will request therapy. Ross Bowman MD
[2018-08-09] MEDS: Levalbuterol 0.63 MG/3 ML Inhal Soln UD IH PRN (23:44)
[2018-08-10] MEDS: Levalbuterol 0.63 MG/3 ML Inhal Soln UD IH SCH ×3 (01:07→13:34)
[2018-08-10] MEDS: Pantoprazole 40 mg EC Tab PO SCH (06:06)
[2018-08-10 06:52] LABS: MEAN CELL VOLUME 88.2 fl (80.0-105.0); MEAN CORPUSCULAR HEMOGLOBIN 27.7 pg (25.0-35.0); MEAN CORPUSCULAR HGB CONC 31.4 g/dl (31.0-37.0); RBC 4.33 10^6/uL (3.5-6.1); RED CELL DISTRIBUTION WIDTH 13.9 % (11.5-14.5); WHITE BLOOD COUNT 11.7 10^3/uL (4.5-11.0)
--- NOTE | 2018-08-10 07:27 | CP.PCM.PN ---
Subjective - Date & Time of Evaluation Date of Evaluation: 08/10/18 Time of Evaluation: 06:30 - Subjective Subjective: Awake, alert, slight shortness of breath on exertion Reason for consultation and follow up: Cardiac evaluation of shortness of breath ,exacerbation of COPD, rapid ventricular rate atrial fibrillation, Seen and examined by me and Dr. Samuel Objective - Vital Signs/Intake and Output Vital Signs (last 24 hours): Temp Pulse Resp BP Pulse Ox 97.6 F 77 21 100/67 94 L 08/10/18 06:00 08/10/18 06:00 08/10/18 06:00 08/10/18 06:00 08/10/18 06:00 Intake and Output: 08/10/18 08/10/18 06:59 18:59 Intake Total 360 Output Total 675 Balance -315 - Medications Medications: Current Medications Alprazolam (Xanax) 0.5 mg PO BID [facility]; Protocol Last Admin: 08/09/18 18:32 Dose: 0.5 mg Apixaban (Eliquis) 5 mg PO BID [facility]; Protocol Last Admin: 08/09/18 17:35 Dose: Not Given Aspirin (Ecotrin) 81 mg PO DAILY [facility] Last Admin: 08/09/18 10:44 Dose: 81 mg Atorvastatin Calcium (Lipitor) 10 mg PO DAILY [facility] Last Admin: 08/09/18 10:44 Dose: 10 mg Azithromycin (Zithromax) 500 mg PO DAILY [facility] Cefpodoxime Proxetil (Vantin) 200 mg PO Q12 [facility] Stop: 08/13/18 10:01 Diltiazem HCl (Cardizem) 30 mg PO TID [facility] Last Admin: 08/09/18 17:28 Dose: 30 mg Furosemide (Lasix) 40 mg IVP DAILY [facility] Last Admin: 08/09/18 13:55 Dose: 40 mg Levalbuterol HCl (Xopenex) 0.63 mg IH Q2 PRN PRN Reason: Shortness of Breath Last Admin: 08/09/18 23:44 Dose: 0.63 mg Levalbuterol HCl (Xopenex) 0.63 mg IH [id number] [facility] Last Admin: 08/10/18 01:07 Dose: 0.63 mg Methylprednisolone (Solu-Medrol) 40 mg IV Q12 [facility] Last Admin: 08/09/18 21:43 Dose: 40 mg Oxycodone HCl (Oxycontin Extended Release Tab) 20 mg PO Q12 [facility] Last Admin: 08/09/18 21:41 Dose: 20 mg Oxycodone HCl (Oxycodone Immediate Release Tab) 10 mg PO BID PRN PRN Reason: moderate pain (4-7) Last Admin: 08/08/18 09:03 Dose: 10 mg Pantoprazole Sodium (Protonix Ec Tab) 40 mg PO 0600 [facility] Last Admin: 08/10/18 06:06 Dose: 40 mg Potassium Chloride (Klor-Con 10) 10 meq PO DAILY [facility] Last Admin: 08/09/18 10:44 Dose: 10 meq Sotalol HCl (Betapace) 80 mg PO BID [facility] Last Admin: 08/09/18 17:29 Dose: 80 mg Verapamil HCl (Verapamil Inj) 5 mg IVP Q6 PRN PRN Reason: Heart rate Last Admin: 08/08/18 12:19 Dose: 5 mg - Labs Labs: 08/10/18 06:30 08/09/18 06:30 PT 10.2 SECONDS (9.4-12.5) 08/07/18 12:50 INR 0.89 08/07/18 12:50 APTT 24.7 Seconds (25.1-36.5) L 08/07/18 12:50 - Constitutional Appears: Non-toxic, No Acute Distress - Head Exam Head Exam: NORMAL INSPECTION, NORMOCEPHALIC - Eye Exam Eye Exam: Normal appearance Pupil Exam: NORMAL ACCOMODATION - ENT Exam ENT Exam: Mucous Membranes Moist, Normal Exam - Neck Exam Neck Exam: Full ROM - Respiratory Exam Respiratory Exam: Decreased Breath Sounds, Wheezes, NORMAL BREATHING PATTERN - Cardiovascular Exam Cardiovascular Exam: REGULAR RHYTHM, +S1, +S2 Additional comments: Telemetry NSR 70's - GI/Abdominal Exam GI & Abdominal Exam: Soft, Normal Bowel Sounds - Extremities Exam Extremities Exam: Full ROM, Normal Capillary Refill - Neurological Exam Neurological Exam: Alert, Awake, Oriented x3 - Psychiatric Exam Psychiatric exam: Normal Affect, Normal Mood - Skin Skin Exam: Dry, Normal Color, Warm Assessment and Plan - Assessment and Plan (Free Text) Assessment: A 58 year olf male who came in to the ER due to shortness of breath. History of COPD, chronic atrial fibrillation, radiofrequency ablation 06/2017, hypertension ,chronic back pain with kyphoplasty, Non-STEMI, non-obstructive coronary artery disease, cardiomyopathy,LVEF 48% from Echo last 09/08/2017. Admitted for exacerbation of COPD. Had episode of rapid atrial fibrillation, Cardizem bolus given and started on Cardizem drip. Heart rate controlled,converted to normal sinus rhythm.Cardizem drip discontinued and switched to oral cardizem. Plan: Slight shortness of breath on exertion, no distress Mild wheezing, on nasal cannula Continue nebulizer treatment Normal sinus rhythm on telemetry 70's, controlled Blood pressure controlled On ASA 81 mg daily. Lasix 40 mg daily,Solumedrol 40 mg every 8 hours Potassium chloride 10 meq daily, Sotalol 80 mg BID, Cardizem 30 mg TID Continue current treatment Continue IV antibiotics as ordered Will follow up Plan and treatment discussed with Dr. Samuel
[2018-08-10] MEDS: Cefpodoxime (Vantin) 200 mg Tab PO SCH ×2 (09:52→21:35)
[2018-08-10] MEDS: oxyCODONE 20 mg ER Tab (oxyCONTIN) PO SCH ×2 (09:53→21:36)
[2018-08-10] MEDS: MethylPREDNISolone 40 mg Vial IV SCH ×2 (09:54→21:34)
--- NOTE | 2018-08-10 10:03 | CP.PCM.APN ---
Subjective - Date & Time of Evaluation Date of Evaluation: 08/10/18 Time of Evaluation: 09:00 - Subjective Subjective: pt seen in bed, asleep but easily arousable Review of Systems - Cardiovascular Cardiovascular: absent: As Per HPI, Acrocyanosis, Chest Pain, Chest Pain at Rest, Chest Pain with Activity, Claudication, Diaphoresis, Dyspnea, Dyspnea on Exertion, Edema, Irregular Heart Rhythm, Pain Radiating to Arm/Neck/Jaw, Leg Edema, Leg Ulcers, Lightheadedness, Orthopnea, Palpitations, Paroxysmal Nocturnal Dyspnea, Pedal Edema, Radiating Pain, Rapid Heart Rate, Slow Heart Rate, Syncope, Other - Respiratory Respiratory: Dyspnea on Exertion Objective - Vital Signs/Intake and Output Vital Signs (last 24 hours): Temp Pulse Resp BP Pulse Ox 97.6 F 77 21 100/67 94 L 08/10/18 06:00 08/10/18 06:00 08/10/18 06:00 08/10/18 06:00 08/10/18 06:00 Intake and Output: 08/10/18 08/10/18 06:59 18:59 Intake Total 360 Output Total 675 Balance -315 - Medications Medications: Current Medications Alprazolam (Xanax) 0.5 mg PO BID [facility]; Protocol Last Admin: 08/09/18 18:32 Dose: 0.5 mg Aspirin (Ecotrin) 81 mg PO DAILY [facility] Last Admin: 08/09/18 10:44 Dose: 81 mg Atorvastatin Calcium (Lipitor) 10 mg PO DAILY [facility] Last Admin: 08/09/18 10:44 Dose: 10 mg Azithromycin (Zithromax) 500 mg PO DAILY [facility] Cefpodoxime Proxetil (Vantin) 200 mg PO Q12 [facility] Stop: 08/13/18 10:01 Diltiazem HCl (Cardizem) 30 mg PO TID [facility] Last Admin: 08/09/18 17:28 Dose: 30 mg Furosemide (Lasix) 40 mg IVP DAILY [facility] Last Admin: 08/09/18 13:55 Dose: 40 mg Levalbuterol HCl (Xopenex) 0.63 mg IH Q2 PRN PRN Reason: Shortness of Breath Last Admin: 08/09/18 23:44 Dose: 0.63 mg Levalbuterol HCl (Xopenex) 0.63 mg IH [id number] [facility] Last Admin: 08/10/18 08:09 Dose: 0.63 mg Methylprednisolone (Solu-Medrol) 40 mg IV Q12 [facility] Last Admin: 08/09/18 21:43 Dose: 40 mg Oxycodone HCl (Oxycontin Extended Release Tab) 20 mg PO Q12 [facility] Last Admin: 08/09/18 21:41 Dose: 20 mg Oxycodone HCl (Oxycodone Immediate Release Tab) 10 mg PO BID PRN PRN Reason: moderate pain (4-7) Last Admin: 08/08/18 09:03 Dose: 10 mg Pantoprazole Sodium (Protonix Ec Tab) 40 mg PO 0600 [facility] Last Admin: 08/10/18 06:06 Dose: 40 mg Sotalol HCl (Betapace) 80 mg PO BID [facility] Last Admin: 08/09/18 17:29 Dose: 80 mg Verapamil HCl (Verapamil Inj) 5 mg IVP Q6 PRN PRN Reason: Heart rate Last Admin: 08/08/18 12:19 Dose: 5 mg - Labs Labs: 08/10/18 06:30 08/09/18 06:30 PT 10.2 SECONDS (9.4-12.5) 08/07/18 12:50 INR 0.89 08/07/18 12:50 APTT 24.7 Seconds (25.1-36.5) L 08/07/18 12:50 - Constitutional Appears: Non-toxic, No Acute Distress - Head Exam Head Exam: NORMAL INSPECTION - Eye Exam Eye Exam: Normal appearance - Respiratory Exam Respiratory Exam: Decreased Breath Sounds - Cardiovascular Exam Cardiovascular Exam: REGULAR RHYTHM, +S1, +S2 - GI/Abdominal Exam GI & Abdominal Exam: Normal Bowel Sounds - Extremities Exam Extremities Exam: Normal Capillary Refill - Neurological Exam Neurological Exam: Alert, Awake, Oriented x3 - Psychiatric Exam Psychiatric exam: Normal Affect, Normal Mood - Skin Skin Exam: Dry, Intact Assessment and Plan - Assessment and Plan (Free Text) Plan: Current Medications Alprazolam (Xanax) 0.5 mg PO BID [facility]; Protocol Last Admin: 08/09/18 18:32 Dose: 0.5 mg Aspirin (Ecotrin) 81 mg PO DAILY [facility] Last Admin: 08/09/18 10:44 Dose: 81 mg Atorvastatin Calcium (Lipitor) 10 mg PO DAILY [facility] Last Admin: 08/09/18 10:44 Dose: 10 mg Azithromycin (Zithromax) 500 mg PO DAILY [facility] Cefpodoxime Proxetil (Vantin) 200 mg PO Q12 [facility] Stop: 08/13/18 10:01 Diltiazem HCl (Cardizem) 30 mg PO TID [facility] Last Admin: 08/09/18 17:28 Dose: 30 mg Furosemide (Lasix) 40 mg IVP DAILY [facility] Last Admin: 08/09/18 13:55 Dose: 40 mg Levalbuterol HCl (Xopenex) 0.63 mg IH Q2 PRN PRN Reason: Shortness of Breath Last Admin: 08/09/18 23:44 Dose: 0.63 mg Levalbuterol HCl (Xopenex) 0.63 mg IH [id number] [facility] Last Admin: 08/10/18 08:09 Dose: 0.63 mg Methylprednisolone (Solu-Medrol) 40 mg IV Q12 [facility] Last Admin: 08/09/18 21:43 Dose: 40 mg Oxycodone HCl (Oxycontin Extended Release Tab) 20 mg PO Q12 [facility] Last Admin: 08/09/18 21:41 Dose: 20 mg Oxycodone HCl (Oxycodone Immediate Release Tab) 10 mg PO BID PRN PRN Reason: moderate pain (4-7) Last Admin: 08/08/18 09:03 Dose: 10 mg Pantoprazole Sodium (Protonix Ec Tab) 40 mg PO 0600 [facility] Last Admin: 08/10/18 06:06 Dose: 40 mg Sotalol HCl (Betapace) 80 mg PO BID [facility] Last Admin: 08/09/18 17:29 Dose: 80 mg Verapamil HCl (Verapamil Inj) 5 mg IVP Q6 PRN PRN Reason: Heart rate Last Admin: 08/08/18 12:19 Dose: 5 mg All Active Problems Weakness (Acute) Acute bronchitis (Acute) Anemia (Acute) Atrial fibrillation with RVR (Acute) CHF (congestive heart failure) (Acute) COPD exacerbation (Acute) COPD exacerbation (Acute) Chest pain (Acute) Chronic obstructive pulmonary disease (Acute) Drug abuse (Acute) Drug dependence (Acute) Dyspnea (Acute) Fever (Acute) GI bleed (Acute) Hemoptysis (Acute) Hypoxia (Acute) Palpitations (Acute) Pneumonia (Acute) Respiratory arrest (Acute) Respiratory distress (Acute) Respiratory failure (Acute) 58 yr ol white male with pmh sig for advanced copd on 3l home o2, afib, chf/ dilated cm, mi, htn chronic back pain admitted with worsening LE edema, sob and cough s/p BIPAP treatment now for futher mgmt and treatment with cardiac consultation on board #advanced copd/ resp insufficieny iV solumerol 40 q8 - to be tapered douneb changed to Xopenex due to high heart rate Pt states he has 3l O2 at home but does not have BIPAP. #Leukocytosis iv rocephin and zithro will monitor for prolonged QT #parox afib - episode of rapid afib cardiology consultation with Dr Samuel spoke to Dr Samuel re medication regimen Pt had rapid afib overnight and was on cardizem drip - now converted to PO cardizem 30 TID will monitor as pt now on cardizem and betapace # htn continue present mgmt stable will discuss with PMD will continue to monitor clinical status physical therapy ordered and discussed with P.T. BPCI/TIC - BPCIA/TIC Flyers given, including CMS Beneficiary letter: Yes Pt/family verbalized understanding & agreed to program: Yes
--- NOTE | 2018-08-10 10:39 | PN ---
DATE: 08/10/2018 REASON FOR CONSULTATION: Followup cardiac evaluation, shortness of breath, exacerbation of COPD, paroxysmal atrial fibrillation, status post radiofrequency ablation, went into SVT and very shortly AFib, history of massive GI bleed, on Eliquis. The patient has torrential GI bleed from Eliquis on the last admission and requiring 5 to 6 units of packed RBC on the previous admissions. This note is an addition to the note dictated by the nurse practitioner, Jenny Castanon. The patient feels okay. No chest pain, no shortness of breath, no palpitation. Telemetry shows normal sinus. History of paroxysmal atrial fibrillation, history of radiofrequency ablation by Dr. Amador. Since then, the patient remained normal sinus. History of ablation 06/2017, hypertension, chronic back pain, kyphoplasty, non-STEMI, nonobstructive coronary artery disease, status post cardiac catheterization, decreased LV function, ejection 48%, later on EF improved. RECOMMENDATION: Switch over back to sotalol b.i.d. Continue Cardizem. Continue baby aspirin. The patient started on Eliquis because the patient going back and forth atrial fibrillation, but the patient has a history of GI bleed, so it was put on hold. We will follow. Once the patient is stabilized, we will send back to Dr. Amador followup, may need redo radiofrequency ablation. We will follow with you. Monitor electrolytes closely. Hold potassium because potassium today is 10. We will discontinue potassium because elevated potassium is secondary to supplemental potassium as well as methylprednisolone. So far now, we will discontinue potassium supplement and repeat lab in the morning. Thank you Dr. Bowman for providing us the opportunity in taking care of the patient, Demetrio Cano. Shaila Samuel MD
--- NOTE | 2018-08-10 16:08 | PN ---
DATE: 08/10/2018 SUBJECTIVE: The patient is 58 years old, seen and examined, gets short of breath on walking small distance, scanty cough, complains of back pain. PHYSICAL EXAMINATION: VITAL SIGNS: He is afebrile. Pulse 62, respirations 20, blood pressure 117/77. LUNGS: Bilateral expiratory rhonchi, more so in the left upper lung region. HEART: S1 and S2 audible. ABDOMEN: Soft, nontender. No rebound. No guarding. NEUROLOGIC: He is awake, alert, oriented, communicative. LABORATORY EXAM: WBC 11.7, hemoglobin 12, hematocrit 38.2, platelets 185. Chemistry: Sodium 136, potassium 5.0, chloride 93, CO2 of 37, BUN 21, creatinine 0.6, blood sugar of 143. Blood cultures are negative. ASSESSMENT: 1. Chronic obstructive pulmonary disease exacerbation. 2. Brief episode of atrial fibrillation, but currently, he is in sinus rhythm. 3. Degenerative disk disease. 4. Chronic back pain. 5. History of methadone dependence in the past. PLAN: I will taper down steroid, continue Betapace and Cardizem. Currently, he is in sinus rhythm. Encourage ambulation out of bed to chair. The patient does not want to go to TCU will discuss with physical therapist. Ross Bowman MD
[2018-08-10] MEDS: oxyCODONE 10 mg Immediate Release Tab PO PRN (17:33)
[2018-08-11] MEDS: Levalbuterol 0.63 MG/3 ML Inhal Soln UD IH SCH ×5 (02:50→19:51)
[2018-08-11] MEDS: Pantoprazole 40 mg EC Tab PO SCH (04:59)
[2018-08-11] MEDS: oxyCODONE 5 mg Immediate Release Tab PO PRN ×2 (04:59→20:02)
--- NOTE | 2018-08-11 07:44 | CP.PCM.PN ---
Subjective - Date & Time of Evaluation Date of Evaluation: 08/11/18 Time of Evaluation: 06:35 - Subjective Subjective: Awake, alert, feels better than yesterday Reason for consultation and follow up: Cardiac evaluation of shortness of breath,exacerbation of COPD, rapid ventricular rate atrial fibrillation, Seen and examined by me and Dr. Resendez Objective - Vital Signs/Intake and Output Vital Signs (last 24 hours): Temp Pulse Resp BP Pulse Ox 97.8 F 77 20 127/75 95 08/11/18 06:00 08/11/18 06:00 08/11/18 06:00 08/11/18 06:00 08/11/18 06:00 Intake and Output: 08/11/18 08/11/18 06:59 18:59 Intake Total 360 Output Total 1050 Balance -690 - Medications Medications: Current Medications Alprazolam (Xanax) 0.5 mg PO BID PRN; Protocol PRN Reason: Anxiety Last Admin: 08/10/18 21:45 Dose: 0.5 mg Aspirin (Ecotrin) 81 mg PO DAILY [facility] Last Admin: 08/10/18 09:51 Dose: 81 mg Atorvastatin Calcium (Lipitor) 10 mg PO DAILY [facility] Last Admin: 08/10/18 09:51 Dose: 10 mg Azithromycin (Zithromax) 500 mg PO DAILY [facility] Last Admin: 08/10/18 09:51 Dose: 500 mg Cefpodoxime Proxetil (Vantin) 200 mg PO Q12 [facility] Stop: 08/13/18 10:01 Last Admin: 08/10/18 21:35 Dose: 200 mg Diltiazem HCl (Cardizem) 30 mg PO TID [facility] Last Admin: 08/10/18 17:29 Dose: 30 mg Furosemide (Lasix) 40 mg IVP DAILY [facility] Last Admin: 08/10/18 09:54 Dose: 40 mg Levalbuterol HCl (Xopenex) 0.63 mg IH Q2 PRN PRN Reason: Shortness of Breath Last Admin: 08/09/18 23:44 Dose: 0.63 mg Levalbuterol HCl (Xopenex) 0.63 mg IH [id number] [facility] Last Admin: 08/11/18 02:50 Dose: 0.63 mg Methylprednisolone (Solu-Medrol) 30 mg IV Q12 [facility] Last Admin: 08/10/18 21:34 Dose: 30 mg Oxycodone HCl (Oxycontin Extended Release Tab) 20 mg PO Q12 [facility] Last Admin: 08/10/18 21:36 Dose: 20 mg Oxycodone HCl (Oxycodone Immediate Release Tab) 10 mg PO BID PRN PRN Reason: moderate pain (4-7) Last Admin: 08/11/18 04:59 Dose: 10 mg Pantoprazole Sodium (Protonix Ec Tab) 40 mg PO 0600 [facility] Last Admin: 08/11/18 04:59 Dose: 40 mg Sotalol HCl (Betapace) 80 mg PO BID [facility] Last Admin: 08/10/18 17:29 Dose: 80 mg Verapamil HCl (Verapamil Inj) 5 mg IVP Q6 PRN PRN Reason: Heart rate Last Admin: 08/10/18 18:56 Dose: 5 mg - Labs Labs: 08/10/18 06:30 08/09/18 06:30 PT 10.2 SECONDS (9.4-12.5) 08/07/18 12:50 INR 0.89 08/07/18 12:50 APTT 24.7 Seconds (25.1-36.5) L 08/07/18 12:50 - Constitutional Appears: Non-toxic, No Acute Distress - Head Exam Head Exam: NORMAL INSPECTION, NORMOCEPHALIC - Eye Exam Eye Exam: Normal appearance Pupil Exam: NORMAL ACCOMODATION - ENT Exam ENT Exam: Mucous Membranes Moist - Neck Exam Neck Exam: Full ROM, Normal Inspection - Respiratory Exam Respiratory Exam: Decreased Breath Sounds, Rhonchi, NORMAL BREATHING PATTERN - Cardiovascular Exam Cardiovascular Exam: REGULAR RHYTHM, +S1, +S2 Additional comments: Telemetry NSR 70's - GI/Abdominal Exam GI & Abdominal Exam: Soft, Normal Bowel Sounds - Extremities Exam Extremities Exam: Full ROM Additional comments: 1+edema - Neurological Exam Neurological Exam: Alert, Awake, Oriented x3 - Psychiatric Exam Psychiatric exam: Normal Affect, Normal Mood - Skin Skin Exam: Dry, Normal Color, Warm Assessment and Plan - Assessment and Plan (Free Text) Assessment: A 58 year olf male who came in to the ER due to shortness of breath. History of COPD, chronic atrial fibrillation, radiofrequency ablation 06/2017, converted to normal sinus rhythm, hypertension,chronic back pain with kyphoplasty, Non- STEMI, non-obstructive coronary artery disease, cardiomyopathy,LVEF 48% from E cho last 09/08/2017. Admitted for exacerbation of COPD. Had episode of rapid atrial fibrillation, Cardizem bolus given and started on Cardizem drip. Heart rate controlled,converted to normal sinus rhythm.Cardizem drip discontinued and switched to oral cardizem.Restarted back Sotalol. Supposed to start Eliquis however had history of massive GI bleeding requiring blood transfusion. Will hold off Eliquis. May refer back to Dr. Amador for possible radiofrequency ablation of re-occurring atrial fibrillation. Plan: No distress,feels much better than yesterday On nasal cannula Normal sinus rhythm on telemetry 70's, controlled Hold off Eliquis, had history of massive GI bleeding requiring blood transfusion. Blood pressure controlled On ASA 81 mg daily. Lasix 40 mg daily,Solumedrol 40 mg every 8 hours Potassium chloride 10 meq daily, Sotalol 80 mg BID, Cardizem 30 mg TID Continue current treatment Continue IV antibiotics as ordered Will follow up Plan and treatment discussed with
[2018-08-11 08:14] LABS: BLOOD UREA NITROGEN 22 mg/dL (7-21); CALCIUM 9.4 mg/dL (8.4-10.5); GFR NON-AFRICAN AMERICAN > 60
[2018-08-11] MEDS: oxyCODONE 20 mg ER Tab (oxyCONTIN) PO SCH ×2 (10:29→21:33)
[2018-08-11] MEDS: Cefpodoxime (Vantin) 200 mg Tab PO SCH ×2 (10:30→21:34)
[2018-08-11] MEDS: MethylPREDNISolone 40 mg Vial IV SCH ×3 (10:32→21:33)
[2018-08-11] MEDS ORDERED: MethylPREDNISolone 40 mg Vial IVP STA (10:37)
--- NOTE | 2018-08-11 12:44 | PN ---
DATE: 08/11/2018 SUBJECTIVE: The patient is 58 years old, seen and examined, still has cough, congestion. He states he walks little distance and get short of breath. He started to have wheezing and tried to taper down stairs, but seems to be not tolerating. PHYSICAL EXAMINATION: VITAL SIGNS: The patient is afebrile. Pulse 85, respirations 20, and blood pressure 114/65. LUNGS: Bilateral expiratory rhonchi. HEART: S1 and S2 audible. Regular rate and rhythm. ABDOMEN: Soft, nontender. No rebound. No guarding. NEUROLOGIC: The patient is awake, alert, oriented, communicative. Moves all extremities. EXTREMITIES: Bilateral legs no edema. LABORATORY DATA: Chemistry: Sodium 137, potassium 4.4, chloride 95, CO2 of 36, BUN 22, creatinine 0.7, and blood sugar 222. Blood cultures are negative. ASSESSMENT: 1. Chronic obstructive pulmonary disease exacerbation. 2. Congestive heart failure exacerbation. 3. Brief episode of atrial fibrillation. 4. Chronic degenerative disk disease. 5. Status post kyphoplasty. 6. History of anemia. 7. History of atrial fibrillation, but had ablation done and since then, he has been in sinus rhythm. PLAN: We will continue the patient on sotalol and diltiazem. He is on aspirin 81 daily. On last admission, the patient responded well to verapamil. We will start him on verapamil 120 daily. Continue him on Betapace. I will increase his IV steroids. Continue him on nebulizer treatment. We will monitor his electrolytes intermittently. Ross Bowman MD
[2018-08-11] MEDS ORDERED: POLYETHYLENE GLYCOL 3350 17 GM/Dose PACKET PO PRN (16:43)
[2018-08-11] MEDS: Levalbuterol 0.63 MG/3 ML Inhal Soln UD IH PRN (16:48)
--- NOTE | 2018-08-11 19:05 | PN ---
DATE: 08/11/2018 ADDITIONAL PROGRESS NOTE LOCATION: The patient in room 271, bed 1. Detailed progress note has been already dictated by Jenny Castanon. This is additional note. SUBJECTIVE: The patient admitted with exacerbation of COPD and also has swelling of legs. The patient denies any chest pain. The patient also found to have paroxysmal atrial fibrillation, and the patient previously was put on Eliquis and had massive GI bleeding, so he is not a candidate for anticoagulation; however, the patient's rhythm converted into normal sinus rhythm now and he still has some wheezing, but his swelling legs have cleared up. LABORATORY DATA: His BUN is 22, creatinine 0.7, sodium 137, potassium 4.4. Hemoglobin 12 and hematocrit 38.2. PLAN: We will continue present therapy and we will follow with you. Shaila Resendez MD
[2018-08-12] MEDS: Levalbuterol 0.63 MG/3 ML Inhal Soln UD IH SCH ×5 (01:06→18:59)
[2018-08-12] MEDS: Pantoprazole 40 mg EC Tab PO SCH (06:29)
[2018-08-12] MEDS: LINACLOTIDE 145 MCG PO SCH (06:30)
[2018-08-12] MEDS: Levalbuterol 0.63 MG/3 ML Inhal Soln UD IH PRN ×3 (06:59→12:31)
--- NOTE | 2018-08-12 09:05 | CP.PCM.PN ---
Subjective - Date & Time of Evaluation Date of Evaluation: 08/12/18 Time of Evaluation: 06:25 - Subjective Subjective: Awake, alert,denies shortness of breath, constipation Reason for consultation and follow up: Cardiac evaluation of shortness of breath ,exacerbation of COPD, rapid ventricular rate atrial fibrillation, Seen and examined by me and Dr. Resendez Objective - Vital Signs/Intake and Output Vital Signs (last 24 hours): Temp Pulse Resp BP Pulse Ox 98.3 F 78 20 126/83 98 08/12/18 06:00 08/12/18 06:00 08/12/18 06:00 08/12/18 06:00 08/12/18 06:00 Intake and Output: 08/12/18 08/12/18 06:59 18:59 Intake Total 600 Output Total 800 Balance -200 - Medications Medications: Current Medications Alprazolam (Xanax) 0.5 mg PO BID PRN; Protocol PRN Reason: Anxiety Last Admin: 08/11/18 22:17 Dose: 0.5 mg Aspirin (Ecotrin) 81 mg PO DAILY [facility] Last Admin: 08/11/18 10:31 Dose: 81 mg Atorvastatin Calcium (Lipitor) 10 mg PO DAILY [facility] Last Admin: 08/11/18 10:31 Dose: 10 mg Azithromycin (Zithromax) 500 mg PO DAILY [facility] Last Admin: 08/11/18 10:29 Dose: 500 mg Cefpodoxime Proxetil (Vantin) 200 mg PO Q12 [facility] Stop: 08/13/18 10:01 Last Admin: 08/11/18 21:34 Dose: 200 mg Furosemide (Lasix) 40 mg IVP DAILY [facility] Last Admin: 08/11/18 10:31 Dose: 40 mg Home Med (Home Med) 1 unit PO ACB [facility] Last Admin: 08/12/18 06:30 Dose: 1 unit Levalbuterol HCl (Xopenex) 0.63 mg IH Q2 PRN PRN Reason: Shortness of Breath Last Admin: 08/12/18 07:58 Dose: 0.63 mg Levalbuterol HCl (Xopenex) 0.63 mg IH [id number] [facility] Last Admin: 08/12/18 06:59 Dose: 0.63 mg Methylprednisolone (Solu-Medrol) 40 mg IV Q12 [facility] Last Admin: 08/11/18 21:33 Dose: 40 mg Oxycodone HCl (Oxycontin Extended Release Tab) 20 mg PO Q12 [facility] Last Admin: 08/11/18 21:33 Dose: 20 mg Oxycodone HCl (Oxycodone Immediate Release Tab) 10 mg PO BID PRN PRN Reason: moderate pain (4-7) Last Admin: 08/11/18 20:02 Dose: 10 mg Pantoprazole Sodium (Protonix Ec Tab) 40 mg PO 0600 [facility] Last Admin: 08/12/18 06:29 Dose: 40 mg Polyethylene Glycol (Miralax) 17 gm PO BID PRN PRN Reason: Constipation Stop: 08/12/18 18:00 Last Admin: 08/11/18 17:12 Dose: 17 gm Sotalol HCl (Betapace) 80 mg PO BID [facility] Last Admin: 08/11/18 17:11 Dose: 80 mg Verapamil HCl (Verapamil Inj) 5 mg IVP Q6 PRN PRN Reason: Heart rate Last Admin: 08/10/18 18:56 Dose: 5 mg Verapamil HCl (Calan Sr Tab) 120 mg PO DAILY [facility] - Labs Labs: 08/10/18 06:30 08/11/18 07:00 PT 10.2 SECONDS (9.4-12.5) 08/07/18 12:50 INR 0.89 08/07/18 12:50 APTT 24.7 Seconds (25.1-36.5) L 08/07/18 12:50 - Constitutional Appears: Non-toxic, No Acute Distress - Head Exam Head Exam: NORMAL INSPECTION, NORMOCEPHALIC - Eye Exam Eye Exam: Normal appearance Pupil Exam: NORMAL ACCOMODATION - ENT Exam ENT Exam: Mucous Membranes Moist, Normal Exam - Respiratory Exam Respiratory Exam: Decreased Breath Sounds, Clear to Ausculation Bilateral, NORMAL BREATHING PATTERN - Cardiovascular Exam Cardiovascular Exam: REGULAR RHYTHM, +S1, +S2 - GI/Abdominal Exam GI & Abdominal Exam: Soft, Normal Bowel Sounds - Extremities Exam Extremities Exam: Full ROM Additional comments: 1+edema - Neurological Exam Neurological Exam: Alert, Awake, Oriented x3 - Psychiatric Exam Psychiatric exam: Normal Affect, Normal Mood - Skin Skin Exam: Dry, Normal Color, Warm Assessment and Plan - Assessment and Plan (Free Text) Assessment: A 58 year olf male who came in to the ER due to shortness of breath. History of COPD, chronic atrial fibrillation, radiofrequency ablation 06/2017, converted to normal sinus rhythm, hypertension,chronic back pain with kyphoplasty, Non-STEM I, non-obstructive coronary artery disease, cardiomyopathy,LVEF 48% from Echo last 09/08/2017. Admitted for exacerbation of COPD. Had episode of rapid atrial fibrillation, Cardizem bolus given and started on Cardizem drip. Heart rate controlled,converted to normal sinus rhythm.Cardizem drip discontinued and switched to oral cardizem. Restarted back Sotalol. Supposed to start Eliquis however had history of massive GI bleeding requiring blood transfusion. Will hold off Eliquis. May refer back to Dr. Amador for possible radiofrequency ablation of re-occurring atrial fibrillation. Converted to Normal sinus rhythm. Plan: No distress,denies shortness of breath, Complaints of constipation RN gave Miralax Normal sinus rhythm controlled/maintained Hold off Eliquis, had history of massive GI bleeding requiring blood transfusion. Blood pressure controlled On ASA 81 mg daily. Lasix 40 mg daily,Solumedrol 40 mg every 8 hours Potassium chloride 10 meq daily, Sotalol 80 mg BID, Cardizem 30 mg TID Continue current treatment Continue IV antibiotics as ordered Will follow up Plan and treatment discussed with
[2018-08-12] MEDS: Cefpodoxime (Vantin) 200 mg Tab PO SCH ×2 (09:13→21:00)
[2018-08-12] MEDS: oxyCODONE 5 mg Immediate Release Tab PO PRN (09:13)
[2018-08-12] MEDS: MethylPREDNISolone 40 mg Vial IV SCH ×2 (09:14→21:00)
[2018-08-12] MEDS: Verapamil 120 mg ER Tab PO SCH (09:14)
--- NOTE | 2018-08-12 10:39 | PN ---
DATE: 08/12/2018 SUBJECTIVE: The patient has no complaints of any chest pain or shortness of breath, headaches or dizziness. PHYSICAL EXAMINATION: VITAL SIGNS: Temperature is 98.3, pulse is 78, blood pressure 126/83, respirations 20. GENERAL: The patient is lying in bed, flat, comfortable. HEENT: No oral lesion. Anicteric sclerae. Moist mucosa. NECK: No JVD, adenopathy, or thyromegaly. CARDIOVASCULAR: S1 and S2, regular. No murmurs, rubs, or gallops. LUNGS: Clear to auscultation bilaterally. No wheeze, rales, or rhonchi. ABDOMEN: Bowel sounds are positive, soft, nontender and nondistended. EXTREMITIES: No cyanosis, clubbing, or edema. LABORATORY DATA: White count of 11.7, hemoglobin is 12, creatinine is 0.7. ASSESSMENT: 1. Chronic obstructive pulmonary disease. 2. Congestive heart failure secondary to diastolic dysfunction with ejection fraction of 48%. 3. Atrial fibrillation. 4. Status post kyphoplasty. 5. Chronic back pain secondary to degenerative joint disease. PLAN: The patient is currently comfortable. He is on sotalol for his arrhythmia. The patient is on aspirin daily. He is going to continue with his Lasix for his CHF. He is on Lipitor for dyslipidemia. He is on Protonix daily. The patient is also on Xopenex for his breathing. He is on antibiotics with Zithromax. The patient is on a BiPAP machine. He will get repeat blood work done tomorrow. This is coverage for Dr. Bowman. Johnathon Willoughby MD
[2018-08-12] MEDS: oxyCODONE 20 mg ER Tab (oxyCONTIN) PO SCH ×2 (12:33→21:00)
--- NOTE | 2018-08-12 19:08 | PN ---
DATE: 08/12/2018 LOCATION: The patient is in room 271, bed 2. Detailed progress note has been already dictated by Jenny Castanon. This is an additional note. SUBJECTIVE: The patient is lying flat in bed. He says when he getting shortness of breath. Denies chest pain. Denies palpitation. The patient still has bilateral wheezing. The patient had atrial fibrillation, which converted to sinus rhythm. The patient is not candidate for anticoagulation because on Eliquis, the patient had massive GI bleeding with multiple blood transfusions. The patient has no evidence of CHF at present, so I am going to stop IV Lasix and rest of the medication we are going to continue. We will follow with you. Shaila Resendez MD
[2018-08-13] MEDS: Levalbuterol 0.63 MG/3 ML Inhal Soln UD IH SCH ×4 (01:19→20:14)
[2018-08-13] MEDS: Pantoprazole 40 mg EC Tab PO SCH (06:47)
[2018-08-13] MEDS: LINACLOTIDE 145 MCG PO SCH (06:47)
[2018-08-13] MEDS: oxyCODONE 5 mg Immediate Release Tab PO PRN (06:49)
[2018-08-13 09:43] LABS: HEMOGLOBIN 14.1 g/dL (14.0-18.0); MEAN CELL VOLUME 88.5 fl (80.0-105.0); MEAN CORPUSCULAR HEMOGLOBIN 28.8 pg (25.0-35.0); MEAN CORPUSCULAR HGB CONC 32.6 g/dl (31.0-37.0); MEAN PLATELET VOLUME 10.9 fl (7.0-11.0); RBC 4.89 10^6/uL (3.5-6.1); RED CELL DISTRIBUTION WIDTH 14.1 % (11.5-14.5); WHITE BLOOD COUNT 16.3 10^3/uL (4.5-11.0)
[2018-08-13] MEDS: Levalbuterol 0.63 MG/3 ML Inhal Soln UD IH PRN (09:55)
[2018-08-13 10:12] LABS: ALB/GLOB RATIO 1.7 (1.1-1.8); ALBUMIN 3.9 g/dL (3.0-4.8); ALT/SGPT 35 U/L (7-56); AST/SGOT 19 U/L (17-59); BLOOD UREA NITROGEN 27 mg/dL (7-21); CALCIUM 9.6 mg/dL (8.4-10.5); GFR NON-AFRICAN AMERICAN > 60
[2018-08-13] MEDS: MethylPREDNISolone 40 mg Vial IV SCH ×2 (10:22→21:57)
[2018-08-13] MEDS: oxyCODONE 20 mg ER Tab (oxyCONTIN) PO SCH ×2 (10:23→21:57)
[2018-08-13] MEDS: Verapamil 120 mg ER Tab PO SCH (10:33)
[2018-08-13] MEDS: Cefpodoxime (Vantin) 200 mg Tab PO SCH (10:33)
--- NOTE | 2018-08-13 11:38 | PQF ---
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 Please document the type and acuity (in cludes probable or suspected) Such as: Type: -- Systolic -- Diastolic -- Combined -- Other, please specify Acuity: -- Acute -- Chronic -- Acute on chronic -- Other, please specify Also please document the underlying cause of the CHF (includes probable or suspected) The patient's Clinical Indicators include: PN of 08/09 notes CHF exacerbation. Please specify type and acuity of CHF present in this patient. Query created by: Clementine Downs on 08/10/2018 11:13 AM Electronically signed by: Ross Bowman MD 08/13/2018 11:35 AM
[2018-08-13] MEDS: Budesonide 0.5 mg/2 ml Inhal Susp UD IH SCH ×2 (13:30→20:14)
--- NOTE | 2018-08-13 14:20 | CP.PCM.APN ---
Subjective - Date & Time of Evaluation Date of Evaluation: 08/13/18 Time of Evaluation: 10:00 - Subjective Subjective: pt seen and examined at bedside, pt reports persistent sob, winded after ambulating to bathroom, requesting pul consultation with his pul Drs Review of Systems - Respiratory Respiratory: Dyspnea, Dyspnea on Exertion Objective - Vital Signs/Intake and Output Vital Signs (last 24 hours): Temp Pulse Resp BP Pulse Ox 97.7 F 80 19 137/95 H 95 08/13/18 12:00 08/13/18 12:00 08/13/18 12:00 08/13/18 12:00 08/13/18 06:00 Intake and Output: 08/13/18 08/13/18 06:59 18:59 Intake Total 1380 Output Total 2850 Balance -1470 - Medications Medications: Current Medications Alprazolam (Xanax) 0.5 mg PO BID PRN; Protocol PRN Reason: Anxiety Last Admin: 08/12/18 20:58 Dose: 0.5 mg Arformoterol Tartrate (Brovana) 15 mcg IH [id number] [facility] Aspirin (Ecotrin) 81 mg PO DAILY [facility] Last Admin: 08/13/18 10:23 Dose: 81 mg Atorvastatin Calcium (Lipitor) 10 mg PO DAILY [facility] Last Admin: 08/13/18 10:23 Dose: 10 mg Azithromycin (Zithromax) 500 mg PO DAILY [facility] Last Admin: 08/13/18 10:23 Dose: 500 mg Budesonide (Pulmicort Respules) 0.5 mg IH BIDRESP [facility] Last Admin: 08/13/18 13:30 Dose: 0.5 mg Home Med (Home Med) 1 unit PO ACB [facility] Last Admin: 08/13/18 06:47 Dose: 1 unit Ceftriaxone Sodium (Rocephin 1 Gram Ivpb) 1 gm in 100 mls @ 100 mls/hr IVPB DAILY [facility]; Protocol Levalbuterol HCl (Xopenex) 0.63 mg IH Q2 PRN PRN Reason: Shortness of Breath Last Admin: 08/13/18 09:55 Dose: 0.63 mg Levalbuterol HCl (Xopenex) 0.63 mg IH [id number] [facility] Last Admin: 08/13/18 13:30 Dose: 0.63 mg Methylprednisolone (Solu-Medrol) 40 mg IV Q12 [facility] Last Admin: 08/13/18 10:22 Dose: 40 mg Oxycodone HCl (Oxycontin Extended Release Tab) 20 mg PO Q12 [facility] Last Admin: 08/13/18 10:23 Dose: 20 mg Oxycodone HCl (Oxycodone Immediate Release Tab) 10 mg PO BID PRN PRN Reason: moderate pain (4-7) Last Admin: 08/13/18 06:49 Dose: 10 mg Pantoprazole Sodium (Protonix Ec Tab) 40 mg PO 0600 [facility] Last Admin: 08/13/18 06:47 Dose: 40 mg Roflumilast (Daliresp) 500 mcg PO DAILY [facility] Sotalol HCl (Betapace) 80 mg PO BID [facility] Last Admin: 08/13/18 10:33 Dose: 80 mg Verapamil HCl (Verapamil Inj) 5 mg IVP Q6 PRN PRN Reason: Heart rate Last Admin: 08/10/18 18:56 Dose: 5 mg Verapamil HCl (Calan Sr Tab) 120 mg PO DAILY [facility] Last Admin: 08/13/18 10:33 Dose: 120 mg - Labs Labs: 08/13/18 06:00 08/13/18 09:25 PT 10.2 SECONDS (9.4-12.5) 08/07/18 12:50 INR 0.89 08/07/18 12:50 APTT 24.7 Seconds (25.1-36.5) L 08/07/18 12:50 - Constitutional Appears: No Acute Distress - Head Exam Head Exam: NORMAL INSPECTION, NORMOCEPHALIC - Eye Exam Eye Exam: Normal appearance - Respiratory Exam Respiratory Exam: Accessory Muscle Use, Decreased Breath Sounds - Cardiovascular Exam Cardiovascular Exam: +S1, +S2 - GI/Abdominal Exam GI & Abdominal Exam: Soft, Normal Bowel Sounds - Neurological Exam Neurological Exam: Alert, Awake - Psychiatric Exam Psychiatric exam: Normal Affect, Normal Mood Assessment and Plan - Assessment and Plan (Free Text) Plan: 58 yr old white male with pmh sig for advanced copd on 3l home o2, afib, chf/ dilated cm, mi, htn chronic back pain admitted with worsening LE edema, sob and cough s/p BIPAP treatment now for futher mgmt and treatment with cardiac consultation on board for afib with RVR #advanced copd/ resp insufficieny iV solumerol 40 q8 - to be tapered douneb changed to Xopenex due to high heart rate Pt states he has 3l O2 at home but does not have BIPAP. pt requesting pul eval with Dr solano , consult requested will do follow up cxr in am daliresp regimen #Leukocytosis iv rocephin and now p.o zithro will monitor for prolonged QT #parox afib - episode of rapid afib cardiology consultation with Dr Samuel spoke to Dr Samuel re medication regimen Pt had rapid afib and is now s/p cardizem drip - now on PO meds with etapace and Verapamil 120mg daily # htn continue present mgmt stable discussed plan of care with PMD, pul consultation obtained. repeat cxr in am will continue to follow Cecilia Bowen APN BPCI/TIC - BPCIA/TIC Educated pt/family on BPCIA/CIR/Med to Bed Programs: Yes Flyers given, including CMS Beneficiary letter: Yes Pt/family verbalized understanding & agreed to program: Yes
--- NOTE | 2018-08-13 17:55 | PN ---
DATE: 08/13/2018 SUBJECTIVE: The patient is a 58-year-old, seen and examined, still has shortness of breath. Wheezing is better, but gets short of breath even walking to the bathroom. PHYSICAL EXAMINATION: VITAL SIGNS: Afebrile. Pulse 77, respirations 19, and blood pressure 139/77. LUNGS: Bilateral fair air flow. No rhonchi or crackle. HEART: S1 and S2 audible. No murmur. ABDOMEN: Soft and nontender. No rebound. No guarding. NEUROLOGIC: He is awake and alert, able to communicate. EXTREMITIES: No edema. LABORATORY DATA: WBC 16.3, hemoglobin 14, hematocrit 43, and platelet of 223. Chemistry: Sodium 138, potassium 5.1, chloride 94, CO2 of 39, BUN 27, creatinine 0.6, and blood sugar 174. Blood cultures are negative. ASSESSMENT: 1. Chronic obstructive pulmonary disease exacerbation. 2. History of atrial fibrillation, currently in sinus rhythm. 3. History of anemia. There is history of gastrointestinal bleed when he was on Coumadin. 4. Chronic degenerative disk disease, status post multiple kyphoplasty. 5. Mild renal insufficiency. PLAN: We will add Brovana. The patient was on Daliresp and it will be restarted. We will add budesonide. Continue on IV steroids. Continue nebulizer treatment. He is on Zithromax, we will continue that. We will add Vantin and add Rocephin. Continue Zithromax. Continue telemetry monitoring. Resume his pain medications. Ross Bowman MD
[2018-08-13] MEDS: cefTRIAXone 1 gm 1 GM/100 ML BAG IVPB SCH (18:20)
--- NOTE | 2018-08-13 19:31 | PN ---
DATE: 08/13/2018 REASON FOR CONSULTATION: Followup cardiac evaluation, shortness of breath, exacerbation of COPD, history of paroxysmal atrial fibrillation, status post radiofrequency ablation, went into very short atrial fibrillation, now patient converted to normal sinus, history of GI bleed on Eliquis, admitted with requiring multiple transfusion. SUBJECTIVE: The patient denies any chest pain, shortness of breath or any palpitation. PHYSICAL EXAMINATION: As follows: GENERAL: Not in apparent distress. VITAL SIGNS: Temperature afebrile, heart rate 77, blood pressure 139/77. HEENT: PERRLA. Extraocular muscles are intact. NECK: Supple. No carotid bruit or thyromegaly. CHEST: Clear to auscultation. CARDIOPULMONARY: S1 and S2 regular. ABDOMEN: Soft. EXTREMITIES: Clubbing and cyanosis negative. LABORATORY DATA: Blood workup as follows. WBC , hemoglobin 14.2, hematocrit of 43.3, and platelet count 223. Chemistry shows sodium 138, potassium 5, chloride 94, CO2, 39, anion gap of 11, BUN and creatinine 0.6. IMPRESSION: A 58-year-old male with past medical history significant for nonischemic cardiomyopathy, normal coronaries, in the past, history of paroxysmal atrial fibrillation, status post radiofrequency ablation, admitted here with acute exacerbation of chronic obstructive pulmonary disease, went for supraventricular tachycardia and atrial fibrillation, converted to normal sinus. The patient is not on anticoagulation because the patient bled last time on Eliquis, requiring 5 to 6 units of blood, history of back pain with kyphoplasty. RECOMMENDATION: Continue sotalol 80 b.i.d. Continue aspirin. Continue verapamil as tolerated. CVS status is stable. Monitory electrolytes. Monitor potassium. Repeat the labs in the morning, high potassium secondary to steroid. We will repeat the blood workup in the morning. We will discontinue telemetry. Thank you Dr. Bowman for providing us the opportunity in taking care of the patient, Demetrio Cano. Shaila Samuel MD
[2018-08-13] MEDS: Arformoterol 15 mcg/2 ml Inh Sol IH SCH (20:14)
[2018-08-14] MEDS: Levalbuterol 0.63 MG/3 ML Inhal Soln UD IH SCH ×4 (01:05→20:41)
[2018-08-14] MEDS: Pantoprazole 40 mg EC Tab PO SCH (06:56)
[2018-08-14] MEDS: LINACLOTIDE 145 MCG PO SCH (06:57)
[2018-08-14] MEDS: oxyCODONE 5 mg Immediate Release Tab PO PRN (07:02)
--- NOTE | 2018-08-14 07:15 | CP.PCM.PN ---
Subjective - Date & Time of Evaluation Date of Evaluation: 08/14/18 Time of Evaluation: 06:35 - Subjective Subjective: Awake, alert, moderate shortness of breath walking back from bathroom, BiPAp in use Reason for consultation and follow up: Cardiac evaluation of shortness of breath,exacerbation of COPD, rapid ventricular rate atrial fibrillation, Seen and examined by me and Dr. Samuel Objective - Vital Signs/Intake and Output Vital Signs (last 24 hours): Temp Pulse Resp BP Pulse Ox 98 F 82 20 119/81 96 08/14/18 06:00 08/14/18 06:00 08/14/18 06:00 08/14/18 06:00 08/14/18 06:00 Intake and Output: 08/14/18 08/14/18 06:59 18:59 Intake Total 1260 Output Total 1550 Balance -290 - Medications Medications: Current Medications Alprazolam (Xanax) 0.5 mg PO BID PRN; Protocol PRN Reason: Anxiety Last Admin: 08/12/18 20:58 Dose: 0.5 mg Arformoterol Tartrate (Brovana) 15 mcg IH [id number] [facility] Last Admin: 08/13/18 20:14 Dose: 15 mcg Aspirin (Ecotrin) 81 mg PO DAILY [facility] Last Admin: 08/13/18 10:23 Dose: 81 mg Atorvastatin Calcium (Lipitor) 10 mg PO DAILY [facility] Last Admin: 08/13/18 10:23 Dose: 10 mg Azithromycin (Zithromax) 500 mg PO DAILY [facility] Last Admin: 08/13/18 10:23 Dose: 500 mg Budesonide (Pulmicort Respules) 0.5 mg IH BIDRESP [facility] Last Admin: 08/13/18 20:14 Dose: 0.5 mg Home Med (Home Med) 1 unit PO ACB [facility] Last Admin: 08/14/18 06:57 Dose: 1 unit Ceftriaxone Sodium (Rocephin 1 Gram Ivpb) 1 gm in 100 mls @ 100 mls/hr IVPB DAILY [facility]; Protocol Last Admin: 08/13/18 18:20 Dose: 100 mls/hr Levalbuterol HCl (Xopenex) 0.63 mg IH Q2 PRN PRN Reason: Shortness of Breath Last Admin: 08/13/18 09:55 Dose: 0.63 mg Levalbuterol HCl (Xopenex) 0.63 mg IH [id number] [facility] Last Admin: 08/14/18 01:05 Dose: 0.63 mg Methylprednisolone (Solu-Medrol) 40 mg IV Q12 [facility] Last Admin: 08/13/18 21:57 Dose: 40 mg Oxycodone HCl (Oxycontin Extended Release Tab) 20 mg PO Q12 [facility] Last Admin: 08/13/18 21:57 Dose: 20 mg Oxycodone HCl (Oxycodone Immediate Release Tab) 10 mg PO BID PRN PRN Reason: moderate pain (4-7) Last Admin: 08/14/18 07:02 Dose: 10 mg Pantoprazole Sodium (Protonix Ec Tab) 40 mg PO 0600 [facility] Last Admin: 08/14/18 06:56 Dose: 40 mg Roflumilast (Daliresp) 500 mcg PO DAILY [facility] Last Admin: 08/13/18 18:21 Dose: 500 mcg Sotalol HCl (Betapace) 80 mg PO BID [facility] Last Admin: 08/13/18 18:21 Dose: 80 mg Verapamil HCl (Verapamil Inj) 5 mg IVP Q6 PRN PRN Reason: Heart rate Last Admin: 08/10/18 18:56 Dose: 5 mg Verapamil HCl (Calan Sr Tab) 120 mg PO DAILY [facility] Last Admin: 08/13/18 10:33 Dose: 120 mg - Labs Labs: 08/13/18 06:00 08/13/18 09:25 PT 10.2 SECONDS (9.4-12.5) 08/07/18 12:50 INR 0.89 08/07/18 12:50 APTT 24.7 Seconds (25.1-36.5) L 08/07/18 12:50 - Constitutional Appears: Non-toxic, No Acute Distress - Head Exam Head Exam: NORMAL INSPECTION, NORMOCEPHALIC - Eye Exam Eye Exam: Normal appearance Pupil Exam: NORMAL ACCOMODATION - ENT Exam ENT Exam: Mucous Membranes Moist, Normal Exam - Respiratory Exam Respiratory Exam: Decreased Breath Sounds, Rhonchi, NORMAL BREATHING PATTERN - Cardiovascular Exam Cardiovascular Exam: REGULAR RHYTHM, +S1, +S2 - GI/Abdominal Exam GI & Abdominal Exam: Soft, Normal Bowel Sounds - Extremities Exam Extremities Exam: Full ROM, Normal Capillary Refill - Neurological Exam Neurological Exam: Alert, Awake, Oriented x3 - Psychiatric Exam Psychiatric exam: Normal Affect, Normal Mood - Skin Skin Exam: Dry, Normal Color, Warm Assessment and Plan - Assessment and Plan (Free Text) Assessment: A 58 year olf male who came in to the ER due to shortness of breath. History of COPD, chronic atrial fibrillation, radiofrequency ablation 06/2017, converted to normal sinus rhythm, hypertension,chronic back pain with kyphoplasty, Non- STEMI, non-obstructive coronary artery disease, cardiomyopathy,LVEF 48% from Echo last 09/08/2017. Admitted for exacerbation of COPD. Had episode of rapid atrial fibrillation, Cardizem bolus given and started on Cardizem drip. Heart rate controlled,converted to normal sinus rhythm.Cardizem drip discontinued and switched to oral cardizem. Restarted back Sotalol. Supposed to start Eliquis how ever had history of massive GI bleeding requiring blood transfusion. Will hold off Eliquis. May refer back to Dr. Amador for possible radiofrequency ablation of re-occurring atrial fibrillation. Converted to Normal sinus rhythm. Moderate shortness of breath walking back from bathroom. No wheezing, Bipap in use Plan: Moderate shortness of breath walking back from bathroom. No wheezing, Bipap in use Pulmonary on consult Normal sinus rhythm controlled/maintained Blood pressure controlled Cardiac status stable Off telemetry On ASA 81 mg daily. Lasix 40 mg daily,Solumedrol 40 mg every 12 hours Potassium chloride 10 meq daily, Sotalol 80 mg BID, Calan SR 120 mg daily Continue current treatment Continue IV antibiotics as ordered Physical therapy Will follow up Plan and treatment discussed with
[2018-08-14] MEDS: Budesonide 0.5 mg/2 ml Inhal Susp UD IH SCH ×2 (08:07→20:41)
[2018-08-14] MEDS: Arformoterol 15 mcg/2 ml Inh Sol IH SCH ×2 (08:07→20:40)
[2018-08-14 08:27] LABS: BLOOD UREA NITROGEN 28 mg/dL (7-21); CALCIUM 9.4 mg/dL (8.4-10.5); GFR NON-AFRICAN AMERICAN > 60
--- NOTE | 2018-08-14 08:52 | RAD ---
Date of service: 08/14/2018 HISTORY: followup COMPARISON: 08/07/2018. FINDINGS: LUNGS: The lungs are well inflated and clear. PLEURA: No pleural effusions or pneumothorax. CARDIOVASCULAR: The heart is normal in size. No aortic atherosclerotic calcifications present. OSSEOUS STRUCTURES: Within normal limits for the patient's age. Stable. VISUALIZED UPPER ABDOMEN: Normal. OTHER FINDINGS: None. IMPRESSION: No active pulmonary disease.
[2018-08-14] MEDS: Fluticasone Nasal 50 mcg/Spray NS SCH (10:00)
[2018-08-14] MEDS: cefTRIAXone 1 gm 1 GM/100 ML BAG IVPB SCH (10:15)
[2018-08-14] MEDS: MethylPREDNISolone 40 mg Vial IV SCH ×2 (10:16→22:46)
[2018-08-14] MEDS: oxyCODONE 20 mg ER Tab (oxyCONTIN) PO SCH ×2 (10:17→22:46)
[2018-08-14] MEDS: Verapamil 120 mg ER Tab PO SCH (10:19)
[2018-08-14] MEDS: Enoxaparin 40 mg Syringe SC SCH (11:23)
--- NOTE | 2018-08-14 13:42 | CP.PCM.APN ---
Subjective - Date & Time of Evaluation Date of Evaluation: 08/14/18 Time of Evaluation: 10:30 - Subjective Subjective: pt seen at bedside states he feels better pt express thanks for pulmonary consultation and states he wants to try to get OOB , admits to JARA with activity but states he feels better today Review of Systems - Respiratory Respiratory: Dyspnea on Exertion Objective - Vital Signs/Intake and Output Vital Signs (last 24 hours): Temp Pulse Resp BP Pulse Ox 97.5 F L 84 20 139/91 H 96 08/14/18 12:00 08/14/18 12:00 08/14/18 12:00 08/14/18 12:00 08/14/18 06:00 Intake and Output: 08/14/18 08/14/18 06:59 18:59 Intake Total 1260 Output Total 1550 Balance -290 - Medications Medications: Current Medications Alprazolam (Xanax) 0.5 mg PO BID PRN; Protocol PRN Reason: Anxiety Last Admin: 08/12/18 20:58 Dose: 0.5 mg Arformoterol Tartrate (Brovana) 15 mcg IH [id number] [facility] Last Admin: 08/14/18 08:07 Dose: 15 mcg Aspirin (Ecotrin) 81 mg PO DAILY [facility] Last Admin: 08/14/18 10:19 Dose: 81 mg Atorvastatin Calcium (Lipitor) 10 mg PO DAILY [facility] Last Admin: 08/14/18 10:19 Dose: 10 mg Azithromycin (Zithromax) 500 mg PO DAILY [facility] Last Admin: 08/14/18 10:18 Dose: 500 mg Budesonide (Pulmicort Respules) 0.5 mg IH BIDRESP [facility] Last Admin: 08/14/18 08:07 Dose: 0.5 mg Enoxaparin Sodium (Lovenox) 40 mg SC DAILY [facility]; Protocol Last Admin: 08/14/18 11:23 Dose: 40 mg Fluticasone Propionate (Flonase) 1 actuation NS DAILY [facility] Last Admin: 08/14/18 10:00 Dose: 1 applic Home Med (Home Med) 1 unit PO ACB [facility] Last Admin: 08/14/18 06:57 Dose: 1 unit Ceftriaxone Sodium (Rocephin 1 Gram Ivpb) 1 gm in 100 mls @ 100 mls/hr IVPB DAILY [facility]; Protocol Last Admin: 08/14/18 10:15 Dose: 100 mls/hr Levalbuterol HCl (Xopenex) 0.63 mg IH Q2 PRN PRN Reason: Shortness of Breath Last Admin: 08/13/18 09:55 Dose: 0.63 mg Levalbuterol HCl (Xopenex) 0.63 mg IH [id number] [facility] Last Admin: 08/14/18 08:07 Dose: 0.63 mg Methylprednisolone (Solu-Medrol) 40 mg IV Q12 [facility] Last Admin: 08/14/18 10:16 Dose: 40 mg Oxycodone HCl (Oxycontin Extended Release Tab) 20 mg PO Q12 [facility] Last Admin: 08/14/18 10:17 Dose: 20 mg Oxycodone HCl (Oxycodone Immediate Release Tab) 10 mg PO BID PRN PRN Reason: moderate pain (4-7) Last Admin: 08/14/18 07:02 Dose: 10 mg Pantoprazole Sodium (Protonix Ec Tab) 40 mg PO 0600 [facility] Last Admin: 08/14/18 06:56 Dose: 40 mg Roflumilast (Daliresp) 500 mcg PO DAILY [facility] Last Admin: 08/14/18 10:28 Dose: 500 mcg Sotalol HCl (Betapace) 80 mg PO BID [facility] Last Admin: 08/14/18 10:18 Dose: 80 mg Verapamil HCl (Verapamil Inj) 5 mg IVP Q6 PRN PRN Reason: Heart rate Last Admin: 08/10/18 18:56 Dose: 5 mg Verapamil HCl (Calan Sr Tab) 120 mg PO DAILY [facility] Last Admin: 08/14/18 10:19 Dose: 120 mg - Labs Labs: 08/13/18 06:00 08/14/18 08:00 PT 10.2 SECONDS (9.4-12.5) 08/07/18 12:50 INR 0.89 08/07/18 12:50 APTT 24.7 Seconds (25.1-36.5) L 08/07/18 12:50 - Constitutional Appears: No Acute Distress - Head Exam Head Exam: NORMAL INSPECTION, NORMOCEPHALIC - Eye Exam Eye Exam: Normal appearance - Respiratory Exam Respiratory Exam: Decreased Breath Sounds, NORMAL BREATHING PATTERN - Cardiovascular Exam Cardiovascular Exam: +S1, +S2 - Neurological Exam Neurological Exam: Alert, Awake - Psychiatric Exam Psychiatric exam: Normal Affect, Normal Mood - Skin Skin Exam: Dry, Intact Assessment and Plan - Assessment and Plan (Free Text) Plan: 58 yr old white male with pmh sig for advanced copd on 3l home o2, afib, chf/ dilated cm, mi, htn chronic back pain admitted with worsening LE edema, sob and cough s/p BIPAP treatment now for further mgmt and treatment with cardiac consultation on board for afib with RVR and pul consult foe pt request for ad vanced copd #advanced copd/ resp insufficiency iV solumerol 40 q8 - to be tapered douneb changed to Xopenex due to high heart rate Pt states he has 3l O2 at home but does not have BIPAP daliresp, brovana, pulmicort regimen discuss with Dr Pineda, plan to taper steroids #Leukocytosis Pt is on steriod regimen as attributing factor iv rocephin and now p.o zithro reperat cxr no active dx #parox afib - episode of rapid afib cardiology consultation with Dr Samuel spoke to Dr Samuel re medication regimen Pt had rapid afib and is now s/p cardizem drip - now on PO meds with Betapace and Verapamil 120mg daily cardiology notes reviewed - stable cardiac status # htn continue present mgmt stable discussed plan of care with PMD and pulmonary OOB as tolerated will continue to follow Cecilia Bowen APN BPCI/TIC - BPCIA/TIC Educated pt/family on BPCIA/CIR/Med to Bed Programs: Yes Flyers given, including [facility] Beneficiary letter: Yes Pt/family verbalized understanding & agreed to program: Yes
--- NOTE | 2018-08-14 15:40 | PN ---
DATE: 08/14/2018 REASON FOR CONSULTATION AND FOLLOWUP: Shortness of breath with exacerbation of COPD, history of SVT status post radiofrequency ablation. This note is addition to dictated by nurse practitioner, Jenny Castanon. SUBJECTIVE: Patient remained stable. Yesterday, nurse called the patient's heart rate 150, telemetry viewed it was Arte[employer] because of the gain, monitor was counting T wave and QRS complex twice and that is the heart rate, but heart rate remained stable. No further episode of arrhythmia noted. RECOMMENDATION: Continue verapamil 120 mg daily, continue sotalol, continue aspirin. Ambulate out of bed to chair. Discontinue telemetry, physical therapy for ambulation. If patient does not walk, consider DVT prophylaxis though patient has history of proximal in the past, but not on liquids because patient has bleeding in the past. Thank you Dr. Bowman for providing us the opportunity in taking care of the patient, Rachael. We will follow with you.Pt is not for DVT, we will start DVT prophylaxis. Out of bed to chair. Shaila Samuel MD LEANDRA
--- NOTE | 2018-08-14 18:00 | CON ---
DATE: 08/14/2018 PULMONARY CONSULTATION REASON FOR PULMONARY CONSULTATION: Chronic obstructive pulmonary disease. REFERRING PHYSICIAN: Ross Bowman MD HISTORY OF PRESENT ILLNESS: The patient is a chronically ill 58-year-old male, with past medical history significant for advanced/end-stage chronic obstructive pulmonary disease, on home oxygen, paroxysmal atrial fibrillation, congestive heart failure, coronary artery disease, myocardial infarction in the past, who presented to [facility] - originally on 08/07/2018 - with a 2-day history of worsening pulmonary symptoms. In the emergency room, the patient was diagnosed with acute exacerbation of his COPD. He was thus admitted for additional evaluation. Over the past week, the patient has shown clinical improvement. He is not short of breath at rest. He does have chronic dyspnea on exertion. There is much less cough, with occasional sputum production. There is no history of chest pain, coughing up of blood, or chest pain - brought on with deep respirations. There is no history of temperatures, chills, or infectious exposure. There is no history of night sweats, weight loss, or appetite change prior to the above events. No history of leg or calf pains. No history of syncope or diaphoresis. No history of recent travel or trauma. REVIEW OF SYSTEMS: The patient does complain of sinus problems and drainage. No history of nausea, vomiting, or diarrhea. No acute urinary symptoms. No new neurologic complaints. Rest of the review of systems is negative. ALLERGIES: NO KNOWN ALLERGIES. SOCIAL HISTORY: Positive for extensive tobacco usage. History is also positive for previous alcohol abuse, and previous polysubstance abuse. FAMILY HISTORY: No inheritable diseases. MEDICATIONS: Home medications include prednisone, oxycodone, Betapace, Protonix, Lovenox, Pulmicort, Xanax. PHYSICAL EXAMINATION: GENERAL: The patient appears comfortable this morning. He is not short of breath at rest. VITALS (last noted in the computer): Temperature is 98, pulse 82, respirations 18/20, blood pressure 119/81. Oxygen saturation on nasal cannula is 96-100%. HEENT: Normocephalic, atraumatic. No JVD. CARDIOVASCULAR: Systolic ejection murmur at the lower left sternal border. No S3 gallop. LUNGS: Minimal rhonchi bilaterally. No wheezing. EXTREMITIES: Mild edema. No cyanosis. No clubbing. Calves are nontender to palpation. GI: Abdomen is soft, nontender, and nondistended. Bowel sounds are positive. SKIN: No acute rash. NEUROLOGIC: Exam limited at the present time. PERTINENT LABORATORY DATA: Chest x-ray was done this morning and reviewed. I do not appreciate any new or significant change - compared to the previous film. Official results are pending. CBC: White count 16.3K, hemoglobin 14.1, hematocrit 43.3, platelets of 223,000. Complete Metabolic Profile: Potassium 5.1, chloride 94, carbon dioxide 39, BUN 27, glucose 174, magnesium 2.6. Rest of the metabolic profile is within normal limits. IMPRESSION: 1. Recurrent bronchitis. 2. Advanced chronic obstructive pulmonary disease, on home oxygen. 3. Paroxysmal atrial fibrillation. 4. Coronary artery disease. PLAN: The patient presented to [facility] - originally on 08/07/2018 - with increasing pulmonary symptoms for the previous 2 days. In the emergency room, the patient was diagnosed with an acute exacerbation of his chronic obstructive pulmonary disease. He was thus admitted for additional evaluation. Over the past week, the patient is feeling better and is clinically improved. I did review the chest x-ray from this morning. I do not appreciate any new or significant changes. Official results are pending. On physical exam, there is only mild bronchospasm noted. In addition, there is no significant alveolar-arterial gradient. I will continue the current nebulizer treatments and low-dose intravenous steroids for now. I will also add nasal steroids - given the above history. Input by Cardiology is also noted. I did discuss the case with the nurse practitioner (for Dr. Resendez) at length this morning. Clinical status has improved over the past week. Again, there is only mild bronchospasm noted this morning, and with no significant alveolar-arterial gradient. Additional pulmonary intervention will be based on the clinical status of the patient. I will discuss the above with Dr. Bowman. Thank you very much for this pulmonary consultation. Mane Pineda MD [facility] # [id number] LEANDRA
--- NOTE | 2018-08-14 18:01 | PN ---
DATE: 08/14/2018 SUBJECTIVE: The patient is a 58-year-old, seen and examined, seems to be doing a little better, still has cough and congestion, wheezing. Denies any nausea or vomiting, eating and tolerating. Back pain is variable. PHYSICAL EXAMINATION: VITAL SIGNS: The patient is afebrile, pulse 82, respirations 20, and blood pressure 119/81. LUNGS: Bilateral fair air flow. A few inspiratory rhonchi both posteriorly and upper lung region. HEART: S1 and S2 audible. Regular rate and rhythm. ABDOMEN: Soft, nontender, obese, no hepatosplenomegaly. NEUROLOGIC: He is awake, alert, and oriented, communicative. LABORATORY DATA: WBC 16.3, hemoglobin 14, hematocrit 43, and platelets of 223. Chemistry: Sodium 136, potassium 4.9, chloride 95, CO2 of 36, BUN 28, creatinine 0.6, and blood sugar 173. ASSESSMENT: 1. Chronic obstructive pulmonary disease exacerbation. 2. History of congestive heart failure. 3. Nonischemic cardiomyopathy. 4. A brief episode of atrial fibrillation. 5. Hyperlipidemia. 6. Degenerative disk disease, chronic back pain. PLAN: We will continue the patient on current medication. He is refusing to go to TCU. We will discontinue telemetry, taper down his steroid in the a.m., and make discharge plan within next 24 to 48 hours depending on the patient's response to today's treatment. Ross Bowman MD
[2018-08-15] MEDS: Levalbuterol 0.63 MG/3 ML Inhal Soln UD IH SCH ×3 (01:56→13:31)
[2018-08-15] MEDS: Pantoprazole 40 mg EC Tab PO SCH (05:46)
[2018-08-15 06:34] VITALS: O2SAT 96
--- NOTE | 2018-08-15 07:21 | CP.PCM.PN ---
Subjective - Date & Time of Evaluation Date of Evaluation: 08/15/18 Time of Evaluation: 06:45 - Subjective Subjective: Feels better today, verbalized he was out of bed yesterday and able to walk, denies shortness of breath at rest Reason for consultation and follow up: Cardiac evaluation of shortness of breath,exacerbation of COPD, rapid ventricular rate atrial fibrillation, Seen and examined by me and Dr. Samuel Objective - Vital Signs/Intake and Output Vital Signs (last 24 hours): Temp Pulse Resp BP Pulse Ox 97.3 F L 70 19 106/77 96 08/15/18 06:00 08/15/18 06:00 08/15/18 06:00 08/15/18 06:00 08/15/18 06:00 Intake and Output: 08/15/18 08/15/18 06:59 18:59 Intake Total 720 Output Total 1300 Balance -580 - Medications Medications: Current Medications Alprazolam (Xanax) 0.5 mg PO BID PRN; Protocol PRN Reason: Anxiety Last Admin: 08/14/18 22:47 Dose: 0.5 mg Arformoterol Tartrate (Brovana) 15 mcg IH [id number] [facility] Last Admin: 08/14/18 20:40 Dose: 15 mcg Aspirin (Ecotrin) 81 mg PO DAILY [facility] Last Admin: 08/14/18 10:19 Dose: 81 mg Atorvastatin Calcium (Lipitor) 10 mg PO DAILY [facility] Last Admin: 08/14/18 10:19 Dose: 10 mg Azithromycin (Zithromax) 500 mg PO DAILY [facility] Last Admin: 08/14/18 10:18 Dose: 500 mg Budesonide (Pulmicort Respules) 0.5 mg IH BIDRESP [facility] Last Admin: 08/14/18 20:41 Dose: 0.5 mg Enoxaparin Sodium (Lovenox) 40 mg SC DAILY [facility]; Protocol Last Admin: 08/14/18 11:23 Dose: 40 mg Fluticasone Propionate (Flonase) 1 actuation NS DAILY [facility] Last Admin: 08/14/18 10:00 Dose: 1 applic Home Med (Home Med) 1 unit PO ACB [facility] Last Admin: 08/14/18 06:57 Dose: 1 unit Ceftriaxone Sodium (Rocephin 1 Gram Ivpb) 1 gm in 100 mls @ 100 mls/hr IVPB DAILY [facility]; Protocol Last Admin: 08/14/18 10:15 Dose: 100 mls/hr Levalbuterol HCl (Xopenex) 0.63 mg IH Q2 PRN PRN Reason: Shortness of Breath Last Admin: 08/13/18 09:55 Dose: 0.63 mg Levalbuterol HCl (Xopenex) 0.63 mg IH [id number] [facility] Last Admin: 08/15/18 01:56 Dose: 0.63 mg Methylprednisolone (Solu-Medrol) 40 mg IV Q12 [facility] Last Admin: 08/14/18 22:46 Dose: 40 mg Oxycodone HCl (Oxycontin Extended Release Tab) 20 mg PO Q12 [facility] Last Admin: 08/14/18 22:46 Dose: 20 mg Oxycodone HCl (Oxycodone Immediate Release Tab) 10 mg PO BID PRN PRN Reason: moderate pain (4-7) Last Admin: 08/14/18 07:02 Dose: 10 mg Pantoprazole Sodium (Protonix Ec Tab) 40 mg PO 0600 [facility] Last Admin: 08/15/18 05:46 Dose: 40 mg Roflumilast (Daliresp) 500 mcg PO DAILY [facility] Last Admin: 08/14/18 10:28 Dose: 500 mcg Sotalol HCl (Betapace) 80 mg PO BID [facility] Last Admin: 08/14/18 18:44 Dose: 80 mg Verapamil HCl (Verapamil Inj) 5 mg IVP Q6 PRN PRN Reason: Heart rate Last Admin: 08/10/18 18:56 Dose: 5 mg Verapamil HCl (Calan Sr Tab) 120 mg PO DAILY [facility] Last Admin: 08/14/18 10:19 Dose: 120 mg - Labs Labs: 08/13/18 06:00 08/14/18 08:00 PT 10.2 SECONDS (9.4-12.5) 08/07/18 12:50 INR 0.89 08/07/18 12:50 APTT 24.7 Seconds (25.1-36.5) L 08/07/18 12:50 - Constitutional Appears: Non-toxic, No Acute Distress - Head Exam Head Exam: NORMAL INSPECTION, NORMOCEPHALIC - Eye Exam Eye Exam: Normal appearance Pupil Exam: NORMAL ACCOMODATION - ENT Exam ENT Exam: Mucous Membranes Moist, Normal Exam - Respiratory Exam Respiratory Exam: Decreased Breath Sounds, Clear to Ausculation Bilateral, NORMAL BREATHING PATTERN - Cardiovascular Exam Cardiovascular Exam: REGULAR RHYTHM, +S1, +S2 - GI/Abdominal Exam GI & Abdominal Exam: Soft, Normal Bowel Sounds - Extremities Exam Extremities Exam: Full ROM, Normal Capillary Refill - Neurological Exam Neurological Exam: Alert, Awake, Oriented x3 - Psychiatric Exam Psychiatric exam: Normal Affect, Normal Mood - Skin Skin Exam: Dry, Normal Color, Warm Assessment and Plan - Assessment and Plan (Free Text) Assessment: A 58 year olf male who came in to the ER due to shortness of breath. History of COPD, chronic atrial fibrillation, radiofrequency ablation 06/2017, converted to normal sinus rhythm, hypertension,chronic back pain with kyphoplasty, Non- STEMI, non-obstructive coronary artery disease, cardiomyopathy,LVEF 48% from Echo last 09/08/2017. Admitted for exacerbation of COPD. Had episode of rapid atrial fibrillation, Cardizem bolus given and started on Cardizem drip. Heart rate controlled,converted to normal sinus rhythm.Cardizem drip discontinued and switched to oral cardizem. Restarted back Sotalol. Supposed to start Eliquis however had history of massive GI bleeding requiring blood transfusion. Will hold off Eliquis. Converted to Normal sinus rhythm. Moderate shortness of breath walking back from bathroom. No wheezing, Bipap in use. Cardiac status stable.Physical therapy. Plan: Feels better today, able to walk and out of bed to chair yesterday Denies shortness of breath at rest Instructed gradual increase of activity Pulmonary on consult Cardiac status stable Normal sinus rhythm controlled/maintained Blood pressure controlled On ASA 81 mg daily. Lasix 40 mg daily,Solumedrol 40 mg every 12 hours Potassium chloride 10 meq daily, Sotalol 80 mg BID, Calan SR 120 mg daily Continue current treatment Continue IV antibiotics as ordered Physical therapy Will follow up Plan and treatment discussed with
[2018-08-15] MEDS: Budesonide 0.5 mg/2 ml Inhal Susp UD IH SCH (07:30)
[2018-08-15] MEDS: Arformoterol 15 mcg/2 ml Inh Sol IH SCH (07:30)
--- NOTE | 2018-08-15 07:57 | PN ---
DATE: 08/15/2018 PULMONARY NOTE SUBJECTIVE: The patient appears very comfortable this morning. He is not short of breath at rest. PHYSICAL EXAMINATION: VITALS: Temperature is 97.3, pulse 69, respirations 19, blood pressure 106/77. Oxygen saturation on nasal cannula is 96%. HEENT: Normocephalic, atraumatic. No JVD. CARDIOVASCULAR: Systolic ejection murmur at the lower left sternal border. No S3 gallop. LUNGS: Very minimal/less rhonchi. No wheezing. EXTREMITIES: Mild edema. No cyanosis. No clubbing. Calves are nontender to palpation. GASTROINTESTINAL: Abdomen is soft, nontender, and nondistended. Bowel sounds are positive. SKIN: No acute rash. NEUROLOGIC: Exam limited at the present time. IMPRESSION: 1. Recurrent bronchitis. 2. Advanced chronic obstructive pulmonary disease. 3. Paroxysmal atrial fibrillation. 4. Coronary artery disease. PLAN: The patient appears very comfortable this morning. He is not short of breath at rest. He does state to feeling much better overall. On physical exam, there is no significant bronchospasm noted. In addition, there is no significant alveolar-arterial gradient. I will continue the current nebulizer treatments and decrease the intravenous steroids this morning. The patient also remains on nasal steroids. Inputs by Cardiology are also noted. Clinical status of the patient appears significantly improved - compared to his initial presentation. However, given he above, the future status/prognosis for this patient does remain somewhat guarded. I will discuss the above with the attending physician. Mane Pineda MD MTDRoberto
[2018-08-15] MEDS: LINACLOTIDE 145 MCG PO SCH (08:45)
--- NOTE | 2018-08-15 09:50 | PN ---
DATE: 08/15/2018 REASON FOR CONSULTATION AND FOLLOWUP: Shortness of breath with exacerbation of COPD, history of SVT status post radiofrequency ablation for AFib. This note is in addition to dictated by nurse practitioner, Jenny Castanon. SUBJECTIVE: The patient remained stable. No further episode of arrhythmia noted. The earlier reported arrhythmia was artifact. The patient is stable. RECOMMENDATIONS: Continue verapamil, continue sotalol, discontinue telemetry, continue aspirin, discharge patient is stable from Cardiology point of view. The patient has a GI bleed, so not on Eliquis, but starting DVT prophylaxis was patient lying all the time in bed. Yesterday, also a physical therapy ordered, and we will discontinue telemetry and community mental health social worker for discharge planning. We will discontinue telemetry. Thank you Dr. Bowman for opportunity in taking care of the patient, Rachael. Shaila Samuel MD
[2018-08-15] MEDS ORDERED: MethylPREDNISolone 40 mg Vial IVP SCH (10:00)
[2018-08-15] MEDS: Enoxaparin 40 mg Syringe SC SCH (10:04)
[2018-08-15] MEDS: Fluticasone Nasal 50 mcg/Spray NS SCH (10:04)
[2018-08-15] MEDS: cefTRIAXone 1 gm 1 GM/100 ML BAG IVPB SCH (10:05)
[2018-08-15] MEDS: oxyCODONE 20 mg ER Tab (oxyCONTIN) PO SCH (10:06)
[2018-08-15] MEDS: Verapamil 120 mg ER Tab PO SCH (10:11)
[2018-08-15] MEDS ORDERED: POLYETHYLENE GLYCOL 3350 17 GM/Dose PACKET PO SCH (11:00)
--- NOTE | 2018-08-15 11:10 | CP.PCM.APN ---
Subjective - Date & Time of Evaluation Date of Evaluation: 08/15/18 Time of Evaluation: 11:16 - Subjective Subjective: pt seenan d examined at bedside, c/o feeling bloated but is passing gas and having regular BMs, oob encouraged Review of Systems - Gastrointestinal Gastrointestinal: Bloating Objective - Vital Signs/Intake and Output Vital Signs (last 24 hours): Temp Pulse Resp BP Pulse Ox 97.3 F L 85 19 139/85 96 08/15/18 06:00 08/15/18 10:11 08/15/18 06:00 08/15/18 10:11 08/15/18 06:00 Intake and Output: 08/15/18 08/15/18 06:59 18:59 Intake Total 720 Output Total 1300 Balance -580 - Medications Medications: Current Medications Alprazolam (Xanax) 0.5 mg PO BID PRN; Protocol PRN Reason: Anxiety Last Admin: 08/14/18 22:47 Dose: 0.5 mg Arformoterol Tartrate (Brovana) 15 mcg IH [id number] [facility] Last Admin: 08/15/18 07:30 Dose: 15 mcg Aspirin (Ecotrin) 81 mg PO DAILY [facility] Last Admin: 08/15/18 10:05 Dose: 81 mg Atorvastatin Calcium (Lipitor) 10 mg PO DAILY [facility] Last Admin: 08/15/18 10:05 Dose: 10 mg Azithromycin (Zithromax) 500 mg PO DAILY [facility] Last Admin: 08/15/18 10:03 Dose: 500 mg Budesonide (Pulmicort Respules) 0.5 mg IH BIDRESP [facility] Last Admin: 08/15/18 07:30 Dose: 0.5 mg Enoxaparin Sodium (Lovenox) 40 mg SC DAILY [facility]; Protocol Last Admin: 08/15/18 10:04 Dose: 40 mg Fluticasone Propionate (Flonase) 1 actuation NS DAILY [facility] Last Admin: 08/15/18 10:04 Dose: 1 applic Home Med (Home Med) 1 unit PO ACB [facility] Last Admin: 08/15/18 08:45 Dose: 1 unit Ceftriaxone Sodium (Rocephin 1 Gram Ivpb) 1 gm in 100 mls @ 100 mls/hr IVPB DAILY [facility]; Protocol Last Admin: 08/15/18 10:05 Dose: 100 mls/hr Levalbuterol HCl (Xopenex) 0.63 mg IH Q2 PRN PRN Reason: Shortness of Breath Last Admin: 08/13/18 09:55 Dose: 0.63 mg Levalbuterol HCl (Xopenex) 0.63 mg IH [id number] [facility] Last Admin: 08/15/18 07:30 Dose: 0.63 mg Methylprednisolone (Solu-Medrol) 30 mg IVP Q12 [facility] Last Admin: 08/15/18 10:04 Dose: 30 mg Oxycodone HCl (Oxycontin Extended Release Tab) 20 mg PO Q12 [facility] Last Admin: 08/15/18 10:06 Dose: 20 mg Oxycodone HCl (Oxycodone Immediate Release Tab) 10 mg PO BID PRN PRN Reason: moderate pain (4-7) Last Admin: 08/14/18 07:02 Dose: 10 mg Pantoprazole Sodium (Protonix Ec Tab) 40 mg PO 0600 [facility] Last Admin: 08/15/18 05:46 Dose: 40 mg Polyethylene Glycol (Miralax) 17 gm PO DAILY [facility] Roflumilast (Daliresp) 500 mcg PO DAILY [facility] Last Admin: 08/15/18 10:06 Dose: 500 mcg Sotalol HCl (Betapace) 80 mg PO BID [facility] Last Admin: 08/15/18 10:11 Dose: 80 mg Verapamil HCl (Verapamil Inj) 5 mg IVP Q6 PRN PRN Reason: Heart rate Last Admin: 08/10/18 18:56 Dose: 5 mg Verapamil HCl (Calan Sr Tab) 120 mg PO DAILY [facility] Last Admin: 08/15/18 10:11 Dose: 120 mg - Labs Labs: 08/13/18 06:00 08/14/18 08:00 PT 10.2 SECONDS (9.4-12.5) 08/07/18 12:50 INR 0.89 08/07/18 12:50 APTT 24.7 Seconds (25.1-36.5) L 08/07/18 12:50 - Constitutional Appears: No Acute Distress - Eye Exam Eye Exam: Normal appearance - Respiratory Exam Respiratory Exam: Decreased Breath Sounds, NORMAL BREATHING PATTERN - Cardiovascular Exam Cardiovascular Exam: +S1, +S2 - GI/Abdominal Exam GI & Abdominal Exam: Soft, Normal Bowel Sounds - Neurological Exam Neurological Exam: Alert, Awake - Skin Skin Exam: Dry, Intact Assessment and Plan - Assessment and Plan (Free Text) Plan: 58 yr old white male with pmh sig for advanced copd on 3l home o2, afib, chf/ dilated cm, mi, htn chronic back pain admitted with worsening LE edema, sob and cough s/p BIPAP treatment now for further mgmt and treatment with cardiac consultation on board for afib with RVR and pul consultation. #advanced copd/ resp insufficiency pt already has 3L o2 at home iV solumerol - being tapered by Pulmonary #Parox afib - episode of rapid afib cardiology consultation with Dr Samuel spoke to Dr Samuel re medication regimen Pt had rapid afib and is now s/p cardizem drip - now on PO meds with Betapace and Verapamil 120mg daily cardiology notes reviewed - stable cardiac status # htn continue present mgmt stable Discussed plan of care with PMD and pulmonary , continue to taper steroids, pt now agrees to TCU that he previously refused - per discussion with PMD, will enter eval and follow up. will continue to follow Cecilia Bowen APN BPCI/TIC - BPCIA/TIC Educated pt/family on BPCIA/CIR/Med to Bed Programs: Yes Flyers given, including CMS Beneficiary letter: Yes Pt/family verbalized understanding & agreed to program: Yes
[2018-08-15] MEDS ORDERED: Simethicone 80 mg Chewtab PO PRN (11:13)
[2018-08-15 12:46] VITALS: PULSE 78; RESP 20
[2018-08-15 17:18] VITALS: BP 122/76
[2018-08-15] MEDS: Levalbuterol 0.63 MG/3 ML Inhal Soln UD IH PRN (17:41)
[2018-08-15 18:23] VITALS: TEMP 98
--- NOTE | 2018-08-16 08:30 | PN ---
DATE: 08/15/2018 SUBJECTIVE: The patient is 58 years old, seen and examined, complained of feeling bloated, going to bathroom regularly, complained of back pain, shortness of breath is better, will get short of breath when walking small distance. PHYSICAL EXAMINATION: VITAL SIGNS: The patient is afebrile, pulse 85, respirations 19, blood pressure 139/85. LUNGS: Bilateral few expiratory rhonchi in the upper lung region. HEART: S1 and S2 audible. ABDOMEN: Soft, obese, nontender. No rebound. No guarding. NEUROLOGIC: The patient is awake, alert, oriented, able to communicate. Moves all extremities. No leg edema. ASSESSMENT: 1. Chronic obstructive pulmonary disease exacerbation. 2. Brief episode of atrial fibrillation converted to sinus rhythm. 3. Hypertension. 4. History of anemia and gastrointestinal bleed when he was on Eliquis. 5. Status post ablation for atrial fibrillation and now in sinus rhythm. 6. Nonischemic cardiomyopathy. 7. Degenerative disc disease status post multiple kyphoplasty. PLAN: The patient is still deconditioned, not ready to go home, has exertional dyspnea and needs some rehab and close observation and steroids; and TCU evaluation has been requested. If accepted, he can be transferred to TCU today. Ross Bowman MD
--- NOTE | 2018-08-16 21:55 | CON ---
DATE: 08/16/2018 The patient in transition care unit 314, bed 1. REASON FOR CONSULTATION: Exacerbation of COPD, atrial fibrillation, supraventricular tachycardia, hypertension, and deconditioning. HISTORY OF PRESENT ILLNESS: The patient is 58-year-old male who is known to us. He has COPD, hypertension, chronic back pain due to spinal problems, history of atrial fibrillation which has been paroxysmal type, status post radiofrequency ablation. Once he was told that he had cardiomyopathy. The patient was admitted to medical floor with severe shortness of breath and was found to have exacerbation of COPD. He also had swelling on the legs. The patient also had runs of atrial fibrillation and SVT on telemetry floor which was treated with medication. The patient went to sinus rhythm. The patient was admitted to transitional care unit for deconditioning and for physical therapy. The patient denies any chest pain and palpitations. The patient states compared to admission time, his breathing has improved. PAST MEDICAL HISTORY: Significant for COPD, atrial fibrillation, radiofrequency ablation in 06/2017, status post cardiac catheterization which showed nonobstructive coronary artery disease. One time, the patient was admitted with non-STEMI and probably had thrombus formed LV going into the coronaries. Later on, patient showed improvement in LV function. Cath was done in 11/2013 when patient was admitted with non-STEMI, history of COPD, history of sepsis, history of back pain with history of kyphoplasty. The patient also had massive GI bleeding when he was put on anticoagulation due to paroxysmal atrial fibrillation. Since then, the patient has not been put on anticoagulation and family also refuses any anticoagulation. PREVIOUS CARDIAC WORKUP: The patient had cardiac catheterization in 11/2013, which showed normal coronaries. Cardiomyopathy was secondary to probably thrombus in the coronary. Later on, MUGA scan showed ejection fraction significantly improved to 54%. As mentioned before, the patient had presented with non-STEMI at that time most likely secondary to thrombus, went from LV to the coronaries and then serial MUGA scan was done on 05/09/2014 which showed ejection of 65%. In 10/2013, it showed 54% ejection fraction. Most recent echo was done on 06/01/2017 that showed borderline LV function which was within normal limits. Mild pulmonary hypertension. Last echo was done at [facility] on 09/08/2017 read by Emily which showed systolic function, borderline RV systolic function moderately reduced, mild tricuspid regurgitation, [id number] pulmonary hypertension, ejection fraction 48%. RVSP about 47 mm/Hg. PERSONAL HISTORY: The patient denies smoking. Denies drinking. MEDICATIONS: Prior to admission on medical floor, the patient at home was on prednisone 5 b.i.d., oxycodone for pain, sotalol 80 b.i.d., potassium 10 mEq daily, Protonix 40 daily, Lovenox 40 mg subcutaneous daily, Pulmicort Respules, Xanax 0.5 b.i.d. REVIEW OF SYSTEMS: All the system reviewed, positive mentioned in the history, otherwise negative. PHYSICAL EXAMINATION: VITAL SIGNS: Blood pressure 121/76, respirations 18, pulse 79, temperature 97.4. LABORATORY DATA: On 08/13/2018, WBC 16.2, hemoglobin 14.1, hematocrit 43.3, and platelets 223. On 08/14/2018, sodium 136, potassium 4.9, BUN 28, creatinine 0.6. Random glucose 173. Magnesium 2.5. Phosphorous 4.0. . On 08/07/2018, NT-proB natriuretic peptide was 395. Chest x-ray on 08/14/2018, lungs are clear. EKG shows normal sinus rhythm with left axis deviation and incomplete right bundle-branch block, Q3 and aVF possible old inferior [place]. DIAGNOSES: 1. Deconditioning. 2. Paroxysmal atrial fibrillation. 3. Exacerbation of chronic obstructive pulmonary disease. 4. History of right heart dysfunction. 5. Jnpy-vo-rfgnwqhz pulmonary hypertension. 6. History of cardiomyopathy in the past. 7. Mild left ventricular dysfunction. 8. History of chronic paroxysmal atrial fibrillation, status post ablation. 9. Hypertension. 10. History of anemia. 11. Back pain. 12. Kyphoplasty of spine. 13. History of gastrointestinal bleeding anticoagulation for atrial fibrillation. PLAN: Continue physical therapy for deconditioning. We will continue sotalol 80 mg b.i.d., verapamil ER 120 mg daily, aspirin 81 mg daily, atorvastatin 10 daily, famotidine 20 mg b.i.d., ceftriaxone 1 g IV daily, Xopenex and nebulizer therapy, azithromycin 500 mg p.o. daily. Once the patient is stabilized and gets physical therapy, then we will reconsider for second ablation for supraventricular tachycardia and atrial fibrillation and we will continue to follow up. Shaila Resendez MD
== END 2018-08-15 18:59 | DRG 190 ==
LOC: ED 11:56 → ERH 13:25 → 2RSO 19:13
PROVIDERS: ADMIT Internal Medicine; ATTEND Internal Medicine
PROC: 5A09357 Assistance with Respiratory Ventilation, Less than 24 Consecutive Hours, Continuous Positive Airway Pressure (ICD-10-PCS; principal; 2018-08-07)
PROC: 3E0F7GC Introduction of Other Therapeutic Substance into Respiratory Tract, Via Natural or Artificial Opening (ICD-10-PCS; 2018-08-08)
PROC: 5A09457 Assistance with Respiratory Ventilation, 24-96 Consecutive Hours, Continuous Positive Airway Pressure (ICD-10-PCS; 2018-08-12)
DX: J44.1 Chronic obstructive pulmonary disease with (acute) exacerbation (principal); I50.23 Acute on chronic systolic (congestive) heart failure; I42.0 Dilated cardiomyopathy; I11.0 Hypertensive heart disease with heart failure; I48.2 Chronic atrial fibrillation; I48.0 Paroxysmal atrial fibrillation; I27.20 Pulmonary hypertension, unspecified; I25.10 Atherosclerotic heart disease of native coronary artery without angina pectoris; Z99.81 Dependence on supplemental oxygen; M54.9 Dorsalgia, unspecified; G89.29 Other chronic pain; E11.36 Type 2 diabetes mellitus with diabetic cataract; D64.9 Anemia, unspecified; E78.5 Hyperlipidemia, unspecified; I25.2 Old myocardial infarction

== ENCOUNTER 2018-08-15 18:59 | Inpatient (IN) | payer OTHER, MEDICAID ==
[2018-08-15] MEDS ORDERED: Levalbuterol 0.63 MG/3 ML Inhal Soln UD IH PRN (20:28)
[2018-08-15] MEDS ORDERED: Simethicone 80 mg Chewtab PO PRN (20:34)
[2018-08-15] MEDS: MethylPREDNISolone 40 mg Vial IVP SCH (22:56)
[2018-08-15] MEDS: oxyCODONE 20 mg ER Tab (oxyCONTIN) PO SCH (22:56)
[2018-08-16] MEDS: Levalbuterol 0.63 MG/3 ML Inhal Soln UD IH SCH ×4 (02:15→19:24)
[2018-08-16 03:55] VITALS: BMI 26.7
[2018-08-16] MEDS ORDERED: Pneumococcal 23-Valent Vaccine IM ONE (03:59)
[2018-08-16] MEDS: cefTRIAXone 1 gm 1 GM/100 ML BAG IVPB SCH (05:18)
[2018-08-16] MEDS ORDERED: Enoxaparin 40 mg Syringe SC SCH (06:00)
[2018-08-16] MEDS: Arformoterol 15 mcg/2 ml Inh Sol IH SCH ×2 (07:15→19:24)
[2018-08-16] MEDS: Budesonide 0.5 mg/2 ml Inhal Susp UD IH SCH ×2 (07:15→19:24)
[2018-08-16] MEDS: LINACLOTIDE PO SCH (07:28)
--- NOTE | 2018-08-16 09:32 | PN ---
DATE: 08/16/2018 SUBJECTIVE: The patient appears comfortable this morning. He is not short of breath at rest. PHYSICAL EXAMINATION: VITAL SIGNS: Temperature is 98, pulse 69, respirations 18/20, blood pressure 125/83. Oxygen saturation on nasal cannula is 96%. HEENT: Normocephalic, atraumatic. No JVD. CARDIOVASCULAR: Systolic ejection murmur at the lower left sternal border. No S3 gallop. LUNGS: Minimal rhonchi bilaterally. No wheezing. EXTREMITIES: Mild edema. No cyanosis, no clubbing. Calves are nontender to palpation. GASTROINTESTINAL: Abdomen is soft, nontender, nondistended. Bowel sounds are positive. SKIN: No acute rash. NEUROLOGIC: Exam limited at the present time. IMPRESSION: 1. Recurrent bronchitis. 2. Advanced chronic obstructive pulmonary disease. 3. Paroxysmal atrial fibrillation. 4. Coronary artery disease. PLAN The patient appears comfortable this morning. He is not short of breath at rest. He does state to feeling much better overall. On physical exam, there is only mild bronchospasm noted. In addition, there is no significant alveolar-arterial gradient. I will continue the current nebulizer treatments and current low-dose intravenous steroids for now. The patient also remains on nasal steroids. Input by Cardiology is also noted. Clinical status of the patient is significantly improved - compared to the initial presentation. However, given the above, the future status/prognosis for this patient does remain guarded. The patient is now on the transitional unit where he will participate with physical therapy. I will discuss the above with Dr. Bowman. Mane Pineda MD MTDRoberto
[2018-08-16] MEDS: Verapamil 120 mg ER Tab PO SCH (09:39)
[2018-08-16] MEDS: Fluticasone Nasal 50 mcg/Spray NS SCH (09:41)
[2018-08-16] MEDS: POLYETHYLENE GLYCOL 3350 17 GM/Dose PACKET PO SCH (09:42)
[2018-08-16] MEDS: oxyCODONE 20 mg ER Tab (oxyCONTIN) PO SCH ×2 (09:45→21:38)
[2018-08-16] MEDS: MethylPREDNISolone 40 mg Vial IVP SCH (09:45)
[2018-08-16] MEDS ORDERED: MethylPREDNISolone 40 mg Vial IVP SCH (12:52)
--- NOTE | 2018-08-16 21:55 | CON ---
DATE: 08/16/2018 The patient in transition care unit 314, bed 1. REASON FOR CONSULTATION: Exacerbation of COPD, atrial fibrillation, supraventricular tachycardia, hypertension, and deconditioning. HISTORY OF PRESENT ILLNESS: The patient is 58-year-old male who is known to us. He has COPD, hypertension, chronic back pain due to spinal problems, history of atrial fibrillation which has been paroxysmal type, status post radiofrequency ablation. Once he was told that he had cardiomyopathy. The patient was admitted to medical floor with severe shortness of breath and was found to have exacerbation of COPD. He also had swelling on the legs. The patient also had runs of atrial fibrillation and SVT on telemetry floor which was treated with medication. The patient went to sinus rhythm. The patient was admitted to transitional care unit for deconditioning and for physical therapy. The patient denies any chest pain and palpitations. The patient states compared to admission time, his breathing has improved. PAST MEDICAL HISTORY: Significant for COPD, atrial fibrillation, radiofrequency ablation in 06/2017, status post cardiac catheterization which showed nonobstructive coronary artery disease. One time, the patient was admitted with non-STEMI and probably had thrombus formed LV going into the coronaries. Later on, patient showed improvement in LV function. Cath was done in 11/2013 when patient was admitted with non-STEMI, history of COPD, history of sepsis, history of back pain with history of kyphoplasty. The patient also had massive GI bleeding when he was put on anticoagulation due to paroxysmal atrial fibrillation. Since then, the patient has not been put on anticoagulation and family also refuses any anticoagulation. PREVIOUS CARDIAC WORKUP: The patient had cardiac catheterization in 11/2013, which showed normal coronaries. Cardiomyopathy was secondary to probably thrombus in the coronary. Later on, MUGA scan showed ejection fraction significantly improved to 54%. As mentioned before, the patient had presented with non-STEMI at that time most likely secondary to thrombus, went from LV to the coronaries and then serial MUGA scan was done on 05/09/2014 which showed ejection of 65%. In 10/2013, it showed 54% ejection fraction. Most recent echo was done on 06/01/2017 that showed borderline LV function which was within normal limits. Mild pulmonary hypertension. Last echo was done at [facility] on 09/08/2017 read by Emily which showed systolic function, borderline RV systolic function moderately reduced, mild tricuspid regurgitation, [id number] pulmonary hypertension, ejection fraction 48%. RVSP about 47 mm/Hg. PERSONAL HISTORY: The patient denies smoking. Denies drinking. MEDICATIONS: Prior to admission on medical floor, the patient at home was on prednisone 5 b.i.d., oxycodone for pain, sotalol 80 b.i.d., potassium 10 mEq daily, Protonix 40 daily, Lovenox 40 mg subcutaneous daily, Pulmicort Respules, Xanax 0.5 b.i.d. REVIEW OF SYSTEMS: All the system reviewed, positive mentioned in the history, otherwise negative. PHYSICAL EXAMINATION: VITAL SIGNS: Blood pressure 121/76, respirations 18, pulse 79, temperature 97.4. LABORATORY DATA: On 08/13/2018, WBC 16.2, hemoglobin 14.1, hematocrit 43.3, and platelets 223. On 08/14/2018, sodium 136, potassium 4.9, BUN 28, creatinine 0.6. Random glucose 173. Magnesium 2.5. Phosphorous 4.0. . On 08/07/2018, NT-proB natriuretic peptide was 395. Chest x-ray on 08/14/2018, lungs are clear. EKG shows normal sinus rhythm with left axis deviation and incomplete right bundle-branch block, Q3 and aVF possible old inferior [place]. DIAGNOSES: 1. Deconditioning. 2. Paroxysmal atrial fibrillation. 3. Exacerbation of chronic obstructive pulmonary disease. 4. History of right heart dysfunction. 5. Xpvt-ft-omvrydzn pulmonary hypertension. 6. History of cardiomyopathy in the past. 7. Mild left ventricular dysfunction. 8. History of chronic paroxysmal atrial fibrillation, status post ablation. 9. Hypertension. 10. History of anemia. 11. Back pain. 12. Kyphoplasty of spine. 13. History of gastrointestinal bleeding anticoagulation for atrial fibrillation. PLAN: Continue physical therapy for deconditioning. We will continue sotalol 80 mg b.i.d., verapamil ER 120 mg daily, aspirin 81 mg daily, atorvastatin 10 daily, famotidine 20 mg b.i.d., ceftriaxone 1 g IV daily, Xopenex and nebulizer therapy, azithromycin 500 mg p.o. daily. Once the patient is stabilized and gets physical therapy, then we will reconsider for second ablation for supraventricular tachycardia and atrial fibrillation and we will continue to follow up. Shaila Resendez MD
--- NOTE | 2018-08-16 22:05 | HP ---
DATE OF EXAM: 08/16/2018 HISTORY OF PRESENT ILLNESS: The patient is a 58-year-old came to emergency room because of increasing cough, congestion, and wheezing. The patient was given IV steroids, nebulizer treatment, and inhaled steroids, started to improve, was deconditioned and complained of exertional dyspnea, and transferred to TCU for rehab and close monitoring. PAST MEDICAL HISTORY: Significant for: 1. Nonischemic cardiomyopathy. 2. History of degenerative disk disease, status post multiple angioplasties. 3. History of anemia. 4. History of AFib, had ablation then since has been on sinus rhythm, has been taken off of anticoagulant. 5. History of peptic ulcer disease. 6. History of hypertension. ALLERGIES: NOT ALLERGIC TO ANY MEDICATION. MEDICATIONS AT HOME: He is on Pulmicort. He is on Xanax, prednisone, Percocet, and Linzess. SOCIAL HISTORY: He is and lives with his . He used to be heavy smoker, but quit. 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 He quit smoking in 2012. REVIEW OF SYSTEMS: Significant for chronic back pain, significant for chest pain, and significant for shortness of breath with minimal exertion. PHYSICAL EXAMINATION: GENERAL: He is awake, alert, oriented, and communicative. VITAL SIGNS: He is afebrile, pulse 79, respirations 18, and blood pressure 121/76. LUNGS: Bilateral fair airflow. No rhonchi or crackle. HEART: S1 and S2 audible. ABDOMEN: Soft and nontender. No rebound. No guarding. NEUROLOGIC: He is awake, alert, oriented, and communicative. ASSESSMENT: 1. Chronic obstructive pulmonary disease exacerbation. 2. Congestive heart failure, stable. 3. Nonischemic cardiomyopathy. 4. Chronic degenerative disk disease, status post multiple kyphoplasties. 5. History of atrial fibrillation, status post ablation. PLAN: We will cut down his steroid to 20 every 12 hours. Continue him on Rocephin and Zithromax. The patient will finish his course of seven days tomorrow. We will discontinue antibiotics after tomorrow and he is requesting to discontinue Lovenox. He states he feels nervous. He assured that he will keep on moving his leg and do leg exercise while he is in bed, cut down his Solu-Medrol to 20 every 12 hours, and started him on SCDs. We will follow up. Ross Bowman MD
[2018-08-17] MEDS: Levalbuterol 0.63 MG/3 ML Inhal Soln UD IH SCH ×3 (01:46→13:34)
[2018-08-17] MEDS: cefTRIAXone 1 gm 1 GM/100 ML BAG IVPB SCH (05:24)
[2018-08-17] MEDS: MethylPREDNISolone 40 mg Vial IVP SCH ×2 (05:27→17:22)
[2018-08-17] MEDS: Arformoterol 15 mcg/2 ml Inh Sol IH SCH ×2 (08:02→19:40)
[2018-08-17] MEDS: Budesonide 0.5 mg/2 ml Inhal Susp UD IH SCH ×2 (08:02→19:40)
[2018-08-17] MEDS: oxyCODONE 10 mg Immediate Release Tab PO PRN ×2 (08:14→17:26)
[2018-08-17] MEDS: LINACLOTIDE PO SCH (08:15)
--- NOTE | 2018-08-17 09:01 | PN ---
DATE: 08/17/2018 SUBJECTIVE: The patient appears very comfortable this morning. He is not short of breath at rest. OBJECTIVE: VITAL SIGNS: Temperature is 97.9, pulse 79, respirations 18/20, blood pressure 131/80. Oxygen saturation on nasal cannula - 96%. HEENT: Normocephalic, atraumatic. NECK: No JVD. CARDIOVASCULAR: Systolic ejection murmur at the lower left sternal border. No S3 gallop. LUNGS: Clear bilaterally this morning. EXTREMITIES: Mild edema. No cyanosis, no clubbing. Calves are nontender to palpation. GASTROINTESTINAL: Abdomen is soft, nontender and nondistended. Bowel sounds are positive. SKIN: No acute rash. NEUROLOGIC: Limited at the present time. IMPRESSION: 1. Recurrent bronchitis. 2. Advanced chronic obstructive pulmonary disease. 3. Paroxysmal atrial fibrillation. 4. Coronary artery disease. PLAN: The patient appears quite comfortable this morning. He is not short of breath at rest. He does state to feeling much better overall. On physical exam, his lungs are now clear. In addition, there is no significant alveolar-arterial gradient. I will continue the current nebulizer treatments and low-dose intravenous steroids (decreased yesterday) for now. The patient also remains on nasal steroids. Clinical status of the patient is significantly improved overall. I will discuss the above with the attending physician. Mane Pineda MD MTDD
[2018-08-17] MEDS: Verapamil 120 mg ER Tab PO SCH (09:55)
[2018-08-17] MEDS: POLYETHYLENE GLYCOL 3350 17 GM/Dose PACKET PO SCH (09:56)
[2018-08-17] MEDS: Fluticasone Nasal 50 mcg/Spray NS SCH (09:56)
[2018-08-17] MEDS: oxyCODONE 20 mg ER Tab (oxyCONTIN) PO SCH ×2 (09:58→21:26)
[2018-08-17] MEDS ORDERED: Magnesium Citrate Oral SOL (300 ml) PO ONE (10:27)
--- NOTE | 2018-08-17 13:54 | PN ---
DATE: 08/18/2018 LOCATION: The patient is in room 314 in Transitional Care Unit. REASON FOR CONSULTATION: Exacerbation of COPD, atrial fibrillation, supraventricular tachycardia, hypertension, and deconditioning. HISTORY OF PRESENT ILLNESS: The patient was admitted on medical floor with shortness of breath and found to have exacerbation of COPD. He also has history of paroxysmal atrial fibrillation in the past, and the patient went few episodes of paroxysmal atrial fibrillation with rapid rate, also had episodes of supraventricular tachycardia treated medically and arrhythmia was controlled and now the patient in Transitional Care Unit for deconditioning. The patient denies chest pain, palpitation. On exertion, he gets shortness of breath but he says he is much better as compared to when he was admitted to medical floor. The patient as we mentioned in our consult yesterday, the patient had history of non-STEMI and when we did cath, was found to have nonobstructive coronary artery disease. On 08/08/2018, the patient admitted with non-STEMI, probably had thrombus from LV going to the coronaries, later on this showed improvement in LV function. Cath was done on 11/29/2013 when the patient was admitted with non-STEMI. The patient also has history of kyphoplasty. The patient was on anticoagulation due to paroxysmal atrial fibrillation and he had massive GI bleeding. He came to the hospital with hemoglobin around about 5. Since then, he has been not on any anticoagulation. Family and the patient both do not want to have any anticoagulation anymore. PHYSICAL EXAMINATION VITAL SIGNS: Blood pressure is 138/74, respirations 18, pulse 79. The patient afebrile. HEENT: Head is normocephalic. Eyes; pupils normal. Conjunctivae normal. Nose and throat; normal. NECK: JVP low. Carotids equal. THORAX: AP diameter is increased. LUNGS: Few wheezing. No significant rales. CARDIOVASCULAR: S1, S2. ABDOMEN: Protuberant. No organomegaly. EXTREMITIES: No clubbing. No cyanosis. LABORATORY DATA: The patient's labs were done on 08/14/2018 and they were reported in our previous notes. DIAGNOSES: Deconditioning, paroxysmal atrial fibrillation, exacerbation of chronic obstructive pulmonary disease, history of right heart dysfunction, [id number] pulmonary hypertension, history of cardiomyopathy in the past, which improved; mild left ventricular dysfunction; history of hypertension; history of anemia; back pain; kyphoplasty of spine; history of massive gastrointestinal bleeding while the patient was on anticoagulation for atrial fibrillation. PLAN: The patient on sotalol 80 mg twice daily, verapamil ER long acting 120 mg p.o. daily, aspirin 81 mg daily, atorvastatin 10 daily, doxy 20 twice daily, ceftriaxone 1 g IV daily, methylprednisolone 20 mg IV twice daily, azithromycin 500 mg p.o. daily, Xopenex and nebulizer therapy. Shaila Resendez MD
--- NOTE | 2018-08-17 15:18 | PN ---
DATE: 08/17/2018 SUBJECTIVE: The patient is 58-year-old, seen and examined, complain of constipation, otherwise; he is doing well and participating in therapy. He started up some therapy. PHYSICAL EXAMINATION VITAL SIGNS: He is afebrile, pulse 79, respirations 18, and blood pressure 138/74. LUNGS: Bilateral diffusely decreased breath sounds. HEART: S1 and S2 audible. ABDOMEN: Soft and nontender. No rebound. No guarding. NEUROLOGICAL: The patient is awake, alert, oriented, and communicative. EXTREMITIES: Bilateral leg no edema. ASSESSMENT: 1. Chronic obstructive pulmonary disease exacerbation. 2. Congestive heart failure exacerbation. 3. History of atrial fibrillation, had ablation done. 4. Degenerative disc disease status post multiple angioplasties. PLAN: We will continue the patient on sotalol. He is on Brovana, he is on verapamil, given a dose of magnesium citrate. He is already on Linzess. Continue him on aspirin and he is on atorvastatin. Getting MiraLax everyday. He is on his analgesic. We will discontinue his antibiotics, he finished 8 days of antibiotics. Ross Bowman MD
[2018-08-18] MEDS: Levalbuterol 0.63 MG/3 ML Inhal Soln UD IH SCH ×4 (01:18→20:57)
[2018-08-18] MEDS: MethylPREDNISolone 40 mg Vial IVP SCH (05:31)
[2018-08-18] MEDS: LINACLOTIDE PO SCH (07:04)
[2018-08-18] MEDS: oxyCODONE 10 mg Immediate Release Tab PO PRN ×2 (07:04→15:26)
--- NOTE | 2018-08-18 07:25 | PN ---
DATE: 08/18/2018 PULMONARY NOTE SUBJECTIVE: The patient appears quite comfortable this morning. He is not short of breath at rest. PHYSICAL EXAMINATION: VITALS: Temperature is 98, pulse is 88, respiratory rate 18, blood pressure 117/76. Oxygen saturation on nasal cannula is 96%. HEENT: Normocephalic, atraumatic. No JVD. CARDIOVASCULAR: Systolic ejection murmur at the lower left sternal border. No S3 gallop. LUNGS: Clear bilaterally. EXTREMITIES: Mild edema. No cyanosis, no clubbing. Calves are nontender to palpation. GASTROINTESTINAL: Abdomen is soft, nontender, nondistended. Bowel sounds are positive. SKIN: No acute rash. NEUROLOGIC: Exam limited at the present time. IMPRESSION: 1. Recurrent bronchitis. 2. Advanced chronic obstructive pulmonary disease. 3. Paroxysmal atrial fibrillation. 4. Coronary artery disease. PLAN: The patient appears quite comfortable this morning. He is not short of breath at rest. He does state to feeling much better overall. On physical exam, his lungs remain clear. In addition, the oxygen saturation on nasal cannula is 96%. I will continue the current nebulizer treatments and change to oral steroids this morning. The patient also remains on nasal steroids. Inputs by Cardiology and Internal Medicine are also noted. Clinical status of the patient is significantly improved - compared to the initial presentation. However, given the above, the future status/prognosis for this patient does remain guarded. I will discuss the above with Dr. Bowman. Mane Pineda MD MTDD
[2018-08-18] MEDS: Arformoterol 15 mcg/2 ml Inh Sol IH SCH ×2 (07:33→20:57)
[2018-08-18] MEDS: Budesonide 0.5 mg/2 ml Inhal Susp UD IH SCH ×2 (07:34→20:57)
[2018-08-18] MEDS: Verapamil 120 mg ER Tab PO SCH (09:15)
[2018-08-18] MEDS: POLYETHYLENE GLYCOL 3350 17 GM/Dose PACKET PO SCH (09:16)
[2018-08-18] MEDS: oxyCODONE 20 mg ER Tab (oxyCONTIN) PO SCH ×2 (09:16→21:56)
[2018-08-18] MEDS: Fluticasone Nasal 50 mcg/Spray NS SCH (09:16)
[2018-08-18 10:10] VITALS: RESP 20
--- NOTE | 2018-08-18 17:05 | PN ---
DATE: 08/18/2018 SUBJECTIVE: The patient is 58 years old, seen and examined, doing well, sitting in chair, seem to be comfortable. No nausea or vomiting. No diarrhea. PHYSICAL EXAMINATION: VITAL SIGNS: He is afebrile, pulse 90, respirations 20, and blood pressure 139/65. LUNGS: Bilateral fair air flow, diffusely decreased breath sounds. HEART: S1 and S2 audible. ABDOMEN: Soft and nontender. No rebound. No guarding. NEUROLOGICAL: He is awake, alert, oriented, and communicative. EXTREMITIES: Moves all extremities. Bilateral leg no edema. ASSESSMENT: 1. Status post chronic obstructive pulmonary disease exacerbation. 2. History of hypertension. 3. Brief episode of atrial fibrillation, currently at sinus rhythm, status post ablation for atrial fibrillation. 4. Degenerative disk disease. 5. History of congestive obstructive pulmonary disease. 6. Nonischemic cardiomyopathy. 7. Narcotic dependence. PLAN: We will continue current medication, renew his painkiller. We will follow up. Ross Bowman MD
[2018-08-19] MEDS: Levalbuterol 0.63 MG/3 ML Inhal Soln UD IH SCH ×4 (01:49→20:36)
[2018-08-19] MEDS: oxyCODONE 10 mg Immediate Release Tab PO PRN (05:22)
[2018-08-19] MEDS: LINACLOTIDE PO SCH (06:41)
[2018-08-19] MEDS: Arformoterol 15 mcg/2 ml Inh Sol IH SCH ×2 (07:34→20:35)
[2018-08-19] MEDS: Budesonide 0.5 mg/2 ml Inhal Susp UD IH SCH ×2 (07:35→20:35)
--- NOTE | 2018-08-19 07:44 | PN ---
DATE: 08/19/2018 SUBJECTIVE: The patient appears quite comfortable this morning. He is not short of breath at rest. PHYSICAL EXAMINATION: VITAL SIGNS: (LAST NOTED IN THE COMPUTER): Temperature is 97.5, pulse 88, respirations 18/20, blood pressure 117/73. Oxygen saturation on nasal cannula is 95%. HEENT: Normocephalic, atraumatic. No JVD. CARDIOVASCULAR: Systolic ejection murmur at the lower left sternal border. No S3 gallop. LUNGS: Clear bilaterally. EXTREMITIES: Mild edema. No cyanosis, no clubbing. Calves are nontender to palpation. GASTROINTESTINAL: Abdomen is soft, nontender and nondistended. Bowel sounds are positive. SKIN: No acute rash. NEUROLOGIC: Exam limited at the present time. IMPRESSION: 1. Recurrent bronchitis. 2. Advanced chronic obstructive pulmonary disease. 3. Paroxysmal atrial fibrillation. 4. Coronary artery disease. PLAN: The patient appears quite comfortable this morning. He is not short of breath at rest. He does state to feeling much, much better overall. On physical exam, his lungs remain clear. In addition, there is no significant alveolar-arterial gradient. I will continue the current nebulizer treatments and oral steroids (changed yesterday) for now. Input by Cardiology is also noted. Clinical status of the patient is significantly improved - compared to the initial presentation. However, given the above, his future status/prognosis does remain somewhat guarded. I will discuss the above with the attending physician. Mane Pineda MD MTDD
[2018-08-19] MEDS: Verapamil 120 mg ER Tab PO SCH (09:36)
[2018-08-19] MEDS: POLYETHYLENE GLYCOL 3350 17 GM/Dose PACKET PO SCH (09:39)
[2018-08-19] MEDS: Fluticasone Nasal 50 mcg/Spray NS SCH (09:39)
[2018-08-19] MEDS: oxyCODONE 20 mg ER Tab (oxyCONTIN) PO SCH ×2 (09:47→21:21)
--- NOTE | 2018-08-19 21:32 | PN ---
DATE: 08/19/2018 SUBJECTIVE: The patient is 58 years old, seen and examined, just took showers . PHYSICAL EXAMINATION: VITAL SIGNS: He is afebrile, pulse 94, respirations 20, and blood pressure 102/64. LUNGS: Bilateral fair air flow, no rhonchi or crackle. HEART: S1 and S2 audible. ABDOMEN: Soft, obese, nontender. No rebound. No guarding. NEUROLOGICAL: The patient is awake, alert, oriented, communicative, and ambulatory. ASSESSMENT: 1. Status post chronic obstructive pulmonary disease exacerbation. 2. Nonischemic cardiomyopathy. 3. History of deep episode of atrial fibrillation, converted into sinus. 4. Status post ablation. 5. Chronic anemia, stable now. 6. Hyperthyroidism. 7. Chronic degenerative disk disease. PLAN: Currently, the patient is stable. We will continue on current medication. Discharge plan next week. Ross Bowman MD
[2018-08-20] MEDS: Levalbuterol 0.63 MG/3 ML Inhal Soln UD IH SCH ×4 (02:10→20:31)
[2018-08-20] MEDS: oxyCODONE 10 mg Immediate Release Tab PO PRN (06:45)
[2018-08-20] MEDS: LINACLOTIDE PO SCH (06:45)
--- NOTE | 2018-08-20 08:50 | PN ---
DATE: 08/20/2018 SUBJECTIVE: The patient appears quite comfortable this morning. He is not short of breath at rest. PHYSICAL EXAMINATION: VITAL SIGNS: Temperature is 97.5, pulse 84, respirations 18/20, blood pressure 114/69. Oxygen saturation on nasal cannula is 95%. HEENT: Normocephalic, atraumatic. No JVD. CARDIOVASCULAR: Systolic ejection murmur at the lower left sternal border. No S3 gallop. LUNGS: Clear bilaterally. EXTREMITIES: Mild edema. No cyanosis, no clubbing. Calves are nontender to palpation. GASTROINTESTINAL: Abdomen is soft, nontender and nondistended. Bowel sounds are positive. SKIN: No acute rash. NEUROLOGIC: Exam limited at the present time. IMPRESSION: 1. Recurrent bronchitis. 2. Advanced chronic obstructive pulmonary disease. 3. Paroxysmal atrial fibrillation. 4. Coronary artery disease. PLAN: The patient appears quite comfortable this morning. He is not short of breath at rest. He does state to feeling much better overall. On physical exam, his lungs remain clear. In addition, there is no significant alveolar-arterial gradient. I will continue the current nebulizer treatments and oral steroids for now. Clinical status of the patient is significantly improved - compared to his initial presentation. However, given the above, the future status/prognosis for this patient does remain guarded. I will discuss the above with the attending physician. Mane Pineda MD MTDD
[2018-08-20] MEDS: Budesonide 0.5 mg/2 ml Inhal Susp UD IH SCH ×2 (09:01→20:30)
[2018-08-20] MEDS: Arformoterol 15 mcg/2 ml Inh Sol IH SCH ×2 (09:01→20:30)
[2018-08-20] MEDS: Verapamil 120 mg ER Tab PO SCH (10:30)
[2018-08-20] MEDS: Fluticasone Nasal 50 mcg/Spray NS SCH (10:32)
[2018-08-20] MEDS: POLYETHYLENE GLYCOL 3350 17 GM/Dose PACKET PO SCH (10:32)
[2018-08-20] MEDS: oxyCODONE 20 mg ER Tab (oxyCONTIN) PO SCH ×2 (10:33→21:23)
--- NOTE | 2018-08-20 15:11 | PN ---
DATE: 08/20/2018 SUBJECTIVE: The patient is 58 years old, seen and examined, doing well. No nausea or vomiting. No diarrhea. Tolerating food. Shortness of breath is much better, however, gets short of breath when walking. PHYSICAL EXAMINATION VITAL SIGNS: The patient is afebrile, pulse 107, respirations 18, and blood pressure 111/69. LUNGS: Bilateral decreased breath sounds. No rhonchi noted. HEART: S1 and S2 audible. ABDOMEN: Soft, nontender. No rebound. No guarding. NEUROLOGIC: The patient is awake, alert, oriented, communicative, moves all extremities. EXTREMITIES: Bilateral leg, no edema. ASSESSMENT: 1. Chronic obstructive pulmonary disease exacerbation. 2. Bronchospasm. 3. Nonischemic cardiomyopathy. 4. History of hypertension, currently running hypotensive. 5. Chronic anemia. 6. Degenerative disk disease. PLAN: We will continue the patient on current medical regimen, continue physical therapy, renew his analgesics. Ross Bowman MD
--- NOTE | 2018-08-20 15:52 | PN ---
DATE: 08/20/2018 REASON FOR CONSULTATION AND FOLLOWUP: Exacerbation of COPD, atrial fibrillation, supraventricular tachycardia, hypertension, deconditioning of the body, status post radiofrequency ablation for atrial flutter in the past. SUBJECTIVE: The patient denies any chest pain, shortness of breath, or any palpitation. OBJECTIVE: As follows; GENERAL: Not in apparent distress. VITAL SIGNS: Temperature afebrile, heart rate 84, and blood pressure 114/69. HEENT: PERRLA. Extraocular muscles intact. NECK: Supple. No carotid bruits or thyromegaly. CHEST: Clear to auscultation. HEART: S1 and S2 regular. ABDOMEN: Soft. EXTREMITIES: Clubbing and cyanosis negative. LABORATORY DATA: Blood workup as follows; not available. IMPRESSION: A 58-year-old male obese with a past medical history significant for back pain status post kyphoplasty in the past, history of nonobstructive coronary artery status post cardiac catheterization on 11/29/2013 with the patient admitted with non-ST elevation myocardial infarction, history of paroxysmal atrial fibrillation, status post radiofrequency ablation since the patient has normal sinus atrial fibrillation, flutter, and supraventricular tachycardia; chronic obstructive pulmonary disease exacerbation; cannot tolerate Eliquis; history of massive gastrointestinal bleed, requiring 4 to 6 units of packed RBCs in the past; and history of cardiomyopathy, improved. RECOMMENDATIONS: Continue sotalol, continue verapamil, continue baby aspirin, and continue DVT prophylaxis. The patient is not on anticoagulation because of the patient had significant GI bleed in the past. Discussed with the patient at length upon discharge. The patient needs to be followed up with Dr. Amador for possible one more time, the patient may need a radiofrequency ablation to avoid long-term anticoagulation. Discussed with the patient upon discharge. The patient will contact; he will set it up for radiofrequency ablation as outpatient. We will order blood test in the morning. Thank you Dr. Bowman for providing us the opportunity in taking care of the patient, Demetrio Cano. Shaila Samuel MD
[2018-08-21] MEDS: Levalbuterol 0.63 MG/3 ML Inhal Soln UD IH SCH ×4 (02:36→20:30)
[2018-08-21] MEDS: oxyCODONE 10 mg Immediate Release Tab PO PRN (06:30)
[2018-08-21] MEDS: LINACLOTIDE PO SCH (06:31)
[2018-08-21 06:49] LABS: BASO # 0.01 K/mm3 (0.0-2.0); BASO % 0.1 % (0.0-3.0); EOS # 0.1 (0.0-0.7); EOS % 0.6 % (1.5-5.0); GRAN # 7.34 (1.4-6.5); GRAN % 84.5 % (50.0-68.0); HEMOGLOBIN 11.7 g/dL (14.0-18.0); LYMPH # 0.9 (1.2-3.4); LYMPH % 9.9 % (22.0-35.0); MEAN CELL VOLUME 88.5 fl (80.0-105.0); MEAN CORPUSCULAR HGB CONC 31.6 g/dl (31.0-37.0); MEAN PLATELET VOLUME 10.2 fl (7.0-11.0); MONO # 0.4 (0.1-0.6); MONO % 4.9 % (1.0-6.0); RBC 4.18 10^6/uL (3.5-6.1); RED CELL DISTRIBUTION WIDTH 14.3 % (11.5-14.5); WHITE BLOOD COUNT 8.7 10^3/uL (4.5-11.0)
[2018-08-21] MEDS: Budesonide 0.5 mg/2 ml Inhal Susp UD IH SCH ×2 (07:15→20:31)
[2018-08-21] MEDS: Arformoterol 15 mcg/2 ml Inh Sol IH SCH ×2 (07:15→20:31)
[2018-08-21 07:19] LABS: ALB/GLOB RATIO 1.5 (1.1-1.8); ALBUMIN 3.4 g/dL (3.0-4.8); ALT/SGPT 127 U/L (7-56); AST/SGOT 50 U/L (17-59); BLOOD UREA NITROGEN 20 mg/dL (7-21); CALCIUM 8.9 mg/dL (8.4-10.5); GFR NON-AFRICAN AMERICAN > 60
--- NOTE | 2018-08-21 08:01 | PN ---
DATE: 08/21/2018 SUBJECTIVE: The patient appears quite comfortable this morning. He is not short of breath at rest. PHYSICAL EXAMINATION: VITAL SIGNS: Last temperature recorded is 97.5, pulse this morning 88, respiratory rate 18, blood pressure 101/64. Oxygen saturation on nasal cannula is 96%. HEENT: Normocephalic, atraumatic. No JVD. CARDIOVASCULAR: Systolic ejection murmur at the lower left sternal border. No S3 gallop. LUNGS: Clear bilaterally. EXTREMITIES: Mild edema. No cyanosis, no clubbing. Calves are nontender to palpation. GASTROINTESTINAL: Abdomen is soft, nontender and nondistended. Bowel sounds are positive. SKIN: No acute rash. NEUROLOGIC: Exam limited at the present time. IMPRESSION: 1. Recurrent bronchitis. 2. Advanced chronic obstructive pulmonary disease. 3. Paroxysmal atrial fibrillation. 4. Coronary artery disease. PLAN: The patient appears quite comfortable this morning. He is not short of breath at rest. He does state to feeling much, much better overall. I did discuss the case with the night nurse at length. The night nurse stated that the patient had a very good night. On physical exam, the patient's lungs remain clear. In addition, there is certainly a decrease in the alveolar-arterial gradient. I will continue the current nebulizer treatments and low-dose oral steroids for now. Inputs by Internal Medicine and Cardiology are also noted. Clinical status of the patient is significantly improved - compared to his initial presentation. However, given the above, the future status/prognosis for this patient does remain guarded. The patient is for discharge in the near future. I will discuss the above with the attending physician. Mane Pineda MD LEANDRA
[2018-08-21] MEDS: Verapamil 120 mg ER Tab PO SCH (10:32)
[2018-08-21] MEDS: oxyCODONE 20 mg ER Tab (oxyCONTIN) PO SCH ×2 (10:33→21:27)
[2018-08-21] MEDS: POLYETHYLENE GLYCOL 3350 17 GM/Dose PACKET PO SCH (10:35)
[2018-08-21] MEDS: Fluticasone Nasal 50 mcg/Spray NS SCH (10:36)
--- NOTE | 2018-08-21 12:31 | PN ---
DATE: 08/21/2018 REASON FOR CONSULTATION: Followup, exacerbation of COPD, atrial fibrillation, supraventricular tachycardia, hypertension, deconditioning of the body, status post radiofrequency ablation for atrial fibrillation in the past. SUBJECTIVE: The patient denied any chest pain, shortness of breath, or any palpitation. OBJECTIVE: GENERAL: The patient not in apparent distress. Lying flat in bed, not in apparent distress, getting ready for breakfast. VITAL SIGNS: Temperature afebrile, heart rate 90, blood pressure 101/64. HEENT: PERRLA. Extraocular muscles are intact. NECK: Supple. No carotid bruit or thyromegaly. CHEST: Clear to auscultation. HEART: S1 and S2, regular. ABDOMEN: Soft. EXTREMITIES: Clubbing and cyanosis negative. LABORATORY DATA: Blood workup: WBC 8.3, hemoglobin 11.3, hematocrit 37, platelet count 135 as of today. Chemistry shows sodium 135, potassium 4.8, chloride 92, carbon dioxide 40, anion gap of 8, BUN 20, creatinine 0.5. Random glucose 200. AST 50, ALT 127, total protein 5.6, albumin 3.4, globulin ratio 1.5, TSH 1.18. IMPRESSION: A 58-year-old obese male with the past medical history significant for paroxysmal atrial fibrillation, status post radiofrequency ablation, history of nonischemic cardiomyopathy, history of nonobstructive coronary artery disease, non-ST segment myocardial infarction, history of cardiac catheterization 11/29/2013, non-obstructive coronary artery disease, history of multiple admissions with paroxysmal atrial fibrillation, status post radiofrequency ablation converted to remain normal sinus, but converted back again, off and on atrial fibrillation if paroxysmal, nonsustained supraventricular tachycardia. The patient is not a candidate for long-term anticoagulation because given the massive gastrointestinal bleed, on Eliquis, requiring multiple blood transfusions, admitted with acute exacerbation of chronic obstructive pulmonary disease, now in transitional care with continuity chest pain, shortness of breath or any palpitation. RECOMMENDATIONS: The patient is having eye surgery and cleared to go for the eye surgery with [id number] underlying comorbidity, though low risk procedure discussed with the patient, but eventually also the patient needs after eye surgery, one more time the patient may need radiofrequency ablation. We felt the patient is not a candidate for long-term anticoagulation because the eyes are bleeding, massive GI bleed. Interim, continue verapamil 120 mg daily, sotalol, blood pressures are tolerated. Continue atorvastatin. The patient is on narcotic for back pain as per Dr. Bowman. Continue Xopenex, avoid beta-2 agonist, dual nebulizer treatment, will put the patient in AFib. Discussed with the patient in length that upon discharge after the eye surgery, the patient needs one more time of EP study and possible radiofrequency ablation as the patient cannot take long-term anticoagulation. Possible discharge home tomorrow. Thank you Dr. Bowman for providing an opportunity in taking care of the patient, Demetrio Cano. Shaila Samuel MD cc: Ross Bowman MD.
[2018-08-21 16:06] VITALS: TEMP 97.8; O2SAT 97
[2018-08-22] MEDS: Levalbuterol 0.63 MG/3 ML Inhal Soln UD IH SCH ×3 (01:20→13:00)
[2018-08-22] MEDS: Budesonide 0.5 mg/2 ml Inhal Susp UD IH SCH (07:15)
[2018-08-22] MEDS: Arformoterol 15 mcg/2 ml Inh Sol IH SCH (07:15)
[2018-08-22] MEDS: LINACLOTIDE PO SCH (07:41)
--- NOTE | 2018-08-22 08:18 | PN ---
DATE: 08/21/2018 SUBJECTIVE: The patient is 58-year-old, seen and examined, lying in bed, seems to be comfortable. No nausea or vomiting. No diarrhea. Eating and tolerating. No chest pain. No shortness of breath. No wheezing. PHYSICAL EXAMINATION: VITAL SIGNS: He is afebrile, pulse 81, respirations 20, blood pressure 106/67. LUNGS: Bilateral fair airflow. Diffusely clear but has breath sound because of COPD. HEART: S1 and S2 audible, regular rate and rhythm. ABDOMEN: Soft, obese, nontender. No rebound. No guarding. NEUROLOGIC: Patient is awake, alert, oriented, communicative. LABORATORY DATA: WBC is 8.7, hemoglobin 11.7, hematocrit 37, platelet 135. Chemistry; sodium 136, potassium 4.3, chloride 92, CO2 of 40, BUN 20, creatinine 0.5, blood sugar of 200. ASSESSMENT: 1. Chronic obstructive pulmonary disease exacerbation. 2. Congestive heart failure exacerbation. 3. History of atrial fibrillation, status post ablation. 4. Nonischemic cardiomyopathy. 5. Chronic anemia that has resolved. 6. Degenerative disk disease, status post multiple kyphoplasty. PLAN: We will continue patient on current medication, possible discharge on Monday or . Ross Bowman MD
[2018-08-22] MEDS: oxyCODONE 20 mg ER Tab (oxyCONTIN) PO SCH (09:48)
[2018-08-22] MEDS: Verapamil 120 mg ER Tab PO SCH (09:50)
[2018-08-22] MEDS: POLYETHYLENE GLYCOL 3350 17 GM/Dose PACKET PO SCH (09:50)
[2018-08-22] MEDS: Fluticasone Nasal 50 mcg/Spray NS SCH (09:50)
[2018-08-22 09:54] VITALS: BP 103/67; PULSE 90
[2018-08-22] MEDS: oxyCODONE 10 mg Immediate Release Tab PO PRN (11:39)
--- NOTE | 2018-08-22 11:49 | PN ---
DATE: 08/22/2018 REASON FOR CONSULTATION: Followup, exacerbation of COPD, atrial fibrillation, supraventricular tachycardia, hypertension, decondition of the body, status post radiofrequency ablation for atrial fibrillation in the past. SUBJECTIVE: The patient denies any chest pain, shortness of breath, any palpitation, not in apparent distress. OBJECTIVE: GENERAL: Lying flat in the bed, even eats the breakfast. Not in apparent distress. VITAL SIGNS: Heart rate 81, blood pressure 106/67. HEENT: PERRLA. Extraocular muscles intact. NECK: Supple. No carotid bruit or thyromegaly. CHEST: Clear to auscultation. HEART: S1 and S2 regular. ABDOMEN: Soft. EXTREMITIES: Clubbing and cyanosis negative. LABORATORY DATA: Blood workup as follows: WBC 8.7, hemoglobin 11, hematocrit 37, and platelet count 135. Chemistry shows sodium 130, potassium 4.8, chloride 92, carbon dioxide 40, anion gap of 8, BUN of 20, and creatinine 0.5. TSH 1.18, total protein 5.7, albumin 3.4, albumin-globulin ratio 2.3. IMPRESSION: A 58-year-old obese male with past medical history significant for paroxysmal atrial fibrillation, status post radiofrequency ablation, history of nonischemic cardiomyopathy, history of nonobstructive coronary artery disease, history of non-ST segment myocardial infarction, history of cardiac catheterization 11/29/2013, nonobstructive coronary artery disease, history of multiple admissions, paroxysmal atrial fibrillation and chronic obstructive pulmonary disease exacerbation, history as mentioned, radiofrequency ablation at [facility]. Since then, the patient remained fairly stable. Still the patient gets short of breath and nonsustained supraventricular tachycardia. The patient admitted at this time with chronic obstructive pulmonary disease exacerbation. The patient cannot tolerate anticoagulation because of history of massive gastrointestinal bleed, required 6 units of packed red blood cell. Discussed at length with the patient, suggested that may need another radiofrequency ablation, electrophysiology study and see if any accessory pathway can be burn, so the patient can remain in normal sinus and does not require long-term anticoagulation as the patient cannot tolerate anticoagulation. For now, a wide beta-2 agonist, duo nebulizer. Continue Xopenex if needed. Continue sotalol 80 mg twice a day, continue verapamil 120 mg daily. Now, the patient is currently stable. Continue atorvastatin, possible discharge home today. Once discharged, we will schedule outpatient office visit and then radiofrequency ablation later. The patient is scheduled for bilateral cataract surgery on 08/27/2018. The patient is cleared from Cardiology point of view to go for cataract surgery. Discussed with the patient. Okay to be discharged from Cardiology point of view. Thank you Dr. Bowman for providing an opportunity in taking care of the patient, Demetrio Cano. Shaila Samuel MD
--- NOTE | 2018-08-23 00:10 | DS ---
HISTORY OF PRESENT ILLNESS: This is a 58-year-old male who came into the hospital because of acute COPD. The patient was also having shortness of breath and heart failure. He is improving. His breathing is better. He has been on transitional care unit for rehab and the patient is going to be discharge home today. PHYSICAL EXAMINATION: VITAL SIGNS: Temperature 97.8, pulse 81, blood pressure 106/67, respirations 20, O2 saturation 97%. GENERAL: The patient is lying in bed, flat, comfortable. HEENT: No oral lesion. Anicteric sclerae. Moist mucosa. NECK: No JVD, adenopathy, or thyromegaly. CARDIOVASCULAR: S1 and S2, regular. No murmurs, rubs, or gallops. LUNGS: Clear to auscultation bilaterally. No wheeze, rales, or rhonchi. ABDOMEN: Bowel sounds are positive, soft, nontender and nondistended. EXTREMITIES: No cyanosis, clubbing or edema. LABORATORY DATA: White count is 8.7 and hemoglobin 11.7. Chemistry shows a creatinine of 0.5. ASSESSMENT: 1. Acute chronic obstructive pulmonary disease. 2. Congestive heart failure secondary to systolic dysfunction. 3. Chronic anemia. 4. Degenerative disk disease, chronic pain in back. PLAN: The patient is currently on sotalol. He is going to continue Brovana. He is on verapamil for his blood pressure. He is on aspirin will be continued. He is on oxycodone for pain. The patient is receiving Xanax as needed. He is on nebulizer treatment. He receives BiPAP. He has been getting physical therapy and improving. He is going to be discharged home. FOLLOWUP: With Dr. Bowman in 1 to 2 weeks. CONDITION: Stable. ACTIVITY: Increase as tolerated. The patient says he does have medications at home at this time and does not require further medications. He will get any medications before from Dr. Bowman. Johnathon Willoughby MD
== END 2018-08-22 15:03 | disposition home or self-care (01) | DRG 191 ==
LOC: TRCU 18:59
PROVIDERS: ADMIT Internal Medicine; ATTEND Internal Medicine
PROC: 3E0F7GC Introduction of Other Therapeutic Substance into Respiratory Tract, Via Natural or Artificial Opening (ICD-10-PCS; 2018-08-15)
PROC: F07Z9FZ Gait Training/Functional Ambulation Treatment using Assistive, Adaptive, Supportive or Protective Equipment (ICD-10-PCS; principal; 2018-08-16)
PROC: F08Z4FZ Home Management Treatment using Assistive, Adaptive, Supportive or Protective Equipment (ICD-10-PCS; 2018-08-16)
PROC: 5A09357 Assistance with Respiratory Ventilation, Less than 24 Consecutive Hours, Continuous Positive Airway Pressure (ICD-10-PCS; 2018-08-16)
DX: J44.1 Chronic obstructive pulmonary disease with (acute) exacerbation (principal); I50.22 Chronic systolic (congestive) heart failure; I42.9 Cardiomyopathy, unspecified; F11.20 Opioid dependence, uncomplicated; I47.1 Supraventricular tachycardia; I11.0 Hypertensive heart disease with heart failure; D64.9 Anemia, unspecified; I27.20 Pulmonary hypertension, unspecified; I48.0 Paroxysmal atrial fibrillation; I25.10 Atherosclerotic heart disease of native coronary artery without angina pectoris; G89.29 Other chronic pain; E66.9 Obesity, unspecified; Z68.26 Body mass index [BMI] 26.0-26.9, adult; I25.2 Old myocardial infarction; Z87.891 Personal history of nicotine dependence

== ENCOUNTER 2018-08-29 02:29 | Inpatient (IN) | payer MEDICARE, MEDICAID ==
[2018-08-29 02:29] VITALS: PULSE 91; BMI 25.8
--- NOTE | 2018-08-29 03:05 | ED PDOC ---
Arrival/HPI - General Chief Complaint: Shortness Of Breath Time Seen by Provider: 08/29/18 02:30 Historian: Patient - History of Present Illness Narrative History of Present Illness (Text): 08/29/18 03:03 58 year old male, on lasix, whose past medical history includes COPD, paroxysmal atrial fibrillation, CHF, CAD, [place], hypertension, and chronic back pain, presents to the emergency department complaining of shortness of breath for the past week. Patient states he was released from the hospital a week ago, and has had progressively worsening shortness of breath since. Patient informs he had 2 episodes of shortness of breath today, which caused him to call EMS. Patient denies any fevers, chills, headache, dizziness, abdominal pain, nausea, vomiting, diarrhea, back pain, neck pain, or any other complaint. PMD: Dr. Samano Geography Head: Dr. Samuel Time/Duration: 24 hours, < week Symptom Onset: Gradual Symptom Course: Unchanged, Worsening Activities at Onset: Light Past Medical History - Provider Review Nursing Documentation Reviewed: Yes - Past History Past History: No Previous - Infectious Disease Hx of Infectious Diseases: None - Tetanus Immunization Tetanus Immunization: Unknown - Past Medical History Past Medical History: Non-Contributing - Cardiac Hx Cardiac Disorders: Yes (Cardiomyopathy, afib) - Pulmonary Hx Chronic Obstructive Pulmonary Disease (COPD): Yes - Neurological Hx Neurological Disorder: No - HEENT Hx Cataracts: Yes - Renal Hx Renal Disorder: No - Endocrine/Metabolic Hx Diabetes Mellitus Type 2: (pt denies) - Hematological/Oncological Hx Anemia: Yes (blood transfusion) - Integumentary Other/Comment: tatoos r arm, multiple skin discolorations left arm, ble dry skin, scratch morales lle, discolored skin ble - Musculoskeletal/Rheumatological Hx Falls: No - Gastrointestinal Hx Gastrointestinal Disorders: Yes (appendectomy,colon sx,gerd) - Genitourinary/Gynecological Hx Genitourinary Disorders: Yes - Psychiatric Hx Anxiety: Yes 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") - Past Surgical History Past Surgical History: Non-Contributing - Surgical History Other/Comment: Ablation (h/o afib), colon sx age 1 to remove swallowed coins, had cataract sx this am - Anesthesia Hx Anesthesia: Yes Hx Anesthesia Reactions: No Hx Malignant Hyperthermia: No - Suicidal Assessment Feels Threatened In Home Enviroment: No Family/Social History - Physician Review Nursing Documentation Reviewed: Yes Family/Social History: No Known Family HX Smoking Status: Former Smoker Hx Alcohol Use: Yes (ocasional) 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") 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 Hx Substance Use Treatment: Yes Allergies/Home Meds Allergies/Adverse Reactions: Allergies No Known Allergies Allergy (Verified 08/29/18 02:32) Home Medications: Home Meds Medication Instructions Recorded Confirmed Alprazolam [Xanax] 0.5 mg PO BID 08/13/17 08/29/18 Potassium Chloride [Klor-Con 10 meq PO DAILY 08/13/17 08/29/18 Sprinkle] predniSONE [predniSONE Tab] 5 mg PO TID 08/13/17 08/29/18 Famotidine [Pepcid] 20 mg PO DAILY 08/29/18 08/29/18 Furosemide [Lasix] 20 mg PO DAILY 08/29/18 08/29/18 Roflumilast [Daliresp] 500 mcg PO DAILY 08/29/18 08/29/18 Verapamil [Calan SR Tab] 180 mg PO DAILY 08/29/18 08/29/18 Review of Systems - Physician Review All systems were reviewed & negative as marked: Yes - Review of Systems Constitutional: absent: Fevers, Night Sweats Respiratory: SOB Gastrointestinal: absent: Abdominal Pain, Diarrhea, Nausea, Vomiting Musculoskeletal: absent: Back Pain, Neck Pain Neurological: absent: Headache, Dizziness Physical Exam Vital Signs Reviewed: Yes Vital Signs Pulse Resp BP Pulse Ox 08/29/18 02:35 99 H 30 H 124/74 89 L Blood Pressure: Normal Pulse: Tachycardic Respiratory Rate: Tachypneic Appearance: Positive for: Well-Appearing, Non-Toxic, Comfortable Pain Distress: None Mental Status: Positive for: Alert and Oriented X 3 - Systems Exam Head: Present: Atraumatic, Normocephalic Pupils: Present: PERRL Extroacular Muscles: Present: EOMI Conjunctiva: Present: Normal Mouth: Present: Moist Mucous Membranes Neck: Present: Normal Range of Motion Respiratory/Chest: Present: Rales (Bilaterally) Cardiovascular: Present: Regular Rate and Rhythm, Normal S1, S2. No: Murmurs Abdomen: No: Tenderness, Distention, Peritoneal Signs Back: Present: Normal Inspection Upper Extremity: Present: Normal Inspection. No: Cyanosis, Edema Lower Extremity: Present: Normal Inspection. No: Edema Neurological: Present: GCS=15, CN II-XII Intact, Speech Normal Skin: Present: Warm, Dry, Normal Color. No: Rashes Psychiatric: Present: Alert, Oriented x 3, Normal Insight, Normal Concentration Medical Decision Making ED Course and Treatment: 08/29/18 03:07 Impression: 58 year old male presents with shortness of breath. Plan: -- EKG -- CMP, Mg, Cardiac Iso -- CBC, Prothrombin -- Chest X-ray -- Blood culture -- Reassess and disposition Prior Visits: Notes and results from previous visits were reviewed. Progress Notes: irma d/w dr park stoll obs for copd - RAD Interpretation Radiology Orders: 08/29/18 02:46 CHEST PORTABLE [RAD] Stat - EKG Interpretation EKG Interpretation (Text): 08/29/18 06:50 sinus rate 93 nssts changes - Scribe Statement The provider has reviewed the documentation as recorded by the Scribtiffany Shane Provider Scribe Attestation: All medical record entries made by the Scribe were at my direction and personally dictated by me. I have reviewed the chart and agree that the record accurately reflects my personal performance of the history, physical exam, medical decision making, and the department course for this patient. I have also personally directed, reviewed, and agree with the discharge instructions and disposition. Disposition/Present on Arrival - Present on Arrival Any Indicators Present on Arrival: No History of DVT/PE: No History of Uncontrolled Diabetes: No Urinary Catheter: No History of Decub. Ulcer: No History Surgical Site Infection Following: None - Disposition Have Diagnosis and Disposition been Completed?: Yes Diagnosis: COPD exacerbation, CHF (congestive heart failure) Disposition: HOSPITALIZED Disposition Time: 05:35 Condition: FAIR
[2018-08-29 04:24] LABS: BASO # 0.02 K/mm3 (0.0-2.0); BASO % 0.4 % (0.0-3.0); EOS % 0.8 % (1.5-5.0); HEMOGLOBIN 10.9 g/dL (14.0-18.0); LYMPH # 0.5 (1.2-3.4); LYMPH % 9.6 % (22.0-35.0); MEAN CORPUSCULAR HEMOGLOBIN 27.9 pg (25.0-35.0); MEAN CORPUSCULAR HGB CONC 30.7 g/dl (31.0-37.0); MEAN PLATELET VOLUME 9.8 fl (7.0-11.0); MONO # 0.2 (0.1-0.6); MONO % 4.6 % (1.0-6.0); RBC 3.9 10^6/uL (3.5-6.1); RED CELL DISTRIBUTION WIDTH 15.8 % (11.5-14.5); WHITE BLOOD COUNT 4.8 10^3/uL (4.5-11.0)
[2018-08-29 04:28] LABS: INR 0.94; PARTIAL THROMBOPLASTIN TIME 23.3 Seconds (26.9-38.3); PROTHROMBIN TIME 10.6 SECONDS (9.4-12.5)
[2018-08-29] MEDS ORDERED: Albuterol-Ipratrop 3 mg / 0.5 (3 ml) UD IH STA (04:30)
[2018-08-29 04:34] LABS: TROPONIN I < 0.01 ng/mL
[2018-08-29 05:08] LABS: ALB/GLOB RATIO 1.3 (1.1-1.8); ALBUMIN 3.5 g/dL (3.0-4.8); ALT/SGPT 163 U/L (7-56); AST/SGOT 85 U/L (17-59); BLOOD UREA NITROGEN 10 mg/dL (7-21); GFR NON-AFRICAN AMERICAN > 60
[2018-08-29] MEDS ORDERED: Albuterol-Ipratrop 3 mg / 0.5 (3 ml) UD IH PRN (05:37)
--- NOTE | 2018-08-29 09:25 | CON ---
DATE: 08/29/2018 PULMONARY CONSULTATION REFERRING PHYSICIAN: Dr. Bowman REASON FOR PULMONARY CONSULTATION: Chronic obstructive pulmonary disease. The patient is a chronically ill 58-year-old male, with past medical history significant for advanced/end-stage chronic obstructive pulmonary disease, on home oxygen, paroxysmal atrial fibrillation, congestive heart failure, coronary artery disease, myocardial infarction in the past, who presents to [facility] with a two-day history of worsening shortness of breath at rest and dyspnea on exertion. The patient also states to a minimal cough with no significant sputum production. There is no history of chest pain, coughing up of blood, or chest pain - brought on with deep respirations. There is no history of temperatures, chills or infectious exposure. There is no history of night sweats, weight loss or appetite change prior to the above events. No history of calf pains. No history of syncope or diaphoresis. No history of recent travel or trauma. REVIEW OF SYSTEMS: No history of nausea, vomiting or diarrhea. No acute urinary symptoms. No new neurologic complaints. Rest of the review of systems is negative. ALLERGIES: NO KNOWN ALLERGIES. SOCIAL HISTORY: Positive for extensive tobacco usage. Also positive for previous alcohol abuse and polysubstance abuse. FAMILY HISTORY: No inheritable diseases. HOME MEDICATIONS: Include Calan, Daliresp, Lasix, Pepcid, prednisone, Xanax. PHYSICAL EXAMINATION: GENERAL: The patient appears comfortable this morning. He is not short of breath at rest. He is not using accessory muscles for breathing. VITALS: Temperature is 98.2, pulse 82, respirations 18, blood pressure 111/67. Oxygen saturation on nasal cannula is 96%. HEENT: Normocephalic, atraumatic. No JVD. CARDIOVASCULAR: Systolic ejection murmur at the lower left sternal border. No S3 gallop. LUNGS: Decreased breath sounds at the bases. Minimal rhonchi. Minimal wheezing. EXTREMITIES: Mild edema. No cyanosis, no clubbing. Calves are nontender to palpation. GASTROINTESTINAL: Abdomen is soft, nontender, nondistended. Bowel sounds are positive. SKIN: No acute rash. NEUROLOGIC: Exam limited at the present time. PERTINENT LABORATORY DATA: Chest x-ray was done and reviewed. It does not appear significantly changed from the previous film. Official results-pending. CBC: White count 4.8K, hemoglobin 10.9, hematocrit 35.5, platelets of 74,000. Complete metabolic profile: Glucose 156, AST 85, ALT 163. Rest of the metabolic profile is within normal limits. IMPRESSION: 1. Recurrent bronchitis. 2. Very advanced chronic obstructive pulmonary disease. 3. Coronary artery disease. 4. Mild anemia. PLAN: The patient presents to [facility] with a 2-day history of worsening pulmonary symptoms. I did review the chest x-ray as above. I do not appreciate any new or significant changes. Official results are pending. On physical exam, there is [id number] bronchospasm present. However, there is no significant alveolar-arterial gradient. I will start the patient on DuoNeb treatments and inhaled Pulmicort. I will also start low-moderate dose intravenous steroids this morning. The patient has been recently on antibiotic therapy, so I will hold off on coverage for now. The patient does feel better this morning and is clinically improved. Additional pulmonary intervention will based on the clinical status of the patient. I will discuss the above with the attending physician. Thank you very much for this pulmonary consultation. Mane Pineda MD MTDRoberto
[2018-08-29] MEDS ORDERED: MethylPREDNISolone 40 mg Vial IVP SCH ×2 (10:00→22:00)
[2018-08-29] MEDS: Albuterol-Ipratrop 3 mg / 0.5 (3 ml) UD IH PRN ×2 (10:40→18:30)
--- NOTE | 2018-08-29 12:22 | CARD ---
APPROVED REPORT Date of service: 08/29/2018 EKG Measurement Heart [id number] <Conclusion> Sinus rhythm. Low voltage QRS Inferior infarct, age Possible Old?
[2018-08-29] MEDS: Albuterol-Ipratrop 3 mg / 0.5 (3 ml) UD IH SCH ×2 (14:40→22:15)
[2018-08-29] MEDS: Potassium Chloride 10 mEq ER Tab PO SCH (14:41)
[2018-08-29] MEDS: Verapamil 180 mg ER Tab PO SCH (14:41)
--- NOTE | 2018-08-29 14:48 | RAD ---
Date of service: 08/29/2018 HISTORY: sob COMPARISON: 08/14/2018 FINDINGS: LUNGS: Atelectasis at the lung bases right greater than left. These represent/new. PLEURA: No significant pleural effusion identified, no pneumothorax apparent. CARDIOVASCULAR: Atherosclerotic calcifications identified primarily aortic arch. No radiographic findings to suggest acute or significant cardiovascular disease. OSSEOUS STRUCTURES: No significant abnormalities. VISUALIZED UPPER ABDOMEN: Normal. OTHER FINDINGS: None. IMPRESSION: Lower lobe infiltrates/atelectasis common new findings compared to 19.
[2018-08-29] MEDS: oxyCODONE 15 mg Immediate Release Tab PO PRN (15:08)
[2018-08-29] MEDS ORDERED: Pneumococcal 23-Valent Vaccine IM ONE (19:08)
[2018-08-29] MEDS ORDERED: Influenza Vaccine 60 mcg/0.5 mL SYR (4YR UP) IM ONE (19:08)
[2018-08-29] MEDS: oxyCODONE 20 mg ER Tab (oxyCONTIN) PO SCH (21:15)
--- NOTE | 2018-08-29 21:16 | CON ---
DATE: 08/29/2018 LOCATION: The patient is in emergency room in bed 20. REASON FOR CONSULTATION: Shortness of breath, history of paroxysmal atrial fibrillation, history of right heart dysfunction, mild LV dysfunction, hypertension, back pain, history of kyphoplasty, history of GI bleeding when the patient was on anticoagulation for atrial fibrillation, and anemia. HISTORY OF PRESENT ILLNESS: The patient is a 58-year-old male known to have severe COPD, chronic back pain, admitted with the history that since last 2 days he is having some cough with yellowish expectoration and started getting shortness of breath. He also developed some swelling on the lower legs. He denies chest pain, sometimes off and on. He has palpitations, especially on exertion, on exertion. The patient known case of paroxysmal chronic atrial fibrillation. Right now, at the time of examination, he is in sinus rhythm. He also had one time SVT. PAST MEDICAL HISTORY: Significant for severe COPD, atrial fibrillation, paroxysmal. The patient had radiofrequency ablation in 06/2017, status post cardiac catheterization which showed nonobstructive coronary artery disease. At that time, the patient was admitted with non-STEMI and probably had thrombus from LV going into the coronary causing non-STEMI, later on the patient showed improvement in the LV function. Cath was done in 11/2013 when the patient was admitted with non-STEMI, history of sepsis, COPD, back pain, and history of kyphoplasty. The patient had massive GI bleeding when he was put on anticoagulation due to paroxysmal atrial fibrillation. Since then, the patient has not been on anticoagulation and family also refuses any anticoagulation. PREVIOUS CARDIAC WORKUP: The patient had a cardiac catheterization in 11/2013, which showed normal coronaries. Cardiomyopathy was secondary to probably thrombus in the coronary. Later on, MUGA scan showed ejection fraction significantly improved to 54%. At that time, the patient had presented with non-STEMI and it was probably likely due to secondary to thrombus from the LV going into the coronary. MUGA scan was done on 05/09/2014, which showed ejection of 65%. In 10/2013, MUGA scan showed ejection fraction of 54%. Most recent echo was done on 06/01/2017 that showed borderline LV function, which was within normal limits. Mild pulmonary hypertension. Last echo done at [facility] on 09/08/2017, which was interpreted by Dr. Hannallah, which showed borderline RV systolic function was moderately reduced, mild tricuspid regurgitation, [id number] pulmonary hypertension, ejection fraction 48% which shows minimal reduction in the LV systolic function. RVSP was around 47 mmHg. PERSONAL HISTORY: The patient denies smoking. Denies drinking. MEDICATIONS AT HOME: The patient was on Xanax 0.5 b.i.d., potassium 10 mEq p.o. daily, prednisone 5 mg t.i.d., Pepcid 20 mg p.o. daily, furosemide 20 mg p.o. daily, and Daliresp 500 mcg p.o. daily. REVIEW OF SYSTEMS: All the systems reviewed, positive mentioned in the history, otherwise negative. PHYSICAL EXAMINATION: VITAL SIGNS: Blood pressure 122/80, respirations 17, pulse 94, and temperature 98.8. HEENT: Head is normocephalic. Eyes, pupils normal. Conjunctivae slightly pale. NECK: JVP low. Carotid equal. THORAX: AP diameter slightly increased. LUNGS: Bilateral expiratory wheezing. CARDIOVASCULAR: S1 and S2. ABDOMEN: Soft and nontender. No organomegaly. EXTREMITIES: No clubbing. No cyanosis. Trace edema bilateral lower legs. LABORATORY DATA: WBC 4.8, hemoglobin 10.9, hematocrit 35.5, and platelets 74. Sodium 142, potassium 4.6, BUN 10, creatinine 0.5, and random sugar 156. Magnesium 2.2. Troponin less than 0.01. EKG showed regular sinus rhythm, low voltage QRS complex, possible Q in III and aVF suggestive of possible old anterior wall OR questionable. Chest x-ray no evidence of CHF. DIAGNOSES: Acute exacerbation of chronic obstructive pulmonary disease, respiratory tract infection, history of right heart dysfunction, [id number] pulmonary hypertension, history of cardiomyopathy in the past, which had improved, mild left ventricular dysfunction, history of chronic paroxysmal atrial fibrillation, status post ablation and again recurrence of paroxysmal atrial fibrillation, hypertension, anemia, back pain, kyphoplasty of spine, history of gastrointestinal bleeding, anticoagulation for atrial fibrillation. PLAN: Since last time when the patient had massive GI bleeding, family and the patient do not want to have any anticoagulation and we will continue verapamil SR which is Calan SR 180 mg p.o. daily, sotalol 80 mg b.i.d., Daliresp 500 mcg p.o. daily, DuoNeb hand nebulize therapy, and potassium 10 mEq p.o. daily. The patient received 40 IV Lasix one time, now he is on 40 IV daily Lasix, methylprednisolone 40 mg IV every 12 hours. We will continue present therapy and we will follow. Shaila Resendez MD
--- NOTE | 2018-08-29 21:34 | HP ---
DATE OF EXAM: 08/29/2018 HISTORY OF PRESENT ILLNESS: The patient is a 58-year-old who was recently discharged. He states he was not feeling well this morning. His pulse ox was going down to 82% to 81%, his called ambulance because his color was getting bluish, so he came to emergency room to be evaluated. The patient denies any chest pain. Does have shortness of breath. Does complain of feeling wheezy and winded. When he goes to the bathroom, he cannot catch his breath and denies any confusion. No hemoptysis. No hematemesis. PAST MEDICAL HISTORY: Significant for: 1. Hypertension. 2. History of AFib, status post ablation and now he runs in sinus rhythm. 3. Terminal COPD. 4. Nonischemic cardiomyopathy. 5. Degenerative disk disease, status post multiple angioplasties. 6. Anemia. 7. History of peptic ulcer disease. ALLERGIES: HE IS NOT ALLERGIC TO ANY MEDICATIONS. MEDICATIONS AT HOME: He is on verapamil 180 daily, Daliresp, Lasix 20 mg daily, Pepcid, prednisone, and Xanax. SOCIAL HISTORY: He used to be a heavy smoker. 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 He used to be on methadone, he stopped that also. History of heavy smoking, quit in 2012. He is , does not work, and he is currently disabled. REVIEW OF SYSTEMS: Shortness of breath, feeling weak and winded. PHYSICAL EXAMINATION: GENERAL: He is awake, alert, oriented, and able to communicate. VITAL SIGNS: He is afebrile, pulse 94, respirations 17, and blood pressure 122/80. LUNGS: Bilateral fair airflow, few occasional expiratory rhonchi. HEART: S1 and S2 audible. ABDOMEN: Soft, obese, and nontender. No rebound. No guarding. NEUROLOGIC: The patient is awake, alert, oriented, and communicative. LABORATORY DATA: WBC is 4.8, hemoglobin 10.9, hematocrit 35, and platelets 74. PT 10.6. INR 0.94. Chemistry; sodium 142, potassium 4.6, chloride 106, CO2 of 33, BUN 10, creatinine 0.5, and blood sugar of 156. AST 85 and ALT 163. CPK less than 20. Troponin is 0.01. X-ray of chest negative for pneumonia. ASSESSMENT: 1. Chronic obstructive pulmonary disease exacerbation. 2. Bronchospasm. 3. Terminal chronic obstructive pulmonary disease. 4. Congestive heart failure. 5. History of atrial fibrillation, currently in sinus rhythm. 6. Nonischemic cardiomyopathy. PLAN: The patient will be placed on observation in telemetry. We will resume his medication, IV steroid, nebulizer treatment, and Pepcid. We will follow up the patient in a.m. Ross Bowman MD
[2018-08-29] MEDS: Budesonide 0.5 mg/2 ml Inhal Susp UD IH SCH (22:15)
[2018-08-30] MEDS: Albuterol-Ipratrop 3 mg / 0.5 (3 ml) UD IH SCH ×6 (02:30→23:19)
[2018-08-30 06:26] LABS: HEMOGLOBIN 11.6 g/dL (14.0-18.0); LYMPH # 0.5 (1.2-3.4); LYMPH % 7.1 % (22.0-35.0); MEAN CELL VOLUME 88.9 fl (80.0-105.0); MEAN CORPUSCULAR HEMOGLOBIN 28.1 pg (25.0-35.0); MEAN CORPUSCULAR HGB CONC 31.6 g/dl (31.0-37.0); MEAN PLATELET VOLUME 10.2 fl (7.0-11.0); MONO # 0.2 (0.1-0.6); MONO % 3.6 % (1.0-6.0); RBC 4.13 10^6/uL (3.5-6.1); RED CELL DISTRIBUTION WIDTH 15.4 % (11.5-14.5); WHITE BLOOD COUNT 6.7 10^3/uL (4.5-11.0)
[2018-08-30 07:23] LABS: ALB/GLOB RATIO 1.4 (1.1-1.8); ALT/SGPT 176 U/L (7-56); AST/SGOT 69 U/L (17-59); BLOOD UREA NITROGEN 12 mg/dL (7-21); CALCIUM 9.5 mg/dL (8.4-10.5); GFR NON-AFRICAN AMERICAN > 60
[2018-08-30] MEDS: Budesonide 0.5 mg/2 ml Inhal Susp UD IH SCH ×2 (08:00→19:14)
[2018-08-30] MEDS: Potassium Chloride 10 mEq ER Tab PO SCH (09:17)
[2018-08-30] MEDS: oxyCODONE 20 mg ER Tab (oxyCONTIN) PO SCH ×2 (09:18→21:15)
[2018-08-30] MEDS: MethylPREDNISolone 40 mg Vial IVP SCH ×2 (09:18→21:15)
--- NOTE | 2018-08-30 09:32 | CP.PCM.PN ---
Subjective - Date & Time of Evaluation Date of Evaluation: 08/30/18 Time of Evaluation: 06:45 - Subjective Subjective: Awake, alert, mild shortness of breath Reason for consultation and follow up: Cardiac evaluation of shortness of breath, history of COPD, paroxysmal atrial fibrillation, CHF, CAD, MD, hypertension Seen and examined by me and Objective - Vital Signs/Intake and Output Vital Signs (last 24 hours): Temp Pulse Resp BP Pulse Ox 97.5 F L 84 22 112/75 96 08/30/18 08:17 08/30/18 09:16 08/30/18 08:17 08/30/18 09:18 08/30/18 08:17 - Medications Medications: Current Medications Acetaminophen (Tylenol 325mg Tab) 650 mg PO Q4H PRN PRN Reason: Pain, Mild (1-3) Albuterol/Ipratropium (Duoneb 3 Mg/0.5 Mg (3 Ml) Ud) 3 ml IH [id number] [facility] Last Admin: 08/30/18 08:00 Dose: 3 ml Albuterol/Ipratropium (Duoneb 3 Mg/0.5 Mg (3 Ml) Ud) 3 ml IH Q2H PRN PRN Reason: Shortness of Breath Last Admin: 08/29/18 18:30 Dose: 3 ml Alprazolam (Xanax) 0.5 mg PO BID [facility]; Protocol Last Admin: 08/30/18 09:20 Dose: 0.5 mg Budesonide (Pulmicort Respules) 0.5 mg IH [id number] [facility] Last Admin: 08/30/18 08:00 Dose: 0.5 mg Furosemide (Lasix) 40 mg IVP DAILY [facility] Last Admin: 08/30/18 09:18 Dose: 40 mg Methylprednisolone (Solu-Medrol) 30 mg IVP Q12 [facility] Last Admin: 08/30/18 09:18 Dose: 30 mg Oxycodone HCl (Oxycontin Extended Release Tab) 20 mg PO Q12 [facility] Last Admin: 08/30/18 09:18 Dose: 20 mg Oxycodone HCl (Oxycodone Immediate Release Tab) 15 mg PO Q6H PRN PRN Reason: Pain, moderate (4-7) Last Admin: 08/29/18 15:08 Dose: 15 mg Potassium Chloride (Klor-Con 10) 10 meq PO DAILY [facility] Last Admin: 08/30/18 09:17 Dose: 10 meq Roflumilast (Daliresp) 500 mcg PO DAILY [facility] Last Admin: 08/30/18 09:17 Dose: 500 mcg Sotalol HCl (Betapace) 80 mg PO BID [facility] Last Admin: 08/30/18 09:16 Dose: 80 mg Verapamil HCl (Calan Sr Tab) 180 mg PO DAILY [facility] Last Admin: 08/29/18 14:41 Dose: Not Given - Labs Labs: 08/30/18 06:00 08/30/18 06:00 PT 10.6 SECONDS (9.4-12.5) 08/29/18 03:20 INR 0.94 08/29/18 03:20 APTT 23.3 Seconds (26.9-38.3) L 08/29/18 03:20 - Constitutional Appears: Non-toxic, No Acute Distress - Head Exam Head Exam: NORMAL INSPECTION, NORMOCEPHALIC - Eye Exam Eye Exam: Normal appearance Pupil Exam: NORMAL ACCOMODATION - ENT Exam ENT Exam: Mucous Membranes Moist - Respiratory Exam Respiratory Exam: Decreased Breath Sounds, Rhonchi - Cardiovascular Exam Cardiovascular Exam: REGULAR RHYTHM, +S1, +S2 Additional comments: Telemetry 70's NSR - GI/Abdominal Exam GI & Abdominal Exam: Soft, Normal Bowel Sounds - Extremities Exam Extremities Exam: Full ROM, Normal Capillary Refill - Neurological Exam Neurological Exam: Alert, Awake, Oriented x3 - Psychiatric Exam Psychiatric exam: Normal Affect, Normal Mood - Skin Skin Exam: Dry, Normal Color, Warm Assessment and Plan - Assessment and Plan (Free Text) Assessment: A 58 year old male who came in to the ER due to shortness of breath. he was rec ently discharged from TCU a week ago. History of congestive heart failure, COPD, paroxysmal atrial fibrillation, post ablation with recurrent atrial fibrillation, coronary artery disease, MD, hypertension, chronic back pain with kyphoplasty, cardiomyopathy in the past with improvement, mild to moderate pulmonary hypertension, anemia, massive GI bleeding due to anticogulation. He was having progressive shortness of breath for the past 2 days prior to admission. He follows up with Dr. Pineda (Pulmonary). Troponin normal, BNP normal. Recent echo 09/08/17 showed LVEF 49 %,mild TR,moderate pulmon jean claude hypertension. Admitted for exacerbation of COPD, Bronchitis. Started on steroids by pulmonary. Plan: Denies shortness of breath, feels better Heart rate controlled, normal sinus rhythm Blood pressure controlled On Lasix 40 mg daily,Solumedrol 30 mg IV daily,Potassium 10 meq daily Sotalol 80 mg BID, Verapamil 180 mg daily Continue current medications Continue current treatment Will follow up Plan and treatment discussed with Dr. Samuel
[2018-08-30] MEDS ORDERED: Albuterol-Ipratrop 3 mg / 0.5 (3 ml) UD IH STA (11:28)
--- NOTE | 2018-08-30 12:57 | PN ---
DATE: 08/30/2018 PULMONARY NOTE SUBJECTIVE: The patient appears comfortable this morning. He is not short of breath at rest. PHYSICAL EXAMINATION: VITAL SIGNS: Temperature is 97.7, pulse 83, respirations 18/20, blood pressure 123/88. Oxygen saturation on nasal cannula is 97%. HEENT: Normocephalic, atraumatic. NECK: No JVD. CARDIOVASCULAR: Systolic ejection murmur at the lower left sternal border. No S3 gallop. LUNGS: Improved breath sounds at the bases. Less rhonchi. No wheezing this morning. GI: Abdomen is soft, nontender and nondistended. Bowel sounds are positive. EXTREMITIES: Mild edema. No cyanosis, no clubbing. Calves are nontender to palpation. SKIN: No acute rash. NEUROLOGIC: Exam limited at the present time. IMPRESSION: 1. Recurrent bronchitis. 2. Very advanced chronic obstructive pulmonary disease. 3. Coronary artery disease. 4. Mild anemia. PLAN: The patient appears comfortable this morning. He is not short of breath at rest. He does state to feeling much better overall. On physical exam, his bronchospasm is less. In addition, the alveolar-arterial gradient is also less. I will continue the current nebulizer treatments and decrease the intravenous steroids this morning. Clinical status of the patient has certainly improved - compared to the initial presentation. However, given the above, the future status/prognosis for this patient remains guarded. I certainly would like to see the patient out of bed more often this morning. I will discuss the above with Dr. Bowman. Mane Pineda MD MTDD
[2018-08-30] MEDS: cefTRIAXone 1 gm 1 GM/100 ML BAG IVPB SCH (13:54)
[2018-08-30] MEDS: oxyCODONE 15 mg Immediate Release Tab PO PRN (14:44)
--- NOTE | 2018-08-30 14:44 | PN ---
DATE: 08/30/2018 SUBJECTIVE: The patient is 58 years old, seen and examined, complained of cough, congestion, wheezing, and cannot catch breath when he goes to bathroom and feels as if he is going to pass out. PHYSICAL EXAMINATION VITAL SIGNS: He is afebrile, pulse 84, respirations 22, and blood pressure 112/75. LUNGS: Bilateral expiratory rhonchi. HEART: S1 and S2 audible. ABDOMEN: Soft, obese, and nontender. No rebound. No guarding. NEUROLOGIC: The patient is awake, alert, oriented, able to communicate. LABORATORY EXAM: WBC 6.7, hemoglobin 11.6, hematocrit 36.5, platelet of 99. Chemistry; sodium 139, potassium 4.3, chloride 101, CO2 32, BUN 12, creatinine 0.5, blood sugar of 170, AST 69, ALT 176. ASSESSMENT: 1. Chronic obstructive pulmonary disease exacerbation, bilateral severe bronchospasm. 2. Nonischemic cardiomyopathy. 3. Status post atrial fibrillation and ablation, currently being maintained on sotalol and verapamil. 4. Left lower lobe infiltrate versus atelectasis. PLAN: We will empirically start patient on IV antibiotics, get CT scan of the chest, procalcitonin. We will continue him on IV steroid, nebulizer treatment. Continue him on Lasix, continue him on , continue Solu-Medrol 30 every 12 hours, we will continue that and analgesic as needed. We will followup the patient in a.m. Ross Bowman MD
--- NOTE | 2018-08-30 15:06 | CT ---
Date of service: 08/30/2018 PROCEDURE: CT Chest without contrast HISTORY: chest congestion, ? pneumonia, copd COMPARISON: Chest CT without contrast 03/16/2018. TECHNIQUE: Contiguous axial images were obtained through the chest without intravenous contrast enhancement. Sagittal and coronal reconstructions were performed. Radiation dose: Total exam DLP = 669.71 mGy-cm. This CT exam was performed using one or more of the following dose reduction techniques: Automated exposure control, adjustment of the mA and/or kV according to patient size, and/or use of iterative reconstruction technique. FINDINGS: LUNGS: Prior consolidation appears to have resolved at the bilateral bases with interval linear atelectasis or fibrosis noted at both lower lobes once again. No discrete pulmonary mass including central airways bilaterally. MEDIASTINUM: Unremarkable thoracic aorta. No aneurysm. Normal sized heart. Main pulmonary artery unremarkable. No vascular congestion. No lymphadenopathy. No aortic atherosclerotic calcification. PLEURA: No pleural fluid. No pneumothorax. BONES: Multiple compression fractures are identified moderate T6 mild at T7 and mild moderate to severe at T8, T9 and T10 with mild anterior wedging of T12 anteriorly compatible with additional but mild fracture noted. Foot kyphoplasty is identified at T1-T2 vertebral bodies. UPPER ABDOMEN: Grossly unremarkable. OTHER FINDINGS: None. IMPRESSION: 1. Linear atelectasis or fibrosis in both both bases. Bronchial thickening may indicate bronchitis of acute or even chronic time frame. Still, reactive airways disease is a possibility. 2. No significant lymphadenopathy. 3. Multiple thoracic spinal compression fractures with postcontrast vertebro focal plasty changes present at L1 and L2 vertebral bodies. 4. Prior lumbar vertebroplasty and multilevel compression fracture of indeterminate age the mid to inferior thoracic spine. 5. Other lesser findings as discussed above.
[2018-08-30] MEDS: Verapamil 180 mg ER Tab PO SCH (17:30)
[2018-08-31] MEDS: Albuterol-Ipratrop 3 mg / 0.5 (3 ml) UD IH SCH ×6 (03:33→23:30)
--- NOTE | 2018-08-31 07:55 | CP.PCM.PN ---
Subjective - Date & Time of Evaluation Date of Evaluation: 08/31/18 Time of Evaluation: 06:45 - Subjective Subjective: Awake, alert, denies shortness of breath, feels okay Reason for consultation and follow up: Cardiac evaluation of shortness of breath, history of COPD, paroxysmal atrial fibrillation, CHF, CAD, IN, hypertension Seen and examined by me and Objective - Vital Signs/Intake and Output Vital Signs (last 24 hours): Temp Pulse Resp BP Pulse Ox 97.3 F L 91 H 20 114/77 95 08/30/18 16:24 08/31/18 05:21 08/30/18 16:24 08/30/18 17:28 08/30/18 16:24 Intake and Output: 08/31/18 08/31/18 06:59 18:59 Intake Total 1010 Output Total 1450 Balance -440 - Medications Medications: Current Medications Acetaminophen (Tylenol 325mg Tab) 650 mg PO Q4H PRN PRN Reason: Pain, Mild (1-3) Albuterol/Ipratropium (Duoneb 3 Mg/0.5 Mg (3 Ml) Ud) 3 ml IH Q2H PRN PRN Reason: Shortness of Breath Last Admin: 08/29/18 18:30 Dose: 3 ml Albuterol/Ipratropium (Duoneb 3 Mg/0.5 Mg (3 Ml) Ud) 3 ml IH [id number] [facility] Last Admin: 08/31/18 03:33 Dose: 3 ml Alprazolam (Xanax) 0.5 mg PO BID PRN; Protocol PRN Reason: Anxiety Last Admin: 08/30/18 21:44 Dose: 0.5 mg Budesonide (Pulmicort Respules) 0.5 mg IH [id number] [facility] Last Admin: 08/30/18 19:14 Dose: 0.5 mg Furosemide (Lasix) 40 mg IVP DAILY [facility] Last Admin: 08/30/18 09:18 Dose: 40 mg Ceftriaxone Sodium (Rocephin 1 Gram Ivpb) 1 gm in 100 mls @ 100 mls/hr IVPB DAILY [facility]; Protocol Last Admin: 08/30/18 13:54 Dose: 100 mls/hr Doxycycline Hyclate 100 mg/ (Sodium Chloride) 100 mls @ 100 mls/hr IVPB Q12 [facility]; Protocol Last Admin: 08/30/18 21:24 Dose: 100 mls/hr Methylprednisolone (Solu-Medrol) 30 mg IVP Q12 [facility] Last Admin: 08/30/18 21:15 Dose: 30 mg Oxycodone HCl (Oxycontin Extended Release Tab) 20 mg PO Q12 [facility] Last Admin: 08/30/18 21:15 Dose: 20 mg Oxycodone HCl (Oxycodone Immediate Release Tab) 15 mg PO Q6H PRN PRN Reason: Pain, moderate (4-7) Last Admin: 08/30/18 14:44 Dose: 15 mg Potassium Chloride (Klor-Con 10) 10 meq PO DAILY [facility] Last Admin: 08/30/18 09:17 Dose: 10 meq Roflumilast (Daliresp) 500 mcg PO DAILY [facility] Last Admin: 08/30/18 09:17 Dose: 500 mcg Sotalol HCl (Betapace) 80 mg PO BID [facility] Last Admin: 08/30/18 17:28 Dose: 80 mg Verapamil HCl (Calan Sr Tab) 180 mg PO DAILY [facility] Last Admin: 08/30/18 17:30 Dose: Not Given - Labs Labs: 08/30/18 06:00 08/30/18 06:00 PT 10.6 SECONDS (9.4-12.5) 08/29/18 03:20 INR 0.94 08/29/18 03:20 APTT 23.3 Seconds (26.9-38.3) L 08/29/18 03:20 - Constitutional Appears: Non-toxic, No Acute Distress - Head Exam Head Exam: NORMAL INSPECTION, NORMOCEPHALIC - Eye Exam Eye Exam: Normal appearance Pupil Exam: NORMAL ACCOMODATION - ENT Exam ENT Exam: Mucous Membranes Moist, Normal Exam - Respiratory Exam Respiratory Exam: Decreased Breath Sounds, Rhonchi, NORMAL BREATHING PATTERN - Cardiovascular Exam Cardiovascular Exam: REGULAR RHYTHM, +S1, +S2 - GI/Abdominal Exam GI & Abdominal Exam: Soft, Normal Bowel Sounds - Extremities Exam Extremities Exam: Full ROM Additional comments: 1-2+ edema - Neurological Exam Neurological Exam: Alert, Awake, Oriented x3 - Psychiatric Exam Psychiatric exam: Normal Affect, Normal Mood - Skin Skin Exam: Dry, Normal Color, Warm Assessment and Plan - Assessment and Plan (Free Text) Assessment: A 58 year old male who came in to the ER due to shortness of breath. he was recently discharged from TCU a week ago. History of congestive heart failure, COPD, paroxysmal atrial fibrillation, post ablation with rec urrent atrial fibrillation, coronary artery disease, IN, hypertension, chronic back pain with kyphoplasty, cardiomyopathy in the past with improvement, mild to moderate pulmonary hypertension, anemia, massive GI bleeding due to anticogulation. He was having progressive shortness of breath for the past 2 days prior to admission. He follows up with Dr. Pineda (Pulmonary). Troponin normal, BNP normal. Recent echo 09/08/17 showed LVEF 49 %,mild TR,moderate pulmonary hypertension. Admitted for exacerbation of COPD, Bronchitis. Started on steroids by pulmonary. Responding well to steroids. Less short of breath. Plan: Feels better,Denies shortness of breath Heart rate controlled Blood pressure controlled Cardiac status stable On Lasix 40 mg daily,Solumedrol 30 mg IV daily,Potassium 10 meq daily Sotalol 80 mg BID, Verapamil 180 mg daily Continue current medications Continue current treatment Encouraged to get out of bed to chair Will follow up Plan and treatment discussed with Dr. Samuel
[2018-08-31] MEDS: Budesonide 0.5 mg/2 ml Inhal Susp UD IH SCH ×2 (08:11→20:15)
[2018-08-31] MEDS: Verapamil 180 mg ER Tab PO SCH (08:59)
[2018-08-31] MEDS: oxyCODONE 20 mg ER Tab (oxyCONTIN) PO SCH ×2 (09:00→21:18)
[2018-08-31] MEDS: Potassium Chloride 10 mEq ER Tab PO SCH (09:00)
[2018-08-31] MEDS: MethylPREDNISolone 40 mg Vial IVP SCH ×2 (09:01→21:17)
[2018-08-31] MEDS: cefTRIAXone 1 gm 1 GM/100 ML BAG IVPB SCH (09:01)
--- NOTE | 2018-08-31 09:38 | PN ---
DATE: 08/31/2018 SUBJECTIVE: The patient appears comfortable this morning. He is not short of breath at rest. PHYSICAL EXAMINATION: VITAL SIGNS: Temperature is 97.3, pulse 91, respirations 18/20, blood pressure 114/77. Oxygen saturation on nasal cannula is 95-96%. HEENT: Normocephalic, atraumatic. NECK: No JVD. CARDIOVASCULAR: Systolic ejection murmur at the lower left sternal border. No S3 gallop. LUNGS: Minimal bilateral rhonchi and wheezing are appreciated this morning. EXTREMITIES: Mild edema. No cyanosis, no clubbing. Calves are nontender to palpation. GASTROINTESTINAL: Abdomen is soft, nontender and nondistended. Bowel sounds are positive. SKIN: No acute rash. NEUROLOGIC: Exam limited at the present time. PERTINENT LABORATORY DATA: CAT scan of the chest was done and reviewed.. The CAT scan reveals minimal scarring primarily at the lower lobes. This CAT scan is actually improved - with much less basilar changes - compared to the CAT scan of 03/16/2018. IMPRESSION: 1. Recurrent bronchitis. 2. Very advanced chronic obstructive pulmonary disease. 3. Coronary artery disease. 4. Mild anemia. PLAN: The patient appears comfortable this morning. He is not short of breath at rest. He does state to feeling much better overall. On physical exam, mild bronchospasm remains. However, there is no significant alveolar-arterial gradient. I will continue the current nebulizer treatments and intravenous steroids (decreased yesterday) for now. The patient remains on antibiotic therapy. There are no temperatures noted. There is no leukocytosis. Clinical status of the patient appears certainly improved - compared to the initial presentation. However, given the above, the future status/prognosis for this patient does remain very guarded. I will discuss the above the attending physician. Mane Pineda MD [email or web address]
[2018-08-31] MEDS ORDERED: Magnesium Citrate Oral SOL (300 ml) PO ONE (10:14)
--- NOTE | 2018-08-31 11:20 | CARD ---
APPROVED REPORT Date of service: 08/31/2018 EKG Measurement Heart [id number] <Conclusion> Normal sinus rhythm Low voltage QRS Incomplete right bundle branch block Cannot rule out Inferior infarct, age Old? Abnormal ECG
[2018-08-31] MEDS: oxyCODONE 15 mg Immediate Release Tab PO PRN ×2 (13:37→21:19)
--- NOTE | 2018-08-31 13:57 | CP.PCM.APN ---
Subjective - Date & Time of Evaluation Date of Evaluation: 08/31/18 Time of Evaluation: 09:30 - Subjective Subjective: Pt. seen and examined at bedside. States breathing is little better, no dyspnea noted. Review of Systems - Constitutional Constitutional: absent: As Per HPI, Anorexia, Chills, Daytime Sleepiness, Excessive Sweating, Fatigue, Fever, Frequent Falls, Headache, Increased Ap petite, Lethargy, Malaise, Night Sweats, Snoring, Sleep Apnea, Weight Gain, Weight Loss, Weakness, Other - EENT Eyes: absent: As Per HPI, Blind Spots, Blurred Vision, Change in Vision, Decreased Night Vision, Diplopia, Discharge, Dry Eye, Exophthalmos, Floaters, Irritation, Itchy Eyes, Loss of Peripheral Vision, Pain, Photophobia, Requires Corrective Lenses, Sees Flashes, Spots in Vision, Tunnel Vision, Other Visual Disturbances, Loss of Vision, Other Nose/Mouth/Throat: absent: As Per HPI, Epistaxis, Nasal Congestion, Nasal Discha rge, Nasal Obstruction, Nasal Trauma, Nose Pain, Post Nasal Drip, Sinus Pain, Sinus Pressure, Bleeding Gums, Change in Voice, Dental Pain, Dry Mouth, Dysphagia, Halitosis, Hoarsness, Lip Swelling, Mouth Lesions, Mouth Pain, Odynophagia, Sore Throat, Throat Swelling, Tongue Swelling, Facial Pain, Neck Pain, Neck Mass, Other - Cardiovascular Cardiovascular: Dyspnea - Respiratory Respiratory: Dyspnea on Exertion, Chest Congestion - Gastrointestinal Gastrointestinal: absent: As Per HPI, Abdominal Pain, Belching, Bloating, Change in Bowel Habits, Change in Stool Character, Coffee Ground Emesis, Constipation, Cramping, Diarrhea, Dyspepsia, Dysphagia, Early Satiety, Excessive Flatus, Fecal Incontinence, Heartburn, Hematemesis, Hematochezia, Loose Stools, Melena, Nausea, Odynophagia, Temesmus, Vomiting, Other - Genitourinary Genitourinary: absent: As Per HPI, Change in Urinary Stream, Difficulty Urinating, Dysuria, Flank Pain, Hematuria, Pyuria, Nocturia, Urinary Incontinence, Urinary Frequency, Urinary Hesitance, Urinary Urgency, Voiding Freq/Small Amts, Freq UTI, Hx Renal/Bladder Calculi, Hx /Renal Surgery, Bladder Distension, Other - Musculoskeletal Musculoskeletal: absent: As Per HPI, Abnormal Gait, Arthralgias, Atrophy, Back Pain, Deformity, Joint Swelling, Limited Range of Motion, Loss of Height, Muscle Cramps, Muscle Weakness, Myalgias, Neck Pain, Numbness, Radiating Pain into Limb , Stiffness, Tingling, Other - Integumentary Integumentary: absent: As Per HPI, Acne, Alopecia, Bleeding Lesions, Change in Hair, Change in Nails, Change in Pigmentation, Changing Lesions, Dry Skin, Erythema, Furuncle, Hirsutism, Lesions, New Lesions, Non-Healing Lesions, Photosensitivity, Pruritus, Rash, Skin Pain, Skin Ulcer, Sores, Striae, Swelling, Unusual Bruising, Wounds, Jaundice, Other - Neurological Neurological: absent: As Per HPI, Abnormal Gait, Abnormal Hearing, Abnormal Movements, Abnormal Speech, Behavioral Changes, Burning Sensations, Confusion, Convulsions, Disequilibrium, Dizziness, Numbness, Focal Weakness, Frequent Falls, Headaches, Lack of Coordination, Loss of Vision, Memory Loss, Paresthesia s, Radicular Pain, Restless Legs, Sensory Deficit, Syncope, Tingling, Tremor, Vertigo, Weakness, Other Visual Disturbances, Other - Psychiatric Psychiatric: absent: As Per HPI, Abnormal Sleep Pattern, Anhedonia, Anxiety, Auditory Hallucinations, Behavioral Changes, Change in Appetite, Change in Libido, Confusion, Depression, Difficulty Concentrating, Hallucinations, Homicidal Ideation, Hopelessness, Irritability, Memory Loss, Mood Swings, Panic Attacks, Paranoia, Suicidal Ideation, Visual Hallucinations, Tactile Hallucinations, Other - Endocrine Endocrine: absent: As Per HPI, Change in Body Appearance, Change in Libido, Cold Intolorance, Deepening of Voice, Excessive Sweating, Fatigue, Flushing, Heat Intolorance, Increase in Ring/Shoe/Hat Size, Palpitations, Polydipsia, Polyphagia, Polyuria, Other - Hematologic/Lymphatic Hematologic: absent: As Per HPI, Easy Bleeding, Easy Bruising, Lymphadenopathy, Other Objective - Vital Signs/Intake and Output Vital Signs (last 24 hours): Temp Pulse Resp BP Pulse Ox 97.5 F L 83 22 110/75 95 08/31/18 07:54 08/31/18 10:00 08/31/18 07:54 08/31/18 09:00 08/31/18 07:54 Intake and Output: 08/31/18 08/31/18 06:59 18:59 Intake Total 1010 Output Total 1450 Balance -440 - Medications Medications: Current Medications Acetaminophen (Tylenol 325mg Tab) 650 mg PO Q4H PRN PRN Reason: Pain, Mild (1-3) Albuterol/Ipratropium (Duoneb 3 Mg/0.5 Mg (3 Ml) Ud) 3 ml IH Q2H PRN PRN Reason: Shortness of Breath Last Admin: 08/29/18 18:30 Dose: 3 ml Albuterol/Ipratropium (Duoneb 3 Mg/0.5 Mg (3 Ml) Ud) 3 ml IH [id number] [facility] Last Admin: 08/31/18 10:59 Dose: 3 ml Alprazolam (Xanax) 0.5 mg PO BID PRN; Protocol PRN Reason: Anxiety Last Admin: 08/31/18 09:09 Dose: 0.5 mg Budesonide (Pulmicort Respules) 0.5 mg IH [id number] [facility] Last Admin: 08/31/18 08:11 Dose: 0.5 mg Doxycycline Hyclate (Doryx) 100 mg PO Q12 [facility]; Protocol Furosemide (Lasix) 40 mg IVP DAILY [facility] Last Admin: 08/31/18 09:00 Dose: 40 mg Methylprednisolone (Solu-Medrol) 30 mg IVP Q12 [facility] Last Admin: 08/31/18 09:01 Dose: 30 mg Oxycodone HCl (Oxycontin Extended Release Tab) 20 mg PO Q12 [facility] Last Admin: 08/31/18 09:00 Dose: 20 mg Oxycodone HCl (Oxycodone Immediate Release Tab) 15 mg PO Q6H PRN PRN Reason: Pain, moderate (4-7) Last Admin: 08/31/18 13:37 Dose: 15 mg Potassium Chloride (Klor-Con 10) 10 meq PO DAILY [facility] Last Admin: 08/31/18 09:00 Dose: 10 meq Roflumilast (Daliresp) 500 mcg PO DAILY [facility] Last Admin: 08/31/18 09:00 Dose: 500 mcg Sotalol HCl (Betapace) 80 mg PO BID [facility] Last Admin: 08/31/18 08:59 Dose: 80 mg Verapamil HCl (Calan Sr Tab) 180 mg PO DAILY [facility] Last Admin: 08/31/18 08:59 Dose: 180 mg - Labs Labs: 08/30/18 06:00 08/30/18 06:00 PT 10.6 SECONDS (9.4-12.5) 08/29/18 03:20 INR 0.94 08/29/18 03:20 APTT 23.3 Seconds (26.9-38.3) L 08/29/18 03:20 - Constitutional Appears: Well, Non-toxic, No Acute Distress - Head Exam Head Exam: NORMOCEPHALIC - Eye Exam Eye Exam: Normal appearance - Neck Exam Neck Exam: Full ROM, Normal Inspection - Respiratory Exam Respiratory Exam: Rales - Cardiovascular Exam Cardiovascular Exam: REGULAR RHYTHM, +S1, +S2 - GI/Abdominal Exam GI & Abdominal Exam: Soft, Normal Bowel Sounds - Rectal Exam Rectal Exam: Deferred - Exam Exam: absent: Circumcision, NORMAL INSPECTION, Scrotal Swelling, Testicular Tenderness, Uretheral Discharge, Testicular Vertical Lie, Bladder Distension External exam: absent: Ecchymosis, Erythema, Lacerations, Lesions, NORMAL EXTERNAL EXAM, Swelling Speculum exam: absent: Cervical Discharge, Erythema, Foreign Body, Laceration, NORMAL SPECULUM EXAM, Tissue, Vaginal Bleeding, Vaginal Discharge Bimanual exam: absent: Adenexal Mass, Adnexal, Cervical Motion Tendernes, NORMAL BIMANUAL EXAM, Uterine Enlargement, Uterine Tenderness - Extremities Exam Extremities Exam: Full ROM - Back Exam Back Exam: NORMAL INSPECTION - Neurological Exam Neurological Exam: Alert, Awake, Oriented x3 - Psychiatric Exam Psychiatric exam: Normal Affect, Normal Mood - Skin Skin Exam: Dry, Intact, Normal Color, Warm Assessment and Plan - Assessment and Plan (Free Text) Assessment: ITS Impressions Chest X-Ray 08/29/18 02:46 IMPRESSION: Lower lobe infiltrates/atelectasis common new findings compared to . Chest CT 08/30/18 11:31 IMPRESSION: 1. Linear atelectasis or fibrosis in both both bases. Bronchial thickening may indicate bronchitis of acute or even chronic time frame. Still, reactive airways disease is a possibility. 2. No significant lymphadenopathy. 3. Multiple thoracic spinal compression fractures with postcontrast vertebro focal plasty changes present at L1 and L2 vertebral bodies. 4. Prior lumbar vertebroplasty and multilevel compression fracture of indeterminate age the mid to inferior thoracic spine. 5. Other lesser findings as discussed above. Assessment: 58 yr.male w. PMH COPD, ATrial fibrillation, non-ischemic cardiomyopathy, CHF admitted with COPD exacerbation for further eval and treatment. Plan: 1. Copd Exacerbation- slight improvement, with rhales and congestion heard to lung sousa. -Solumedrol weaning as per pulm. Duonebs and bronchodilators as per pulm. - Monitor oxygen saturation on supplemental oxygen nasal cannula. Will continue to follow clinical status. awaiting pulm clearance for DC home, poss Mon./Monday.
--- NOTE | 2018-08-31 15:05 | PN ---
DATE: SUBJECTIVE: The patient is 58 years old, seen and examined, not doing that well, complains of wheezing, short of breath with minimal mobility. Has been coughing. PHYSICAL EXAMINATION VITAL SIGNS: He is afebrile. Pulse 94, respirations 22, blood pressure 110/75. LUNGS: Bilateral soft crackles, more pronounced . HEART: S1 and S2 audible. ABDOMEN: Soft, nontender. No rebound. No guarding. NEUROLOGIC: The patient is awake, alert, oriented, able to communicate. EXTREMITIES: Bilateral leg, no edema. LABORATORY DATA: Blood cultures are negative. CT scan negative for pneumonia; however, he has atelectasis. ASSESSMENT AND PLAN: 1. Chronic obstructive pulmonary disease exacerbation. 2. Bronchospasm. 3. Asthmatic bronchitis. 4. Hypertension. 5. Hyperlipidemia. 6. Nonischemic cardiomyopathy. 7. Chronic back pain and has multiple kyphoplasties done. PLAN: We will continue the patient on current medications. There is no evidence of pneumonia. We will discontinue IV antibiotics, put him on p.o. for bronchitis. Continue steroids. Continue nebulizer treatment. He has complained of constipation. We will give him a dose of magnesium citrate. Ross Bowman MD
[2018-09-01] MEDS: Albuterol-Ipratrop 3 mg / 0.5 (3 ml) UD IH SCH ×5 (03:54→19:40)
[2018-09-01] MEDS: oxyCODONE 15 mg Immediate Release Tab PO PRN ×2 (05:06→15:28)
[2018-09-01] MEDS: MethylPREDNISolone 40 mg Vial IVP SCH ×2 (09:37→21:40)
[2018-09-01] MEDS: Potassium Chloride 10 mEq ER Tab PO SCH (09:37)
[2018-09-01] MEDS: Verapamil 180 mg ER Tab PO SCH (09:40)
[2018-09-01] MEDS: oxyCODONE 20 mg ER Tab (oxyCONTIN) PO SCH ×2 (09:40→21:39)
[2018-09-01] MEDS: Budesonide 0.5 mg/2 ml Inhal Susp UD IH SCH ×2 (10:40→19:40)
--- NOTE | 2018-09-01 14:14 | PN ---
DATE: 09/01/2018 PULMONARY PROGRESS NOTE SUBJECTIVE: The patient was seen and examined at bedside. He is short of breath with some minimal exertion, but not short of breath at rest. PHYSICAL EXAMINATION: VITAL SIGNS: His temperature is 98, pulse 92, respirations 22, blood pressure is 114/77, and oxygen saturation is 94 on nasal cannula. HEAD: Normocephalic and atraumatic. NECK: Supple. There is no jugular vein distention. CARDIOVASCULAR: Systolic ejection murmur at the lower left sternal border. No S3 gallop. LUNGS: Bilateral rhonchi and expiratory wheezes. Moderate airway obstruction. EXTREMITIES: 1+ pedal edema. No cyanosis. GASTROINTESTINAL: Soft, nontender. No organomegaly. SKIN: No acute skin rash. NEUROLOGIC: No focal deficits. LABORATORY DATA: Pertinent data reviewed. CT scan of the chest was done and reviewed. This revealed minimal bibasilar scarring and actual improvement compared to the last CT scan. ASSESSMENT: 1. Advanced chronic obstructive pulmonary disease. 2. Chronic severe respiratory insufficiency. 3. Coronary artery disease. 4. Mild anemia. PLAN: We will continue with maximum administration of bronchodilators as well as steroids. He is short of breath on mild exertion, but more comfortable at rest. He still is hypoxic of oxygen. We will continue his current nebulizer and oxygen administration. Jp Lacy MD
[2018-09-01] MEDS: Albuterol-Ipratrop 3 mg / 0.5 (3 ml) UD IH PRN ×2 (14:37→16:50)
--- NOTE | 2018-09-01 15:19 | PN ---
DATE: 09/01/2018 SUBJECTIVE: The patient is a 58-year-old, seen and examined. Denies cough, congestion, and wheezing. Gets short of breath. He has a couple of bowel movements where he was whacked out for a few days and he feels very exhausted today. PHYSICAL EXAMINATION: VITAL SIGNS: He is afebrile, pulse 79, respirations 20, blood pressure 117/78. LUNGS: Bilateral fair air flow. Has bilateral dense wheezing; more pronounced posteriorly. HEART: S1 and S2 audible. Regular rate and rhythm. ABDOMEN: Soft, nontender. No rebound. No guarding. NEUROLOGIC: The patient is awake, alert, oriented. Communicative. LABORATORY DATA: Procalcitonin is 0.05. ASSESSMENT: 1. Chronic obstructive pulmonary disease exacerbation. 2. Bronchospasm. 3. Nonischemic cardiomyopathy. 4. History of hypertension, currently hypotensive. 5. History of atrial fibrillation, but status post ablation. PLAN: The plan is, we will continue the patient on current medications. Continue nebulizer treatment. Continue IV diuretics. We will cut down his steroids and possibly discharge him in a.m. Ross Bowman MD
[2018-09-01] MEDS: Simethicone 80 mg Chewtab PO PRN (22:24)
[2018-09-02] MEDS: Albuterol-Ipratrop 3 mg / 0.5 (3 ml) UD IH SCH ×7 (00:25→23:58)
[2018-09-02] MEDS: oxyCODONE 15 mg Immediate Release Tab PO PRN ×2 (02:55→14:43)
[2018-09-02 06:52] VITALS: RESP 20
[2018-09-02] MEDS: Budesonide 0.5 mg/2 ml Inhal Susp UD IH SCH ×2 (07:29→20:43)
[2018-09-02] MEDS: Verapamil 180 mg ER Tab PO SCH (09:49)
[2018-09-02] MEDS: MethylPREDNISolone 40 mg Vial IVP SCH ×2 (09:49→22:06)
[2018-09-02] MEDS: Potassium Chloride 10 mEq ER Tab PO SCH (09:49)
[2018-09-02] MEDS: oxyCODONE 20 mg ER Tab (oxyCONTIN) PO SCH ×3 (09:50→22:53)
[2018-09-02] MEDS: POLYETHYLENE GLYCOL 3350 17 GM/Dose PACKET PO SCH (12:22)
--- NOTE | 2018-09-02 19:55 | PN ---
DATE: 09/02/2018 SUBJECTIVE: The patient is a 58-year-old, seen and examined, less shortness of breath. He states it takes a lot for him to go to the bathroom, he feel very exhausted, still have wheezing and coughing. PHYSICAL EXAMINATION VITAL SIGNS: He is afebrile, pulse 96, respirations 18, blood pressure 111/79. LUNGS: Bilateral expiratory rhonchi, dense, more posteriorly. HEART: S1 and S2 audible. ABDOMEN: Soft and nontender. No rebound. No guarding. NEUROLOGIC: The patient is awake, alert, oriented and communicative. EXTREMITIES: Moves all extremities. ASSESSMENT: 1. Chronic obstructive pulmonary disease exacerbation. 2. Dense bronchospasm. 3. Asthmatic bronchitis. 4. History of atrial fibrillation, status post ablation. 5. Degenerative disc disease, status post multiple angioplasties. PLAN: I will cut down patient's steroid. Continue him on sotalol and verapamil. He is currently on doxycycline. Continue him on all his analgesic. We will decrease his steroid in the a.m. and possible discharge. Ross Bowman MD
[2018-09-02] MEDS ORDERED: Aritificial Tears (15ml) OD PRN (21:42)
[2018-09-02] MEDS ORDERED: Lubricant Eye Drops UD OD PRN (22:30)
[2018-09-03] MEDS: Albuterol-Ipratrop 3 mg / 0.5 (3 ml) UD IH SCH ×3 (03:57→15:18)
[2018-09-03] MEDS: oxyCODONE 15 mg Immediate Release Tab PO PRN (05:25)
[2018-09-03] MEDS: Budesonide 0.5 mg/2 ml Inhal Susp UD IH SCH (07:43)
--- NOTE | 2018-09-03 08:24 | PN ---
DATE: 09/03/2018 PULMONARY NOTE SUBJECTIVE: The patient appears very comfortable this morning. He is not short of breath at rest. PHYSICAL EXAMINATION: VITALS: Temperature is 97.8, pulse 79, respirations 18, and blood pressure 109/68. Oxygen saturation on nasal cannula is 96%. HEENT: Normocephalic, atraumatic. No JVD. CARDIOVASCULAR: Systolic ejection murmur at the lower left sternal border. No S3 gallop. LUNGS: Clear bilaterally. EXTREMITIES: Mild edema. No cyanosis. No clubbing. Calves are nontender to palpation. GASTROINTESTINAL: Abdomen is soft, nontender, and nondistended. Bowel sounds are positive. SKIN: No acute rash. NEUROLOGIC: Exam limited at the present time. IMPRESSION: 1. Recurrent bronchitis. 2. Very advanced chronic obstructive pulmonary disease. 3. Coronary artery disease. 4. Mild anemia. PLAN: The patient appears very comfortable this morning. He is not short of breath at rest. He does state to feeling much, much better overall. On physical exam, his lungs are now clear. In addition, there is no significant alveolar-arterial gradient. I will continue the current nebulizer treatments and change to oral steroids this morning. The patient also remains on oral antibiotic therapy. There are no temperatures noted. There is no leukocytosis. Clinical status of the patient is significantly improved - compared to the initial presentation. However, given the above, the future status/prognosis for this patient does remain guarded. The patient is for discharge in the very near future - hopefully today. I will discuss the above with the attending physician. Mane Pineda MD MTDD
[2018-09-03 08:47] VITALS: BP 127/80; PULSE 83; TEMP 97.9; O2SAT 98
[2018-09-03] MEDS: Albuterol-Ipratrop 3 mg / 0.5 (3 ml) UD IH PRN (09:58)
[2018-09-03] MEDS: Simethicone 80 mg Chewtab PO PRN (10:41)
[2018-09-03] MEDS: oxyCODONE 20 mg ER Tab (oxyCONTIN) PO SCH (10:42)
[2018-09-03] MEDS: Verapamil 180 mg ER Tab PO SCH (10:42)
[2018-09-03] MEDS: Potassium Chloride 10 mEq ER Tab PO SCH (10:44)
[2018-09-03] MEDS: POLYETHYLENE GLYCOL 3350 17 GM/Dose PACKET PO SCH (10:45)
--- NOTE | 2018-09-03 13:30 | CP.PCM.APN ---
Objective - Vital Signs/Intake and Output Vital Signs (last 24 hours): Temp Pulse Resp BP Pulse Ox 97.9 F 83 20 127/80 98 09/03/18 08:46 09/03/18 10:44 09/03/18 08:46 09/03/18 10:44 09/03/18 08:46 Intake and Output: 09/03/18 09/03/18 06:59 18:59 Intake Total 960 Output Total 800 Balance 160 - Medications Medications: Current Medications Acetaminophen (Tylenol 325mg Tab) 650 mg PO Q4H PRN PRN Reason: Pain, Mild (1-3) Albuterol/Ipratropium (Duoneb 3 Mg/0.5 Mg (3 Ml) Ud) 3 ml IH Q2H PRN PRN Reason: Shortness of Breath Last Admin: 09/03/18 09:58 Dose: 3 ml Albuterol/Ipratropium (Duoneb 3 Mg/0.5 Mg (3 Ml) Ud) 3 ml IH [id number] [facility] Last Admin: 09/03/18 07:43 Dose: 3 ml Alprazolam (Xanax) 0.5 mg PO BID PRN; Protocol PRN Reason: Anxiety Last Admin: 09/03/18 10:43 Dose: 0.5 mg Artificial Tears (Refresh Opth Soln) 0 ml OD Q6H PRN PRN Reason: Dry eyes Last Admin: 09/03/18 05:24 Dose: 1 drop Atorvastatin Calcium (Lipitor) 10 mg PO DIN [facility] Last Admin: 09/02/18 17:26 Dose: 10 mg Budesonide (Pulmicort Respules) 0.5 mg IH [id number] [facility] Last Admin: 09/03/18 07:43 Dose: 0.5 mg Doxycycline Hyclate (Doryx) 100 mg PO Q12 [facility]; Protocol Last Admin: 09/03/18 10:44 Dose: 100 mg Furosemide (Lasix) 40 mg IVP DAILY [facility] Last Admin: 09/03/18 10:41 Dose: 40 mg Oxycodone HCl (Oxycontin Extended Release Tab) 20 mg PO Q12 [facility] Last Admin: 09/03/18 10:42 Dose: 20 mg Oxycodone HCl (Oxycodone Immediate Release Tab) 15 mg PO Q6H PRN PRN Reason: Pain, moderate (4-7) Last Admin: 09/03/18 05:25 Dose: 15 mg Polyethylene Glycol (Miralax) 17 gm PO DAILY [facility] Last Admin: 09/03/18 10:45 Dose: Not Given Potassium Chloride (Klor-Con 10) 10 meq PO DAILY [facility] Last Admin: 09/03/18 10:44 Dose: 10 meq Prednisone (Prednisone Tab) 40 mg PO DAILY [facility] Last Admin: 09/03/18 10:43 Dose: 40 mg Roflumilast (Daliresp) 500 mcg PO DAILY [facility] Last Admin: 09/03/18 10:43 Dose: 500 mcg Simethicone (Mylicon Chew Tab) [address] [facility] PRN PRN Reason: GI distress Last Admin: 09/03/18 10:41 Dose: 80 mg Sotalol HCl (Betapace) 80 mg PO BID [facility] Last Admin: 09/03/18 10:44 Dose: 80 mg Verapamil HCl (Calan Sr Tab) 180 mg PO DAILY [facility] Last Admin: 09/03/18 10:42 Dose: 180 mg - Labs Labs: 08/30/18 06:00 08/30/18 06:00 PT 10.6 SECONDS (9.4-12.5) 08/29/18 03:20 INR 0.94 08/29/18 03:20 APTT 23.3 Seconds (26.9-38.3) L 08/29/18 03:20 BPCI/TIC - BPCIA/TIC Educated pt/family on BPCIA/CIR/Med to Bed Programs: Yes Flyers given, including CMS Beneficiary letter: Yes Pt/family verbalized understanding & agreed to program: Yes
--- NOTE | 2018-09-03 14:49 | DS ---
HISTORY OF PRESENT ILLNESS: The patient is 58 years old, seen and examined; anxious to go home, although he feels weak, winded, and tired. No active cough or congestion. PHYSICAL EXAMINATION VITAL SIGNS: He is afebrile, pulse 83, respirations 20, and blood pressure 127/80. LUNGS: Bilateral diffusely decreased breath sounds, occasional expiratory rhonchi. HEART: S1 and S2 audible. ABDOMEN: Soft and nontender. No rebound. No guarding. NEUROLOGIC: The patient is awake, alert, oriented, and communicative. ASSESSMENT: 1. Chronic obstructive pulmonary disease exacerbation. 2. Asthmatic bronchitis. 3. Hypertension. 4. Hyperlipidemia. 5. History of atrial fibrillation, status post ablation. 6. Degenerative disc disease, status post multiple kyphoplasties. PLAN: We will discharge the patient home today. He can resume his steroid 20 mg twice a day for three days, then he will take 5 mg three times a day, and he will continue nebulizer treatment. He will resume his medications that include prednisone, verapamil, Daliresp, potassium, Lasix, Pepcid and Xanax as needed. Ross Bowman MD
--- NOTE | 2018-09-03 18:47 | PN ---
DATE: 09/03/2018 LOCATION: The patient is in room 360, bed 2. REASON FOR CONSULTATION: Shortness of breath, history of paroxysmal atrial fibrillation, right heart dysfunction, mild LV dysfunction, hypertension, history of GI bleeding. BRIEF HISTORY: The patient was admitted with mild shortness of breath, cough and expectoration. The patient was found to have exacerbation of acute COPD. The patient now has been showing improvement with shortness of breath, cough and expectoration. Denies chest pain or palpitation. The patient's detailed cardiac history is mentioned in our consult of . PHYSICAL EXAMINATION: VITAL SIGNS: Blood pressure 127/80, respirations 20, pulse 83, temperature 97.9. HEENT: Head: Normocephalic. Eyes: Pupils normal. Conjunctivae slightly pale. NECK: JVP low. Carotid equal. THORAX: AP diameter normal. LUNGS: No significant rales. CARDIOVASCULAR: S1 and S2. ABDOMEN: Soft and nontender. No organomegaly. EXTREMITIES: No clubbing. No cyanosis. LABORATORY DATA: Labs done on 08/30/2018, and there were reportedly no previous notes. DIAGNOSES: Acute exacerbation of chronic obstructive pulmonary disease; respiratory tract infection; history of right heart dysfunction; [id number] pulmonary hypertension; cardiomyopathy in the past, which showed improvement; mild left ventricular dysfunction; history of chronic paroxysmal atrial fibrillation, status post ablation and the patient even after that continued to have paroxysmal atrial fibrillation; hypertension; anemia; back pain; kyphoplasty of spine; history of gastrointestinal bleeding. Since the patient had massive gastrointestinal bleeding, the patient and family refused anticoagulation since then. PLAN: The patient continues to show improvement with present therapy, so we will continue sotalol 80 mg b.i.d.; verapamil ER, which is long acting, 180 mg p.o. daily; Daliresp 500 mcg p.o. daily; doxycycline hyclate 100 mg p.o. every 12 hours; DuoNeb nebulizer therapy; furosemide 40 IV daily; potassium 10 daily; prednisone 40 daily. We will follow with you, and when the patient is stable, he probably will need second attempted ablation and the patient can follow outpatient for that. Shaila Resendez MD
== END 2018-09-03 15:08 | disposition home or self-care (01) | DRG 191 ==
LOC: ED 02:29 → ERH 05:35 → 3RNO 16:36 → OBSVTOIN 08-30 12:00
PROVIDERS: ADMIT Internal Medicine; ATTEND Internal Medicine
DX: J44.1 Chronic obstructive pulmonary disease with (acute) exacerbation (principal); I42.9 Cardiomyopathy, unspecified; I50.22 Chronic systolic (congestive) heart failure; I11.0 Hypertensive heart disease with heart failure; I48.0 Paroxysmal atrial fibrillation; I25.10 Atherosclerotic heart disease of native coronary artery without angina pectoris; I27.20 Pulmonary hypertension, unspecified; M48.56XD Collapsed vertebra, not elsewhere classified, lumbar region, subsequent encounter for fracture with routine healing; D64.9 Anemia, unspecified; M54.9 Dorsalgia, unspecified; G89.29 Other chronic pain; E78.5 Hyperlipidemia, unspecified; Z87.891 Personal history of nicotine dependence; Z99.81 Dependence on supplemental oxygen; Z79.01 Long term (current) use of anticoagulants; I25.2 Old myocardial infarction; Z79.899 Other long term (current) drug therapy; Z87.11 Personal history of peptic ulcer disease

== ENCOUNTER 2018-10-06 11:57 | Inpatient (IN) | payer MEDICARE, MEDICAID ==
[2018-10-06] MEDS: Albuterol-Ipratrop 3 mg / 0.5 (3 ml) UD IH SCH ×3 (12:25→13:05)
[2018-10-06 12:37] LABS: VENOUS BLOOD GAS PO2 34 mm/Hg (30-55)
--- NOTE | 2018-10-06 12:38 | ED PDOC ---
Arrival/HPI - General Chief Complaint: Shortness Of Breath Time Seen by Provider: 10/06/18 12:00 Historian: Patient - History of Present Illness Narrative History of Present Illness (Text): 58 yr old male w/ hx of COPD on 3L home o2, HTN, CHF, anemia, AFib w/ ablation, p/w shortness of breath. Pt notes waking up this morning with shortness of breath at 3am. He notes chest tightness but no chest pressure. He also noted a fever this morning to 102 which resolved on its own. He denies any abdominal pain, urinary complaints, nausea or vomiting. No rash. He notes chills but no night sweats. Hemoptysis. He notes a mild sore throat but no change in phonation or dysphagia. No leg swelling. No dark or bloody stool. no other complaints. Past Medical History - Provider Review Nursing Documentation Reviewed: Yes - Past History Past History: No Previous - Infectious Disease Hx of Infectious Diseases: None - Tetanus Immunization Tetanus Immunization: Unknown - Past Medical History Past Medical History: Non-Contributing - Cardiac Hx Cardiac Disorders: Yes (Cardiomyopathy, afib) - Pulmonary Hx Chronic Obstructive Pulmonary Disease (COPD): Yes - Neurological Hx Neurological Disorder: No - HEENT Hx Cataracts: Yes - Renal Hx Renal Disorder: No - Endocrine/Metabolic Hx Diabetes Mellitus Type 2: (pt denies) - Hematological/Oncological Hx Anemia: Yes (blood transfusion) - Integumentary Other/Comment: tatoos r arm, multiple skin discolorations left arm, ble dry skin, scratch morales lle, discolored skin ble - Musculoskeletal/Rheumatological Hx Falls: No - Gastrointestinal Hx Gastrointestinal Disorders: Yes (appendectomy,colon sx,gerd) - Genitourinary/Gynecological Hx Genitourinary Disorders: Yes - Psychiatric Hx Anxiety: Yes 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") - Past Surgical History Past Surgical History: Non-Contributing - Surgical History Other/Comment: Ablation (h/o afib), colon sx age 1 to remove swallowed coins, had cataract sx this am - Anesthesia Hx Anesthesia: Yes Hx Anesthesia Reactions: No Hx Malignant Hyperthermia: No - Suicidal Assessment Feels Threatened In Home Enviroment: No Family/Social History - Physician Review Nursing Documentation Reviewed: Yes Family/Social History: No Known Family HX Smoking Status: Former Smoker Hx Alcohol Use: Yes (ocasional) 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") 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 Hx Substance Use Treatment: Yes Allergies/Home Meds Allergies/Adverse Reactions: Allergies No Known Allergies Allergy (Verified 10/06/18 12:07) Home Medications: Home Meds Medication Instructions Recorded Confirmed Alprazolam [Xanax] 0.5 mg PO BID 08/13/17 10/06/18 Potassium Chloride [Klor-Con 10 meq PO DAILY 08/13/17 10/06/18 Sprinkle] predniSONE [predniSONE Tab] 5 mg PO TID 08/13/17 10/06/18 Furosemide [Lasix] 20 mg PO DAILY 08/29/18 10/06/18 Roflumilast [Daliresp] 500 mcg PO DAILY 08/29/18 10/06/18 Verapamil [Calan SR Tab] 180 mg PO DAILY 08/29/18 10/06/18 Aspirin [Ecotrin] 81 mg PO DAILY 10/06/18 10/06/18 Cholecalciferol [Vitamin D] 50,000 iu PO QWK 10/06/18 10/06/18 Oxycodone HCl [Oxycontin] 20 mg PO BID 10/06/18 10/06/18 Pantoprazole Sodium [Protonix] 40 mg PO DAILY 10/06/18 10/06/18 Sotalol [Sorine] 80 mg PO BID 10/06/18 10/06/18 oxyCODONE [oxyCODONE Immediate 15 mg PO BID 10/06/18 10/06/18 Release Tab] Review of Systems - Review of Systems Constitutional: Fevers. absent: Fatigue, Weight Change Eyes: absent: Vision Changes, Photophobia, Eye Pain ENT: Sore Throat. absent: Hearing Changes, Tinnitus, TMJ Pain, Voice Changes, Rhinorrhea, Epistaxis, Sinus Congestion Respiratory: SOB, Cough, Sputum Cardiovascular: Chest Pain, JARA. absent: Palpitations, Edema, Calf Pain, Syncope Gastrointestinal: absent: Abdominal Pain, Stool Changes, Constipation, Diarrhea, Nausea, Vomiting, Appetite Changes, Hematochezia, Hematemesis Genitourinary Male: absent: Dysuria, Frequency Musculoskeletal: absent: Arthralgias, Back Pain Skin: absent: Rash, Pruritis, Skin Lesions, Laceration, Cellulitis Neurological: absent: Headache, Dizziness Endocrine: absent: Diaphoresis Hemo/Lymphatic: absent: Adenopathy Physical Exam Vital Signs Reviewed: Yes Vital Signs Temp Pulse Resp BP Pulse Ox 10/06/18 11:58 99.3 F 92 H 18 104/42 L 95 Temperature: Afebrile Blood Pressure: Normal Pulse: Regular Respiratory Rate: Normal Appearance: Positive for: Non-Toxic Pain Distress: None Mental Status: Positive for: Alert and Oriented X 3 - Systems Exam Head: Present: Atraumatic, Normocephalic. No: Tenderness Pupils: Present: PERRL Extroacular Muscles: Present: EOMI Conjunctiva: Present: Normal Ears: Present: Normal Mouth: Present: Moist Mucous Membranes Pharnyx: Present: Normal. No: ERYTHEMA, EXUDATE, TONSILS ENLARGED, Peritonsilar Swelling, Uvular Deviation, Muffled/Hoarse Voice, Strider Nose (External): Present: Atraumatic. No: Abrasion Nose (Internal): Present: Normal Inspection Neck: Present: Normal Range of Motion. No: Meningeal Signs, MIDLINE TENDERNESS, Paraspinal Tenderness, JVD Respiratory/Chest: Present: Wheezes, Other (speaking in 4 word sentences). No: Accessory Muscle Use, Rales, Retracting, Rhonchi Cardiovascular: Present: Regular Rate and Rhythm, Peripheal Pulses Present. No: Tachycardic, Bradycardic, Rub, Gallop, Muffled Abdomen: Present: Normal Bowel Sounds. No: Tenderness, Distention, Peritoneal Signs Back: Present: Normal Inspection. No: CVA Tenderness, Midline Tenderness Upper Extremity: Present: Normal Inspection, Normal ROM, NORMAL PULSES, Neurovascularly Intact, Capillary Refill < 2s. No: Cyanosis, Edema, Deformity Lower Extremity: Present: Normal Inspection, Edema, NORMAL PULSES, Neurovascularly Intact, Capillary Refill < 2 s. No: Cyanosis, Deformity Neurological: Present: GCS=15, CN II-XII Intact, Speech Normal Skin: Present: Warm, Dry Psychiatric: Present: Alert, Oriented x 3, Normal Insight Medical Decision Making ED Course and Treatment: 58 yr old male w/ hx of COPD, anemia, Afib w/ ablation, CHF p/w sob. Likely COPD exacerbation given wheezes b/l. Pt speaking in 5 word sentance, mild respiratoy distress but comfortable. Vitals otherwise unremarakble. Given comorbidity will likely require stay for copd exacerbation. No meningeal signs, abdominal pain or dark or bloody stool. EK, nsr, no stemi 10/06/18 12:50 Xray unremarkable 10/06/2018 13:25 Chest X-Ray IMPRESSION: No interval acute cardiopulmonary disease appreciated. Dictator: Phu Jackson MD 10/06/18 13:50 Mildly elevated wbc Lactic elevated at 2.5 mildly tachy upon arrival techinically SIRS+, but without source Abx ordered for COPD. labs otherwise unremarkable. Pt in NAD, much improved from earlier, speaking full sentences in NAD, lungs with minimal wheezes appreciate consult w/ Dr. Bowman: to be admitted to her service - Lab Interpretations I have reviewed the lab results: Yes - RAD Interpretation Radiology Orders: 10/06/18 12:08 CHEST PORTABLE [RAD] Stat - Medication Orders Current Medication Orders: Albuterol/Ipratropium (Duoneb 3 Mg/0.5 Mg (3 Ml) Ud) 3 ml IH Q15M ERNESTINA Stop: 10/06/18 12:46 Last Admin: 10/06/18 12:25 Dose: 3 ml Discontinued Medications Methylprednisolone (Solu-Medrol) 125 mg IVP STAT STA Stop: 10/06/18 12:09 Disposition/Present on Arrival - Present on Arrival Any Indicators Present on Arrival: No History of DVT/PE: No History of Uncontrolled Diabetes: No Urinary Catheter: No History of Decub. Ulcer: No History Surgical Site Infection Following: None - Disposition Have Diagnosis and Disposition been Completed?: Yes Diagnosis: COPD (chronic obstructive pulmonary disease) Disposition: HOSPITALIZED Disposition Time: 13:47 Patient Problems: Current Active Problems Problem Status Onset Chronic obstructive pulmonary disease Acute Condition: STABLE
[2018-10-06 13:00] LABS: BASO # 0.01 K/mm3 (0.0-2.0); BASO % 0.1 % (0.0-3.0); EOS # 0.1 (0.0-0.7); EOS % 0.4 % (1.5-5.0); LYMPH # 0.5 (1.2-3.4); LYMPH % 3.5 % (22.0-35.0); MEAN CELL VOLUME 88.7 fl (80.0-105.0); MEAN CORPUSCULAR HEMOGLOBIN 27.8 pg (25.0-35.0); MEAN CORPUSCULAR HGB CONC 31.3 g/dl (31.0-37.0); MEAN PLATELET VOLUME 9.6 fl (7.0-11.0); MONO # 0.8 (0.1-0.6); MONO % 6.1 % (1.0-6.0); PLATELET COUNT 191 10^3/uL (120.0-450.0); RBC 4.32 10^6/uL (3.5-6.1); RED CELL DISTRIBUTION WIDTH 15.9 % (11.5-14.5); WHITE BLOOD COUNT 13.6 10^3/uL (4.5-11.0)
[2018-10-06 13:04] LABS: ALB/GLOB RATIO 1.5 (1.1-1.8); ALBUMIN 4.2 g/dL (3.0-4.8); ALT/SGPT 51 U/L (7-56); AST/SGOT 34 U/L (17-59); BLOOD UREA NITROGEN 14 mg/dL (7-21); CALCIUM 9.3 mg/dL (8.4-10.5); GFR NON-AFRICAN AMERICAN > 60; INR 0.93; PARTIAL THROMBOPLASTIN TIME 25.4 Seconds (26.9-38.3); PROTHROMBIN TIME 10.5 SECONDS (9.4-12.5)
[2018-10-06 13:07] LABS: INFLUENZA A B NEGATIVE FOR FLU A/B (NEGATIVE)
[2018-10-06 13:16] LABS: B-TYPE NATRIURETIC PEPTIDE 117 pg/mL (0-450); TROPONIN I < 0.01 ng/mL
[2018-10-06 13:22] LABS: VENOUS BLOOD GAS BASE EXCESS 6.9 mmol/L (0.0-2.0); VENOUS BLOOD GAS PO2 78 mm/Hg (30-55); VENOUS BLOOD PH 7.41 (7.32-7.43)
--- NOTE | 2018-10-06 13:24 | RAD ---
Date of service: 10/06/2018 HISTORY: sob/ cough COMPARISON: Portable chest 08/29/2018. FINDINGS: LUNGS: No active pulmonary disease. PLEURA: No significant pleural effusion identified, no pneumothorax apparent. CARDIOVASCULAR: Calcific atherosclerotic changes are seen related to the thoracic aorta. Normal cardiac size. No pulmonary vascular congestion. OSSEOUS STRUCTURES: Post vertebroplasty changes identified at the inferior thoracic or upper lumbar spine. VISUALIZED UPPER ABDOMEN: Normal. OTHER FINDINGS: None. IMPRESSION: No interval acute cardiopulmonary disease appreciated.
[2018-10-06 13:25] LABS: ANISOCYTOSIS SLIGHT; BAND 2 % (0-2); LYMPHOCYTE 5 % (22.0-35.0); MONOCYTE 2 % (1.0-6.0); NEUTROPHIL 91 % (50.0-70.0); PLATELET ESTIMATE NORMAL (NORMAL)
[2018-10-06] MEDS ORDERED: cefTRIAXone 1 gm 1 GM/100 ML BAG IVPB ONE (13:40)
[2018-10-06 17:26] LABS: VENOUS BLOOD GAS BASE EXCESS 4.5 mmol/L (0.0-2.0); VENOUS BLOOD GAS PO2 42 mm/Hg (30-55); VENOUS BLOOD PH 7.37 (7.32-7.43)
[2018-10-06] MEDS ORDERED: oxyCODONE 20 mg ER Tab (oxyCONTIN) PO PRN (17:49)
[2018-10-06] MEDS ORDERED: oxyCODONE 20 mg ER Tab (oxyCONTIN) PO SCH (18:00)
[2018-10-06] MEDS ORDERED: oxyCODONE 15 mg Immediate Release Tab PO SCH (18:00)
[2018-10-06] MEDS: POLYETHYLENE GLYCOL 3350 17 GM/Dose PACKET PO SCH (18:03)
[2018-10-06] MEDS: oxyCODONE 20 mg ER Tab (oxyCONTIN) PO SCH (18:03)
[2018-10-06 18:19] VITALS: BMI 26.6
[2018-10-06] MEDS ORDERED: Influenza Vaccine 60 mcg/0.5 mL SYR (4YR UP) IM ONE (18:20)
[2018-10-06] MEDS ORDERED: Pneumococcal 23-Valent Vaccine IM ONE (18:20)
[2018-10-06] MEDS: Levalbuterol 1.25 MG/3 ML Inhal Soln UD IH SCH (20:09)
--- NOTE | 2018-10-06 20:43 | HP ---
DATE OF EXAM: 10/06/2018 HISTORY OF PRESENT ILLNESS: The patient is a 58-year-old came to the emergency room because of chest pressure and increasing shortness of breath. The patient states he was having pounding headache and shortness of breath was associated with some chest tightness and noted fever this morning. The patient was seen in office last week. He was doing well. There was no mention of any cough, congestion; however, he get short of breath with minimal exertion with recent nausea, vomiting and diarrhea. Last week, he had epidural by . Because of above symptoms, his called the ambulance and he was brought to emergency room. PAST MEDICAL HISTORY: Significant for: 1. History of hypertension, but lately he is running hypotensive. 2. COPD secondary to heavy smoking. 3. Oxygen dependent COPD. 4. History of AFib, status post ablation. Currently, he is on sotalol and his heart rate seems to be controlled. Currently, he is on aspirin. He used to be on Coumadin followed by [facility], but all anticoagulant has been stopped since he has been in sinus rhythm. 5. History of GI bleed, underwent upper endoscopy and colonoscopy and was found to be unremarkable. He also underwent capsule endoscopy, capsule gotten stuck and was removed surgically. 6. History of multiple compression fracture, status post kyphoplasties. 7. History of multiple epidurals in the past. ALLERGIES: HE IS NOT ALLERGIC TO ANY MEDICATION. MEDICATIONS AT HOME: He is on sotalol 80 mg twice a day, prednisone 5 mg three times a day, MS Contin 50 mg twice a day, verapamil 180 mg daily, Daliresp 500 mcg daily, potassium 10 mEq daily, Protonix 40 daily, Oxycodone 20 mg twice a day as needed, Lasix 20 mg daily, aspirin 81 daily, and Xanax 0.5 twice a day. SOCIAL HISTORY: He is . He used to be a heavy smoker, but quit. He used to abuse drugs, but was on methadone, currently he is on oral narcotics. PHYSICAL EXAMINATION: GENERAL: He is awake, alert, oriented, able to communicate, and short of breath. VITAL SIGNS: He has temperature of 99.3, pulse 92, respirations 18, and blood pressure 93/62. LUNGS: Bilateral diffusely decreased breath sounds. HEART: S1 and S2 audible. ABDOMEN: Soft, obese, and nontender. No rebound. No guarding. EXTREMITIES: Bilateral legs, no edema. NEUROLOGIC: He is awake and alert. Able to communicate. LABORATORY DATA: WBC is 13.6, hemoglobin 12, hematocrit 38, and platelets 191. Chemistry; sodium 137, potassium 4.2, chloride 99, CO2 of 32, BUN 14, creatinine 0.5, and blood sugar of 99. LFTs are within normal limits. Troponin is 0.01. Flu test is negative. X-ray chest, no acute cardiopulmonary abnormality noted. ASSESSMENT: 1. Chronic obstructive pulmonary disease exacerbation. 2. Bronchospasm. 3. History of hypertension. 4. Hyperlipidemia. 5. Constipation secondary to narcotics. 6. Degenerative disk disease. PLAN: We will start the patient on doxycycline and Rocephin. Start him on nebulizer treatment. We will give him steroids. He is on DVT prophylaxis since he has history GI bleed, I will start him on SCDs. We will continue him on Protonix. We will reevaluate the patient in a.m. Ross Bowman MD
[2018-10-06 21:03] LABS: VENOUS BLOOD GAS PO2 63 mm/Hg (30-55); VENOUS BLOOD PH 7.38 (7.32-7.43)
--- NOTE | 2018-10-06 21:13 | CARD ---
APPROVED REPORT Date of service: 10/06/2018 EKG Measurement Heart [id number] <Conclusion> Normal sinus rhythm Left axis deviation Incomplete right bundle branch block Possible Inferior infarct, age undetermined Abnormal ECG
[2018-10-06] MEDS: MethylPREDNISolone 40 mg Vial IV SCH (21:50)
[2018-10-07] MEDS: Levalbuterol 1.25 MG/3 ML Inhal Soln UD IH SCH ×4 (01:21→18:21)
--- NOTE | 2018-10-07 03:29 | CON ---
DATE OF CONSULTATION: 10/06/2018 REFERRING PHYSICIAN: Ross Bowman MD REASON FOR CONSULTATION: Chronic obstructive lung disease, may have sleep apnea syndrome, cardiomyopathy, pulmonary hypertension, morbid obesity. HISTORY OF PRESENT ILLNESS: This is a 58-year-old gentleman, overweight, known history of chronic obstructive lung disease, oxygen dependent, hypertension, cardiomyopathy, decreased LV function, anemia, history of AFib requiring ablation, still having paroxysmal atrial fibrillation. Apparently, last night, woke up in the middle of the night with shortness of breath, claimed to have a fever, brought into ER. Presently sitting side of the bed with cough, shortness of breath. Admits to have snoring, daytime sleepy and tired. No hemoptysis, no hematemesis, no hematuria, no diarrhea reported. PAST MEDICAL HISTORY: As per history of present illness. Also has a history of osteoporosis with vertebral fracture requiring kyphoplasty in the past. Also, he is a diabetic, history of anemia, history of GI bleed in the past. FAMILY HISTORY: No significant cardiopulmonary disease reported. SOCIAL HISTORY: Former smoker. Denies any alcohol use. MEDICATIONS: He is on sotalol 80 mg twice a day, verapamil XR 180 mg daily, Daliresp 500 mcg daily. He is on doxycycline 100 mg twice a day, Ecotrin 81 mg daily, MiraLax 17 g twice a day, oxycodone immediate release 50 mg twice a day p.r.n., also on OxyContin extended release 20 mg twice a day. He is getting potassium 10 mEq daily, Protonix 40 mg daily, Rocephin is 1 g IV daily, Solu-Medrol 40 mg every 12 hours, Tylenol p.r.n. basis, Xanax 0.5 mg twice a day, Xopenex inhaled every 6 hours. ALLERGIES: NONE KNOWN. REVIEW OF SYSTEMS: No headache, no rhinitis. Admits to have snoring, daytime sleepy and tired, short of breath with minimal exertion. No nausea, no vomiting, no diarrhea. Does some leg swelling. PHYSICAL EXAMINATION: GENERAL: Sitting side of the bed, mild distress. VITAL SIGNS: Temperature is 98.9, T-max at home reported 102; heart rate is 94; respiratory rate is 20; blood pressure 108/64; pulse ox 95% on 3 liters nasal cannula. HEENT: Small oral cavity. Edentulous. Mallampati score is four. Short thick neck. LUNGS: Have bilateral crackles and wheezing. Poor airflow. HEART: S1 and S2. ABDOMEN: Soft, obese, nontender. EXTREMITIES: Trace edema. NEUROLOGIC: Awake, alert, follows simple commands. LABORATORY DATA: Hemoglobin 12.0, hematocrit 38.3, WBC 13.6, platelet count 191,000. His INR is 0.93. Has a VBG done, which shows pH 7.37, pCO2 is 54. Sodium 137, potassium 4.2, chloride 99, bicarbonate 32, BUN 14, creatinine 0.5, glucose 99, magnesium 1.7, calcium 9.3, total bili 0.6. Troponin less than 0.01. AST 34, ALT 51, alk phos is 57. Albumin is 4.2. Procalcitonin not available this admission. Influenza A and B negative. Chest x-ray done in the ER shows no active pulmonary disease. Had a CAT scan of the chest done on 08/30/2018, which shows linear atelectasis or fibrosis in the both bases. Bronchial thickening may indicate bronchitis of acute or even chronic type. Has multiple thoracic spinal compression fractures with postcontrast vertebral focal plasty changes present at L1-L2 vertebral body. He has also lumbar vertebroplasty and compression fractures. He also had cardiac workup done last year, which suggested cardiomyopathy and pulmonary hypertension. IMPRESSION: Chronic obstructive lung disease with nonischemic cardiomyopathy, pulmonary hypertension, high risk for sleep apnea syndrome, history of atrial fibrillation requiring ablation and paroxysmal atrial fibrillation, hypertension, diabetes. PLAN: I had a long discussion with the patient about his disease and consequences. At present time, he is on beta-judith, which may not be helping his lung disease, but of course is keeping his heart rate under control. I agree with Dr. Bowman to continue IV and inhaled bronchodilator. Continue antibiotics, gastric prophylaxis, SCD to lower extremities. He definitely needs attended sleep study upon discharge as the outpatient. Nocturnal desaturation and sleep apnea syndrome may be contributing to his nonischemic cardiomyopathy and pulmonary hypertension. At present time, cannot use much pulmonary vasodilator because of marginal blood pressure. We will speak to the patient further if you will allow us to use CPAP/BiPAP while he is in the hospital. Definitely he needs to lose some weight that will help with his cardiopulmonary decompensation. He should also have a full PFT to assess the severity of disease as outpatient. Sleep apnea is one of the important causes of recurrent AFib especially after ablation therapy. Thank you and we will follow with you. Shaila Mercado MD
[2018-10-07] MEDS ORDERED: Levalbuterol 1.25 MG/3 ML Inhal Soln UD IH STA (05:37)
[2018-10-07] MEDS: oxyCODONE 15 mg Immediate Release Tab PO PRN (05:41)
[2018-10-07] MEDS ORDERED: POTASSIUM CHLORIDE 10 MEQ PO SCH (10:00)
[2018-10-07] MEDS ORDERED: Pantoprazole 40 mg EC Tab PO SCH (10:00)
[2018-10-07] MEDS: cefTRIAXone 1 gm 1 GM/100 ML BAG IVPB SCH (10:15)
[2018-10-07] MEDS: MethylPREDNISolone 40 mg Vial IV SCH ×2 (10:15→21:39)
[2018-10-07] MEDS: oxyCODONE 20 mg ER Tab (oxyCONTIN) PO SCH ×2 (10:16→17:40)
[2018-10-07] MEDS: POLYETHYLENE GLYCOL 3350 17 GM/Dose PACKET PO SCH ×2 (10:16→17:40)
[2018-10-07] MEDS: Potassium Chloride 10 mEq ER Tab PO SCH (12:31)
[2018-10-07] MEDS: Verapamil 180 mg ER Tab PO SCH (12:31)
--- NOTE | 2018-10-07 15:44 | PN ---
DATE: 10/07/2018 SUBJECTIVE: The patient has no complaints of any chest pain, no shortness of breath, no headaches. PHYSICAL EXAMINATION: VITAL SIGNS: Temperature of 97.8, pulse of 100, blood pressure is 114/75, and respirations 13. GENERAL: The patient is lying in bed, flat, comfortable. HEENT: No oral lesion. Anicteric sclerae. Moist mucosa. NECK: No JVD, adenopathy, or thyromegaly. CARDIOVASCULAR: S1 and S2, regular. No murmurs, rubs, or gallops. LUNGS: Clear to auscultation bilaterally. No wheeze, rales, or rhonchi. ABDOMEN: Bowel sounds are positive, soft, nontender and nondistended. EXTREMITIES: no cyanosis, clubbing or edema. LABS: White count of 13.6, hemoglobin 12, creatinine is 0.5. ASSESSMENT: 1. Acute chronic obstructive pulmonary disease exacerbation. 2. Hypertension. 3. Dyslipidemia. 4. Constipation. 5. Degenerative joint disease. PLAN: The patient is on Sotalol. He is going to be on roflumilast for the COPD. The patient is on doxycycline for antibiotics. He was given the flu shot. He is on MiraLax for constipation. He has chronic pain and is on his OxyContin and oxycodone. He is going to be on famotidine for his reflux symptoms. He is on steroids for his COPD, this will be continued. He is on Xanax for anxiety. He is going to continue with levalbuterol for his COPD. He is on a heart healthy diet. Will repeat the patient's blood work tomorrow. Johnathon Willoughby MD
--- NOTE | 2018-10-07 16:20 | PN ---
DATE: 10/07/2018 PULMONARY PROGRESS NOTE REFERRING PHYSICIAN: Dr. Ross Bowman. SUBJECTIVE: The patient is seen this morning lying in bed. No acute distress. No overnight events reported. Reports that he still has coughing and shortness of breath with exertion. No headache, rhinitis, chest pain, abdominal pain, nausea, vomiting, diarrhea, leg pain, or leg swelling reported. OBJECTIVE: GENERAL: No acute distress. VITAL SIGNS: Blood pressure 114/76, pulse 108, temperature 97.8, and oxygen saturation 98% on nasal cannula. HEENT: Moist mucous membranes. Mallampati score of 4. No oral cavity. NECK: Short and thick. No JVD. LUNGS: Rhonchi bilaterally; some wheezing. CARDIOVASCULAR: S1 and S2. ABDOMEN: Obese, soft, and nontender. No distention. EXTREMITIES: No bilateral lower extremity edema. NEUROLOGIC: Awake, alert, and verbal. Follows commands. MEDICATIONS: Reviewed. Tylenol 650 every 6 hours p.r.n. for fever greater than 100.4, Xanax 0.5 mg twice a day, aspirin 81 mg daily, Rocephin 1 g daily, doxycycline 100 mg every 12 hours, Pepcid 20 mg daily, Xopenex 1.25 mg every 6 hours, Xopenex 1.25 mg inhalation every 2 hours p.r.n., Solu-Medrol 40 mg every 12 hours, oxycodone 15 mg twice a day p.r.n., oxycodone 20 mg twice a day, MiraLax 17 g twice a day, potassium chloride 10 mEq daily, Daliresp 500 mcg daily, sotalol 80 mg twice a day, and verapamil 180 mg daily. LABORATORY DATA: Reviewed. Blood cultures preliminary no growth after 24 hours. Group A strep culture final, no beta strep group A isolated. IMPRESSION AND PLAN: Chronic obstructive lung disease with nonischemic cardiomyopathy, pulmonary hypertension, history of sleep apnea syndrome, history of atrial fibrillation requiring ablation, paroxysmal atrial fibrillation, hypertension, and diabetes mellitus. Continue IV and nasal bronchodilators. Continue antibiotic therapy, gastric prophylaxis, and sequential compression devices to bilateral lower extremities for deep venous thrombosis prophylaxis. Spoke with the patient today regarding trying continuous positive airway pressure machine while hospitalized; the patient agreed to try continuous positive airway pressure machine. So we will start the patient on continuous positive airway pressure 8 cm with 30% oxygen. We believe that nocturnal desaturation and sleep apnea syndrome may be contributing to the patient's nonischemic cardiomyopathy and pulmonary hypertension. We believe weight loss will help with the patient's cardiopulmonary decompensation as well. We recommend the patient to have full pulmonary function test as outpatient along with sleep study as outpatient. This patient was seen and examined with Dr. Mercado. Discussed assessment and plan as described above. This patient was seen and examined with Andre Johnson, nurse practitioner. Discussed assessment and plan as described above. Thank you for this consult. We will follow with you. Andre Johnson APN Shaila Mercado MD LEANDRA
[2018-10-08] MEDS: Levalbuterol 1.25 MG/3 ML Inhal Soln UD IH SCH ×4 (01:16→20:07)
[2018-10-08] MEDS: Levalbuterol 1.25 MG/3 ML Inhal Soln UD IH PRN ×2 (04:19→10:51)
[2018-10-08] MEDS: Potassium Chloride 10 mEq ER Tab PO SCH (07:10)
[2018-10-08 07:13] LABS: HEMOGLOBIN 10.5 g/dL (14.0-18.0); MEAN CELL VOLUME 89.5 fl (80.0-105.0); MEAN CORPUSCULAR HGB CONC 30.2 g/dl (31.0-37.0); MEAN PLATELET VOLUME 9.5 fl (7.0-11.0); RBC 3.89 10^6/uL (3.5-6.1); RED CELL DISTRIBUTION WIDTH 15.8 % (11.5-14.5); WHITE BLOOD COUNT 9.8 10^3/uL (4.5-11.0)
[2018-10-08 07:28] LABS: ALB/GLOB RATIO 1.3 (1.1-1.8); ALBUMIN 3.7 g/dL (3.0-4.8); ALT/SGPT 42 U/L (7-56); AST/SGOT 34 U/L (17-59); BLOOD UREA NITROGEN 13 mg/dL (7-21); CALCIUM 9.2 mg/dL (8.4-10.5); GFR NON-AFRICAN AMERICAN > 60
[2018-10-08] MEDS: POLYETHYLENE GLYCOL 3350 17 GM/Dose PACKET PO SCH ×2 (09:21→17:03)
[2018-10-08] MEDS: MethylPREDNISolone 40 mg Vial IV SCH ×4 (09:21→21:55)
[2018-10-08] MEDS: oxyCODONE 20 mg ER Tab (oxyCONTIN) PO SCH ×2 (09:22→17:02)
[2018-10-08] MEDS: cefTRIAXone 1 gm 1 GM/100 ML BAG IVPB SCH (09:22)
[2018-10-08] MEDS: Verapamil 180 mg ER Tab PO SCH (09:23)
--- NOTE | 2018-10-08 13:01 | CP.PCM.PCO ---
Physician Communication Note - Physician Communication Note Physician Communication Note: COPD exacerbation solumedrol increased to 40mg q6H, reeval in am
--- NOTE | 2018-10-08 14:37 | PN ---
DATE: 10/08/2018 PULMONARY PROGRESS NOTE REFERRING PHYSICIAN: Dr. Ross Bowman. SUBJECTIVE: The patient is seen lying in bed, head of bed elevated, BiPAP in place at this time. The patient reports that during ____ he is feeling much better, but earlier this morning, the patient was having shortness of breath, oxygen saturation via nasal cannula per nursing staff was 88%. The patient was given breathing treatment. Oxygen saturation increased to 94%, but the patient kept complaining of difficulty breathing, shortness of breath. The patient placed on BiPAP. Solu-Medrol was increased, Lasix was added and the patient started to become more stable. At this time, he reports that shortness of breath has improved. No headache, rhinitis, chest pain, abdominal pain, nausea, vomiting, diarrhea, leg pain, or leg swelling reported. OBJECTIVE: VITAL SIGNS: Blood pressure 111/64, pulse 75, temperature 97.8, and oxygen saturation 93% on BiPAP. GENERAL: No acute distress. HEENT: Moist mucous membranes. Mallampati score of 4. Small oral cavity. NECK: No JVD. Short and thick. RESPIRATORY: Rhonchi bilaterally; some audible wheezing. CARDIOVASCULAR: S1 and S2. ABDOMEN: Obese, soft, and nontender. No distention. EXTREMITIES: No bilateral lower extremity edema. NEUROLOGIC: Awake, alert, and verbal. Follows commands. MEDICATIONS: Reviewed. Tylenol 650 every 6 hours p.r.n. for fever greater than 100.4, Xanax 0.5 mg twice a day, aspirin 81 mg daily, Rocephin 1 g daily, doxycycline 100 mg every 12 hours, Pepcid 20 mg daily, Lasix 40 mg daily, Xopenex 1.25 mg every 6 hours, Xopenex 1.25 mg every 2 hours p.r.n., Solu-Medrol 40 mg every 6 hours, oxycodone 15 mg twice a day p.r.n., oxycodone 20 mg p.o. twice a day, MiraLax 17 g twice a day, potassium chloride 10 mEq at breakfast, Daliresp 500 mcg daily, sotalol 80 mg twice a day, spironolactone 25 mg daily, and verapamil 180 mg daily. LABORATORY DATA: Sodium 139, potassium 4.7, chloride 99, carbon dioxide 36, anion gap 8, BUN 13, creatinine 0.5, GFR greater than 60, random glucose 135, calcium 9.2, total bilirubin 0.2, AST 34, ALT 42, alkaline phosphatase 54, total protein 6.6, albumin Procalcitonin 0.1. Blood cultures preliminary. no growth after 24 hours. IMPRESSION AND PLAN: Chronic obstructive lung disease with nonischemic cardiomyopathy, pulmonary hypertension, history of sleep apnea syndrome, history of atrial fibrillation requiring ablation, paroxysmal atrial fibrillation, hypertension, diabetes mellitus. Continue IV and inhaled bronchodilators, antibiotic therapy, gastric prophylaxis, sequential compression devices for deep venous thrombosis prophylaxis. We will discontinue CPAP and order BiPAP 15 over 8 cm for patient to use at bedtime and as needed. We will order ABGs in the morning, need to monitor the patient's blood pressure closely. We recommend this patient to have full pulmonary function test and sleep study as outpatient. This patient was seen and examined with Dr. Mercado. Discussed assessment and plan as described above. This patient was seen and examined by Andre Johnson, nurse practitioner. Discussed assessment and plan as described above. Thank you for this consult. We will follow with you. Andre Johnson APN Shaila Mercado MD
--- NOTE | 2018-10-08 15:53 | PN ---
DATE: 10/08/2018 SUBJECTIVE: The patient is a 58-year-old, still have sometimes shortness of breath, currently on BiPAP. Denies any nausea or vomiting. PHYSICAL EXAMINATION VITAL SIGNS: He is afebrile, pulse 75, respirations 18, blood pressure 121/64. LUNGS: Bilateral diffusely decreased breath sounds. Poor airflow. HEART: S1 and S2 audible. Regular rate and rhythm. ABDOMEN: Soft, obese, nontender. No rebound, no guarding. NEUROLOGICAL: He is awake, alert, oriented, able to communicate. LABORATORY DATA: WBC 9.8, hemoglobin 10.5, hematocrit 34.8, platelet of 190. Chemistry; sodium 139, potassium 4.7, chloride 99, CO2 of 36, BUN 13, creatinine 0.5, blood sugar of 135. Blood culture and urine cultures are negative. ASSESSMENT: 1. Chronic obstructive pulmonary disease exacerbation. 2. Non-ischemic cardiomyopathy. 3. History of hypertension, currently running hypotensive. 4. History of pulmonary hypertension. 5. History of atrial fibrillation, end up having ablation procedure. Currently, running sinus rhythm. 6. Severe osteoporosis, status post multiple compression fractures and kyphoplasty. 7. Chronic degenerative disk disease and chronic low back pain. PLAN: We will start the patient on Lasix, start him on spironolactone. Follow up diuretic. The patient states he is very frustrated with situation. 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 In the meantime, we will continue him doxycycline, continue Lasix, analgesic as needed. Continue him on Rocephin and steroids. We will follow up patient in a.m. Ross Bowman MD
[2018-10-08] MEDS: oxyCODONE 15 mg Immediate Release Tab PO PRN (21:56)
[2018-10-09] MEDS: Levalbuterol 1.25 MG/3 ML Inhal Soln UD IH SCH ×4 (01:33→19:52)
[2018-10-09 05:30] LABS: ARTERIAL BLOOD GAS HCO3 40.3 mmol/L (21-28); ARTERIAL BLOOD GAS HEMOGLOBIN 10.8 g/dL (11.7-17.4); ARTERIAL BLOOD GAS O2 CONTENT 14.5 ML/dl (15-23); ARTERIAL BLOOD GAS O2 SAT 96.5 % (95-98); ARTERIAL BLOOD GAS PCO2 73 mm/Hg (35-45); ARTERIAL BLOOD GAS PH 7.35 (7.35-7.45); ARTERIAL BLOOD GAS TCO2 42.5 mmol.L (22-28)
[2018-10-09] MEDS: MethylPREDNISolone 40 mg Vial IV SCH ×4 (05:40→21:54)
[2018-10-09 07:19] LABS: BASO # 0.01 K/mm3 (0.0-2.0); BASO % 0.1 % (0.0-3.0); HEMOGLOBIN 10.6 g/dL (14.0-18.0); LYMPH # 0.4 (1.2-3.4); LYMPH % 5.2 % (22.0-35.0); MEAN CELL VOLUME 89.4 fl (80.0-105.0); MEAN CORPUSCULAR HEMOGLOBIN 26.7 pg (25.0-35.0); MEAN CORPUSCULAR HGB CONC 29.9 g/dl (31.0-37.0); MEAN PLATELET VOLUME 9.5 fl (7.0-11.0); MONO # 0.4 (0.1-0.6); MONO % 4.8 % (1.0-6.0); RBC 3.97 10^6/uL (3.5-6.1); RED CELL DISTRIBUTION WIDTH 15.6 % (11.5-14.5); WHITE BLOOD COUNT 8.3 10^3/uL (4.5-11.0)
[2018-10-09 07:42] LABS: ALB/GLOB RATIO 1.3 (1.1-1.8); ALBUMIN 3.7 g/dL (3.0-4.8); ALT/SGPT 43 U/L (7-56); AST/SGOT 40 U/L (17-59); BLOOD UREA NITROGEN 24 mg/dL (7-21); CALCIUM 9.2 mg/dL (8.4-10.5); GFR NON-AFRICAN AMERICAN > 60
[2018-10-09] MEDS: POLYETHYLENE GLYCOL 3350 17 GM/Dose PACKET PO SCH ×2 (10:36→18:41)
[2018-10-09] MEDS: Potassium Chloride 10 mEq ER Tab PO SCH (10:36)
[2018-10-09] MEDS: Verapamil 180 mg ER Tab PO SCH (10:36)
[2018-10-09] MEDS: oxyCODONE 20 mg ER Tab (oxyCONTIN) PO SCH ×2 (10:36→18:37)
[2018-10-09] MEDS: Cefpodoxime (Vantin) 200 mg Tab PO SCH ×2 (10:42→21:55)
--- NOTE | 2018-10-09 11:58 | PN ---
DATE: 10/09/2018 PULMONARY PROGRESS NOTE REFERRING PHYSICIAN: Ross Bowman MD. SUBJECTIVE: The patient is seen lying in bed, head of bed elevated. Family at bedside, high-flow oxygen in place FiO2 of 50 on 50 liters. Nursing staff reports that the patient was placed on nasal cannula and ambulated to the bathroom, pulse ox noted as 77 on 3 liters. The patient placed back in bed, placed on high-flow oxygen and is sating 97% at this time. The patient reports feeling a little bit better, still has periods of shortness of breath, did not use BiPAP machine last night was on a high-flow all night. No headache, rhinitis, chest pain, abdominal pain, nausea, vomiting, diarrhea, leg pain, or leg swelling reported. OBJECTIVE: GENERAL: No acute distress. VITAL SIGNS: Blood pressure 107/69, pulse 70, temperature 98.1, and oxygen saturation 98% on high-flow. HEENT: Moist mucous membranes. Mallampati score of 4. Small oral cavity. NECK: No JVD. Short and thick. RESPIRATORY: Rhonchi bilaterally; some audible wheezing. CARDIOVASCULAR: S1 and S2. ABDOMEN: Soft, and nontender. No distention. No organomegaly. EXTREMITIES: Trace bilateral lower extremity edema. NEUROLOGIC: Awake, alert, and verbal. Follows commands. MEDICATIONS: Reviewed. Tylenol 650 mg every 6 hours p.r.n. for fever greater than 100.4, Xanax 0.5 mg twice a day, aspirin 81 mg daily, Vantin 200 mg every 12 hours, doxycycline 100 mg every 12 hours, Pepcid 20 mg daily, Lasix 40 mg IV push daily, Xopenex 1.25 mg every 6 hours, Xopenex 1.25 mg every 2 hours p.r.n., Solu-Medrol 40 mg every 6 hours, oxycodone 15 mg twice a day p.r.n., OxyContin twice a day, MiraLax 17 g twice a day, potassium chloride 10 mEq at breakfast, Daliresp 500 mcg daily, sotalol 80 mg twice a day, spironolactone 25 mg daily, and verapamil 180 mg daily. LABORATORY DATA: Reviewed. WBC is 8.3, RBC 3.97, hemoglobin 10.6, hematocrit 35.5, and platelets 188. PCO2 of 73, pO2 82, ABG; pH 7.35, FiO2 of 50. Sodium 137, potassium 4.3, chloride 95, carbon dioxide 40, anion gap 6, BUN 24, creatinine 0.5, GFR greater than 60, random glucose 145, calcium 9.2, magnesium 2.1, total bilirubin 0.3, AST 40, ALT 43, alkaline phosphatase 50, total protein 6.5, albumin 3.7, globulin 2.8, albumin-globulin ratio 1.3. Blood cultures preliminary no growth after 48 hours. IMPRESSION AND PLAN: Chronic obstructive lung disease with nonischemic cardiomyopathy, pulmonary hypertension, history of sleep apnea syndrome, history of atrial fibrillation requiring ablation, hypertension, paroxysmal atrial fibrillation, diabetes mellitus. Continue IV and inhaled bronchodilators, antibiotic therapy, gastric prophylaxis, sequential compression devices for deep venous thrombosis prophylaxis. Pending echocardiogram to be done. We will decide on adding vasodilator after echocardiogram report is available. Continue high-flow oxygen. Continue noninvasive ventilation at this time. We will order ABG, chest x-ray, CBC, CMP in the morning. We recommend the patient has full pulmonary function test and sleep study as outpatient. This patient was seen and examined with Dr. Mercado. Discussed assessment and plan as described above. This patient was seen and examined by Andre Johnson, nurse practitioner. Discussed assessment and plan as described above. Thank you for this consult. We will follow with you. Andre Johnson APN Shaila Mercado MD
--- NOTE | 2018-10-09 13:23 | CP.PCM.PCO ---
Physician Communication Note - Physician Communication Note Physician Communication Note: COPD, CHF, Pulm HTN, continue solumedrol, bipap, high flow, lasix
--- NOTE | 2018-10-09 13:56 | PN ---
DATE: 10/09/2018 SUBJECTIVE: The patient is 58 years old, still on BiPAP, went to bathroom and desaturated up to 86%. He is on high dose IV steroid. He is getting nebulizer treatment. He is on IV diuretic. No complaint of back pain. Had bowel movement yesterday. No nausea or vomiting. Eating fair. PHYSICAL EXAMINATION: VITAL SIGNS: He is afebrile. Pulse 79, respirations 20, blood pressure 116/79. LUNGS: Bilateral diffusely decreased breath sounds. Occasional soft crackle at bases. HEART: S1, S2 audible. ABDOMEN: Soft, obese, nontender, no rebound, no guarding. NEUROLOGIC: He is awake and alert. Able to communicate. LABORATORY DATA: WBC 8.3, hemoglobin 10.6, hematocrit 35.5, platelets 188. Chemistry; sodium 137, potassium 4.3, chloride 95, CO2 of 40, BUN 24, creatinine 0.5, blood sugar of 146. Flu test is negative. ASSESSMENT: 1. Chronic obstructive pulmonary disease exacerbation. 2. Mild congestive heart failure. 3. Nonischemic cardiomyopathy. 4. Degenerative disc disease status post compression fracture of vertebrae, status post multiple kyphoplasties. 5. 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 PLAN: Currently, the patient is on IV steroid, on IV antibiotic. He is on BiPAP. He has severe exertional dyspnea and desaturation. We will continue him on Daliresp, verapamil 180 daily, sotalol 80 mg twice a day, spironolactone 25 daily, doxycycline 100 mg twice a day, he is on aspirin 81 daily. We will leave his narcotic that he uses for back pain. Continue telemetry monitoring. I will request Dr. Samuel to follow him from Cardiology point of view. Ross Bowman MD
--- NOTE | 2018-10-09 18:49 | CARD ---
APPROVED REPORT Date of service: 10/09/2018 EXAM: Two-dimensional and M-mode echocardiogram with Doppler and color Doppler. INDICATION Dyspnea Pulmonary Hypertention COPD 2D DIMENSIONS IVSd1.1 (0.7-1.1cm)LVDd5.4 (3.9-5.9cm) PWd1.1 (0.7-1.1cm) M-Mode DIMENSIONS Aortic Root3.40 (2.2-3.7cm)Aortic Cusp Exc.2.00 (1.5-2.0cm) Aortic Valve AoV Peak Wgghjivk08.0cm/Christin Peak GR.4mmHg Mitral Valve E/A ratio0.0 TDI E/Lateral E'0.0E/Medial E'0.0 Pulmonary Valve PV Peak Zhqvzvvw49.6cm/sPV Peak Grad.2mmHg Tricuspid Valve TR Peak [id number] [id number] Peak Gr.22mmHg [id number] LEFT VENTRICLE The left ventricle is normal size. There is normal left ventricular wall thickness. The left ventricular function is normal.EF-55% There is normal LV segmental wall motion. Transmitral Doppler flow pattern is Grade II-pseudonormal filling dynamics. No left ventricle thrombus noted on this study. There is no ventricular septal defect visualized. There is no left ventricular aneurysm. There is no mass noted in the left ventricle. RIGHT VENTRICLE The right ventricle is mildly to moderately dilated. There is normal right ventricular wall thickness. Systolic function is mildly to moderately reduced. ATRIA The left atrium size is normal. The right atrium is borderline dilated. The interatrial septum is intact with no evidence for an atrial septal defect. AORTIC VALVE The aortic valve is thickened but opens well. No aortic regurgitation is present. There is no aortic valvular stenosis. There is no aortic valvular vegetation. MITRAL VALVE The mitral valve is thickened but opens well. Mitral regurgitation is trace. There is no mitral valve stenosis. There is no evidence of mitral valve prolapse. TRICUSPID VALVE The tricuspid valve leaflets are thickened , but open well. There is trace tricuspid regurgitation.RVSP-32 mmof Hg. There is no tricuspid valve stenosis. There is no tricuspid valve prolapse or vegetation. PULMONIC VALVE The pulmonary valve is normal in structure. Trivial PI There is no pulmonic valvular stenosis. GREAT VESSELS The aortic root is normal in size. The ascending aorta is normal in size. The pulmonary artery is normal. The IVC is normal in size and collapses >50% with inspiration. PERICARDIAL EFFUSION There is no pleural effusion. Trivial PE <Conclusion> The left ventricle is normal size. The left ventricular function is normal.EF-55% Mitral regurgitation is trace. There is trace tricuspid regurgitation.RVSP-32 mmof Hg. The IVC is normal in size and collapses >50% with inspiration. Trivial PE TDS, Poor Sonic window.
--- NOTE | 2018-10-09 19:42 | CON ---
DATE: 10/09/2018 CONSULT SERVICE: Cardiology. REASON FOR THE CONSULTATION: Rule out CHF, admitted with shortness of breath, history of COPD. BRIEF CLINICAL HISTORY: This is a 58-year-old male with past medical history significant for COPD, history of chronic back pain, history of atrial fibrillation paroxysmal, status post radiofrequency ablation; history of cardiomyopathy, recovered, came to the emergency room after having low oxygen saturation, shortness of breath. The patient was initially admitted on 10/06/2018. Now the beverage sales consultant was called to rule out congestive heart failure because of the shortness of breath. The patient denies any chest pain, denies any palpitation. PAST MEDICAL HISTORY: Significant for COPD, history of atrial fibrillation, status post radiofrequency ablation in 06/2017, history of cardiac catheterization that shows nonobstructive coronary artery disease, history of non-STEMI in the past. Later on the patient's LV function improved. History of chronic back pain, history of kyphoplasty in the past, history of GI bleed. The patient was off anticoagulation because of massive GI bleed in the past. PREVIOUS CARDIAC WORKUP: As follows; the patient had a cardiac catheterization in 11/2013 that shows essentially normal coronary cardiomyopathy. Later on patient had a MUGA scan done that shows significantly improved ejection fraction of 54%. The patient had a radiofrequency ablation by Dr. Amador at [facility] because of recurrent paroxysmal atrial fibrillation and then the patient remained fairly stable. History of massive GI bleed and was off anticoagulation. Last echo the patient had in [facility] on 09/08/[address] Garg, which shows systolic function borderline, RV systolic function moderately reduced, mild tricuspid regurgitation, [id number] pulmonary hypertension, ejection fraction 48%, RV systolic pressure 48. SOCIAL HISTORY: Denies any smoking. Denies any history of alcohol abuse. CURRENT MEDICATIONS AT HOME: The patient was taking Sotalol 80 mg twice a day, prednisone 5 mg daily, oxycodone, verapamil 180 mg daily, Daliresp 5000 mcg daily, potassium chloride daily, Lasix 20 mg daily, oxycodone 20 mg daily, vitamin D, aspirin, and Xanax. REVIEW OF SYSTEMS: As per HPI. PHYSICAL EXAMINATION GENERAL: Height of the patient 5 feet 8 inches. Weight of the patient 178 pounds. Body mass index 27.1 kg/m2. VITAL SIGNS: Temperature afebrile, heart rate 78, blood pressure 106/79. HEENT: PERRLA. Extraocular muscles intact. NECK: Supple. No carotid bruit or thyromegaly. CHEST: Clear to auscultation. HEART: S1 and S2 regular. ABDOMEN: Soft. EXTREMITIES: Clubbing and cyanosis, negative. LABORATORY DATA: Blood workup; WBC 8.3, hemoglobin 10.6, hematocrit 35.5, platelet count 188. Chemistry shows sodium 137, potassium 4.3, chloride 95, carbon dioxide 40, anion gap of 6, BUN 24, creatinine 0.5. EKG showed on admission normal sinus, left axis deviation, incomplete right bundle branch block. Telemetry shows normal sinus tachycardia. IMPRESSION: A 58-year-old male with past medical history significant for chronic obstructive pulmonary disease, cardiomyopathy, nonischemic status post cardiac catheterization on 2013, nonobstructive coronary artery disease, history of pulmonary hypertension, history of mitral regurgitation, history of tricuspid regurgitation, history of non-ischemic cardiomyopathy later on improved. MUGA scan shows ejection fraction preserved at 54%, admitted with acute exacerbation of chronic obstructive pulmonary disease. Admitting BNP was 117. Chest x-ray on admission did not show any evidence of fluid pulmonary edema, but cannot rule out mild congestion though it is a poor inspiratory effort, history of atrial fibrillation, paroxysmal status post radiofrequency ablation, off anticoagulation because of massive gastrointestinal bleed, history of back pain status post kyphoplasty. Extremely doubt it is congestive heart failure, because BNP was normal and not much x-ray finding, but given the fact of the chronic obstructive pulmonary disease it was suggested to get an echocardiograph to assess left ventricular function, mitral regurgitation, tricuspid regurgitation. Last echocardiograph was in 08/2017. We will get lipid profile to see hemoglobin A1c. Keep intravenous Lasix to keep negative fluid balance. Continue sotalol, continue verapamil as blood pressure is tolerated. Discussed with the patient, discussed with the patient's . We will follow with you. Thank you, Dr. Bowman, for providing us the opportunity in taking care of the [facility]. Shaila Samuel MD
[2018-10-09] MEDS ORDERED: diltiaZEM IVPB 100mg in NS 100 ML IV SCH (20:00)
[2018-10-09 21:41] LABS: B-TYPE NATRIURETIC PEPTIDE 152 pg/mL (0-450); TROPONIN I < 0.01 ng/mL
--- NOTE | 2018-10-09 21:41 | CP.PCM.PN ---
<LandonAiden - Last Filed: 10/09/18 22:02> Subjective - Date & Time of Evaluation Date of Evaluation: 10/09/18 Time of Evaluation: 21:40 - Subjective Subjective: House staff paged regarding new episode of AFib w/RVR. Prior records were reviewed. Patient has a history of AFib and was on anticoagulation previously but has a history of GIB and is now on ASA alone. Dr. Bowman and Dr. Samuel have been following. Case was discussed with Dr. Samuel who requests patient be placed on diltiazem drip. Patient seen and examined, will continue diltiazem drip. Informed nursing staff to continue to monitor and notify of any changes. Objective - Vital Signs/Intake and Output Vital Signs (last 24 hours): Temp Pulse Resp BP Pulse Ox 97.6 F 131 H 20 123/84 98 10/09/18 18:00 10/09/18 20:35 10/09/18 20:39 10/09/18 20:35 10/09/18 06:00 Intake and Output: 10/09/18 10/10/18 18:59 06:59 Intake Total 840 Output Total 800 Balance 40 - Medications Medications: Current Medications Acetaminophen (Tylenol 325mg Tab) 650 mg PO Q6H PRN PRN Reason: Fever >100.4 F Last Admin: 10/06/18 22:49 Dose: 650 mg Alprazolam (Xanax) 0.5 mg PO BID [facility]; Protocol Last Admin: 10/09/18 18:41 Dose: 0.5 mg Aspirin (Ecotrin) 81 mg PO DAILY [facility] Last Admin: 10/09/18 10:35 Dose: 81 mg Cefpodoxime Proxetil (Vantin) 200 mg PO Q12 ERNESTINA Last Admin: 10/09/18 10:42 Dose: 200 mg Doxycycline Hyclate (Doryx) 100 mg PO Q12 [facility] Last Admin: 10/09/18 10:34 Dose: 100 mg Famotidine (Pepcid) 20 mg PO DAILY [facility] Last Admin: 10/09/18 10:35 Dose: 20 mg Furosemide (Lasix) 40 mg IVP DAILY [facility] Last Admin: 10/09/18 10:36 Dose: 40 mg diltiaZEM IVPB 100mg in NS (Cardizem 100mg In Ns) 100 mls @ 5 mls/hr IV .Q20H [facility] Last Admin: 10/09/18 20:06 Dose: 5 mls/hr Levalbuterol HCl (Xopenex) 1.25 mg IH [id number] [facility] Last Admin: 10/09/18 19:52 Dose: 1.25 mg Levalbuterol HCl (Xopenex) 1.25 mg IH Q2 PRN PRN Reason: Shortness of Breath Last Admin: 10/08/18 10:51 Dose: 1.25 mg Methylprednisolone (Solu-Medrol) 40 mg IV Q6H [facility] Last Admin: 10/09/18 18:36 Dose: 40 mg Oxycodone HCl (Oxycontin Extended Release Tab) 20 mg PO BID [facility] Last Admin: 10/09/18 18:37 Dose: 20 mg Oxycodone HCl (Oxycodone Immediate Release Tab) 15 mg PO BID PRN PRN Reason: Pain, moderate (4-7) Last Admin: 10/08/18 21:56 Dose: 15 mg Polyethylene Glycol (Miralax) 17 gm PO BID [facility] Last Admin: 10/09/18 18:41 Dose: Not Given Roflumilast (Daliresp) 500 mcg PO DAILY [facility] Last Admin: 10/09/18 10:35 Dose: 500 mcg Sotalol HCl (Betapace) 80 mg PO BID [facility] Last Admin: 10/09/18 18:47 Dose: 80 mg Spironolactone (Aldactone) 25 mg PO DAILY [facility] Last Admin: 10/09/18 10:35 Dose: 25 mg Verapamil HCl (Calan Sr Tab) 180 mg PO DAILY [facility] Last Admin: 10/09/18 10:36 Dose: 180 mg - Labs Labs: 10/09/18 06:30 10/09/18 06:30 PT 10.5 SECONDS (9.4-12.5) 10/06/18 12:34 INR 0.93 10/06/18 12:34 APTT 25.4 Seconds (26.9-38.3) L 10/06/18 12:34 <Paula Collazo - Last Filed: 10/10/18 01:56> Objective - Vital Signs/Intake and Output Vital Signs (last 24 hours): Temp Pulse Resp BP Pulse Ox 97.8 F 112 H 20 105/73 91 L 10/10/18 00:01 10/10/18 00:01 10/10/18 00:01 10/10/18 00:01 10/10/18 00:01 Intake and Output: 10/09/18 10/10/18 18:59 06:59 Intake Total 840 Output Total 800 Balance 40 - Medications Medications: Current Medications Acetaminophen (Tylenol 325mg Tab) 650 mg PO Q6H PRN PRN Reason: Fever >100.4 F Last Admin: 10/06/18 22:49 Dose: 650 mg Alprazolam (Xanax) 0.5 mg PO BID [facility]; Protocol Last Admin: 10/09/18 18:41 Dose: 0.5 mg Aspirin (Ecotrin) 81 mg PO DAILY [facility] Last Admin: 10/09/18 10:35 Dose: 81 mg Cefpodoxime Proxetil (Vantin) 200 mg PO Q12 [facility] Last Admin: 10/09/18 21:55 Dose: 200 mg Doxycycline Hyclate (Doryx) 100 mg PO Q12 [facility] Last Admin: 10/09/18 21:55 Dose: 100 mg Famotidine (Pepcid) 20 mg PO DAILY [facility] Last Admin: 10/09/18 10:35 Dose: 20 mg Furosemide (Lasix) 40 mg IVP DAILY [facility] Last Admin: 10/09/18 10:36 Dose: 40 mg diltiaZEM IVPB 100mg in NS (Cardizem 100mg In Ns) 100 mls @ 5 mls/hr IV .Q20H [facility] Last Admin: 10/09/18 20:06 Dose: 5 mls/hr Levalbuterol HCl (Xopenex) 1.25 mg IH [id number] [facility] Last Admin: 10/09/18 19:52 Dose: 1.25 mg Levalbuterol HCl (Xopenex) 1.25 mg IH Q2 PRN PRN Reason: Shortness of Breath Last Admin: 10/08/18 10:51 Dose: 1.25 mg Methylprednisolone (Solu-Medrol) 40 mg IV Q6H [facility] Last Admin: 10/09/18 21:54 Dose: 40 mg Oxycodone HCl (Oxycontin Extended Release Tab) 20 mg PO BID [facility] Last Admin: 10/09/18 18:37 Dose: 20 mg Oxycodone HCl (Oxycodone Immediate Release Tab) 15 mg PO BID PRN PRN Reason: Pain, moderate (4-7) Last Admin: 10/09/18 21:55 Dose: 15 mg Polyethylene Glycol (Miralax) 17 gm PO BID [facility] Last Admin: 10/09/18 18:41 Dose: Not Given Roflumilast (Daliresp) 500 mcg PO DAILY [facility] Last Admin: 10/09/18 10:35 Dose: 500 mcg Sotalol HCl (Betapace) 80 mg PO BID [facility] Last Admin: 10/09/18 18:47 Dose: 80 mg Spironolactone (Aldactone) 25 mg PO DAILY [facility] Last Admin: 10/09/18 10:35 Dose: 25 mg Verapamil HCl (Calan Sr Tab) 180 mg PO DAILY [facility] Last Admin: 10/09/18 10:36 Dose: 180 mg - Labs Labs: 10/09/18 06:30 10/09/18 06:30 PT 10.5 SECONDS (9.4-12.5) 10/06/18 12:34 INR 0.93 10/06/18 12:34 APTT 25.4 Seconds (26.9-38.3) L 10/06/18 12:34 Attending/Attestation - Attestation I have personally seen and examined this patient.: Yes I have fully participated in the care of the patient.: Yes I have reviewed all pertinent clinical information, including history, physical exam and plan: Yes Notes (Text): 10/10/18 01:04 Addendum: Pt was seen by me in response to a stat call from his RN after he was noted to be in Afib With RVR, His Bp was in the 130s,he was on high ryanne O2 ,was c/o a little chest tightness and not feeling good. No c/o nausea,vomiting,abdominal pain,calf pain or any other symptoms O/E he was alert, awake ,oriented x3 No JVD Lungs:bibasilar crepts+ Cor:S1S2 irregular,tachycardic Abd soft Ext:No cyanosis,clubbing or edema.No calf tenderness. Skin :warm and dry Imp: Afib with RVR Plan: pt was given 10 mg Cardizem bolus.The dipped a little then went back to the 130s. Cardizem drip was started @ 5mg/hr.since the rate remin the 130s,he was given an additional bolus of 10 mg cardizem with some improvement. At this point the resident contacted Dr Samuel who agreed with the management so far. 10/10/18 01:54
[2018-10-09] MEDS: oxyCODONE 15 mg Immediate Release Tab PO PRN (21:55)
[2018-10-10] MEDS ORDERED: Digoxin 500 mcg/2ml (0.5 mg/2ml) Inj IVP ONE (01:34)
[2018-10-10] MEDS: Levalbuterol 1.25 MG/3 ML Inhal Soln UD IH SCH ×4 (01:34→20:04)
[2018-10-10 01:47] VITALS: PULSE 141
[2018-10-10] MEDS: MethylPREDNISolone 40 mg Vial IV SCH ×4 (05:21→22:36)
[2018-10-10 05:47] LABS: ARTERIAL BLOOD GAS HCO3 38.7 mmol/L (21-28); ARTERIAL BLOOD GAS O2 CAPACITY 15.2 mL/dl (16-24); ARTERIAL BLOOD GAS O2 CONTENT 14.2 ML/dl (15-23); ARTERIAL BLOOD GAS O2 SAT 93.4 % (95-98); ARTERIAL BLOOD GAS PCO2 61 mm/Hg (35-45); ARTERIAL BLOOD GAS PH 7.41 (7.35-7.45); ARTERIAL BLOOD GAS TCO2 40.6 mmol.L (22-28)
[2018-10-10 06:31] LABS: BASO # 0.02 K/mm3 (0.0-2.0); BASO % 0.2 % (0.0-3.0); HEMOGLOBIN 11.3 g/dL (14.0-18.0); LYMPH # 0.5 (1.2-3.4); LYMPH % 5.4 % (22.0-35.0); MEAN CORPUSCULAR HEMOGLOBIN 27.6 pg (25.0-35.0); MEAN CORPUSCULAR HGB CONC 30.7 g/dl (31.0-37.0); MEAN PLATELET VOLUME 9.6 fl (7.0-11.0); MONO # 0.4 (0.1-0.6); MONO % 3.9 % (1.0-6.0); PLATELET COUNT 212 10^3/uL (120.0-450.0); RBC 4.09 10^6/uL (3.5-6.1); RED CELL DISTRIBUTION WIDTH 15.3 % (11.5-14.5); WHITE BLOOD COUNT 9.9 10^3/uL (4.5-11.0)
[2018-10-10 06:55] LABS: ALB/GLOB RATIO 1.3 (1.1-1.8); ALBUMIN 3.6 g/dL (3.0-4.8); ALT/SGPT 45 U/L (7-56); AST/SGOT 36 U/L (17-59); BLOOD UREA NITROGEN 35 mg/dL (7-21); GFR NON-AFRICAN AMERICAN > 60; HDL CHOLESTEROL 55 mg/dL (29-60)
[2018-10-10 07:00] LABS: LDL CHOLESTEROL 84 mg/dL (0-129)
--- NOTE | 2018-10-10 08:15 | CP.PCM.PN ---
Subjective - Date & Time of Evaluation Date of Evaluation: 10/10/18 Time of Evaluation: 06:55 - Subjective Subjective: Awake, BIPAP in use, no distress Reason for consultation and follow up:Cardiac evaluation of shortness of breath, ruled out exacerbation of CHF, history of chronic COPD Seen and examined by me and Dr. Samuel Objective - Vital Signs/Intake and Output Vital Signs (last 24 hours): Temp Pulse Resp BP Pulse Ox 97.6 F 67 18 111/70 94 L 10/10/18 06:00 10/10/18 06:00 10/10/18 06:00 10/10/18 06:00 10/10/18 06:00 Intake and Output: 10/10/18 10/10/18 06:59 18:59 Intake Total 160 Output Total 350 Balance -190 - Medications Medications: Current Medications Acetaminophen (Tylenol 325mg Tab) 650 mg PO Q6H PRN PRN Reason: Fever >100.4 F Last Admin: 10/06/18 22:49 Dose: 650 mg Alprazolam (Xanax) 0.5 mg PO BID [facility]; Protocol Last Admin: 10/09/18 18:41 Dose: 0.5 mg Aspirin (Ecotrin) 81 mg PO DAILY [facility] Last Admin: 10/09/18 10:35 Dose: 81 mg Cefpodoxime Proxetil (Vantin) 200 mg PO Q12 [facility] Last Admin: 10/09/18 21:55 Dose: 200 mg Doxycycline Hyclate (Doryx) 100 mg PO Q12 [facility] Last Admin: 10/09/18 21:55 Dose: 100 mg Famotidine (Pepcid) 20 mg PO DAILY [facility] Last Admin: 10/09/18 10:35 Dose: 20 mg Furosemide (Lasix) 40 mg IVP DAILY [facility] Last Admin: 10/09/18 10:36 Dose: 40 mg Levalbuterol HCl (Xopenex) 1.25 mg IH [id number] [facility] Last Admin: 10/10/18 01:34 Dose: 1.25 mg Levalbuterol HCl (Xopenex) 1.25 mg IH Q2 PRN PRN Reason: Shortness of Breath Last Admin: 10/08/18 10:51 Dose: 1.25 mg Methylprednisolone (Solu-Medrol) 40 mg IV Q6H [facility] Last Admin: 03/13/19 05:21 Dose: 40 mg Oxycodone HCl (Oxycontin Extended Release Tab) 20 mg PO BID [facility] Last Admin: 10/09/18 18:37 Dose: 20 mg Oxycodone HCl (Oxycodone Immediate Release Tab) 15 mg PO BID PRN PRN Reason: Pain, moderate (4-7) Last Admin: 10/09/18 21:55 Dose: 15 mg Polyethylene Glycol (Miralax) 17 gm PO BID [facility] Last Admin: 10/09/18 18:41 Dose: Not Given Roflumilast (Daliresp) 500 mcg PO DAILY [facility] Last Admin: 10/09/18 10:35 Dose: 500 mcg Sotalol HCl (Betapace) 80 mg PO BID [facility] Last Admin: 10/09/18 18:47 Dose: 80 mg Spironolactone (Aldactone) 25 mg PO DAILY [facility] Last Admin: 10/09/18 10:35 Dose: 25 mg Verapamil HCl (Calan Sr Tab) 180 mg PO DAILY [facility] Last Admin: 10/09/18 10:36 Dose: 180 mg - Labs Labs: 10/10/18 06:10 10/10/18 06:10 PT 10.5 SECONDS (9.4-12.5) 10/06/18 12:34 INR 0.93 10/06/18 12:34 APTT 25.4 Seconds (26.9-38.3) L 10/06/18 12:34 - Constitutional Appears: Non-toxic, No Acute Distress - Head Exam Head Exam: NORMAL INSPECTION, NORMOCEPHALIC - Eye Exam Eye Exam: Normal appearance Pupil Exam: NORMAL ACCOMODATION - ENT Exam ENT Exam: Mucous Membranes Dry - Respiratory Exam Respiratory Exam: Decreased Breath Sounds, Clear to Ausculation Bilateral Additional comments: BIPAP in use - Cardiovascular Exam Cardiovascular Exam: REGULAR RHYTHM, +S1, +S2 - GI/Abdominal Exam GI & Abdominal Exam: Soft, Normal Bowel Sounds - Extremities Exam Extremities Exam: Full ROM - Neurological Exam Neurological Exam: Alert, Awake, Oriented x3 - Psychiatric Exam Psychiatric exam: Normal Affect, Normal Mood - Skin Skin Exam: Dry, Normal Color, Warm Assessment and Plan - Assessment and Plan (Free Text) Assessment: A 58 year old male who came in to the ER due to shortness of breath. History of COPD on home oxygen, HTN, CHF, anemia, atrial fibrillation with radiofrequency ablation in 2017, non obstructive coronary artery disease, non STEMI, non ischemic cardiomyopathy,chronic back pain, history of kyphoplasty, off anticoagulation due to massive GI bleeding. Ruled out congestive heart failure. Exacerbation of COPD. Echo done yesterday and showed LVEF 55%, trace MR/TR. RVSP 32mmHg. Had an episode of rapid atrial fibrillation last night and Cardizem and Digoxin IV was given and slowed rate and converted to NSR. Cardiac status stable. On BIPAP/CPAP.Pulmonary on consult. Plan: Episode of rapid Atrial fibrillation last night IV Cardizem and Digoxin given and controlled and converted to NSR No distress, feels okay Heart rate controlled Blood pressure controlled On ASA 81 mg daily, Lasix 40 mg daily, Solumedrol 40 mg daily, Sotalol 80 mg BID Aldactone 25 mg daily, Verapamil 180 mg daily Continue current treatment Continue current medications Pulmonary on consult Will follow up Plan and treatment discussed with Dr. Samuel
[2018-10-10 08:25] LABS: BAND 3 % (0-2); LYMPHOCYTE 5 % (22.0-35.0); METAMYELOCYTE 1 %; MONOCYTE 4 % (1.0-6.0); NEUTROPHIL 87 % (50.0-70.0); PLATELET ESTIMATE NORMAL (NORMAL)
--- NOTE | 2018-10-10 09:30 | CARD ---
APPROVED REPORT Date of service: 10/09/2018 EKG Measurement Heart [id number] <Conclusion> Atrial fibrillation with rapid ventricular response Left axis deviation Low voltage QRS Inferior-posterior infarct, age undetermined Abnormal ECG
[2018-10-10] MEDS: Verapamil 180 mg ER Tab PO SCH (10:37)
[2018-10-10] MEDS: Cefpodoxime (Vantin) 200 mg Tab PO SCH ×2 (10:37→22:36)
[2018-10-10] MEDS: oxyCODONE 20 mg ER Tab (oxyCONTIN) PO SCH ×2 (10:37→17:22)
[2018-10-10] MEDS: POLYETHYLENE GLYCOL 3350 17 GM/Dose PACKET PO SCH ×3 (10:38→17:24)
--- NOTE | 2018-10-10 14:35 | PN ---
DATE: 10/10/2018 SUBJECTIVE: The patient is a 58-year-old seen and examined doing poorly, very upset and depressed. Last night's event noted. He went into rapid atrial fibrillation, we will continue Cardizem drip. Currently on BiPAP. He states he still does not feel good. PHYSICAL EXAMINATION VITAL SIGNS: He is afebrile, pulse 70, respirations 20 and blood pressure 121/78. LUNGS: Bilateral diffusely decreased breath sounds. Few occasional expiratory rhonchi. HEART: S1 and S2 audible. ABDOMEN: Soft, obese, and nontender. No rebound. No guarding. NEUROLOGIC: The patient is awake and alert, able to communicate. LABORATORY DATA: WBC is 9.9, hemoglobin 11.3, hematocrit 36.8, and platelets 212. Chemistry; sodium 137, potassium 4.4, chloride 93, CO2 of , BUN 35, creatinine 0.6, and blood sugar of 208. ASSESSMENT: 1. Chronic obstructive pulmonary disease exacerbation. 2. Congestive heart failure. 3. Nonischemic cardiomyopathy. 4. Degenerative disk disease. 5. Kyphoplasty. 6. History of drug abuse and alcohol abuse in the past. 7. History of atrial fibrillation, status post radio frequency ablation in 2017. 8. Nonischemic cardiomyopathy. 9. History of gastrointestinal bleed, 2 years ago. PLAN: Unfortunately, the patient's cardiopulmonary status is overall poor. At this point the patient is talking about even getting lung transplant if that help his quality of life. We will discuss with instrument checker. For now we will continue on current medication and monitor his electrolyte and CBC closely. Ross Bowman MD
--- NOTE | 2018-10-10 14:50 | PN ---
DATE: 10/10/2018 PULMONARY PROGRESS NOTE REFERRING PHYSICIAN: Ross Bowman MD SUBJECTIVE: The patient is seen sitting up in bed, high-flow oxygen ongoing at 50 liters, 46%. Last night the patient was noted to be in rapid AFib; digoxin, Cardizem given. The patient now in normal sinus rhythm. The patient reports still feeling shortness of breath, used BiPAP last night. No headache, rhinitis, chest pain, abdominal pain, nausea, vomiting, diarrhea, leg pain, or leg swelling reported. OBJECTIVE: GENERAL: No acute distress. VITAL SIGNS: Blood pressure 121/78, pulse 78, temperature 98.6, oxygen saturation on high-flow was 92%. HEENT: Moist mucous membranes. Mallampati score of 4. Small oral cavity. NECK: Supple. No JVD. Short and thick. RESPIRATORY: Rhonchi bilaterally. CARDIOVASCULAR: S1, S2. ABDOMEN: Soft, nontender. No distention. No organomegaly. EXTREMITIES: Trace bilateral lower extremity edema. NEUROLOGIC: Awake, alert, and verbal. Follows commands. MEDICATIONS: Reviewed. Tylenol 650 every 6 hours p.r.n. fever greater than 100.4, Xanax 0.5 mg twice a day, aspirin 81 mg daily, Vantin 200 mg every 12 hours, doxycycline 100 mg every 12 hours, Pepcid 20 mg daily, Lasix 40 mg daily, Xopenex 1.25 mg inhalation every 6 hours, Xopenex 1.25 mg inhalation every 12 hours p.r.n., Solu-Medrol 40 mg every 6 hours, oxycodone 15 mg twice a day p.r.n., oxycodone 20 mg twice a day, MiraLax 17 g twice a day, Daliresp 500 mcg daily, sotalol 80 mg twice a day, spironolactone 25 mg daily, and verapamil 180 mg daily. LABORATORY DATA: Reviewed. WBC 9.9, RBC 4.09, hemoglobin 11.3, hematocrit 36.8, platelets 212. PCO2 of 61, pO2 61. ABG; pH 7.41, FiO2 of 30. Sodium 137, potassium 4.4, chloride 93, carbon dioxide 40, anion gap 9, BUN 35, creatinine 0.6, GFR greater than 60, random glucose 208, hemoglobin A1c 6, calcium 9, phosphorus 8.7, magnesium 2.3, total bilirubin 0.2, AST 36, ALT 45, alkaline phosphatase 52, troponin less than 0.01, total protein 6.3, albumin 3.6, globulin 2.7, albumin globulin ratio 1.3. Triglycerides 155. Cholesterol 169, LDL cholesterol 84, HDL 55, TSH 0.59. Blood cultures preliminary, no growth after four days. DIAGNOSTIC DATA: Chest x-ray report pending. Echocardiogram shows ejection fraction 55, mitral regurgitation trace, trace tricuspid regurgitation, RVSP 32, trivial pericardial effusion. IMPRESSION AND PLAN: Chronic obstructive lung disease with nonischemic cardiomyopathy, pulmonary hypertension, history of sleep apnea syndrome, history of atrial fibrillation requiring ablation, hypertension, paroxysmal atrial fibrillation, diabetes mellitus. Continue intravenous and inhaled bronchodilators, antibiotic therapy, gastric prophylaxis. Continue high-flow oxygen. Continue bilevel positive airway pressure use at bedtime and as needed. We will place the patient on Atrovent and Singulair. We will order ABG, CBC, CMP in the morning to followup. The patient is a high risk for thromboembolic disease, not currently on any chemical anticoagulation. The patient has history of gastrointestinal bleed. Family and the patient verbalize understanding of risk of stroke with not being on any chemical anticoagulation. We will continue sequential compression devices to bilateral lower extremities for deep venous thrombosis prophylaxis. Discussed with the patient today possible lung transplant once his respiratory status improves. We will start on workup for lung transplant after exacerbation has ceased. We recommend the patient have full pulmonary function test and sleep study as outpatient. This patient was seen and examined with Dr. Mercado. Discussed assessment and plan as described above. This patient was seen and examined by Andre Johnson, nurse practitioner. Discussed assessment and plan as described above. Thank you for this consult. We will follow with you. Andre Johnson APN Shaila Mercado MD
--- NOTE | 2018-10-10 15:36 | RAD ---
Date of service: 10/10/2018 HISTORY: R/O infiltrate COMPARISON: Comparison chest dated 10/06/2018. FINDINGS: Note that the study is slightly limited due to partial obscuration of the medial lung apices left greater than right due overlying facial soft tissue and mandible artifact. Additionally, the study is further limited by kyphotic tube angulation or kyphotic patient position LUNGS: Minor bibasilar atelectasis and or scarring changes. PLEURA: No significant pleural effusion identified, no pneumothorax apparent. CARDIOVASCULAR: No aortic atherosclerotic calcification present. Normal cardiac size. No pulmonary vascular congestion. OSSEOUS STRUCTURES: Also again noted are radiopaque elliptical shaped densities in the lower thoracic region consistent with kyphoplasty cement within the L1-L2 vertebral body segments. VISUALIZED UPPER ABDOMEN: Normal. OTHER FINDINGS: None. IMPRESSION: Limited study as described. Minor bibasilar atelectasis and or scarring.
[2018-10-10] MEDS: Ipratropium 0.02% Inhal Soln (0.5 mg/2.5 ml) UD IH SCH (20:04)
[2018-10-10] MEDS: oxyCODONE 15 mg Immediate Release Tab PO PRN (22:37)
[2018-10-11] MEDS: Levalbuterol 1.25 MG/3 ML Inhal Soln UD IH SCH ×4 (02:06→20:54)
[2018-10-11] MEDS: Ipratropium 0.02% Inhal Soln (0.5 mg/2.5 ml) UD IH SCH ×4 (02:06→20:55)
[2018-10-11] MEDS: MethylPREDNISolone 40 mg Vial IV SCH ×3 (04:47→19:05)
[2018-10-11 05:36] LABS: ARTERIAL BLOOD GAS HCO3 39.6 mmol/L (21-28); ARTERIAL BLOOD GAS HEMOGLOBIN 10.8 g/dL (11.7-17.4); ARTERIAL BLOOD GAS O2 CAPACITY 14.9 mL/dl (16-24); ARTERIAL BLOOD GAS O2 CONTENT 13.6 ML/dl (15-23); ARTERIAL BLOOD GAS O2 SAT 91.3 % (95-98); ARTERIAL BLOOD GAS PCO2 57 mm/Hg (35-45); ARTERIAL BLOOD GAS PH 7.45 (7.35-7.45); ARTERIAL BLOOD GAS TCO2 41.3 mmol.L (22-28)
[2018-10-11 07:18] LABS: BASO # 0.01 K/mm3 (0.0-2.0); BASO % 0.1 % (0.0-3.0); HEMOGLOBIN 10.7 g/dL (14.0-18.0); LYMPH # 0.4 (1.2-3.4); LYMPH % 4.1 % (22.0-35.0); MEAN CELL VOLUME 86.9 fl (80.0-105.0); MEAN PLATELET VOLUME 9.6 fl (7.0-11.0); MONO # 0.7 (0.1-0.6); MONO % 7.1 % (1.0-6.0); RBC 3.97 10^6/uL (3.5-6.1); RED CELL DISTRIBUTION WIDTH 14.9 % (11.5-14.5); WHITE BLOOD COUNT 9.8 10^3/uL (4.5-11.0)
--- NOTE | 2018-10-11 07:22 | CP.PCM.PN ---
Subjective - Date & Time of Evaluation Date of Evaluation: 10/11/18 Time of Evaluation: 06:30 - Subjective Subjective: Awake, BIPAP in use, no distress Reason for consultation and follow up:Cardiac evaluation of shortness of breath, ruled out exacerbation of CHF, history of chronic COPD Seen and examined by me and Dr. Samuel Objective - Vital Signs/Intake and Output Vital Signs (last 24 hours): Temp Pulse Resp BP Pulse Ox 97.6 F 65 20 113/70 94 L 10/11/18 06:00 10/11/18 06:00 10/11/18 06:00 10/11/18 06:00 10/11/18 06:00 Intake and Output: 10/11/18 10/11/18 06:59 18:59 Intake Total 1560 Output Total 2400 Balance -840 - Medications Medications: Current Medications Acetaminophen (Tylenol 325mg Tab) 650 mg PO Q6H PRN PRN Reason: Fever >100.4 F Last Admin: 10/06/18 22:49 Dose: 650 mg Alprazolam (Xanax) 0.5 mg PO BID [facility]; Protocol Last Admin: 10/10/18 17:22 Dose: 0.5 mg Aspirin (Ecotrin) 81 mg PO DAILY [facility] Last Admin: 10/10/18 10:38 Dose: 81 mg Cefpodoxime Proxetil (Vantin) 200 mg PO Q12 [facility] Last Admin: 10/10/18 22:36 Dose: 200 mg Doxycycline Hyclate (Doryx) 100 mg PO Q12 [facility] Last Admin: 10/10/18 22:36 Dose: 100 mg Famotidine (Pepcid) 20 mg PO DAILY [facility] Last Admin: 10/10/18 10:37 Dose: 20 mg Furosemide (Lasix) 40 mg IVP DAILY [facility] Last Admin: 10/10/18 10:38 Dose: 40 mg Ipratropium [place] (Atrovent) 0.5 mg IH Q6H [facility] Last Admin: 10/11/18 02:06 Dose: 0.5 mg Levalbuterol HCl (Xopenex) 1.25 mg IH [id number] [facility] Last Admin: 10/11/18 02:06 Dose: 1.25 mg Levalbuterol HCl (Xopenex) 1.25 mg IH Q2 PRN PRN Reason: Shortness of Breath Last Admin: 10/08/18 10:51 Dose: 1.25 mg Methylprednisolone (Solu-Medrol) 40 mg IV Q6H [facility] Last Admin: 10/11/18 04:47 Dose: 40 mg Montelukast Sodium (Singulair) 10 mg PO HS [facility] Last Admin: 10/10/18 22:36 Dose: 10 mg Oxycodone HCl (Oxycontin Extended Release Tab) 20 mg PO BID [facility] Last Admin: 10/10/18 17:22 Dose: 20 mg Oxycodone HCl (Oxycodone Immediate Release Tab) 15 mg PO BID PRN PRN Reason: Pain, moderate (4-7) Last Admin: 10/10/18 22:37 Dose: 15 mg Polyethylene Glycol (Miralax) 17 gm PO BID [facility] Last Admin: 10/10/18 17:24 Dose: Not Given Roflumilast (Daliresp) 500 mcg PO DAILY [facility] Last Admin: 10/10/18 10:38 Dose: 500 mcg Sotalol HCl (Betapace) 80 mg PO BID [facility] Last Admin: 10/10/18 17:21 Dose: 80 mg Spironolactone (Aldactone) 25 mg PO DAILY [facility] Last Admin: 10/10/18 10:37 Dose: 25 mg Verapamil HCl (Calan Sr Tab) 180 mg PO DAILY [facility] Last Admin: 10/10/18 10:37 Dose: 180 mg - Labs Labs: 10/10/18 06:10 10/10/18 06:10 PT 10.5 SECONDS (9.4-12.5) 10/06/18 12:34 INR 0.93 10/06/18 12:34 APTT 25.4 Seconds (26.9-38.3) L 10/06/18 12:34 - Constitutional Appears: Non-toxic, No Acute Distress - Head Exam Head Exam: NORMAL INSPECTION, NORMOCEPHALIC - Eye Exam Eye Exam: Normal appearance Pupil Exam: NORMAL ACCOMODATION - ENT Exam ENT Exam: Mucous Membranes Moist, Normal Exam - Respiratory Exam Respiratory Exam: Decreased Breath Sounds, Clear to Ausculation Bilateral Additional comments: BIPAP in use no wheezing - Cardiovascular Exam Cardiovascular Exam: REGULAR RHYTHM, +S1, +S2 Additional comments: Telemetry NSR 70's - GI/Abdominal Exam GI & Abdominal Exam: Soft, Normal Bowel Sounds - Extremities Exam Extremities Exam: Full ROM, Normal Capillary Refill - Neurological Exam Neurological Exam: Alert, Awake, Oriented x3 - Psychiatric Exam Psychiatric exam: Normal Affect, Normal Mood - Skin Skin Exam: Dry, Normal Color, Warm Assessment and Plan - Assessment and Plan (Free Text) Assessment: A 58 year old male who came in to the ER due to shortness of breath. History of COPD on home oxygen, HTN, CHF, anemia, atrial fibrillation with radiofrequency ablation in 2017, non obstructive coronary artery disease, non STEMI, non ischemic cardiomyopathy,chronic back pain, history of kyphoplasty, off anticoagulation due to massive GI bleeding. Ruled out congestive heart failure. Exacerbation of COPD. Echo done yesterday and showed LVEF 55%, trace MR/TR. RVSP 32mmHg. Heart rate controlled and remained NSR. Will discontinue telemetry. Cardiac status stable. On BIPAP/CPAP. Pulmonary on consult. Aggressive pulmonary treatment in progress. Plan: BIPAP/CPAP in use No distress Cardiac status stable Heart rate controlled and remained normal sinus rhythm Blood pressure controlled Will discontinue telemetry On ASA 81 mg daily, Lasix 40 mg daily, Solumedrol 40 mg daily, Sotalol 80 mg BID Aldactone 25 mg daily, Verapamil 180 mg daily Continue current treatment Continue current medications Pulmonary on consult Physical therapy Discharge planning Will follow up Plan and treatment discussed with Dr. Samuel
[2018-10-11 08:44] LABS: ALB/GLOB RATIO 1.4 (1.1-1.8); ALBUMIN 3.6 g/dL (3.0-4.8); ALT/SGPT 34 U/L (7-56); AST/SGOT 35 U/L (17-59); BLOOD UREA NITROGEN 31 mg/dL (7-21); CALCIUM 9.1 mg/dL (8.4-10.5); GFR NON-AFRICAN AMERICAN > 60
--- NOTE | 2018-10-11 11:10 | CARD ---
APPROVED REPORT Date of service: 10/11/2018 EKG Measurement Heart [id number] <Conclusion> Normal sinus rhythm Low voltage QRS Incomplete right bundle branch block Borderline ECG
[2018-10-11] MEDS: POLYETHYLENE GLYCOL 3350 17 GM/Dose PACKET PO SCH ×2 (11:46→19:05)
[2018-10-11] MEDS: Verapamil 180 mg ER Tab PO SCH (11:47)
[2018-10-11] MEDS: Cefpodoxime (Vantin) 200 mg Tab PO SCH ×2 (11:52→21:03)
[2018-10-11] MEDS: oxyCODONE 20 mg ER Tab (oxyCONTIN) PO SCH ×2 (11:52→19:08)
--- NOTE | 2018-10-11 12:09 | PN ---
DATE: 10/11/2018 PULMONARY PROGRESS NOTE REFERRING PHYSICIAN: Ross Bowman MD SUBJECTIVE: The patient is seen sitting up in bed, BiPAP mask in place. The patient reports still feeling short of breath this morning, had high flow oxygen in place and tried to go to the bathroom, but reported that he just felt short of breath, came back to the bed and placed BiPAP on. With BiPAP in place, the patient reports feeling slightly better. No headache, rhinitis, chest pain, abdominal pain, nausea, vomiting, diarrhea, leg pain, or leg swelling reported. OBJECTIVE: GENERAL: No acute distress. VITAL SIGNS: Blood pressure 113/70, pulse 65, temperature 97.6, and oxygen saturation 94% on BiPAP. HEENT: Moist mucous membranes. Mallampati score of 4. Small oral cavity. NECK: Supple. No JVD. Short and thick. RESPIRATORY: Decreased breath sounds. Few rhonchi. CARDIOVASCULAR: S1 and S2. ABDOMEN: Soft, nontender. No distention. No organomegaly. EXTREMITIES: Trace bilateral lower extremity edema. NEUROLOGIC: Awake, alert, and verbal. Follows commands. MEDICATIONS: Reviewed. Tylenol 650 mg every 6 hours p.r.n. fever greater than 100.4, Xanax 0.5 mg twice a day, aspirin 81 mg daily, Vantin 200 mg every 12 hours, doxycycline 100 mg every 12 hours, Pepcid 20 mg daily, Lasix 40 mg IV push daily, Atrovent 0.5 mg inhalation every 6 hours, Xopenex 1.25 mg inhalation every 6 hours, Xopenex 1.25 mg inhalation every 2 hours p.r.n., Solu-Medrol 40 mg IV every 8 hours, Singulair 10 mg at bedtime, oxycodone 15 mg twice a day p.r.n., oxycodone 20 mg twice a day, MiraLax 17 g twice a day, Daliresp 500 mcg p.o. daily, sotalol 80 mg twice a day, Aldactone 25 mg daily, and verapamil 180 mg daily. LABORATORY DATA: Reviewed. WBC 9.8, RBC 3.97, hemoglobin 10.7, hematocrit 34.5 and platelets 196. PCO2 of 57, PO2 of 55, ABG pH 7.45 on FiO2 of 30. Sodium 136, potassium 4.2, chloride 92, carbon dioxide 38, anion gap 10, BUN 31, creatinine 0.5, GFR greater than 60, random glucose 150, calcium 9.1, phosphorus 3.7, magnesium 2.3, total bilirubin 0.3, AST 35, ALT 34, alkaline phosphatase 50, total protein 6.1, albumin 3.6, globulin 2.5 and albumin-globulin ration 1.4. Blood cultures preliminary no growth after 4 days. EKG report pending. Chest x-ray shows minor bibasilar atelectasis and scarring. IMPRESSION AND PLAN: Chronic obstructive lung disease with nonischemic cardiomyopathy, pulmonary hypertension, atrial fibrillation requiring ablation, hypotension, paroxysmal atrial fibrillation, diabetes mellitus, sleep apnea syndrome. Continue intravenous and inhaled bronchodilators, antibiotic therapy, gastric prophylaxis. Continue high-flow oxygen. Continue bilevel positive airway pressure use at bedtime and as needed. The patient is a high risk for thromboembolic disease, not currently on any chemical anticoagulation. The patient has history of gastrointestinal bleed. Family and the patient verbalize understanding of risk of stroke. With not being on any chemical anticoagulation, we will continue sequential compression devices to bilateral lower extremities for deep venous thrombosis prophylaxis. We will increase Pepcid to 40 mg daily. We will start the patient on Diamox 250 mg daily, first dose will be given today. We will monitor labs with blood work to be done in the morning. We believe the patient would benefit from lung transplant. We will start workup for lung transplant after exacerbation has ceased. We recommend this patient have full pulmonary function test and sleep study as outpatient. This patient was seen and examined with Dr. Mercado. Discussed assessment and plan as described above. This patient was seen and examined by Andre Johnson, nurse practitioner. Discussed assessment and plan as described above. Thank you for this consult. We will follow with you. Andre Johnson APN Shaila Mercado MD
--- NOTE | 2018-10-11 14:58 | PN ---
DATE: 10/11/2018 SUBJECTIVE: The patient is a 58-year-old seen and examined. Still has shortness of breath. Very annoyed because of his roommate. He states he is too loud and he could not sleep last night. Did have regular bowel movement and not eating that well. He gets shortness of breath with minimal exertion. PHYSICAL EXAMINATION: VITAL SIGNS: He is afebrile, pulse 116, respirations 25 and blood pressure 151/82. LUNGS: Bilateral diffusely decreased breath sounds. HEART: S1 and S2 audible. Tachycardic. ABDOMEN: Soft, obese, and nontender. No rebound. No guarding. NEUROLOGIC: The patient is awake and alert, able to communicate. EXTREMITIES: Bilateral legs, no edema. LABORATORY DATA: WBC is 9.8, hemoglobin 10.7, hematocrit 34.4, and platelets 196. Chemistry; sodium 136, potassium 4.2, chloride 92, CO2 of 38, BUN 31, creatinine 0.5, and blood sugar is 151, magnesium 2.3. ASSESSMENT: 1. Terminal chronic obstructive pulmonary disease. 2. Chronic obstructive pulmonary disease exacerbation with bronchospasm. 3. Rapid atrial fibrillation seems to be rate controlled. 4. History of hypertension, currently running hypotensive. 5. History of gastrointestinal bleed. 6. History of atrial fibrillation, had ablation done last year. 7. Deconditioning. PLAN: We will cut down his steroid to every 8 hours 40 mg, continue him on verapamil, continue him on sotalol, pulmonary input noted and appreciated. Once the patient gets out of this acute exacerbation, he will be evaluated by sleep study and PFTs to determine if he is a candidate of lung transplant because I had the long discussion with the patient, he states he cannot live like that, he is relatively young and he is start of living like this and wants if lung transplant will help him. Ross Bowman MD
[2018-10-12] MEDS: MethylPREDNISolone 40 mg Vial IV SCH ×3 (02:08→18:35)
[2018-10-12] MEDS: Ipratropium 0.02% Inhal Soln (0.5 mg/2.5 ml) UD IH SCH ×4 (02:12→20:35)
[2018-10-12] MEDS: Levalbuterol 1.25 MG/3 ML Inhal Soln UD IH SCH ×4 (02:12→20:35)
--- NOTE | 2018-10-12 07:10 | CP.PCM.PN ---
Subjective - Date & Time of Evaluation Date of Evaluation: 10/12/18 Time of Evaluation: 07:00 - Subjective Subjective: No distress, BIPAP in use, awake Reason for consultation and follow up:Cardiac evaluation of shortness of breath, ruled out exacerbation of CHF, history of chronic COPD Seen and examined by me and Dr. Samuel Objective - Vital Signs/Intake and Output Vital Signs (last 24 hours): Temp Pulse Resp BP Pulse Ox 97.5 F L 63 20 107/65 96 10/11/18 21:19 10/12/18 02:14 10/11/18 21:19 10/11/18 21:19 10/11/18 21:19 Intake and Output: 10/12/18 10/12/18 06:59 18:59 Intake Total 960 Output Total 1300 Balance -340 - Medications Medications: Current Medications Acetaminophen (Tylenol 325mg Tab) 650 mg PO Q6H PRN PRN Reason: Fever >100.4 F Last Admin: 10/06/18 22:49 Dose: 650 mg Acetazolamide (Diamox 250 Mg Tab) 250 mg PO DAILY [facility] Last Admin: 10/11/18 15:27 Dose: 250 mg Alprazolam (Xanax) 0.5 mg PO BID [facility]; Protocol Last Admin: 10/11/18 19:09 Dose: 0.5 mg Aspirin (Ecotrin) 81 mg PO DAILY [facility] Last Admin: 10/11/18 11:51 Dose: 81 mg Cefpodoxime Proxetil (Vantin) 200 mg PO Q12 [facility] Last Admin: 10/11/18 21:03 Dose: 200 mg Famotidine (Pepcid) 40 mg PO DAILY [facility] Furosemide (Lasix) 40 mg IVP DAILY [facility] Last Admin: 10/11/18 11:46 Dose: 40 mg Ipratropium [place] (Atrovent) 0.5 mg IH Q6H [facility] Last Admin: 10/12/18 02:12 Dose: 0.5 mg Levalbuterol HCl (Xopenex) 1.25 mg IH [id number] [facility] Last Admin: 10/12/18 02:12 Dose: 1.25 mg Levalbuterol HCl (Xopenex) 1.25 mg IH Q2 PRN PRN Reason: Shortness of Breath Last Admin: 10/08/18 10:51 Dose: 1.25 mg Methylprednisolone (Solu-Medrol) 40 mg IV Q8H [facility] Last Admin: 10/12/18 02:08 Dose: 40 mg Montelukast Sodium (Singulair) 10 mg PO HS [facility] Last Admin: 10/11/18 21:10 Dose: Not Given Oxycodone HCl (Oxycontin Extended Release Tab) 20 mg PO BID [facility] Last Admin: 10/11/18 19:08 Dose: 20 mg Oxycodone HCl (Oxycodone Immediate Release Tab) 15 mg PO BID PRN PRN Reason: Pain, moderate (4-7) Last Admin: 10/10/18 22:37 Dose: 15 mg Polyethylene Glycol (Miralax) 17 gm PO BID [facility] Last Admin: 10/11/18 19:05 Dose: 17 gm Roflumilast (Daliresp) 500 mcg PO DAILY [facility] Last Admin: 10/11/18 11:52 Dose: 500 mcg Sotalol HCl (Betapace) 80 mg PO BID [facility] Last Admin: 10/11/18 19:06 Dose: 80 mg Spironolactone (Aldactone) 25 mg PO DAILY [facility] Last Admin: 10/11/18 11:52 Dose: 25 mg Verapamil HCl (Calan Sr Tab) 180 mg PO DAILY [facility] Last Admin: 10/11/18 11:47 Dose: 180 mg - Labs Labs: 10/11/18 07:00 10/11/18 07:00 PT 10.5 SECONDS (9.4-12.5) 10/06/18 12:34 INR 0.93 10/06/18 12:34 APTT 25.4 Seconds (26.9-38.3) L 10/06/18 12:34 - Constitutional Appears: Non-toxic, No Acute Distress - Head Exam Head Exam: NORMAL INSPECTION, NORMOCEPHALIC - Eye Exam Eye Exam: Normal appearance Pupil Exam: NORMAL ACCOMODATION - Respiratory Exam Respiratory Exam: Decreased Breath Sounds, Clear to Ausculation Bilateral, NORMAL BREATHING PATTERN - Cardiovascular Exam Cardiovascular Exam: +S1, +S2 - GI/Abdominal Exam GI & Abdominal Exam: Soft, Normal Bowel Sounds - Extremities Exam Extremities Exam: Full ROM - Neurological Exam Neurological Exam: Alert, Awake, Oriented x3 - Psychiatric Exam Psychiatric exam: Normal Affect, Normal Mood - Skin Skin Exam: Dry, Normal Color, Warm Assessment and Plan - Assessment and Plan (Free Text) Assessment: A 58 year old male who came in to the ER due to shortness of breath. History of COPD on home oxygen, HTN, CHF, anemia, atrial fibrillation with radiofrequency ablation in 2017, non obstructive coronary artery disease, non STEMI, non isc hemic cardiomyopathy,chronic back pain, history of kyphoplasty, off anticoagulation due to massive GI bleeding. Ruled out congestive heart failure. Exacerbation of COPD. Echo done and showed LVEF 55%, trace MR/TR. RVSP 32mmHg. Heart rate controlled and remained NSR. Telemetry discontinued. . On BIPAP/CPAP. Pulmonary on consult. Aggressive pulmonary treatment in progress. Sequential compression for DVT prophylaxis. Cardiac status stable Plan: Less short of breath with BIPAP/CPAP in use Off and on high flow oxygen No distress Cardiac status stable Heart rate controlled Blood pressure controlled Discontinued telemetry On ASA 81 mg daily, Lasix 40 mg daily, Solumedrol 40 mg daily, Sotalol 80 mg BID Aldactone 25 mg daily, Verapamil 180 mg daily Continue current treatment Continue current medications Pulmonary on consult Physical therapy Discharge planning Will follow up Plan and treatment discussed with Dr. Samuel
[2018-10-12 07:42] LABS: ALB/GLOB RATIO 1.6 (1.1-1.8); ALBUMIN 3.5 g/dL (3.0-4.8); ALT/SGPT 26 U/L (7-56); AST/SGOT 22 U/L (17-59); BLOOD UREA NITROGEN 22 mg/dL (7-21); CALCIUM 9.5 mg/dL (8.4-10.5); GFR NON-AFRICAN AMERICAN > 60
[2018-10-12] MEDS: Cefpodoxime (Vantin) 200 mg Tab PO SCH ×2 (09:47→21:15)
[2018-10-12] MEDS: POLYETHYLENE GLYCOL 3350 17 GM/Dose PACKET PO SCH ×2 (09:47→17:20)
[2018-10-12] MEDS: Verapamil 180 mg ER Tab PO SCH (09:47)
[2018-10-12] MEDS: oxyCODONE 20 mg ER Tab (oxyCONTIN) PO SCH ×2 (09:49→17:19)
--- NOTE | 2018-10-12 12:25 | PN ---
DATE: 10/12/2018 REFERRING PHYSICIAN: Ross Bowman MD SUBJECTIVE: The patient is seen sitting up in bed, BiPAP in use. Reports still having shortness of breath, but states that he feels better or he feels less short of breath when using BiPAP. No headache, rhinitis, chest pain, abdominal pain, nausea, vomiting, diarrhea, leg pain or leg swelling reported. OBJECTIVE: VITAL SIGNS: Blood pressure 127/79, pulse 67, temperature 97, oxygen saturation 93% on BiPAP. GENERAL: No acute distress. HEENT: Moist mucous membranes. Mallampati score of 4. Small oral cavity. NECK: Supple. No JVD. Short and thick. RESPIRATORY: Rhonchi bilaterally. Decreased breath sounds. CARDIOVASCULAR: S1, S2. ABDOMEN: Soft, nontender. No distention. No organomegaly. EXTREMITIES: No bilateral lower extremity edema. NEUROLOGIC: Awake, alert, verbal, follows commands. MEDICATIONS: Reviewed. Tylenol 650 mg every 6 hours p.r.n. if fever greater than 100.4, Diamox 250 mg p.o. daily, Xanax 0.5 mg twice a day, aspirin 81 mg daily, Vantin 200 mg every 12 hours, Pepcid 40 mg daily, Lasix 40 mg daily, Atrovent 0.5 mg inhalation every 6 hours, Xopenex 1.25 mg inhalation every 6 hours, Xopenex 1.25 mg inhalation every 2 hours p.r.n., Solu-Medrol 40 mg every 8 hours, Singulair 10 mg at bedtime, oxycodone 15 mg twice a day p.r.n., OxyContin 20 mg twice a day, MiraLax 17 g twice a day, Daliresp 500 mcg daily, sotalol 80 mg twice a day, Aldactone 25 mg daily, and verapamil 180 mg daily. LABORATORY DATA: Reviewed. Sodium 138, potassium 4.1, chloride 95, carbon dioxide 33, anion gap 13, BUN 22, creatinine 0.8, GFR greater than 60, random glucose 260, calcium 9.5, total bilirubin 0.2, AST 22, ALT 26, alkaline phosphatase 50, total protein 5.7, albumin 3.5, globulin 2.2, and albumin-globulin ratio 1.6. Blood cultures final, no growth after 5 days. DIAGNOSTIC DATA: EKG normal sinus rhythm. IMPRESSION AND PLAN: Chronic obstructive lung disease with nonischemic cardiomyopathy, pulmonary hypertension, atrial fibrillation requiring ablation, hypertension, paroxysmal atrial fibrillation, sleep apnea syndrome, diabetes mellitus, history of congestive heart failure, anemia, nonobstructive coronary artery disease, [id number] myocardial infarction, history of kyphoplasty. Continue intravenous and inhaled bronchodilators. Steroid was reduced yesterday by primary physician. Continue gastric prophylaxis. The patient on sequential compression devices to lower extremities for deep venous thrombosis prophylaxis as the patient cannot be on chemical anticoagulation due to history of gastrointestinal bleed. Continue high-flow oxygen. Continue BiPAP use at bedtime and as needed. Continue gastric prophylaxis, leukotriene inhibitors. We will place the patient on chest physiotherapy. We will add antihistamines and Claritin. We will decrease Diamox to 125 mg daily. SMA to be done in the morning. We believe the patient will benefit from lung transplant with workup for lung transplant after exacerbation has ceased. We recommend this patient have full pulmonary function test and sleep study as outpatient. This patient was seen and examined with Dr. Mercado. Discussed assessment and plan as described above. This patient was seen and examined by Andre Johnson, nurse practitioner. Discussed assessment and plan as described above. Thank you for this consult. We will follow with you. Andre Johnson APN Shaila Mercado MD
--- NOTE | 2018-10-12 13:04 | CP.PCM.PCO ---
Physician Communication Note - Physician Communication Note Physician Communication Note: continuous bipap with intermittent high flow, continue solumedrol
--- NOTE | 2018-10-12 14:12 | PN ---
DATE: 10/12/2018 SUBJECTIVE: The patient is a 58-year-old seen and examined, remained on BiPAP. Seem to be very anxious and frustrated, eating fair, gets shortness of breath on minimal exertion. PHYSICAL EXAMINATION: VITAL SIGNS: He is afebrile. Pulse 68, respirations 20, blood pressure 128/80. LUNGS: Bilateral diffusely decreased breath sounds. Occasional expiratory rhonchi posteriorly. HEART: S1 and S2 audible. ABDOMEN: Soft, obese, and nontender. No rebound. No guarding. NEUROLOGIC: The patient is awake and alert, able to communicate. EXTREMITIES: Bilateral legs, no edema. LABORATORY DATA: Sodium 138, potassium 4.1, chloride 95, CO2 of 33, BUN 22, creatinine 0.8, blood sugar of 268. ASSESSMENT: 1. Chronic obstructive pulmonary disease exacerbation. 2. Exertional dyspnea. 3. Nonischemic cardiomyopathy. 4. History of atrial fibrillation, status post radiofrequency ablation, still gets paroxysmal atrial fibrillation. 5. History of hypertension, currently normotensive. 6. History of anemia. 7. Degenerative disc disease, status post multiple kyphoplasty. 8. History of drug abuse in the past, use to be on methadone, currently on oxycodone and MS Contin. PLAN: Currently the patient is on BiPAP. He is on IV steroid, will be slowly tapered down. He is on Singulair. He is on Daliresp. Discussed with the patient, he might benefit from LTAC. He will discussed with his and if agreeable we will make arrangement for LTAC. oRss Bowman MD
[2018-10-13] MEDS: Ipratropium 0.02% Inhal Soln (0.5 mg/2.5 ml) UD IH SCH ×4 (01:10→20:05)
[2018-10-13] MEDS: Levalbuterol 1.25 MG/3 ML Inhal Soln UD IH SCH ×4 (01:10→20:05)
[2018-10-13] MEDS: MethylPREDNISolone 40 mg Vial IV SCH (02:49)
[2018-10-13 08:10] LABS: BLOOD UREA NITROGEN 24 mg/dL (7-21); CALCIUM 9.1 mg/dL (8.4-10.5); GFR NON-AFRICAN AMERICAN > 60
[2018-10-13] MEDS: Levalbuterol 1.25 MG/3 ML Inhal Soln UD IH PRN (08:44)
[2018-10-13] MEDS: Verapamil 180 mg ER Tab PO SCH (09:19)
[2018-10-13] MEDS: Cefpodoxime (Vantin) 200 mg Tab PO SCH ×2 (09:19→22:18)
[2018-10-13] MEDS: oxyCODONE 20 mg ER Tab (oxyCONTIN) PO SCH ×2 (09:20→22:17)
[2018-10-13] MEDS: POLYETHYLENE GLYCOL 3350 17 GM/Dose PACKET PO SCH ×2 (09:20→17:53)
[2018-10-13] MEDS ORDERED: MethylPREDNISolone 40 mg Vial IV SCH ×2 (11:45→14:00)
[2018-10-13] MEDS: oxyCODONE 15 mg Immediate Release Tab PO PRN (15:23)
--- NOTE | 2018-10-13 15:54 | PN ---
DATE: 10/13/2018 SUBJECTIVE: The patient is a 58-year-old, seen and examined, still has shortness of breath. Feels comfortable while on BiPAP, eating fair. PHYSICAL EXAMINATION: VITAL SIGNS: He is afebrile, pulse 69, respirations 18, blood pressure 124/76. LUNGS: Bilateral diffusely decreased breath sounds. No active rhonchi or crackles. HEART: S1 and S2 audible. ABDOMEN: Soft, obese, nontender. No rebound. No guarding. NEUROLOGICAL: He is awake and alert, able to communicate. No focal deficits. EXTREMITIES: Bilateral legs no edema. LABORATORY DATA: Chemistries: Sodium 136, potassium 4.2, chloride 98, CO2 of 30, BUN 24, creatinine 0.7, blood sugar of 218. ASSESSMENT: 1. Acute and chronic obstructive pulmonary disease with bronchospasm. 2. Nonischemic cardiomyopathy. 3. History of hypertension, currently running normotensive. 4. Degenerative disk disease. 5. History of atrial fibrillation, status post ablation. PLAN: Currently, the patient is on spironolactone 25 daily. He is on Atrovent. He is on sotalol 80 mg twice, verapamil 180 daily. He is on Daliresp, acetazolamide has been decreased to 125 daily, aspirin 81 daily. He is on Lasix 40 mg IV daily. He is on Percocet as needed. He is on famotidine, Singulair 10 mg at bedtime. He is on methylprednisolone 40 mg every 8 hours and is on Xopenex and Xanax as needed. Currently, his medication seems to be appropriate. We will continue that. We will taper down his steroids and change it to 40 every 12 hours. Encouraged to sit out of bed to chair. We will observe over the weekend and make disposition plan on Monday. Ross Bowman MD
[2018-10-13] MEDS: MethylPREDNISolone 40 mg Vial IVP SCH ×2 (17:53→21:00)
--- NOTE | 2018-10-13 21:04 | PN ---
DATE: 10/13/2018 PULMONARY PROGRESS NOTE REFERRING PHYSICIAN: Ross Bowman MD SUBJECTIVE: The patient is lying in the bed, head at 45 degrees, family is bedside. On high-flow nasal cannula, feels little better, more comfortable, used noninvasive ventilation overnight. This morning, there is no much cough but still short of breath. No chest pain, no nausea, no vomiting, no diarrhea, leg pain, or leg swelling. OBJECTIVE GENERAL: No acute distress. VITAL SIGNS: Temperature is 98, heart rate 70, respiratory rate 20, blood pressure 106/70, pulse ox 94% on high-flow nasal cannula. HEENT: Moist mucous membrane. Crowded airway. Mallampati score is 4. NECK: Supple. No JVD. LUNGS: Have little better airflow, overall poor airflow. HEART: S1 and S2. ABDOMEN: Soft, nontender. No organomegaly. EXTREMITIES: No edema. NEUROLOGIC: Awake, alert, follows simple commands. MEDICATIONS: He is on Aldactone 25 mg daily, Atrovent inhaled every 6 hours, sotalol 80 mg twice a day, verapamil 180 mg daily, Claritin 10 mg daily, Daliresp 500 mcg daily, Diamox 125 mg daily, Ecotrin 81 mg daily, Lasix 40 mg daily, MiraLax 17 g twice a day, oxycodone immediate release 50 mg twice a day p.r.n., and OxyContin extended release 20 mg twice a day, Pepcid 40 mg daily, Singulair 10 mg daily, Solu-Medrol 40 mg every 12 hours, Tylenol p.r.n. basis, Vantin 200 mg twice a day, Xanax 0.5 mg twice a day, Xopenex inhaled every 6 hours. LABORATORY DATA: Reviewed and noted. Sodium 136, potassium 4.2, chloride 98, bicarbonate 30, BUN 24, creatinine 0.7, glucose 218, calcium is 9.1. IMPRESSION AND PLAN: Severe obstructive lung disease; nonischemic cardiomyopathy; mild pulmonary hypertension; atrial fibrillation, requiring ablation in the past, on beta blockers; hypertension; sleep apnea syndrome; diabetes; anemia; coronary artery disease; history of kyphoplasty in the past with vertebral compression fracture. Case discussed with family and patient in detail. Agree with Dr. Bowman with the present management. Continue steroids, inhaled bronchodilator, antibiotics, gastric prophylaxis, DVT prophylaxis. Continue Diamox for now. We will send his anemia workup. His hemoglobin should be 16 or so, it is 12 at present time. We will send B12, folate, stool for guaiac. Followup labs in the morning. Thank you and we will follow with you. Shaila Mercado MD
[2018-10-14] MEDS: Levalbuterol 1.25 MG/3 ML Inhal Soln UD IH SCH ×4 (01:00→20:49)
[2018-10-14] MEDS: Ipratropium 0.02% Inhal Soln (0.5 mg/2.5 ml) UD IH SCH ×4 (01:00→20:49)
[2018-10-14] MEDS: Levalbuterol 1.25 MG/3 ML Inhal Soln UD IH PRN (05:25)
[2018-10-14 07:08] LABS: IRON 44 ug/dL (45-180)
[2018-10-14 07:18] LABS: % IRON SATURATION 13 % (20-55); TOTAL IRON BINDING CAPACITY 328 ug/dL (261-462)
[2018-10-14] MEDS ORDERED: Loperamide Hydrochloride 1 mg/5 ml Cup PO PRN (08:06)
[2018-10-14] MEDS: oxyCODONE 15 mg Immediate Release Tab PO PRN ×2 (08:19→17:50)
[2018-10-14] MEDS: Cefpodoxime (Vantin) 200 mg Tab PO SCH ×2 (09:41→22:01)
[2018-10-14] MEDS: MethylPREDNISolone 40 mg Vial IVP SCH ×2 (09:42→22:01)
[2018-10-14] MEDS: Verapamil 180 mg ER Tab PO SCH (09:43)
[2018-10-14] MEDS: POLYETHYLENE GLYCOL 3350 17 GM/Dose PACKET PO SCH (09:44)
[2018-10-14 12:16] LABS: FERRITIN 26.3 ng/mL
[2018-10-14 12:48] LABS: FOLATE 7.6 ng/mL
[2018-10-14] MEDS: oxyCODONE 20 mg ER Tab (oxyCONTIN) PO SCH ×2 (13:36→22:01)
--- NOTE | 2018-10-14 20:18 | PN ---
DATE: 10/14/2018 SUBJECTIVE: The patient has no complaints of any chest pain. He was complaining of shortness of breath. He had gone from the commode to the bed and said he was short of breath. PHYSICAL EXAMINATION: VITAL SIGNS: Temperature 97.7, pulse , blood pressure 110/70, and respirations . GENERAL: The patient is lying in bed, flat, comfortable. HEENT: No oral lesion. Anicteric sclerae. Moist mucosa. NECK: No JVD, adenopathy, or thyromegaly. CARDIOVASCULAR: S1 and S2, regular. No murmurs, rubs, or gallops. LUNGS: Clear to auscultation bilaterally. No wheeze, rales, or rhonchi. ABDOMEN: Bowel sounds are positive, soft, nontender and nondistended. EXTREMITIES: No cyanosis, clubbing or edema. LABORATORY DATA: White count of 9.8 and hemoglobin 10.7. Creatinine is 0.7. ASSESSMENT: 1. Acute chronic obstructive pulmonary disease. 2. Nonischemic cardiomyopathy. 3. Degenerative joint disease. 4. Atrial fibrillation. PLAN: The patient is currently on sotalol for his atrial fibrillation. He is on for his allergies. He is going to continue with Diamox. He has COPD and has bicarb that was elevated as well as pCO2. The patient is on Aldactone, he is going to continue. I have placed him on loperamide because of diarrhea that he is complaining about. He is on MiraLax, I will discontinue his MiraLax. He is on steroids for his COPD. He is on antibiotics with cefpodoxime 200 mg every 12 hours. The patient is on Xopenex. Johnathon Willoughby MD
[2018-10-14 22:24] VITALS: O2SAT 95
[2018-10-15] MEDS: Levalbuterol 1.25 MG/3 ML Inhal Soln UD IH SCH ×4 (01:11→20:21)
[2018-10-15] MEDS: Ipratropium 0.02% Inhal Soln (0.5 mg/2.5 ml) UD IH SCH ×4 (01:11→20:20)
--- NOTE | 2018-10-15 06:43 | CP.PCM.PN ---
Subjective - Date & Time of Evaluation Date of Evaluation: 10/15/18 Time of Evaluation: 06:30 - Subjective Subjective: Awake, mild shortness of breath when talking, on high flow oxygen Reason for consultation and follow up:Cardiac evaluation of shortness of breath, ruled out exacerbation of CHF, history of chronic COPD Seen and examined by me and Dr. Samuel Objective - Vital Signs/Intake and Output Vital Signs (last 24 hours): Temp Pulse Resp BP Pulse Ox 97.5 F L 68 16 114/71 95 10/14/18 22:00 10/14/18 22:00 10/14/18 22:00 10/14/18 22:00 10/14/18 22:00 Intake and Output: 10/14/18 10/15/18 18:59 06:59 Intake Total 345 Output Total 600 Balance 345 -600 - Medications Medications: Current Medications Acetaminophen (Tylenol 325mg Tab) 650 mg PO Q6H PRN PRN Reason: Fever >100.4 F Last Admin: 10/06/18 22:49 Dose: 650 mg Acetazolamide (Diamox 250 Mg Tab) 125 mg PO DAILY FOR[facility]LY [facility], [facility] Last Admin: 10/14/18 09:42 Dose: 125 mg Alprazolam (Xanax) 0.5 mg PO BID [facility], [facility]; Protocol Last Admin: 10/14/18 22:01 Dose: 0.5 mg Aspirin (Ecotrin) 81 mg PO DAILY [facility], [facility] Last Admin: 10/14/18 09:41 Dose: 81 mg Cefpodoxime Proxetil (Vantin) 200 mg PO Q12 [facility], [facility] Last Admin: 10/14/18 22:01 Dose: 200 mg Famotidine (Pepcid) 40 mg PO DAILY [facility] Last Admin: 10/14/18 09:41 Dose: 40 mg Furosemide (Lasix) 40 mg IVP DAILY [facility], [facility] Last Admin: 10/14/18 09:43 Dose: 40 mg Ipratropium [place] (Atrovent) 0.5 mg IH Q6H [facility], [facility] Last Admin: 10/15/18 01:11 Dose: 0.5 mg Levalbuterol HCl (Xopenex) 1.25 mg IH [id number] [facility], [facility] Last Admin: 10/15/18 01:11 Dose: 1.25 mg Levalbuterol HCl (Xopenex) 1.25 mg IH Q2 PRN PRN Reason: Shortness of Breath Last Admin: 10/14/18 05:25 Dose: 1.25 mg Loperamide HCl (Imodium) 2 mg PO Q6H PRN PRN Reason: Diarrhea Last Admin: 10/14/18 08:47 Dose: 2 mg Loratadine (Claritin) 10 mg PO HS [facility] Last Admin: 10/14/18 22:00 Dose: 10 mg Methylprednisolone (Solu-Medrol) 40 mg IVP Q12 [facility] Last Admin: 10/14/18 22:01 Dose: 40 mg Montelukast Sodium (Singulair) 10 mg PO HS [facility] Last Admin: 10/14/18 22:01 Dose: 10 mg Oxycodone HCl (Oxycontin Extended Release Tab) 20 mg PO BID [facility] Last Admin: 10/14/18 22:01 Dose: 20 mg Oxycodone HCl (Oxycodone Immediate Release Tab) 15 mg PO BID PRN PRN Reason: Pain, moderate (4-7) Last Admin: 10/14/18 17:50 Dose: 15 mg Roflumilast (Daliresp) 500 mcg PO DAILY [facility] Last Admin: 10/14/18 09:42 Dose: 500 mcg Sotalol HCl (Betapace) 80 mg PO BID [facility] Last Admin: 10/14/18 17:49 Dose: 80 mg Spironolactone (Aldactone) 25 mg PO DAILY [facility] Last Admin: 10/14/18 09:42 Dose: 25 mg Verapamil HCl (Calan Sr Tab) 180 mg PO DAILY [facility] Last Admin: 10/14/18 09:43 Dose: 180 mg - Labs Labs: 10/11/18 07:00 10/13/18 07:30 PT 10.5 SECONDS (9.4-12.5) 10/06/18 12:34 INR 0.93 10/06/18 12:34 APTT 25.4 Seconds (26.9-38.3) L 10/06/18 12:34 - Constitutional Appears: Non-toxic, No Acute Distress - Head Exam Head Exam: NORMAL INSPECTION, NORMOCEPHALIC - Eye Exam Eye Exam: Normal appearance Pupil Exam: NORMAL ACCOMODATION - ENT Exam ENT Exam: Mucous Membranes Moist - Respiratory Exam Respiratory Exam: Decreased Breath Sounds, Clear to Ausculation Bilateral Additional comments: mild shortness of breath on high flow oxygen - Cardiovascular Exam Cardiovascular Exam: +S1, +S2 - GI/Abdominal Exam GI & Abdominal Exam: Soft, Normal Bowel Sounds - Extremities Exam Extremities Exam: Full ROM, Normal Capillary Refill - Neurological Exam Neurological Exam: Alert, Awake, Oriented x3 - Psychiatric Exam Psychiatric exam: Normal Affect, Normal Mood - Skin Skin Exam: Dry, Normal Color, Warm Assessment and Plan - Assessment and Plan (Free Text) Assessment: A 58 year old male who came in to the ER due to shortness of breath. History of COPD on home oxygen, HTN, CHF, anemia, atrial fibrillation with radiofrequency ablation in 2017, non obstructive coronary artery disease, non STEMI, non ischemic cardiomyopathy,chronic back pain, history of kyphoplasty, off anticoagulation due to massive GI bleeding. Ruled out congestive heart failure. Exacerbation of COPD. Echo done and showed LVEF 55%, trace MR/TR. RVSP 32mmHg. Heart rate controlled and remained NSR. Telemetry discontinued. . On BIPAP/CPAP. and high flow oxygen. Pulmonary on consult. Aggressive pulmonary treatment in progress. Sequential compression for DVT prophylaxis. Cardiac status stable. Patient considering evaluation for lung transplant. Plan: Mild shortness of breath when talking, on high flow oxygen On BIPAP/CPAP Cardiac status stable Heart rate controlled Blood pressure controlled On ASA 81 mg daily, Lasix 40 mg daily, Solumedrol 40 mg daily, Sotalol 80 mg BID Aldactone 25 mg daily, Verapamil 180 mg daily Continue current treatment Continue current medications Pulmonary on consult Physical therapy Discharge planning Will follow up Plan and treatment discussed with Dr. Samuel
[2018-10-15 07:57] VITALS: PULSE 76; RESP 18; TEMP 97.9
[2018-10-15] MEDS: oxyCODONE 15 mg Immediate Release Tab PO PRN (08:14)
--- NOTE | 2018-10-15 08:47 | PN ---
DATE: 10/14/2018 PULMONARY PROGRESS NOTE REFERRING PHYSICIAN: Ross Bowman MD SUBJECTIVE: The patient is seen lying in bed. Head of bed elevated 45 degrees. BiPAP ongoing. The patient still reports having shortness of breath. No headache, rhinitis, cough, chest pain, abdominal pain, nausea, vomiting, diarrhea, leg pain or leg swelling reported. OBJECTIVE: VITAL SIGNS: Blood pressure 115/63, pulse 65, temperature 97.6 and oxygen saturation 94% on BiPAP. GENERAL: No acute distress. HEENT: Moist mucus membranes. Crowded airway. Mallampati score 4. NECK: Supple. No JVD. LUNGS: Decreased breath sounds bilaterally. CARDIOVASCULAR: S1 and S2. ABDOMEN: Soft and nontender. No distention. No organomegaly. EXTREMITIES: No bilateral lower extremity edema. NEUROLOGIC: Awake, alert and verbal. Follows commands. MEDICATIONS: Reviewed. Tylenol 650 mg every 6 hours p.r.n. if fever greater than 100.4, Diamox 125 mg daily, Xanax 0.5 mg twice a day, aspirin 81 mg daily, Vantin 200 mg every 12 hours, Pepcid 40 mg daily, Lasix 40 mg daily, Atrovent 0.5 mg inhalation every 6 hours, Xopenex 1.25 mg every 6 hours, Xopenex 1.25 mg every 2 hours p.r.n., Claritin 10 mg at bedtime, Solu-Medrol 40 mg IV push every 12 hours, Singulair 10 mg at bedtime, oxycodone 15 mg p.o. twice a day p.r.n., OxyContin 20 mg twice a day, MiraLax 17 g twice a day, Daliresp 500 mcg daily, sotalol 80 mg twice a day, Aldactone 25 mg daily, and verapamil 180 mg daily. LABORATORY DATA: Reviewed. Iron 44, TIBC 328, percent saturation 13, IMPRESSION AND PLAN: Severe chronic obstructive lung disease, nonischemic cardiomyopathy; mild pulmonary hypertension; atrial fibrillation, requiring ablation in the past, on beta judith; hypertension; sleep apnea syndrome; diabetes, coronary artery disease; anemia; history of kyphoplasty in the past with vertebral compression fracture. Continue steroids, inhaled bronchodilators, antibiotic therapy, gastric prophylaxis, deep venous thrombosis prophylaxis. Continue Diamox at this time. We will follow up with labs when available. Recommend physical therapy for this patient. This patient was seen and examined with Dr. Mercado. Discussed assessment and plan as described above. This patient was seen and examined by Andre Johnson, nurse practitioner. Discussed assessment and plan as described above. Thank you for this consult. We will follow with you. Andre Johnson APN Shaila Mercado MD
[2018-10-15] MEDS: Verapamil 180 mg ER Tab PO SCH (09:54)
[2018-10-15] MEDS: Cefpodoxime (Vantin) 200 mg Tab PO SCH (09:54)
[2018-10-15] MEDS: MethylPREDNISolone 40 mg Vial IVP SCH (09:55)
[2018-10-15 10:52] LABS: BASO # 0.02 K/mm3 (0.0-2.0); BASO % 0.1 % (0.0-3.0); HEMOGLOBIN 11.4 g/dL (14.0-18.0); LYMPH # 0.6 (1.2-3.4); LYMPH % 4.3 % (22.0-35.0); MEAN CELL VOLUME 85.7 fl (80.0-105.0); MEAN CORPUSCULAR HEMOGLOBIN 27.1 pg (25.0-35.0); MEAN CORPUSCULAR HGB CONC 31.7 g/dl (31.0-37.0); MEAN PLATELET VOLUME 9.7 fl (7.0-11.0); MONO # 0.6 (0.1-0.6); MONO % 3.7 % (1.0-6.0); PLATELET COUNT 198 10^3/uL (120.0-450.0); RED CELL DISTRIBUTION WIDTH 14.8 % (11.5-14.5); WHITE BLOOD COUNT 14.8 10^3/uL (4.5-11.0)
[2018-10-15 11:05] LABS: ALB/GLOB RATIO 1.1 (1.1-1.8); ALBUMIN 3.3 g/dL (3.0-4.8); ALT/SGPT 20 U/L (7-56); AST/SGOT 19 U/L (17-59); BLOOD UREA NITROGEN 17 mg/dL (7-21); CALCIUM 8.8 mg/dL (8.4-10.5); GFR NON-AFRICAN AMERICAN > 60
[2018-10-15 11:07] LABS: BAND 3 % (0-2); LYMPHOCYTE 4 % (22.0-35.0); MONOCYTE 1 % (1.0-6.0); NEUTROPHIL 92 % (50.0-70.0)
[2018-10-15 11:08] LABS: PLATELET ESTIMATE NORMAL (NORMAL)
--- NOTE | 2018-10-15 12:05 | CP.PCM.PCO ---
Physician Communication Note - Physician Communication Note Physician Communication Note: patient is cleared for D/C to [facility] by PMD and consultants for today
[2018-10-15] MEDS: oxyCODONE 20 mg ER Tab (oxyCONTIN) PO SCH ×2 (12:09→18:31)
--- NOTE | 2018-10-15 15:07 | PN ---
DATE: 10/15/2018 PULMONARY PROGRESS NOTE REFERRING PHYSICIAN: Ross Bowman MD. SUBJECTIVE: The patient is seen sitting up in bed, high-flow oxygen currently ongoing. Wore BiPAP last night. The patient reports feeling slightly better this morning, still has shortness of breath. No headache, rhinitis, cough, chest pain, abdominal pain, nausea, vomiting, diarrhea, leg pain or leg swelling reported. OBJECTIVE: VITAL SIGNS: Blood pressure 116/64, pulse 76, temperature 97.9 and oxygen saturation 95% on high-flow. GENERAL: No acute distress. HEENT: Moist mucus membranes. Crowded airway. Mallampati score of 4. NECK: Supple. No JVD. LUNGS: Decreased breath sounds bilaterally. Few rhonchi. CARDIOVASCULAR: S1 and S2. ABDOMEN: Soft and nontender. No distention. No organomegaly. EXTREMITIES: No bilateral lower extremity edema. NEUROLOGIC: Awake, alert and verbal. Follows commands. MEDICATIONS: Reviewed. Tylenol 650 mg every 6 hours p.r.n. fever greater than 100.4, Diamox 125 mg p.o. daily, Xanax 0.5 mg twice a day, aspirin 81 mg daily, Vantin 200 mg every 12 hours, Pepcid 40 mg daily, Lasix 40 mg IV push daily, Atrovent 0.5 mg inhalation every 6 hours, Xopenex 1.25 mg inhalation every 6 hours, Xopenex 1.25 mg inhalation every 2 hours p.r.n., Imodium 2 mg every 6 hours p.r.n., Claritin 10 mg at bedtime, Solu-Medrol 40 mg every 12 hours, Singulair 10 mg at bedtime, oxycodone 15 mg twice a day p.r.n., OxyContin 20 mg twice a day, Daliresp 500 mcg daily, sotalol 80 mg twice a day, spironolactone 25 mg daily and verapamil 100 mg p.o. daily. LABORATORY DATA: Reviewed. WBC 14.8, RBC 4.2, hemoglobin 11.4, hematocrit 36 and platelets 198. Sodium 135, potassium 4.5, chloride 98, carbon dioxide 32, anion gap of 11, BUN 17, creatinine 0.5, GFR greater than 60, random glucose 225, calcium 8.8, magnesium 2.4, total bilirubin 0.2, AST 19, ALT 20, alkaline phosphatase 66, total protein 6.3, albumin 2.3, globulin 3 and albumin-globulin ratio 1.1. Vitamin B12 of 779, folate 7.6, ferritin 26.3, iron 44, TIBC 328 and percent saturation 13. Stool for occult blood negative. IMPRESSION AND PLAN: Severe chronic obstructive lung disease, nonischemic cardiomyopathy; mild pulmonary hypertension; atrial fibrillation, requiring ablation in the past; hypertension; sleep apnea syndrome; diabetes; coronary artery disease; anemia; history of kyphoplasty in the past with vertebral compression fracture. Continue steroids, inhaled bronchodilators, antibiotic therapy, deep venous thrombosis prophylaxis and gastric prophylaxis. Continue Diamox. We will give the patient IV iron 200 mg x1 dose now and then daily for three days for anemia. The patient's ferritin level is 26.3 and in this patient as expected that this ferritin level should be much higher and hemoglobin as well should be must to higher in this patient due to respiratory issues at this time. We recommend physical therapy for this patient. The patient is expected to be transfer to long-term acute care today. This patient was seen and examined with Dr. Mercado. Discussed assessment and plan as described above. This patient was seen and examined with Andre Johnson, nurse practitioner. Discussed assessment and plan as described above. Thank you for this consult. We will follow with you. Andre Johnson APN Shaila Mercado MD [facility]
[2018-10-15 18:34] VITALS: BP 110/72
--- NOTE | 2018-10-15 21:28 | DS ---
HISTORY OF PRESENT ILLNESS: The patient is a 58-year-old, seen and examined. He was admitted because of increasing cough, congestion, and shortness of breath. He was found to have pneumonia and was given IV antibiotic, IV steroid, nebulizer treatment, and seems to be doing well. He still require high-flow oxygen, get very extremely short of breath and hypoxic upon minimal exertion and being transferred to LT[facility] today. PHYSICAL EXAMINATION: GENERAL: He is awake and alert, able to communicate. VITAL SIGNS: He is afebrile, pulse 84, and blood pressure 112/64. LUNGS: Bilateral fair airflow, but has diffusely decreased breath sounds. No rhonchi or crackles noted. HEART: S1 and S2 audible. ABDOMEN: Soft, nontender, and obese. No hepatosplenomegaly. NEUROLOGIC: He is awake and alert. Able to communicate. LABORATORY DATA: WBC 14.8, hemoglobin 11.4, hematocrit 36, and platelet 198. Chemistry; sodium 135, potassium 4.5, chloride 98, CO2 of 32, BUN 17, creatinine 0.5, and blood sugar of 225. ASSESSMENT: 1. Chronic obstructive pulmonary disease exacerbation. 2. Hypertension, currently hypotensive. 3. History of atrial fibrillation, status post radiofrequency ablation, still gets intermittent atrial fibrillation. 4. Hypertension. 5. History of anemia. 6. Nonischemic cardiomyopathy. 7. Chronic degenerative disk disease. 8. Deconditioning and difficulty walking. 9. Anxiety disorder. PLAN: Currently, the patient is on spironolactone 25 daily. He has been started on Atrovent. He is on sotalol 80 twice a day, verapamil 180 mg daily and he is being maintained on Daliresp. He has been started on Diamox 250 mg daily and aspirin 81 daily. He is on oxycodone . He is on prednisone 40 mg every 12 hours that will be tapered down. He is on Vantin. He is on Xanax. We will follow up. The patient will be transferred to LTAC today after seen by motor vehicle license clerk motor vehicle license clerk is agreeable. Ross Bowman MD [facility] # [id number]
== END 2018-10-15 20:31 | DRG 190 ==
LOC: ED 11:57 → ERH 13:55 → 2RSO 15:45 → 5RNO 10-11 12:27
PROVIDERS: ADMIT Internal Medicine; ATTEND Internal Medicine
PROC: 5A09457 Assistance with Respiratory Ventilation, 24-96 Consecutive Hours, Continuous Positive Airway Pressure (ICD-10-PCS; principal; 2018-10-11)
DX: J44.1 Chronic obstructive pulmonary disease with (acute) exacerbation (principal); J18.9 Pneumonia, unspecified organism; I42.9 Cardiomyopathy, unspecified; N17.9 Acute kidney failure, unspecified; J44.0 Chronic obstructive pulmonary disease with (acute) lower respiratory infection; Z99.81 Dependence on supplemental oxygen; I11.0 Hypertensive heart disease with heart failure; I48.0 Paroxysmal atrial fibrillation; D64.9 Anemia, unspecified; Z79.899 Other long term (current) drug therapy; Z87.891 Personal history of nicotine dependence; K59.03 Drug induced constipation; I27.20 Pulmonary hypertension, unspecified; G47.30 Sleep apnea, unspecified; E11.9 Type 2 diabetes mellitus without complications; I95.9 Hypotension, unspecified; E03.9 Hypothyroidism, unspecified; E11.59 Type 2 diabetes mellitus with other circulatory complications; E66.3 Overweight; E78.5 Hyperlipidemia, unspecified; F41.9 Anxiety disorder, unspecified; G89.29 Other chronic pain; I08.1 Rheumatic disorders of both mitral and tricuspid valves; I25.10 Atherosclerotic heart disease of native coronary artery without angina pectoris; I25.2 Old myocardial infarction; I48.2 Chronic atrial fibrillation; I50.9 Heart failure, unspecified; K21.9 Gastro-esophageal reflux disease without esophagitis; M19.90 Unspecified osteoarthritis, unspecified site; M81.0 Age-related osteoporosis without current pathological fracture; R09.02 Hypoxemia; T40.605A Adverse effect of unspecified narcotics, initial encounter; Z79.82 Long term (current) use of aspirin; Z87.310 Personal history of (healed) osteoporosis fracture; Z68.27 Body mass index [BMI] 27.0-27.9, adult